=== PATIENT | female | born 1960 | race Caucasian/White ===

== ENCOUNTER 2020-08-17 12:01 | Outpatient (REF) | payer MEDICARE, SELFPAY ==
--- NOTE | 2020-08-17 12:07 | MM_ITS ---
EXAMINATION: MM SCREENING DIGITAL BREAST TOMOSYNTHESIS, BILATERAL CLINICAL INFORMATION: Screening. Asymptomatic. The lifetime risk of breast cancer based on the Tyrer-Cuzick Model is 7.0%. COMPARISON: Mammography: August 12, 2019 and studies dating back to September 18, 2010 TECHNIQUE: Digital breast tomosynthesis is performed in both the craniocaudal and mediolateral oblique views along with computer-aided detection (CAD). Synthesized 2D images are generated from the tomosynthesis. FINDINGS: There are scattered areas of fibroglandular density (ACR BI-RADS breast composition Category b). There are no significant masses, abnormal calcifications, or other abnormalities. MM/MM tomosynthesis screening BI IMPRESSION: There are no significant changes from prior study. ASSESSMENT: BI-RADS 1: Negative RECOMMENDATION: Routine annual mammography screening. This patient's information was entered into a reminder system with a target due date for their next mammogram.
--- NOTE | 2020-08-26 10:30 | MHC.HEMONCSW ---
RECEIVED YOHANA BELL FOR CT CHEST WITH C AUTH# [id number] RANGE OF SERVICE; 08/26/20 TO 02/22/21 GIVEN TO [employer] LOADER TO COMPLETE THIS TASK.
== END 2020-08-17 12:02 | disposition home or self-care (01) ==
LOC: HO.MAMMO 12:01
PROVIDERS: Visit Provider Nurse Practitioner Family
DX: Z12.31 Encounter for screening mammogram for malignant neoplasm of breast (principal)
CPT/HCPCS: 77063; 77067

== ENCOUNTER 2020-08-31 08:38 | Outpatient (REF) | payer MEDICARE, SELFPAY ==
--- NOTE | 2020-08-31 08:41 | CT_ITS ---
EXAMINATION: CT CHEST WITH CONTRAST CLINICAL INFORMATION: Lung mass. Smoker. PE. COMPARISON: CTA chest 07/09/2020. TECHNIQUE: Multidetector volumetric CT imaging of the chest was obtained after the administration of 65 mL of Omnipaque 350 intravenous contrast without immediate adverse reactions. Axial MIP volume rendering provided. Sagittal and coronal reformatted images were obtained. This CT examination was performed using dose optimization techniques as appropriate, variously including the following: *Automated exposure control *Adjustment of mA and/or kV according to patient size (this includes techniques or standardized protocols for targeted exams where dose is matched to indication/reason for exam; i.e. extremities or head) *Use of iterative reconstruction technique DLP: 125 mGy-cm FINDINGS: FAC[employer]: Unremarkable. LUNGS: Previously visualized irregular infiltrative and mass-like opacity right lower lobe has resolved with residual stranding and patchy density likely scarring or atelectasis with minimal extension to the right posterior pleural space. No other pulmonary nodule, mass or consolidation seen. There is mild emphysema, stable. MEDIASTINUM: The heart size and the great vessels are normal caliber. There is no pericardial effusion. The central trachea and the bronchi are widely patent. The thyroid lobes are symmetrical and normal. The scan is not optimal to evaluate for pulmonary embolism. PLEURA: There is minimal loculated fluid along the right pleura and right lower lung, similar to previous study. AXILLA: Small shotty lymph nodes are seen in the axilla slightly more prominent on the left. UPPER ABDOMEN: The liver is normal size, shape and density. There is a 1.4 cm hypodensity in left hepatic lobe. OSSEOUS STRUCTURES: No lytic process seen. There is mild degenerative ventral spurring throughout dorsal spine. Mild straightening of thoracic kyphosis is noted. CT/CT chest w con IMPRESSION: Significant interval improvement in the right lower lobe infiltrative mass-like opacity from the previous study. There are residual atelectatic changes or scarring in the right lower lobe. Rest of the lungs are clear. There is minimal loculated anterior pleural effusion similar to previous study. Right posterior pleural effusion has resolved. Small cyst and likely a second smaller cyst in the left hepatic lobe similar to previous study.
[2020-08-31] MEDS: iohexoL 350 MG/ML 100 ML INFUS..BTL 65 ML IV (10:18)
== END 2020-08-31 08:39 | disposition home or self-care (01) ==
LOC: HO.CT 08:38
PROVIDERS: PCP Nurse Practitioner Family; Visit Provider Internal Medicine
DX: R91.8 Other nonspecific abnormal finding of lung field (principal)
CPT/HCPCS: 71260; Q9967

== ENCOUNTER 2020-09-05 13:04 | Outpatient (REF) | payer MEDICARE, SELFPAY ==
[2020-09-05 14:14] LABS: MANUAL DIFF FLAG NO
[2020-09-05 14:19] LABS: Basophils Absolute Auto 0.1 X10*3/uL (0.0-0.2); Basophils Percent Auto 0.6 % (0-2); Eosinophils Absolute Auto 0.4 X10*3/uL (0.0-0.4); Eosinophils Percent Auto 4.4 % (0-4); Hematocrit 34.4 % (37-47); Hemoglobin 11.6 g/dl (12.0-16.0); Imm Gran Abs Auto 0.02 X10*3/uL (0.00-0.03); Imm Gran Pct Auto 0.3 % (0.0-0.4); Lymphocytes Percent Auto 24.7 % (20-40); Mean Corpuscular HGB Conc 33.7 g/dl (31.0-35.0); Mean Corpuscular Hemoglobin 32.9 pg (27.0-33.0); Mean Corpuscular Volume 97.5 fL (80-98); Mean Platelet Volume 9.1 fL (9.4-12.3); Monocytes Absolute Auto 0.8 X10*3/uL (0.1-1.2); Monocytes Percent Auto 10.3 % (2-11); Neutrophils Absolute Auto 4.8 X10*3/uL (2.0-8.3); Neutrophils Percent Auto 59.7 % (45-73); Platelet Count 279 X10*3/uL (160-400); Red Blood Count 3.53 X10*6/uL (4.20-5.50); Red Cell Distribution Width 13.9 % (11.0-16.0)
[2020-09-05 14:49] LABS: Alanine Aminotransferase 9 U/L (0-31); Albumin Level 4.2 g/dL (3.5-5.0); Alkaline Phosphatase 57 U/L (39-117); Anion Gap 13 (12-20); Aspartate Amino Transferase 18 U/L (5-31); Bilirubin Total 0.3 mg/dL (0.0-1.0); Blood Urea Nitrogen 16 mg/dL (9-16); C Reactive Protein 0.43 mg/dL (< or = 0.50); Carbon Dioxide 26 mmol/L (22-29); Chloride 105 mmol/L (96-108); Estimated Glomerular Filt Rate > 60; Glucose Random 100 mg/dL (60-115); Potassium 5.3 mmol/l (3.3-5.1); Sodium 139 mmol/L (135-145); Total Protein 6.4 g/dL (6.5-8.0)
[2020-09-05 15:24] LABS: Erythrocyte Sedimentation Rate 7 MM/HR (0-20)
== END 2020-09-05 13:05 | disposition home or self-care (01) ==
LOC: HO.HMGCLDS 13:04
PROVIDERS: PCP Nurse Practitioner Family; Visit Provider Student in an Organized Health Care Education/Training Program
DX: M13.80 Other specified arthritis, unspecified site (principal)
CPT/HCPCS: 36415; 80053; 85025; 85652; 86140

== ENCOUNTER 2020-09-07 11:31 | Outpatient (REF) | payer MEDICARE, SELFPAY ==
--- NOTE | 2020-09-07 | XR_ITS ---
EXAMINATION: XR HIP, LEFT CLINICAL INFORMATION: Acute left hip pain COMPARISON: None TECHNIQUE: Pelvis one view. Three views of the left hip. FINDINGS: LEFT HIP: No acute fracture or dislocation is seen. Kokk-tl-ipnkzgei left hip arthritis. Small ossification superior to the greater trochanter. PELVIS: Leoy-hv-xvhysqlw right hip arthritis. SI joints and symphysis pubis are intact. Degenerative changes in the lower lumbar spine. Prominent spurring from the left iliac crest, and to a lesser degree on the right side. IUD projected over the pelvis. Visualized bowel gas pattern appears unremarkable. XR/XR hip LT w PEL1V IMPRESSION: 1. Oyer-wl-kbdgmldm left hip arthritis. No evidence of acute fracture or dislocation. 2. Idbi-eu-ppfxrlin right hip arthritis.
== END 2020-09-07 11:32 | disposition home or self-care (01) ==
LOC: HO.HMGCX 11:31
PROVIDERS: PCP Nurse Practitioner Family; Visit Provider Nurse Practitioner Family
DX: M25.552 Pain in left hip (principal)
CPT/HCPCS: 73502

== ENCOUNTER → 2020-09-08 12:22 | Outpatient (BNVA) | payer MEDICARE, SELFPAY | PROVIDERS: PCP Nurse Practitioner Family; Referring Provider Nurse Practitioner Family; Visit Provider Student in an Organized Health Care Education/Training Program | DX: M06.00 Rheumatoid arthritis without rheumatoid factor, unspecified site (principal); Z79.899 Other long term (current) drug therapy | CPT/HCPCS: 99212 ==

== ENCOUNTER → 2020-09-28 14:03 | Outpatient (BNVA) | payer MEDICARE, SELFPAY | PROVIDERS: PCP Nurse Practitioner Family; Visit Provider Internal Medicine | DX: I26.99 Other pulmonary embolism without acute cor pulmonale (principal); R91.8 Other nonspecific abnormal finding of lung field; F17.200 Nicotine dependence, unspecified, uncomplicated | CPT/HCPCS: 99212 ==

== ENCOUNTER 2020-10-04 13:02 | Outpatient (REF) | payer MEDICARE, SELFPAY | END 2020-10-04 13:03 | disposition home or self-care (01) | LOC: HO.RESP 13:02 | PROVIDERS: PCP Nurse Practitioner Family; Visit Provider Internal Medicine | DX: Z13.89 Encounter for screening for other disorder (principal) ==

== ENCOUNTER 2020-12-20 14:06 | Outpatient (REF) | payer MEDICARE, SELFPAY ==
--- NOTE | 2020-12-20 17:41 | PFT_ITS ---
Forced vital capacity, FEV1, CAX94-46 are all normal. HPE76-45 is slightly decreased. MVV normal. Post bronchodilator therapy, BBH94-15 is also improved to normal. Total lung capacity and residual volume normal. Diffusion capacity slightly decreased. CONCLUSION: Mild degree of small airway obstructive disorder, which improves after bronchodilator therapy. This may be consistent with a mild degree of bronchial asthma. Clinical correlation is recommended. MD ROSEANNA Hairston/PRETTY / [id number]
== END 2020-12-20 14:07 | disposition home or self-care (01) ==
LOC: HO.RESP 14:06
PROVIDERS: PCP Nurse Practitioner Family; Visit Provider Internal Medicine
DX: I26.99 Other pulmonary embolism without acute cor pulmonale (principal); F17.200 Nicotine dependence, unspecified, uncomplicated
CPT/HCPCS: 94060; 94727; 94729

== ENCOUNTER → 2021-03-06 13:40 | Outpatient (BNVA) | payer MEDICARE, SELFPAY | PROVIDERS: PCP Nurse Practitioner Family; Visit Provider Internal Medicine | DX: I26.99 Other pulmonary embolism without acute cor pulmonale (principal); F17.200 Nicotine dependence, unspecified, uncomplicated; R91.8 Other nonspecific abnormal finding of lung field | CPT/HCPCS: 99212 ==

== ENCOUNTER 2021-04-06 14:47 | Outpatient (REF) | payer MEDICARE, SELFPAY ==
[2021-04-06 15:12] LABS: MANUAL DIFF FLAG NO
[2021-04-06 15:19] LABS: Basophils Absolute Auto 0.1 X10*3/uL (0.0-0.2); Basophils Percent Auto 0.6 % (0-2); Eosinophils Absolute Auto 0.4 X10*3/uL (0.0-0.4); Eosinophils Percent Auto 4.4 % (0-4); Hematocrit 35.6 % (37-47); Hemoglobin 12.1 g/dl (12.0-16.0); Imm Gran Abs Auto 0.02 X10*3/uL (0.00-0.03); Imm Gran Pct Auto 0.2 % (0.0-0.4); Lymphocytes Absolute Auto 1.9 X10*3/uL (1.2-4.9); Lymphocytes Percent Auto 23.2 % (20-40); Mean Corpuscular Hemoglobin 33.9 pg (27.0-33.0); Mean Corpuscular Volume 99.7 fL (80-98); Mean Platelet Volume 8.7 fL (9.4-12.3); Monocytes Percent Auto 11.5 % (2-11); Neutrophils Percent Auto 60.1 % (45-73); Platelet Count 248 X10*3/uL (160-400); Red Blood Count 3.57 X10*6/uL (4.20-5.50); Red Cell Distribution Width 12.8 % (11.0-16.0); White Blood Count 8.3 X10*3/uL (4.8-10.8)
[2021-04-06 15:27] LABS: Estimated Average Glucose 97 mg/dL
[2021-04-06 15:49] LABS: Alanine Aminotransferase 11 U/L (0-31); Albumin Level 4.3 g/dL (3.5-5.0); Alkaline Phosphatase 61 U/L (39-117); Anion Gap 11 (12-20); Aspartate Amino Transferase 23 U/L (5-31); Bilirubin Total 0.4 mg/dL (0.0-1.0); Blood Urea Nitrogen 16 mg/dL (9-16); C Reactive Protein 0.32 mg/dL (< or = 0.50); Calcium 9.4 mg/dL (8.4-10.2); Carbon Dioxide 29 mmol/L (22-29); Chloride 103 mmol/L (96-108); Estimated Glomerular Filt Rate > 60; Glucose Random 75 mg/dL (60-115); Potassium 4.4 mmol/L (3.3-5.1); Sodium 139 mmol/L (135-145); Total Protein 6.6 g/dL (6.5-8.0)
[2021-04-06 15:58] LABS: Cholesterol 190 mg/dL; Erythrocyte Sedimentation Rate 7 MM/HR (0-20); HDL Cholesterol 97 mg/dL; LDL Cholesterol Calculated 73 mg/dl; Triglycerides 104 mg/dL
[2021-04-06 16:09] LABS: Vitamin D 25-OH Total 35.3 ng/mL (>30)
== END 2021-04-06 14:48 | disposition home or self-care (01) ==
LOC: HO.LAB 14:47
PROVIDERS: Absent Provider Student in an Organized Health Care Education/Training Program; PCP Nurse Practitioner Family; Visit Provider Nurse Practitioner Family
DX: M06.00 Rheumatoid arthritis without rheumatoid factor, unspecified site (principal); E78.2 Mixed hyperlipidemia; I10 Essential (primary) hypertension; E11.610 Type 2 diabetes mellitus with diabetic neuropathic arthropathy; E55.9 Vitamin D deficiency, unspecified
CPT/HCPCS: 36415; 80053; 80061; 82306; 83036; 85025; 85652; 86140

== ENCOUNTER 2021-04-18 15:15 | Outpatient (REF) | payer MEDICARE, SELFPAY ==
--- NOTE | ~2021-04-18 | XR_ITS ---
EXAMINATION: XR FOOT, RIGHT XR FOOT, LEFT CLINICAL INFORMATION: Rheumatoid arthritis with rheumatoid factor. COMPARISON: 11/09/2019 and studies dating back to 06/10/2012. TECHNIQUE: 3 views of each foot. FINDINGS: RIGHT FOOT: No acute fracture or dislocation is evident. There has been progression in narrowing of the tarsometatarsal joints as well as the naviculocuneiform joints with marginal spurring and sclerosis. The 1st carpometacarpal joint space appears maintained. There appears to be some compression of the navicular which is chronic. The metatarsophalangeal joints appear maintained. There is question of periarticular erosion about the base of the 1st proximal phalanx. There is soft tissue prominence seen about the 5th metatarsophalangeal joint. There appears be a periarticular erosion involving the 5th metatarsal head. There is some deformity about the distal 4th metatarsal which is likely post traumatic in nature. A large plantar calcaneal spur is seen. Small Achilles calcaneal spur noted. LEFT FOOT: No acute fracture or dislocation is evident. Soft tissue swelling is seen about the 5th metatarsophalangeal joint. There appears be some degree of subluxation about the 5th metatarsophalangeal joint. There is narrowing with sclerosis and spurring seen involving the tarsometatarsal joints. No significant narrowing of the intertarsal joint space is identified. There is some degenerative spurring about the 1st metatarsophalangeal joint. There is some deformity from previous healed fracture of the 3rd proximal phalanx. Interphalangeal joints appear unremarkable. There is some irregularity about the distal tuft of the left 1st distal phalanx with soft tissue swelling present. No gas within the soft tissues is appreciated. Osteomyelitis versus postsurgical change likely. Plantar and Achilles calcaneal spurs present. XR/XR foot RT min 3V IMPRESSION: Bilateral degenerative change of the feet, right greater than left, as described without significant erosive component arthritide. Question osteomyelitis versus postsurgical change distal tuft left 1st toe which is new since the study of 10/12/2019.
== END 2021-04-18 15:16 | disposition home or self-care (01) ==
LOC: HO.HMGCX 15:15
PROVIDERS: PCP Nurse Practitioner Family; Visit Provider Student in an Organized Health Care Education/Training Program
DX: M06.00 Rheumatoid arthritis without rheumatoid factor, unspecified site (principal)
CPT/HCPCS: 73630

== ENCOUNTER → 2021-04-21 14:36 | Outpatient (BNVA) | payer MEDICARE, SELFPAY | PROVIDERS: PCP Nurse Practitioner Family; Visit Provider Student in an Organized Health Care Education/Training Program | DX: M06.00 Rheumatoid arthritis without rheumatoid factor, unspecified site (principal) | CPT/HCPCS: 99212 ==

== ENCOUNTER → 2021-06-29 13:36 | Outpatient (BNVA) | payer MEDICARE, SELFPAY | PROVIDERS: PCP Nurse Practitioner Family; Visit Provider Internal Medicine | DX: J42 Unspecified chronic bronchitis (principal); F17.200 Nicotine dependence, unspecified, uncomplicated; I26.99 Other pulmonary embolism without acute cor pulmonale | CPT/HCPCS: 99212 ==

== ENCOUNTER → 2021-07-21 11:30 | Outpatient (BNVA) | payer MEDICARE, SELFPAY | PROVIDERS: PCP Nurse Practitioner Family; Visit Provider Nurse Practitioner Family | DX: M06.00 Rheumatoid arthritis without rheumatoid factor, unspecified site (principal) | CPT/HCPCS: 99212 ==

== ENCOUNTER 2021-09-13 13:16 | Outpatient (REF) | payer MEDICARE, SELFPAY ==
--- NOTE | ~2021-09-13 | CT_ITS ---
EXAMINATION: CT CHEST SCREENING CLINICAL INFORMATION: Current smoker. 40 pack-year history. COMPARISON: Previous chest CT scans most recent August 2020 TECHNIQUE: Multidetector volumetric CT imaging of the chest is performed without contrast using low dose technique. Additional 2D coronal and sagittal reformatted images and axial 3D maximum intensity projection (MIP) images are generated on the CT workstation. This CT examination was performed using dose optimization techniques as appropriate, variously including the following: *Automated exposure control *Adjustment of mA and/or kV according to patient size (this includes techniques or standardized protocols for targeted exams where dose is matched to indication/reason for exam; i.e. extremities or head) *Use of iterative reconstruction technique DLP: 57 mGy-cm FINDINGS: LUNGS: There is evidence of mild paraseptal emphysema. There is a 1 cm nodular density in the posterior costophrenic sulcus of the right lower lobe probably representing subsegmental atelectasis or scarring. This is decreased in size from prior exam August 2020. The lungs are otherwise clear. MEDIASTINUM: There is evidence of atherosclerotic disease. The mediastinum is otherwise normal. PLEURA: There is a small loculated fluid collection or cyst along the anterior right diaphragmatic surface. This is unchanged. No other pleural effusion or pleural thickening. AXILLA: No lymphadenopathy. UPPER ABDOMEN: Stable 1.4 cm low-attenuation lesion in the left lobe of the liver probably representing a cyst. Of atherosclerotic disease. OSSEOUS STRUCTURES: There are degenerative changes of the spine and curvature to the right. CT/CT lung screening IMPRESSION: Interval decrease in scarring or subsegmental atelectasis in the right lower lobe. Mild paraseptal emphysema. Stable right anterior lower loculated pleural fluid collection. ASSESSMENT: Lung-RADS category 2: Benign RECOMMENDATION: Annual low-dose chest CT follow-up recommended.
== END 2021-09-13 13:17 | disposition home or self-care (01) ==
LOC: HO.CT 13:16
PROVIDERS: PCP Nurse Practitioner Family; Visit Provider Physician Assistant Medical
DX: Z12.2 Encounter for screening for malignant neoplasm of respiratory organs (principal); F17.210 Nicotine dependence, cigarettes, uncomplicated
CPT/HCPCS: 71271

== ENCOUNTER 2021-10-06 08:42 | Outpatient (REF) | payer MEDICARE, SELFPAY | END 2021-10-06 08:43 | disposition home or self-care (01) | LOC: HO.HMGCLDS 08:42 | PROVIDERS: PCP Nurse Practitioner Family; Visit Provider Internal Medicine | DX: Z20.822 Contact with and (suspected) exposure to COVID-19 (principal) | CPT/HCPCS: C9803; U0003; U0005 ==

== ENCOUNTER → 2021-11-08 13:55 | Outpatient (BNVA) | payer MEDICARE, SELFPAY | PROVIDERS: PCP Nurse Practitioner Family; Visit Provider Internal Medicine | DX: J42 Unspecified chronic bronchitis (principal); F17.210 Nicotine dependence, cigarettes, uncomplicated; Z71.6 Tobacco abuse counseling | CPT/HCPCS: 99212 ==

== ENCOUNTER 2022-01-09 03:27 | Emergency (ER) | payer MEDICARE, SELFPAY ==
[2022-01-09 03:35] VITALS: BP 152/85; PULSE 92; RESP 14; TEMP 37; O2SAT 93; BMI 31.1
--- NOTE | 2022-01-09 04:10 | ED_ITS ---
HPI - Dental/Oral General Chief complaint: Dental/Oral Stated complaint: molar pulled 3/8; severe headache Time Seen by Provider: 01/09/22 04:09 Source: patient Mode of arrival: ambulatory Limitations: no limitations History of Present Illness HPI Narrative: 61-year-old female status post lower left 3rd molar tooth extraction 7 days ago, patient is taking OxyContin and oxycodone for chronic pain issue that patient ran out of her medication came in today for severe pain in in the left side of her face. Patient otherwise declined any fever or chills. Related Data Home Medications Medication Instructions Recorded Confirmed amlodipine 2.5 mg tablet 1 tab PO DAILY 08/12/20 11/08/21 baclofen 10 mg tablet 1 tab PO TID 08/12/20 11/08/21 blood sugar diagnostic (FreeStyle 08/12/20 11/08/21 Lite Strips) bupropion HCl 300 mg 24 hr tablet, 1 tab PO DAILY 08/12/20 11/08/21 extended release diclofenac sodium 1 % topical gel 4 g TOPICAL TID PRN 08/12/20 11/08/21 docusate sodium 100 mg capsule 1 cap PO BID 08/12/20 11/08/21 (DOK) furosemide 20 mg tablet 1 tab PO BID PRN 08/12/20 11/08/21 gabapentin 300 mg capsule 900 mg PO TID 08/12/20 11/08/21 hydroxyzine HCl 25 mg tablet 1 tab PO TID PRN 08/12/20 11/08/21 levothyroxine 88 mcg tablet 1 tab PO QAM 08/12/20 11/08/21 (Euthyrox) meloxicam 15 mg tablet 1 tab PO DAILY 08/12/20 11/08/21 metformin 850 mg tablet 1 tab PO BID 08/12/20 11/08/21 omeprazole 20 mg capsule,delayed 1 cap PO DAILY 08/12/20 11/08/21 release oxybutynin chloride 10 mg 1 tab PO DAILY 08/12/20 11/08/21 tablet,extended release 24 hr oxycodone 20 mg tablet,crush 1 tab PO Q12H 08/12/20 11/08/21 resistant,extended release 12 hr (OxyContin) oxycodone-acetaminophen 10 mg-325 2 tab PO Q6H PRN 08/12/20 11/08/21 mg tablet simvastatin 20 mg tablet 1 tab PO BEDTIME 08/12/20 11/08/21 venlafaxine 150 mg 1 cap PO DAILY 08/12/20 11/08/21 capsule,extended release 24 hr nystatin 100,000 unit/gram topical TOPICAL BID PRN 03/06/21 11/08/21 cream albuterol sulfate 90 mcg/actuation 0 mcg INHALATION 11/08/21 11/08/21 aerosol inhaler clotrimazole-betamethasone 1 appl TOPICAL BID 11/08/21 11/08/21 %-0.05 % topical cream Previous Rx's Medication Instructions Recorded hydroxychloroquine 200 mg tablet 200 mg PO BID #60 tab 07/18/21 Allergies Allergy/AdvReac Type Severity Reaction Status Date / Time lisinopril Allergy Intermediate Swelling Verified 11/08/21 14:02 clavulanic acid Allergy Mild RASH Verified 11/08/21 14:02 [From Augmentin] aripiprazole [From ABILIFY] AdvReac Intermediate EDEMA Verified 11/08/21 14:02 duloxetine [From CYMBALTA] AdvReac Intermediate WT Verified 11/08/21 14:02 GAIN/EDEMA ibuprofen AdvReac Unknown kidney Verified 11/08/21 14:02 function Review of Systems Review of Systems: All other systems are reviewed and are negative Constitutional: Reports as per HPI and Reports no additional constitutional complaints Eyes: Reports as per HPI and Reports no additional eye complaints Reports system reviewed and no additional complaints, except as documented Cardiovascular: Reports as per HPI and Reports no additional cardiovascular c omplaints Respiratory: Reports as per HPI and Reports no additional respiratory complaints Gastrointestinal: Reports as per HPI and Reports no additional gastrointestinal complaints Genitourinary: Reports no additional female genitourinary complaints Musculoskeletal: Reports no additional musculoskeletal complaints Skin/Breast: Reports system reviewed and no additional complaints, except as docu Psychiatric: Reports no additional psychiatric complaints Endocrine: Reports no additional endocrine complaints Hematologic/Lymphatic: Reports no additional hematologic/lymphatic complaints Allergic/Immunologic: Reports no additional allergic/immunologic complaints Reports system reviewed and no additional complaints, except as documented and Reports Abnormal speech present [facility] Past Medical History Medical History Carpal tunnel syndrome Chronic bronchitis Diabetes Neuropathy Osteoarthritis Osteomyelitis Pilonidal cyst Pleurisy Pulmonary embolism Rheumatoid arthritis Seronegative rheumatoid arthritis Smoker Surgical History H/O hernia repair History of left knee replacement (~2017) History of surgery on arm Previous back surgery (~2016) Family History Family History Mother CHF (congestive heart failure) Stroke Uterine cancer Father CHF (congestive heart failure) Sister Diabetes Brother Diabetes Pulmonary embolism Social History Social History Are you a primary prompt care rn to a significant other at home: No Alcohol intake: current Alcohol intake frequency: a few times a week Alcohol type: hard liquor Patient Tobacco Use Status: Current everyday Tobacco user Tobacco use type: Cigarette Cigarette Packs Per Day: 1 Cigarettes Per Day: 20 Years Smoked: 40 Advance Directives: No Patient : No Physical Exam Vital Signs: Vital Signs: Last Vital Signs Temp 98.6 F 01/09/22 03:35 Pulse 92 01/09/22 03:35 Resp 14 01/09/22 03:35 BP 152/85 H 01/09/22 03:35 Pulse Ox 93 01/09/22 03:35 BMI result Body Mass Index 31.1 Vital signs have been reviewed as appeared to be correct. Blood pressure normal. Heart rate normal. Respiration rate normal. Temperature normal. Oxygen saturation normal. Appearance: Alert. Oriented X3. No acute distress. Head: Normal external exam. Normocephalic. Atraumatic. No [place] signs noted. No raccoon eyes noted. Mouth exam: Left side of the lower show tenderness, no fluctuation, no erythema, no dry sockets is appreciated. Eyes: PERRLA. EOMI. Conjunctiva and sclera normal. Eyelids normal. ENT: TM's Normal. Pharynx normal. Uvula midline. Moist mucous membranes. No trismus noted. No drooling noted. No muffled voice noted. Neck: Normal inspection. Neck supple. FROM. No adenopathy. Thyroid Normal. No meningeal signs. No neck mass noted. CVS: Normal heart rate and rhythm. Heart sound normal. No murmurs noted. Pulses normal throughout. Respiratory: No respiratory distress. Painless inspiration. Breath sounds normal. No wheezes/rales/rhonchi noted. Chest nontender. No accessory muscle usage noted or decreased air movement noted. Abdomen: Soft and nontender. Bowel sounds normal in all 4 quadrants. No distention noted. No organomegaly noted. No visible injury noted. Back: No CVA tenderness. Full range of motion noted. Skin: Skin warm and dry. Normal skin color. Normal skin turgor. No rashes/lesions/lacerations noted. Extremities: No lower extremity edema. Extremities exhibit normal range of motion. Extremities nontender. Neuro: Oriented X 3. Cranial nerve exam: II-XII are grossly intact No motor deficit. No sensory deficit. Reflexes normal. Course Course Course Narrative: Assessment and plan. 61-year-old female status post left lower 3rd molar extraction with post extraction pain, patient has very low threshold for pain and using narcotic for chronic pain issue. Patient feels better with 10 mg of oxycodone. Will d ischarge to follow-up with her dentist in the morning. Discharge Plan Discharge Clinical Impression: Toothache Patient Disposition: Home, Self-Care Instructions: Toothache (ED) Additional Instructions: Call your dentist today and make an appointment to check for postoperative extraction complication. Prescriptions: No Action hydroxychloroquine 200 mg tablet 200 mg PO BID Qty: 60 5RF oxybutynin chloride 10 mg tablet extended release 24hr 1 tab PO DAILY 0RF meloxicam 15 mg tablet 1 tab PO DAILY 0RF metformin 850 mg tablet 1 tab PO BID 0RF venlafaxine 150 mg capsule,extended release 24hr 1 cap PO DAILY 0RF amlodipine 2.5 mg tablet 1 tab PO DAILY 0RF (DME) FreeStyle Lite Strips Strip 1 strip MISCELLANEOUS BID 0RF levothyroxine [Euthyrox] 88 mcg tablet 1 tab PO QAM 0RF oxycodone-acetaminophen 10-325 mg tablet 2 tab PO Q6H PRN (Reason: pain) 0RF baclofen 10 mg tablet 1 tab PO TID 0RF simvastatin 20 mg tablet 1 tab PO BEDTIME 0RF docusate sodium [DOK] 100 mg capsule 1 cap PO BID 0RF gabapentin 300 mg capsule 900 mg PO TID 0RF omeprazole 20 mg capsule,delayed release(DR/EC) 1 cap PO DAILY 0RF bupropion HCl 300 mg tablet extended release 24 hr 1 tab PO DAILY 0RF oxycodone [OxyContin] 20 mg tablet,oral only,ext.rel.12 hr 1 tab PO Q12H 0RF hydroxyzine HCl 25 mg tablet 1 tab PO TID PRN (Reason: Itching) 0RF furosemide 20 mg tablet 1 tab PO BID PRN (Reason: Systemic Signs And Symptoms) 0RF diclofenac sodium 1 % gel 4 g topical TID PRN (Reason: Pain) 0RF nystatin 100,000 unit/gram cream topical BID PRN0RF albuterol sulfate 90 mcg/actuation HFA aerosol inhaler 0 mcg inhalation 0RF clotrimazole-betamethasone 1-0.05 % cream topical BID 0RF
[2022-01-09] MEDS: oxyCODONE HCl Immed Release 5 MG TABLET 10 MG PO (04:30)
== END 2022-01-09 04:34 | disposition home or self-care (01) ==
PROVIDERS: Emergency Provider Emergency Medicine; PCP Nurse Practitioner Family
DX: K08.89 Other specified disorders of teeth and supporting structures (principal); E11.9 Type 2 diabetes mellitus without complications; F17.200 Nicotine dependence, unspecified, uncomplicated; Z98.818 Other dental procedure status
CPT/HCPCS: 99283

== ENCOUNTER 2022-01-14 20:09 | Emergency (ER) | payer MEDICARE, SELFPAY | END 2022-01-14 22:38 | disposition left against medical advice (07) | PROVIDERS: Emergency Provider Emergency Medicine; PCP Nurse Practitioner Family | DX: R51.9 Headache, unspecified (principal) ==

== ENCOUNTER 2022-01-15 19:28 | Emergency (ER) | payer MEDICARE, SELFPAY | END 2022-01-15 19:55 | disposition left against medical advice (07) | PROVIDERS: Emergency Provider Emergency Medicine; PCP Nurse Practitioner Family | DX: R22.0 Localized swelling, mass and lump, head (principal) ==

== ENCOUNTER 2022-01-16 08:23 | Emergency (ER) | payer MEDICARE, SELFPAY ==
--- NOTE | ~2022-01-16 | CT_ITS ---
EXAMINATION: CT FACIAL BONES WITH CONTRAST CLINICAL INFORMATION: Third molar extraction. Left facial swelling and induration. COMPARISON: Previous CT scan November 2019 TECHNIQUE: Axial images through the facial bones following 85 mL Omnipaque 350 intravenous contrast. Sagittal and coronal reconstructions on the technologist workstation were performed. This CT examination was performed using dose optimization techniques as appropriate, variously including the following: *Automated exposure control *Adjustment of mA and/or kV according to patient size (this includes techniques or standardized protocols for targeted exams where dose is matched to indication/reason for exam; i.e. extremities or head) *Use of iterative reconstruction technique DLP: 411 mGy-cm FINDINGS: There is poor dentition. There is been extraction of multiple teeth on the left. There is enlargement of the left masseter muscle. There is low-attenuation or fluid collection in the left masseter muscle on both sides of the mandible suggestive of an abscess. This measures 3 x 5 cm in transverse and AP dimension and approximately 3 cm in longitudinal dimension. This is continuous with a more superior low-attenuation collection adjacent to the skull in the left temporalis muscle. This measures 1.2 x 5 cm and transverse and AP dimension and 4 cm in longitudinal dimension. There is overlying stranding of the subcutaneous fat. Visualized intracranial structures are normal. The orbits are normal. There is membranous soft tissue thickening seen in both maxillary sinuses. The paranasal sinuses are otherwise well aerated and clear. The temporomandibular joints are normal. There are degenerative changes of the cervical spine. There is shotty cervical lymphadenopathy. The naso, melinda-and hypopharynx and larynx are normal. Visualized salivary glands are normal. Vascular structures are normal. CT/CT facial bones w con IMPRESSION: Fluid collections in the left masseter muscle and left temporalis muscle suggestive of abscesses, likely odontogenic in origin.
[2022-01-16 08:55] VITALS: BP 144/79; PULSE 86; RESP 16; TEMP 36.8; O2SAT 96; BMI 30.3
--- NOTE | 2022-01-16 09:33 | ED.GENADULT ---
HPI - General Adult General Chief complaint: General Medical Stated complaint: Facial swelling Time Seen by Provider: 01/16/22 09:09 Source: patient Mode of arrival: ambulatory History of Present Illness HPI narrative: 61-year-old female with a past medical history of chronic pain on opiates, s/p left lower 3rd molar extracted 2 weeks ago presenting to the ED complaining of low-grade fever T-max 99 degrees, left-sided facial swelling/pain, nausea, & vomiting yesterday. Reports decreased p.o. intake secondary to nausea, left ear pain and painful swallowing. Has been taking Clindamycin. Denies chills, abdominal pain, diarrhea, inability to swallow Onset (ago): week(s) Related Data Home Medications Medication Instructions Recorded Confirmed amlodipine 2.5 mg tablet 1 tab PO DAILY 08/12/20 11/08/21 baclofen 10 mg tablet 1 tab PO TID 08/12/20 11/08/21 blood sugar diagnostic (FreeStyle 08/12/20 11/08/21 Lite Strips) bupropion HCl 300 mg 24 hr tablet, 1 tab PO DAILY 08/12/20 11/08/21 extended release diclofenac sodium 1 % topical gel 4 g TOPICAL TID PRN 08/12/20 11/08/21 docusate sodium 100 mg capsule 1 cap PO BID 08/12/20 11/08/21 (DOK) furosemide 20 mg tablet 1 tab PO BID PRN 08/12/20 11/08/21 gabapentin 300 mg capsule 900 mg PO TID 08/12/20 11/08/21 hydroxyzine HCl 25 mg tablet 1 tab PO TID PRN 08/12/20 11/08/21 levothyroxine 88 mcg tablet 1 tab PO QAM 08/12/20 11/08/21 (Euthyrox) meloxicam 15 mg tablet 1 tab PO DAILY 08/12/20 11/08/21 metformin 850 mg tablet 1 tab PO BID 08/12/20 11/08/21 omeprazole 20 mg capsule,delayed 1 cap PO DAILY 08/12/20 11/08/21 release oxybutynin chloride 10 mg 1 tab PO DAILY 08/12/20 11/08/21 tablet,extended release 24 hr oxycodone 20 mg tablet,crush 1 tab PO Q12H 08/12/20 11/08/21 resistant,extended release 12 hr (OxyContin) oxycodone-acetaminophen 10 mg-325 2 tab PO Q6H PRN 08/12/20 11/08/21 mg tablet simvastatin 20 mg tablet 1 tab PO BEDTIME 08/12/20 11/08/21 venlafaxine 150 mg 1 cap PO DAILY 08/12/20 11/08/21 capsule,extended release 24 hr nystatin 100,000 unit/gram topical TOPICAL BID PRN 03/06/21 11/08/21 cream albuterol sulfate 90 mcg/actuation 0 mcg INHALATION 11/08/21 11/08/21 aerosol inhaler clotrimazole-betamethasone 1 appl TOPICAL BID 11/08/21 11/08/21 %-0.05 % topical cream Previous Rx's Medication Instructions Recorded hydroxychloroquine 200 mg tablet 200 mg PO BID #60 tab 07/18/21 Allergies Allergy/AdvReac Type Severity Reaction Status Date / Time lisinopril Allergy Intermediate Swelling Verified 01/15/22 16:39 clavulanic acid Allergy Mild RASH Verified 01/15/22 16:39 [From Augmentin] aripiprazole [From ABILIFY] AdvReac Intermediate EDEMA Verified 01/15/22 16:39 duloxetine [From CYMBALTA] AdvReac Intermediate WT Verified 01/15/22 16:39 GAIN/EDEMA ibuprofen AdvReac Unknown kidney Verified 01/15/22 16:39 function Review of Systems Review of Systems: Constitutional: +Fever, No Chills, No Fatigue, No Malaise ENT/Mouth: +dental pain, + Ear Pain, No Nasal Congestion, No Sinus Pain, No Hoarseness, + sore throat, No Rhinorrhea, No Swallowing Difficulty Eyes: No Eye Pain, No Swelling, No Redness, No Vision Changes Cardiovascular: No Chest Pain, No SOB, No Edema, No Palpitations Respiratory: No Cough, No Sputum, No Dyspnea Gastrointestinal: + Nausea, + Vomiting, No Diarrhea, No Constipation, No Abdominal pain Genitourinary: No Dysuria, No Urinary Frequency, No Hematuria Musculoskeletal: No joint pain, No Myalgias, No Joint Swelling Skin: No Skin Lesions, No rash Neuro: No Weakness, No Numbness, No Dizziness, No Headache Yes all other systems are reviewed and are negative [facility] Past Medical History Attestation statement: The following information was validated with the patient. Medical History Carpal tunnel syndrome Chronic bronchitis Diabetes Neuropathy Osteoarthritis Osteomyelitis Pilonidal cyst Pleurisy Pulmonary embolism Rheumatoid arthritis Seronegative rheumatoid arthritis Smoker Surgical History H/O hernia repair History of left knee replacement (~2017) History of surgery on arm Previous back surgery (~2015) Family History Family History Mother CHF (congestive heart failure) Stroke Uterine cancer Father CHF (congestive heart failure) Sister Diabetes Brother Diabetes Pulmonary embolism Social History Social History Are you a primary customer care specialist to a significant other at home: No Alcohol intake: current Alcohol intake frequency: a few times a week Alcohol type: hard liquor Patient Tobacco Use Status: Current everyday Tobacco user Tobacco use type: Cigarette Cigarette Packs Per Day: 1 Cigarettes Per Day: 20 Years Smoked: 40 Advance Directives: No Advance Directives Information Provided: No Patient : No Physical Exam ED Vital Signs: Vital Signs - 24 hr 01/16/22 08:55 Temperature 98.3 F Pulse Rate 86 Respiratory Rate 16 Blood Pressure 144/79 H Pulse Oximetry 96 BMI result Body Mass Index 30.3 Const General: cooperative, healthy appearing, no acute distress, alert and awake Orientation/consciousness: patient oriented x3 Limitations: no limitations HENMT Other: + left-sided facial swelling noted to temporal area, mastoid, and frontal scalp. + indurated and tender to palpation, no erythema, no fluctuance, no crepitus + left lower 3rd molar with noted swelling, erythema, and pus drainage. No fluctuance appreciated Head: Yes normal to inspection Ears: hearing grossly normal bilaterally, external ears normal, TM's normal bilaterally and mastoid abnormal (+ left mastoid tenderness) General nose exam: Normal external nose present Face and sinus: No crepitus Mouth: Normal oral and palatal mucosa present and no drooling Throat: Yes uvula midline Eyes General: appearance normal, both eyes and all related structures EOM: EOMs intact bilaterally Neck Neck: Yes normal visual inspection, Yes no meningeal signs, Yes supple and No anterior neck swelling Resp Effort & Inspection: normal respiratory effort, not labored, no stridor and not tachypneic Auscultation: clear to auscultation bilaterally Cardio Rate: regular rate Heart sounds: S1 normal heart sound present and S2 normal heart sound present GI Inspection: Yes normal to inspection Palpation (GI): Soft to palpation, nontender and no guarding Skin Rashes: no rashes Wounds: no wounds Neuro General: patient oriented x3 and no meningeal signs Gait exam (Neuro): Normal gait present Extrem General: Yes normal to inspection Course Course Course Narrative: -1108--leukocytosis of 17.6 > IV Unasyn given. Lactic acid WNL. -magnesium low 1.3 > 2g IV repletion ordered. CRP elevated to 23.12 -1114--ESR elevated to 97 CT facial bones w con IMPRESSION: Fluid collections in the left masseter muscle and left temporalis muscle suggestive of abscesses, likely odontogenic in origin. > 1250-- [facility] closed to transfer. Will try [facility] -patient is still reporting persistent pain after 2 mg of IV morphine x2, 1 mg of IV Dilaudid given -1318-- patient accepted to [facility] ED to ED transfer, OMFS on board. Accepting physician Dr. Barrera Medical Decision Making [facility] Narrative Medical decision making narrative: 61-year-old female with a past medical history of chronic pain on opiates, s/p left lower 3rd molar extracted 2 weeks ago presenting to the ED complaining of low-grade fever T-max 99 degrees, left-sided facial swelling/pain, nausea, & vomiting yesterday. On exam vital signs stable, afebrile, NAD, physical exam as above. Concern for dental abscess vs edema/cellulitis vs osteomyelitis/mastoiditis Plan: Labs, IVF, antiemetics, CT, re-evaluate Medical Records Medical records reviewed: Yes I reviewed the patient's medical records. Lab Data Lab results reviewed: Yes I reviewed the patient's lab results. Result diagrams: 01/16/22 10:23 01/16/22 10:23 Labs: Lab Results 01/16/22 01/16/22 01/16/22 Range/Units 09:54 10:23 10:23 WBC 17.6 H (4.8-10.8) X10*3/uL RBC 3.38 L (4.20-5.50) X10*6/uL Hgb 11.6 L (12.0-16.0) g/dl Hct 33.8 L (37.0-47.0) % MCV 100.0 H (80.0-98.0) fL MCH 34.3 H (27.0-33.0) pg MCHC 34.3 (31.0-35.0) g/dl RDW 12.8 (11.0-16.0) % Plt Count 621 H (160-400) X10*3/uL MPV 8.7 L (9.4-12.3) fL Immature Gran % (Auto) 1.6 H (0.0-0.4) % Neut % (Auto) 75.2 H (45-73) % Lymph % (Auto) 6.9 L (20-40) % [place] % (Auto) 13.5 H (2-11) % Eos % (Auto) 2.5 (0-4) % Baso % (Auto) 0.3 (0-2) % Lymph # (Auto) 1.2 (1.2-4.9) X10*3/uL [place] # (Auto) 2.4 H (0.1-1.2) X10*3/uL Eos # (Auto) 0.4 (0.0-0.4) X10*3/uL Baso # (Auto) 0.1 (0.0-0.2) X10*3/uL Abs Immat Gran (auto) 0.28 H (0.00-0.03) X10*3/uL Absolute Neuts (auto) 13.3 H (2.0-8.3) x10*3/uL Absolute Nucleated RBC 0.000 (0.0-0.012) X10*3/uL Nucleated RBC % (auto) 0.0 (0.0-0.2) /100WBC Smear Tech's Comments VERIFIED ESR 97 H (0-20) MM/HR Sodium (135-145) mmol/L Potassium (3.3-5.1) mmol/L Chloride (96-108) mmol/L Carbon Dioxide (22-29) mmol/L Anion Gap (12-20) BUN (9-16) mg/dL Creatinine (0.5-1.4) mg/dL Estim Creat Clear Calc Estimated GFR Random Glucose (60-115) mg/dL Lactic Acid (0.5-2.0) mmol/L Calcium (8.4-10.2) mg/dL Magnesium (1.6-2.6) mg/dL Total Bilirubin (0.0-1.0) mg/dL Direct Bilirubin (0.0-0.5) mg/dL AST (5-31) U/L ALT (0-31) U/L Alkaline Phosphatase (39-117) U/L C-Reactive Protein (< or = 0.50) mg/dL Total Protein (6.5-8.0) g/dL Albumin (3.5-5.0) g/dL COVID-19 ([facility]) Negative (Negative) COVID-19 Clin Com See Note 01/16/22 01/16/22 Range/Units 10:23 10:23 WBC (4.8-10.8) X10*3/uL RBC (4.20-5.50) X10*6/uL Hgb (12.0-16.0) g/dl Hct (37.0-47.0) % MCV (80.0-98.0) fL MCH (27.0-33.0) pg MCHC (31.0-35.0) g/dl RDW (11.0-16.0) % Plt Count (160-400) X10*3/uL MPV (9.4-12.3) fL Immature Gran % (Auto) (0.0-0.4) % Neut % (Auto) (45-73) % Lymph % (Auto) (20-40) % [place] % (Auto) (2-11) % Eos % (Auto) (0-4) % Baso % (Auto) (0-2) % Lymph # (Auto) (1.2-4.9) X10*3/uL [place] # (Auto) (0.1-1.2) X10*3/uL Eos # (Auto) (0.0-0.4) X10*3/uL Baso # (Auto) (0.0-0.2) X10*3/uL Abs Immat Gran (auto) (0.00-0.03) X10*3/uL Absolute Neuts (auto) (2.0-8.3) x10*3/uL Absolute Nucleated RBC (0.0-0.012) X10*3/uL Nucleated RBC % (auto) (0.0-0.2) /100WBC Smear Tech's Comments ESR (0-20) MM/HR Sodium 137 (135-145) mmol/L Potassium 4.0 (3.3-5.1) mmol/L Chloride 98 (96-108) mmol/L Carbon Dioxide 27 (22-29) mmol/L Anion Gap 16 (12-20) BUN 16 (9-16) mg/dL Creatinine 0.67 (0.5-1.4) mg/dL Estim Creat Clear Calc 85.9 Estimated GFR > 60 Random Glucose 113 (60-115) mg/dL Lactic Acid 1.3 (0.5-2.0) mmol/L Calcium 9.3 (8.4-10.2) mg/dL Magnesium 1.3 L* (1.6-2.6) mg/dL Total Bilirubin 0.4 (0.0-1.0) mg/dL Direct Bilirubin 0.2 (0.0-0.5) mg/dL AST 14 (5-31) U/L ALT 12 (0-31) U/L Alkaline Phosphatase 114 D (39-117) U/L C-Reactive Protein 23.12 H (< or = 0.50) mg/dL Total Protein 6.2 L (6.5-8.0) g/dL Albumin 3.2 L D (3.5-5.0) g/dL COVID-19 ([facility]) (Negative) COVID-19 Clin Com Critical Care Time Critical Care Time Critical Care Time: Yes Total Critical Care Time: 35 Attestation: I have personally provided critical care time exclusive of time spent on separately billable procedures. Time includes review of lab data, radiology results, discussion with consultants, and monitoring for potential decompensation. Intervention performed as documented. Discharge Plan Discharge Clinical Impression: Facial abscess Patient Disposition: [facility] Transfer Details: ED to ED transfer [facility]. Accepting physician Dr. Barrera Prescriptions: No Action hydroxychloroquine 200 mg tablet 200 mg PO BID Qty: 60 5RF oxybutynin chloride 10 mg tablet extended release 24hr 1 tab PO DAILY 0RF meloxicam 15 mg tablet 1 tab PO DAILY 0RF metformin 850 mg tablet 1 tab PO BID 0RF venlafaxine 150 mg capsule,extended release 24hr 1 cap PO DAILY 0RF amlodipine 2.5 mg tablet 1 tab PO DAILY 0RF (DME) FreeStyle Lite Strips Strip 1 strip MISCELLANEOUS BID 0RF levothyroxine [Euthyrox] 88 mcg tablet 1 tab PO QAM 0RF oxycodone-acetaminophen 10-325 mg tablet 2 tab PO Q6H PRN (Reason: pain) 0RF baclofen 10 mg tablet 1 tab PO TID 0RF simvastatin 20 mg tablet 1 tab PO BEDTIME 0RF docusate sodium [DOK] 100 mg capsule 1 cap PO BID 0RF gabapentin 300 mg capsule 900 mg PO TID 0RF omeprazole 20 mg capsule,delayed release(DR/EC) 1 cap PO DAILY 0RF bupropion HCl 300 mg tablet extended release 24 hr 1 tab PO DAILY 0RF oxycodone [OxyContin] 20 mg tablet,oral only,ext.rel.12 hr 1 tab PO Q12H 0RF hydroxyzine HCl 25 mg tablet 1 tab PO TID PRN (Reason: Itching) 0RF furosemide 20 mg tablet 1 tab PO BID PRN (Reason: Systemic Signs And Symptoms) 0RF diclofenac sodium 1 % gel 4 g topical TID PRN (Reason: Pain) 0RF nystatin 100,000 unit/gram cream topical BID PRN0RF albuterol sulfate 90 mcg/actuation HFA aerosol inhaler 0 mcg inhalation 0RF clotrimazole-betamethasone 1-0.05 % cream topical BID 0RF
[2022-01-16] MEDS: ondansetron HCL 4 MG/2 ML VIAL IVPUSH (10:00)
[2022-01-16] MEDS: 0.9 % Sodium Chloride 1,000 ML 999 ML IV (10:00)
[2022-01-16] MEDS: Acetaminophen 325 MG TABLET 650 MG PO (10:00)
[2022-01-16 10:26] LABS: COVID-19 Test Negative (Negative)
[2022-01-16 10:33] LABS: Basophils Absolute Auto 0.1 X10*3/uL (0.0-0.2); Basophils Percent Auto 0.3 % (0-2); Eosinophils Absolute Auto 0.4 X10*3/uL (0.0-0.4); Eosinophils Percent Auto 2.5 % (0-4); Hematocrit 33.8 % (37.0-47.0); Hemoglobin 11.6 g/dl (12.0-16.0); Imm Gran Abs Auto 0.28 X10*3/uL (0.00-0.03); Imm Gran Pct Auto 1.6 % (0.0-0.4); Lymphocytes Absolute Auto 1.2 X10*3/uL (1.2-4.9); Lymphocytes Percent Auto 6.9 % (20-40); MANUAL DIFF FLAG SCAN; Mean Corpuscular HGB Conc 34.3 g/dl (31.0-35.0); Mean Corpuscular Hemoglobin 34.3 pg (27.0-33.0); Mean Platelet Volume 8.7 fL (9.4-12.3); Monocytes Absolute Auto 2.4 X10*3/uL (0.1-1.2); Monocytes Percent Auto 13.5 % (2-11); Neutrophils Absolute Auto 13.3 x10*3/uL (2.0-8.3); Neutrophils Percent Auto 75.2 % (45-73); Platelet Count 621 X10*3/uL (160-400); Red Blood Count 3.38 X10*6/uL (4.20-5.50); Red Cell Distribution Width 12.8 % (11.0-16.0); SCAN SMEAR FLAG 1; White Blood Count 17.6 X10*3/uL (4.8-10.8)
[2022-01-16 10:47] LABS: Lactic Acid 1.3 mmol/L (0.5-2.0)
[2022-01-16 10:51] LABS: SLIDE REVIEW VERIFIED
[2022-01-16 10:59] LABS: Sodium 137 mmol/L (135-145)
[2022-01-16 11:00] LABS: Alanine Aminotransferase 12 U/L (0-31); Albumin Level 3.2 g/dL (3.5-5.0); Alkaline Phosphatase 114 U/L (39-117); Anion Gap 16 (12-20); Aspartate Amino Transferase 14 U/L (5-31); Bilirubin Direct 0.2 mg/dL (0.0-0.5); Bilirubin Total 0.4 mg/dL (0.0-1.0); Blood Urea Nitrogen 16 mg/dL (9-16); C Reactive Protein 23.12 mg/dL (< or = 0.50); Calcium 9.3 mg/dL (8.4-10.2); Carbon Dioxide 27 mmol/L (22-29); Chloride 98 mmol/L (96-108); Creatinine Clr Calc Pharmacy 85.9; Estimated Glomerular Filt Rate > 60; Glucose Random 113 mg/dL (60-115); Magnesium 1.3 mg/dL (1.6-2.6); Total Protein 6.2 g/dL (6.5-8.0)
[2022-01-16 11:09] LABS: Erythrocyte Sedimentation Rate 97 MM/HR (0-20)
[2022-01-16] MEDS: Morphine Sulfate 2 MG/ML CARTRIDGE IVPUSH ×2 (11:15→12:22)
[2022-01-16] MEDS: Ampicillin Sodium/Sulbactam Na 3 GM in 0.9 % Sodium Chloride 100 ML IV (11:16)
[2022-01-16] MEDS: iohexoL 350 MG/ML 100 ML INFUS..BTL IV (11:50)
[2022-01-16] MEDS: Magnesium Sulfate/H2O 2 GM/50 ML PIGGYBACK IV (12:22)
[2022-01-16 14:00] VITALS: BP 134/66; RESP 18
[2022-01-16] MEDS: HYDROmorphone HCl 1 MG/ML SYRINGE IVPUSH (15:23)
[2022-01-16 15:39] VITALS: BP 154/77; PULSE 80; RESP 16; TEMP 36.9; O2SAT 95
[2022-01-16] MEDS: Morphine Sulfate 4 MG/ML CARTRIDGE IVPUSH (17:56)
--- NOTE | 2022-01-16 17:57 | PC.NURSE ---
CHANGED AND REPOSITIONED
== END 2022-01-16 18:00 | disposition short-term general hospital (02) ==
PROVIDERS: Physician Assistant; Emergency Provider Emergency Medicine; PCP Nurse Practitioner Family
DX: L02.01 Cutaneous abscess of face (principal); R50.9 Fever, unspecified; R51.9 Headache, unspecified; R22.0 Localized swelling, mass and lump, head; H92.02 Otalgia, left ear; R11.2 Nausea with vomiting, unspecified; J02.9 Acute pharyngitis, unspecified; Z20.822 Contact with and (suspected) exposure to COVID-19; E11.9 Type 2 diabetes mellitus without complications; G89.29 Other chronic pain; F17.200 Nicotine dependence, unspecified, uncomplicated; Z98.818 Other dental procedure status; Z86.711 Personal history of pulmonary embolism; Z79.891 Long term (current) use of opiate analgesic
CPT/HCPCS: 36415; 70487; 80048; 80076; 83605; 83735; 85025; 85652; 86140; 87040; 87635; 96361; 96365; 96366; 96367; 96375; 96376; 99284; 99291; J0295; J1170; J2270; J2405; J3475; Q9967

== ENCOUNTER 2022-03-01 14:47 | Outpatient (REF) | payer MEDICARE, SELFPAY ==
[2022-03-01 16:22] LABS: Basophils Percent Auto 0.2 % (0-2); Eosinophils Absolute Auto 0.2 X10*3/uL (0.0-0.4); Eosinophils Percent Auto 1.5 % (0-4); Hematocrit 33.1 % (37.0-47.0); Hemoglobin 11.1 g/dl (12.0-16.0); Imm Gran Abs Auto 0.06 X10*3/uL (0.00-0.03); Imm Gran Pct Auto 0.4 % (0.0-0.4); Lymphocytes Absolute Auto 2.1 X10*3/uL (1.2-4.9); Lymphocytes Percent Auto 14.5 % (20-40); MANUAL DIFF FLAG SCAN; Mean Corpuscular HGB Conc 33.5 g/dl (31.0-35.0); Mean Corpuscular Hemoglobin 33.2 pg (27.0-33.0); Mean Corpuscular Volume 99.1 fL (80.0-98.0); Mean Platelet Volume 9.6 fL (9.4-12.3); Monocytes Absolute Auto 2.1 X10*3/uL (0.1-1.2); Monocytes Percent Auto 14.7 % (2-11); Neutrophils Percent Auto 68.7 % (45-73); Platelet Count 346 X10*3/uL (160-400); Red Blood Count 3.34 X10*6/uL (4.20-5.50); Red Cell Distribution Width 13.2 % (11.0-16.0); SCAN SMEAR FLAG 1; White Blood Count 14.6 X10*3/uL (4.8-10.8)
[2022-03-01 16:33] LABS: Anion Gap 17 (12-20); Blood Urea Nitrogen 12 mg/dL (9-16); Calcium 9.4 mg/dL (8.4-10.2); Carbon Dioxide 24 mmol/L (22-29); Chloride 100 mmol/L (96-108); Estimated Glomerular Filt Rate > 60; Glucose Random 102 mg/dL (60-115); Potassium 4.9 mmol/L (3.3-5.1); Sodium 136 mmol/L (135-145)
[2022-03-01 16:41] LABS: SLIDE REVIEW VERIFIED
== END 2022-03-01 14:48 | disposition home or self-care (01) ==
LOC: HO.HMGCLDS 14:47
PROVIDERS: PCP Nurse Practitioner Family; Visit Provider Nurse Practitioner Family
DX: R19.7 Diarrhea, unspecified (principal); I10 Essential (primary) hypertension
CPT/HCPCS: 36415; 80048; 85025

== ENCOUNTER → 2022-07-19 13:02 | Outpatient (BNVA) | payer MEDICARE, SELFPAY | PROVIDERS: PCP Nurse Practitioner Family; Visit Provider Student in an Organized Health Care Education/Training Program | DX: Z13.820 Encounter for screening for osteoporosis (principal); M06.00 Rheumatoid arthritis without rheumatoid factor, unspecified site; F17.210 Nicotine dependence, cigarettes, uncomplicated | CPT/HCPCS: 99212 ==

== ENCOUNTER 2022-08-08 13:17 | Outpatient (REF) | payer MEDICARE, SELFPAY ==
--- NOTE | ~2022-08-08 | MM_ITS ---
EXAMINATION: BONE DENSITOMETRY CLINICAL INDICATION: Encounter for screening for osteoporosis. COMPARISON: Baseline BD dated 05/19/2013, spine and left hip. This is the patient's baseline examination for the left forearm radius 33%. TECHNIQUE: Using a [employer] 3D DXA System (software version: 13.1) manufactured by [employer], dual-energy x-ray absorptiometry was performed of the lumbar spine, left hip, and left forearm radius 33%. The images are of good technical quality. Summary results are attached. FINDINGS: AP SPINE L1-L4: There are multilevel degenerative changes lumbar spine which may cause overestimation of the lumbar bone mineral density. Current: BMD 1.906 g/cm2, Z-score 7.0, T-score 6.0, normal, 2.5% increase from baseline (<5% change is not significant). Baseline: BMD 1.860 g/cm2. LEFT FEMUR, NECK: Current: BMD 1.051 g/cm2, Z-score 1.2, T-score 0.1, normal. Baseline: BMD 1.095 g/cm2. LEFT FEMUR, TOTAL: Current: BMD 1.173 g/cm2, Z-score 2.0, T-score 1.3, normal, 5.6% decrease from baseline (<5% change is not significant). Baseline: BMD 1.243 g/cm2. LEFT FOREARM RADIUS 33%: BMD 0.887 g/cm2, Z-score 1.0, T-score 0.1, normal. Baseline: Not previously measured. IDENTIFIED RISK FACTORS: Rheumatoid arthritis, tobacco use (current smoker), recurrent falls, height loss, family history (parental hip fracture), history of fracture (adult). Early menopause, secondary osteoporosis, anticonvulsants. HISTORY OF FRACTURE: Forearm. MEDICATIONS: Calcium supplements or multivitamin, vitamin D. MM/XR DEXA axial skeleton IMPRESSION: 1. DIAGNOSIS: Normal bone density based on the lowest T-score value of 0.1 in the femoral neck and forearm radius 33% applying World Health Organization criteria. 2. 10-YEAR FRACTURE RISK PREDICTION, FRAX: According to the guidelines, FRAX calculation should only be performed on patients in the osteopenia bone density category. Therefore, FRAX was not performed on this patient. 3. Treatment Recommendations: NOF guidelines recommend consideration for treatment in postmenopausal women and men age 50 and older presenting with the following: -A hip or vertebral (clinical or morphometric) fracture. -T-score less than or equal to -2.5 at the femoral neck or spine after appropriate evaluation to exclude secondary causes. -Low bone mass at the hip or spine and a 10-year fracture probability by FRAX of greater than or equal to 3% for hip fracture or greater than or equal to 20% for major osteoporotic fracture based on the [place] adapted WHO algorithm. 4. Other Recommendations: All treatment decisions require clinical judgment and consideration of individual patient factors, including patient preferences, comorbidities, previous drug use, risk factors not captured in the FRAX model (e.g. frailty, falls, vitamin D deficiency, increased bone turnover, interval significant decline in bone density) and possible under or overestimation of fracture risk by FRAX. FUTURE SCAN RECOMMENDATION: People with diagnosed cases of osteoporosis or at high risk for fracture should have regular bone mineral density tests. For patients eligible for Medicare, routine testing is allowed once every 2 years. The testing frequency can be increased to one year for patients who have rapidly progressing disease, those who are receiving or discontinuing medical therapy to restore bone mass, or have additional risk factors.
--- NOTE | ~2022-08-08 | MM_ITS ---
EXAMINATION: MM SCREENING DIGITAL BREAST TOMOSYNTHESIS, BILATERAL CLINICAL INFORMATION: Screening. Asymptomatic. The lifetime risk of breast cancer based on the Tyrer-Cuzick Model is 6%. COMPARISON: Mammography: 08/17/2020, 08/12/2019, 07/11/2018 TECHNIQUE: Digital breast tomosynthesis is performed in both the craniocaudal and mediolateral oblique views along with computer-aided detection (CAD). Synthesized 2D images are generated from the tomosynthesis. FINDINGS: There are scattered areas of fibroglandular density (ACR BI-RADS breast composition Category b). There are no significant masses, abnormal calcifications, or other abnormalities. Parenchymal pattern is similar to prior studies. There is no developing density or architectural abnormality. The axilla and skin contours are unremarkable. No significant changes. MM/MM tomosynthesis screening BI IMPRESSION: No mammographic evidence of malignancy. ASSESSMENT: BI-RADS 1: Negative RECOMMENDATION: Routine annual mammography screening. This patient's information was entered into a reminder system with a target due date for their next mammogram.
== END 2022-08-08 13:18 | disposition home or self-care (01) ==
LOC: HO.MAMMO 13:17
PROVIDERS: Absent Provider Nurse Practitioner Family; PCP Nurse Practitioner Family; Visit Provider Student in an Organized Health Care Education/Training Program
DX: Z12.31 Encounter for screening mammogram for malignant neoplasm of breast (principal); Z13.820 Encounter for screening for osteoporosis; Z78.0 Asymptomatic menopausal state; Z79.899 Other long term (current) drug therapy
CPT/HCPCS: 77063; 77067; 77080

== ENCOUNTER 2022-08-10 13:42 | Outpatient (REF) | payer MEDICARE, SELFPAY ==
[2022-08-10 16:36] LABS: MANUAL DIFF FLAG NO
[2022-08-10 16:41] LABS: Basophils Percent Auto 0.7 % (0-2); Eosinophils Absolute Auto 0.2 X10*3/uL (0.0-0.4); Eosinophils Percent Auto 2.6 % (0-4); Hematocrit 36.6 % (37.0-47.0); Hemoglobin 12.6 g/dl (12.0-16.0); Imm Gran Abs Auto 0.02 X10*3/uL (0.00-0.03); Imm Gran Pct Auto 0.3 % (0.0-0.4); Lymphocytes Absolute Auto 1.4 X10*3/uL (1.2-4.9); Mean Corpuscular HGB Conc 34.4 g/dl (31.0-35.0); Mean Corpuscular Hemoglobin 33.8 pg (27.0-33.0); Mean Corpuscular Volume 98.1 fL (80.0-98.0); Mean Platelet Volume 9.8 fL (9.4-12.3); Monocytes Absolute Auto 0.7 X10*3/uL (0.1-1.2); Monocytes Percent Auto 11.1 % (2-11); Neutrophils Absolute Auto 3.6 x10*3/uL (2.0-8.3); Neutrophils Percent Auto 61.3 % (45-73); Platelet Count 278 X10*3/uL (160-400); Red Blood Count 3.73 X10*6/uL (4.20-5.50); Red Cell Distribution Width 14.3 % (11.0-16.0); White Blood Count 5.8 X10*3/uL (4.8-10.8)
[2022-08-10 16:48] LABS: Estimated Average Glucose 85 mg/dL; Hemoglobin A1c % 4.6 %; INTERNATIONAL NORM RATIO 0.9 (0.9-1.1)
[2022-08-10 16:52] LABS: Alanine Aminotransferase 8 U/L (0-31); Albumin Level 4.2 g/dL (3.5-5.0); Alkaline Phosphatase 71 U/L (39-117); Anion Gap 18 (12-20); Aspartate Amino Transferase 19 U/L (5-31); Bilirubin Total 0.3 mg/dL (0.0-1.0); Blood Urea Nitrogen 14 mg/dL (9-16); Calcium 9.6 mg/dL (8.4-10.2); Carbon Dioxide 22 mmol/L (22-29); Chloride 104 mmol/L (96-108); Estimated Glomerular Filt Rate > 60; Glucose Random 123 mg/dL (60-115); Sodium 140 mmol/L (135-145); Total Protein 6.8 g/dL (6.5-8.0)
== END 2022-08-10 13:43 | disposition home or self-care (01) ==
LOC: HO.HMGCLDS 13:42
PROVIDERS: Absent Provider Nurse Practitioner Family; PCP Nurse Practitioner Family; Visit Provider Student in an Organized Health Care Education/Training Program
DX: Z01.818 Encounter for other preprocedural examination (principal); E11.610 Type 2 diabetes mellitus with diabetic neuropathic arthropathy
CPT/HCPCS: 36415; 80053; 83036; 85025; 85610

== ENCOUNTER 2022-08-29 13:00 | Outpatient (RCR) | payer MEDICARE, SELFPAY | END 2022-09-06 14:25 | disposition home or self-care (01) | LOC: HO.PTCHIC 13:00 | PROVIDERS: PCP Nurse Practitioner Family; Visit Provider Orthopaedic Surgery | DX: M17.11 Unilateral primary osteoarthritis, right knee (principal) | CPT/HCPCS: 97110; 97162 ==

== ENCOUNTER 2022-09-03 13:00 | Outpatient (REF) | payer MEDICARE, SELFPAY ==
--- NOTE | ~2022-09-03 | US_ITS ---
EXAMINATION: ANKLE-BRACHIAL INDICES. CLINICAL INFORMATION: This is a 61-year-old female with peripheral vascular disease, unspecified. COMPARISON: None. TECHNIQUE: Ankle-brachial indices were obtained. The study was performed pre-exercise. FINDINGS: RIGHT SIDE: The right ankle-brachial index is 1.01 rest. The segmental pressures demonstrate no evidence of peripheral arterial disease. LEFT SIDE: The left ankle-brachial index is 1.09 at rest. The segmental pressures demonstrate no evidence of significant peripheral arterial disease. US/US BRITTANY complete IMPRESSION: 1. Normal ankle-brachial index peripheral arterial testing. INTERPRETATION CRITERIA FOR PERIPHERAL ARTERIAL DISEASE: > 0.97-1.25 = normal - no significant peripheral arterial disease. (0.95 - 0.91 may be abnormal-consider PVRs and Doppler waveforms). 0.75 - 0.96 = MILD peripheral arterial disease. 0.50 -0.74 = MODERATE peripheral arterial disease. < 0.50 = SEVERE peripheral arterial disease. < 0.30 = CRITICAL peripheral arterial disease.
== END 2022-09-03 13:01 | disposition home or self-care (01) ==
LOC: HO.US 13:00
PROVIDERS: Visit Provider Student in an Organized Health Care Education/Training Program
DX: I73.9 Peripheral vascular disease, unspecified (principal)
CPT/HCPCS: 93923

== ENCOUNTER → 2022-10-04 10:24 | Outpatient (BNVA) | payer MEDICARE, SELFPAY | PROVIDERS: PCP Nurse Practitioner Family; Visit Provider Student in an Organized Health Care Education/Training Program | DX: M06.00 Rheumatoid arthritis without rheumatoid factor, unspecified site (principal); M75.101 Unspecified rotator cuff tear or rupture of right shoulder, not specified as traumatic; M75.102 Unspecified rotator cuff tear or rupture of left shoulder, not specified as traumatic; Z79.899 Other long term (current) drug therapy | CPT/HCPCS: 99212 ==

== ENCOUNTER 2022-11-28 15:13 | Outpatient (REF) | payer MEDICARE, SELFPAY ==
[2022-11-28 16:51] LABS: Appearance Urine Clear; Color Urine Yellow; Glucose Urine UA Negative (Negative); Leukocyte Esterase Urine Trace (Negative); Nitrite Urine Negative (Negative); PH 6.5 (5.0-9.0); UMIC TRIGGER UACC YES; Urine Blood Negative (Negative); Urine Ketones Negative (Negative); Urine Protein Negative (Neg-Trace)
[2022-11-28 17:16] LABS: Creatinine Urine 81.61 mg/dL; Microalbum/Creatinine Ratio Ur 14.7 ug/mg cr; Protein/Creatinine Ratio, Ur 0.12 (<0.2); Total Protein Urine Random 10 mg/dL (<12)
[2022-11-28 17:28] LABS: Alanine Aminotransferase 9 U/L (0-31); Albumin Level 3.8 g/dL (3.5-5.0); Alkaline Phosphatase 78 U/L (39-117); Anion Gap 15 (12-20); Aspartate Amino Transferase 20 U/L (5-31); Bilirubin Total 0.3 mg/dL (0.0-1.0); Blood Urea Nitrogen 19 mg/dL (9-16); Calcium 8.9 mg/dL (8.4-10.2); Carbon Dioxide 27 mmol/L (22-29); Chloride 103 mmol/L (96-108); Estimated Glomerular Filt Rate > 60; Glucose Random 95 mg/dL (60-115); Sodium 140 mmol/L (135-145); Total Protein 6.3 g/dL (6.5-8.0)
[2022-11-28 17:28] LABS: Bacteria Urine None Seen (None Seen); Hyaline Casts Urine 0-2 /LPF (0-2); RBC Urine 0-2 /HPF (0-2); Squamous Epithelial Cell Urine 0-2 /HPF (0-2); WBC Urine 0-5 /HPF (0-5)
[2022-11-28 17:42] LABS: Thyroid Stimulating Hormone 1.66 uIU/mL (0.32-4.0)
== END 2022-11-28 15:14 | disposition home or self-care (01) ==
LOC: HO.HMGCLDS 15:13
PROVIDERS: PCP Nurse Practitioner Family; Visit Provider Nurse Practitioner Family
DX: R39.15 Urgency of urination (principal); R31.9 Hematuria, unspecified; F11.90 Opioid use, unspecified, uncomplicated; E11.9 Type 2 diabetes mellitus without complications; E03.9 Hypothyroidism, unspecified
CPT/HCPCS: 36415; 80053; 81001; 82043; 84156; 84443

== ENCOUNTER 2022-11-29 15:00 | Outpatient (RCR) | payer MEDICARE, SELFPAY | END 2022-12-07 10:55 | disposition home or self-care (01) | LOC: HO.PTCHIC 15:00 | PROVIDERS: PCP Nurse Practitioner Family; Visit Provider Orthopaedic Surgery | DX: Z96.651 Presence of right artificial knee joint (principal) | CPT/HCPCS: 97110; 97112; 97116; 97140; 97161 ==

== ENCOUNTER 2022-12-01 15:47 | Inpatient (IN) | payer MEDICARE, SELFPAY ==
--- NOTE | 2022-12-01 | ECG_ITS ---
Test Reason : tachycardia Blood Pressure : / mmHG Vent. Rate : 146 BPM Atrial Rate : 146 BPM P-R Int : 128 ms QRS Dur : 086 ms QT Int : 302 ms P-R-T Axes : 000 061 011 degrees QTc Int : 470 ms Artifact in tracing Sinus tachycardia Otherwise normal ECG When compared to the previous EKG of Sinus tachycardia present Referred By: Mahogany De La O Electronically Signed By:Erich Correa
--- NOTE | ~2022-12-01 | US_ITS ---
EXAMINATION: US VENOUS ULTRASOUND WITH DOPPLER LOWER EXTREMITY, BILATERAL CLINICAL INFORMATION: Bilateral lower extremity edema, pain and redness COMPARISON: None TECHNIQUE: Ultrasound of the deep veins is performed from the hip to the calf with compression sonography and color and pulse Doppler assessment. Spectral analysis with color-flow imaging is performed. FINDINGS: RIGHT: There is normal venous compression and respiratory variation and augmented flow. The visualized common femoral vein, superficial femoral vein, profunda femoral vein, popliteal vein, and the trifurcation region shows no evidence of deep venous thrombosis. Peroneal veins could not be seen. There is an area of shadowing in the right popliteal fossa of uncertain significance. This hypoechoic area measures 2.5 x 2.2 cm. Prominent right thigh lymph node seen. Subcutaneous edema is present. LEFT: There is normal venous compression and respiratory variation and augmented flow. The visualized common femoral vein, superficial femoral vein, profunda femoral vein, popliteal vein, and the trifurcation region shows no evidence of deep venous thrombosis. Peroneal veins could not be seen There is no significant popliteal fossa cyst. Prominent left thigh lymph nodes are seen. Subcutaneous edema present. If the patient's symptoms persist, followup ultrasound in 5 days 7 days might be of value to exclude proximal propagation from a non-visualized calf vein. US/US venous duplex LE BI IMPRESSION: No DVT demonstrated in either lower extremity. Complex shadowing area in the right popliteal fossa could represent a complex Washburn's cyst although based upon the imaging, I cannot be certain of this.
--- NOTE | ~2022-12-01 | CT_ITS ---
EXAMINATION: CT ABDOMEN AND PELVIS WITHOUT CONTRAST CLINICAL INFORMATION: Lactic acidosis, sepsis COMPARISON: 07/10/2020 TECHNIQUE: Multidetector volumetric imaging was performed from the superior aspect of the liver through the pubic symphysis. Sagittal and coronal reformatted images were obtained on the technologist's workstation. This CT examination was performed using dose optimization techniques as appropriate, variously including the following: *Automated exposure control *Adjustment of mA and/or kV according to patient size (this includes techniques or standardized protocols for targeted exams where dose is matched to indication/reason for exam; i.e. extremities or head) *Use of iterative reconstruction technique DLP: 987 mGy-cm FINDINGS: Suboptimal assessment in some regions due to motion artifact. LUNG BASES: Nonspecific subpleural reticulation noted. LIVER, GALLBLADDER, AND BILIARY TREE: The liver is normal in size, shape, and attenuation. Redemonstrated small left hepatic hypodensities favoring cysts. No biliary ductal dilatation is present. Gallbladder appears physiologically distended and grossly unremarkable. PANCREAS: Grossly unremarkable. SPLEEN: Grossly unremarkable. ADRENAL GLANDS: Unremarkable. KIDNEYS AND URETERS: No hydronephrosis or obstructing calculus is seen bilaterally. Redemonstrated exophytic left renal cyst; no follow-up recommended. BLADDER: Distended without appreciable wall thickening. GASTROINTESTINAL TRACT: No evidence of bowel obstruction. Assessment for wall thickening in some segments of the colon is limited due to luminal collapse. Colonic diverticulosis is noted. Appendix is suspected to be collapsed. No free fluid or free air is seen. ABDOMINAL WALL: Focus of subcutaneous gas in the right anterior abdominal wall may reflect sequelae of recent injection. LYMPH NODES: A few borderline enlarged retroperitoneal lymph nodes are suspected, though this is suboptimally assessed in the absence of intravenous contrast. VASCULAR: Scattered atherosclerotic calcifications. PELVIC VISCERA: IUD is present in the uterus. OSSEOUS STRUCTURES: Degenerative changes are noted in the spine. CT/CT abdomen pelvis wo IV con IMPRESSION: Suboptimal assessment in some regions due to motion artifact. No definite acute findings identified in the abdomen/pelvis. A few nonspecific borderline enlarged retroperitoneal lymph nodes are suspected, of uncertain clinical significance.
--- NOTE | ~2022-12-01 | US_ITS ---
EXAMINATION: ULTRASOUND EXTREMITY NONVASCULAR CLINICAL INFORMATION: Right thighmass COMPARISON: None TECHNIQUE: Grayscale and color imaging of the soft tissues of the upper medial right thigh using a linear transducer FINDINGS: There is diffuse edema of the subcutaneous fat. No focal mass or fluid collection is seen. US/US extremity nonvascular paredes IMPRESSION: Subcutaneous fat edema.
--- NOTE | ~2022-12-01 | CT_ITS ---
EXAMINATION: CT LOWER LEG RIGHT WITH IV CONTRAST CLINICAL INFORMATION: Cellulitis. Concern for necrotizing fasciitis. COMPARISON: Radiographs of right knee from 12/01/2022. TECHNIQUE: Multidetector CT imaging examination of the right lower extremity performed with intravenous administration of 85 mL Omnipaque 350. No contrast reaction reported. Axial images and multiplanar reformatted images are reviewed. This CT examination was performed using dose optimization techniques as appropriate, variously including the following: *Automated exposure control. *Adjustment of mA and/or kV according to patient size (this includes techniques or standardized protocols for targeted exams where dose is matched to indication/reason for exam, i.e., extremities or head). *Use of iterative reconstruction technique. DLP: 282 mGy-cm FINDINGS: The constrained femoral and tibial components of the total knee arthroplasty are well-positioned. No fracture or osteolysis around the hardware. [id number] knee joint effusion is present. Diffuse edema of skin and subcutaneous tissues of the leg, ankle and visualized proximal foot without focal organized fluid collection or soft tissue gas. No evidence of inflammation along the deep intermuscular tissue planes. No intramuscular fluid collections. Chronic atrophy and partial fatty replacement of muscles. No imaging findings of myonecrosis, soft tissue hematoma or mass. These postcontrast images show no evidence of superficial or deep vein thrombosis. The Achilles tendon is unremarkable. Bones of the ankle and visualized proximal foot are osteopenic. Enthesophytes at posterior and plantar surfaces of the calcaneus. The central cord of plantar aponeurosis is thickened from chronic plantar fasciopathy. Os trigonum is noted. Osteophytes and subchondral cysts are noted at the degenerated navicular-cuneiform joints. No ankle joint effusion. No erosions or periostitis. No evidence of osteomyelitis. CT/CT lower leg RT w IV con IMPRESSION: * CT imaging findings suggest presence of severe cellulitis. However, there is no soft tissue gas or inflammatory change in the deep tissues. No fluid within the intermuscular tissue planes. There is no overt evidence of necrotizing fasciitis. * Also, no evidence of myonecrosis or abscess. * No evidence of loosening of components of the total knee arthroplasty. [id number] knee joint effusion is noted.
--- NOTE | ~2022-12-01 | XR_ITS ---
EXAMINATION: XR KNEE, RIGHT CLINICAL INFORMATION: Pain, trauma COMPARISON: No films available to me that at this time to compare TECHNIQUE: Four views of the right knee. FINDINGS: Prosthesis. Possible joint effusion. No acute fracture or dislocation is seen here. Dystrophic calcification is felt to be present. No evidence for hardware failure. XR/XR knee RT 4V IMPRESSION: Possible effusion present. No acute bony finding.
--- NOTE | ~2022-12-01 | US_ITS ---
EXAMINATION: NONINVASIVE ASSESSMENT OF THE ARTERIES OF BOTH LOWER EXTREMITIES Christian Arriaga MD CLINICAL INFORMATION: Lower extremity pain with no palpable pulses TECHNIQUE: Bilateral lower extremity duplex ultrasound was performed with velocity measurements and waveform analysis in the common femoral arteries, profunda femoris arteries, proximal mid and distal superficial femoral arteries, popliteal arteries and tibial vessels. This study was performed only at rest. COMPARISON: None FINDINGS: Velocities in cm/sec and phasicity as well as the presence of plaque are reported below. RIGHT LEG: Atherosclerotic changes are present with plaque. Multiphasic flow is seen throughout the lower extremity. There are some areas of velocity acceleration in the SFA probably corresponding to some mild stenoses. Common Femoral: 136 Profunda Femoris: 79 Proximal SFA: 136 Mid SFA: 221 Distal SFA: 218 Popliteal: 106 Tibial: 46 LEFT LEG: Atherosclerotic changes are present with plaque. Multiphasic flow is seen throughout the lower extremity. There are some areas of velocity acceleration in the SFA probably corresponding to some mild stenoses. Common Femoral: 140 Profunda Femoris: 107 Proximal SFA: 136 Mid SFA: 204 Distal SFA: 171 Popliteal: 129 Tibial: 91 US/US arterial duplex LE BI IMPRESSION: There is no evidence of any hemodynamically significant lower extremity arterial disease by duplex Doppler criteria at rest. Some mild peripheral vascular disease is present with probable SFA stenoses.
--- NOTE | ~2022-12-01 | XR_ITS ---
EXAMINATION: XR CHEST CLINICAL INFORMATION: Line placement COMPARISON: 09/13/2021 TECHNIQUE: Frontal view of the chest was obtained. FINDINGS: Left IJ central line tip lies in the region of the upper SVC. Lung volumes are symmetric. No focal consolidation is seen. No evidence of pneumothorax, pleural effusion, or pulmonary edema. The cardiomediastinal contour is unremarkable. No acute osseous findings are seen. XR/XR chest 1V IMPRESSION: Left IJ central line tip in the region of the upper SVC.
[2022-12-01 16:06] VITALS: BP 114/68; PULSE 104; RESP 18; TEMP 36.3; O2SAT 96; BMI 30.7
--- NOTE | 2022-12-01 16:08 | ED_ITS ---
HPI - Extremity Problem General Chief complaint: Extremity Injury, Lower Stated complaint: swelling/redness x 4days per EMS Time Seen by Provider: 12/01/22 16:07 Source: patient, EMS and old records reviewed Mode of arrival: EMS Limitations: no limitations History of Present Illness HPI Narrative: 62 yo female with history of rheumatoid arthritis on Plaquenil since June 2019, chronic bronchitis, PVD, pulmonary embolism in 2019 (no longer on anticoagulation), history of a right knee replacement in August 2022 who presents to the ER from home via EMS c/o bilateral leg pain, redness and swelling. She reports on 11/28 she was scratching her LLE that resulted in multiple abrasions and excoriations on her leg. They developed into flat blisters and then became fluid filled. She then developed a sore throat and a headache the next day. She noticed redness of her left lower leg and warmth. She has had chills and generally not feeling well. Last night she says she was up multiple times in the night trying to get up and use the bathroom. She was off balance, weak and kept banging her legs into the furniture when trying to walk. She felt confused. Today she developed acute onset of right leg redness, swelling and warmth along with severe pain. She developed nausea and dry heaving as well. Her legs hurt so bad she couldn't walk. She called 911 to come to the ER. She denied any chest pain, SOB, difficulty breathing. She c/o a painful, burning rash c/w yeast infection in her inguinal folds. Complaint: joint swelling and joint pain Onset (ago): day(s) Pain Consistency: constant Location: left, right and lower extremity Severity scale (1-10): 10 Quality: burning, stabbing and aching Radiation: proximal Relieving factors: immobilization and elevation Exacerbating factors: range of motion, weight bearing, walking and palpation Associated symptoms: myalgias, arthralgias, rash (chills, nausea, headahce) and other Context: recent surgery/procedure (Aug 2022), history of peripheral vascular disease and recent illness Related Data Home Medications Medication Instructions Recorded Confirmed amlodipine 2.5 mg tablet 1 tab PO DAILY 08/12/20 07/19/22 baclofen 10 mg tablet 1 tab PO TID 08/12/20 07/19/22 blood sugar diagnostic (FreeStyle 08/12/20 07/19/22 Lite Strips) bupropion HCl 300 mg 24 hr tablet, 1 tab PO DAILY 08/12/20 07/19/22 extended release diclofenac sodium 1 % topical gel 4 g topical TID PRN Pain 08/12/20 07/19/22 docusate sodium 100 mg capsule 1 cap PO BID 08/12/20 07/19/22 (DOK) furosemide 20 mg tablet 1 tab PO BID PRN Systemic Signs 08/12/20 07/19/22 And Symptoms hydroxyzine HCl 25 mg tablet 1 tab PO TID PRN Itching 08/12/20 07/19/22 levothyroxine 88 mcg tablet 1 tab PO QAM 08/12/20 07/19/22 (Euthyrox) metformin 850 mg tablet 1 tab PO BID 08/12/20 07/19/22 omeprazole 20 mg capsule,delayed 1 cap PO DAILY 08/12/20 07/19/22 release oxybutynin chloride 10 mg 1 tab PO DAILY 08/12/20 07/19/22 tablet,extended release 24 hr oxycodone 20 mg tablet,crush 1 tab PO Q12H 08/12/20 07/19/22 resistant,extended release 12 hr (OxyContin) simvastatin 20 mg tablet 1 tab PO BEDTIME 08/12/20 07/19/22 venlafaxine 150 mg 1 cap PO DAILY 08/12/20 07/19/22 capsule,extended release 24 hr nystatin 100,000 unit/gram topical topical BID PRN 03/06/21 07/19/22 cream albuterol sulfate 90 mcg/actuation 0 mcg inhalation 11/08/21 07/19/22 aerosol inhaler clotrimazole-betamethasone 1 appl topical BID 11/08/21 07/19/22 %-0.05 % topical cream oxycodone 10 mg tablet 10 mg PO Q4H PRN 07/19/22 07/19/22 pregabalin 75 mg capsule 75 mg PO BID 10/04/22 Previous Rx's Medication Instructions Recorded hydroxychloroquine 200 mg tablet 200 mg PO BID #60 tabs 08/29/22 Allergies Allergy/AdvReac Type Severity Reaction Status Date / Time lisinopril Allergy Intermediate Swelling Verified 10/04/22 10:39 clavulanic acid Allergy Mild RASH Verified 10/04/22 10:39 [From Augmentin] aripiprazole [From ABILIFY] AdvReac Intermediate EDEMA Verified 10/04/22 10:39 duloxetine [From CYMBALTA] AdvReac Intermediate WT Verified 10/04/22 10:39 GAIN/EDEMA ibuprofen AdvReac Unknown kidney Verified 10/04/22 10:39 function Review of Systems Review of Systems: Yes all other systems are reviewed and are negative [facility] Past Medical History Medical History Alcohol abuse Carpal tunnel syndrome Chronic bronchitis Diabetes Neuropathy Osteoarthritis Osteomyelitis Pilonidal cyst Pleurisy Pulmonary embolism Rheumatoid arthritis Seronegative rheumatoid arthritis Smoker Surgical History H/O hernia repair History of left knee replacement (~2016) History of surgery on arm History of total right knee replacement (TKR) Previous back surgery (~2015) Family History Family History Mother CHF (congestive heart failure) Stroke Uterine cancer Father CHF (congestive heart failure) Sister Diabetes Brother Diabetes Pulmonary embolism Social History Social History Are you a primary animal caretaker supervisor to a significant other at home: No Alcohol intake: current Alcohol intake frequency: a few times a week Alcohol type: hard liquor Patient Tobacco Use Status: Current everyday Tobacco user Tobacco use type: Cigarette Cigarette Packs Per Day: 1 Cigarettes Per Day: 20 Years Smoked: 40 Advance Directives: No Advance Directives Information Provided: No Physical Exam Vital Signs: Vital Signs: Last Vital Signs Temp 97.6 F 12/01/22 18:18 Pulse 97 12/01/22 18:18 Resp 18 12/01/22 18:18 BP 128/72 12/01/22 18:18 Pulse Ox 96 12/01/22 18:18 O2 Del Method 12/01/22 18:18 BMI result Body Mass Index 30.7 Appearance: Alert. Oriented X3. Appears uncomfortable. Eyes: Pupils equal, round and reactive to light. ENT: Pharynx normal. Neck: Normal inspection. Neck supple. CVS: Normal heart rate and rhythm. Pulses normal. Respiratory: No respiratory distress. Breath sounds normal. Abdomen: Soft and nontender. +BS x4 Skin: Skin warm and dry. Normal skin color. Normal skin turgor. Inguinal folds with beefy red tender rash, R>L. Extremities: RLE with well healed surgical scar c/w previous knee replacement, anterior right leg with erythema, warmth and tenderness of the right knee and lower leg. bilateral feet are cold without palpable pulses, Neuro: Oriented X 3. No motor deficit. No sensory deficit. Course Course Course Narrative: 62-year-old female with history of rheumatoid arthritis, PVD, COPD, smoker, ETOH abuse, PE in 2019 now off anticoagulation, status post bilateral knee replacements, most recently in August of 2022 who presents to the ER for evaluation of significant lower extremity pain, redness, swelling and warmth. Symptoms initially started on the left leg after scratching the area. New onset right-sided pain, redness and swelling after hitting the leg against furniture last night. Exam c/w cellulitis at minimum. However concerned about no palpable pulses in the feet - she states her feet are always cold. They do not hurt. They are not red. Will get LE dopplers and arterial studies. Septic workup ordered along with IVF and Rocephin for now. Doubt MRSA but may need to add Vanco depending on lab results and high clinical suspicion. will review records. Reevaluation(s) Reevaluation #1: In august patient had US/US BRITTANY complete 1. Normal ankle-brachial index peripheral arterial testing. Lactic acid 2.5. IVF and abx ordered Reevaluation #2: Call from lab for critical results - bandemia 43%, glucose 56 - patient AAO x3, drinking OJ. CRP 40. BNP 544. Mag 1.3+ , ETOH level added. vancomycin added. Repeat dopplers revealed pulses in the bilateral feet. Will plan for admission for treatment of sepsis 2/2 LE cellulitis. patient and sig other updated on plan of care Medications Administered Generic Name Dose Route Start Last Admin Trade Name Freq PRN Reason Stop Dose Admin Magnesium Sulfate 2 gm in 50 mls @ 25 mls/hr 12/01/22 17:51 12/01/22 18:14 Magnesium Sulfate/H2o IV 12/01/22 19:50 25 mls/hr ONCE ONE Administration Discontinued Medications Generic Name Dose Route Start Last Admin Trade Name Freq PRN Reason Stop Dose Admin Fentanyl 25 mcg 12/01/22 17:50 12/01/22 18:00 Fentanyl Citrate/Pf 100 Mcg/2 Ml Vial IVPUSH 12/01/22 17:51 25 mcg ONCE ONE Administration Protocol Fluconazole 150 mg 12/01/22 16:19 12/01/22 16:56 Fluconazole 150 Mg Tablet PO 12/01/22 16:20 150 mg ONCE ONE Administration Sodium Chloride 1,000 mls @ 999 mls/hr 12/01/22 16:30 12/01/22 18:18 Ns IVCONT 12/01/22 17:30 Infused .Q1H1M EVIN Infusion Ceftriaxone Sodium 1 gm/ 50 mls @ 100 mls/hr 12/01/22 16:19 12/01/22 18:01 Sodium Chloride IV 12/01/22 16:48 100 mls/hr ONCE ONE Administration Morphine Sulfate 4 mg 12/01/22 16:19 12/01/22 16:55 Morphine Sulfate 4 Mg/Ml Cartridge IVPUSH 12/01/22 16:20 4 mg ONCE ONE Administration Protocol Nystatin 1 appl 12/01/22 16:19 12/01/22 18:14 Nystatin Ointment 15 Gm Tube TOPICAL 12/01/22 16:20 1 appl ONCE ONE Administration Protocol Ondansetron HCl 4 mg 12/01/22 16:19 12/01/22 16:55 Ondansetron Hcl 4 Mg/2 Ml Vial IVPUSH 12/01/22 16:20 4 mg ONCE ONE Administration Medical Decision Making Differential Diagnosis Differential Diagnoses: The differential diagnosis associated with the presentation includes cellulitis, DVT, erysipelas, bullous pemphigoid, CHF, PVD, P 80, sepsis, metabolic derangement, anemia, traumatic injury, rhabdomyolysis Admission/Observation Consideration of admission/observation: Escalation of care including admission/observation considered admitted - d/w Dr. Constantino Consult Healthcare Provider Management of the patient was discussed with: Hospitalist Lab Data MDM Lab Attestation statement: I reviewed the patient's lab results. significant bandemia, mild hyponatremia, hypoglycemia, mildly elevated lactic acid, hypo magnesemia, elevated BNP, unknown CHF history 12/01/22 16:33 12/01/22 16:32 Labs: Lab Results 12/01/22 12/01/22 12/01/22 Range/Units 16:32 16:32 16:32 WBC (4.8-10.8) X10*3/uL RBC (4.20-5.50) X10*6/uL Hgb (12.0-16.0) g/dl Hct (37.0-47.0) % MCV (80.0-98.0) fL MCH (27.0-33.0) pg MCHC (31.0-35.0) g/dl RDW (11.0-16.0) % Plt Count (160-400) X10*3/uL MPV (9.4-12.3) fL Immature Gran % (Auto) Neut % (Auto) Lymph % (Auto) [place] % (Auto) Eos % (Auto) Baso % (Auto) Lymph # (Auto) [place] # (Auto) Eos # (Auto) Baso # (Auto) Abs Immat Gran (auto) Absolute Neuts (auto) Absolute Nucleated RBC (0.0-0.012) X10*3/uL Nucleated RBC % (auto) (0.0-0.2) /100WBC Neutrophils % (Manual) (45-73) % Band Neutrophils % (3-5) % Lymphocytes % (Manual) (20-40) % Monocytes % (Manual) (2-11) % Metamyelocytes % % Myelocytes % % Abs Neuts (Manual) (2.0-8.3) X10*3/uL Lymphocytes # (Manual) (1.2-4.9) X10*3/uL Monocytes # (Manual) (0.1-1.2) X10*3/uL Metamyelocytes # X10*3/uL Myelocytes # X10*/uL Toxic Vacuolation Platelet Estimate (NORMAL) Plt Morphology Comment RBC Morphology Polychromasia /OIF ESR 34 H (0-20) MM/HR PT 13.3 H (10.0-13.1) SEC INR 1.2 H (0.9-1.1) APTT 36.9 H (26.0-36.4) SEC Sodium (135-145) mmol/L Potassium (3.3-5.1) mmol/L Chloride (96-108) mmol/L Carbon Dioxide (22-29) mmol/L Anion Gap (12-20) BUN (9-16) mg/dL Creatinine (0.5-1.4) mg/dL Estim Creat Clear Calc Estimated GFR Random Glucose (60-115) mg/dL Lactic Acid 2.5 H* (0.5-2.0) mmol/L Calcium (8.4-10.2) mg/dL Magnesium (1.6-2.6) mg/dL Total Bilirubin (0.0-1.0) mg/dL Direct Bilirubin (0.0-0.5) mg/dL AST (5-31) U/L ALT (0-31) U/L Alkaline Phosphatase (39-117) U/L Total Creatine Kinase (26-140) U/L C-Reactive Protein (< or = 0.50) mg/dL B-Natriuretic Peptide (<100) pg/mL Total Protein (6.5-8.0) g/dL Albumin (3.5-5.0) g/dL COVID-19 ([facility]) (Negative) COVID-19 Clin Com 12/01/22 12/01/22 12/01/22 Range/Units 16:32 16:33 16:33 WBC 7.0 (4.8-10.8) X10*3/uL RBC 4.00 L (4.20-5.50) X10*6/uL Hgb 12.8 (12.0-16.0) g/dl Hct 37.3 (37.0-47.0) % MCV 93.3 (80.0-98.0) fL MCH 32.0 (27.0-33.0) pg MCHC 34.3 (31.0-35.0) g/dl RDW 15.1 (11.0-16.0) % Plt Count 199 D (160-400) X10*3/uL MPV 9.4 (9.4-12.3) fL Immature Gran % (Auto) Cancelled Neut % (Auto) Cancelled Lymph % (Auto) Cancelled [place] % (Auto) Cancelled Eos % (Auto) Cancelled Baso % (Auto) Cancelled Lymph # (Auto) Cancelled [place] # (Auto) Cancelled Eos # (Auto) Cancelled Baso # (Auto) Cancelled Abs Immat Gran (auto) Cancelled Absolute Neuts (auto) Cancelled Absolute Nucleated RBC 0.000 (0.0-0.012) X10*3/uL Nucleated RBC % (auto) 0.0 (0.0-0.2) /100WBC Neutrophils % (Manual) 30 L (45-73) % Band Neutrophils % 43 H (3-5) % Lymphocytes % (Manual) 3 L (20-40) % Monocytes % (Manual) 3 (2-11) % Metamyelocytes % 13 % Myelocytes % 8 % Abs Neuts (Manual) 5.1 (2.0-8.3) X10*3/uL Lymphocytes # (Manual) 0.2 L (1.2-4.9) X10*3/uL Monocytes # (Manual) 0.2 (0.1-1.2) X10*3/uL Metamyelocytes # 0.9 X10*3/uL Myelocytes # 0.6 X10*/uL Toxic Vacuolation PRESENT Platelet Estimate NORMAL (NORMAL) Plt Morphology Comment NORMAL RBC Morphology NOTED Polychromasia 1+ (0-2) /OIF ESR (0-20) MM/HR PT (10.0-13.1) SEC INR (0.9-1.1) APTT (26.0-36.4) SEC Sodium (135-145) mmol/L Potassium (3.3-5.1) mmol/L Chloride (96-108) mmol/L Carbon Dioxide (22-29) mmol/L Anion Gap (12-20) BUN (9-16) mg/dL Creatinine (0.5-1.4) mg/dL Estim Creat Clear Calc Estimated GFR Random Glucose (60-115) mg/dL Lactic Acid (0.5-2.0) mmol/L Calcium (8.4-10.2) mg/dL Magnesium (1.6-2.6) mg/dL Total Bilirubin (0.0-1.0) mg/dL Direct Bilirubin (0.0-0.5) mg/dL AST (5-31) U/L ALT (0-31) U/L Alkaline Phosphatase (39-117) U/L Total Creatine Kinase (26-140) U/L C-Reactive Protein (< or = 0.50) mg/dL B-Natriuretic Peptide 544 H (<100) pg/mL Total Protein (6.5-8.0) g/dL Albumin (3.5-5.0) g/dL COVID-19 ([facility]) Negative (Negative) COVID-19 Clin Com See Note 12/01/22 Range/Units 17:10 WBC (4.8-10.8) X10*3/uL RBC (4.20-5.50) X10*6/uL Hgb (12.0-16.0) g/dl Hct (37.0-47.0) % MCV (80.0-98.0) fL MCH (27.0-33.0) pg MCHC (31.0-35.0) g/dl RDW (11.0-16.0) % Plt Count (160-400) X10*3/uL MPV (9.4-12.3) fL Immature Gran % (Auto) Neut % (Auto) Lymph % (Auto) [place] % (Auto) Eos % (Auto) Baso % (Auto) Lymph # (Auto) [place] # (Auto) Eos # (Auto) Baso # (Auto) Abs Immat Gran (auto) Absolute Neuts (auto) Absolute Nucleated RBC (0.0-0.012) X10*3/uL Nucleated RBC % (auto) (0.0-0.2) /100WBC Neutrophils % (Manual) (45-73) % Band Neutrophils % (3-5) % Lymphocytes % (Manual) (20-40) % Monocytes % (Manual) (2-11) % Metamyelocytes % % Myelocytes % % Abs Neuts (Manual) (2.0-8.3) X10*3/uL Lymphocytes # (Manual) (1.2-4.9) X10*3/uL Monocytes # (Manual) (0.1-1.2) X10*3/uL Metamyelocytes # X10*3/uL Myelocytes # X10*/uL Toxic Vacuolation Platelet Estimate (NORMAL) Plt Morphology Comment RBC Morphology Polychromasia /OIF ESR (0-20) MM/HR PT (10.0-13.1) SEC INR (0.9-1.1) APTT (26.0-36.4) SEC Sodium 130 L (135-145) mmol/L Potassium 4.4 (3.3-5.1) mmol/L Chloride 94 L (96-108) mmol/L Carbon Dioxide 23 (22-29) mmol/L Anion Gap 17 (12-20) BUN 30 H (9-16) mg/dL Creatinine 1.34 (0.5-1.4) mg/dL Estim Creat Clear Calc 44.3 Estimated GFR 40 Random Glucose 56 L* (60-115) mg/dL Lactic Acid (0.5-2.0) mmol/L Calcium 8.5 (8.4-10.2) mg/dL Magnesium 1.3 L* (1.6-2.6) mg/dL Total Bilirubin 0.4 (0.0-1.0) mg/dL Direct Bilirubin 0.2 (0.0-0.5) mg/dL AST 32 H (5-31) U/L ALT 11 (0-31) U/L Alkaline Phosphatase 56 (39-117) U/L Total Creatine Kinase 146 H (26-140) U/L C-Reactive Protein 40.49 H (< or = 0.50) mg/dL B-Natriuretic Peptide (<100) pg/mL Total Protein 5.4 L (6.5-8.0) g/dL Albumin 3.2 L (3.5-5.0) g/dL COVID-19 ([facility]) (Negative) COVID-19 Clin Com Independent Interpretation I performed an independent interpretation of an: Ultrasound Interpretation: no visualized DVT Radiology Impression Discussion of test interpretation with radiology: I have reviewed the radiologist's reading. Radiologist Impression: IMPRESSION: No DVT demonstrated in either lower extremity. Complex shadowing area in the right popliteal fossa could represent a complex Washburn's cyst although based upon the imaging, I cannot be certain of this. Independent Historian Clinical information obtained from an independent historian. History obtained from or confirmed by: EMS External Record Review External record reviewed: Office record, Outpatient record, Prior outpatient labs and Prior outpatient radiology Tests considered The following testing was considered but not selected: CT scan of the LE considered but does not appear to be complex abscess or fluid collection Prescription Management I considered prescription management with: Pain Medication and Antibiotic Chronic Conditions Patient?s care impacted by: Diabetes, Hypertension and Other (RA, ) Social Determinants Patient?s care significantly limited by Social Determinants of Health including: Alcoholism and drug addiction in family Critical Care Time Critical Care Time Critical Care Time: Yes Total Critical Care Time: 39 Attestation: I have personally provided critical care time exclusive of time spent on separately billable procedures. Time includes review of lab data, radiology results, discussion with consultants, and monitoring for potential decompensation. Intervention performed as documented. Discharge Plan Discharge Clinical Impression: Cellulitis, Hypoglycemia, Hypomagnesemia, Acute hyponatremia, Sepsis Patient Disposition: Admitted As Inpatient
[2022-12-01 16:42] LABS: Hematocrit 37.3 % (37.0-47.0); Hemoglobin 12.8 g/dl (12.0-16.0); Mean Corpuscular HGB Conc 34.3 g/dl (31.0-35.0); Mean Corpuscular Volume 93.3 fL (80.0-98.0); Mean Platelet Volume 9.4 fL (9.4-12.3); Platelet Count 199 X10*3/uL (160-400); Red Cell Distribution Width 15.1 % (11.0-16.0)
[2022-12-01 16:51] LABS: INTERNATIONAL NORM RATIO 1.2 (0.9-1.1); Prothrombin Time 13.3 SEC (10.0-13.1)
[2022-12-01 16:53] LABS: WBC ABN SCTR FOR CBC 1
[2022-12-01 16:54] LABS: Partial Thromboplastin Time 36.9 SEC (26.0-36.4)
[2022-12-01] MEDS: Morphine Sulfate 4 MG/ML CARTRIDGE IVPUSH (16:55)
[2022-12-01] MEDS: ondansetron HCL 4 MG/2 ML VIAL IVPUSH (16:55)
[2022-12-01] MEDS: Fluconazole 150 MG TABLET PO (16:56)
[2022-12-01] MEDS: 0.9 % Sodium Chloride 1,000 ML 999 ML IVCONT (16:56)
[2022-12-01 16:58] LABS: Lactic Acid 2.5 mmol/L (0.5-2.0)
[2022-12-01 17:04] LABS: B Type Natriuretic Peptide 544 pg/mL (<100)
[2022-12-01 17:25] LABS: COVID-19 Test Negative (Negative); IDNOW Serial# 6674DD1D
[2022-12-01 17:29] LABS: Erythrocyte Sedimentation Rate 34 MM/HR (0-20)
[2022-12-01 17:45] LABS: Alanine Aminotransferase 11 U/L (0-31); Albumin Level 3.2 g/dL (3.5-5.0); Alkaline Phosphatase 56 U/L (39-117); Anion Gap 17 (12-20); Aspartate Amino Transferase 32 U/L (5-31); Bilirubin Direct 0.2 mg/dL (0.0-0.5); Bilirubin Total 0.4 mg/dL (0.0-1.0); Blood Urea Nitrogen 30 mg/dL (9-16); C Reactive Protein 40.49 mg/dL (< or = 0.50); Calcium 8.5 mg/dL (8.4-10.2); Carbon Dioxide 23 mmol/L (22-29); Chloride 94 mmol/L (96-108); Creatinine Clr Calc Pharmacy 44.3; Estimated Glomerular Filt Rate 40; Potassium 4.4 mmol/L (3.3-5.1); Sodium 130 mmol/L (135-145); Total Protein 5.4 g/dL (6.5-8.0)
[2022-12-01 17:47] LABS: Glucose Random 56 mg/dL (60-115); Magnesium 1.3 mg/dL (1.6-2.6)
[2022-12-01 17:49] LABS: Neutrophils Percent Manual 30 % (45-73)
[2022-12-01 17:50] LABS: Band Neutrophils Percent 43 % (3-5); Lymphocytes Percent Manual 3 % (20-40); Metamyelocytes Percent 13 %; Monocytes Percent Manual 3 % (2-11); Myelocytes Percent 8 %
[2022-12-01 17:57] LABS: Platelet Estimate NORMAL (NORMAL); Polychromasia 1+ (0-2) /OIF; RBC Morphology NOTED; Toxic Vacuolation PRESENT
[2022-12-01] MEDS: fentaNYL citrate/PF 100 MCG/2 ML VIAL 25 MCG IVPUSH (18:00)
[2022-12-01] MEDS: cefTRIAXone sodium 1 GM in 0.9 % Sodium Chloride 50 ML IV (18:01)
[2022-12-01 18:04] LABS: Platelet Morphology Comment NORMAL
[2022-12-01 18:09] LABS: Lymphocytes Absolute Manual 0.2 X10*3/uL (1.2-4.9); Metamyelocytes Absolute 0.9 X10*3/uL; Monocytes Absolute Manual 0.2 X10*3/uL (0.1-1.2); Myelocytes Absolute 0.6 X10*/uL; Neutrophils Absolute Manual 5.1 X10*3/uL (2.0-8.3)
[2022-12-01] MEDS: Magnesium Sulfate/H2O 2 GM/50 ML PIGGYBACK IV (18:14)
[2022-12-01] MEDS: Nystatin Ointment 15 GM TUBE 1 APPL TOPICAL (18:14)
[2022-12-01 18:18] VITALS: BP 128/72; PULSE 97; RESP 18; TEMP 36.4; O2SAT 96
[2022-12-01 18:30] LABS: Ethanol < 10 mg/dL
[2022-12-01 18:33] LABS: Glucose, Whole Blood 54 mg/dL (60-115)
[2022-12-01 18:39] LABS: Reflex Lactate? Lactic Acid Added
[2022-12-01] MEDS: Dextrose 50 % 25 GM/50 ML SYRINGE IVPUSH ×3 (18:42→22:26)
--- NOTE | 2022-12-01 18:52 | PM.IMHP ---
History of Present Illness Date of Service: 12/01/22 Chief Complaint: cellulitis 62 yo female with history of rheumatoid arthritis on Plaquenil since June 2019, chronic bronchitis, PVD, pulmonary embolism in 2019 (no longer on anticoagulation), history of a right knee replacement in August 2022 who presents to the ER from home via EMS c/o bilateral leg pain, redness and swelling. She reports on 11/28 she was scratching her LLE that resulted in multiple abrasions and excoriations on her leg. They developed into flat blisters and then became fluid filled. She then developed a sore throat and a headache the next day. She noticed redness of her left lower leg and warmth. She has had chills and generally not feeling well. Developed lower extremity left greater than right erythema and warmth and presented to ER Review of Systems Review of Systems: Denies chest pain Denies shortness of breath Denies nausea vomiting diarrhea. Admits to bilateral right greater than left lower extremity pain and cramping PMFSH Medical History Alcohol abuse Carpal tunnel syndrome Chronic bronchitis Diabetes Neuropathy Osteoarthritis Osteomyelitis Pilonidal cyst Pleurisy Pulmonary embolism Rheumatoid arthritis Seronegative rheumatoid arthritis Smoker Family History Mother CHF (congestive heart failure) Stroke Uterine cancer Father CHF (congestive heart failure) Sister Diabetes Brother Diabetes Pulmonary embolism Surgical History H/O hernia repair History of left knee replacement (~2016) History of surgery on arm History of total right knee replacement (TKR) Previous back surgery (~2015) Social History Are you a primary critical care physician to a significant other at home: No Alcohol intake: current Alcohol intake frequency: a few times a week Alcohol type: hard liquor Patient Tobacco Use Status: Current everyday Tobacco user Tobacco use type: Cigarette Cigarette Packs Per Day: 1 Cigarettes Per Day: 20 Years Smoked: 40 Advance Directives: No Advance Directives Information Provided: No Meds Allergies Allergy/AdvReac Type Severity Reaction Status Date / Time lisinopril Allergy Intermediate Swelling Verified 10/04/22 10:39 clavulanic acid Allergy Mild RASH Verified 10/04/22 10:39 [From Augmentin] aripiprazole [From ABILIFY] AdvReac Intermediate EDEMA Verified 10/04/22 10:39 duloxetine [From CYMBALTA] AdvReac Intermediate WT Verified 10/04/22 10:39 GAIN/EDEMA ibuprofen AdvReac Unknown kidney Verified 10/04/22 10:39 function Active Medications: Current Medications Acetaminophen (Acetaminophen 325 Mg Tablet) 650 mg PO Q6H PRN PRN Reason: Pain, Mild (Pain Scale 1-3) Dextrose (Dextrose 50 % 25 Gm/50 Ml Syringe) 25 gm IVPUSH Q15M PRN; Protocol PRN Reason: per Hypoglycemia Standing Ord. Enoxaparin Sodium (Enoxaparin Sodium 40 Mg/0.4 Ml Syringe) 40 mg SUBCUT Q24H EVIN Glucose (Glucose Gel 15 Gm Gel..Gram.) 15 gm PO Q15M PRN; Protocol PRN Reason: per Hypoglycemia Standing Ord. Vancomycin HCl (Vancomycin/Ns) 2,000 mg in 520 mls @ 260 mls/hr IV ONCE ONE Stop: 12/01/22 19:49 Magnesium Sulfate (Magnesium Sulfate/H2o) 2 gm in 50 mls @ 25 mls/hr IV ONCE ONE Stop: 12/01/22 19:50 Last Admin: 12/01/22 18:14 Dose: 25 mls/hr Dextrose/Sodium Chloride (D5ns) 1,000 mls @ 125 mls/hr IVCONT .Q8H EVIN Piperacillin Sod/Tazobactam (Sod 3.375 gm/ Sodium Chloride) 50 mls @ 100 mls/hr IV Q6H EVIN Insulin Human Lispro (Insulin Lispro 100 Unit/Ml 3 Ml Vial) 0 unit SUBCUT QIDACHS [facility]; Protocol Ondansetron HCl (Ondansetron Hcl 4 Mg/2 Ml Vial) 4 mg IVPUSH Q6H PRN PRN Reason: Nausea and Vomiting Pharmacy Consult (Consult Rx Perform Med Rec) 1 each MISCELLANE ONCE PRN PRN Reason: Consult order Pharmacy Consult (Consult Rx Perform Med Rec) 1 each MISCELLANE ONCE PRN PRN Reason: Consult order Pharmacy Consult (Consult Rx Vancomycin Dosing) 1 each MISCELLANE DAILY PRN PRN Reason: Consult order Sodium Chloride (0.9 % Sodium Chloride Flush 3 Ml Syringe) 3 ml IVFLUSH QSHIFT [facility] Home Medications Medication Instructions Recorded Confirmed Last Taken Type amlodipine 2.5 mg tablet 1 tab PO DAILY 08/12/20 07/19/22 Unknown History baclofen 10 mg tablet 1 tab PO TID 08/12/20 07/19/22 Unknown History blood sugar diagnostic (FreeStyle 08/12/20 07/19/22 Unknown History Lite Strips) bupropion HCl 300 mg 24 hr tablet, 1 tab PO DAILY 08/12/20 07/19/22 Unknown History extended release diclofenac sodium 1 % topical gel 4 g topical TID PRN Pain 08/12/20 07/19/22 Unknown History docusate sodium 100 mg capsule 1 cap PO BID 08/12/20 07/19/22 Unknown History (DOK) furosemide 20 mg tablet 1 tab PO BID PRN Systemic Signs 08/12/20 07/19/22 Unknown History And Symptoms hydroxyzine HCl 25 mg tablet 1 tab PO TID PRN Itching 08/12/20 07/19/22 Unknown History levothyroxine 88 mcg tablet 1 tab PO QAM 08/12/20 07/19/22 Unknown History (Euthyrox) metformin 850 mg tablet 1 tab PO BID 08/12/20 07/19/22 Unknown History omeprazole 20 mg capsule,delayed 1 cap PO DAILY 08/12/20 07/19/22 Unknown History release oxybutynin chloride 10 mg 1 tab PO DAILY 08/12/20 07/19/22 Unknown History tablet,extended release 24 hr oxycodone 20 mg tablet,crush 1 tab PO Q12H 08/12/20 07/19/22 Unknown History resistant,extended release 12 hr (OxyContin) simvastatin 20 mg tablet 1 tab PO BEDTIME 08/12/20 07/19/22 Unknown History venlafaxine 150 mg 1 cap PO DAILY 08/12/20 07/19/22 Unknown History capsule,extended release 24 hr nystatin 100,000 unit/gram topical topical BID PRN 03/06/21 07/19/22 Unknown History cream albuterol sulfate 90 mcg/actuation 0 mcg inhalation 11/08/21 07/19/22 Unknown History aerosol inhaler clotrimazole-betamethasone 1 appl topical BID 11/08/21 07/19/22 Unknown History %-0.05 % topical cream oxycodone 10 mg tablet 10 mg PO Q4H PRN 07/19/22 07/19/22 Unknown History pregabalin 75 mg capsule 75 mg PO BID 10/04/22 Unknown History Physical Exam Vital Signs and Narrative: Vital Signs: Last Vital Signs Temp 97.6 F 12/01/22 18:18 Pulse 97 12/01/22 18:18 Resp 18 12/01/22 18:18 BP 128/72 12/01/22 18:18 Pulse Ox 96 12/01/22 18:18 O2 Del Method 12/01/22 18:18 BMI result Body Mass Index 30.7 Const: Other: Awake; ill-appearing female who looks older than stated age Resp: Other: Clear to auscultation bilaterally no rales rhonchi or wheezes Cardio: Other: No S4; positive S1-S2; no S3 murmurs rubs or gallops GI: Other: Soft nontender nondistended with normoactive bowel sounds. No acute peritoneal signs Extrem: Other: Left lower extremity erythematous with blisters and weeping. Cool to touch bilaterally Results Labs 12/01/22 16:33 12/01/22 17:10 Labs: Laboratory Results - last 24 hr 12/01/22 12/01/22 12/01/22 16:32 16:32 16:32 MCV MCH MCHC RDW Plt Count MPV Immature Gran % (Auto) Neut % (Auto) Lymph % (Auto) [place] % (Auto) Eos % (Auto) Baso % (Auto) Lymph # (Auto) [place] # (Auto) Eos # (Auto) Baso # (Auto) Abs Immat Gran (auto) Absolute Neuts (auto) Absolute Nucleated RBC Nucleated RBC % (auto) Neutrophils % (Manual) Band Neutrophils % Lymphocytes % (Manual) Monocytes % (Manual) Metamyelocytes % Myelocytes % Abs Neuts (Manual) Lymphocytes # (Manual) Monocytes # (Manual) Metamyelocytes # Myelocytes # Toxic Vacuolation Platelet Estimate Plt Morphology Comment RBC Morphology Polychromasia ESR 34 H PT 13.3 H INR 1.2 H APTT 36.9 H Anion Gap Estim Creat Clear Calc Estimated GFR POC Glucose Random Glucose Lactic Acid 2.5 H* Calcium Magnesium Total Bilirubin Direct Bilirubin AST ALT Alkaline Phosphatase Total Creatine Kinase C-Reactive Protein B-Natriuretic Peptide Total Protein Albumin Ethyl Alcohol COVID-19 (DORY) COVID-19 Clin Com 12/01/22 12/01/22 12/01/22 16:32 16:33 16:33 MCV 93.3 MCH 32.0 MCHC 34.3 RDW 15.1 Plt Count 199 D MPV 9.4 Immature Gran % (Auto) Cancelled Neut % (Auto) Cancelled Lymph % (Auto) Cancelled [place] % (Auto) Cancelled Eos % (Auto) Cancelled Baso % (Auto) Cancelled Lymph # (Auto) Cancelled [place] # (Auto) Cancelled Eos # (Auto) Cancelled Baso # (Auto) Cancelled Abs Immat Gran (auto) Cancelled Absolute Neuts (auto) Cancelled Absolute Nucleated RBC 0.000 Nucleated RBC % (auto) 0.0 Neutrophils % (Manual) 30 L Band Neutrophils % 43 H Lymphocytes % (Manual) 3 L Monocytes % (Manual) 3 Metamyelocytes % 13 Myelocytes % 8 Abs Neuts (Manual) 5.1 Lymphocytes # (Manual) 0.2 L Monocytes # (Manual) 0.2 Metamyelocytes # 0.9 Myelocytes # 0.6 Toxic Vacuolation PRESENT Platelet Estimate NORMAL Plt Morphology Comment NORMAL RBC Morphology NOTED Polychromasia 1+ (0-2) ESR PT INR APTT Anion Gap Estim Creat Clear Calc Estimated GFR POC Glucose Random Glucose Lactic Acid Calcium Magnesium Total Bilirubin Direct Bilirubin AST ALT Alkaline Phosphatase Total Creatine Kinase C-Reactive Protein B-Natriuretic Peptide 544 H Total Protein Albumin Ethyl Alcohol COVID-19 (DORY) Negative COVID-19 Clin Com See Note 12/01/22 12/01/22 12/01/22 17:10 18:04 18:28 MCV MCH MCHC RDW Plt Count MPV Immature Gran % (Auto) Neut % (Auto) Lymph % (Auto) [place] % (Auto) Eos % (Auto) Baso % (Auto) Lymph # (Auto) [place] # (Auto) Eos # (Auto) Baso # (Auto) Abs Immat Gran (auto) Absolute Neuts (auto) Absolute Nucleated RBC Nucleated RBC % (auto) Neutrophils % (Manual) Band Neutrophils % Lymphocytes % (Manual) Monocytes % (Manual) Metamyelocytes % Myelocytes % Abs Neuts (Manual) Lymphocytes # (Manual) Monocytes # (Manual) Metamyelocytes # Myelocytes # Toxic Vacuolation Platelet Estimate Plt Morphology Comment RBC Morphology Polychromasia ESR PT INR APTT Anion Gap 17 Estim Creat Clear Calc 44.3 Estimated GFR 40 POC Glucose 54 L* Random Glucose 56 L* Lactic Acid Calcium 8.5 Magnesium 1.3 L* Total Bilirubin 0.4 Direct Bilirubin 0.2 AST 32 H ALT 11 Alkaline Phosphatase 56 Total Creatine Kinase 146 H C-Reactive Protein 40.49 H B-Natriuretic Peptide Total Protein 5.4 L Albumin 3.2 L Ethyl Alcohol < 10 COVID-19 ([facility]) COVID-19 Clin Com Imaging Radiologist's Impressions: Impressions Duplex Scan Lower Extremity Artery 12/01/22 17:40 IMPRESSION: There is no evidence of any hemodynamically significant lower extremity arterial disease by duplex Doppler criteria at rest. Some mild peripheral vascular disease is present with probable SFA stenoses. Venous Duplex 12/01/22 17:47 IMPRESSION: No DVT demonstrated in either lower extremity. Complex shadowing area in the right popliteal fossa could represent a complex Washburn's cyst although based upon the imaging, I cannot be certain of this. Knee X-Ray 12/01/22 18:26 IMPRESSION: Possible effusion present. No acute bony finding. Assessment and Plan (1) Cellulitis: Status: Acute (2) Hypoglycemia: Status: Acute (3) Hypomagnesemia: Status: Acute (4) Acute hyponatremia: Status: Acute (5) Alcohol abuse: Status: Acute (6) Rheumatoid arthritis: Status: Acute Plan 62-year-old female longstanding history of rheumatoid arthritis presents with left lower extremity cellulitis and weeping edema. Venous duplex and arterial studies both unremarkable. Of note she was also hypoglycemic in the ER requiring an amp of D50 and IV fluids. She states she has not eaten today 1. Lower extremity cellulitis -vanco/cefepime -blood cultures pending 2. Hypoglycemia -D5 normal saline at 125 an hour.... Given an amp of D50 -feed patient -follow-up POCs 3. Hypomagnesemia -given 2 g IV tonight -recheck levels in morning 4. Acute hyponatremia -likely hypovolemic hyponatremia -volume repletion -follow renals/divalents 5. Alcohol/tobacco abuse -CIWA scale -Nicoderm patch 6. Rheumatoid arthritis -will continue hydroxychloroquine/Lyrica/oxycodone as per outpatient dosing Full code Lovenox Patient will require 2 midnights inpatient for IV antibiotics to treat cellulitis; normalized divalents. This cannot be achieved a lesser acute setting Time Spent With Patient Time: Total time managing care of this patient today ____ minutes. Quality Stroke Does the patient have a stroke diagnosis?: No VTE Prior VTE?: No VTE Risk Level:: Medical - moderate - high VTE Device Contraindication: Treatment Not Indicated VTE Drug Contraindication: N/A - Med Ordered
[2022-12-01 19:31] VITALS: BP 120/66; PULSE 124; RESP 20; TEMP 36.9; O2SAT 94
[2022-12-01 19:31] LABS: Basophils Absolute Auto 0.1 X10*3/uL (0.0-0.2); Basophils Percent Auto 1.2 % (0-2); Eosinophils Percent Auto 0.2 % (0-4); Hematocrit 38.3 % (37.0-47.0); Hemoglobin 12.9 g/dl (12.0-16.0); Imm Gran Abs Auto 0.02 X10*3/uL (0.00-0.03); Imm Gran Pct Auto 0.5 % (0.0-0.4); LEFT SHIFT? 1; Lymphocytes Absolute Auto 0.1 X10*3/uL (1.2-4.9); Lymphocytes Percent Auto 2.9 % (20-40); Mean Corpuscular HGB Conc 33.7 g/dl (31.0-35.0); Mean Platelet Volume 9.5 fL (9.4-12.3); Monocytes Absolute Auto 0.1 X10*3/uL (0.1-1.2); Monocytes Percent Auto 1.2 % (2-11); Neutrophils Absolute Auto 3.9 x10*3/uL (2.0-8.3); Platelet Count 178 X10*3/uL (160-400); Red Blood Count 4.03 X10*6/uL (4.20-5.50); Red Cell Distribution Width 14.9 % (11.0-16.0); SCAN SMEAR FLAG 1; WBC ABN SCTR 1
[2022-12-01 19:40] LABS: Glucose, Whole Blood 100 mg/dL (60-115)
[2022-12-01 19:43] LABS: WBC ABN SCTR FOR CBC 1
[2022-12-01 19:46] LABS: MANUAL DIFF FLAG NO; White Blood Count 4.1 X10*3/uL (4.8-10.8)
[2022-12-01 19:55] LABS: ~Lactic Acid-LAB USE ONLY 5.7 mmol/L (0.5-2.0)
--- NOTE | 2022-12-01 20:26 | PHA.PROG ---
Admission Date/Time: December 01, 2022 18:45 Indication: Cellulitis, sepsis Weight in k.6 kg Adjusted body weight in K.88 kg [place] body weight in K.4 kg Obesity Dosing Indication % IBW: 150% Serum Creatinine - Last 168 Hours 12/01/22 17:10 Creatinine 1.34 Estimated CrCl and GFR - Last 168 Hours 12/01/22 17:10 Estim Creat Clear Calc 44.3 Estimated GFR 40 Vancomycin Loading Dose: 2000 mg Current Vancomycin Dosing Regimen: 1250 mg Q24H Date and Time for next Vancomycin Level to be drawn: 12/03 @ 1800 Pharmacist Comments on Vancomycin Plan: patient receiving adequate vancomycin 2000 mg loading dose on 12/01 @ 2017. Maitenance dose vanco 1250 mg Q24H is schedule to start 12/02 @ 1999. Expected AUC 512 with a trough of 15.5. Patient is consider obese with %IBW ? 130%, therefore needs careful monitor due to vancomycin high volume of distribution Level to be drawn prior to 3rd dose to [facility] for safety Pharmacy will monitor renal function daily. Darshana Beltran PharmD Vancomycin dosing will take advantage of [employer] as a clinical decision support tool that uses Bayesian modeling to calculate individual patient's pharmacokinetic parameters and forecast the patient's drug concentration time course with the target goal AUC 24 range of 400 - 600 mg/L/hr.
[2022-12-01] MEDS: HYDROmorphone HCl 1 MG/ML SYRINGE IVPUSH (21:14)
[2022-12-01] MEDS: Enoxaparin Sodium 40 MG/0.4 ML SYRINGE SUBCUT (21:14)
[2022-12-01] MEDS: oxyCODONE HCl ER 10 MG TAB.ER.12H 20 MG PO (21:24)
[2022-12-01 21:28] LABS: Reflex Lactate? 2 Y
[2022-12-01 21:28] LABS: Glucose, Whole Blood 50 mg/dL (60-115)
[2022-12-01] MEDS: 0.9 % Sodium Chloride 1,000 ML 999 ML IV ×2 (21:28→23:47)
[2022-12-01 21:34] VITALS: BP 137/73; PULSE 137; RESP 20; TEMP 38.6; O2SAT 95
--- NOTE | 2022-12-01 21:35 | PC.NURSE ---
This designer writer assumed care of this PT at 1900. PT A&O to self and place, PT reports headache, hand tremors noted, and restless but redirectable, word salad. BLL weeping edema noted. Left ankle has a skin tear with small quarter size blister. CIWA score 19, provider notified. Multiple attempts made for 2nd IV access unsuccessful provider notified.
[2022-12-01] MEDS: Acetaminophen 325 MG TABLET 650 MG PO (21:39)
[2022-12-01] MEDS: PHENobarbitaL sodium 130 MG/ML IM ONCE 208 MG IM (22:28)
[2022-12-01] MEDS: cefEPime HCl 2 GM in 0.9 % Sodium Chloride 50 ML IV (22:31)
[2022-12-01 22:32] LABS: Glucose, Whole Blood 44 mg/dL (60-115)
[2022-12-01 22:37] LABS: ~Lactic Acid-LAB USE ONLY 4.9 mmol/L (0.5-2.0)
[2022-12-01] MEDS: Dextrose 5 % and 0.9 % NaCl 1,000 ML 125 ML IVCONT (22:37)
[2022-12-01 22:44] VITALS: TEMP 37.9
--- NOTE | 2022-12-01 22:50 | PC.NURSE ---
2nd IV established via ultrasound guided. 20G to left upper arm.
--- NOTE | 2022-12-01 23:24 | PC.NURSE ---
HR 140's. Provider notified. EKG obtained.
[2022-12-01 23:37] LABS: Glucose, Whole Blood 80 mg/dL (60-115)
[2022-12-02] VITALS (57 sets, daily range): BP systolic 80–147; BP diastolic 22–98; PULSE 82–142; RESP 17–26; TEMP 38–39.6; O2SAT 92–100; BMI 31.4
--- NOTE | 2022-12-02 00:51 | PC.NURSE ---
hospitalist called and report pt hr 145, temp reported 102.8 rectal. made aware of left arm iv infiltrated. verbal order ok for hr to be 140. plan is to give tylenol and albumin and orders are being entered, pt status deteriorating and parris is aware.
[2022-12-02] MEDS: Acetaminophen 1,000 MG/100 ML PIGGYBACK 400 MG IV (01:01)
--- NOTE | 2022-12-02 01:04 | PC.NURSE ---
supervisor pre wave called for albumin not available in [facility]
--- NOTE | 2022-12-02 01:32 | PC.NURSE ---
18G EJ placed by provider to R side. Intact and secured with tegaderm.
--- NOTE | 2022-12-02 01:37 | PC.NURSE ---
Unable to score PT for CIWA, PT sleeping at this time.
[2022-12-02] MEDS: PHENobarbitaL sodium 130 MG/ML VIAL IM Q3Hx2 157.3 MG IM (01:45)
--- NOTE | 2022-12-02 01:55 | PC.NURSE ---
Provider aware of BP.
[2022-12-02] MEDS: Albumin Human 25 % 50 ML IV (01:58)
--- NOTE | 2022-12-02 01:59 | PC.NURSE ---
Addendum entered by Janeth Handley 12/02/22 03:22: RN to RN report given. PT being transported to room 255. Addendum entered by Janeth Handley 12/02/22 03:10: POC 51, dextrose give as ordered. foundry technician at bedside drawing blood, PT awake stating that hurts the back to sleep. Fluids continue to run through R AC. Addendum entered by Janeth Handley 12/02/22 02:35: O2 sat 88% on RA, placed on 2L NC. Provider at bedside. O2 95% on 2L. RR 25. Addendum entered by Janeth Handley 12/02/22 02:23: BP 84/47, provider notified. Original Note: PT in supine position in bed, arousable to painful stimuli but falling back to sleep. Skin pink, warm and dry. Fluids running to EJ and R AC. RR 24, equal risen fall bilaterally. Faint bilateral radial pulses. HR 137. Will CTM.
--- NOTE | 2022-12-02 02:26 | PC.NURSE ---
Pt is currently in bed with IV fluids running into the EJ and Right AC. Pt is arousable to painful stimuli only and is unable to stay awake long enough to answer questions. Upper extremities are cool, dry, and mottled in color with some scattered bruising. Pt?s left arm is swollen and warm due to infiltration from a previous IV. Lower extremities are warm, shiny, pink, and dry with +1 pitting edema. There are some blisters and a tear located on the left leg which is weeping. Faint peripheral pulses are present in all 4 extremities. Pt respirations are steady with equal rise and fall bilaterally. Airway is patent and intact. Pt vitals are as documented. No new orders at this time, will continue to monitor.
--- NOTE | 2022-12-02 02:35 | PC.NURSE ---
hospitalist and doughnut icer machine at bedside, 3 bp low in the 80'/ . plan is to admit to icu.
--- NOTE | 2022-12-02 02:36 | PM.EVENT ---
Event Note Date of Service: 12/02/22 Event Note: Patient with hyperthermia, lactic acidosis, and hypotension despite adequte fluid resuscitation. Will consult ICU for pressor needs. Time Spent With Patient Time: Total time managing care of this patient today ____ minutes.
--- NOTE | 2022-12-02 02:52 | W.PM.CCCN ---
History of Present Illness Data of Consult Service Date: 12/02/22 Requesting physician: Gallo De La O Primary Care Provider: Unknown Physician HPI Reason for consult: Hypotension, tachycardia, lactic acidosis HPI: The patient is a 62-year-old female past medical history of rheumatoid arthritis on Plaquenil since June 2019, chronic bronchitis, PVD, PE in 2019 (no longer on anticoagulation), ? s/p right knee replacement 08/2022 and ETOH abuse who presented to the ER with a complaint of bilateral leg pain redness and swelling.? On 11/28/2022? she obtained multiple abrasions and excoriations on her left lower extremity after scratching herself that developed into fluid-filled blisters.? The following day she developed a sore throat and headache and noticed warmth and redness to the extremity. She has been feeling generally unwell and has had chills for the last several days? until she finally became weak, off balance and confused, developed nausea with dry heaving? and had severe pain along with redness and warmth in both legs prompting her to come to the emergency room? yesterday. In the ER the patient was noted to be normotensive, afebrile and not hypoxic. Her initial workup was revealed a? WBC of? 7.0? with 43% bandemia, sodium 130,? BUN 30, creatinine 1.34,glucose of 56, CRP of 40 0.49, CPK 146, BNP 544, magnesium 1.3,? an initial lactate of 1.3. ? Her physical? exam was consistent with a cellulitis of the lower extremities however there is concern due to nonpalpable pulses in the feet.? Both arterial and venous duplex scan showed no DVT. Blood cultures were drawn.She was given 1 L normal saline, 1 g ceftriaxone, 2 g cefepime, 2 g? magnesium sulfate,? p.o. fluconazole and was admitted for the treatment of? hyponatremia and sepsis secondary to lower extremity cellulitis.? The patient had been boarding in the emergency room when we were called to consult for hypotension, tachycardia, and lactic acidosis. She became febrile at approximately? 2130 but her vitals remained stable until about? 0100 when her blood pressure began to drop.? She was given a 1L bolus of normal saline and 1 bottle of 25% albumin? with little effect.? She had very poor IV access; fluids were infusing through a peripheral line in her right neck.? A repeat lactic acid at 1930 was 5.7 and came down to 4.9 after fluid administration. Additionally, the patient had multiple episodes of hypoglycemia with blood sugar values ranging from the mid 40s to mid 50s for which she received D50.? She was also started on D5 normal saline at a maintenance dose of 125 mL/ hour. It was clear that the patient required pressor support and would need a central line.? On my exam in the ER, she was tachycardic with a heart rate of 141,? BP 84/47,? her temp was 101.5 degrees, she was satting 91% on room air. I was unable to assess mental status? as the patient was? somnolent, probably due to the phenobarbital she had been given for alcohol withdrawal.? She was minimally arousable with sternal rub, unable to follow commands, speaking with slurred speech. Plan of care: Admit to ICU, close vital signs monitoring,I's and O's. Patient does have very poor IV access and will need a central line.? She has already been empirically treated with ceftriaxone, vancomycin, and cefepime.? Will continue the cefepime and vancomycin as previously ordered.? She already received 3L of IV fluids and 1 bag of albumin but we will continue cautiously with maintenance IV fluids with dextrose to maintain glucose levels and improve blood pressure. ? Start pressors as needed. She appears to be breathing fine and is in no respiratory distress.? Her lungs sound clear and a little coarse but she has good inspiratory effort, however, her BNP was elevated on admission without previous diagnosis of heart failure. Will obtain a urine, a venous blood gas and repeat labs in the morning. Clinical update 0610 Peripheral line in the right neck was infiltrated upon arrival to the unit.? Therefore a central line was placed in the left IJ without? incident.? She was started on Levophed.? Blood pressure initially showed improvement, but she has required multiple titrations to keep her MAP at or above 60.? Heart rate is back in sinus rhythm 80s to 90s.? A Romano catheter was placed and the patient immediately emptied out approximately 700 mL of clear yellow urine.? The specimen was sent to the lab for testing.? Chest x-ray showed no focal consolidation, no evidence pneumothorax, no pleural effusion or pulmonary edema. Respiratory status remains stable on 2 L nasal cannula. Her hypotension does appear to be directly related to sepsis. Will await culture results.? Laboratory on standby to collect specimens for morning labs;? at this point will have to wait until her blood pressure is better controlled to put the Levophed on hold in order to obtain samples. Review of Systems Review of Systems: Yes Unobtainable due to mental condition PMFSH Past Medical History Medical History Alcohol abuse Carpal tunnel syndrome Chronic bronchitis Diabetes Neuropathy Osteoarthritis Osteomyelitis Pilonidal cyst Pleurisy Pulmonary embolism Rheumatoid arthritis Seronegative rheumatoid arthritis Smoker Family History Family History Mother CHF (congestive heart failure) Stroke Uterine cancer Father CHF (congestive heart failure) Sister Diabetes Brother Diabetes Pulmonary embolism Surgical History Surgical History H/O hernia repair History of left knee replacement (~2016) History of surgery on arm History of total right knee replacement (TKR) Previous back surgery (~2015) Social History Social History Household Members: None Housing: Unknown / Unable to assess Are you a primary critical care unit manager to a significant other at home: No Unable to assess alcohol history related to: Unable to respond Alcohol intake: current Alcohol intake frequency: a few times a week Alcohol type: hard liquor Patient Tobacco Use Status: Refuse Tobacco use screen Tobacco use type: Cigarette Cigarette Packs Per Day: 1 Cigarettes Per Day: 20 Years Smoked: 40 Meds Allergies Allergy/AdvReac Type Severity Reaction Status Date / Time lisinopril Allergy Intermediate Swelling Verified 10/04/22 10:39 clavulanic acid Allergy Mild RASH Verified 10/04/22 10:39 [From Augmentin] aripiprazole [From ABILIFY] AdvReac Intermediate EDEMA Verified 10/04/22 10:39 duloxetine [From CYMBALTA] AdvReac Intermediate WT Verified 10/04/22 10:39 GAIN/EDEMA ibuprofen AdvReac Unknown kidney Verified 10/04/22 10:39 function Active Medications: Current Medications Acetaminophen (Acetaminophen 325 Mg Tablet) 650 mg PO Q6H PRN PRN Reason: Pain, Mild (Pain Scale 1-3) Last Admin: 12/01/22 21:39 Dose: 650 mg Dextrose (Dextrose 50 % 25 Gm/50 Ml Syringe) 25 gm IVPUSH Q15M PRN; Protocol PRN Reason: per Hypoglycemia Standing Ord. Last Admin: 12/01/22 22:26 Dose: 25 gm Enoxaparin Sodium (Enoxaparin Sodium 40 Mg/0.4 Ml Syringe) 40 mg SUBCUT Q24H [facility] Last Admin: 12/01/22 21:14 Dose: 40 mg Glucose (Glucose Gel 15 Gm Gel..Gram.) 15 gm PO Q15M PRN; Protocol PRN Reason: per Hypoglycemia Standing Ord. Dextrose/Sodium Chloride (D5ns) 1,000 mls @ 125 mls/hr IVCONT .Q8H [facility] Last Infusion: 12/02/22 01:01 Dose: 0 mls/hr Cefepime HCl 2 gm/ Sodium (Chloride) 50 mls @ 100 mls/hr IV Q12H [facility] Last Infusion: 12/01/22 23:18 Dose: Infused Vancomycin HCl 1,250 mg/ (Sodium Chloride) 250 mls @ 166.667 mls/hr IV Q24H [facility] Insulin Human Lispro (Insulin Lispro 100 Unit/Ml 3 Ml Vial) 0 unit SUBCUT QIDACHS [facility]; Protocol Last Admin: 12/01/22 21:23 Dose: Not Given Ondansetron HCl (Ondansetron Hcl 4 Mg/2 Ml Vial) 4 mg IVPUSH Q6H PRN PRN Reason: Nausea and Vomiting Oxycodone HCl (Oxycodone Hcl Immed Release 5 Mg Tablet) 10 mg PO Q4H PRN PRN Reason: Pain, Moderate (Pain Scale 4-6 Oxycodone HCl (Oxycodone Hcl Er 10 Mg Tab.Er.12h) 20 mg PO BID [facility] Last Admin: 12/01/22 21:24 Dose: 20 mg Pharmacy Consult (Consult Rx Vancomycin Dosing) 1 each MISCELLANE DAILY PRN PRN Reason: Consult order Pharmacy Consult (Consult Rx Etoh Phenob Im/Po) 1 each MISCELLANE ONCE PRN; Protocol PRN Reason: Consult order Phenobarbital (Phenobarbital 15 Mg Tablet) 45 mg PO BID [facility]; Protocol Stop: 12/04/22 09:01 Phenobarbital (Phenobarbital 15 Mg Tablet) 15 mg PO BID [facility]; Protocol Stop: 12/06/22 09:01 Phenobarbital (Phenobarbital 15 Mg Tablet) 15 mg PO DAILY [facility]; Protocol Stop: 12/08/22 09:01 Phenobarbital Sodium (Phenobarbital Sodium 130 Mg/Ml Vial Im Q3hx2) 157.3 mg IM Q3H [facility]; Protocol Stop: 12/02/22 04:31 Last Admin: 12/02/22 01:45 Dose: 157.3 mg Sodium Chloride (0.9 % Sodium Chloride Flush 3 Ml Syringe) 3 ml IVFLUSH QSHIFT [facility] Last Admin: 12/02/22 00:58 Dose: Not Given Home Medications Medication Instructions Recorded Confirmed Last Taken Type amlodipine 2.5 mg tablet 1 tab PO DAILY 08/12/20 07/19/22 Unknown History baclofen 10 mg tablet 1 tab PO TID 08/12/20 07/19/22 Unknown History blood sugar diagnostic (FreeStyle 08/12/20 07/19/22 Unknown History Lite Strips) bupropion HCl 300 mg 24 hr tablet, 1 tab PO DAILY 08/12/20 07/19/22 Unknown History extended release diclofenac sodium 1 % topical gel 4 g topical TID PRN Pain 08/12/20 07/19/22 Unknown History docusate sodium 100 mg capsule 1 cap PO BID 08/12/20 07/19/22 Unknown History (DOK) furosemide 20 mg tablet 1 tab PO BID PRN Systemic Signs 08/12/20 07/19/22 Unknown History And Symptoms hydroxyzine HCl 25 mg tablet 1 tab PO TID PRN Itching 08/12/20 07/19/22 Unknown History levothyroxine 88 mcg tablet 1 tab PO QAM 08/12/20 07/19/22 Unknown History (Euthyrox) metformin 850 mg tablet 1 tab PO BID 08/12/20 07/19/22 Unknown History omeprazole 20 mg capsule,delayed 1 cap PO DAILY 08/12/20 07/19/22 Unknown History release oxybutynin chloride 10 mg 1 tab PO DAILY 08/12/20 07/19/22 Unknown History tablet,extended release 24 hr oxycodone 20 mg tablet,crush 1 tab PO Q12H 08/12/20 07/19/22 Unknown History resistant,extended release 12 hr (OxyContin) simvastatin 20 mg tablet 1 tab PO BEDTIME 08/12/20 07/19/22 Unknown History venlafaxine 150 mg 1 cap PO DAILY 08/12/20 07/19/22 Unknown History capsule,extended release 24 hr nystatin 100,000 unit/gram topical topical BID PRN 03/06/21 07/19/22 Unknown History cream albuterol sulfate 90 mcg/actuation 0 mcg inhalation 11/08/21 07/19/22 Unknown History aerosol inhaler clotrimazole-betamethasone 1 appl topical BID 11/08/21 07/19/22 Unknown History %-0.05 % topical cream oxycodone 10 mg tablet 10 mg PO Q4H PRN 07/19/22 07/19/22 Unknown History pregabalin 75 mg capsule 75 mg PO BID 10/04/22 Unknown History Physical Exam Vital Signs: Vital Signs: Last Vital Signs Temp 101.5 F H 12/02/22 02:27 Pulse 136 H 12/02/22 02:50 Resp 24 H 12/02/22 02:50 BP 87/49 L 12/02/22 02:50 Pulse Ox 97 12/02/22 02:50 O2 Del Method 12/02/22 02:50 O2 Flow Rate 2 12/02/22 02:50 BMI result Body Mass Index 30.7 Const: General: ill appearing acutely, lethargic and patient obtunded Nutritional Appearance: obese Orientation/consciousness: patient obtunded and lethargic HEENT: Head: Yes normal to inspection General nose exam: Normal external nose present (Nares patent, septum midline, sinuses nontender bilaterally.) Mouth: Normal oral and palatal mucosa present (No thrush, tongue in midline, mucosa dry.) Throat: Yes other (No erythema, no exudate.) Neck: Neck: Yes supple (no thyromegaly, trachea midline.) Resp: Auscultation: clear to auscultation bilaterally (coarse) Cardio: Jugular venous distension: no JVD Rate: tachycardic Rhythm: regular rhythm Heart sounds: no gallops, no murmurs and no rubs GI: Palpation (GI): Soft to palpation (obese, nondistended.) and nontender Auscultation: normal bowel sounds Skin: Rashes: rashes noted (fungal) bilateral groin color red Wounds: wounds noted (cellulitis with open and weeping fluid filled blisters BLE) Neuro: General: patient obtunded Extrem: General: Yes full ROM and Yes no clubbing, cyanosis or edema Results Labs 12/01/22 19:24 12/01/22 17:10 Labs: Short CBC 12/01/22 12/01/22 Range/Units 16:33 19:24 WBC 7.0 4.1 L (4.8-10.8) X10*3/uL Hgb 12.8 12.9 (12.0-16.0) g/dl Hct 37.3 38.3 (37.0-47.0) % Plt Count 199 D 178 (160-400) X10*3/uL BMP 12/01/22 17:10 Sodium 130 L Potassium 4.4 Chloride 94 L Carbon Dioxide 23 BUN 30 H Creatinine 1.34 Calcium 8.5 Cardiac Enzymes 12/01/22 Range/Units 17:10 Total Creatine Kinase 146 H (26-140) U/L Liver Function 12/01/22 Range/Units 17:10 Total Bilirubin 0.4 (0.0-1.0) mg/dL Direct Bilirubin 0.2 (0.0-0.5) mg/dL AST 32 H (5-31) U/L ALT 11 (0-31) U/L Alkaline Phosphatase 56 (39-117) U/L Albumin 3.2 L (3.5-5.0) g/dL Assessment and Plan (1) Sepsis: Status: Acute (2) Lactic acid acidosis: Status: Acute (3) Hypotension: Status: Acute (4) Tachycardia: Status: Acute (5) Cellulitis: Status: Acute (6) RICARDO (acute kidney injury): Status: Acute (7) Acute hyponatremia: Status: Acute (8) Hypoglycemia: Status: Acute (9) Hypomagnesemia: Status: Acute (10) Alcohol abuse: Status: Acute Time Spent With Patient Time: Total time managing care of this patient today ____ minutes.
[2022-12-02 03:03] LABS: Glucose, Whole Blood 51 mg/dL (60-115)
[2022-12-02] MEDS: Dextrose 50 % 25 GM/50 ML SYRINGE IVPUSH (03:03)
[2022-12-02 03:16] LABS: Venous Blood Gas Refer to POC result
[2022-12-02 03:17] LABS: VBG Base Excess -5.2 mmol/L; VBG HCO3 20 mmol/L (22-26); VBG pCO2 40 mmHg; VBG pO2 73 mmHg
[2022-12-02] MEDS: Norepinephrine Bitartrate/D5W 8 MG/250 ML PLAST..BAG 7.37 MG IV (03:45)
[2022-12-02 03:51] LABS: Glucose, Whole Blood 87 mg/dL (60-115)
[2022-12-02 04:16] LABS: Amphetamine Screen Urine Not Detected (Not Detect); Barbiturates, Urine POSITIVE (Not Detect); Benzodiazepines Screen Urine Not Detected (Not Detect); Cannabinoid Screen Urine Not Detected (Not Detect); Cocaine Screen Urine Not Detected (Not Detect); Fentanyl, urine POSITIVE (Not Detect); Opiate Screen Urine POSITIVE (Not Detect); Phencyclidine Screen Urine Not Detected (Not Detect)
[2022-12-02 04:17] LABS: Appearance Urine Clear; Color Urine Yellow; Glucose Urine UA 100 mg/dL (Negative); Leukocyte Esterase Urine Negative (Negative); Nitrite Urine Negative (Negative); UMIC TRIGGER UA YES; Urine Blood Negative (Negative); Urine Ketones Negative (Negative); Urine Protein 30 (1+) mg/dL (Neg-Trace)
[2022-12-02 04:28] LABS: Bacteria Urine None Seen (None Seen); Squamous Epithelial Cell Urine 0-2 /HPF (0-2); WBC Urine 0-5 /HPF (0-5)
--- NOTE | 2022-12-02 05:08 | W.PM.CCHP ---
Procedures Date of Service Date of Service: 12/02/22 Central Line Placement Left IJ: Central Line Comments: Vascular ultrasound was used to examine the left neck. ? A large compressible internal jugular vein was noted, lateral to the carotid artery.?? The left neck was widely prepped and draped in full sterile fashion.? Under US? guidance, the left IJ vein was cannulated on the 1st pass of the 18 g thin wall needle, with return of dark, nonpulsatile blood. ? The wire was threaded without incident.? The 16 cm x 7 Romanian triple-lumen CVC was advanced into the vein up to the hub via the Seldinger technique without incident.? There was good blood return x3.? The catheter was sutured x2 and a Biopatch and dry sterile dressing were applied. Postop chest x-ray showed the line in good position. ?The patient tolerated the procedure well with no complications. Consent for Procedure: Emergent-no informed consent obtained Time out performed: Yes Sterile Technique Used: Yes Patient placed on monitor/pulse ox: Yes MD prep: mask, gown and gloves Central line prep: Chlorhexidine scrub and sterile drapes applied Local anesthesia used: lidocaine 2% Amount of anesthesia used (ml): 4 Ultrasound used for placement: Yes Central line lumen inserted: triple Post procedure: sutured in place, good blood return, all ports aspirated, flushed, capped and sterile dressing applied Post procedure x-ray: tip of catheter in good position and no pneumothorax seen Patient tolerated procedure: well and no complications Complications: none
[2022-12-02] MEDS: Dextrose 5 % and 0.9 % NaCl 1,000 ML 125 ML IVCONT (05:42)
[2022-12-02 05:48] LABS: Glucose, Whole Blood 72 mg/dL (60-115)
--- NOTE | 2022-12-02 06:23 | P.CONCC_ITS ---
History of Present Illness Data of Consult Service Date: 12/02/22 Requesting physician: Gallo De La O Primary Care Provider: Unknown Physician HPI Reason for consult: hypotension, tachycardia, lactic acidosis The patient is a 62-year-old female past medical history of rheumatoid arthritis on Plaquenil since June 2019, chronic bronchitis, PVD, PE in 2019 (no longer on anticoagulation), ? s/p right knee replacement 08/2022 and ETOH abuse who presented to the ER with a complaint of bilateral leg pain redness and swelling.? On 11/28/2022? she obtained multiple abrasions and excoriations on her left lower extremity after scratching herself that developed into fluid-filled blisters.? The following day she developed a sore throat and headache and noticed warmth and redness to the extremity. She has been feeling generally unwell and has had chills for the last several days? until she finally became weak, off balance and confused, developed nausea with dry heaving? and had severe pain along with redness and warmth in both legs prompting her to come to the emergency room? yesterday. In the ER the patient was noted to be normotensive, afebrile and not hypoxic. He r initial workup was revealed a? WBC of? 7.0? with 43% bandemia, sodium 130,? BUN 30, creatinine 1.34,glucose of 56, CRP of 40 0.49, CPK 146, BNP 544, magnesium 1.3,? an initial lactate of 1.3. ? Her physical? exam was consistent with a cellulitis of the lower extremities however there is concern due to nonpalpable pulses in the feet.? Both arterial and venous duplex scan showed no DVT. Blood cultures were drawn.She was given 1 L normal saline, 1 g ceftriaxone, 2 g cefepime, 2 g? magnesium sulfate,? p.o. fluconazole and was admitted for the treatment of? hyponatremia and sepsis secondary to lower extremity cellulitis.? The patient had been boarding in the emergency room when we were called to consult for hypotension, tachycardia, and lactic acidosis. She became febrile at approximately? 2130 but her vitals remained stable until about? 0100 when her blood pressure began to drop.? She was given a 1L bolus of normal saline and 1 bottle of 25% albumin? with little effect.? She had very poor IV access; fluids were infusing through a peripheral line in her right neck.? A repeat lactic acid at 1930 was 5.7 and came down to 4.9 after fluid administration. Additionally, the patient had multiple episodes of hypoglycemia with blood sugar values ranging from the mid 40s to mid 50s for which she received D50.? She was also started on D5 normal saline at a maintenance dose of 125 mL/ hour. It was clear that the patient required pressor support and would need a central line.? On my exam in the ER, she was tachycardic with a heart rate of 141,? BP 84/47,? her temp was 101.5 degrees, she was satting 91% on room air. I was unable to assess mental status? as the patient was? somnolent, probably due to the phenobarbital she had been given for alcohol withdrawal.? She was minimally arousable with sternal rub, unable to follow commands, speaking with slurred speech. Plan of care: Admit to ICU, close vital signs monitoring,I's and O's. Patient does have very poor IV access and will need a central line.? She has already been empirically treated with ceftriaxone, vancomycin, and cefepime.? Will continue the cefepime and vancomycin as previously ordered.? She already received 3L of IV fluids and 1 bag of albumin but we will continue cautiously with maintenance IV fluids with dextrose to maintain glucose levels and improve blood pressure. ? Start pressors as needed. She appears to be breathing fine and is in no respiratory distress.? Her lungs sound clear and a little coarse but she has good inspiratory effort, however, her BNP was elevated on admission without previous diagnosis of heart failure. Will obtain a urine, a venous blood gas and repeat labs in the morning. Clinical update 0610 Peripheral line in the right neck was infiltrated upon arrival to the unit.? Therefore a central line was placed in the left IJ without? incident.? She was started on Levophed.? Blood pressure initially showed improvement, but she has required multiple titrations to keep her MAP at or above 60.? Heart rate is back in sinus rhythm 80s to 90s.? A Romano catheter was placed and the patient immediately emptied out approximately 700 mL of clear yellow urine.? The specimen was sent to the lab for testing.? Chest x-ray showed no focal consolidation, no evidence pneumothorax, no pleural effusion or pulmonary edema. Respiratory status remains stable on 2 L nasal cannula. Her hypotension does appear to be directly related to sepsis. Will await culture results.? Laboratory on standby to collect specimens for morning labs;? at this point will have to wait until her blood pressure is better controlled to put the Levophed on hold in order to obtain samples. Review of Systems Review of Systems: Yes Unobtainable due to mental condition PMFSH Past Medical History Medical History Alcohol abuse Carpal tunnel syndrome Chronic bronchitis Diabetes Neuropathy Osteoarthritis Osteomyelitis Pilonidal cyst Pleurisy Pulmonary embolism Rheumatoid arthritis Seronegative rheumatoid arthritis Smoker Family History Family History Mother CHF (congestive heart failure) Stroke Uterine cancer Father CHF (congestive heart failure) Sister Diabetes Brother Diabetes Pulmonary embolism Surgical History Surgical History H/O hernia repair History of left knee replacement (~2016) History of surgery on arm History of total right knee replacement (TKR) Previous back surgery (~2015) Social History Social History Household Members: None Housing: Unknown / Unable to assess Are you a primary healthcare architect to a significant other at home: No Unable to assess alcohol history related to: Unable to respond Alcohol intake: current Alcohol intake frequency: a few times a week Alcohol type: hard liquor Patient Tobacco Use Status: Refuse Tobacco use screen Tobacco use type: Cigarette Cigarette Packs Per Day: 1 Cigarettes Per Day: 20 Years Smoked: 40 Meds Allergies Allergy/AdvReac Type Severity Reaction Status Date / Time lisinopril Allergy Intermediate Swelling Verified 10/04/22 10:39 clavulanic acid Allergy Mild RASH Verified 10/04/22 10:39 [From Augmentin] aripiprazole [From ABILIFY] AdvReac Intermediate EDEMA Verified 10/04/22 10:39 duloxetine [From CYMBALTA] AdvReac Intermediate WT Verified 10/04/22 10:39 GAIN/EDEMA ibuprofen AdvReac Unknown kidney Verified 10/04/22 10:39 function Active Medications: Current Medications Acetaminophen (Acetaminophen 325 Mg Tablet) 650 mg PO Q6H PRN PRN Reason: Pain, Mild (Pain Scale 1-3) Last Admin: 12/01/22 21:39 Dose: 650 mg Dextrose (Dextrose 50 % 25 Gm/50 Ml Syringe) 25 gm IVPUSH Q15M PRN; Protocol PRN Reason: per Hypoglycemia Standing Ord. Last Admin: 12/02/22 03:03 Dose: 25 gm Enoxaparin Sodium (Enoxaparin Sodium 40 Mg/0.4 Ml Syringe) 40 mg SUBCUT Q24H [facility] Last Admin: 12/01/22 21:14 Dose: 40 mg Glucose (Glucose Gel 15 Gm Gel..Gram.) 15 gm PO Q15M PRN; Protocol PRN Reason: per Hypoglycemia Standing Ord. Dextrose/Sodium Chloride (D5ns) 1,000 mls @ 125 mls/hr IVCONT .Q8H [facility] Last Admin: 12/02/22 05:42 Dose: 125 mls/hr Cefepime HCl 2 gm/ Sodium (Chloride) 50 mls @ 100 mls/hr IV Q12H [facility] Last Infusion: 12/01/22 23:18 Dose: Infused Vancomycin HCl 1,250 mg/ (Sodium Chloride) 250 mls @ 166.667 mls/hr IV Q24H [facility] Norepinephrine Bitartrate (Levophed) 8 mg in 250 mls @ 0 mls/hr IV .Q0M [facility]; Protocol Last Titration: 12/02/22 06:01 Dose: 0.21 mcg/kg/min, 30.95 mls/hr Insulin Human Lispro (Insulin Lispro 100 Unit/Ml 3 Ml Vial) 0 unit SUBCUT QIDACHS [facility]; Protocol Last Admin: 12/01/22 21:23 Dose: Not Given Ondansetron HCl (Ondansetron Hcl 4 Mg/2 Ml Vial) 4 mg IVPUSH Q6H PRN PRN Reason: Nausea and Vomiting Oxycodone HCl (Oxycodone Hcl Immed Release 5 Mg Tablet) 10 mg PO Q4H PRN PRN Reason: Pain, Moderate (Pain Scale 4-6 Oxycodone HCl (Oxycodone Hcl Er 10 Mg Tab.Er.12h) 20 mg PO BID [facility] Last Admin: 12/01/22 21:24 Dose: 20 mg Pharmacy Consult (Consult Rx Vancomycin Dosing) 1 each MISCELLANE DAILY PRN PRN Reason: Consult order Pharmacy Consult (Consult Rx Etoh Phenob Im/Po) 1 each MISCELLANE ONCE PRN; Pr otocol PRN Reason: Consult order Phenobarbital (Phenobarbital 15 Mg Tablet) 45 mg PO BID [facility]; Protocol Stop: 12/04/22 09:01 Phenobarbital (Phenobarbital 15 Mg Tablet) 15 mg PO BID [facility]; Protocol Stop: 12/06/22 09:01 Phenobarbital (Phenobarbital 15 Mg Tablet) 15 mg PO DAILY [facility]; Protocol Stop: 12/08/22 09:01 Sodium Chloride (0.9 % Sodium Chloride Flush 3 Ml Syringe) 3 ml IVFLUSH QSNDFT [facility] Last Admin: 12/02/22 00:58 Dose: Not Given Home Medications Medication Instructions Recorded Confirmed Last Taken Type amlodipine 2.5 mg tablet 1 tab PO DAILY 08/12/20 07/19/22 Unknown History baclofen 10 mg tablet 1 tab PO TID 08/12/20 07/19/22 Unknown History blood sugar diagnostic (FreeStyle 08/12/20 07/19/22 Unknown History Lite Strips) bupropion HCl 300 mg 24 hr tablet, 1 tab PO DAILY 08/12/20 07/19/22 Unknown History extended release diclofenac sodium 1 % topical gel 4 g topical TID PRN Pain 08/12/20 07/19/22 Unknown History docusate sodium 100 mg capsule 1 cap PO BID 08/12/20 07/19/22 Unknown History (DOK) furosemide 20 mg tablet 1 tab PO BID PRN Systemic Signs 08/12/20 07/19/22 Unknown History And Symptoms hydroxyzine HCl 25 mg tablet 1 tab PO TID PRN Itching 08/12/20 07/19/22 Unknown History levothyroxine 88 mcg tablet 1 tab PO QAM 08/12/20 07/19/22 Unknown History (Euthyrox) metformin 850 mg tablet 1 tab PO BID 08/12/20 07/19/22 Unknown History omeprazole 20 mg capsule,delayed 1 cap PO DAILY 08/12/20 07/19/22 Unknown History release oxybutynin chloride 10 mg 1 tab PO DAILY 08/12/20 07/19/22 Unknown History tablet,extended release 24 hr oxycodone 20 mg tablet,crush 1 tab PO Q12H 08/12/20 07/19/22 Unknown History resistant,extended release 12 hr (OxyContin) simvastatin 20 mg tablet 1 tab PO BEDTIME 08/12/20 07/19/22 Unknown History venlafaxine 150 mg 1 cap PO DAILY 08/12/20 07/19/22 Unknown History capsule,extended release 24 hr nystatin 100,000 unit/gram topical topical BID PRN 03/06/21 07/19/22 Unknown History cream albuterol sulfate 90 mcg/actuation 0 mcg inhalation 11/08/21 07/19/22 Unknown History aerosol inhaler clotrimazole-betamethasone 1 appl topical BID 11/08/21 07/19/22 Unknown History %-0.05 % topical cream oxycodone 10 mg tablet 10 mg PO Q4H PRN 07/19/22 07/19/22 Unknown History pregabalin 75 mg capsule 75 mg PO BID 10/04/22 Unknown History Physical Exam Vital Signs: Vital Signs: Last Vital Signs Temp 100.6 F H 12/02/22 06:00 Pulse 89 12/02/22 06:01 Resp 21 H 12/02/22 06:00 BP 99/39 L 12/02/22 06:01 Pulse Ox 98 12/02/22 06:00 O2 Del Method 12/02/22 06:00 O2 Flow Rate 2 12/02/22 06:00 BMI result Body Mass Index 31.4 Results Labs 12/01/22 19:24 12/01/22 17:10 Labs: Short CBC 12/01/22 12/01/22 Range/Units 16:33 19:24 WBC 7.0 4.1 L (4.8-10.8) X10*3/uL Hgb 12.8 12.9 (12.0-16.0) g/dl Hct 37.3 38.3 (37.0-47.0) % Plt Count 199 D 178 (160-400) X10*3/uL BMP 12/01/22 17:10 Sodium 130 L Potassium 4.4 Chloride 94 L Carbon Dioxide 23 BUN 30 H Creatinine 1.34 Calcium 8.5 Cardiac Enzymes 12/01/22 Range/Units 17:10 Total Creatine Kinase 146 H (26-140) U/L Liver Function 12/01/22 Range/Units 17:10 Total Bilirubin 0.4 (0.0-1.0) mg/dL Direct Bilirubin 0.2 (0.0-0.5) mg/dL AST 32 H (5-31) U/L ALT 11 (0-31) U/L Alkaline Phosphatase 56 (39-117) U/L Albumin 3.2 L (3.5-5.0) g/dL Urine 12/02/22 Range/Units 03:55 Urine Color Yellow Urine Appearance Clear Urine pH 6.0 (5.0-9.0) Ur Specific [place] 1.020 (1.005-1.025) Urine Protein 30 (1+) H (Neg-Trace) mg/dL Urine Glucose (UA) 100 H (Negative) mg/dL Assessment and Plan Time Spent With Patient Time: Total time managing care of this patient today ____ minutes.
[2022-12-02 06:25] LABS: VBG Base Excess -5.6 mmol/L; VBG HCO3 19 mmol/L (22-26); VBG pCO2 34 mmHg; VBG pH 7.35 (7.32-7.43); VBG pO2 50 mmHg
[2022-12-02 06:27] LABS: Hematocrit 32.4 % (37.0-47.0); Hemoglobin 11.3 g/dl (12.0-16.0); Mean Corpuscular HGB Conc 34.9 g/dl (31.0-35.0); Mean Corpuscular Hemoglobin 32.3 pg (27.0-33.0); Mean Corpuscular Volume 92.6 fL (80.0-98.0); Mean Platelet Volume 9.7 fL (9.4-12.3); Platelet Count 182 X10*3/uL (160-400); Red Cell Distribution Width 14.7 % (11.0-16.0); WBC ABN SCTR FOR CBC 1
[2022-12-02 06:31] LABS: White Blood Count 10.7 X10*3/uL (4.8-10.8)
[2022-12-02 06:37] LABS: Venous Blood Gas Refer to POC result
[2022-12-02 06:40] LABS: Lactic Acid 1.2 mmol/L (0.5-2.0)
[2022-12-02 06:55] LABS: Band Neutrophils Percent 57 % (3-5); Neutrophils Absolute Manual 10.7 X10*3/uL (2.0-8.3); Neutrophils Percent Manual 43 % (45-73)
[2022-12-02 06:57] LABS: Burr Cells 1+ (0-2) /OIF; Dohle Bodies PRESENT; Platelet Estimate NORMAL (NORMAL); Platelet Morphology Comment NORMAL; RBC Morphology NOTED; Toxic Granulation PRESENT; Toxic Vacuolation PRESENT
--- NOTE | 2022-12-02 07:09 | PC.NURSE ---
Assumed care at 330; Patient arrived to unit obtunded and unable to answer any questions or follow commands. Withdraws to pain, very few words, and seemed to say her legs were still in pain. Patient hypotensive, levophed started peripherally per AGRICULTURE MECHANIC while obtaining TLC placement. Right EJ noted to be infiltrated with some bruising around site and mild localized swelling there and distally at right clavicle, and EJ removed per AGRICULTURE MECHANIC. Patient was satting well on 2 LPM with SpO2 97-100%, RR was 22-26; some accessory muscle use noted abdominally and upper scalenes. LS CTA. Patient with hypoactive BS x4, small streaking BM noted. Patient with swelling to lower extremities, R>L, R foot with +3 pitting, bilateral lower legs with taught shiny skin, DP pulses reduced with right side 1+ and left side 2+. Patient has numerous skin issues with right side of neck has bruise and swelling localized as above, left upper arm with scabs intact, bruising to left lower arm, bilateral abdominal folds with reddened excoriation from fungal type rash, and nystatin cream applied per AGRICULTURE MECHANIC. Left lower leg with blisters, one smaller is intact and second larger is ruptured, discussed if needed culture with AGRICULTURE MECHANIC but not at this time, washed area, applied xeroform and abd and kerlix. hands and feet cool to touch. patient appears pale.
[2022-12-02 07:12] LABS: Glucose, Whole Blood 92 mg/dL (60-115)
[2022-12-02 07:14] LABS: Alanine Aminotransferase 12 U/L (0-31); Albumin Level 2.6 g/dL (3.5-5.0); Alkaline Phosphatase 47 U/L (39-117); Anion Gap 16 (12-20); Aspartate Amino Transferase 42 U/L (5-31); Bilirubin Total 0.4 mg/dL (0.0-1.0); Blood Urea Nitrogen 28 mg/dL (9-16); Calcium 7.3 mg/dL (8.4-10.2); Carbon Dioxide 17 mmol/L (22-29); Chloride 104 mmol/L (96-108); Creatinine Clr Calc Pharmacy 58.8; Estimated Glomerular Filt Rate 55; Glucose Fasting 107 mg/dL (60-99); Magnesium 1.4 mg/dL (1.6-2.6); Potassium 3.7 mmol/L (3.3-5.1); Sodium 133 mmol/L (135-145); Total Protein 4.4 g/dL (6.5-8.0)
[2022-12-02] MEDS: 0.9 % Sodium Chloride Flush 3 ML SYRINGE IVFLUSH ×3 (07:49→23:40)
[2022-12-02] MEDS: Magnesium Sulfate/H2O 2 GM/50 ML PIGGYBACK IV (07:49)
[2022-12-02] MEDS: Albumin Human 25 % 100 ML IV ×2 (07:55→09:10)
[2022-12-02] MEDS: cefEPime HCl 2 GM in 0.9 % Sodium Chloride 50 ML IV (08:04)
[2022-12-02] MEDS: Dextrose 10 % 1,000 ML 50 ML IVCONT ×2 (09:17→23:40)
[2022-12-02 11:19] LABS: Glucose, Whole Blood 115 mg/dL (60-115)
[2022-12-02] MEDS: Norepinephrine Bitartrate/D5W 8 MG/250 ML PLAST..BAG 30.95 MG IV (11:40)
[2022-12-02 12:21] LABS: Albumin Level 3.2 g/dL (3.5-5.0); Anion Gap 15 (12-20); Blood Urea Nitrogen 23 mg/dL (9-16); Calcium 7.6 mg/dL (8.4-10.2); Carbon Dioxide 18 mmol/L (22-29); Chloride 104 mmol/L (96-108); Creatinine Clr Calc Pharmacy 68.9; Estimated Glomerular Filt Rate > 60; Glucose Random 112 mg/dL (60-115); Magnesium 1.8 mg/dL (1.6-2.6); Potassium 3.7 mmol/L (3.3-5.1); Sodium 133 mmol/L (135-145)
[2022-12-02] MEDS: fentaNYL citrate/PF 100 MCG/2 ML VIAL 50 MCG IVPUSH ×3 (14:05→23:52)
[2022-12-02] MEDS: Acetaminophen 325 MG TABLET 650 MG PO (15:36)
[2022-12-02 16:35] LABS: Glucose, Whole Blood 79 mg/dL (60-115)
[2022-12-02] MEDS: Enoxaparin Sodium 40 MG/0.4 ML SYRINGE SUBCUT (17:45)
[2022-12-02] MEDS: cefTRIAXone sodium 1 GM in 0.9 % Sodium Chloride 50 ML IV (17:45)
[2022-12-02 19:51] LABS: Glucose, Whole Blood 61 mg/dL (60-115)
[2022-12-02 21:46] LABS: Glucose, Whole Blood 117 mg/dL (60-115)
[2022-12-02] MEDS: Norepinephrine Bitartrate/D5W 8 MG/250 ML PLAST..BAG 19.16 MG IV (23:40)
[2022-12-02 23:57] LABS: Glucose, Whole Blood 131 mg/dL (60-115)
[2022-12-03] VITALS (29 sets, daily range): BP systolic 94–130; BP diastolic 43–63; PULSE 77–106; RESP 12–28; TEMP 36.7–38.9; O2SAT 2–100; BMI 32.4
[2022-12-03] MEDS: Acetaminophen 325 MG TABLET 650 MG PO ×3 (00:27→22:12)
[2022-12-03 05:20] LABS: VBG Base Excess -1.3 mmol/L; VBG HCO3 22 mmol/L (22-26); VBG pCO2 34 mmHg; VBG pH 7.42 (7.32-7.43); VBG pO2 53 mmHg
[2022-12-03 05:43] LABS: Hematocrit 30.5 % (37.0-47.0); Hemoglobin 10.7 g/dl (12.0-16.0); Mean Corpuscular HGB Conc 35.1 g/dl (31.0-35.0); Mean Corpuscular Hemoglobin 32.5 pg (27.0-33.0); Mean Corpuscular Volume 92.7 fL (80.0-98.0); Mean Platelet Volume 10.2 fL (9.4-12.3); Platelet Count 125 X10*3/uL (160-400); Red Blood Count 3.29 X10*6/uL (4.20-5.50); Red Cell Distribution Width 14.6 % (11.0-16.0)
[2022-12-03 05:46] LABS: WBC ABN SCTR FOR CBC 1; White Blood Count 14.8 X10*3/uL (4.8-10.8)
[2022-12-03 05:48] LABS: Venous Blood Gas Refer to POC result
[2022-12-03 06:21] LABS: Alanine Aminotransferase 15 U/L (0-31); Alkaline Phosphatase 99 U/L (39-117); Anion Gap 16 (12-20); Aspartate Amino Transferase 33 U/L (5-31); Bilirubin Total 0.4 mg/dL (0.0-1.0); Blood Urea Nitrogen 14 mg/dL (9-16); Carbon Dioxide 19 mmol/L (22-29); Chloride 100 mmol/L (96-108); Estimated Glomerular Filt Rate > 60; Glucose Fasting 155 mg/dL (60-99); Glucose Random 155 mg/dL (60-115); Magnesium 1.6 mg/dL (1.6-2.6); Phosphorus 1.6 mg/dL (2.7-4.5); Potassium 3.1 mmol/L (3.3-5.1); Sodium 132 mmol/L (135-145); Total Protein 4.6 g/dL (6.5-8.0)
[2022-12-03 06:30] LABS: Band Neutrophils Percent 4 % (3-5); Lymphocytes Absolute Manual 0.4 X10*3/uL (1.2-4.9); Lymphocytes Percent Manual 3 % (20-40); Macrocytosis 1+ (5-14) /OIF; Monocytes Absolute Manual 0.6 X10*3/uL (0.1-1.2); Monocytes Percent Manual 4 % (2-11); Neutrophils Absolute Manual 13.8 X10*3/uL (2.0-8.3); Neutrophils Percent Manual 89 % (45-73); Platelet Estimate NORMAL (NORMAL); Platelet Morphology Comment NORMAL; RBC Morphology NOTED
[2022-12-03 06:31] LABS: Burr Cells 1+ (0-2) /OIF; Dohle Bodies PRESENT; Polychromasia 1+ (0-2) /OIF; Target Cells 1+ (5-14) /OIF; Toxic Granulation PRESENT; Toxic Vacuolation PRESENT
--- NOTE | 2022-12-03 07:00 | CA_ITS ---
Transthoracic Echocardiogram Patient (Last, First, Middle): Evelyne Claudio M Gender: Female Date of : 1960 Age: 62 Procedure Date: 12/03/2022 Procedure Type: Transthoracic Echocardiogram Location: ICU Height: 160.02 cm Weight: 83.01 kg BSA: 1.86 m2 Heart Rate: 83 bpm BP: 98 / 53 mmHg Barrel Filler: JOYA Referring MD: Roxane Michaels [employer] MACHINE ADJUSTER Jewelry Manager: Ryne Taylor MD Symptoms: Assess cardiac function Study Quality: Adequate ECG Rhythm: Sinus Conclusions: - 1. Normal LV systolic and diastolic function based on traditional parameters 2. Normal cardiac valvular Doppler 3. Normal RV systolic pressure 4. No gross pericardial effusion Findings Left Ventricle Normal left ventricular size, thickness, and systolic function. The visually estimated ejection fraction is between 55-60%. Spectral Doppler is indicative of a normal filling pattern. Peak GLS is -14.3%, which is reduced Right Ventricle Normal right ventricular cavity size and systolic function. Atria The left atrium is likely dilated. There is no evidence of interatrial shunt. The right atrium is normal in size. Aortic Valve The aortic valve structure and function is likely normal. There is no aortic valve stenosis. There is no aortic valve regurgitation. Mitral Valve Normal mitral valve structure and function. There is trace mitral valve regurgitation. There is no mitral valve stenosis. Pulmonic Valve The pulmonic valve was not well visualized. Tricuspid Valve Likely normal tricuspid valve structure and function. There is trace tricuspid valve regurgitation. The right ventricular systolic pressure is normal. The right ventricular systolic pressure is 33 mmHg. Normal right atrial pressure. There is no evidence of pulmonary hypertension. Great Vessels All visible segments of the aorta are normal in size. The pulmonary artery was not well visualized. Venous The inferior vena cava is normal in size and collapses greater than 50% with inspiration. Pericardium/Pleural There is no evidence of pericardial effusion. Prior Study Comparison No prior study available for comparison. Measurements 2D Linear Measurements IVSd: 0.81 0.6-0.9/0.6-1.0 cm LVIDd: 4.68 3.9-5.3/4.2-5.9 cm LVIDd Index: 2.52 2.4-3.2/2.2-3.1 cm/m2 LVIDs: 3.47 2.0-3.6 cm LVPWd: 0.73 0.7-1.1 cm LA Diam: 3.50 2.7-3.8/3.0-4.0 cm LAIDs Index: 1.88 1.5-2.3 cm/m2 LV Mass: 144.15 67-162/88-224 g LV Mass Index: 77.50 43-95/49-115 g/m2 LVOT Diam: 2.00 3.0+(-)1.3 cm 2D Systolic Function EF 4C: 51.20 >55% EF 2C: 55.60 >55% Mitral Valve MV Pk E: 0.70 MV PK A: 0.57 MV Decel Time: 211.00 E/A: 1.20 E'Lateral: 13.60 E'Medial: 9.36 E/E' Med: 7.50 E/E' Lat: 5.20 PHT: 62.00 MVA PHT: 3.55 Decel Harper: 3.33 Aortic Valve AoV Pk Mamadou: 1.48 AoV Pk Grad: 9.00 LYNNE: 2.57 LVOT LVOT Pk Mamadou: 1.21 LVOT Mn Mamadou: 0.81 LVOT VTI: 0.21 LVOT Pk Grad: 6.00 LVOT Mn Grad: 3.00 LVOT Diam: 2.00 LVOT Area: 3.14 Diastolic Function MV Pk E: 0.70 MV Pk A: 0.57 E/A: 1.20 E'Medial: 9.36 E/E' Med: 7.50 E' Laterial: 13.60 E/E' Lat: 5.20 Right Ventricle TAPSE (mm): 19.80 TVS' Mamadou: 13.60 Tricuspid Valve TR Pk Mamadou: 2.49 TR Pk Grad: 25.00 RA Press: 8.00 RVSP: 33.00 Great Vessels Aorta Sinus of Valsalva: 2.70 2.0-3.5 cm Ao Asc: 2.60 2.1-3.4 cm Pulmonary Veins Pulm Vein S/D 1.30 Pulmonary Valve PV Pk Mamadou: 0.99 Peak PV Grad: 4.00 Updated in Other Vendor System with Status of Final Ryne Taylor MD electronically signed on 12/03/2022 12:15:30 PM with status of Final
[2022-12-03 07:26] LABS: Glucose, Whole Blood 161 mg/dL (60-115)
[2022-12-03] MEDS: Potassium Chloride Packet 20 MEQ PACKET 40 MEQ PO (07:45)
[2022-12-03] MEDS: Insulin Lispro 100 UNIT/ML 3 ML VIAL SUBCUT (07:45)
[2022-12-03] MEDS: 0.9 % Sodium Chloride Flush 3 ML SYRINGE IVFLUSH ×2 (07:46→16:15)
[2022-12-03] MEDS: Magnesium Sulfate/D5W 1 GM/100 ML PIGGYBACK IV (07:53)
[2022-12-03] MEDS: fentaNYL citrate/PF 100 MCG/2 ML VIAL 50 MCG IVPUSH ×5 (07:55→22:13)
[2022-12-03] MEDS: Potassium Phosphate/NS 15 MMOL/250 ML PLAST..BAG 62.5 MMOL IV (07:58)
--- NOTE | 2022-12-03 11:19 | PM.CCPN ---
Subjective Subjective Date of Service: 12/03/22 Interval History: 62-year-old lady with underlying history of rheumatoid arthritis on Plaquenil, pulmonary embolism previously on anticoagulation, status post knee replacement, alcohol abuse admitted on 12/01/2022 with streptococcal bacteremia with cellulitic source requiring vasopressor support. No events overnight. Pressor requirements improving. Critical Care Time (minutes): 45 Physical Exam Vital Signs: Vital Signs: Last Vital Signs Temp 98.4 F 12/03/22 11:00 Pulse 87 12/03/22 11:00 Resp 22 H 12/03/22 11:00 BP 101/53 L 12/03/22 11:00 Pulse Ox 2 L 12/03/22 11:00 O2 Del Method 12/03/22 11:00 O2 Flow Rate 2 12/03/22 11:00 BMI result Body Mass Index 32.4 Const: General: no acute distress, alert and awake Nutritional Appearance: obese and Edematous Eyes: Sclerae: sclerae normal EOM: EOMs intact bilaterally Neck: Neck: Yes no lymphadenopathy, Yes trachea midline and Yes supple Resp: Effort & Inspection: normal respiratory effort and no respiratory distress Auscultation: crackles (Mild bilateral) Cardio: Rate: regular rate Rhythm: regular rhythm Heart sounds: no gallops, no murmurs and no rubs GI: Palpation (GI): Soft to palpation and Other GI palpation findings present ( Nontender) Auscultation: normal bowel sounds Extrem: General: No clubbing, No cyanosis, Yes edema (1+ bilateral) and Yes other (Indurated cellulitic rash of lower extremities) Objective Data Labs 12/03/22 05:05 12/03/22 05:05 Labs: Laboratory Results - last 24 hr 12/02/22 12/02/22 12/02/22 11:16 11:51 16:32 WBC RBC Hgb Hct MCV MCH MCHC RDW Plt Count MPV Immature Gran % (Auto) Neut % (Auto) Lymph % (Auto) [place] % (Auto) Eos % (Auto) Baso % (Auto) Lymph # (Auto) [place] # (Auto) Eos # (Auto) Baso # (Auto) Abs Immat Gran (auto) Absolute Neuts (auto) Absolute Nucleated RBC Nucleated RBC % (auto) Neutrophils % (Manual) Band Neutrophils % Lymphocytes % (Manual) Monocytes % (Manual) Abs Neuts (Manual) Lymphocytes # (Manual) Monocytes # (Manual) Toxic Granulation Toxic Vacuolation Dohle Bodies Platelet Estimate Plt Morphology Comment RBC Morphology Polychromasia Macrocytosis Target Cells [place] Cells VBG pH VBG pCO2 VBG pO2 VBG HCO3 VBG O2 Saturation VBG Base Excess Sodium 133 L Potassium 3.7 Chloride 104 Carbon Dioxide 18 L Anion Gap 15 BUN 23 H Creatinine 0.87 Estim Creat Clear Calc 68.9 Estimated GFR > 60 POC Glucose 115 79 Random Glucose 112 Fasting Glucose Calcium 7.6 L Phosphorus Magnesium 1.8 Total Bilirubin AST ALT Alkaline Phosphatase Total Protein Albumin 3.2 L 12/02/22 12/02/22 12/02/22 19:47 21:43 23:41 WBC RBC Hgb Hct MCV MCH MCHC RDW Plt Count MPV Immature Gran % (Auto) Neut % (Auto) Lymph % (Auto) [place] % (Auto) Eos % (Auto) Baso % (Auto) Lymph # (Auto) [place] # (Auto) Eos # (Auto) Baso # (Auto) Abs Immat Gran (auto) Absolute Neuts (auto) Absolute Nucleated RBC Nucleated RBC % (auto) Neutrophils % (Manual) Band Neutrophils % Lymphocytes % (Manual) Monocytes % (Manual) Abs Neuts (Manual) Lymphocytes # (Manual) Monocytes # (Manual) Toxic Granulation Toxic Vacuolation Dohle Bodies Platelet Estimate Plt Morphology Comment RBC Morphology Polychromasia Macrocytosis Target Cells [place] Cells VBG pH VBG pCO2 VBG pO2 VBG HCO3 VBG O2 Saturation VBG Base Excess Sodium Potassium Chloride Carbon Dioxide Anion Gap BUN Creatinine Estim Creat Clear Calc Estimated GFR POC Glucose 61 117 H 131 H Random Glucose Fasting Glucose Calcium Phosphorus Magnesium Total Bilirubin AST ALT Alkaline Phosphatase Total Protein Albumin 12/03/22 12/03/22 12/03/22 05:05 05:05 05:05 WBC Cancelled 14.8 H RBC Cancelled 3.29 L Hgb Cancelled 10.7 L Hct Cancelled 30.5 L MCV Cancelled 92.7 MCH Cancelled 32.5 MCHC Cancelled 35.1 H RDW Cancelled 14.6 Plt Count Cancelled 125 L D MPV Cancelled 10.2 Immature Gran % (Auto) Cancelled Cancelled Neut % (Auto) Cancelled Cancelled Lymph % (Auto) Cancelled Cancelled [place] % (Auto) Cancelled Cancelled Eos % (Auto) Cancelled Cancelled Baso % (Auto) Cancelled Cancelled Lymph # (Auto) Cancelled Cancelled [place] # (Auto) Cancelled Cancelled Eos # (Auto) Cancelled Cancelled Baso # (Auto) Cancelled Cancelled Abs Immat Gran (auto) Cancelled Cancelled Absolute Neuts (auto) Cancelled Cancelled Absolute Nucleated RBC Cancelled 0.000 Nucleated RBC % (auto) Cancelled 0.0 Neutrophils % (Manual) 89 H Band Neutrophils % 4 Lymphocytes % (Manual) 3 L Monocytes % (Manual) 4 Abs Neuts (Manual) 13.8 H Lymphocytes # (Manual) 0.4 L Monocytes # (Manual) 0.6 Toxic Granulation PRESENT Toxic Vacuolation PRESENT Dohle Bodies PRESENT Platelet Estimate NORMAL Plt Morphology Comment NORMAL RBC Morphology NOTED Polychromasia 1+ (0-2) Macrocytosis 1+ (5-14) Target Cells 1+ (5-14) [place] Cells 1+ (0-2) VBG pH VBG pCO2 VBG pO2 VBG HCO3 VBG O2 Saturation VBG Base Excess Sodium 132 L Potassium 3.1 L Chloride 100 Carbon Dioxide 19 L Anion Gap 16 BUN 14 Creatinine 0.71 Estim Creat Clear Calc 86.0 Estimated GFR > 60 POC Glucose Random Glucose 155 H Fasting Glucose 155 H Calcium 8.0 L Phosphorus 1.6 L Magnesium 1.6 Total Bilirubin 0.4 AST 33 H ALT 15 Alkaline Phosphatase 99 Total Protein 4.6 L Albumin 3.0 L 12/03/22 12/03/22 05:13 07:23 WBC RBC Hgb Hct MCV MCH MCHC RDW Plt Count MPV Immature Gran % (Auto) Neut % (Auto) Lymph % (Auto) [place] % (Auto) Eos % (Auto) Baso % (Auto) Lymph # (Auto) [place] # (Auto) Eos # (Auto) Baso # (Auto) Abs Immat Gran (auto) Absolute Neuts (auto) Absolute Nucleated RBC Nucleated RBC % (auto) Neutrophils % (Manual) Band Neutrophils % Lymphocytes % (Manual) Monocytes % (Manual) Abs Neuts (Manual) Lymphocytes # (Manual) Monocytes # (Manual) Toxic Granulation Toxic Vacuolation Dohle Bodies Platelet Estimate Plt Morphology Comment RBC Morphology Polychromasia Macrocytosis Target Cells [place] Cells VBG pH 7.42 VBG pCO2 34 VBG pO2 53 VBG HCO3 22 VBG O2 Saturation 81.0 VBG Base Excess -1.3 Sodium Potassium Chloride Carbon Dioxide Anion Gap BUN Creatinine Estim Creat Clear Calc Estimated GFR POC Glucose 161 H Random Glucose Fasting Glucose Calcium Phosphorus Magnesium Total Bilirubin AST ALT Alkaline Phosphatase Total Protein Albumin Microbiology Microbiology Results: Microbiology 12/01/22 16:32 Blood - Venous Blood Culture - Preliminary Streptococcus pyogenes (Grp A) 12/01/22 17:10 Blood - Venous Blood Culture - Preliminary Streptococcus pyogenes (Grp A) Progress Note: A&P Assessment and plan (1) Streptococcal bacteremia: Status: Acute (2) RICARDO (acute kidney injury): Status: Acute (3) Rheumatoid arthritis: Status: Acute (4) Long-term use of hydroxychloroquine: Status: Acute (5) Alcohol abuse: Status: Acute Plan Assessment: 62-year-old lady with underlying rheumatoid arthritis on Plaquenil and alcohol abuse admitted with streptococcal bacteremia with a cellulitic source requiring vasopressor support. Plan: Neuro: No acute issues. Underlying history of alcohol abuse, monitor for withdrawal symptoms. Cardiac: Septic shock, continue to titrate off pressors as tolerated. 2D echocardiogram is pending. Pulmonary: No acute issues. Renal: Acute renal failure secondary to sepsis, improved. Non oliguric. Continue to monitor renal indices and urine output. Endo: No acute issues. GI: No acute issues. ID: Streptococcal bacteremia with cellulitic source. Continue ceftriaxone for total of 14 days. Heme/Onc: No acute issues. Psych: No acute issues. Miscellaneous: No acute issues. Prophylaxis: Heparin Diet: Regular Critical care time spent: 45 minutes Quality Stroke Does the patient have a stroke diagnosis?: No VTE Prior VTE?: No VTE Risk Level:: Medical - moderate - high VTE Device Contraindication: Treatment Not Indicated VTE Drug Contraindication: N/A - Med Ordered
[2022-12-03 12:03] LABS: Glucose, Whole Blood 99 mg/dL (60-115)
[2022-12-03] MEDS: Norepinephrine Bitartrate/D5W 8 MG/250 ML PLAST..BAG 13.26 MG IV (16:15)
--- NOTE | 2022-12-03 16:20 | MHC.CM.PN ---
Attempted to meet with pt to discuss d/c planning: pt having dx testing done; will revisit on 12/04.
[2022-12-03 16:24] LABS: Glucose, Whole Blood 113 mg/dL (60-115)
[2022-12-03 18:27] LABS: Vancomycin Trough 3.3 mcg/mL (10.0-20.0)
[2022-12-03] MEDS: cefTRIAXone sodium 1 GM in 0.9 % Sodium Chloride 50 ML IV (18:44)
[2022-12-03] MEDS: Enoxaparin Sodium 40 MG/0.4 ML SYRINGE SUBCUT (19:10)
[2022-12-03] MEDS: Dextrose 10 % 1,000 ML 50 ML IVCONT (19:10)
[2022-12-03 20:29] LABS: Glucose, Whole Blood 147 mg/dL (60-115)
[2022-12-03] MEDS: Melatonin 3 MG TABLET 6 MG PO (22:12)
[2022-12-04] VITALS (27 sets, daily range): BP systolic 94–132; BP diastolic 47–83; PULSE 73–103; RESP 14–21; TEMP 35.5–37.4; O2SAT 94–100; BMI 30.4
[2022-12-04] MEDS: fentaNYL citrate/PF 100 MCG/2 ML VIAL 50 MCG IVPUSH ×5 (00:14→13:32)
[2022-12-04 05:08] LABS: VBG Base Excess 1.3 mmol/L; VBG HCO3 25 mmol/L (22-26); VBG pCO2 40 mmHg; VBG pH 7.41 (7.32-7.43); VBG pO2 44 mmHg
[2022-12-04 05:38] LABS: Hemoglobin 10.5 g/dl (12.0-16.0); PLT CLUMP 1
[2022-12-04 05:40] LABS: Hematocrit 29.6 % (37.0-47.0); Mean Corpuscular HGB Conc 35.5 g/dl (31.0-35.0); Mean Corpuscular Hemoglobin 32.3 pg (27.0-33.0); Mean Corpuscular Volume 91.1 fL (80.0-98.0); Red Blood Count 3.25 X10*6/uL (4.20-5.50); Red Cell Distribution Width 14.3 % (11.0-16.0)
[2022-12-04 05:45] LABS: White Blood Count 20.6 X10*3/uL (4.8-10.8)
[2022-12-04 06:02] LABS: Alanine Aminotransferase 15 U/L (0-31); Albumin Level 2.7 g/dL (3.5-5.0); Alkaline Phosphatase 176 U/L (39-117); Anion Gap 16 (12-20); Aspartate Amino Transferase 21 U/L (5-31); Bilirubin Total 0.5 mg/dL (0.0-1.0); Blood Urea Nitrogen 11 mg/dL (9-16); Calcium 8.1 mg/dL (8.4-10.2); Carbon Dioxide 20 mmol/L (22-29); Chloride 104 mmol/L (96-108); Creatinine Clr Calc Pharmacy 107.4; Estimated Glomerular Filt Rate > 60; Glucose Fasting 121 mg/dL (60-99); Glucose Random 122 mg/dL (60-115); Magnesium 1.6 mg/dL (1.6-2.6); Phosphorus 1.7 mg/dL (2.7-4.5); Potassium 3.1 mmol/L (3.3-5.1); Sodium 137 mmol/L (135-145); Total Protein 4.4 g/dL (6.5-8.0)
[2022-12-04 06:16] LABS: Band Neutrophils Percent 2 % (3-5); Lymphocytes Absolute Manual 0.6 X10*3/uL (1.2-4.9); Lymphocytes Percent Manual 3 % (20-40); Monocytes Absolute Manual 0.8 X10*3/uL (0.1-1.2); Monocytes Percent Manual 4 % (2-11); Neutrophils Absolute Manual 19.2 X10*3/uL (2.0-8.3); Neutrophils Percent Manual 91 % (45-73); RBC Morphology NOTED
[2022-12-04 06:18] LABS: Burr Cells 3+ (>5) /OIF; Dohle Bodies PRESENT; Toxic Granulation PRESENT
[2022-12-04 06:19] LABS: Large Platelet PRESENT; Platelet Estimate DECREASED (NORMAL); Platelet Morphology Comment NOTED; Toxic Vacuolation PRESENT
--- NOTE | 2022-12-04 06:33 | PC.NURSE ---
Addendum entered by Lianna Golden RN 12/04/22 06:59: ORDERS FOR PT&OT PLACED - PATIENT REQUESTED, EDUCATION PROVIDED PRN FENTANYL ADMINISTERED FOR 06/06 GENREALIZED PAIN AT 0654 - EFFECTS PENDINIG PATIENT ALLOWED FOR REPOSTIONING AT THIS TIME Original Note: FROM [id number]: PATIENT C/O GENERALIZED PAIN 05/06 - PRN FENTANYL ADMINISTERED WITH POSITIVE EFFECT AT 0501 PATIENT REFUSED REPOSITIONING, BATH, AND DRESSING CHANGE - EDUCATION AND ENCOURAGEMENT PROVIDED
[2022-12-04 06:44] LABS: Mean Platelet Volume 10.6 fL (9.4-12.3); Platelet Count 72 X10*3/uL (160-400)
[2022-12-04] MEDS: Acetaminophen 325 MG TABLET 650 MG PO ×2 (06:53→22:43)
[2022-12-04 07:20] LABS: Glucose, Whole Blood 137 mg/dL (60-115)
[2022-12-04] MEDS: 0.9 % Sodium Chloride Flush 3 ML SYRINGE IVFLUSH ×3 (07:29→20:45)
[2022-12-04] MEDS: Potassium Phosphate/NS 15 MMOL/250 ML PLAST..BAG 62.5 MMOL IV ×2 (08:44→13:31)
[2022-12-04] MEDS: Albumin Human 25 % 100 ML IV ×3 (08:44→20:44)
[2022-12-04] MEDS: Furosemide 40 MG/4 ML VIAL IVPUSH (08:44)
[2022-12-04] MEDS: Potassium Chloride/H20 40 MEQ/100 ML PIGGYBACK 100 MEQ IV (08:44)
[2022-12-04 09:07] LABS: Venous Blood Gas Refer to POC result
--- NOTE | 2022-12-04 10:54 | PM.CCPN ---
Subjective Subjective Date of Service: 12/04/22 Interval History: 62-year-old lady with underlying history of rheumatoid arthritis on Plaquenil, pulmonary embolism previously on anticoagulation, status post knee replacement, alcohol abuse admitted on 12/01/2022 with streptococcal bacteremia with cellulitic source requiring vasopressor support. No events overnight. Titrated off vasopressors. Lower extremity edema is improving with diuresis. Critical Care Time (minutes): 45 Physical Exam Vital Signs: Vital Signs: Last Vital Signs Temp 98.6 F 12/04/22 10:00 Pulse 86 12/04/22 10:40 Resp 16 12/04/22 10:00 BP 109/57 L 12/04/22 10:40 Pulse Ox 98 12/04/22 10:40 O2 Del Method 12/04/22 10:00 O2 Flow Rate 2 12/04/22 08:00 BMI result Body Mass Index 30.4 Const: General: no acute distress, alert and awake Nutritional Appearance: Edematous Eyes: Sclerae: sclerae normal EOM: EOMs intact bilaterally Neck: Neck: Yes no lymphadenopathy, Yes trachea midline and Yes supple Resp: Effort & Inspection: normal respiratory effort and no respiratory distress Auscultation: crackles (Bibas[place]) Cardio: Rate: regular rate Rhythm: regular rhythm Heart sounds: no gallops, no murmurs and no rubs GI: Palpation (GI): Soft to palpation and Other GI palpation findings present ( Nontender) Auscultation: normal bowel sounds Extrem: General: No clubbing, No cyanosis and Yes edema (2+ taut bilateral) Objective Data Labs 12/04/22 04:55 12/04/22 04:55 Labs: Laboratory Results - last 24 hr 12/03/22 12/03/22 12/03/22 11:58 16:20 17:57 WBC RBC Hgb Hct MCV MCH MCHC RDW Plt Count MPV Immature Gran % (Auto) Neut % (Auto) Lymph % (Auto) [place] % (Auto) Eos % (Auto) Baso % (Auto) Lymph # (Auto) [place] # (Auto) Eos # (Auto) Baso # (Auto) Abs Immat Gran (auto) Absolute Neuts (auto) Absolute Nucleated RBC Nucleated RBC % (auto) Neutrophils % (Manual) Band Neutrophils % Lymphocytes % (Manual) Monocytes % (Manual) Abs Neuts (Manual) Lymphocytes # (Manual) Monocytes # (Manual) Toxic Granulation Toxic Vacuolation Dohle Bodies Platelet Estimate Large Platelets Plt Morphology Comment RBC Morphology [place] Cells VBG pH VBG pCO2 VBG pO2 VBG HCO3 VBG O2 Saturation VBG Base Excess Sodium Potassium Chloride Carbon Dioxide Anion Gap BUN Creatinine Estim Creat Clear Calc Estimated GFR POC Glucose 99 113 Random Glucose Fasting Glucose Calcium Phosphorus Magnesium Total Bilirubin AST ALT Alkaline Phosphatase Total Protein Albumin Vancomycin Trough 3.3 L 12/03/22 12/04/22 12/04/22 20:25 04:55 04:55 WBC 20.6 H RBC 3.25 L Hgb 10.5 L Hct 29.6 L MCV 91.1 MCH 32.3 MCHC 35.5 H RDW 14.3 Plt Count 72 L D MPV 10.6 Immature Gran % (Auto) Cancelled Neut % (Auto) Cancelled Lymph % (Auto) Cancelled [place] % (Auto) Cancelled Eos % (Auto) Cancelled Baso % (Auto) Cancelled Lymph # (Auto) Cancelled [place] # (Auto) Cancelled Eos # (Auto) Cancelled Baso # (Auto) Cancelled Abs Immat Gran (auto) Cancelled Absolute Neuts (auto) Cancelled Absolute Nucleated RBC 0.000 Nucleated RBC % (auto) 0.0 Neutrophils % (Manual) 91 H Band Neutrophils % 2 L Lymphocytes % (Manual) 3 L Monocytes % (Manual) 4 Abs Neuts (Manual) 19.2 H Lymphocytes # (Manual) 0.6 L Monocytes # (Manual) 0.8 Toxic Granulation PRESENT Toxic Vacuolation PRESENT Dohle Bodies PRESENT Platelet Estimate DECREASED Large Platelets PRESENT Plt Morphology Comment NOTED RBC Morphology NOTED [place] Cells 3+ (>5) VBG pH VBG pCO2 VBG pO2 VBG HCO3 VBG O2 Saturation VBG Base Excess Sodium 137 Potassium 3.1 L Chloride 104 Carbon Dioxide 20 L Anion Gap 16 BUN 11 Creatinine 0.55 Estim Creat Clear Calc 107.4 Estimated GFR > 60 POC Glucose 147 H Random Glucose 122 H Fasting Glucose 121 H Calcium 8.1 L Phosphorus 1.7 L Magnesium 1.6 Total Bilirubin 0.5 AST 21 ALT 15 Alkaline Phosphatase 176 H Total Protein 4.4 L Albumin 2.7 L Vancomycin Trough 12/04/22 12/04/22 12/04/22 04:55 05:00 07:14 WBC Cancelled RBC Cancelled Hgb Cancelled Hct Cancelled MCV Cancelled MCH Cancelled MCHC Cancelled RDW Cancelled Plt Count Cancelled MPV Cancelled Immature Gran % (Auto) Cancelled Neut % (Auto) Cancelled Lymph % (Auto) Cancelled [place] % (Auto) Cancelled Eos % (Auto) Cancelled Baso % (Auto) Cancelled Lymph # (Auto) Cancelled [place] # (Auto) Cancelled Eos # (Auto) Cancelled Baso # (Auto) Cancelled Abs Immat Gran (auto) Cancelled Absolute Neuts (auto) Cancelled Absolute Nucleated RBC Cancelled Nucleated RBC % (auto) Cancelled Neutrophils % (Manual) Band Neutrophils % Lymphocytes % (Manual) Monocytes % (Manual) Abs Neuts (Manual) Lymphocytes # (Manual) Monocytes # (Manual) Toxic Granulation Toxic Vacuolation Dohle Bodies Platelet Estimate Large Platelets Plt Morphology Comment RBC Morphology [place] Cells VBG pH 7.41 VBG pCO2 40 VBG pO2 44 VBG HCO3 25 VBG O2 Saturation 70.0 VBG Base Excess 1.3 Sodium Potassium Chloride Carbon Dioxide Anion Gap BUN Creatinine Estim Creat Clear Calc Estimated GFR POC Glucose 137 H Random Glucose Fasting Glucose Calcium Phosphorus Magnesium Total Bilirubin AST ALT Alkaline Phosphatase Total Protein Albumin Vancomycin Trough Microbiology Microbiology Results: Microbiology 12/01/22 17:10 Blood - Venous Blood Culture - Final Streptococcus pyogenes (Grp A) 12/01/22 16:32 Blood - Venous Blood Culture - Final Streptococcus pyogenes (Grp A) Progress Note: A&P Assessment and plan (1) Alcohol abuse: Status: Acute (2) Streptococcal bacteremia: Status: Acute (3) RICARDO (acute kidney injury): Status: Acute (4) Rheumatoid arthritis: Status: Acute (5) Long-term use of hydroxychloroquine: Status: Acute (6) Diabetes: Status: Acute Plan Assessment: 62-year-old lady with underlying rheumatoid arthritis on Plaquenil and alcohol abuse admitted with streptococcal bacteremia with a cellulitic source requiring vasopressor support. Plan: Neuro: No acute issues. Underlying history of alcohol abuse, monitor for withdrawal symptoms. Cardiac: Septic shock, resolved. 2D echocardiogram is normal. Pulmonary: Pulmonary edema secondary resuscitation of underlying sepsis improving with diuretic. Renal: Acute renal failure secondary to sepsis, improved. Non oliguric. Continue to monitor renal indices and urine output. Endo: No acute issues. GI: No acute issues. ID: Streptococcal bacteremia with cellulitic source. Continue ceftriaxone for total of 14 days. Heme/Onc: No acute issues. Psych: No acute issues. Miscellaneous: No acute issues. Prophylaxis: Heparin Diet: Regular Critical care time spent: 45 minutes At this time patient is stable for transfer to telemetry avery. Quality Stroke Does the patient have a stroke diagnosis?: No VTE Prior VTE?: No VTE Risk Level:: Medical - moderate - high VTE Device Contraindication: Treatment Not Indicated VTE Drug Contraindication: N/A - Med Ordered
[2022-12-04 11:28] LABS: Glucose, Whole Blood 132 mg/dL (60-115)
--- NOTE | 2022-12-04 12:09 | MHC.CM.PN ---
This database report writer met with patient for CM assessment. Awake, appropriate for conversation. From home, no services prior to admission. Verified PCP- Cayla Peñaloza. Has family supports. Vax'd. Family to transport @ d/c. Open to VNA @ d/c as appropraite- patient prefers [facility] as she has had in the past. IMM delivered.
--- NOTE | 2022-12-04 13:43 | PM.EVENT ---
Event Note Date of Service: 12/04/22 Event Note: Chart reviewed patient examined. Call placed to patient's PCP office (Cayla Peñaloza) who verify dosing of oxycodone and OxyContin. Patient has a narcotics contract and close follow-up of counts. Time Spent With Patient Time: Total time managing care of this patient today ____ minutes.
[2022-12-04] MEDS: HYDROmorphone HCl 1 MG/ML SYRINGE IVPUSH (15:12)
[2022-12-04 16:31] LABS: Glucose, Whole Blood 98 mg/dL (60-115)
[2022-12-04] MEDS: Enoxaparin Sodium 40 MG/0.4 ML SYRINGE SUBCUT (18:39)
[2022-12-04] MEDS: cefTRIAXone sodium 1 GM in 0.9 % Sodium Chloride 50 ML IV (18:39)
[2022-12-04 20:37] LABS: Glucose, Whole Blood 125 mg/dL (60-115)
[2022-12-04] MEDS: oxyCODONE HCl ER 10 MG TAB.ER.12H 20 MG PO (20:44)
[2022-12-05] VITALS (7 sets, daily range): BP systolic 100–139; BP diastolic 47–70; PULSE 81–95; RESP 15–20; TEMP 36.6–36.8; O2SAT 92–97; BMI 30.4
[2022-12-05] MEDS: Albumin Human 25 % 100 ML IV (01:47)
[2022-12-05 06:24] LABS: MANUAL DIFF FLAG NO
[2022-12-05 07:05] LABS: Basophils Absolute Auto 0.1 X10*3/uL (0.0-0.2); Basophils Percent Auto 0.5 % (0-2); Eosinophils Absolute Auto 0.2 X10*3/uL (0.0-0.4); Eosinophils Percent Auto 1.4 % (0-4); Hematocrit 28.4 % (37.0-47.0); Imm Gran Abs Auto 0.22 X10*3/uL (0.00-0.03); Imm Gran Pct Auto 1.4 % (0.0-0.4); Lymphocytes Absolute Auto 0.8 X10*3/uL (1.2-4.9); Lymphocytes Percent Auto 5.1 % (20-40); Mean Corpuscular HGB Conc 35.2 g/dl (31.0-35.0); Mean Corpuscular Hemoglobin 32.2 pg (27.0-33.0); Mean Corpuscular Volume 91.3 fL (80.0-98.0); Mean Platelet Volume 10.6 fL (9.4-12.3); Monocytes Absolute Auto 1.2 X10*3/uL (0.1-1.2); Monocytes Percent Auto 7.6 % (2-11); Neutrophils Absolute Auto 13.4 x10*3/uL (2.0-8.3); Platelet Count 55 X10*3/uL (160-400); Red Blood Count 3.11 X10*6/uL (4.20-5.50); Red Cell Distribution Width 14.6 % (11.0-16.0)
[2022-12-05 07:31] LABS: Albumin Level 3.8 g/dL (3.5-5.0); Anion Gap 19 (12-20); Blood Urea Nitrogen 11 mg/dL (9-16); Calcium 8.8 mg/dL (8.4-10.2); Carbon Dioxide 22 mmol/L (22-29); Chloride 102 mmol/L (96-108); Creatinine Clr Calc Pharmacy 98.4; Estimated Glomerular Filt Rate > 60; Glucose Random 82 mg/dL (60-115); Magnesium 1.4 mg/dL (1.6-2.6); Phosphorus 2.5 mg/dL (2.7-4.5); Potassium 3.3 mmol/L (3.3-5.1); Sodium 140 mmol/L (135-145)
[2022-12-05 07:45] LABS: Glucose, Whole Blood 83 mg/dL (60-115)
--- NOTE | 2022-12-05 08:32 | P.CDIC_ITS ---
CDI Concurrent Query Documentation Clarification: PHYSICIAN'S DOCUMENTATION REQUEST Date of Query: 12/05/22 0832 Patient Name: Evelyne Claudio Admit Date: 12/01/22 Dear Doctor, A review of the medical record indicates additional documentation may be needed. Please review below and update the documentation accordingly. Clinical Indicators: Is there a diagnosis that correlates with these lab findings: Risk Factors/Clinical Indicators/Treatments LABS: 12/03 & 12/04 - potassium 3.1 IV fluids Based on the above, could you clarify in the Progress Notes the appropriate diagnosis, if significant, that supports the above abnormalities and additional evaluation, monitoring, and/or treatment rendered: * Hypokalemia or other etiology of lab findings * Labs indicate a diagnosis of (please specify) * Other (please specify) * Unable to determine Use of terms such as suspected, likely, concern for, or probable (associated with a specific diagnosis that is being evaluated, monitored, or treated as if it exists) are acceptable and can be coded in the inpatient setting, when documented at the time of discharge. Thank you, Cindy Dillon [facility], CDIS Extension: [phone] Please use your independent medical judgment in providing your response. THIS QUERY IS PART OF THE PERMANENT MEDICAL RECORD Provider Response: Other Other Diagnosis: Labs indicated diagnosis of hypokalemia
[2022-12-05] MEDS: oxyCODONE HCl ER 10 MG TAB.ER.12H 20 MG PO ×2 (08:34→20:37)
[2022-12-05] MEDS: Magnesium Sulfate/H2O 2 GM/50 ML PIGGYBACK IV (08:35)
[2022-12-05] MEDS: 0.9 % Sodium Chloride Flush 3 ML SYRINGE IVFLUSH ×2 (08:35→18:48)
--- NOTE | 2022-12-05 08:35 | MHC.CDI.CONC ---
CDI Concurrent Query Documentation Clarification: PHYSICIAN'S DOCUMENTATION REQUEST Date of Query: 12/05/22 0835 Patient Name: Evelyne Claudio Admit Date: 12/01/22 Dear Doctor, A review of the medical record indicates additional documentation may be needed. Please review below and update the documentation accordingly. Clinical Indicators: Is there a diagnosis that correlates with these lab findings: Risk Factors/Clinical Indicators/Treatments LABS: albumin 2.6 IV Album Human Based on the above, could you clarify in the Progress Notes the appropriate diagnosis, if significant, that supports the above abnormalities and additional evaluation, monitoring, and/or treatment rendered: Hypoalbuminemia or other etiology of lab findings Labs indicate a diagnosis of (please specify) Other (please specify) Unable to determine Use of terms such as suspected, likely, concern for, or probable (associated with a specific diagnosis that is being evaluated, monitored, or treated as if it exists) are acceptable and can be coded in the inpatient setting, when documented at the time of discharge. Thank you, Cindy Dillon [facility], CDIS Extension: [phone] Please use your independent medical judgment in providing your response. THIS QUERY IS PART OF THE PERMANENT MEDICAL RECORD Provider Response: Other Other Diagnosis: Labs indicated diagnosis of hypoalbuminemia
[2022-12-05] MEDS: oxyCODONE HCl Immed Release 5 MG TABLET 10 MG PO (10:18)
[2022-12-05 11:30] LABS: Glucose, Whole Blood 124 mg/dL (60-115)
[2022-12-05] MEDS: diphenhydrAMINE HCL 25 MG CAPSULE PO ×2 (12:31→20:37)
[2022-12-05] MEDS: Acetaminophen 325 MG TABLET 650 MG PO (12:31)
--- NOTE | 2022-12-05 14:14 | HO.PM.IMPN ---
Subjective Subjective Date of Service: 12/05/22 Review of Systems Denies chest pain Denies shortness of breath Denies nausea vomiting diarrhea. Admits to bilateral right greater than left lower extremity pain and cramping Physical Exam Vital Signs: Vital Signs: Last Vital Signs Temp 98.3 F 12/05/22 10:58 Pulse 95 12/05/22 10:58 Resp 20 12/05/22 10:58 BP 121/70 12/05/22 10:58 Pulse Ox 93 12/05/22 10:58 O2 Del Method 12/05/22 10:58 O2 Flow Rate 2 12/04/22 08:00 BMI result Body Mass Index 30.4 Const: Other: Awake; ill-appearing female who looks older than stated age Resp: Other: Clear to auscultation bilaterally no rales rhonchi or wheezes Cardio: Other: No S4; positive S1-S2; no S3 murmurs rubs or gallops GI: Other: Soft nontender nondistended with normoactive bowel sounds. No acute peritoneal signs Extrem: Other: Left lower extremity erythematous with blisters and weeping. Cool to touch bilaterally Objective Data Active Medications Acetaminophen (Acetaminophen 325 Mg Tablet) 650 mg PO Q6H PRN PRN Reason: Pain, Mild (Pain Scale 1-3) Last Admin: 12/05/22 12:31 Dose: 650 mg Documented By: KD Acetaminophen (Acetaminophen 325 Mg Tablet) 650 mg PO Q4H PRN PRN Reason: Fever Dextrose (Dextrose 50 % 25 Gm/50 Ml Syringe) 25 gm IVPUSH Q15M PRN; Protocol PRN Reason: per Hypoglycemia Standing Ord. Last Admin: 12/02/22 03:03 Dose: 25 gm Documented By: SERRANAlbina Diphenhydramine HCl (Diphenhydramine Hcl 25 Mg Capsule) 25 mg PO Q6H PRN PRN Reason: Itching Last Admin: 12/05/22 12:31 Dose: 25 mg Documented By: KD Enoxaparin Sodium (Enoxaparin Sodium 40 Mg/0.4 Ml Syringe) 40 mg SUBCUT Q24H EVIN Last Admin: 12/04/22 18:39 Dose: 40 mg Documented By: ABDULKADIRNLGILBERTO Fentanyl (Fentanyl Citrate/Pf 100 Mcg/2 Ml Vial) 50 mcg IVPUSH Q2H PRN; Protocol PRN Reason: Pain, Moderate (Pain Scale 4-6 Last Admin: 12/04/22 13:32 Dose: 50 mcg Documented By: SAMARIA Glucose (Glucose Gel 15 Gm Gel..Gram.) 15 gm PO Q15M PRN; Protocol PRN Reason: per Hypoglycemia Standing Ord. Ceftriaxone Sodium 1 gm/ (Sodium Chloride) 50 mls @ 100 mls/hr IV Q24H [facility] Last Infusion: 12/04/22 19:50 Dose: 0 mls/hr Documented By: JERONIMO Insulin Human Lispro (Insulin Lispro 100 Unit/Ml 3 Ml Vial) 0 unit SUBCUT QIDACHS [facility]; Protocol Last Admin: 12/05/22 12:00 Dose: Not Given Documented By: KD Non-Admin Reason: No Insulin Coverage Ondansetron HCl (Ondansetron Hcl 4 Mg/2 Ml Vial) 4 mg IVPUSH Q6H PRN PRN Reason: Nausea and Vomiting Oxycodone HCl (Oxycodone Hcl Er 10 Mg Tab.Er.12h) 20 mg PO BID [facility] Last Admin: 12/05/22 08:34 Dose: 20 mg Documented By: KD Oxycodone HCl (Oxycodone Hcl Immed Release 5 Mg Tablet) 10 mg PO Q4H PRN PRN Reason: Pain, Moderate (Pain Scale 4-6 Last Admin: 12/05/22 10:18 Dose: 10 mg Documented By: KD Oxycodone HCl (Oxycodone Hcl Immed Release 5 Mg Tablet) 20 mg PO Q4H PRN PRN Reason: Pain, Severe (Pain Scale 7-10) Pharmacy Consult (Consult Rx Etoh Phenob Im/Po) 1 each MISCELLANE ONCE PRN; Protocol PRN Reason: Consult order Sodium Chloride (0.9 % Sodium Chloride Flush 3 Ml Syringe) 3 ml IVFLUSH QSHIFT [facility] Last Admin: 12/05/22 08:35 Dose: 3 ml Documented By: KD Labs 12/05/22 05:34 12/05/22 05:34 Labs: Laboratory Results - last 24 hr 12/04/22 12/04/22 12/05/22 16:21 20:33 05:34 MCV MCH MCHC RDW Plt Count MPV Immature Gran % (Auto) Neut % (Auto) Lymph % (Auto) [place]ukes % (Auto) Eos % (Auto) Baso % (Auto) Lymph # (Auto) [place] # (Auto) Eos # (Auto) Baso # (Auto) Abs Immat Gran (auto) Absolute Neuts (auto) Absolute Nucleated RBC Nucleated RBC % (auto) Anion Gap 19 Estim Creat Clear Calc 98.4 Estimated GFR > 60 POC Glucose 98 125 H Random Glucose 82 Calcium 8.8 D Phosphorus 2.5 L Magnesium 1.4 L* Albumin 3.8 12/05/22 12/05/22 12/05/22 05:34 07:41 11:00 MCV 91.3 MCH 32.2 MCHC 35.2 H RDW 14.6 Plt Count 55 L MPV 10.6 Immature Gran % (Auto) 1.4 H Neut % (Auto) 84.0 H Lymph % (Auto) 5.1 L [place]ukes % (Auto) 7.6 Eos % (Auto) 1.4 Baso % (Auto) 0.5 Lymph # (Auto) 0.8 L [place] # (Auto) 1.2 Eos # (Auto) 0.2 Baso # (Auto) 0.1 Abs Immat Gran (auto) 0.22 H Absolute Neuts (auto) 13.4 H Absolute Nucleated RBC 0.000 Nucleated RBC % (auto) 0.0 Anion Gap Estim Creat Clear Calc Estimated GFR POC Glucose 83 124 H Random Glucose Calcium Phosphorus Magnesium Albumin Assessment and Plan (1) Streptococcal bacteremia: Status: Acute (2) Cellulitis: Status: Acute (3) Alcohol abuse: Status: Acute Plan 62-year-old female longstanding history of rheumatoid arthritis presents with left lower extremity cellulitis. Initially started on vancomycin and cefepime for broad coverage. During the 1st 24 hours of admission developed fever and became septic requiring septic for dose to fluids an ICU admission for pressors. Patient also went into alcohol withdrawal for which she was treated with phenobarb protocol. Successfully weaned off pressors and transferred to floor. Completed phenobarb protocol 1. Lower extremity cellulitis/strep bacteremia -ceftriaxone(3) -blood cultures pending(2nd set) 2. Hypoglycemia -normalized -follow on lispro correctional scale 3. Hypomagnesemia -given 2 g IV tonight -recheck levels in morning 4. Acute hyponatremia -resolved with volume repletion -follow renals/divalents 5. Alcohol withdrawal -completed phenobarb protocol 6. Rheumatoid arthritis -will continue hydroxychloroquine/Lyrica/oxycodone as per outpatient dosing -oxycodone dosing was verified with patient's PCP Cayla Peñaloza Full code Lovenox Patient will require ongoing hospitalization for IV antibiotics to treat strep bacteremia Time Spent With Patient Time: Total time managing care of this patient today ____ minutes. Quality Stroke Does the patient have a stroke diagnosis?: No VTE Prior VTE?: No VTE Risk Level:: Medical - moderate - high VTE Device Contraindication: Treatment Not Indicated VTE Drug Contraindication: N/A - Med Ordered
[2022-12-05] MEDS: oxyCODONE HCl Immed Release 5 MG TABLET 20 MG PO ×3 (14:15→22:51)
--- NOTE | 2022-12-05 16:08 | MHC.CM.PN ---
per rounds pts not ready for dc due to swollen legs dc plan rem,anins homemwith vna if ordered by md
[2022-12-05 16:26] LABS: Glucose, Whole Blood 90 mg/dL (60-115)
[2022-12-05] MEDS: Enoxaparin Sodium 40 MG/0.4 ML SYRINGE SUBCUT (18:38)
[2022-12-05] MEDS: cefTRIAXone sodium 1 GM in 0.9 % Sodium Chloride 50 ML IV (18:40)
[2022-12-05 20:27] LABS: Glucose, Whole Blood 80 mg/dL (60-115)
[2022-12-05] MEDS: Nicotine 21 MG PATCH.TD24 TRANSDERMA (22:48)
[2022-12-06] VITALS (7 sets, daily range): BP systolic 121–149; BP diastolic 59–69; PULSE 92–115; RESP 15–20; TEMP 36.1–37.2; O2SAT 95–98
[2022-12-06] MEDS: diphenhydrAMINE HCL 25 MG CAPSULE PO ×3 (03:03→21:07)
[2022-12-06] MEDS: oxyCODONE HCl Immed Release 5 MG TABLET 20 MG PO ×3 (03:06→21:06)
[2022-12-06 06:57] LABS: Basophils Absolute Auto 0.1 X10*3/uL (0.0-0.2); Basophils Percent Auto 0.6 % (0-2); Eosinophils Absolute Auto 0.3 X10*3/uL (0.0-0.4); Eosinophils Percent Auto 1.9 % (0-4); Hematocrit 29.7 % (37.0-47.0); Hemoglobin 10.4 g/dl (12.0-16.0); Imm Gran Abs Auto 0.42 X10*3/uL (0.00-0.03); Imm Gran Pct Auto 2.8 % (0.0-0.4); Lymphocytes Absolute Auto 1.2 X10*3/uL (1.2-4.9); Lymphocytes Percent Auto 7.9 % (20-40); MANUAL DIFF FLAG SCAN; Mean Corpuscular Hemoglobin 31.8 pg (27.0-33.0); Mean Corpuscular Volume 90.8 fL (80.0-98.0); Monocytes Absolute Auto 2.1 X10*3/uL (0.1-1.2); Monocytes Percent Auto 13.8 % (2-11); Neutrophils Absolute Auto 11.1 x10*3/uL (2.0-8.3); Red Blood Count 3.27 X10*6/uL (4.20-5.50); Red Cell Distribution Width 14.6 % (11.0-16.0); SCAN SMEAR FLAG 1; White Blood Count 15.3 X10*3/uL (4.8-10.8)
[2022-12-06 07:16] LABS: Platelet Count 92 X10*3/uL (160-400)
[2022-12-06 07:32] LABS: SLIDE REVIEW VERIFIED
[2022-12-06 07:42] LABS: Alanine Aminotransferase 12 U/L (0-31); Albumin Level 3.5 g/dL (3.5-5.0); Alkaline Phosphatase 233 U/L (39-117); Anion Gap 18 (12-20); Aspartate Amino Transferase 17 U/L (5-31); Bilirubin Total 0.8 mg/dL (0.0-1.0); Blood Urea Nitrogen 13 mg/dL (9-16); Calcium 8.8 mg/dL (8.4-10.2); Carbon Dioxide 23 mmol/L (22-29); Chloride 102 mmol/L (96-108); Creatinine Clr Calc Pharmacy 92.3; Estimated Glomerular Filt Rate > 60; Glucose Fasting 65 mg/dL (60-99); Potassium 3.2 mmol/L (3.3-5.1); Sodium 140 mmol/L (135-145); Total Protein 5.3 g/dL (6.5-8.0)
[2022-12-06 07:44] LABS: Glucose, Whole Blood 69 mg/dL (60-115)
[2022-12-06] MEDS: oxyCODONE HCl ER 10 MG TAB.ER.12H 20 MG PO ×2 (08:12→21:06)
[2022-12-06] MEDS: Potassium Chloride Packet 20 MEQ PACKET 40 MEQ PO (08:13)
[2022-12-06] MEDS: Nicotine 21 MG PATCH.TD24 TRANSDERMA (08:13)
[2022-12-06] MEDS: 0.9 % Sodium Chloride Flush 3 ML SYRINGE IVFLUSH ×2 (08:14→17:25)
[2022-12-06] MEDS: oxyCODONE HCl Immed Release 5 MG TABLET 10 MG PO (11:44)
--- NOTE | 2022-12-06 12:22 | P.PNIM_ITS ---
Subjective Subjective Date of Service: 12/06/22 Interval History: Slowly improving.. Still voices complaints of discomfort despite pain meds Review of Systems Denies chest pain Denies shortness of breath Denies nausea vomiting diarrhea. Admits to bilateral right greater than left lower extremity pain and cramping Physical Exam Vital Signs: Vital Signs: Last Vital Signs Temp 97.6 F 12/06/22 12:00 Pulse 101 H 12/06/22 12:00 Resp 20 12/06/22 12:00 BP 131/60 12/06/22 12:00 Pulse Ox 98 12/06/22 12:00 O2 Del Method 12/06/22 12:00 O2 Flow Rate 2 12/04/22 08:00 BMI result Body Mass Index 30.4 Const: Other: Awake; ill-appearing female who looks older than stated age Resp: Other: Clear to auscultation bilaterally no rales rhonchi or wheezes Cardio: Other: No S4; positive S1-S2; no S3 murmurs rubs or gallops GI: Other: Soft nontender nondistended with normoactive bowel sounds. No acute peritoneal signs Extrem: Other: Left lower extremity erythematous with blisters and weeping. Cool to touch bilaterally Objective Data Active Medications Acetaminophen (Acetaminophen 325 Mg Tablet) 650 mg PO Q6H PRN PRN Reason: Pain, Mild (Pain Scale 1-3) Last Admin: 12/05/22 12:31 Dose: 650 mg Documented By: KD Acetaminophen (Acetaminophen 325 Mg Tablet) 650 mg PO Q4H PRN PRN Reason: Fever Dextrose (Dextrose 50 % 25 Gm/50 Ml Syringe) 25 gm IVPUSH Q15M PRN; Protocol PRN Reason: per Hypoglycemia Standing Ord. Last Admin: 12/02/22 03:03 Dose: 25 gm Documented By: SERRANAlbina Diphenhydramine HCl (Diphenhydramine Hcl 25 Mg Capsule) 25 mg PO Q6H PRN PRN Reason: Itching Last Admin: 12/06/22 03:03 Dose: 25 mg Documented By: DIMITRIS Enoxaparin Sodium (Enoxaparin Sodium 40 Mg/0.4 Ml Syringe) 40 mg SUBCUT Q24H EVIN Last Admin: 12/05/22 18:38 Dose: 40 mg Documented By: KD Fentanyl (Fentanyl Citrate/Pf 100 Mcg/2 Ml Vial) 50 mcg IVPUSH Q2H PRN; Protocol PRN Reason: Pain, Moderate (Pain Scale 4-6 Last Admin: 12/04/22 13:32 Dose: 50 mcg Documented By: SAMARIA Glucose (Glucose Gel 15 Gm Gel..Gram.) 15 gm PO Q15M PRN; Protocol PRN Reason: per Hypoglycemia Standing Ord. Ceftriaxone Sodium 1 gm/ (Sodium Chloride) 50 mls @ 100 mls/hr IV Q24H [facility] Last Infusion: 12/05/22 19:09 Dose: 0 mls/hr Documented By: KD Insulin Human Lispro (Insulin Lispro 100 Unit/Ml 3 Ml Vial) 0 unit SUBCUT QIDACHS [facility]; Protocol Last Admin: 12/06/22 08:07 Dose: Not Given Documented By: AMEE Non-Admin Reason: No Insulin Coverage Nicotine (Nicotine 21 Mg Patch.Td24) 21 mg TRANSDERMA DAILY [facility] Last Admin: 12/06/22 08:13 Dose: 21 mg Documented By: AMEE Ondansetron HCl (Ondansetron Hcl 4 Mg/2 Ml Vial) 4 mg IVPUSH Q6H PRN PRN Reason: Nausea and Vomiting Oxycodone HCl (Oxycodone Hcl Er 10 Mg Tab.Er.12h) 20 mg PO BID [facility] Last Admin: 12/06/22 08:12 Dose: 20 mg Documented By: AMEE Oxycodone HCl (Oxycodone Hcl Immed Release 5 Mg Tablet) 10 mg PO Q4H PRN PRN Reason: Pain, Moderate (Pain Scale 4-6 Last Admin: 12/06/22 11:44 Dose: 10 mg Documented By: AMEE Oxycodone HCl (Oxycodone Hcl Immed Release 5 Mg Tablet) 20 mg PO Q4H PRN PRN Reason: Pain, Severe (Pain Scale 7-10) Last Admin: 12/06/22 03:06 Dose: 20 mg Documented By: DIMITRIS Pharmacy Consult (Consult Rx Etoh Phenob Im/Po) 1 each MISCELLANE ONCE PRN; P rotocol PRN Reason: Consult order Sodium Chloride (0.9 % Sodium Chloride Flush 3 Ml Syringe) 3 ml IVFLUSH QSHIFT [facility] Last Admin: 12/06/22 08:14 Dose: 3 ml Documented By: AMEE Labs 12/06/22 05:57 12/06/22 05:57 Labs: Laboratory Results - last 24 hr 12/05/22 12/05/22 12/06/22 16:20 20:24 05:57 MCV MCH MCHC RDW Plt Count MPV Immature Gran % (Auto) Neut % (Auto) Lymph % (Auto) [place] % (Auto) Eos % (Auto) Baso % (Auto) Lymph # (Auto) [place] # (Auto) Eos # (Auto) Baso # (Auto) Abs Immat Gran (auto) Absolute Neuts (auto) Absolute Nucleated RBC Nucleated RBC % (auto) Smear Tech's Comments Anion Gap 18 Estim Creat Clear Calc 92.3 Estimated GFR > 60 POC Glucose 90 80 Fasting Glucose 65 Calcium 8.8 Total Bilirubin 0.8 AST 17 ALT 12 Alkaline Phosphatase 233 H Total Protein 5.3 L Albumin 3.5 12/06/22 12/06/22 05:57 07:18 MCV 90.8 MCH 31.8 MCHC 35.0 RDW 14.6 Plt Count 92 L D MPV 11.0 Immature Gran % (Auto) 2.8 H Neut % (Auto) 73.0 Lymph % (Auto) 7.9 L [place] % (Auto) 13.8 H Eos % (Auto) 1.9 Baso % (Auto) 0.6 Lymph # (Auto) 1.2 [place] # (Auto) 2.1 H Eos # (Auto) 0.3 Baso # (Auto) 0.1 Abs Immat Gran (auto) 0.42 H Absolute Neuts (auto) 11.1 H Absolute Nucleated RBC 0.000 Nucleated RBC % (auto) 0.0 Smear Tech's Comments VERIFIED Anion Gap Estim Creat Clear Calc Estimated GFR POC Glucose 69 Fasting Glucose Calcium Total Bilirubin AST ALT Alkaline Phosphatase Total Protein Albumin Assessment and Plan (1) Cellulitis: Status: Acute (2) Hypoglycemia: Status: Acute (3) Hypomagnesemia: Status: Acute Plan 62-year-old female longstanding history of rheumatoid arthritis presents with left lower extremity cellulitis. Initially started on vancomycin and cefepime for broad coverage. During the 1st 24 hours of admission developed fever and became septic requiring septic for dose to fluids an ICU admission for pressors. Patient also went into alcohol withdrawal for which she was treated with phenobarb protocol. Successfully weaned off pressors and transferred to floor. Completed phenobarb protocol 1. Lower extremity cellulitis/strep bacteremia -ceftriaxone(4) -blood cultures pending(2nd set) 2. Hypoglycemia -normalized -follow on lispro correctional scale 3. Hypomagnesemia -given 2 g IV tonight -recheck levels in morning 4. Acute hyponatremia -resolved with volume repletion -follow renals/divalents 5. Alcohol withdrawal -completed phenobarb protocol 6. Rheumatoid arthritis -will continue hydroxychloroquine/Lyrica/oxycodone as per outpatient dosing -oxycodone dosing was verified with patient's PCP Cayla Peñaloza Full code Lovenox Patient will require ongoing hospitalization for IV antibiotics to treat strep bacteremia Time Spent With Patient Time: Total time managing care of this patient today ____ minutes. Quality Stroke Does the patient have a stroke diagnosis?: No VTE Prior VTE?: No VTE Risk Level:: Medical - moderate - high VTE Device Contraindication: Treatment Not Indicated VTE Drug Contraindication: N/A - Med Ordered
[2022-12-06 12:25] LABS: Glucose, Whole Blood 139 mg/dL (60-115)
[2022-12-06 15:15] LABS: Glucose, Whole Blood 114 mg/dL (60-115)
[2022-12-06] MEDS: Sennosides 8.6 MG TABLET 17.2 MG PO (17:32)
[2022-12-06] MEDS: cefTRIAXone sodium 1 GM in 0.9 % Sodium Chloride 50 ML IV (17:33)
[2022-12-06] MEDS: Enoxaparin Sodium 40 MG/0.4 ML SYRINGE SUBCUT (18:11)
[2022-12-06 19:30] LABS: Glucose, Whole Blood 157 mg/dL (60-115)
[2022-12-07] VITALS (7 sets, daily range): BP systolic 104–143; BP diastolic 54–84; PULSE 89–101; RESP 16–20; TEMP 36–36.6; O2SAT 92–97; BMI 29.5
[2022-12-07] MEDS: oxyCODONE HCl Immed Release 5 MG TABLET 20 MG PO ×5 (01:50→23:42)
[2022-12-07] MEDS: Acetaminophen 325 MG TABLET 650 MG PO (06:05)
[2022-12-07 06:21] LABS: Hematocrit 29.7 % (37.0-47.0); Hemoglobin 10.3 g/dl (12.0-16.0); Mean Corpuscular HGB Conc 34.7 g/dl (31.0-35.0); Mean Corpuscular Volume 92.2 fL (80.0-98.0); Mean Platelet Volume 9.6 fL (9.4-12.3); Platelet Count 151 X10*3/uL (160-400); Red Blood Count 3.22 X10*6/uL (4.20-5.50); Red Cell Distribution Width 15.1 % (11.0-16.0); White Blood Count 14.6 X10*3/uL (4.8-10.8)
[2022-12-07 06:37] LABS: Alanine Aminotransferase 10 U/L (0-31); Albumin Level 2.9 g/dL (3.5-5.0); Alkaline Phosphatase 186 U/L (39-117); Anion Gap 14 (12-20); Aspartate Amino Transferase 15 U/L (5-31); Bilirubin Total 0.6 mg/dL (0.0-1.0); Blood Urea Nitrogen 13 mg/dL (9-16); Calcium 8.5 mg/dL (8.4-10.2); Carbon Dioxide 25 mmol/L (22-29); Chloride 104 mmol/L (96-108); Creatinine Clr Calc Pharmacy 88.1; Estimated Glomerular Filt Rate > 60; Glucose Fasting 148 mg/dL (60-99); Magnesium 1.6 mg/dL (1.6-2.6); Potassium 3.7 mmol/L (3.3-5.1); Sodium 139 mmol/L (135-145); Total Protein 4.9 g/dL (6.5-8.0)
[2022-12-07 06:59] LABS: Atypical Lymph Absolute Manual 0.3 x10*3/uL; Atypical Lymphs Percent Manual 2 % (0-6); Band Neutrophils Percent 1 % (3-5); Eosinophils Absolute Manual 0.3 X10*3/uL (0.0-0.4); Eosinophils Percent Manual 2 % (0-4); Lymphocytes Percent Manual 7 % (20-40); Monocytes Absolute Manual 2.2 X10*3/uL (0.1-1.2); Monocytes Percent Manual 15 % (2-11); Neutrophils Absolute Manual 10.8 X10*3/uL (2.0-8.3); Neutrophils Percent Manual 73 % (45-73)
[2022-12-07 07:00] LABS: Platelet Estimate NORMAL (NORMAL); Platelet Morphology Comment NORMAL; Toxic Granulation PRESENT
[2022-12-07 07:01] LABS: RBC Morphology NORMAL
[2022-12-07 07:35] LABS: Glucose, Whole Blood 153 mg/dL (60-115)
[2022-12-07] MEDS: Insulin Lispro 100 UNIT/ML 3 ML VIAL SUBCUT ×2 (08:26→20:54)
[2022-12-07] MEDS: Nicotine 21 MG PATCH.TD24 TRANSDERMA (08:27)
[2022-12-07] MEDS: Sennosides 8.6 MG TABLET 17.2 MG PO (08:29)
[2022-12-07] MEDS: oxyCODONE HCl ER 10 MG TAB.ER.12H 20 MG PO ×2 (08:29→20:54)
[2022-12-07] MEDS: 0.9 % Sodium Chloride Flush 3 ML SYRINGE IVFLUSH ×2 (08:56→20:54)
[2022-12-07 11:22] LABS: Glucose, Whole Blood 125 mg/dL (60-115)
[2022-12-07] MEDS: diphenhydrAMINE HCL 25 MG CAPSULE PO ×3 (12:44→21:56)
--- NOTE | 2022-12-07 13:40 | P.PNIM_ITS ---
Subjective Subjective Date of Service: 12/07/22 Interval History: Complaining of right leg persistent swelling, tightness and discomfort, denies fever, chills, tolerating diet with no nausea, no vomiting, no abdominal pain, no diarrhea, no fevers, no chills, no acute issues overnight. Review of Systems Review of Systems: Yes all other systems are reviewed and are negative Physical Exam 2 Vital Signs: Vital Signs: Last Vital Signs Temp 96.8 F 12/07/22 07:30 Pulse 89 12/07/22 07:30 Resp 16 12/07/22 07:30 BP 104/54 L 12/07/22 07:30 Pulse Ox 92 12/07/22 07:30 O2 Del Method 12/07/22 07:30 O2 Flow Rate 2 12/04/22 08:00 BMI result Body Mass Index 29.5 Const: Other: General awake alert x3, resting comfortably in no acute distress. Eyes anicteric sclera, people equal round reactive to light and accommodation Neck supple no JVD. CVS regular rate rhythm, Respiratory lungs clear to auscultation, no respiratory distress, no wheeze, no rhonchi. Gastrointestinal abdomen soft, nontender, bowel sounds audible, no guarding , no rigidity. Extremities bilateral lower extremity significant hyperemia up to mid leg, with demarcation, right leg swelling greater than left. Decrease weeping. Neuro nonfocal , speech clear. Psych appropriate affect Objective Data Active Medications Acetaminophen (Acetaminophen 325 Mg Tablet) 650 mg PO Q6H PRN PRN Reason: Pain, Mild (Pain Scale 1-3) Last Admin: 12/05/22 12:31 Dose: 650 mg Documented By: KD Acetaminophen (Acetaminophen 325 Mg Tablet) 650 mg PO Q4H PRN PRN Reason: Fever Last Admin: 12/07/22 06:05 Dose: 650 mg Documented By: RYAN Dextrose (Dextrose 50 % 25 Gm/50 Ml Syringe) 25 gm IVPUSH Q15M PRN; Protocol PRN Reason: per Hypoglycemia Standing Ord. Last Admin: 12/02/22 03:03 Dose: 25 gm Documented By: SERRANAlbina Diphenhydramine HCl (Diphenhydramine Hcl 25 Mg Capsule) 25 mg PO Q6H PRN PRN Reason: Itching Last Admin: 12/07/22 12:44 Dose: 25 mg Documented By: ALEX Enoxaparin Sodium (Enoxaparin Sodium 40 Mg/0.4 Ml Syringe) 40 mg SUBCUT Q24H [facility] Last Admin: 12/06/22 18:11 Dose: 40 mg Documented By: AMEE Glucose (Glucose Gel 15 Gm Gel..Gram.) 15 gm PO Q15M PRN; Protocol PRN Reason: per Hypoglycemia Standing Ord. Insulin Human Lispro (Insulin Lispro 100 Unit/Ml 3 Ml Vial) 0 unit SUBCUT QIDACHS [facility]; Protocol Last Admin: 12/07/22 11:35 Dose: Not Given Documented By: ALEX Non-Admin Reason: No Insulin Coverage Nicotine (Nicotine 21 Mg Patch.Td24) 21 mg TRANSDERMA DAILY [facility] Last Admin: 12/07/22 08:27 Dose: 21 mg Documented By: ALEX Ondansetron HCl (Ondansetron Hcl 4 Mg/2 Ml Vial) 4 mg IVPUSH Q6H PRN PRN Reason: Nausea and Vomiting Oxycodone HCl (Oxycodone Hcl Er 10 Mg Tab.Er.12h) 20 mg PO BID [facility] Last Admin: 12/07/22 08:29 Dose: 20 mg Documented By: ALEX Oxycodone HCl (Oxycodone Hcl Immed Release 5 Mg Tablet) 10 mg PO Q4H PRN PRN Reason: Pain, Moderate (Pain Scale 4-6 Last Admin: 12/06/22 11:44 Dose: 10 mg Documented By: AMEE Oxycodone HCl (Oxycodone Hcl Immed Release 5 Mg Tablet) 20 mg PO Q4H PRN PRN Reason: Pain, Severe (Pain Scale 7-10) Last Admin: 12/07/22 12:38 Dose: 20 mg Documented By: ALEX Pharmacy Consult (Consult Rx Etoh Phenob Im/Po) 1 each MISCELLANE ONCE PRN; Protocol PRN Reason: Consult order Senna (Sennosides 8.6 Mg Tablet) 17.2 mg PO DAILY [facility] Last Admin: 12/07/22 08:29 Dose: 17.2 mg Documented By: ALEX Sodium Chloride (0.9 % Sodium Chloride Flush 3 Ml Syringe) 3 ml IVFLUSH QSHIFT [facility] Last Admin: 12/07/22 08:56 Dose: 3 ml Documented By: ALEX Labs 12/07/22 05:44 12/07/22 05:44 Labs: Laboratory Results - last 24 hr 12/06/22 12/06/22 12/07/22 15:04 19:07 05:44 MCV MCH MCHC RDW Plt Count MPV Immature Gran % (Auto) Neut % (Auto) Lymph % (Auto) [place] % (Auto) Eos % (Auto) Baso % (Auto) Lymph # (Auto) [place] # (Auto) Eos # (Auto) Baso # (Auto) Abs Immat Gran (auto) Absolute Neuts (auto) Absolute Nucleated RBC Nucleated RBC % (auto) Neutrophils % (Manual) Band Neutrophils % Lymphocytes % (Manual) Atypical Lymphs % (Man) Monocytes % (Manual) Eosinophils % (Manual) Abs Neuts (Manual) Lymphocytes # (Manual) Atyp Lymphs # (Manual) Monocytes # (Manual) Eosinophils # (Manual) Toxic Granulation Platelet Estimate Plt Morphology Comment RBC Morphology Anion Gap 14 Estim Creat Clear Calc 88.1 Estimated GFR > 60 POC Glucose 114 157 H Fasting Glucose 148 H Calcium 8.5 Magnesium 1.6 Total Bilirubin 0.6 AST 15 ALT 10 Alkaline Phosphatase 186 H Total Protein 4.9 L Albumin 2.9 L 12/07/22 12/07/22 12/07/22 05:44 07:28 11:12 MCV 92.2 MCH 32.0 MCHC 34.7 RDW 15.1 Plt Count 151 L D MPV 9.6 Immature Gran % (Auto) Cancelled Neut % (Auto) Cancelled Lymph % (Auto) Cancelled [place] % (Auto) Cancelled Eos % (Auto) Cancelled Baso % (Auto) Cancelled Lymph # (Auto) Cancelled [place] # (Auto) Cancelled Eos # (Auto) Cancelled Baso # (Auto) Cancelled Abs Immat Gran (auto) Cancelled Absolute Neuts (auto) Cancelled Absolute Nucleated RBC 0.000 Nucleated RBC % (auto) 0.0 Neutrophils % (Manual) 73 Band Neutrophils % 1 L Lymphocytes % (Manual) 7 L Atypical Lymphs % (Man) 2 Monocytes % (Manual) 15 H Eosinophils % (Manual) 2 Abs Neuts (Manual) 10.8 H Lymphocytes # (Manual) 1.0 L Atyp Lymphs # (Manual) 0.3 Monocytes # (Manual) 2.2 H Eosinophils # (Manual) 0.3 Toxic Granulation PRESENT Platelet Estimate NORMAL Plt Morphology Comment NORMAL RBC Morphology NORMAL Anion Gap Estim Creat Clear Calc Estimated GFR POC Glucose 153 H 125 H Fasting Glucose Calcium Magnesium Total Bilirubin AST ALT Alkaline Phosphatase Total Protein Albumin Assessment and Plan (1) Cellulitis: Status: Acute (2) Hypoglycemia: Status: Acute (3) Hypomagnesemia: Status: Acute Plan 62-year-old female longstanding history of rheumatoid arthritis presents with left lower extremity cellulitis. Initially started on vancomycin and cefepime for broad coverage. During the 1st 24 hours of admission developed fever and became septic requiring septic for dose to fluids an ICU admission for pressors. Patient also went into alcohol withdrawal for which she was treated with phenobarb protocol. Successfully weaned off pressors and transferred to floor. Completed phenobarb protocol 1. Streptococcus pyogenes bacteremia with Lower extremity cellulitis -on iv ceftriaxone D5, WBC trending down slowly, obtained ID consult due to slow improvement Id rec,grant DC IV ceftriaxone and place on IV Zosyn will obtain MRI right leg, rule out necrotizing fasciitis. Ultrasound bilateral lower extremity showed no DVT Advised to keep leg elevated Being followed by Physical therapy patient declined therapy today due to tiredness and sleepiness. This 2. Hypoglycemia -normalized -follow on lispro correctional scale 3. Hypomagnesemia -status post IV repletion repeat magnesium 1.7 4. Acute hyponatremia -resolved with volume repletion, sodium stable follow BMP 5. Alcohol withdrawal -completed phenobarb protocol 6. Rheumatoid arthritis -will continue Lyrica/oxycodone as per outpatient dosing -oxycodone dosing was verified with patient's PCP Cayla Peñaloza 7. Thrombocytopenia improved question related to acute infection 8. Tobacco use disorder continue nicotine patch 21 mg Full code Lovenox Patient will require ongoing hospitalization for IV antibiotics to treat strep bacteremia Time Spent With Patient Time: Total time managing care of this patient today ____ minutes. Quality Stroke Does the patient have a stroke diagnosis?: No VTE Prior VTE?: No VTE Risk Level:: Medical - moderate - high VTE Device Contraindication: Treatment Not Indicated VTE Drug Contraindication: N/A - Med Ordered
--- NOTE | 2022-12-07 15:18 | MHC.CM.PN ---
per rounds pt will not be dcd today has bactremia dc plan remanins home
[2022-12-07] MEDS: oxyCODONE HCl Immed Release 5 MG TABLET 10 MG PO (15:48)
--- NOTE | 2022-12-07 15:51 | MHC.CM.PN ---
per rounds pt has bactremia bed search for rehab in place
[2022-12-07] MEDS: Piperacillin Sodium/Tazobactam 3.375 GM in 0.9 % Sodium Chloride 50 ML IV ×2 (15:53→20:54)
[2022-12-07 16:11] LABS: Glucose, Whole Blood 132 mg/dL (60-115)
--- NOTE | 2022-12-07 16:18 | W.PM.IDCN ---
History of Present Illness Data of Consult Service Date: 12/07/22 Requesting physician: Misbah Valdivia Primary Care Provider: Cayla Peñaloza NP HPI Reason for consult: Group A strep sepsis She presents with bilateral leg pain and swelling and erythema,right more than left. She has symptoms one week. She has Group A strep 2/4. Review of Systems Review of Systems: Yes all other systems are reviewed and are negative [facility] Past Medical History Medical History Alcohol abuse Carpal tunnel syndrome Chronic bronchitis Diabetes Neuropathy Osteoarthritis Osteomyelitis Pilonidal cyst Pleurisy Pulmonary embolism Rheumatoid arthritis Seronegative rheumatoid arthritis Smoker Family History Family History Mother CHF (congestive heart failure) Stroke Uterine cancer Father CHF (congestive heart failure) Sister Diabetes Brother Diabetes Pulmonary embolism Family history: reviewed and not pertinent Surgical History Surgical History H/O hernia repair History of left knee replacement (~2016) History of surgery on arm History of total right knee replacement (TKR) Previous back surgery (~2015) Social History Social History Household Members: None Housing: Unknown / Unable to assess Are you a primary personal care home administrator to a significant other at home: No Unable to assess alcohol history related to: Unable to respond Alcohol intake: current Alcohol intake frequency: a few times a week Alcohol type: hard liquor Patient Tobacco Use Status: Refuse Tobacco use screen Tobacco use type: Cigarette Cigarette Packs Per Day: 1 Cigarettes Per Day: 20 Years Smoked: 40 service: No Current occupational status: unemployed Meds Allergies Allergy/AdvReac Type Severity Reaction Status Date / Time lisinopril Allergy Intermediate Swelling Verified 10/04/22 10:39 clavulanic acid Allergy Mild RASH Verified 10/04/22 10:39 [From Augmentin] aripiprazole [From ABILIFY] AdvReac Intermediate EDEMA Verified 10/04/22 10:39 duloxetine [From CYMBALTA] AdvReac Intermediate WT Verified 10/04/22 10:39 GAIN/EDEMA ibuprofen AdvReac Unknown kidney Verified 10/04/22 10:39 function Active Medications: Current Medications Acetaminophen (Acetaminophen 325 Mg Tablet) 650 mg PO Q6H PRN PRN Reason: Pain, Mild (Pain Scale 1-3) Last Admin: 12/05/22 12:31 Dose: 650 mg Acetaminophen (Acetaminophen 325 Mg Tablet) 650 mg PO Q4H PRN PRN Reason: Fever Last Admin: 12/07/22 06:05 Dose: 650 mg Dextrose (Dextrose 50 % 25 Gm/50 Ml Syringe) 25 gm IVPUSH Q15M PRN; Protocol PRN Reason: per Hypoglycemia Standing Ord. Last Admin: 12/02/22 03:03 Dose: 25 gm Diphenhydramine HCl (Diphenhydramine Hcl 25 Mg Capsule) 25 mg PO Q6H PRN PRN Reason: Itching Last Admin: 12/07/22 12:44 Dose: 25 mg Enoxaparin Sodium (Enoxaparin Sodium 40 Mg/0.4 Ml Syringe) 40 mg SUBCUT Q24H REPLACED BY [facility] Last Admin: 12/06/22 18:11 Dose: 40 mg Glucose (Glucose Gel 15 Gm Gel..Gram.) 15 gm PO Q15M PRN; Protocol PRN Reason: per Hypoglycemia Standing Ord. Piperacillin Sod/Tazobactam (Sod 3.375 gm/ Sodium Chloride) 50 mls @ 100 mls/hr IV Q6H REPLACED BY [facility] Last Admin: 12/07/22 15:53 Dose: 100 mls/hr Insulin Human Lispro (Insulin Lispro 100 Unit/Ml 3 Ml Vial) 0 unit SUBCUT QIDACHS REPLACED BY [facility]; Protocol Last Admin: 12/07/22 11:35 Dose: Not Given Magnesium Oxide (Magnesium Oxide 400 Mg Tablet) [address] [place] Nicotine (Nicotine 21 Mg Patch.Td24) 21 mg TRANSDERMA DAILY REPLACED BY [facility] Last Admin: 12/07/22 08:27 Dose: 21 mg Ondansetron HCl (Ondansetron Hcl 4 Mg/2 Ml Vial) 4 mg IVPUSH Q6H PRN PRN Reason: Nausea and Vomiting Oxycodone HCl (Oxycodone Hcl Er 10 Mg Tab.Er.12h) 20 mg PO BID REPLACED BY [facility] Last Admin: 12/07/22 08:29 Dose: 20 mg Oxycodone HCl (Oxycodone Hcl Immed Release 5 Mg Tablet) 10 mg PO Q4H PRN PRN Reason: Pain, Moderate (Pain Scale 4-6 Last Admin: 12/07/22 15:48 Dose: 10 mg Oxycodone HCl (Oxycodone Hcl Immed Release 5 Mg Tablet) 20 mg PO Q4H PRN PRN Reason: Pain, Severe (Pain Scale 7-10) Last Admin: 12/07/22 12:38 Dose: 20 mg Pharmacy Consult (Consult Rx Etoh Phenob Im/Po) 1 each MISCELLANE ONCE PRN; Protocol PRN Reason: Consult order Senna (Sennosides 8.6 Mg Tablet) 17.2 mg PO DAILY REPLACED BY [facility] Last Admin: 12/07/22 08:29 Dose: 17.2 mg Sodium Chloride (0.9 % Sodium Chloride Flush 3 Ml Syringe) 3 ml IVFLUSH QSHIFT REPLACED BY [facility] Last Admin: 12/07/22 08:56 Dose: 3 ml Home Medications Medication Instructions Recorded Confirmed Last Taken Type amlodipine 2.5 mg tablet 1 tab PO DAILY 08/12/20 12/02/22 Unknown History baclofen 10 mg tablet 1 tab PO TID 08/12/20 12/02/22 Unknown History blood sugar diagnostic (FreeStyle 08/12/20 07/19/22 Unknown History Lite Strips) bupropion HCl 300 mg 24 hr tablet, 1 tab PO DAILY 08/12/20 12/02/22 Unknown History extended release docusate sodium 100 mg capsule 1 cap PO BID 08/12/20 12/02/22 Unknown History (DOK) levothyroxine 88 mcg tablet 1 tab PO QAM 08/12/20 12/02/22 Unknown History (Euthyrox) metformin 850 mg tablet 1 tab PO BID 08/12/20 12/02/22 Unknown History omeprazole 20 mg capsule,delayed 1 cap PO DAILY 08/12/20 12/02/22 Unknown History release oxybutynin chloride 10 mg 1 tab PO DAILY 08/12/20 12/02/22 Unknown History tablet,extended release 24 hr oxycodone 20 mg tablet,crush 1 tab PO Q12H 08/12/20 12/02/22 Unknown History resistant,extended release 12 hr (OxyContin) simvastatin 20 mg tablet 1 tab PO BEDTIME 08/12/20 12/02/22 Unknown History venlafaxine 150 mg 1 cap PO DAILY 08/12/20 12/02/22 Unknown History capsule,extended release 24 hr albuterol sulfate 90 mcg/actuation 1 puff inhalation Q4H 11/08/21 12/02/22 Unknown History aerosol inhaler clotrimazole-betamethasone 1 1 appl topical BID 11/08/21 12/02/22 Unknown History %-0.05 % topical cream oxycodone 10 mg tablet 10 mg PO Q4H PRN Pain 07/19/22 12/02/22 Unknown History pregabalin 75 mg capsule 75 mg PO BID 10/04/22 12/02/22 Unknown History Physical Exam Vital Signs: Vital Signs: Last Vital Signs Temp 97.8 F 12/07/22 15:13 Pulse 97 12/07/22 15:13 Resp 17 12/07/22 15:13 BP 118/70 12/07/22 15:13 Pulse Ox 94 12/07/22 15:13 O2 Del Method 12/07/22 15:13 O2 Flow Rate 2 12/04/22 08:00 BMI result Body Mass Index 29.5 Const: General: cooperative HEENT: Head: Yes normal to inspection Face and sinus: Yes normal facial exam Mouth: Normal oral and palatal mucosa present Teeth and gingiva: dentition normal Eyes: General: appearance normal, both eyes and all related structures Pupils: Equal, round and reactive pupils present Resp: Effort & Inspection: normal respiratory effort Cardio: Rate: regular rate Rhythm: regular rhythm GI: Palpation (GI): Soft to palpation and nontender : General: Yes no CVA tenderness Back/Spine/Pelvis: Back: no CVA tenderness Skin: General skin exam: no rashes or lesions noted Neuro: General: moves all extremities Cranial nerves: Yes Equal, round and reactive pupils present Extrem: Other: reddened leg right more than left and swelling Psych: Appearance: grossly normal Results Labs 12/07/22 05:44 12/07/22 05:44 Labs: Short CBC 12/07/22 Range/Units 05:44 WBC 14.6 H (4.8-10.8) X10*3/uL Hgb 10.3 L (12.0-16.0) g/dl Hct 29.7 L (37.0-47.0) % Plt Count 151 L D (160-400) X10*3/uL BMP 12/07/22 05:44 Sodium 139 Potassium 3.7 Chloride 104 Carbon Dioxide 25 BUN 13 Creatinine 0.67 Calcium 8.5 Liver Function 12/07/22 Range/Units 05:44 Total Bilirubin 0.6 (0.0-1.0) mg/dL AST 15 (5-31) U/L ALT 10 (0-31) U/L Alkaline Phosphatase 186 H (39-117) U/L Albumin 2.9 L (3.5-5.0) g/dL Microbiology Microbiology Results: Microbiology 12/01/22 17:10 Blood - Venous Blood Culture - Final Streptococcus pyogenes (Grp A) 12/01/22 16:32 Blood - Venous Blood Culture - Final Streptococcus pyogenes (Grp A) Assessment and Plan (1) Streptococcal bacteremia: Status: Acute This is likely leg source. It may be polymicrobial with leg etiology There is concern over pockets fluid in leg or necrotizing fasciitis. (2) Rheumatoid arthritis: Status: Acute (3) Cellulitis: Status: Acute Plan Would check CT of leg Piperacillin/Tazobactam until improved. Check HIV test. Time Spent With Patient Time: Total time managing care of this patient today ____ minutes.
[2022-12-07] MEDS: iohexoL 350 MG/ML 100 ML INFUS..BTL IV (17:56)
[2022-12-07] MEDS: Enoxaparin Sodium 40 MG/0.4 ML SYRINGE SUBCUT (18:15)
[2022-12-07] MEDS: Magnesium Oxide 400 MG TABLET PO (18:15)
[2022-12-07 19:27] LABS: Glucose, Whole Blood 284 mg/dL (60-115)
[2022-12-08] MEDS: Piperacillin Sodium/Tazobactam 3.375 GM in 0.9 % Sodium Chloride 50 ML IV ×4 (03:06→19:51)
[2022-12-08 03:34] VITALS: BP 119/56; PULSE 86; RESP 14; TEMP 36.7; O2SAT 92
[2022-12-08 06:00] VITALS: BMI 29.6
[2022-12-08 06:37] LABS: Mean Corpuscular HGB Conc 34.6 g/dl (31.0-35.0); Mean Corpuscular Hemoglobin 31.7 pg (27.0-33.0); Mean Corpuscular Volume 91.5 fL (80.0-98.0); Mean Platelet Volume 10.1 fL (9.4-12.3); Platelet Count 275 X10*3/uL (160-400); Red Blood Count 2.84 X10*6/uL (4.20-5.50); Red Cell Distribution Width 15.3 % (11.0-16.0); White Blood Count 12.8 X10*3/uL (4.8-10.8)
[2022-12-08 07:06] LABS: Alanine Aminotransferase 10 U/L (0-31); Albumin Level 2.7 g/dL (3.5-5.0); Alkaline Phosphatase 151 U/L (39-117); Anion Gap 15 (12-20); Aspartate Amino Transferase 15 U/L (5-31); Bilirubin Total 0.5 mg/dL (0.0-1.0); Blood Urea Nitrogen 13 mg/dL (9-16); Calcium 8.2 mg/dL (8.4-10.2); Carbon Dioxide 23 mmol/L (22-29); Chloride 105 mmol/L (96-108); Creatinine Clr Calc Pharmacy 83.3; Estimated Glomerular Filt Rate > 60; Glucose Fasting 121 mg/dL (60-99); Glucose Random 122 mg/dL (60-115); Magnesium 1.5 mg/dL (1.6-2.6); Potassium 3.4 mmol/L (3.3-5.1); Sodium 140 mmol/L (135-145); Total Protein 4.9 g/dL (6.5-8.0)
[2022-12-08 07:19] LABS: Basophils Abs Manual 0.1 X10*3/uL (0.0-0.2); Basophils Percent Manual 1 % (0-2); Eosinophils Absolute Manual 0.1 X10*3/uL (0.0-0.4); Eosinophils Percent Manual 1 % (0-4); Lymphocytes Absolute Manual 1.5 X10*3/uL (1.2-4.9); Lymphocytes Percent Manual 12 % (20-40); Monocytes Absolute Manual 1.9 X10*3/uL (0.1-1.2); Monocytes Percent Manual 15 % (2-11)
[2022-12-08 07:22] LABS: Hypochromasia 1+ (5-14) /OIF; RBC Morphology NOTED; Toxic Granulation PRESENT
[2022-12-08 07:23] LABS: Dohle Bodies PRESENT
[2022-12-08 07:24] LABS: Target Cells 1+ (5-14) /OIF
[2022-12-08 07:29] LABS: Band Neutrophils Percent 3 % (3-5); Metamyelocytes Absolute 0.1 X10*3/uL; Metamyelocytes Percent 1 %; Myelocytes Absolute 0.1 X10*/uL; Myelocytes Percent 1 %; Neutrophils Absolute Manual 8.8 X10*3/uL (2.0-8.3); Neutrophils Percent Manual 66 % (45-73)
[2022-12-08 07:30] VITALS: BP 124/59; PULSE 83; RESP 20; TEMP 36.8; O2SAT 95
[2022-12-08 07:30] LABS: Platelet Estimate NORMAL (NORMAL); Platelet Morphology Comment NORMAL
[2022-12-08 07:53] LABS: Glucose, Whole Blood 121 mg/dL (60-115)
[2022-12-08] MEDS: Sennosides 8.6 MG TABLET 17.2 MG PO (08:03)
[2022-12-08] MEDS: Nicotine 21 MG PATCH.TD24 TRANSDERMA (08:04)
[2022-12-08] MEDS: Magnesium Oxide 400 MG TABLET PO ×2 (08:04→16:24)
[2022-12-08] MEDS: oxyCODONE HCl ER 10 MG TAB.ER.12H 20 MG PO ×2 (08:05→19:51)
[2022-12-08] MEDS: oxyCODONE HCl Immed Release 5 MG TABLET 10 MG PO ×3 (08:05→16:23)
[2022-12-08] MEDS: 0.9 % Sodium Chloride Flush 3 ML SYRINGE IVFLUSH ×3 (08:06→19:51)
--- NOTE | 2022-12-08 09:30 | P.PNIM_ITS ---
Subjective Subjective Date of Service: 12/08/22 Interval History: Feeling better with less right leg swelling complaining of persistent pain, denies fever, no chills, no lightheadedness, no dizziness, tolerating diet with no nausea, no vomiting, no abdominal pain, no acute events overnight. Review of Systems Review of Systems: Yes all other systems are reviewed and are negative Physical Exam Vital Signs: Vital Signs: Last Vital Signs Temp 98.3 F 12/08/22 07:30 Pulse 83 12/08/22 07:30 Resp 20 12/08/22 07:30 BP 124/59 L 12/08/22 07:30 Pulse Ox 95 12/08/22 07:30 O2 Del Method 12/08/22 07:30 O2 Flow Rate 2 12/04/22 08:00 BMI result Body Mass Index 29.6 Const: Other: General awake alert x3, resting comfortably in no acute distress. Eyes anicteric sclera, people equal round reactive to light and accommodation Neck? supple no JVD. CVS? regular rate rhythm, Respiratory lungs clear to auscultation, no respiratory distress, no wheeze, no rhonchi. Gastrointestinal abdomen soft, nontender, bowel sounds audible, no guarding , no rigidity. Extremities bilateral lower extremity significant hyperemia up to mid leg, with demarcation, right leg swelling greater than left,with blistering and weeping. Neuro nonfocal , speech clear. Psych appropriate affect Objective Data Active Medications Acetaminophen (Acetaminophen 325 Mg Tablet) 650 mg PO Q6H PRN PRN Reason: Pain, Mild (Pain Scale 1-3) Last Admin: 12/05/22 12:31 Dose: 650 mg Documented By: KD Acetaminophen (Acetaminophen 325 Mg Tablet) 650 mg PO Q4H PRN PRN Reason: Fever Last Admin: 12/07/22 06:05 Dose: 650 mg Documented By: RYAN Dextrose (Dextrose 50 % 25 Gm/50 Ml Syringe) 25 gm IVPUSH Q15M PRN; Protocol PRN Reason: per Hypoglycemia Standing Ord. Last Admin: 12/02/22 03:03 Dose: 25 gm Documented By: SERRANX Diphenhydramine HCl (Diphenhydramine Hcl 25 Mg Capsule) 25 mg PO Q6H PRN PRN Reason: Itching Last Admin: 12/07/22 21:56 Dose: 25 mg Documented By: MARIELENA Enoxaparin Sodium (Enoxaparin Sodium 40 Mg/0.4 Ml Syringe) 40 mg SUBCUT Q24H [facility] Last Admin: 12/07/22 18:15 Dose: 40 mg Documented By: AMEE Glucose (Glucose Gel 15 Gm Gel..Gram.) 15 gm PO Q15M PRN; Protocol PRN Reason: per Hypoglycemia Standing Ord. Piperacillin Sod/Tazobactam (Sod 3.375 gm/ Sodium Chloride) 50 mls @ 100 mls/hr IV Q6H [facility] Last Infusion: 12/08/22 08:45 Dose: 0 mls/hr Documented By: SARTHAK Insulin Human Lispro (Insulin Lispro 100 Unit/Ml 3 Ml Vial) 0 unit SUBCUT QIDAC [facility]; Protocol Last Admin: 12/08/22 08:06 Dose: Not Given Documented By: SARTHAK Non-Admin Reason: No Insulin Coverage Magnesium Oxide (Magnesium Oxide 400 Mg Tablet) 400 mg PO BIDPC [facility] Last Admin: 12/08/22 08:04 Dose: 400 mg Documented By: SARTHAK Nicotine (Nicotine 21 Mg Patch.Td24) 21 mg TRANSDERMA DAILY [facility] Last Admin: 12/08/22 08:04 Dose: 21 mg Documented By: SARTHAK Ondansetron HCl (Ondansetron Hcl 4 Mg/2 Ml Vial) 4 mg IVPUSH Q6H PRN PRN Reason: Nausea and Vomiting Oxycodone HCl (Oxycodone Hcl Er 10 Mg Tab.Er.12h) 20 mg PO BID [facility] Last Admin: 12/08/22 08:05 Dose: 20 mg Documented By: SARTHAK Oxycodone HCl (Oxycodone Hcl Immed Release 5 Mg Tablet) 10 mg PO Q4H PRN PRN Reason: Pain, Moderate (Pain Scale 4-6 Last Admin: 12/08/22 08:05 Dose: 10 mg Documented By: SARTHAK Oxycodone HCl (Oxycodone Hcl Immed Release 5 Mg Tablet) 20 mg PO Q4H PRN PRN Reason: Pain, Severe (Pain Scale 7-10) Last Admin: 12/07/22 23:42 Dose: 20 mg Documented By: MARIELENA Pharmacy Consult (Consult Rx Etoh Phenob Im/Po) 1 each MISCELLANE ONCE PRN; Protocol PRN Reason: Consult order Senna (Sennosides 8.6 Mg Tablet) 17.2 mg PO DAILY [facility] Last Admin: 12/08/22 08:03 Dose: 17.2 mg Documented By: SARTHAK Sodium Chloride (0.9 % Sodium Chloride Flush 3 Ml Syringe) 3 ml IVFLUSH QSHIFT [facility] Last Admin: 12/08/22 08:06 Dose: 3 ml Documented By: SARTHAK Labs 12/08/22 05:53 12/08/22 05:53 Labs: Laboratory Results - last 24 hr 12/07/22 12/07/22 12/07/22 11:12 16:05 19:21 MCV MCH MCHC RDW Plt Count MPV Immature Gran % (Auto) Neut % (Auto) Lymph % (Auto) [place] % (Auto) Eos % (Auto) Baso % (Auto) Lymph # (Auto) [place] # (Auto) Eos # (Auto) Baso # (Auto) Abs Immat Gran (auto) Absolute Neuts (auto) Absolute Nucleated RBC Nucleated RBC % (auto) Neutrophils % (Manual) Band Neutrophils % Lymphocytes % (Manual) Monocytes % (Manual) Eosinophils % (Manual) Basophils % (Manual) Metamyelocytes % Myelocytes % Abs Neuts (Manual) Lymphocytes # (Manual) Monocytes # (Manual) Eosinophils # (Manual) Basophils # (Manual) Metamyelocytes # Myelocytes # Toxic Granulation Dohle Bodies Platelet Estimate Plt Morphology Comment RBC Morphology Hypochromasia Target Cells Anion Gap Estim Creat Clear Calc Estimated GFR POC Glucose 125 H 132 H 284 H Random Glucose Fasting Glucose Calcium Magnesium Total Bilirubin AST ALT Alkaline Phosphatase Total Protein Albumin 12/08/22 12/08/22 12/08/22 05:53 05:53 07:32 MCV 91.5 MCH 31.7 MCHC 34.6 RDW 15.3 Plt Count 275 D MPV 10.1 Immature Gran % (Auto) Cancelled Neut % (Auto) Cancelled Lymph % (Auto) Cancelled [place] % (Auto) Cancelled Eos % (Auto) Cancelled Baso % (Auto) Cancelled Lymph # (Auto) Cancelled [place] # (Auto) Cancelled Eos # (Auto) Cancelled Baso # (Auto) Cancelled Abs Immat Gran (auto) Cancelled Absolute Neuts (auto) Cancelled Absolute Nucleated RBC 0.000 Nucleated RBC % (auto) 0.0 Neutrophils % (Manual) 66 Band Neutrophils % 3 Lymphocytes % (Manual) 12 L Monocytes % (Manual) 15 H Eosinophils % (Manual) 1 Basophils % (Manual) 1 Metamyelocytes % 1 Myelocytes % 1 Abs Neuts (Manual) 8.8 H Lymphocytes # (Manual) 1.5 Monocytes # (Manual) 1.9 H Eosinophils # (Manual) 0.1 Basophils # (Manual) 0.1 Metamyelocytes # 0.1 Myelocytes # 0.1 Toxic Granulation PRESENT Dohle Bodies PRESENT Platelet Estimate NORMAL Plt Morphology Comment NORMAL RBC Morphology NOTED Hypochromasia 1+ (5-14) Target Cells 1+ (5-14) Anion Gap 15 Estim Creat Clear Calc 83.3 Estimated GFR > 60 POC Glucose 121 H Random Glucose 122 H Fasting Glucose 121 H Calcium 8.2 L Magnesium 1.5 L Total Bilirubin 0.5 AST 15 ALT 10 Alkaline Phosphatase 151 H Total Protein 4.9 L Albumin 2.7 L Assessment and Plan (1) Cellulitis: Status: Acute (2) Hypoglycemia: Status: Acute (3) Hypomagnesemia: Status: Acute Plan 62-year-old female longstanding history of rheumatoid arthritis presents with left lower extremity cellulitis. Initially started on vancomycin and cefepime for broad coverage. During the 1st 24 hours of admission developed fever and became septic requiring septic for dose to fluids an ICU admission for pressors. Patient also went into alcohol withdrawal for which she was treated with phenobarb protocol. Successfully weaned off pressors and transferred to floor. Completed phenobarb protocol 1. Streptococcus pyogenes bacteremia with Lower extremity cellulitis -slowly improving with less edema persistent pain s/p iv ceftriaxone x 5D, now 1 IV Zosyn day 2 , WBC trending down CT right leg showed severe cellulitis but no necrotizing fasciitis, will check HIV as per ID recommendation Ultrasound bilateral lower extremity showed no DVT keep leg elevated,give low dose lasix Being followed by Physical therapy 2. Hypoglycemia -normalized, on lispro correctional scale 3. Hypomagnesemia -status post IV repletion repeat magnesium 1.7, placed on Mag oxide 4. Acute hyponatremia -resolved with volume repletion, sodium stable follow BMP 5. Alcohol withdrawal -completed phenobarb protocol 6. Rheumatoid arthritis -will continue Lyrica/oxycodone as per outpatient dosing -oxycodone dosing was verified with patient's PCP Cayla Peñaloza, continue home dose of oxycodone 7. Thrombocytopenia improved question related to acute infection 8. Tobacco use disorder continue nicotine patch 21 mg Full code Lovenox Patient will require ongoing hospitalization for IV antibiotics to treat strep bacteremia Time Spent With Patient Time: Total time managing care of this patient today ____ minutes. Quality Stroke Does the patient have a stroke diagnosis?: No VTE Prior VTE?: No VTE Risk Level:: Medical - moderate - high VTE Device Contraindication: Treatment Not Indicated VTE Drug Contraindication: N/A - Med Ordered
[2022-12-08 11:03] VITALS: BP 96/48; PULSE 88; RESP 20; TEMP 36.3; O2SAT 94
[2022-12-08 11:29] LABS: Glucose, Whole Blood 148 mg/dL (60-115)
[2022-12-08] MEDS: Docusate Sodium 100 MG CAPSULE 200 MG PO (11:49)
[2022-12-08 15:51] VITALS: BP 100/51; PULSE 88; RESP 19; TEMP 36.6; O2SAT 93
[2022-12-08 16:33] LABS: Glucose, Whole Blood 127 mg/dL (60-115)
[2022-12-08] MEDS: Enoxaparin Sodium 40 MG/0.4 ML SYRINGE SUBCUT (18:26)
[2022-12-08 19:31] VITALS: BP 100/44; PULSE 84; RESP 19; TEMP 36.4; O2SAT 94
[2022-12-08] MEDS: diphenhydrAMINE HCL 25 MG CAPSULE PO (19:51)
[2022-12-08 20:43] LABS: Glucose, Whole Blood 129 mg/dL (60-115)
[2022-12-08] MEDS: Acetaminophen 325 MG TABLET 650 MG PO (21:28)
[2022-12-08 23:40] VITALS: BP 99/58; PULSE 77; RESP 18; TEMP 36.4; O2SAT 94
[2022-12-09] MEDS: Piperacillin Sodium/Tazobactam 3.375 GM in 0.9 % Sodium Chloride 50 ML IV ×4 (02:40→20:20)
[2022-12-09] MEDS: oxyCODONE HCl Immed Release 5 MG TABLET 10 MG PO (03:13)
[2022-12-09] MEDS: Acetaminophen 325 MG TABLET 650 MG PO ×4 (03:14→20:47)
[2022-12-09 04:00] VITALS: BP 97/54; PULSE 77; RESP 18; TEMP 37.2; O2SAT 94
[2022-12-09 06:48] LABS: Basophils Percent Auto 0.4 % (0-2); Eosinophils Absolute Auto 0.2 X10*3/uL (0.0-0.4); Eosinophils Percent Auto 1.7 % (0-4); Hematocrit 26.8 % (37.0-47.0); Hemoglobin 9.2 g/dl (12.0-16.0); Imm Gran Abs Auto 0.42 X10*3/uL (0.00-0.03); Lymphocytes Absolute Auto 1.5 X10*3/uL (1.2-4.9); Lymphocytes Percent Auto 14.6 % (20-40); MANUAL DIFF FLAG SCAN; Mean Corpuscular HGB Conc 34.3 g/dl (31.0-35.0); Mean Corpuscular Hemoglobin 31.9 pg (27.0-33.0); Mean Corpuscular Volume 93.1 fL (80.0-98.0); Mean Platelet Volume 9.5 fL (9.4-12.3); Monocytes Absolute Auto 1.6 X10*3/uL (0.1-1.2); Monocytes Percent Auto 15.6 % (2-11); Neutrophils Absolute Auto 6.7 x10*3/uL (2.0-8.3); Neutrophils Percent Auto 63.7 % (45-73); Platelet Count 379 X10*3/uL (160-400); Red Blood Count 2.88 X10*6/uL (4.20-5.50); Red Cell Distribution Width 15.6 % (11.0-16.0); SCAN SMEAR FLAG 1; White Blood Count 10.5 X10*3/uL (4.8-10.8)
[2022-12-09 07:09] VITALS: BP 110/72; PULSE 79; RESP 16; TEMP 36; O2SAT 94
[2022-12-09 07:22] LABS: Alanine Aminotransferase 10 U/L (0-31); Albumin Level 2.7 g/dL (3.5-5.0); Alkaline Phosphatase 131 U/L (39-117); Anion Gap 15 (12-20); Aspartate Amino Transferase 13 U/L (5-31); Bilirubin Total 0.4 mg/dL (0.0-1.0); Blood Urea Nitrogen 12 mg/dL (9-16); Calcium 7.9 mg/dL (8.4-10.2); Carbon Dioxide 25 mmol/L (22-29); Chloride 104 mmol/L (96-108); Creatinine Clr Calc Pharmacy 82.2; Estimated Glomerular Filt Rate > 60; Glucose Fasting 129 mg/dL (60-99); Magnesium 1.7 mg/dL (1.6-2.6); Potassium 3.6 mmol/L (3.3-5.1); Sodium 140 mmol/L (135-145); Total Protein 5.2 g/dL (6.5-8.0)
[2022-12-09 07:36] LABS: SLIDE REVIEW VERIFIED
[2022-12-09 07:43] LABS: Glucose, Whole Blood 125 mg/dL (60-115)
[2022-12-09] MEDS: oxyCODONE HCl ER 10 MG TAB.ER.12H 20 MG PO ×2 (08:21→20:18)
[2022-12-09] MEDS: Sennosides 8.6 MG TABLET 17.2 MG PO (08:22)
[2022-12-09] MEDS: Docusate Sodium 100 MG CAPSULE 200 MG PO (08:23)
[2022-12-09] MEDS: Nicotine 21 MG PATCH.TD24 TRANSDERMA (08:23)
[2022-12-09] MEDS: oxyCODONE HCl Immed Release 5 MG TABLET 20 MG PO ×3 (08:23→17:14)
[2022-12-09] MEDS: 0.9 % Sodium Chloride Flush 3 ML SYRINGE IVFLUSH (08:24)
[2022-12-09] MEDS: Magnesium Oxide 400 MG TABLET PO ×2 (08:24→17:23)
[2022-12-09 10:56] VITALS: BP 96/54; PULSE 73; RESP 16; TEMP 36.4; O2SAT 96
[2022-12-09 11:11] LABS: Glucose, Whole Blood 154 mg/dL (60-115)
[2022-12-09] MEDS: Insulin Lispro 100 UNIT/ML 3 ML VIAL SUBCUT ×2 (11:35→20:20)
--- NOTE | 2022-12-09 12:38 | P.PNIM_ITS ---
Subjective Subjective Date of Service: 12/09/22 Interval History: Patient complaining of right leg pain and spasm, also complaining of back pain, requesting her home medications Lyrica, baclofen and antidepressants, denies fever chills, tolerating diet, no nausea, no vomiting, no abdominal pain, seen by Physical therapy and recommended home physical therapy, no acute issues overnight. Review of Systems Review of Systems: Yes all other systems are reviewed and are negative Physical Exam Vital Signs: Vital Signs: Last Vital Signs Temp 97.6 F 12/09/22 10:56 Pulse 73 12/09/22 10:56 Resp 16 12/09/22 10:56 BP 96/54 L 12/09/22 10:56 Pulse Ox 96 12/09/22 10:56 O2 Del Method 12/09/22 10:56 O2 Flow Rate 2 12/04/22 08:00 BMI result Body Mass Index 29.6 Const: Other: General awake aler t x3, resting comf ortably in no acut e distress. Eyes a nicteric sclera, p upil equal, round, reactive to light , and accommodatio n. Neck? supple no JVD. CVS? regular rate rhythm, Resp iratory lungs sofie r to auscultation, no respiratory di stress, no wheeze, no rhonchi. Gastr ointestinal abdome n soft, nontender, bowel sounds carmen ble, no guarding , no rigidity. Extr emities bilateral lower extremity si gnificant hyperemi a up to mid leg, r ight leg swelling greater than left, improving, + blist ering and weeping. Neuro nonfocal , speech clear. Psyc h appropriate affe ct Since I Objective Data Active Medications Acetaminophen (Acetaminophen 325 Mg Tablet) 650 mg PO Q4H PRN PRN Reason: Fever Last Admin: 12/09/22 12:14 Dose: 650 mg Documented By: RYAN Dextrose (Dextrose 50 % 25 Gm/50 Ml Syringe) 25 gm IVPUSH Q15M PRN; Protocol PRN Reason: per Hypoglycemia Standing Ord. Last Admin: 12/02/22 03:03 Dose: 25 gm Documented By: SERRANX Diphenhydramine HCl (Diphenhydramine Hcl 25 Mg Capsule) 25 mg PO Q6H PRN PRN Reason: Itching Last Admin: 12/08/22 19:51 Dose: 25 mg Documented By: ANTOIC Docusate Sodium (Docusate Sodium 100 Mg Capsule) 200 mg PO DAILY [facility] Last Admin: 12/09/22 08:23 Dose: 200 mg Documented By: SARTHAK Enoxaparin Sodium (Enoxaparin Sodium 40 Mg/0.4 Ml Syringe) 40 mg SUBCUT Q24H [facility] Last Admin: 12/08/22 18:26 Dose: 40 mg Documented By: SARTHAK Glucose (Glucose Gel 15 Gm Gel..Gram.) 15 gm PO Q15M PRN; Protocol PRN Reason: per Hypoglycemia Standing Ord. Piperacillin Sod/Tazobactam (Sod 3.375 gm/ Sodium Chloride) 50 mls @ 100 mls/hr IV Q6H [facility] Last Infusion: 12/09/22 09:08 Dose: 0 mls/hr Documented By: SARTHAK Insulin Human Lispro (Insulin Lispro 100 Unit/Ml 3 Ml Vial) 0 unit SUBCUT QIDACHS [facility]; Protocol Last Admin: 12/09/22 11:35 Dose: 2 unit Documented By: SARTHAK Magnesium Oxide (Magnesium Oxide 400 Mg Tablet) 400 mg PO BIDPC [facility] Last Admin: 12/09/22 08:24 Dose: 400 mg Documented By: SARTHAK Nicotine (Nicotine 21 Mg Patch.Td24) 21 mg TRANSDERMA DAILY [facility] Last Admin: 12/09/22 08:23 Dose: 21 mg Documented By: SARTHAK Ondansetron HCl (Ondansetron Hcl 4 Mg/2 Ml Vial) 4 mg IVPUSH Q6H PRN PRN Reason: Nausea and Vomiting Oxycodone HCl (Oxycodone Hcl Er 10 Mg Tab.Er.12h) 20 mg PO BID [facility] Last Admin: 12/09/22 08:21 Dose: 20 mg Documented By: SARTHAK Oxycodone HCl (Oxycodone Hcl Immed Release 5 Mg Tablet) 10 mg PO Q4H PRN PRN Reason: Pain, Moderate (Pain Scale 4-6 Last Admin: 12/09/22 03:13 Dose: 10 mg Documented By: ANTOIC Oxycodone HCl (Oxycodone Hcl Immed Release 5 Mg Tablet) 20 mg PO Q4H PRN PRN Reason: Pain, Severe (Pain Scale 7-10) Last Admin: 12/09/22 12:13 Dose: 20 mg Documented By: RYAN Pharmacy Consult (Consult Rx Etoh Phenob Im/Po) 1 each MISCELLANE ONCE PRN; Protocol PRN Reason: Consult order Senna (Sennosides 8.6 Mg Tablet) 17.2 mg PO DAILY [facility] Last Admin: 12/09/22 08:22 Dose: 17.2 mg Documented By: SARTHAK Sodium Chloride (0.9 % Sodium Chloride Flush 3 Ml Syringe) 3 ml IVFLUSH QSHIFT [facility] Last Admin: 12/09/22 08:24 Dose: 3 ml Documented By: SARTHAK Labs 12/09/22 06:15 12/09/22 06:15 Labs: Laboratory Results - last 24 hr 12/08/22 12/08/22 12/09/22 16:30 20:35 06:15 MCV 93.1 MCH 31.9 MCHC 34.3 RDW 15.6 Plt Count 379 D MPV 9.5 Immature Gran % (Auto) 4.0 H Neut % (Auto) 63.7 Lymph % (Auto) 14.6 L [place] % (Auto) 15.6 H Eos % (Auto) 1.7 Baso % (Auto) 0.4 Lymph # (Auto) 1.5 [place] # (Auto) 1.6 H Eos # (Auto) 0.2 Baso # (Auto) 0.0 Abs Immat Gran (auto) 0.42 H Absolute Neuts (auto) 6.7 Absolute Nucleated RBC 0.000 Nucleated RBC % (auto) 0.0 Smear Tech's Comments VERIFIED Anion Gap Estim Creat Clear Calc Estimated GFR POC Glucose 127 H 129 H Fasting Glucose Calcium Magnesium Total Bilirubin AST ALT Alkaline Phosphatase Total Protein Albumin 12/09/22 12/09/22 12/09/22 06:15 07:36 10:55 MCV MCH MCHC RDW Plt Count MPV Immature Gran % (Auto) Neut % (Auto) Lymph % (Auto) [place] % (Auto) Eos % (Auto) Baso % (Auto) Lymph # (Auto) [place] # (Auto) Eos # (Auto) Baso # (Auto) Abs Immat Gran (auto) Absolute Neuts (auto) Absolute Nucleated RBC Nucleated RBC % (auto) Smear Tech's Comments Anion Gap 15 Estim Creat Clear Calc 82.2 Estimated GFR > 60 POC Glucose 125 H 154 H Fasting Glucose 129 H Calcium 7.9 L Magnesium 1.7 Total Bilirubin 0.4 AST 13 ALT 10 Alkaline Phosphatase 131 H Total Protein 5.2 L Albumin 2.7 L Assessment and Plan (1) Cellulitis: Status: Acute (2) Hypoglycemia: Status: Acute (3) Hypomagnesemia: Status: Acute Plan 62-year-old female longstanding history of rheumatoid arthritis presents with left lower extremity cellulitis. Initially started on vancomycin and cefepime for broad coverage. During the 1st 24 hours of admission developed fever and became septic requiring septic for dose to fluids an ICU admission for pressors. Patient also went into alcohol withdrawal for which she was treated with phenobarb protocol. Successfully weaned off pressors and transferred to floor. Completed phenobarb protocol 1. Streptococcus pyogenes bacteremia with Lower extremity cellulitis -slowly improving with less edema persistent pain s/p iv ceftriaxone x 5D, now 1 IV Zosyn day 3 , WBC normalized, no fevers, no chills CT right leg showed severe cellulitis but no necrotizing fasciitis, check HIV as per ID recommendation Ultrasound bilateral lower extremity showed no DVT keep leg elevated, soft blood pressure will attempt Lasix Physical therapy recommend home PT 2. Hypoglycemia -normalized, on lispro correctional scale, will resume metformin upon discharge 3. Hypomagnesemia -status post IV repletion repeat magnesium 1.7, placed on Mag oxide 4. Acute hyponatremia -resolved with volume repletion, sodium stable follow BMP 5. Alcohol withdrawal -completed phenobarb protocol 6. Rheumatoid arthritis -will resume Lyrica and baclofen Continue home dose of Oxy Contin and oxycodone as per outpatient dosing, oxycodone dosing was verified with patient's PCP Cayla Peñaloza. 7. Thrombocytopenia improved question related to acute infection. 8. Tobacco use disorder continue nicotine patch 21 mg Full code Lovenox Patient will require ongoing hospitalization for IV antibiotics to treat strep bacteremia. Time Spent With Patient Time: Total time managing care of this patient today ____ minutes. Quality Stroke Does the patient have a stroke diagnosis?: No VTE Prior VTE?: No VTE Risk Level:: Medical - moderate - high VTE Device Contraindication: Treatment Not Indicated VTE Drug Contraindication: N/A - Med Ordered
[2022-12-09] MEDS: Baclofen 10 MG TABLET PO ×2 (14:07→20:19)
[2022-12-09] MEDS: Levothyroxine Sodium 88 MCG TABLET PO (14:07)
[2022-12-09 16:00] VITALS: BP 108/72; PULSE 86; RESP 19; TEMP 36.8; O2SAT 95
[2022-12-09 16:00] LABS: Glucose, Whole Blood 110 mg/dL (60-115)
[2022-12-09 19:34] LABS: Glucose, Whole Blood 154 mg/dL (60-115)
[2022-12-09 19:57] VITALS: BP 130/67; PULSE 88; RESP 19; TEMP 36.7; O2SAT 98
[2022-12-09] MEDS: Enoxaparin Sodium 40 MG/0.4 ML SYRINGE SUBCUT (20:19)
[2022-12-09] MEDS: Pregabalin 75 MG CAPSULE PO (20:21)
[2022-12-10] VITALS (7 sets, daily range): BP systolic 98–138; BP diastolic 55–75; PULSE 76–87; RESP 16–20; TEMP 36.4–37.1; O2SAT 93–98; BMI 30.2
[2022-12-10] MEDS: Piperacillin Sodium/Tazobactam 3.375 GM in 0.9 % Sodium Chloride 50 ML IV ×2 (01:34→08:21)
[2022-12-10] MEDS: oxyCODONE HCl Immed Release 5 MG TABLET 10 MG PO (01:35)
[2022-12-10] MEDS: 0.9 % Sodium Chloride Flush 3 ML SYRINGE IVFLUSH ×4 (01:40→23:55)
[2022-12-10] MEDS: Acetaminophen 325 MG TABLET 650 MG PO ×3 (04:09→14:57)
[2022-12-10] MEDS: Levothyroxine Sodium 88 MCG TABLET PO (04:10)
[2022-12-10 06:19] LABS: HIV AB/AG Nonreactive (Nonreactive); HIV Num 1 0.06 S/CO (0.00-0.99)
[2022-12-10] MEDS: Venlafaxine HCl ER 150 MG CAP.ER.24H PO (08:21)
[2022-12-10] MEDS: Pregabalin 75 MG CAPSULE PO ×2 (08:21→20:06)
[2022-12-10] MEDS: Docusate Sodium 100 MG CAPSULE 200 MG PO (08:21)
[2022-12-10] MEDS: Baclofen 10 MG TABLET PO ×3 (08:21→20:06)
[2022-12-10] MEDS: Nicotine 21 MG PATCH.TD24 TRANSDERMA (08:22)
[2022-12-10] MEDS: Magnesium Oxide 400 MG TABLET PO ×2 (08:22→18:02)
[2022-12-10] MEDS: Sennosides 8.6 MG TABLET 17.2 MG PO (08:22)
[2022-12-10] MEDS: oxyCODONE HCl Immed Release 5 MG TABLET 20 MG PO ×4 (10:52→23:56)
[2022-12-10] MEDS: oxyCODONE HCl ER 10 MG TAB.ER.12H 20 MG PO ×2 (10:53→20:06)
--- NOTE | 2022-12-10 11:37 | P.CDIC_ITS ---
CDI Concurrent Query Documentation Clarification: PHYSICIAN'S DOCUMENTATION REQUEST Date of Query: 12/10/22 1130 Patient Name: Evelyne Claudio Admit Date: 12/01/22 Dear Doctor, A review of the medical record indicates additional documentation may be needed. Please review below and update the documentation accordingly. Clinical Indicators: Risk Factors/Clinical Indicators/Treatments PN: Streptococcus pyogens bacteremia with lower extremity cellulitis. Ceftriaxone, Zosyn, Humalog ICU note - Diabetes Patient scratched LLE resulted in multiple abrasions and excoriations, weeping, edema, demarcation. Please clarify the relationship between these conditions: Cellulitis due to/associated with Diabetes * Yes, [ ] is related to / associated with / due to [ ] * No, [ ] is not related to / associated with / due to [ ] * Unable to determine Use of terms such as suspected, likely, concern for, or probable (associated with a specific diagnosis that is being evaluated, monitored, or treated as if it exists) are acceptable and can be coded in the inpatient setting, when documented at the time of discharge. Thank you, Cindy Dillon [facility], CDIS Extension: [phone] Please use your independent medical judgment in providing your response. THIS QUERY IS PART OF THE PERMANENT MEDICAL RECORD Provider Response: Other Other Diagnosis: cellulitis not related to diabetes
[2022-12-10 12:01] LABS: Glucose, Whole Blood 107 mg/dL (60-115)
[2022-12-10 12:05] LABS: Glucose, Whole Blood 134 mg/dL (60-115)
--- NOTE | 2022-12-10 12:59 | P.PNIM_ITS ---
Subjective Subjective Date of Service: 12/10/22 Interval History: Feeling better this morning, less swelling bilateral lower extremity, complaining of painful lump right medial thigh, denies fever, no chills, no nausea, no vomiting, no abdominal pain, tolerating diet. Review of Systems Review of Systems: Yes all other systems are reviewed and are negative Physical Exam Vital Signs: Vital Signs: Last Vital Signs Temp 98.7 F 12/10/22 11:05 Pulse 84 12/10/22 11:05 Resp 16 12/10/22 11:05 BP 114/55 L 12/10/22 11:05 Pulse Ox 97 12/10/22 11:05 O2 Del Method 12/10/22 11:05 O2 Flow Rate 2 12/04/22 08:00 BMI result Body Mass Index 30.2 Const: Other: General awake alert x3, resting comfortably in no acute distress. Eyes anicteric sclera, people equal round reactive to light and accommodation Neck? supple no JVD. CVS? regular rate rhythm, Respiratory lungs clear to auscultation, no respiratory distress, no wheeze, no rhonchi. Gastrointestinal abdomen soft, nontender, bowel sounds audible, no guarding , no rigidity. Extremities bilateral lower extremity edema improved, persistent hyperemic rash with blistering and weeping, firm right medial thigh mass with hyperemia and tenderness to palpation, Neuro nonfocal , speech clear. Psych appropriate affect Objective Data Active Medications Acetaminophen (Acetaminophen 325 Mg Tablet) 650 mg PO Q4H PRN PRN Reason: Fever Last Admin: 12/10/22 10:53 Dose: 650 mg Documented By: RYAN Baclofen (Baclofen 10 Mg Tablet) 10 mg PO TID EVIN Last Admin: 12/10/22 08:21 Dose: 10 mg Documented By: FOGARTSuri Dextrose (Dextrose 50 % 25 Gm/50 Ml Syringe) 25 gm IVPUSH Q15M PRN; Protocol PRN Reason: per Hypoglycemia Standing Ord. Last Admin: 12/02/22 03:03 Dose: 25 gm Documented By: SERRANX Diphenhydramine HCl (Diphenhydramine Hcl 25 Mg Capsule) 25 mg PO Q6H PRN PRN Reason: Itching Last Admin: 12/08/22 19:51 Dose: 25 mg Documented By: ANTOIC Docusate Sodium (Docusate Sodium 100 Mg Capsule) 200 mg PO DAILY [facility] Last Admin: 12/10/22 08:21 Dose: 200 mg Documented By: SARTHAK Enoxaparin Sodium (Enoxaparin Sodium 40 Mg/0.4 Ml Syringe) 40 mg SUBCUT Q24H [facility] Last Admin: 12/09/22 20:19 Dose: 40 mg Documented By: LAYA Glucose (Glucose Gel 15 Gm Gel..Gram.) 15 gm PO Q15M PRN; Protocol PRN Reason: per Hypoglycemia Standing Ord. Piperacillin Sod/Tazobactam (Sod 3.375 gm/ Sodium Chloride) 50 mls @ 100 mls/hr IV Q6H [facility] Last Infusion: 12/10/22 09:04 Dose: 0 mls/hr Documented By: SARTHAK Insulin Human Lispro (Insulin Lispro 100 Unit/Ml 3 Ml Vial) 0 unit SUBCUT QIDACHS [facility]; Protocol Last Admin: 12/10/22 12:02 Dose: Not Given Documented By: SRATHAK Non-Admin Reason: No Insulin Coverage Levothyroxine Sodium (Levothyroxine Sodium 88 Mcg Tablet) 88 mcg PO DAILY@0600 [facility] Last Admin: 12/10/22 04:10 Dose: 88 mcg Documented By: LAYA Magnesium Oxide (Magnesium Oxide 400 Mg Tablet) 400 mg PO BIDPC [facility] Last Admin: 12/10/22 08:22 Dose: 400 mg Documented By: SARTHAK Nicotine (Nicotine 21 Mg Patch.Td24) 21 mg TRANSDERMA DAILY [facility] Last Admin: 12/10/22 08:22 Dose: 21 mg Documented By: SARTHAK Ondansetron HCl (Ondansetron Hcl 4 Mg/2 Ml Vial) 4 mg IVPUSH Q6H PRN PRN Reason: Nausea and Vomiting Oxycodone HCl (Oxycodone Hcl Immed Release 5 Mg Tablet) 20 mg PO Q4H PRN PRN Reason: Pain, Severe (Pain Scale 7-10) Last Admin: 12/10/22 10:52 Dose: 20 mg Documented By: RYAN Oxycodone HCl (Oxycodone Hcl Er 10 Mg Tab.Er.12h) 20 mg PO BID [facility] Last Admin: 12/10/22 10:53 Dose: 20 mg Documented By: RYAN Pharmacy Consult (Consult Rx Etoh Phenob Im/Po) 1 each MISCELLANE ONCE PRN; Protocol PRN Reason: Consult order Pregabalin (Pregabalin 75 Mg Capsule) 75 mg PO BID [facility] Last Admin: 12/10/22 08:21 Dose: 75 mg Documented By: SARTHAK Senna (Sennosides 8.6 Mg Tablet) 17.2 mg PO DAILY [facility] Last Admin: 12/10/22 08:22 Dose: 17.2 mg Documented By: SARTHAK Sodium Chloride (0.9 % Sodium Chloride Flush 3 Ml Syringe) 3 ml IVFLUSH QSHIFT [facility] Last Admin: 12/10/22 08:22 Dose: 3 ml Documented By: SARTHAK Venlafaxine HCl (Venlafaxine Hcl Er 150 Mg Cap.Er.24h) 150 mg PO DAILY [facility] Last Admin: 12/10/22 08:21 Dose: 150 mg Documented By: SARTHAK Labs 12/09/22 06:15 12/09/22 06:15 Labs: Laboratory Results - last 24 hr 12/09/22 12/09/22 12/10/22 15:19 19:15 05:17 POC Glucose 110 154 H HIV 1&2 Ab/P24 Ag 4thGn Nonreactive 12/10/22 12/10/22 07:19 11:08 POC Glucose 107 134 H HIV 1&2 Ab/P24 Ag 4thGn Assessment and Plan (1) Cellulitis: Status: Acute (2) Hypoglycemia: Status: Acute (3) Hypomagnesemia: Status: Acute Plan 62-year-old female longstanding history of rheumatoid arthritis presents with left lower extremity cellulitis. Initially started on vancomycin and cefepime for broad coverage. During the 1st 24 hours of admission developed fever and became septic requiring septic for dose to fluids an ICU admission for pressors. Patient also went into alcohol withdrawal for which she was treated with phenobarb protocol. Successfully weaned off pressors and transferred to floor. Completed phenobarb protocol 1. Streptococcus pyogenes bacteremia with Lower extremity cellulitis not related to diabetes blood sugars well controlled -slowly improving with less edema and pain s/p iv ceftriaxone x 5D, now on IV Zosyn day 4 , WBC normalized, no fevers, no chills, will DC Zosyn and place on by mouth Augmentin 875 mg b.i.d. times [address] right leg showed severe cellulitis but no necrotizing fasciitis, HIV nonreactive Ultrasound bilateral lower extremity showed no DVT keep leg elevated, soft blood pressure Physical therapy recommend home PT Recommend ambulation 2. Hypoglycemia -normalized, on lispro correctional scale, will resume metformin upon discharge 3. Hypomagnesemia -status post IV repletion repeat magnesium 1.7, placed on Mag oxide 4. Acute hyponatremia -resolved with volume repletion, sodium stable follow BMP 5. Alcohol withdrawal -completed phenobarb protocol 6. Rheumatoid arthritis -continue Lyrica and baclofen Continue home dose of Oxy Contin and oxycodone as per outpatient dosing, oxycodone dosing was verified with patient's PCP Cayla Peñaloza. 7. Thrombocytopenia improved question related to acute infection. 8. Tobacco use disorder continue nicotine patch 21 mg 9. Right thigh mass, right lower extremity ultrasound obtained, to rule out abscess surgical consult requested Full code Lovenox Patient will require ongoing hospitalization for monitoring and further workup of right thigh mass and for right lower extremity cellulitis Time Spent With Patient Time: Total time managing care of this patient today ____ minutes. Quality Stroke Does the patient have a stroke diagnosis?: No VTE Prior VTE?: No VTE Risk Level:: Medical - moderate - high VTE Device Contraindication: Treatment Not Indicated VTE Drug Contraindication: N/A - Med Ordered
--- NOTE | 2022-12-10 13:45 | P.CONGS_ITS ---
History of Present Illness Consult details Consult date: 12/10/22 Narrative: 62-year-old female, referred because of a lump on the right thigh, as well as cellulitis on both lower extremities. She was admitted to the hospital last 12/01/2022 because of abrasions cellulitis of both lower legs. She says that she started when she had been scratching these areas. She had developed some bli sters as well. She has been in the hospital for cellulitis and has been on antibiotic treatment She also complained of a lump on the right medial thigh earlier today. I was therefore consulted for possible abscess. Review of Systems Constitutional: Constitutional: Denies chills and Denies fever(s) Cardiovascular: Cardiovascular: Denies chest pain, Denies dyspnea and Denies dyspnea on exertion Respiratory: Respiratory: Denies cough, Denies dyspnea and Denies dyspnea on exertion Gastrointestinal: Gastrointestinal: Denies hematochezia and Denies change in bowel habits Genitourinary: Genitourinary: Denies hematuria Musculoskeletal: Musculoskeletal: Denies back pain and Denies limited range of motion Neurologic: Denies focal weakness and Denies convulsions Psychiatric: Psychiatric: Denies depression and Denies mood swings PMF Past Medical History Medical History Alcohol abuse Carpal tunnel syndrome Chronic bronchitis Diabetes Mass of right thigh Neuropathy Osteoarthritis Osteomyelitis Pilonidal cyst Pleurisy Pulmonary embolism Rheumatoid arthritis Seronegative rheumatoid arthritis Smoker Family History Family History Mother CHF (congestive heart failure) Stroke Uterine cancer Father CHF (congestive heart failure) Sister Diabetes Brother Diabetes Pulmonary embolism Family history: reviewed and not pertinent Surgical History Surgical History H/O hernia repair History of left knee replacement (~2017) History of surgery on arm History of total right knee replacement (TKR) Previous back surgery (~2016) Social History Social History Household Members: None Housing: Unknown / Unable to assess Are you a primary customer care professional to a significant other at home: No Unable to assess alcohol history related to: Unable to respond Alcohol intake: current Alcohol intake frequency: a few times a week Alcohol type: hard liquor Patient Tobacco Use Status: Refuse Tobacco use screen Tobacco use type: Cigarette Cigarette Packs Per Day: 1 Cigarettes Per Day: 20 Years Smoked: 40 service: No Current occupational status: unemployed Meds Allergies Allergy/AdvReac Type Severity Reaction Status Date / Time lisinopril Allergy Intermediate Swelling Verified 10/04/22 10:39 clavulanic acid Allergy Mild RASH Verified 10/04/22 10:39 [From Augmentin] aripiprazole [From ABILIFY] AdvReac Intermediate EDEMA Verified 10/04/22 10:39 duloxetine [From CYMBALTA] AdvReac Intermediate WT Verified 10/04/22 10:39 GAIN/EDEMA ibuprofen AdvReac Unknown kidney Verified 10/04/22 10:39 function Active Medications: Current Medications Acetaminophen (Acetaminophen 325 Mg Tablet) 650 mg PO Q4H PRN PRN Reason: Fever Last Admin: 12/10/22 10:53 Dose: 650 mg Baclofen (Baclofen 10 Mg Tablet) 10 mg PO TID [facility] Last Admin: 12/10/22 08:21 Dose: 10 mg Dextrose (Dextrose 50 % 25 Gm/50 Ml Syringe) 25 gm IVPUSH Q15M PRN; Protocol PRN Reason: per Hypoglycemia Standing Ord. Last Admin: 12/02/22 03:03 Dose: 25 gm Diphenhydramine HCl (Diphenhydramine Hcl 25 Mg Capsule) 25 mg PO Q6H PRN PRN Reason: Itching Last Admin: 12/08/22 19:51 Dose: 25 mg Docusate Sodium (Docusate Sodium 100 Mg Capsule) 200 mg PO DAILY [facility] Last Admin: 12/10/22 08:21 Dose: 200 mg Enoxaparin Sodium (Enoxaparin Sodium 40 Mg/0.4 Ml Syringe) 40 mg SUBCUT Q24H [facility] Last Admin: 12/09/22 20:19 Dose: 40 mg Glucose (Glucose Gel 15 Gm Gel..Gram.) 15 gm PO Q15M PRN; Protocol PRN Reason: per Hypoglycemia Standing Ord. Insulin Human Lispro (Insulin Lispro 100 Unit/Ml 3 Ml Vial) 0 unit SUBCUT QIDACHS [facility]; Protocol Last Admin: 12/10/22 12:02 Dose: Not Given Levothyroxine Sodium (Levothyroxine Sodium 88 Mcg Tablet) 88 mcg PO DAILY@0600 [facility] Last Admin: 12/10/22 04:10 Dose: 88 mcg Magnesium Oxide (Magnesium Oxide 400 Mg Tablet) 400 mg PO BIDPC [facility] Last Admin: 12/10/22 08:22 Dose: 400 mg Nicotine (Nicotine 21 Mg Patch.Td24) 21 mg TRANSDERMA DAILY [facility] Last Admin: 12/10/22 08:22 Dose: 21 mg Ondansetron HCl (Ondansetron Hcl 4 Mg/2 Ml Vial) 4 mg IVPUSH Q6H PRN PRN Reason: Nausea and Vomiting Oxycodone HCl (Oxycodone Hcl Immed Release 5 Mg Tablet) 20 mg PO Q4H PRN PRN Reason: Pain, Severe (Pain Scale 7-10) Last Admin: 12/10/22 10:52 Dose: 20 mg Oxycodone HCl (Oxycodone Hcl Er 10 Mg Tab.Er.12h) 20 mg PO BID [facility] Last Admin: 12/10/22 10:53 Dose: 20 mg Pharmacy Consult (Consult Rx Etoh Phenob Im/Po) 1 each MISCELLANE ONCE PRN; Protocol PRN Reason: Consult order Pregabalin (Pregabalin 75 Mg Capsule) 75 mg PO BID [facility] Last Admin: 12/10/22 08:21 Dose: 75 mg Senna (Sennosides 8.6 Mg Tablet) 17.2 mg PO DAILY [facility] Last Admin: 12/10/22 08:22 Dose: 17.2 mg Sodium Chloride (0.9 % Sodium Chloride Flush 3 Ml Syringe) 3 ml IVFLUSH QSHIFT [facility] Last Admin: 12/10/22 08:22 Dose: 3 ml Venlafaxine HCl (Venlafaxine Hcl Er 150 Mg Cap.Er.24h) 150 mg PO DAILY [facility] Last Admin: 12/10/22 08:21 Dose: 150 mg Home Medications Medication Instructions Recorded Confirmed Last Taken Type amlodipine 2.5 mg tablet 1 tab PO DAILY 08/12/20 12/02/22 Unknown History baclofen 10 mg tablet 1 tab PO TID 08/12/20 12/02/22 Unknown History blood sugar diagnostic (FreeStyle 08/12/20 07/19/22 Unknown History Lite Strips) bupropion HCl 300 mg 24 hr tablet, 1 tab PO DAILY 08/12/20 12/02/22 Unknown History extended release docusate sodium 100 mg capsule 1 cap PO BID 08/12/20 12/02/22 Unknown History (DOK) levothyroxine 88 mcg tablet 1 tab PO QAM 08/12/20 12/02/22 Unknown History (Euthyrox) metformin 850 mg tablet 1 tab PO BID 08/12/20 12/02/22 Unknown History omeprazole 20 mg capsule,delayed 1 cap PO DAILY 08/12/20 12/02/22 Unknown History release oxybutynin chloride 10 mg 1 tab PO DAILY 08/12/20 12/02/22 Unknown History tablet,extended release 24 hr oxycodone 20 mg tablet,crush 1 tab PO Q12H 08/12/20 12/02/22 Unknown History resistant,extended release 12 hr (OxyContin) simvastatin 20 mg tablet 1 tab PO BEDTIME 08/12/20 12/02/22 Unknown History venlafaxine 150 mg 1 cap PO DAILY 08/12/20 12/02/22 Unknown History capsule,extended release 24 hr albuterol sulfate 90 mcg/actuation 1 puff inhalation Q4H 11/08/21 12/02/22 Unknown History aerosol inhaler clotrimazole-betamethasone 1 1 appl topical BID 11/08/21 12/02/22 Unknown History %-0.05 % topical cream oxycodone 10 mg tablet 10 mg PO Q4H PRN Pain 07/19/22 12/02/22 Unknown History pregabalin 75 mg capsule 75 mg PO BID 10/04/22 12/02/22 Unknown History Physical Exam Vital Signs: Vital Signs: Last Vital Signs Temp 98.7 F 12/10/22 11:05 Pulse 84 12/10/22 11:05 Resp 16 12/10/22 11:05 BP 114/55 L 12/10/22 11:05 Pulse Ox 97 12/10/22 11:05 O2 Del Method 12/10/22 11:05 O2 Flow Rate 2 12/04/22 08:00 BMI result Body Mass Index 30.2 Const: General: comfortable and no acute distress Orie ntation/consciousness: patient oriented x3 Neck: Neck: Yes no lymphadenopathy Resp: Auscultation: clear to auscultation bilaterally Cardio: Rhythm: regular rhythm GI: Palpation (GI): Soft to palpation, nontender and no guarding Neuro: General: patient oriented x3 Extrem: Other: Edema both lower legs, with note of diffuse blistering, patchy redness, and some areas of superficial skin abrasion, no pus; On the right proximal medial thigh is note of a vague tender mass, about 3-4 cm in diameter, appears subcutaneous in location, no skin redness or fluctuance Results Labs 12/09/22 06:15 12/09/22 06:15 Labs: Abnormal lab results 12/09/22 12/10/22 Range/Units 19:15 11:08 POC Glucose 154 H 134 H (60-115) mg/dL Urine 12/02/22 Range/Units 03:55 Urine Color Yellow Urine Appearance Clear Urine pH 6.0 (5.0-9.0) Ur Specific [place] 1.020 (1.005-1.025) Urine Protein 30 (1+) H (Neg-Trace) mg/dL Urine Glucose (UA) 100 H (Negative) mg/dL All other labs normal. Assessment and Plan (1) Cellulitis: Status: Acute She had developed cellulitis of both lower legs after scratching this. She continues to have this bullous changes which I have opened and drained. I have changed all her dressings. I have wrapped both lower legs with Noah roll. She can continue with the same wound care. I have instructed her to keep both legs elevated as well to help with the edema. (2) Mass of right thigh: Status: Acute Her ultrasound this morning shows subcutaneous fat edema on the area. There is no drainable abscess. I told her that we do not need to do an I and D at this time. I will follow while she is in the hospital. Time Spent With Patient Time: Total time managing care of this patient today ____ minutes. Procedures Date of Service Date of Service: 12/10/22
--- NOTE | 2022-12-10 15:24 | MHC.CM.PN ---
per rounds pt has abcess on right thigh no anticaptred dc date at this time plan remains home with hvns per pt receommendation
[2022-12-10 15:38] LABS: Glucose, Whole Blood 144 mg/dL (60-115)
[2022-12-10] MEDS: Enoxaparin Sodium 40 MG/0.4 ML SYRINGE SUBCUT (18:02)
[2022-12-10 20:36] LABS: Glucose, Whole Blood 122 mg/dL (60-115)
[2022-12-11] VITALS: BP 116/62; PULSE 80; RESP 20; TEMP 37.4; O2SAT 96
[2022-12-11 03:37] VITALS: BP 115/63; PULSE 77; RESP 20; TEMP 37.2; O2SAT 95
[2022-12-11 05:24] VITALS: BMI 30.5
[2022-12-11] MEDS: Levothyroxine Sodium 88 MCG TABLET PO (05:49)
[2022-12-11 07:04] LABS: Glucose, Whole Blood 111 mg/dL (60-115)
[2022-12-11 07:09] VITALS: BP 140/74; PULSE 82; RESP 19; TEMP 36.4; O2SAT 95
[2022-12-11] MEDS: Baclofen 10 MG TABLET PO (07:57)
[2022-12-11] MEDS: Pregabalin 75 MG CAPSULE PO (07:57)
[2022-12-11] MEDS: oxyCODONE HCl ER 10 MG TAB.ER.12H 20 MG PO (07:57)
[2022-12-11] MEDS: Magnesium Oxide 400 MG TABLET PO (07:57)
[2022-12-11] MEDS: Nicotine 21 MG PATCH.TD24 TRANSDERMA (07:58)
[2022-12-11] MEDS: Venlafaxine HCl ER 150 MG CAP.ER.24H PO (07:58)
[2022-12-11] MEDS: Docusate Sodium 100 MG CAPSULE 200 MG PO (07:58)
[2022-12-11] MEDS: oxyCODONE HCl Immed Release 5 MG TABLET 20 MG PO ×2 (08:04→12:10)
[2022-12-11] MEDS: 0.9 % Sodium Chloride Flush 3 ML SYRINGE IVFLUSH (08:21)
--- NOTE | 2022-12-11 11:36 | MHC.CM.PN ---
pt being dcd today with [facility]
[2022-12-11 12:07] LABS: Glucose, Whole Blood 104 mg/dL (60-115)
[2022-12-11] MEDS: Acetaminophen 325 MG TABLET 650 MG PO (12:10)
--- NOTE | 2022-12-11 13:11 | PM.DS ---
DS: Providers Provider Date of Service: 12/11/22 Date of admission: 12/01/22 18:45 Primary care physician: Cayla Peñaloza NP Consults: 12/02/22 02:26 Consult to Critical Care Stat Consulting Provider: Simeon Garcia Reason for consultation: Shock, need for pressors 12/07/22 09:07 Consult to Infectious Diseases Routine Consulting Provider: Charlotte Mendoza Reason for consultation: gm pos bacteremia 12/10/22 09:46 Consult to General Surgery Routine Consulting Provider: Jun Appiah Reason for consultation: rt thigh ? abscess Has provider been notified: No DS: Diagnosis Discharge Diagnosis (1) Cellulitis: Status: Acute (2) Mass of right thigh: Status: Acute DS: Summary Hospital Course Hospital Course: Date of Service: 12/01/22 Chief Complaint: cellulitis 62 yo female with history of rheumatoid arthritis on Plaquenil since June 2019, chronic bronchitis, PVD, pulmonary embolism in 2019 (no longer on anticoagulation), history of a right knee replacement in August 2022 who presents to the ER from home via EMS c/o bilateral leg pain, redness and swelling. She reports on 11/28 she was scratching her LLE that resulted in multiple abrasions and excoriations on her leg. They developed into flat blisters and then became fluid filled. She then developed a sore throat and a headache the next day. She noticed redness of her left lower leg and warmth. She has had chills and generally not feeling well.? Developed lower extremity left greater than right erythema and warmth and presented to ER. Hospital course 62-year-old female longstanding history of rheumatoid arthritis presents with left lower extremity cellulitis.? Initially started on vancomycin and cefepime for broad coverage.? During the 1st 24 hours of admission developed fever and became septic requiring septic for dose to fluids an ICU admission for pressors.? Patient also went into alcohol withdrawal for which she was treated with phenobarb protocol.? Successfully weaned off pressors and transferred to floor.? Completed phenobarb protocol 1. Streptococcus pyogenes bacteremia with Lower extremity cellulitis and sepsis , patient treated with IV antibiotics with good response WBC normalized, bilateral leg edema significantly improved CT right leg showed severe cellulitis but no necrotizing fasciitis , Doppler study lower extremity showed no DVT, HIV nonreactive patient evaluated by General surgery they recommend daily dressing and outpatient wound care follow-up due to diffuse blistering , patient is being discharged home on Ceftin 500 mg twice daily on 9 more days recommend to keep leg elevated, seen by Physical therapy they recommend home PT. ? 2. Right medial thigh mass ultrasound showed subcutaneous fat, with no drainable abscess recommend outpatient follow-up no surgical intervention required. 3. Hypomagnesemia repleted being discharged on magnesium oxide 4. Acute hyponatremia-resolved with volume repletion. 5. Alcohol withdrawal -completed phenobarb protocol strongly recommend to abstain from alcohol 6. Rheumatoid arthritis continue home medications 7. Thrombocytopenia improved question related to acute infection. 8. Tobacco use disorder continue nicotine patch 21 mg, counseling done 9. Diabetes mellitus continue metformin Time Spent with Patient Time attestation: Total time managing care of this patient today ____ minutes. Discharge coordination time: Greater than 30 minutes Quality: Safe Use of Opioids Does Pt have an Active Cancer Diagnosis on the Problem List?: No Quality: Stroke Does the patient have a stroke diagnosis?: No Physical Exam Vital Signs: Vital Signs: Last Vital Signs Temp 97.6 F 12/11/22 07:09 Pulse 82 12/11/22 07:09 Resp 19 12/11/22 07:09 BP 140/74 H 12/11/22 07:09 Pulse Ox 95 12/11/22 07:09 O2 Del Method 12/11/22 07:09 O2 Flow Rate 2 12/04/22 08:00 BMI result Body Mass Index 30.5 Const: Other: General awake aler t x3, resting comf ortably in no acut e distress. Eyes a nicteric sclera, p eople equal round reactive to light and accommodation Neck? supple no JV D. CVS? regular ra te rhythm, Respira tory lungs clear t o auscultation, no respiratory distr ess, no wheeze, no rhonchi. Gastroin testinal abdomen s oft, nontender, cash wel sounds audible , no guarding , no rigidity. Edema b oth lower legs imp roved, diffuse bli stering, patchy re dness, and some ar eas of superficial skin abrasion, no pus; On the right proximal medial t high is a vague te nder mass, about 3 -4 cm in diameter, appears subcutane ous in location, n o skin redness or fluctuance Neuro n onfocal Psych appr opriate affect DS: Data Data Completed and Pending Labs on day of discharge: Laboratory Results - last 24 hr 12/10/22 12/10/22 12/11/22 15:30 20:30 07:00 POC Glucose 144 H 122 H 111 12/11/22 12:03 POC Glucose 104 Discharge Plan Discharge Anticipated Discharge Date/Time: 12/11/22 10:28 Patient Disposition: Home Health Service Discharge Diagnosis: Streptococcus pyogenes bacteremia Bilateral lower extremity cellulitis Hyponatremia Hypo magnesemia Referrals: [facility] [Other] - 1 Week Cayla Peñaloza NP [Primary Care Provider] - 1 Week Discharge Medications: New nicotine 21 mg/24 hr Patch 24 Hour 21 mg transdermal DAILY Qty: 28 0RF magnesium oxide 400 mg (241.3 mg magnesium) Tablet 400 mg PO BIDPC Qty: 60 0RF cefuroxime axetil 500 mg Tablet 500 mg PO Q12H Qty: 18 0RF Continued hydroxychloroquine 200 mg tablet 200 mg PO BID Qty: 60 2RF oxybutynin chloride 10 mg tablet extended release 24hr 1 tab PO DAILY metformin 850 mg tablet 1 tab PO BID venlafaxine 150 mg capsule,extended release 24hr 1 cap PO DAILY (DME) FreeStyle Lite Strips Strip 1 strip MISCELLANEOUS BID levothyroxine [Euthyrox] 88 mcg tablet 1 tab PO QAM baclofen 10 mg tablet 1 tab PO TID simvastatin 20 mg tablet 1 tab PO BEDTIME docusate sodium [DOK] 100 mg capsule 1 cap PO BID omeprazole 20 mg capsule,delayed release(DR/EC) 1 cap PO DAILY bupropion HCl 300 mg tablet extended release 24 hr 1 tab PO DAILY oxycodone [OxyContin] 20 mg tablet,oral only,ext.rel.12 hr 1 tab PO Q12H albuterol sulfate 90 mcg/actuation HFA aerosol inhaler 1 puff inhalation Q4H clotrimazole-betamethasone 1-0.05 % cream 1 appl topical BID oxycodone 10 mg tablet 10 mg PO Q4H PRN (Reason: Pain) pregabalin 75 mg capsule 75 mg PO BID Discontinued amlodipine 2.5 mg tablet 1 tab PO DAILY Discharge Orders: Discharge Order (Routine); Ordered 12/11/22 Ordered By: Nayyer Ghias Diet: Diabetic diet Activity on Discharge: As tolerated Stand Alone Forms: Patient Portal Discharge page Care Plan Goals: For Bilateral lower extremity cellulitis take Ceftin 500 mg twice daily for 9 more days, keep leg elevated, keep both legs wrapped with Noah roll, follow-up with wound clinic Continue nicotine patch ,no smoking while on nicotine patch. Complete abstinence from alcohol but caused low magnesium and low sodium levels Health Concerns: Take all home medications as prescribed Plan of Treatment: Follow-up with primary care physician call for appointment, follow up at Wound Clinic call to make appointment Assessment: As above
--- NOTE | 2022-12-11 13:36 | W.MHC.F2F ---
Service Date Service Date: 12/11/22 Encounter Date of encounter: 12/11/22 Reasons for Services Signs and symptoms assessed: Bilateral lower extremity cellulitis with blistering and deconditioning Reason for senior care: wound care and medication management Reason for physical therapy: home safety and mobility Homebound: Leaving the home is medically contraindicated at this time without the asist of a device and/or another person due th the listed conditions above and below. Reason homebound: pain with ambulation and weakness related to hospital stay Certification: Based on the above findings, I certify that this patient is confined to the home and needs intermittent senior care care, physical therapy and/or speech therapy, or continues to need occupational therapy. The patient is under my care, and I have initiated the establishment of the plan of care. The patient will be followed by a physician who will periodically review the plan of care. Time Spent With Patient Time: Total time managing care of this patient today ____ minutes.
== END 2022-12-11 14:00 | disposition home health service (06) | DRG 871 ==
LOC: HO.ED 18:40 → HO.EDOVER 18:50 → HO.ICU 12-02 03:05 → HO.IMC 12-04 13:25
PROVIDERS: Internal Medicine Pulmonary Disease; Nurse Practitioner Family; Physician Assistant; Student in an Organized Health Care Education/Training Program; Admitting Provider Hospitalist; Emergency Provider Internal Medicine; PCP Nurse Practitioner Family; Visit Provider Hospitalist
DX: A41.9 Sepsis, unspecified organism (principal); R65.21 Severe sepsis with septic shock; E87.1 Hypo-osmolality and hyponatremia; L03.116 Cellulitis of left lower limb; L03.115 Cellulitis of right lower limb; N17.9 Acute kidney failure, unspecified; F10.139 Alcohol abuse with withdrawal, unspecified; E11.40 Type 2 diabetes mellitus with diabetic neuropathy, unspecified; E11.51 Type 2 diabetes mellitus with diabetic peripheral angiopathy without gangrene; E11.649 Type 2 diabetes mellitus with hypoglycemia without coma; E83.42 Hypomagnesemia; B37.2 Candidiasis of skin and nail; E86.1 Hypovolemia; M06.00 Rheumatoid arthritis without rheumatoid factor, unspecified site; E87.6 Hypokalemia; E88.09 Other disorders of plasma-protein metabolism, not elsewhere classified; D69.6 Thrombocytopenia, unspecified; R22.41 Localized swelling, mass and lump, right lower limb; B95.0 Streptococcus, group A, as the cause of diseases classified elsewhere; Z20.822 Contact with and (suspected) exposure to COVID-19; Z86.711 Personal history of pulmonary embolism; Z88.1 Allergy status to other antibiotic agents; Z88.6 Allergy status to analgesic agent; Z88.8 Allergy status to other drugs, medicaments and biological substances; Z79.84 Long term (current) use of oral hypoglycemic drugs; Z79.899 Other long term (current) drug therapy
CPT/HCPCS: 36415; 71045; 73564; 73701; 74176; 76882; 80048; 80053; 80076; 80202; 80307; 81001; 82040; 82077; 82550; 82803; 82947; 83605; 83735; 83880; 84100; 85007; 85025; 85027; 85610; 85652; 85730; 86140; 87040; 87147; 87186; 87205; 87389; 87635; 92950; 93005; 93306; 93356; 93925; 93970; 97110; 97116; 97162; 97166; 97530; 97535; 99285; C1758; J0131; J0692; J0696; J1170; J1650; J1940; J2270; J2405; J2543; J2560; J3010; J3370; J3475; P9047; Q9967

== ENCOUNTER 2022-12-12 09:26 | Outpatient (RCR) | payer MEDICARE, SELFPAY | END 2022-12-27 16:00 | disposition home or self-care (01) | LOC: HO.WCC 09:26 | PROVIDERS: PCP Nurse Practitioner Family; Visit Provider Surgery | DX: E11.620 Type 2 diabetes mellitus with diabetic dermatitis (principal); F19.10 Other psychoactive substance abuse, uncomplicated | CPT/HCPCS: 97597; 97598; 99212 ==

== ENCOUNTER 2023-01-21 11:10 | Outpatient (REF) | payer MEDICARE, SELFPAY ==
[2023-01-21 13:48] LABS: MANUAL DIFF FLAG NO
[2023-01-21 13:59] LABS: Basophils Percent Auto 0.6 % (0-2); Eosinophils Absolute Auto 0.3 X10*3/uL (0.0-0.4); Eosinophils Percent Auto 4.3 % (0-4); Hematocrit 31.5 % (37.0-47.0); Hemoglobin 10.3 g/dl (12.0-16.0); Imm Gran Abs Auto 0.01 X10*3/uL (0.00-0.03); Imm Gran Pct Auto 0.1 % (0.0-0.4); Lymphocytes Absolute Auto 1.7 X10*3/uL (1.2-4.9); Lymphocytes Percent Auto 25.7 % (20-40); Mean Corpuscular HGB Conc 32.7 g/dl (31.0-35.0); Mean Corpuscular Hemoglobin 30.7 pg (27.0-33.0); Mean Corpuscular Volume 93.8 fL (80.0-98.0); Mean Platelet Volume 9.6 fL (9.4-12.3); Monocytes Absolute Auto 0.9 X10*3/uL (0.1-1.2); Monocytes Percent Auto 13.5 % (2-11); Neutrophils Absolute Auto 3.8 x10*3/uL (2.0-8.3); Neutrophils Percent Auto 55.8 % (45-73); Platelet Count 249 X10*3/uL (160-400); Red Blood Count 3.36 X10*6/uL (4.20-5.50); Red Cell Distribution Width 15.6 % (11.0-16.0); White Blood Count 6.7 X10*3/uL (4.8-10.8)
[2023-01-21 14:01] LABS: INTERNATIONAL NORM RATIO 0.9 (0.9-1.1); Prothrombin Time 10.5 SEC (10.0-13.1)
[2023-01-21 14:41] LABS: Erythrocyte Sedimentation Rate 60 MM/HR (0-20)
[2023-01-21 20:24] LABS: Alanine Aminotransferase 7 U/L (0-31); Albumin Level 3.7 g/dL (3.5-5.0); Alkaline Phosphatase 83 U/L (39-117); Anion Gap 14 (12-20); Aspartate Amino Transferase 19 U/L (5-31); Bilirubin Total 0.4 mg/dL (0.0-1.0); Blood Urea Nitrogen 13 mg/dL (9-16); C Reactive Protein 4.62 mg/dL (< or = 0.50); Calcium 8.9 mg/dL (8.4-10.2); Carbon Dioxide 25 mmol/L (22-29); Chloride 104 mmol/L (96-108); Estimated Glomerular Filt Rate > 60; Glucose Random 84 mg/dL (60-115); Potassium 4.3 mmol/L (3.3-5.1); Rheumatoid Factor < 13.0 IU/mL (<15.0); Sodium 139 mmol/L (135-145); Total Protein 6.9 g/dL (6.5-8.0)
[2023-01-23 05:08] LABS: HBS Num1 0.24 mIU/mL (0-7.99); HBsAGNum1 0.35 S/CO (0.00-0.99); Hepatitis A Antibody IgM 0.17 Index (0-0.79); Hepatitis B Core Antibody Nonreactive (Nonreactive); Hepatitis B Surface Antigen Negative (Negative); ~HepC Num1 0.18 S/CO (0.00-0.79); ~Hepatitis A Antibody IgM Nonreactive (Nonreactive); ~Hepatitis B Surface Antibody NONREACTIVE (Nonreactive); ~Hepatitis C Antibody Nonreactive (Nonreactive)
[2023-01-23 14:38] LABS: Cyclic Citrullinated Peptide <16 UNITS
[2023-01-24 12:49] LABS: TS Negative Control Passed; TS Panel A 0; TS Panel B 1; TS Positive Control Passed; TSpotTB Negative (Negative)
== END 2023-01-21 11:11 | disposition home or self-care (01) ==
LOC: HO.HMGCLDS 11:10
PROVIDERS: Visit Provider Student in an Organized Health Care Education/Training Program
DX: M06.00 Rheumatoid arthritis without rheumatoid factor, unspecified site (principal); F10.10 Alcohol abuse, uncomplicated; Z11.59 Encounter for screening for other viral diseases; Z11.7 Encounter for testing for latent tuberculosis infection
CPT/HCPCS: 36415; 80053; 85025; 85610; 85652; 86140; 86200; 86431; 86481; 86704; 86706; 86709; 86803; 87340

== ENCOUNTER → 2023-01-23 13:32 | Outpatient (BNVA) | payer MEDICARE, SELFPAY | PROVIDERS: PCP Nurse Practitioner Family; Visit Provider Student in an Organized Health Care Education/Training Program | DX: M06.00 Rheumatoid arthritis without rheumatoid factor, unspecified site (principal); Z13.820 Encounter for screening for osteoporosis; Z79.899 Other long term (current) drug therapy | CPT/HCPCS: 99212 ==

== ENCOUNTER 2023-02-16 13:38 | Outpatient (REF) | payer MEDICARE, SELFPAY ==
[2023-02-16 15:17] LABS: MANUAL DIFF FLAG NO
[2023-02-16 15:21] LABS: Basophils Absolute Auto 0.1 X10*3/uL (0.0-0.2); Basophils Percent Auto 0.8 % (0-2); Eosinophils Absolute Auto 0.2 X10*3/uL (0.0-0.4); Eosinophils Percent Auto 3.2 % (0-4); Hematocrit 34.1 % (37.0-47.0); Hemoglobin 11.2 g/dl (12.0-16.0); Imm Gran Abs Auto 0.02 X10*3/uL (0.00-0.03); Imm Gran Pct Auto 0.3 % (0.0-0.4); Lymphocytes Absolute Auto 2.1 X10*3/uL (1.2-4.9); Mean Corpuscular HGB Conc 32.8 g/dl (31.0-35.0); Mean Corpuscular Volume 94.5 fL (80.0-98.0); Mean Platelet Volume 9.5 fL (9.4-12.3); Monocytes Absolute Auto 1.1 X10*3/uL (0.1-1.2); Monocytes Percent Auto 14.3 % (2-11); Neutrophils Percent Auto 53.4 % (45-73); Platelet Count 253 X10*3/uL (160-400); Red Blood Count 3.61 X10*6/uL (4.20-5.50); Red Cell Distribution Width 15.6 % (11.0-16.0); White Blood Count 7.5 X10*3/uL (4.8-10.8)
[2023-02-16 16:32] LABS: Alanine Aminotransferase 9 U/L (0-31); Albumin Level 3.9 g/dL (3.5-5.0); Alkaline Phosphatase 70 U/L (39-117); Anion Gap 11 (12-20); Aspartate Amino Transferase 24 U/L (5-31); Bilirubin Total 0.2 mg/dL (0.0-1.0); Blood Urea Nitrogen 15 mg/dL (9-16); Calcium 8.9 mg/dL (8.4-10.2); Carbon Dioxide 28 mmol/L (22-29); Chloride 104 mmol/L (96-108); Estimated Glomerular Filt Rate > 60; Glucose Random 113 mg/dL (60-115); Potassium 5.1 mmol/L (3.3-5.1); Sodium 138 mmol/L (135-145); Total Protein 6.7 g/dL (6.5-8.0)
[2023-02-16 16:47] LABS: Thyroid Stimulating Hormone 2.39 uIU/mL (0.32-4.0)
== END 2023-02-16 13:39 | disposition home or self-care (01) ==
LOC: HO.HMGCLDS 13:38
PROVIDERS: PCP Nurse Practitioner Family; Visit Provider Nurse Practitioner Family
DX: E03.9 Hypothyroidism, unspecified (principal); E11.610 Type 2 diabetes mellitus with diabetic neuropathic arthropathy
CPT/HCPCS: 36415; 80053; 84443; 85025

== ENCOUNTER 2023-02-19 14:51 | Outpatient (REF) | payer MEDICARE, SELFPAY ==
--- NOTE | ~2023-02-19 | XR_ITS ---
EXAMINATION: XR LUMBOSACRAL SPINE CLINICAL INFORMATION: Lumbar radiculopathy COMPARISON: Previous lumbar spine MRI October 2015 TECHNIQUE: Three views of the lumbosacral spine. FINDINGS: There is mild curvature of the lower lumbar spine to the left. Bone alignment is otherwise normal. No fracture or dislocation. There is multilevel degenerative spondylosis and degenerative disc disease. There is lower lumbar spine facet arthritis. There is atherosclerotic disease. There is an IUD seen in the pelvis. XR/XR lumbar spine 2-3V IMPRESSION: Multilevel degenerative changes.
--- NOTE | ~2023-02-19 | XR_ITS ---
EXAMINATION: XR CERVICAL SPINE CLINICAL INFORMATION: Cervical radiculopathy COMPARISON: Previous cervical spine x-ray July 2019 TECHNIQUE: 3 views of the cervical spine were obtained. FINDINGS: There is new postsurgical change from ACDF at C5-C6. Orthopedic hardware appears intact. There is space between the superior margin of the plate and the anterior superior endplate of the C5 vertebral body measuring 2 mm. There may be a lucency adjacent to the screws in C5 anteriorly as well. There is mild anterior subluxation of C4 with respect to C3 and C5 measuring maximum 3 mm with respect to C5. Bone alignment is otherwise normal. There is degenerative spondylosis and degenerative disc disease at C3-C4 and C6-C7. There is spondylosis at C4-C5. Prevertebral soft tissues are normal. XR/XR cervical spine 3V IMPRESSION: Postsurgical changes from ACDF at C5-C6. Question lucency at the bone hardware interface with C5. Mild anterior subluxation of C3-C4 with respect to C3 and C5. Degenerative changes.
== END 2023-02-19 14:52 | disposition home or self-care (01) ==
LOC: HO.HMGCX 14:51
PROVIDERS: Visit Provider Nurse Practitioner Family
DX: M54.12 Radiculopathy, cervical region (principal); M54.16 Radiculopathy, lumbar region
CPT/HCPCS: 72040; 72100

== ENCOUNTER 2023-08-14 13:28 | Outpatient (REF) | payer MEDICARE, SELFPAY | END 2023-08-14 13:29 | disposition home or self-care (01) | LOC: HO.MAMMO 13:28 | PROVIDERS: PCP Nurse Practitioner Family; Visit Provider Nurse Practitioner Family | DX: Z12.31 Encounter for screening mammogram for malignant neoplasm of breast (principal) | CPT/HCPCS: 77063; 77067 ==

== ENCOUNTER → 2023-08-14 13:30 | Outpatient (BNV) | payer MEDICARE, SELFPAY | PROVIDERS: PCP Nurse Practitioner Family; Visit Provider Radiology Diagnostic Radiology | DX: Z12.31 Encounter for screening mammogram for malignant neoplasm of breast (principal) | CPT/HCPCS: 77063; 77067 ==

== ENCOUNTER 2023-08-15 15:07 | Outpatient (REF) | payer MEDICARE, SELFPAY ==
[2023-08-15 15:55] LABS: MANUAL DIFF FLAG NO
[2023-08-15 16:08] LABS: Basophils Absolute Auto 0.1 X10*3/uL (0.0-0.2); Basophils Percent Auto 0.8 % (0-2); Eosinophils Absolute Auto 0.3 X10*3/uL (0.0-0.4); Eosinophils Percent Auto 3.5 % (0-4); Hematocrit 38.3 % (37.0-47.0); Hemoglobin 12.9 g/dl (12.0-16.0); Imm Gran Abs Auto 0.02 X10*3/uL (0.00-0.03); Imm Gran Pct Auto 0.3 % (0.0-0.4); Lymphocytes Absolute Auto 2.5 X10*3/uL (1.2-4.9); Lymphocytes Percent Auto 32.8 % (20-40); Mean Corpuscular HGB Conc 33.7 g/dl (31.0-35.0); Mean Corpuscular Hemoglobin 31.4 pg (27.0-33.0); Mean Corpuscular Volume 93.2 fL (80.0-98.0); Mean Platelet Volume 9.6 fL (9.4-12.3); Monocytes Percent Auto 12.4 % (2-11); Neutrophils Absolute Auto 3.9 x10*3/uL (2.0-8.3); Neutrophils Percent Auto 50.2 % (45-73); Platelet Count 262 X10*3/uL (160-400); Red Blood Count 4.11 X10*6/uL (4.20-5.50); Red Cell Distribution Width 13.1 % (11.0-16.0); White Blood Count 7.7 X10*3/uL (4.8-10.8)
[2023-08-15 16:29] LABS: Alanine Aminotransferase 9 U/L (0-31); Albumin Level 4.1 g/dL (3.5-5.0); Alkaline Phosphatase 85 U/L (39-117); Anion Gap 16 (12-20); Aspartate Amino Transferase 22 U/L (5-31); Bilirubin Total 0.2 mg/dL (0.0-1.0); Blood Urea Nitrogen 13 mg/dL (9-16); C Reactive Protein 1.01 mg/dL (< or = 0.50); Calcium 9.4 mg/dL (8.4-10.2); Carbon Dioxide 22 mmol/L (22-29); Chloride 106 mmol/L (96-108); Estimated Glomerular Filt Rate > 60; Glucose Random 78 mg/dL (60-115); Potassium 4.5 mmol/L (3.3-5.1); Sodium 139 mmol/L (135-145); Total Protein 7.3 g/dL (6.5-8.0)
[2023-08-15 16:53] LABS: Erythrocyte Sedimentation Rate 19 MM/HR (0-20)
== END 2023-08-15 15:08 | disposition home or self-care (01) ==
LOC: HO.HMGCLDS 15:07
PROVIDERS: PCP Nurse Practitioner Family; Visit Provider Student in an Organized Health Care Education/Training Program
DX: M06.00 Rheumatoid arthritis without rheumatoid factor, unspecified site (principal)
CPT/HCPCS: 36415; 80053; 85025; 85652; 86140

== ENCOUNTER 2023-08-20 11:38 | Outpatient (AMB) | payer MEDICARE, SELFPAY ==
[2023-08-20 11:40] VITALS: BP 116/68; PULSE 82; O2SAT 95; BMI 30.5
--- NOTE | 2023-08-20 11:40 | A.OFFVIS_ITS ---
Intake Vital Signs 08/20/23 11:40 Height 5 ft 3 in Weight 171 lb 15.369 oz BMI 30.5 BP 116/68 Blood Pressure Location Rt brachial Position Sitting Pulse 82 Pulse Source Pulse Oximeter Pulse Oximetry (%) 95 Intake Visit Reasons: RA Intake Note: Pt presents today for follow up and test results. 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 Accompanied by: Self / Same As Patient Allergies lisinopril Allergy (Intermediate, Verified 08/20/23 11:43) Swelling clavulanic acid [From Augmentin] Allergy (Mild, Verified 08/20/23 11:43) RASH aripiprazole [From ABILIFY] Adverse Reaction (Intermediate, Verified 08/20/23 11:43) EDEMA duloxetine [From CYMBALTA] Adverse Reaction (Intermediate, Verified 08/20/23 11:43) WT GAIN/EDEMA ibuprofen Adverse Reaction (Unknown, Verified 08/20/23 11:43) kidney function Medication List - Last Reconciled 08/20/23 by Matthew Leyva MD albuterol sulfate 90 mcg/actuation 1 puff inhalation Q4H aripiprazole 2 mg PO DAILY baclofen 1 tab PO TID blood sugar diagnostic (FreeStyle Lite Strips) bupropion HCl 1 tab PO DAILY cefuroxime axetil 500 mg PO Q12H clotrimazole-betamethasone 1-0.05 % 1 appl topical BID docusate sodium (DOK) 1 cap PO BID furosemide 20 mg PO DAILY hydroxychloroquine 200 mg PO BID ibuprofen 600 mg PO Q8H PRN levothyroxine (Euthyrox) 1 tab PO QAM magnesium oxide 400 mg PO BIDPC metformin 1 tab PO BID omeprazole 1 cap PO DAILY oxybutynin chloride ER 1 tab PO DAILY oxycodone 10 mg PO Q4H PRN oxycodone ER (OxyContin) 15 mg PO BID pregabalin 75 mg PO TID simvastatin 1 tab PO BEDTIME venlafaxine ER 1 cap PO DAILY HPI HPI Comments History of Present Illness Details 62yoF presents for follow-up of seronega tive RA. On Plaquenil 400mg daily since Jun 2019. Last visit I added sulfasalazine to her medication regimen. A few weeks later patient called complaining of bilateral hand numbness. She had a neck MRI which showed significant degenerative arthritis, she had a cervical spine surgery, afterwards she had lower back pain and MRI showed significant degenerative changes and she had lumbar spine surgery. She states that she wears a bone growth stimulator , this was prescribed by her spine surgeon. States that she is to wear it for 6 months after her surgery in February of 2023. Patient continues to have significant swelling of her right lower extremity since after her right knee replacement last year. She was evaluated by vascular surgeon and states that a vascular venous procedure is planned. She states that the numbness of her fingers is better since after her neck surgery but continues to have some numbness. States that she has significant left index finger pain and swelling [facility] Medical History (Updated 08/20/23 @ 12:38 by Matthew Leyva MD) Mass of right thigh Long-term use of hydroxychloroquine Alcohol abuse Chronic bronchitis Smoker Seronegative rheumatoid arthritis Pilonidal cyst Neuropathy Carpal tunnel syndrome Rheumatoid arthritis Osteomyelitis Osteoarthritis Diabetes Pleurisy Pulmonary embolism Surgical History History of total right knee replacement (TKR) H/O hernia repair History of surgery on arm History of left knee replacement (~2016) Previous back surgery (~2015) Family History Mother CHF (congestive heart failure) Stroke Uterine cancer Father CHF (congestive heart failure) Sister Diabetes Brother Diabetes Pulmonary embolism Social History Household Members: None Housing: Unknown / Unable to assess Are you a primary primary care nurse practitioner to a significant other at home: No Unable to assess alcohol history related to: Unable to respond Alcohol intake: current Alcohol intake frequency: a few times a week Alcohol type: hard liquor Patient Tobacco Use Status: Refuse Tobacco use screen Tobacco use type: Cigarette Cigarette Packs Per Day: 1 Cigarettes Per Day: 20 Years Smoked: 40 service: No Current occupational status: unemployed Review of Systems Const Reports weakness Eyes Reports no additional complaints ENT Reports no additional complaints Resp Reports no additional complaints and Denies cough GI Reports no additional complaints Musc Reports deformity, Reports arthralgias, Reports joint swelling, Reports numbness, Reports radiating pain into limb, Reports stiffness and Reports tingling Neuro Reports numbness, Reports tingling and Reports weakness Physical Exam Vital Signs: Last Vital Signs Pulse 82 08/20/23 11:40 BP 116/68 08/20/23 11:40 Pulse Ox 95 08/20/23 11:40 BMI result Body Mass Index 30.5 Const General: cooperative, comfortable and no acute distress Orientation/consciousness: patient oriented x3 Limitations: ambulation with cane HEENT Head: Yes normocephalic Resp Effort & Inspection: normal respiratory effort and able to speak in complete sentences Cardio Rate: regular rate Rhythm: regular rhythm GI Inspection: No distended Palpation (GI): Soft to palpation and nontender Skin Other: Multiple areas of skin excoriations were patient was scratching, Small open wound on the lateral aspect of her right lower extremity Rashes: rashes noted Neuro General: patient oriented x3 Extrem Other: osteoarthritic changes of both hands Left 2nd MCP swelling and tenderness, left 2nd PIP swelling and tenderness Few tender MCPs and PIPs bilaterally Significant swelling of the entire right leg with edema Claw deformities of her left toes nontender to palpation. Negative MTP squeeze test Feet are numb Results Reviewed Results Reviewed: IMAGING: ?MRI right foot 2019: Advanced arthritic changes across the midfoot including partial fusion of the 2nd TMT joint, which may be the sequela of a previous inflammatory arthropathy. Effusion with synovitis of the tibiotalar and posterior subtalar facet joints may be degenerative although could represent an inflammatory arthritis. Clinically correlate for history of rheumatoid arthritis ?Ultrasound of the hands: no evidence of synovitis in hands or wrists. Assessment & Plan Assessment & Plan (1) Seronegative rheumatoid arthritis: Comment: seroneg dx 2019 [facility] 2019 Code(s): M06.00 - Rheumatoid arthritis without rheumatoid factor, unspecified site Plan: This is a 62-year-old female with past medical history of seronegative rheumatoid arthritis (deforming especially left ankle and foot) was on Plaquenil 400 mg daily starting 2018 with some relief of her symptoms. She could not be on methotrexate due to alcohol abuse. She quit drinking in December of 2021 as well as smoking. When she had a significant dental infection. On exam today patient has few swollen tender joints. Will need to escalate therapy. Discussed risks and benefits of sulfasalazine. Patient agreed to proceed. Last time patient had numbness after starting sulfasalazine. Sulfasalazine was stopped but it was attributed to cervical radiculopathy, her numbness is much better since after her cervical spine surgery. Labs before next visit in 2 months (2) Long-term use of hydroxychloroquine: Code(s): Z79.899 - Other group home (current) drug therapy Plan: Discussed potential side effects of hydroxychloroquine including retinopathy. Patient follows up regularly with Ophthalmology. 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 Panel 2 Months M06.00 - Rheumatoid arthritis without rheumatoid factor, unspecified site C Reactive Protein 2 Months M06.00 - Rheumatoid arthritis without rheumatoid factor, unspecified site Erythrocyte Sedimentation Rate 2 Months M06.00 - Rheumatoid arthritis without rheumatoid factor, unspecified site Medications: Changed From sulfasalazine orally; give with food (meal/snack) Take 1 tab twice daily for 1 week then 2 tabs in the morning 1 tab at night for 1 week then 2 tabs twice daily 125 tabs 0RF To sulfasalazine orally; give with food (meal/snack) Take 1 tab twice daily for 1 week then 2 tabs in the morning 1 tab at night for 1 week then 2 tabs twice daily 125 tabs 0RF NS Coding Level of Care Code Est Pt Level 4 (07829) Diagnoses Seronegative rheumatoid arthritis M06.00 Long-term use of hydroxychloroquine Z79.899 Screening for osteoporosis Z13.820 On sulfasalazine therapy Z79.899
== END 2023-08-20 12:17 | disposition home or self-care (01) ==
PROVIDERS: PCP Nurse Practitioner Family; Visit Provider Student in an Organized Health Care Education/Training Program
DX: M06.00 Rheumatoid arthritis without rheumatoid factor, unspecified site (principal); Z79.899 Other long term (current) drug therapy; Z13.820 Encounter for screening for osteoporosis
CPT/HCPCS: 99214

== ENCOUNTER → 2023-08-20 11:38 | Outpatient (BNVA) | payer MEDICARE, SELFPAY | PROVIDERS: PCP Nurse Practitioner Family; Visit Provider Student in an Organized Health Care Education/Training Program | DX: M06.00 Rheumatoid arthritis without rheumatoid factor, unspecified site (principal); Z79.899 Other long term (current) drug therapy; Z13.820 Encounter for screening for osteoporosis | CPT/HCPCS: 99212 ==

== ENCOUNTER 2023-09-18 11:00 | Outpatient (RCR) | payer MEDICARE, SELFPAY | END 2023-11-12 11:30 | disposition home or self-care (01) | LOC: HO.PTCHIC 11:00 | PROVIDERS: PCP Nurse Practitioner Family; Visit Provider Neurological Surgery | DX: M54.2 Cervicalgia (principal) | CPT/HCPCS: 97110; 97140; 97163 ==

== ENCOUNTER 2023-10-16 13:20 | Outpatient (AMB) | payer MEDICARE, SELFPAY ==
[2023-10-16 13:46] VITALS: BP 148/78; PULSE 72; RESP 16; O2SAT 96; BMI 30.2
--- NOTE | 2023-10-16 13:46 | MHC.OFFVIS ---
Intake Vital Signs 10/16/23 13:46 Height 5 ft 3 in Weight 170 lb 4 oz BMI 30.2 BP 148/78 H Blood Pressure Location Lt brachial Position Sitting Respiration 16 Pulse 72 Pulse Source Pulse Oximeter Pulse Oximetry (%) 96 Oxygen Delivery Method Room Air Intake Visit Reasons: eval for C3-C4 facet inj/ Confirmed Intake Note: patient comes in for initial visit was referred by . Allergies lisinopril Allergy (Intermediate, Verified 10/16/23 13:47) Swelling clavulanic acid [From Augmentin] Allergy (Mild, Verified 10/16/23 13:47) RASH aripiprazole [From ABILIFY] Adverse Reaction (Intermediate, Verified 10/16/23 13:47) EDEMA duloxetine [From CYMBALTA] Adverse Reaction (Intermediate, Verified 10/16/23 13:47) WT GAIN/EDEMA ibuprofen Adverse Reaction (Unknown, Verified 10/16/23 13:47) kidney function HPI HPI Comments History of Present Illness Details Evelyne is very pleasant 63 years old female who presents in my office with complains on pain in the neck and left upper shoulder with radiation to the back of the head she was subject of several surgeries of the cervical spine done by Dr. Gibson. She is referred by Dr. Gibson here for the performance of the left-sided C3-C4 intra-articular steroid injection. Dr. Gibson previously performed C4-C5 C5-C6 anterior ACDF and now she reports that the patient basically is presenting with absence of intervertebral disc at C3-C4 and retrolisthesis of C3-C4 1.5 mm she thinks that disc space is completely collapsed and may fuse itself over time if we can control her symptoms. According to Dr. CAMPBELL a cervical spine MRI showed moderate left C3-C4 foraminal narrowing from facet arthropathy. No significant central stenosis. She reports that she cannot sleep normally because of her pain but she can not do activities of that daily living she can take care of herself she can not function normally she is on permanent disability due to multiple pain problems. She reports that movements aggravate her pain. She reports that heat and cold application as well as oral medications what makes her pain better. Her pain is worst in the middle of the night going into the morning and this severe in the early afternoon. In terms of tissue damage she reports her pain as pulsing, pounding and throbbing headaches stabbing and lancinating side and neck pain tingling and stinging pain in the neck as well as dull sore in hurting pain in the back of the skull. She was subject of multiple diagnostic studies done in [facility]. It was x-rays CT scans MRI the report of the x-ray dictated as below. She was subject of physical therapy prior to and after the surgeries with Dr. Gibson. She also was subject of occupational therapy. She received some injections in the past nature which she does not remember. Her past medical history significant for hypertension fatigue history of alcoholism anxiety and palpitation of the heart diabetes and arthritis. Her diabetes is currently diet controlled. Her past surgical history significant for bilateral knee replacements 2 cervical fusions in thoracic surgery 1 lumbar surgery and 1 forearms surgery. Social history: She admits smoking cigarettes 1 and half pack per day. She drinks 2-3 drinks of alcohol per week. She drinks some caffeinated beverages 2-3 cups of coffee per day. She takes cannabis from the store. [facility] Medical History (Updated 10/16/23 @ 14:15 by Juan Leslie MD) Mass of right thigh Long-term use of hydroxychloroquine Alcohol abuse Chronic bronchitis Smoker Seronegative rheumatoid arthritis Pilonidal cyst Neuropathy Carpal tunnel syndrome Rheumatoid arthritis Osteomyelitis Osteoarthritis Diabetes Pleurisy Pulmonary embolism Surgical History History of total right knee replacement (TKR) H/O hernia repair History of surgery on arm History of left knee replacement (~2017) Previous back surgery (~2016) Family History Mother CHF (congestive heart failure) Stroke Uterine cancer Father CHF (congestive heart failure) Sister Diabetes Brother Diabetes Pulmonary embolism Social History Household Members: None Housing: Unknown / Unable to assess Are you a primary career development associate to a significant other at home: No Unable to assess alcohol history related to: Unable to respond Alcohol intake: current Alcohol intake frequency: a few times a week Alcohol type: hard liquor Patient Tobacco Use Status: Refuse Tobacco use screen Tobacco use type: Cigarette Cigarette Packs Per Day: 1 Cigarettes Per Day: 20 Years Smoked: 40 service: No Current occupational status: unemployed Review of Systems Const Denies chills, Reports fatigue and Denies fever(s) ENT Reports neck pain Card Denies chest pain, Denies chest pain at rest, Denies chest pain with activity, Denies diaphoresis, Denies syncope and Reports rapid heart rate (Rare palpitation) Resp Denies chest congestion, Denies cough, Denies hemoptysis, Denies pain on inspiration and Denies pain with cough Musc Reports abnormal gait, Reports back pain, Reports arthralgias, Reports neck pain, Reports stiffness and Reports tingling Neuro Reports abnormal gait, Denies syncope and Reports tingling Psych Reports no additional complaints Endo Reports fatigue Physical Exam Vital Signs: Last Vital Signs Pulse 72 10/16/23 13:46 Resp 16 10/16/23 13:46 BP 148/78 H 10/16/23 13:46 Pulse Ox 96 10/16/23 13:46 Oxygen Delivery Method Room Air 10/16/23 13:46 BMI result Body Mass Index 30.2 Const General: cooperative, comfortable and no acute distress Orientation/consciousness: patient oriented x3 Limitations: ambulation with cane HEENT Head: Yes normocephalic Neck Other: Limited range of motion of the cervical spine tenderness on palpation on paraspinal spinal region mostly on the left. Due to report of retrolisthesis maneuvers were not performed Neck: Yes normal visual inspection and No full ROM Resp Effort & Inspection: normal respiratory effort and able to speak in complete sentences Cardio Rate: regular rate Rhythm: regular rhythm GI Inspection: No distended Palpation (GI): Soft to palpation and nontender Neuro General: patient oriented x3 Extrem Other: osteoarthritic changes of both hands Left 2nd MCP swelling and tenderness, left 2nd PIP swelling and tenderness Few tender MCPs and PIPs bilaterally Significant swelling of the entire right leg with edema Claw deformities of her left toes nontender to palpation. Negative MTP squeeze test Feet are numb Results Reviewed Results Reviewed: X-ray exam of the neck four views 08/23/2023. Cervical spine is visualized from C1-C7. Vertebral body heights is maintained. The patient is status post C4-C6 anterior spinal fusion. No perihardware lucencies or periprosthetic fractures. There is grade 1 retrolisthesis of C3 on C4 of approximately 2 mm which is not present on the flexion view but is stable on the extension view no prevertebral soft tissue swelling. The posterior elements are grossly intact. Mild uncovertebral arthropathy. Assessment & Plan Assessment & Plan (1) Cervicalgia: Code(s): M54.2 - Cervicalgia Plan: (2) Postlaminectomy syndrome, cervical: Code(s): M96.1 - Postlaminectomy syndrome, not elsewhere classified Plan: (3) Arthropathy of cervical facet joint: Code(s): M47.812 - Spondylosis without myelopathy or radiculopathy, cervical region (4) Spondylosis, cervical: Code(s): M47.812 - Spondylosis without myelopathy or radiculopathy, cervical region Plan: I will schedule this patient for left-sided C2-C3 C4 therapeutic medial branch block under fluoroscopy. I will evaluate this patient after the injection. I explained to her that some of the options which otherwise would be normally available for patient might not be available as she is a heavy smoker with 1 and 1/2 pack per day smoking. Hopefully the injection will be working for this patient. (5) Chronic pain syndrome: Code(s): G89.4 - Chronic pain syndrome Plan: I will see this patient 1 month after the procedure. Plan Coding Level of Care Code New Pt Level 3 (88522) Diagnoses Cervicalgia M54.2 Postlaminectomy syndrome, cervical M96.1 Arthropathy of cervical facet joint M47.812 Spondylosis, cervical M47.812 Chronic pain syndrome G89.4
== END 2023-10-16 14:02 | disposition home or self-care (01) ==
PROVIDERS: PCP Nurse Practitioner Family; Referring Provider Neurological Surgery; Visit Provider Anesthesiology
DX: G89.4 Chronic pain syndrome (principal); M54.2 Cervicalgia; M96.1 Postlaminectomy syndrome, not elsewhere classified; M47.812 Spondylosis without myelopathy or radiculopathy, cervical region
CPT/HCPCS: 99203

== ENCOUNTER → 2023-10-16 13:20 | Outpatient (BNVA) | payer MEDICARE, SELFPAY | PROVIDERS: PCP Nurse Practitioner Family; Referring Provider Neurological Surgery; Visit Provider Anesthesiology | DX: M54.2 Cervicalgia (principal); M96.1 Postlaminectomy syndrome, not elsewhere classified; M47.812 Spondylosis without myelopathy or radiculopathy, cervical region; G89.4 Chronic pain syndrome | CPT/HCPCS: 99202 ==

== ENCOUNTER 2023-11-12 06:15 | Outpatient (REF) | payer MEDICARE, SELFPAY ==
--- NOTE | ~2023-11-12 | FL_ITS ---
INDICATION: Intraoperative fluoroscopy. FLUOROSCOPY: Fluoroscopy Time: 30.6 seconds Dose/air kerma: 9.73 mGy FINDINGS: Multiple intraoperative fluoroscopic images are submitted during reported cervical injections. Correlation with operative report. Evaluation is limited secondary to fluoroscopic technique. IMPRESSION: Intra-operative fluoroscopic imaging provided by radiology during reported cervical injections. Please refer to operative note for further information.
== END 2023-11-12 06:16 | disposition home or self-care (01) ==
LOC: CF 06:15
PROVIDERS: Visit Provider Anesthesiology
DX: M47.812 Spondylosis without myelopathy or radiculopathy, cervical region (principal); M96.1 Postlaminectomy syndrome, not elsewhere classified
CPT/HCPCS: 64490; 64491; J2795; J3301; Q9967

== ENCOUNTER 2023-11-12 13:08 | Outpatient (AMB) | payer MEDICARE, SELFPAY ==
--- NOTE | 2023-11-12 13:32 | MHC.OFFVIS ---
Intake Vital Signs 11/12/23 13:33 11/12/23 13:33 Height 5 ft 3 in 5 ft 3 in Weight 170 lb 170 lb BMI 30.1 30.1 BP 106/68 118/84 Blood Pressure Location Lt brachial Lt brachial Position Sitting Sitting Respiration 14 14 Pulse 79 70 Pulse Source Pulse Oximeter Pulse Oximeter Pulse Oximetry (%) 95 96 Oxygen Delivery Method Room Air Room Air Comment pre-op post-op Intake Visit Reasons: Left C2-C3-C4 theraputic MBB Allergies lisinopril Allergy (Intermediate, Verified 11/12/23 13:33) Swelling clavulanic acid [From Augmentin] Allergy (Mild, Verified 11/12/23 13:33) RASH aripiprazole [From ABILIFY] Adverse Reaction (Intermediate, Verified 11/12/23 13:33) EDEMA duloxetine [From CYMBALTA] Adverse Reaction (Intermediate, Verified 11/12/23 13:33) WT GAIN/EDEMA ibuprofen Adverse Reaction (Unknown, Verified 11/12/23 13:33) kidney function [facility] Medical History (Updated 10/16/23 @ 14:15 by Juan Leslie MD) Mass of right thigh Long-term use of hydroxychloroquine Alcohol abuse Chronic bronchitis Smoker Seronegative rheumatoid arthritis Pilonidal cyst Neuropathy Carpal tunnel syndrome Rheumatoid arthritis Osteomyelitis Osteoarthritis Diabetes Pleurisy Pulmonary embolism Surgical History History of total right knee replacement (TKR) H/O hernia repair History of surgery on arm History of left knee replacement (~2017) Previous back surgery (~2016) Family History Mother CHF (congestive heart failure) Stroke Uterine cancer Father CHF (congestive heart failure) Sister Diabetes Brother Diabetes Pulmonary embolism Social History Household Members: None Housing: Unknown / Unable to assess Are you a primary inpatient care manager rn to a significant other at home: No Unable to assess alcohol history related to: Unable to respond Alcohol intake: current Alcohol intake frequency: a few times a week Alcohol type: hard liquor Patient Tobacco Use Status: Refuse Tobacco use screen Tobacco use type: Cigarette Cigarette Packs Per Day: 1 Cigarettes Per Day: 20 Years Smoked: 40 service: No Current occupational status: unemployed Physical Exam Vital Signs: Last Vital Signs Pulse 70 11/12/23 13:33 Resp 14 11/12/23 13:33 BP 118/84 11/12/23 13:33 Pulse Ox 96 11/12/23 13:33 Oxygen Delivery Method Room Air 11/12/23 13:33 BMI result Body Mass Index 30.1 Assessment & Plan Assessment & Plan (1) Spondylosis, cervical: Code(s): M47.812 - Spondylosis without myelopathy or radiculopathy, cervical region Plan: (2) Arthropathy of cervical facet joint: Code(s): M47.812 - Spondylosis without myelopathy or radiculopathy, cervical region Plan: (3) Postlaminectomy syndrome, cervical: Code(s): M96.1 - Postlaminectomy syndrome, not elsewhere classified Plan: Plan Left C2- C3- C4 therapeutic medial branch block. ?Informed consent was explained to the patient. All questions were explained and answered.? The patient was taken inside the operating room where she was positioned prone on the operating table. Time-out was performed delineating correct site, side, the nature of the procedure, patient's allergy, preoperative antibiotic if needed.? All operating room staff was participating in OR time-out procedure. The back of the neck and upper back were prepped with ChloraPrep and draped with sterile towels.? Sterilely draped C-arm was brought over the operating field and sq picture of? C2, C3, C4 vertebrae were delineated on the screen.? Points of interest were delineated as lateral masses on the left of the vertebrae as above. The waste of each lateral mass was chosen as the target of the tip of the needles on AP view and lateral view was used as a safety view for the tips of the needles position.?? The projections of the point of interest to the skin were injected with the small amount of local anesthetic lidocaine 2% 1-1.5 cc.? After that 22 gauge 3and 1/2 inch? spinal needles were driven to the point of interest in tunnel vision fashion. After needles gently contacted the bone at the point of interests the needle was injected with small amount of the contrast. The injections did not demonstrate intravascular or intrathecal spread.. After that ropivacaine 0.5%-1cc. mixed with kenalog was injected into each location of the needles. ( total dose of Kenalog was 40 mgs).? Upon completion of the injections the needles were removed and sterile dressings were applied, the patient was a taken? outside of the operating room to recovery room where she recovered uneventfully. Orders: Orders FL guidance in treatment room Today M47.812 - Spondylosis without myelopathy or radiculopathy, cervical region Coding Level of Care Code Procedure Only Diagnoses Spondylosis, cervical M47.812 Arthropathy of cervical facet joint M47.812 Postlaminectomy syndrome, cervical M96.1
[2023-11-12 13:33] VITALS: BP 106/68; BP 118/84; PULSE 70; PULSE 79; RESP 14; O2SAT 95; O2SAT 96; BMI 30.1
== END 2023-11-12 14:38 | disposition home or self-care (01) ==
LOC: HO.PMCPRC 13:08
PROVIDERS: PCP Nurse Practitioner Family; Visit Provider Anesthesiology
DX: M47.812 Spondylosis without myelopathy or radiculopathy, cervical region (principal); M96.1 Postlaminectomy syndrome, not elsewhere classified
CPT/HCPCS: 64490; 64491

== ENCOUNTER 2023-11-20 14:17 | Outpatient (AMB) | payer MEDICARE, SELFPAY ==
--- NOTE | 2023-11-20 14:18 | A.OFFVIS_ITS ---
Intake Vital Signs 11/20/23 14:26 Height 5 ft 3 in Weight 179 lb 0.246 oz BMI 31.7 BP 128/90 H Blood Pressure Location Lt brachial Position Sitting Pulse 68 Pulse Source Pulse Oximeter Temp 97.2 F Temp Source Skin Pulse Oximetry (%) 96 Oxygen Delivery Method Room Air Intake Visit Reasons: RA Intake Note: Patient last seen 08/20/23 presents today for follow up and test results. Risk Developer Required: No Allergies lisinopril Allergy (Intermediate, Verified 11/20/23 14:19) Swelling clavulanic acid [From Augmentin] Allergy (Mild, Verified 11/20/23 14:19) RASH aripiprazole [From ABILIFY] Adverse Reaction (Intermediate, Verified 11/20/23 14:19) EDEMA duloxetine [From CYMBALTA] Adverse Reaction (Intermediate, Verified 11/20/23 14:19) WT GAIN/EDEMA ibuprofen Adverse Reaction (Unknown, Verified 11/20/23 14:19) kidney function Medication List - Last Reconciled 11/20/23 by Matthew Leyva MD albuterol sulfate 90 mcg/actuation 1 puff inhalation Q4H aripiprazole 2 mg PO DAILY baclofen 1 tab PO TID blood sugar diagnostic (FreeStyle Lite Strips) bupropion HCl 1 tab PO DAILY cefuroxime axetil 500 mg PO Q12H clotrimazole-betamethasone 1-0.05 % 1 appl topical BID docusate sodium (DOK) 1 cap PO BID furosemide 20 mg PO DAILY hydroxychloroquine 200 mg PO BID ibuprofen 600 mg PO Q8H PRN levothyroxine (Euthyrox) 1 tab PO QAM magnesium oxide 400 mg PO BIDPC metformin 1 tab PO BID omeprazole 1 cap PO DAILY oxybutynin chloride ER 1 tab PO DAILY oxycodone 10 mg PO Q4H PRN oxycodone ER (OxyContin) 15 mg PO BID pregabalin 75 mg PO TID simvastatin 1 tab PO BEDTIME sulfasalazine 1 g (2 x 500 mg) PO BID NS venlafaxine ER 1 cap PO DAILY HPI HPI Comments History of Present Illness Details 62yoF presents for follow-up of seronega tive RA. On Plaquenil 400mg daily since Jun 2019. Sulfasalazine was added last visit 3 months ago. She states that there are multiple things that are happening. She believes that her rheumatoid arthritis is well controlled. She has not had any swollen joints recently. She states that she has bilateral feet numbness, worse on the right. She has been recently evaluated by a neurologist. She also states that the swelling of her right lower extremity is improving and will be going for a vascular procedure in the near future.. She takes ibuprofen 600 mg most days for polyarthralgias [facility]LY [facility] Medical History Mass of right thigh Long-term use of hydroxychloroquine Alcohol abuse Chronic bronchitis Smoker Seronegative rheumatoid arthritis Pilonidal cyst Neuropathy Carpal tunnel syndrome Rheumatoid arthritis Osteomyelitis Osteoarthritis Diabetes Pleurisy Pulmonary embolism Surgical History History of total right knee replacement (TKR) H/O hernia repair History of surgery on arm History of left knee replacement (~2017) Previous back surgery (~2016) Family History Mother CHF (congestive heart failure) Stroke Uterine cancer Father CHF (congestive heart failure) Sister Diabetes Brother Diabetes Pulmonary embolism Social History Household Members: None Housing: Unknown / Unable to assess Are you a primary care tech to a significant other at home: No Unable to assess alcohol history related to: Unable to respond Alcohol intake: current Alcohol intake frequency: a few times a week Alcohol type: hard liquor Patient Tobacco Use Status: Refuse Tobacco use screen Tobacco use type: Cigarette Cigarette Packs Per Day: 1 Cigarettes Per Day: 20 Years Smoked: 40 service: No Current occupational status: unemployed Review of Systems Const Reports weakness Eyes Reports no additional complaints ENT Reports no additional complaints Resp Reports no additional complaints GI Reports no additional complaints Musc Reports deformity, Reports numbness, Reports stiffness and Reports tingling Neuro Reports numbness, Reports tingling and Reports weakness Physical Exam Vital Signs: Last Vital Signs Temp 97.2 F 11/20/23 14:26 Pulse 68 11/20/23 14:26 BP 128/90 H 11/20/23 14:26 Pulse Ox 96 11/20/23 14:26 Oxygen Delivery Method Room Air 11/20/23 14:26 BMI result Body Mass Index 31.7 Const General: cooperative, comfortable and no acute distress Orientation/consciousness: patient oriented x3 Limitations: ambulation with cane HEENT Head: Yes normocephalic Resp Effort & Inspection: normal respiratory effort and able to speak in complete sentences Cardio Rate: regular rate Rhythm: regular rhythm GI Inspection: No distended Palpation (GI): Soft to palpation and nontender Skin Other: On extensor aspect of right forearm: Few parallel longitudinal skin excoriations and skin breakdown were patient fell at home recently Neuro General: patient oriented x3 Extrem Other: osteoarthritic changes of both hands No active synovitis today Significant swelling of the entire right leg with edema, this has improved compared to last visit Claw deformities of her left toes nontender to palpation. Negative MTP squeeze test Feet are numb Assessment & Plan Assessment & Plan (1) Seronegative rheumatoid arthritis: Comment: seroneg dx 2019 HCQ 2019 SSZ added 07/2023 effective Code(s): M06.00 - Rheumatoid arthritis without rheumatoid factor, unspecified site Plan: This is a 62-year-old female with past medical history of seronegative rheumato id arthritis (deforming especially left ankle and foot) was on Plaquenil 400 mg daily starting 2018 with some relief of her symptoms. She could not be on methotrexate due to alcohol abuse. She quit drinking in December of 2021 as well as smoking when she had a significant dental infection But she occasionally relapses and drinks again. Patient was started on sulfasalazine 1000 mg Twice daily last visit with significant improvement. I do not see any active synovitis today. Advised patient to get safety labs done today and before next visit in 3 months. I will refill sulfasalazine and ibuprofen once I see those labs (2) Long-term use of hydroxychloroquine: Code(s): Z79.899 - Other buttermaker continuous churn (current) drug therapy Plan: Discussed potential side effects of hydroxychloroquine including retinopathy. Patient follows up regularly with Ophthalmology. She states that she has a foll ow-up appointment next (3) Screening for osteoporosis: Code(s): Z13.820 - Encounter for screening for osteoporosis Plan: DEXA scan within normal 07/2022, plan to repeat this fall (4) On sulfasalazine therapy: Code(s): Z79.899 - Other mcc (current) drug therapy Plan: Monitor safety labs Plan I spent 25 minutes reviewing patient's chart, evaluating patient, ordering diagnostic workup, counseling patient and documenting in the chart Orders: Orders Comprehensive Met. Panel 3 Months Z79.899 - Other buttermaker continuous churn (current) drug therapy Complete Blood Count Auto Diff 3 Months Z79.899 - Other buttermaker continuous churn (current) drug therapy C Reactive Protein 3 Months Z79.899 - Other mcc (current) drug therapy Erythrocyte Sedimentation Rate 3 Months Z79.899 - Other buttermaker continuous churn (current) drug therapy Coding Level of Care Code Est Pt Level 4 (76411) Diagnoses Seronegative rheumatoid arthritis M06.00 Long-term use of hydroxychloroquine Z79.899 Screening for osteoporosis Z13.820 On sulfasalazine therapy Z79.899
[2023-11-20 14:26] VITALS: BP 128/90; PULSE 68; TEMP 36.2; O2SAT 96; BMI 31.7
== END 2023-11-20 14:55 | disposition home or self-care (01) ==
PROVIDERS: PCP Nurse Practitioner Family; Visit Provider Student in an Organized Health Care Education/Training Program
DX: M06.00 Rheumatoid arthritis without rheumatoid factor, unspecified site (principal); Z79.899 Other long term (current) drug therapy; Z13.820 Encounter for screening for osteoporosis
CPT/HCPCS: 99214

== ENCOUNTER → 2023-11-20 14:17 | Outpatient (BNVA) | payer MEDICARE, SELFPAY | PROVIDERS: PCP Nurse Practitioner Family; Visit Provider Student in an Organized Health Care Education/Training Program | DX: Z13.820 Encounter for screening for osteoporosis (principal); M06.00 Rheumatoid arthritis without rheumatoid factor, unspecified site; Z79.899 Other long term (current) drug therapy | CPT/HCPCS: 99212 ==

== ENCOUNTER 2023-11-25 10:01 | Outpatient (REF) | payer MEDICARE, SELFPAY ==
--- NOTE | ~2023-11-25 | CT_ITS ---
EXAMINATION: CT CHEST SCREENING CLINICAL INFORMATION: Current smoker with 40 pack year history. COMPARISON: Previous CTs, most recent, 09/13/2021 TECHNIQUE: Multidetector volumetric CT imaging of the chest is performed without contrast using low dose technique. Additional 2D coronal and sagittal reformatted images and axial 3D maximum intensity projection (MIP) images are generated on the CT workstation. This CT examination was performed using dose optimization techniques as appropriate, variously including the following: *Automated exposure control *Adjustment of mA and/or kV according to patient size (this includes techniques or standardized protocols for targeted exams where dose is matched to indication/reason for exam; i.e. extremities or head) *Use of iterative reconstruction technique DLP: 54 mGy-cm FINDINGS: HYDRO OPERATOR: Minor left base atelectasis. Surgical stabilizing hardware lower cervical spine. Flattening of the hemidiaphragms. LUNGS: Trachea and bronchi are patent. Mild centrilobular emphysema. Bibasilar atelectasis. Unchanged 5 mm RLL subpleural nodular focus in the setting of atelectasis, 4:48. This has demonstrated improvement from preceding 2020 studies. MEDIASTINUM: Unremarkable thyroid. No pathologic lymphadenopathy. Nonenlarged heart. No pericardial effusion. Nonaneurysmal aorta with atherosclerotic calcifications. Ectatic pulmonary arteries. CORONARY ARTERY CALCIFICATION: Mild. PLEURA: Unchanged small anterior loculated fluid collection anterior right diaphragmatic surface. No pleural mass or thickening. AXILLA: No lymphadenopathy. UPPER ABDOMEN: Stable hepatic hypodensity, likely cyst. OSSEOUS STRUCTURES: No suspicious osseous lesions. CT/CT lung screening IMPRESSION: Stable right lower lobe nodular scarring/atelectasis. No new or enlarging pulmonary nodules. Stable mild paraseptal emphysema and loculated right anterior pleural fluid collection. ASSESSMENT: Lung-RADS category 2: Benign RECOMMENDATION: Routine annual low-dose CT screening in 12 months.
== END 2023-11-25 10:02 | disposition home or self-care (01) ==
LOC: HO.CT 10:01
PROVIDERS: PCP Nurse Practitioner Family; Visit Provider Physician Assistant Medical
DX: F17.210 Nicotine dependence, cigarettes, uncomplicated (principal)
CPT/HCPCS: 71271

== ENCOUNTER 2023-12-11 13:05 | Outpatient (AMB) | payer MEDICARE, SELFPAY ==
--- NOTE | 2023-12-11 13:15 | A.OFFVIS_ITS ---
Intake Vital Signs 12/11/23 13:21 Height 5 ft 3 in Weight 176 lb BMI 31.2 BP 140/66 H Blood Pressure Location Lt brachial Position Sitting Respiration 12 Pulse 76 Pulse Source Pulse Oximeter Pulse Oximetry (%) 93 Oxygen Delivery Method Room Air Intake Visit Reasons: s/p Left C2-C3-C4 theraputic MBB Intake Note: Patient comes in for post-op appointment. Reports pain 12/07. Allergies lisinopril Allergy (Intermediate, Verified 12/11/23 13:21) Swelling clavulanic acid [From Augmentin] Allergy (Mild, Verified 12/11/23 13:21) RASH aripiprazole [From ABILIFY] Adverse Reaction (Intermediate, Verified 12/11/23 13:21) EDEMA duloxetine [From CYMBALTA] Adverse Reaction (Intermediate, Verified 12/11/23 13:21) WT GAIN/EDEMA ibuprofen Adverse Reaction (Unknown, Verified 12/11/23 13:21) kidney function HPI HPI Comments History of Present Illness Details Evelyne is very pleasant 63 years old female who presents in my office with complains on pain in the neck and left upper shoulder with radiation to the back of the head she was subject of several surgeries of the cervical spine done by Dr. Gibson. She is referred by Dr. Gibson here for the performance of the left-sided C3-C4 intra-articular steroid injection. Dr. Gibson previously performed C4-C5 C5-C6 anterior ACDF and now she reports that the patient basically is presenting with absence of intervertebral disc at C3-C4 and retrolisthesis of C3-C4 1.5 mm she thinks that disc space is completely collapsed and may fuse itself over time if we can control her symptoms. [facility] cervical spine MRI showed moderate left C3-C4 foraminal narrowing from facet arthropathy. No significant central stenosis. She was scheduled for left-sided medial branch block C2-C3 C4 therapeutic with steroids. She reported that the pain started to be relieved only 1 week after the procedure. Now she reports to me that she would like to be scheduled for right-sided procedure like this. I will schedule this procedure accordingly to the patient. It will be therapeutic C2-C3 C4 medial branch block. It will be on the right side. It was x-rays CT scans MRI the report of the x-ray dictated as below. She was subject of physical therapy prior to and after the surgeries with Dr. Gibson. She also was subject of occupational therapy. She received some injections in the past nature which she does not remember. Her past medical history significant for hypertension fatigue history of alcoholism anxiety and palpitation of the heart diabetes and arthritis. Her diabetes is currently diet controlled. Her past surgical history significant for bilateral knee replacements 2 cervical fusions in thoracic surgery 1 lumbar surgery and 1 forearms surgery. Social history: She admits smoking cigarettes 1 and half pack per day. She drinks 2-3 drinks of alcohol per week. She drinks some caffeinated beverages 2-3 cups of coffee per day. She takes cannabis from the store. [facility] Medical History Mass of right thigh Long-term use of hydroxychloroquine Alcohol abuse Chronic bronchitis Smoker Seronegative rheumatoid arthritis Pilonidal cyst Neuropathy Carpal tunnel syndrome Rheumatoid arthritis Osteomyelitis Osteoarthritis Diabetes Pleurisy Pulmonary embolism Surgical History History of total right knee replacement (TKR) H/O hernia repair History of surgery on arm History of left knee replacement (~2017) Previous back surgery (~2016) Family History Mother CHF (congestive heart failure) Stroke Uterine cancer Father CHF (congestive heart failure) Sister Diabetes Brother Diabetes Pulmonary embolism Social History Household Members: None Housing: Unknown / Unable to assess Are you a primary career services director to a significant other at home: No Unable to assess alcohol history related to: Unable to respond Alcohol intake: current Alcohol intake frequency: a few times a week Alcohol type: hard liquor Patient Tobacco Use Status: Refuse Tobacco use screen Tobacco use type: Cigarette Cigarette Packs Per Day: 1 Cigarettes Per Day: 20 Years Smoked: 40 service: No Current occupational status: unemployed Review of Systems Const All systems reviewed & are unremarkable except as noted in HPI and below Physical Exam Vital Signs: Last Vital Signs Pulse 76 12/11/23 13:21 Resp 12 12/11/23 13:21 BP 140/66 H 12/11/23 13:21 Pulse Ox 93 12/11/23 13:21 Oxygen Delivery Method Room Air 12/11/23 13:21 BMI result Body Mass Index 31.2 Const General: cooperative, comfortable and no acute distress Orientation/consciousness: patient oriented x3 Limitations: ambulation with cane HEENT Head: Yes normocephalic Neck Other: Limited range of motion of the cervical spine tenderness on palpation on paraspinal spinal region mostly on the left. Due to report of retrolisthesis maneuvers were not performed Neck: Yes normal visual inspection and No full ROM Resp Effort & Inspection: normal respiratory effort and able to speak in complete sentences Cardio Rate: regular rate Rhythm: regular rhythm GI Inspection: No distended Palpation (GI): Soft to palpation and nontender Neuro General: patient oriented x3 Extrem Other: osteoarthritic changes of both hands Left 2nd MCP swelling and tenderness, left 2nd PIP swelling and tenderness Few tender MCPs and PIPs bilaterally Significant swelling of the entire right leg with edema Claw deformities of her left toes nontender to palpation. Negative MTP squeeze test Feet are numb Assessment & Plan Assessment & Plan (1) Cervicalgia: Code(s): M54.2 - Cervicalgia Plan: (2) Postlaminectomy syndrome, cervical: Code(s): M96.1 - Postlaminectomy syndrome, not elsewhere classified Plan: (3) Arthropathy of cervical facet joint: Code(s): M47.812 - Spondylosis without myelopathy or radiculopathy, cervical region (4) Spondylosis, cervical: Code(s): M47.812 - Spondylosis without myelopathy or radiculopathy, cervical region Plan: I will schedule this patient for [id number] C2-C3 C4 therapeutic medial branch block under fluoroscopy. I wanted to discuss the procedure with the patient over the telephone however I was not able to reach the patient. I will file a booking order for procedures above. I will evaluate this patient after the injection. . (5) Chronic pain syndrome: Code(s): G89.4 - Chronic pain syndrome Plan: I will see this patient 1 month after the procedure. Plan Coding Level of Care Code Est Pt Level 3 (13580) Diagnoses Cervicalgia M54.2 Postlaminectomy syndrome, cervical M96.1 Arthropathy of cervical facet joint M47.812 Spondylosis, cervical M47.812 Chronic pain syndrome G89.4
[2023-12-11 13:21] VITALS: BP 140/66; PULSE 76; RESP 12; O2SAT 93; BMI 31.2
== END 2023-12-11 13:33 | disposition home or self-care (01) ==
PROVIDERS: PCP Nurse Practitioner Family; Visit Provider Anesthesiology
DX: M54.2 Cervicalgia (principal); M96.1 Postlaminectomy syndrome, not elsewhere classified; M47.812 Spondylosis without myelopathy or radiculopathy, cervical region; G89.4 Chronic pain syndrome
CPT/HCPCS: 99213

== ENCOUNTER → 2023-12-11 13:05 | Outpatient (BNVA) | payer MEDICARE, SELFPAY | PROVIDERS: PCP Nurse Practitioner Family; Visit Provider Anesthesiology | DX: M54.2 Cervicalgia (principal); M96.1 Postlaminectomy syndrome, not elsewhere classified; M47.812 Spondylosis without myelopathy or radiculopathy, cervical region; G89.4 Chronic pain syndrome | CPT/HCPCS: 99212 ==

== ENCOUNTER 2024-01-10 09:26 | Day surgery (SDC) | payer MEDICARE, SELFPAY ==
[2024-01-08 11:14] VITALS: BMI 29.8
[2024-01-10 09:49] VITALS: BMI 32.6
[2024-01-10 09:56] VITALS: BP 121/71; PULSE 72; RESP 16; TEMP 37; O2SAT 94
[2024-01-10] MEDS: Lactated Ringers 1,000 ML 80 ML IVCONT (10:11)
--- NOTE | 2024-01-10 10:17 | P.CONAN_ITS ---
Documented by User: Maddie Del Rosario MD 01/10/24 10:25 [facility] Past Medical History Medical History Overactive bladder Thyroid disease Elevated cholesterol Spinal stenosis Anxiety Depression HTN (hypertension) Constipation GERD (gastroesophageal reflux disease) Mass of right thigh Long-term use of hydroxychloroquine Alcohol abuse Chronic bronchitis Smoker Seronegative rheumatoid arthritis Pilonidal cyst Neuropathy Carpal tunnel syndrome Rheumatoid arthritis Osteomyelitis Osteoarthritis Diabetes Pleurisy Pulmonary embolism Family History Family History Mother CHF (congestive heart failure) Stroke Uterine cancer Father CHF (congestive heart failure) Sister Diabetes Brother Diabetes Pulmonary embolism Surgical History Surgical History History of thoracic spinal fusion Hx of cervical spine surgery History of elbow surgery H/O colonoscopy History of total right knee replacement (TKR) H/O hernia repair History of surgery on arm History of left knee replacement (~2016) Previous back surgery (~2015) History of Problems with Anesthesia: No Social History Social History Household Members: None Housing: Unknown / Unable to assess Are you a primary healthcare account manager to a significant other at home: No Unable to assess alcohol history related to: Unable to respond Alcohol intake: current Alcohol intake frequency: a few times a week Alcohol type: hard liquor Patient Tobacco Use Status: Current everyday Tobacco user Tobacco use type: Cigarette Cigarette Packs Per Day: 1.5 Cigarettes Per Day: 30.0 Years Smoked: 40 Use of substances other than those prescribed or required for medical reasons: Yes Are you DNR?: No Advance Directives: No Advance Directives Information Provided: Yes service: No Current occupational status: unemployed Meds Allergies Allergy/AdvReac Type Severity Reaction Status Date / Time lisinopril Allergy Intermediate Swelling Verified 12/11/23 13:21 clavulanic acid Allergy Mild RASH Verified 12/11/23 13:21 [From Augmentin] aripiprazole [From ABILIFY] AdvReac Intermediate EDEMA Verified 12/11/23 13:21 duloxetine [From CYMBALTA] AdvReac Intermediate WT Verified 12/11/23 13:21 GAIN/EDEMA Home Medications Medication Instructions Recorded Confirmed Last Taken Type blood sugar diagnostic (Aleshia 08/12/20 11/20/23 Unknown History Lite Strips) bupropion HCl 300 mg 24 hr tablet, 1 tab PO DAILY 08/12/20 01/08/24 Unknown History extended release docusate sodium 100 mg capsule 1 cap PO BID 08/12/20 11/20/23 Unknown History (DOK) omeprazole 20 mg capsule,delayed 1 cap PO DAILY 08/12/20 01/10/24 01/10/24 History release oxybutynin chloride 10 mg 1 tab PO DAILY 08/12/20 01/08/24 Unknown History tablet,extended release 24 hr simvastatin 20 mg tablet 1 tab PO BEDTIME 08/12/20 01/08/24 Unknown History venlafaxine 150 mg 1 cap PO DAILY 08/12/20 01/08/24 Unknown History capsule,extended release 24 hr albuterol sulfate 90 mcg/actuation 1 puff inhalation Q4H 11/08/21 11/20/23 Unknown History aerosol inhaler clotrimazole-betamethasone 1 1 appl topical BID 11/08/21 11/20/23 Unknown History %-0.05 % topical cream furosemide 20 mg tablet 20 mg PO DAILY 08/20/23 01/08/24 Unknown History pregabalin 75 mg capsule 75 mg PO TID 08/20/23 01/10/24 01/10/24 History amlodipine 2.5 mg tablet 2.5 mg PO DAILY 12/11/23 01/10/24 01/10/24 History baclofen 10 mg tablet 10 mg PO TID PRN Muscle Spasm 01/08/24 01/10/24 01/10/24 History cyclobenzaprine 10 mg tablet 10 mg PO TID 01/08/24 01/08/24 Unknown History levothyroxine 50 mcg tablet 50 mcg PO DAILY 01/08/24 01/10/24 01/10/24 History oxycodone 10 mg tablet,crush 10 mg PO Q12H 01/08/24 01/10/24 01/10/24 History resistant,extended release 12 hr oxycodone 15 mg tablet,crush 15 mg PO Q12H 01/08/24 01/10/24 01/10/24 History resistant,extended release 12 hr (OxyContin) oxycodone 20 mg tablet 20 mg PO Q6H PRN Pain 01/08/24 01/08/24 Unknown History hydroxychloroquine 200 mg tablet 200 mg PO BID 01/10/24 01/10/24 01/10/24 History Exam Airway Mallampati Class: II (edentulous) TM Dist: >3cm Neck ROM: Full Loose/Missing/Broken Teeth: Yes, Upper and Lower Heart: RRR Lungs: CTA Assessment and Plan Assessment Anesthesia Assessment: Anesthesia Plan Discussed and Chart Reviewed Final Anesthetic Review History of Problems with Anesthesia: No NPO: Yes ASA Class: III Final Preanesthetic Review: Meds/Allgs Chart Reviewed, Consent Obtained/Reviewed and Anes Risks/Benef Reviewed Patient Risk: Intermediate Procedure Risk: Low Anesthetic Plan Anesthetic Plan: MAC: Disposition: Standard PACU Documented by User: Linh Millan MD [facility] Active Problems Active Problems: All Active Problems (Updated 01/08/24 @ 10:52 by Frances Muniz RN) Chronic pain syndrome (Acute) Spondylosis, cervical (Acute) Arthropathy of cervical facet joint (Acute) Postlaminectomy syndrome, cervical (Acute) Cervicalgia (Acute) On sulfasalazine therapy (Acute) Streptococcal bacteremia (Acute) Cellulitis (Acute) Bilateral rotator cuff syndrome (Acute) Screening for osteoporosis (Acute) Peripheral vascular disease (Acute) Facial abscess (Acute) Lung mass (Acute) Pulmonary embolism (Acute) Mass of right thigh (Acute) Chronic bronchitis (Acute) Smoker (Acute) Seronegative rheumatoid arthritis (Acute) Past Medical History Medical History Overactive bladder Thyroid disease Elevated cholesterol Spinal stenosis Anxiety Depression HTN (hypertension) Constipation GERD (gastroesophageal reflux disease) Mass of right thigh Long-term use of hydroxychloroquine Alcohol abuse Chronic bronchitis Smoker Seronegative rheumatoid arthritis Pilonidal cyst Neuropathy Carpal tunnel syndrome Rheumatoid arthritis Osteomyelitis Osteoarthritis Diabetes Pleurisy Pulmonary embolism Family History Family History Mother CHF (congestive heart failure) Stroke Uterine cancer Father CHF (congestive heart failure) Sister Diabetes Brother Diabetes Pulmonary embolism Surgical History Surgical History History of thoracic spinal fusion Hx of cervical spine surgery History of elbow surgery H/O colonoscopy History of total right knee replacement (TKR) H/O hernia repair History of surgery on arm History of left knee replacement (~2017) Previous back surgery (~2016) Social History Social History Household Members: None Housing: Unknown / Unable to assess Are you a primary healthcare account manager to a significant other at home: No Unable to assess alcohol history related to: Unable to respond Alcohol intake: current Alcohol intake frequency: a few times a week Alcohol type: hard liquor Patient Tobacco Use Status: Current everyday Tobacco user Tobacco use type: Cigarette Cigarette Packs Per Day: 1.5 Cigarettes Per Day: 30.0 Years Smoked: 40 Use of substances other than those prescribed or required for medical reasons: Yes Are you DNR?: No Advance Directives: No Advance Directives Information Provided: Yes service: No Current occupational status: unemployed Meds Allergies Allergy/AdvReac Type Severity Reaction Status Date / Time lisinopril Allergy Intermediate Swelling Verified 12/11/23 13:21 clavulanic acid Allergy Mild RASH Verified 12/11/23 13:21 [From Augmentin] aripiprazole [From ABILIFY] AdvReac Intermediate EDEMA Verified 12/11/23 13:21 duloxetine [From CYMBALTA] AdvReac Intermediate WT Verified 12/11/23 13:21 GAIN/EDEMA Active Medications: Current Medications Lactated Ringer's (Lr) 1,000 mls @ 80 mls/hr IVCONT .[id number] EVIN Last Admin: 01/10/24 10:11 Dose: 80 mls/hr Home Medications Medication Instructions Recorded Confirmed Last Taken Type blood sugar diagnostic (FreeStyle 08/12/20 11/20/23 Unknown History Lite Strips) bupropion HCl 300 mg 24 hr tablet, 1 tab PO DAILY 08/12/20 01/08/24 Unknown History extended release docusate sodium 100 mg capsule 1 cap PO BID 08/12/20 11/20/23 Unknown History (DOK) omeprazole 20 mg capsule,delayed 1 cap PO DAILY 08/12/20 01/10/24 01/10/24 History release oxybutynin chloride 10 mg 1 tab PO DAILY 08/12/20 01/08/24 Unknown History tablet,extended release 24 hr simvastatin 20 mg tablet 1 tab PO BEDTIME 08/12/20 01/08/24 Unknown History venlafaxine 150 mg 1 cap PO DAILY 08/12/20 01/08/24 Unknown History capsule,extended release 24 hr albuterol sulfate 90 mcg/actuation 1 puff inhalation Q4H 11/08/21 11/20/23 Unknown History aerosol inhaler clotrimazole-betamethasone 1 1 appl topical BID 11/08/21 11/20/23 Unknown History %-0.05 % topical cream furosemide 20 mg tablet 20 mg PO DAILY 08/20/23 01/08/24 Unknown History pregabalin 75 mg capsule 75 mg PO TID 08/20/23 01/10/24 01/10/24 History amlodipine 2.5 mg tablet 2.5 mg PO DAILY 12/11/23 01/10/24 01/10/24 History baclofen 10 mg tablet 10 mg PO TID PRN Muscle Spasm 01/08/24 01/10/24 01/10/24 History cyclobenzaprine 10 mg tablet 10 mg PO TID 01/08/24 01/08/24 Unknown History levothyroxine 50 mcg tablet 50 mcg PO DAILY 01/08/24 01/10/24 01/10/24 History oxycodone 10 mg tablet,crush 10 mg PO Q12H 01/08/24 01/10/24 01/10/24 History resistant,extended release 12 hr oxycodone 15 mg tablet,crush 15 mg PO Q12H 01/08/24 01/10/24 01/10/24 History resistant,extended release 12 hr (OxyContin) oxycodone 20 mg tablet 20 mg PO Q6H PRN Pain 01/08/24 01/08/24 Unknown History hydroxychloroquine 200 mg tablet 200 mg PO BID 01/10/24 01/10/24 01/10/24 History Exam Height,Weight and Vital Signs: Height 5 ft 2 in Weight 80.853 kg Last Vital Signs Temp 98.6 F 01/10/24 09:56 Pulse 72 01/10/24 09:56 Resp 16 01/10/24 09:56 BP 121/71 01/10/24 09:56 Pulse Ox 94 01/10/24 09:56 O2 Del Method Room Air 01/10/24 09:56
--- NOTE | 2024-01-10 10:23 | MHC.SHP ---
Pre-Procedural Eval Section A - 24 Hr Update-Section A only Date of Service: 01/10/24 Section B - Complete if H&P > 30 days Chief Complaint: Encounter for screening for malignant neoplasm of Details of Present Illness: see H&P no changes Relevant Family History (Specify if Yes): No Relevant Social History: None Present Medications: see Short Stay Collaborative assessment Medical History: No relevant PMH Allergies: Allergies Allergy/AdvReac Type Severity Reaction Status Date / Time lisinopril Allergy Intermediate Swelling Verified 12/11/23 13:21 clavulanic acid Allergy Mild RASH Verified 12/11/23 13:21 [From Augmentin] aripiprazole [From ABILIFY] AdvReac Intermediate EDEMA Verified 12/11/23 13:21 duloxetine [From CYMBALTA] AdvReac Intermediate WT Verified 12/11/23 13:21 GAIN/EDEMA Review of Systems Sugical H&P ROS: Negative: Constitution, Cardiovascular, Respiratory, Neurological, Psychiatric, Hem-Onc, Allergic/Immunologic, Gastrointestinal, Genitourinary, Musculoskeletal, Integumentary, Endocrine and Eyes/Ears/Nose/Throat Exam Surgical H&P Exam: Normal: HEENT, Normal: Heart, Normal: Lungs, Normal: Extremities, Normal: Abdomen, Normal: Skin and Normal: Neurological Plan Diagnosis/Plan: Unchanged I have reviewed the history and physical and performed a pertinent physical examination on my patient. No changes have occurred unless specified. Time Spent With Patient Time: Total time managing care of this patient today ____ minutes.
[2024-01-10 11:17] VITALS: BP 116/67; PULSE 68; RESP 18; TEMP 36.3; O2SAT 100
[2024-01-10 11:32] VITALS: BP 115/70; PULSE 72; RESP 16; TEMP 36.3; O2SAT 96
[2024-01-10 11:44] VITALS: BP 123/69; PULSE 75; RESP 15; TEMP 36.4; O2SAT 97
--- NOTE | 2024-01-10 11:47 | OP_ITS ---
DATE OF SERVICE: 01/10/2024 SURGEON: Getachew Toscano MD INDICATIONS: Colon cancer screening, prior history of colon polyps PREOPERATIVE DIAGNOSIS: POSTOPERATIVE DIAGNOSIS: PROCEDURE PERFORMED: Colonoscopy to the cecum. ESTIMATED BLOOD LOSS: COMPLICATIONS: ANESTHESIA: Monitored anesthesia care. ASSISTANTS: SPECIMENS: DESCRIPTION OF PROCEDURE: A history and physical was performed. The risks and benefits of the procedure were explained to the patient. Informed consent was obtained. The patient was placed in a left lateral decubitus position. A digital rectal exam was performed and was found to be normal. The Olympus pediatric video colonoscope was introduced into the rectum and advanced to the cecum. The cecum was identified by transillumination, palpation, and identification of the ileocecal valve. Examination was performed. The scope was removed. She tolerated the procedure well and was returned to the recovery area in stable condition. FINDINGS: The terminal ileum was not examined. There was limited visualization in the cecum and right colon due to the prep with retained liquid and formed stool. This was washed and suctioned. There were other areas in the colon where there was liquid stool that was mostly able to be suctioned. No polyps were identified. There was extensive diverticulosis. Retroflexed examination was normal. IMPRESSION: Negative screening colonoscopy. RECOMMENDATION: 1. Follow up as needed. 2. Consider repeat colonoscopy in 3-5 years based on limitations of this examination. MD NANCY Villa/PRETTY / [id number]
== END 2024-01-10 12:20 | disposition home or self-care (01) ==
PROVIDERS: PCP Nurse Practitioner Family; Visit Provider Internal Medicine Gastroenterology
PROC: 0DJD8ZZ Inspection of Lower Intestinal Tract, Via Natural or Artificial Opening Endoscopic (ICD-10-PCS; CPT 45378; principal; 2024-01-10 10:40)
DX: Z12.11 Encounter for screening for malignant neoplasm of colon (principal); Z86.010 Personal history of colon polyps; K57.30 Diverticulosis of large intestine without perforation or abscess without bleeding; K59.03 Drug induced constipation; K21.9 Gastro-esophageal reflux disease without esophagitis; I10 Essential (primary) hypertension; E78.00 Pure hypercholesterolemia, unspecified; M06.9 Rheumatoid arthritis, unspecified; G62.9 Polyneuropathy, unspecified; E11.9 Type 2 diabetes mellitus without complications; N32.81 Overactive bladder; E03.9 Hypothyroidism, unspecified; F41.8 Other specified anxiety disorders; Z79.899 Other long term (current) drug therapy; Z79.891 Long term (current) use of opiate analgesic; Z88.8 Allergy status to other drugs, medicaments and biological substances; Z98.890 Other specified postprocedural states; F17.210 Nicotine dependence, cigarettes, uncomplicated
CPT/HCPCS: G0105; J2704

== ENCOUNTER 2024-01-12 05:50 | Emergency (ER) | payer MEDICARE, SELFPAY ==
--- NOTE | 2024-01-12 | ECG_ITS ---
Test Reason : fall Blood Pressure : / mmHG Vent. Rate : 069 BPM Atrial Rate : 069 BPM P-R Int : 196 ms QRS Dur : 092 ms QT Int : 384 ms P-R-T Axes : 000 131 142 degrees QTc Int : 411 ms Suspect limb lead reversal, interpretation assumes no reversal Normal sinus rhythm Left posterior fascicular block Abnormal ECG When compared with ECG of 01-DEC-2022 23:29, Vent. rate has decreased BY 77 BPM Left posterior fascicular block is now Present T wave amplitude has increased in Anterior leads T wave inversion now evident in Lateral leads Referred By: Generic ED Physician Electronically Signed By:FERMÍN CORDOBA MD
--- NOTE | ~2024-01-12 | CT_ITS ---
CT HEAD WITHOUT IV CONTRAST CT CERVICAL SPINE WITHOUT IV CONTRAST INDICATION: Head strike. COMPARISON: Head and cervical spine CT 11/29/2019. TECHNIQUE: Multidetector CT acquisitions of the head and cervical spine were obtained without IV contrast. Multiplanar reformats were acquired and utilized for image interpretation. This CT examination was performed using dose optimization techniques as appropriate, variously including the following: *Automated exposure control *Adjustment of mA and/or kV according to patient size (this includes techniques or standardized protocols for targeted exams where dose is matched to indication/reason for exam; i.e. extremities or head) *Use of iterative reconstruction technique FINDINGS: HEAD: There is no intracranial hemorrhage, hydrocephalus, extra-axial surface collection, midline shift, or other herniation pattern. Arriaga to white matter differentiation is diffusely maintained without evidence of an evolved acute territorial infarct. The basilar cisterns are preserved. No significant soft tissue abnormality. No acute osseous abnormality. The paranasal sinuses and the mastoid air cells are well aerated. CERVICAL SPINE: There are postoperative changes following ACDF at the C4-C6 levels. There is solid interbody arthrodesis at these levels. There is severe degenerative disc disease and retrosubluxation at the junctional C3-C4 level. There is also severe degenerative disc disease at C6-C7. Craniocervical junction is unremarkable. There is multilevel hypertrophic facet arthropathy. At C3-C4, retrosubluxation and disc osteophyte result in central canal stenosis that can be correlated for clinical signs of cervical myelopathy. No acute fractures and no acute subluxations. CT/CT cervical spine wo IV con IMPRESSION: - No acute intracranial abnormality. - No acute osseous abnormality within the cervical spine. Postoperative changes following ACDF at the C4-C6 levels. There is severe degenerative disc disease at the junctional C3-C4 and C6-C7 levels. At C3-C4, retrosubluxation and disc osteophyte result in central canal stenosis that can be correlated for clinical signs of cervical myelopathy.
--- NOTE | ~2024-01-12 | XR_ITS ---
EXAMINATION: XR HIP, LEFT CLINICAL INFORMATION: Left hip pain COMPARISON: 09/07/2020 TECHNIQUE: AP radiograph of the pelvis. AP and frog-lateral views of the left hip. FINDINGS: No acute fracture or malalignment. Mild bilateral hip osteoarthritis, not significantly changed. Prominent degenerative disc disease of the lower lumbar spine and enthesopathy of the anterior superior iliac crests. XR/XR hip LT w PEL1V IMPRESSION: Mild bilateral hip osteoarthritis, not significantly changed. No acute osseous abnormality.
[2024-01-12 06:02] VITALS: BP 132/68; BP 140/90; PULSE 67; PULSE 78; RESP 15; TEMP 36.6; O2SAT 90; O2SAT 99; BMI 33.3
--- NOTE | 2024-01-12 06:29 | PC.NURSE ---
pt maría elenajarek from home reports sitting forward in chair to scratch her ankle when she fell forward onto a wooden box. pt noted to have small laceration to the top of her head. pt reports having 4 nips of alcohol prior to fall. pt denies LOC and thinners. pt reporting head pain but denies neck pain.
[2024-01-12 06:44] LABS: Basophils Absolute Auto 0.1 X10*3/uL (0.0-0.2); Basophils Percent Auto 0.8 % (0-2); Eosinophils Absolute Auto 0.3 X10*3/uL (0.0-0.4); Eosinophils Percent Auto 3.5 % (0-4); Hematocrit 34.8 % (37.0-47.0); Hemoglobin 12.3 g/dl (12.0-16.0); Imm Gran Abs Auto 0.03 X10*3/uL (0.00-0.03); Imm Gran Pct Auto 0.4 % (0.0-0.4); Lymphocytes Absolute Auto 2.6 X10*3/uL (1.2-4.9); Lymphocytes Percent Auto 34.4 % (20-40); MANUAL DIFF FLAG NO; Mean Corpuscular HGB Conc 35.3 g/dl (31.0-35.0); Mean Corpuscular Hemoglobin 33.8 pg (27.0-33.0); Mean Corpuscular Volume 95.6 fL (80.0-98.0); Mean Platelet Volume 9.8 fL (9.4-12.3); Monocytes Absolute Auto 1.3 X10*3/uL (0.1-1.2); Monocytes Percent Auto 16.7 % (2-11); Neutrophils Absolute Auto 3.4 x10*3/uL (2.0-8.3); Neutrophils Percent Auto 44.2 % (45-73); PLT CLUMP 1; Red Blood Count 3.64 X10*6/uL (4.20-5.50); SCAN SMEAR FLAG 1; White Blood Count 7.7 X10*3/uL (4.8-10.8)
--- NOTE | 2024-01-12 06:44 | ED.FALL ---
HPI - Fall General Chief Complaint: Fall Stated Complaint: FALL Time Seen by Provider: 01/12/24 06:31 Source: patient and RN notes reviewed Mode of arrival: ambulatory Limitations: no limitations History of Present Illness HPI Narrative: This is a [id number], with a past medical history of rheumatoid arthritis on Plaquenil since June 2019, chronic bronchitis, PVD, pulmonary embolism in 2019 (no longer on anticoagulation), history of a right knee replacement in August 2022, who presents to the emergency department with a complaint of head injury s/p fall which occur just prior to arrival. Pt states that she was sitting in her recliner, bending forward, and started to fall asleep, and she fell forward, striking the top of her head on a wooden box. She states that she was immediately woken up by the crash on the top of her head. She reports she is having a headache, denies dizziness, lightheadedness, visual changes, chest pain, shortness of breath, abdominal pain, nausea, vomiting or diarrhea. She admits to 4 alcoholic nips prior to fall. She is not on anticoagulants. She also is having left sided hip pain, which is chronic for her. No other complaints or concerns at this time. MD complaint: fall Onset (ago): minute(s) Fall from: chair Fall witnessed: no Place fall occurred: home Loss of consciousness: none Prolonged down time: no Symptoms prior to fall: none Context: alcohol use Location of injury: head Severity: moderate Associated symptoms (after fall): headache Related Data Home Medications Medication Instructions Recorded Confirmed blood sugar diagnostic (FreeStyle 08/12/20 11/20/23 Lite Strips) bupropion HCl 300 mg 24 hr tablet, 1 tab PO DAILY 08/12/20 01/08/24 extended release docusate sodium 100 mg capsule 1 cap PO BID 08/12/20 11/20/23 (DOK) omeprazole 20 mg capsule,delayed 1 cap PO DAILY 08/12/20 01/10/24 release oxybutynin chloride 10 mg 1 tab PO DAILY 08/12/20 01/08/24 tablet,extended release 24 hr simvastatin 20 mg tablet 1 tab PO BEDTIME 08/12/20 01/08/24 venlafaxine 150 mg 1 cap PO DAILY 08/12/20 01/08/24 capsule,extended release 24 hr albuterol sulfate 90 mcg/actuation 1 puff inhalation Q4H 11/08/21 11/20/23 aerosol inhaler clotrimazole-betamethasone 1 1 appl topical BID 11/08/21 11/20/23 %-0.05 % topical cream furosemide 20 mg tablet 20 mg PO DAILY 08/20/23 01/08/24 pregabalin 75 mg capsule 75 mg PO TID 08/20/23 01/10/24 amlodipine 2.5 mg tablet 2.5 mg PO DAILY 12/11/23 01/10/24 baclofen 10 mg tablet 10 mg PO TID PRN Muscle Spasm 01/08/24 01/10/24 cyclobenzaprine 10 mg tablet 10 mg PO TID 01/08/24 01/08/24 levothyroxine 50 mcg tablet 50 mcg PO DAILY 01/08/24 01/10/24 oxycodone 10 mg tablet,crush 10 mg PO Q12H 01/08/24 01/10/24 resistant,extended release 12 hr oxycodone 15 mg tablet,crush 15 mg PO Q12H 01/08/24 01/10/24 resistant,extended release 12 hr (OxyContin) oxycodone 20 mg tablet 20 mg PO Q6H PRN Pain 01/08/24 01/08/24 hydroxychloroquine 200 mg tablet 200 mg PO BID 01/10/24 01/10/24 Previous Rx's Medication Instructions Recorded magnesium oxide 400 mg (241.3 mg 400 mg PO BIDPC #60 tabs 12/11/22 magnesium) tablet ibuprofen 600 mg tablet 600 mg PO Q8H PRN for pain #90 tabs 12/15/23 sulfasalazine 500 mg tablet 1 g (2 x 500 mg) PO BID #360 tabs 12/17/23 Allergies Allergy/AdvReac Type Severity Reaction Status Date / Time lisinopril Allergy Intermediate Swelling Verified 01/12/24 06:01 clavulanic acid Allergy Mild RASH Verified 01/12/24 06:01 [From Augmentin] aripiprazole [From ABILIFY] AdvReac Intermediate EDEMA Verified 01/12/24 06:01 duloxetine [From CYMBALTA] AdvReac Intermediate WT Verified 01/12/24 06:01 GAIN/EDEMA Review of Systems Review of Systems: Yes all other systems are reviewed and are negative Constitutional: Constitutional: Reports as per [facility] Past Medical History Attestation statement: The following information was validated with the patient. Medical History Overactive bladder Thyroid disease Elevated cholesterol Spinal stenosis Anxiety Depression HTN (hypertension) Constipation GERD (gastroesophageal reflux disease) Mass of right thigh Long-term use of hydroxychloroquine Alcohol abuse Chronic bronchitis Smoker Seronegative rheumatoid arthritis Pilonidal cyst Neuropathy Carpal tunnel syndrome Rheumatoid arthritis Osteomyelitis Osteoarthritis Diabetes Pleurisy Pulmonary embolism Surgical History History of thoracic spinal fusion Hx of cervical spine surgery History of elbow surgery H/O colonoscopy History of total right knee replacement (TKR) H/O hernia repair History of surgery on arm History of left knee replacement (~2016) Previous back surgery (~2015) Family History Family History Mother CHF (congestive heart failure) Stroke Uterine cancer Father CHF (congestive heart failure) Sister Diabetes Brother Diabetes Pulmonary embolism Social History Social History Household Members: None Housing: Unknown / Unable to assess Are you a primary pediatric acute care unit nurse to a significant other at home: No Unable to assess alcohol history related to: Unable to respond Alcohol intake: current Alcohol intake frequency: a few times a week Alcohol type: hard liquor Patient Tobacco Use Status: Current everyday Tobacco user Tobacco use type: Cigarette Cigarette Packs Per Day: 1.5 Cigarettes Per Day: 30.0 Years Smoked: 40 Smoked in Last 30 Days: Yes Use of substances other than those prescribed or required for medical reasons: Yes Substance Use Type: Marijuana Advance Directives: Yes Advance Directives Information Provided: Yes Advance Directives on File: No service: No Current occupational status: unemployed Physical Exam Vital Signs: Vital Signs: Last Vital Signs Temp 97.9 F 01/12/24 10:32 Pulse 76 01/12/24 10:32 Resp 16 01/12/24 10:32 BP 143/68 H 01/12/24 10:32 Pulse Ox 96 01/12/24 10:32 O2 Del Method Room Air 01/12/24 10:32 BMI result Body Mass Index 33.3 Const: General: cooperative, comfortable and no acute distress Orientation/consciousness: patient oriented x3 Limitations: no limitations HEENT: Head: Yes normal to inspection, Yes normocephalic, Yes atraumatic, No Brizuela's sign, No palpable skull fracture and No raccoon eyes Ears: hearing grossly normal bilaterally and TM's normal bilaterally (no hemotympanum) General nose exam: Normal external nose present Face and sinus: Yes normal facial exam Mouth: Normal oral and palatal mucosa present, oropharynx normal and moist mucous membranes Throat: Yes posterior oropharynx normal Eyes: General: appearance normal, both eyes and all related structures Eyelids: Yes eyelids normal Conjunctivae: conjunctivae normal Sclerae: sclerae normal Pupils: Equal, round and reactive pupils present EOM: EOMs intact bilaterally Neck: Other: No midline C-spine tenderness. Full range of motion of the neck. Neck: Yes normal visual inspection, Yes full ROM and Yes no lymphadenopathy Lymphatic: no lymphadenopathy noted Chest: Chest palpation & inspection: normal inspection of the chest Resp: Effort & Inspection: normal respiratory effort and able to speak in complete sentences Auscultation: clear to auscultation bilaterally, no crackles, no rales, no rhonchi and no wheezes Cardio: Rate: regular rate Rhythm: regular rhythm Heart sounds: S1 normal heart sound present and S2 normal heart sound present GI: Inspection: Yes normal to inspection Skin: Other: 3cm partial thickness L shaped laceration with 2cm partial thickness laceration noted peripendicularly to this noted to the crown of her head. +active bleeding. Mild TTP, no palpable skull fracture General skin exam: no rashes or lesions noted Trauma: no lacerations or abrasions Wounds: no wounds Neuro: General: patient oriented x3 and moves all extremities Cranial nerves: Yes CN's II-XII intact bilaterally and Yes Equal, round and reactive pupils present Cognition (Neuro): normal cognition Gait exam (Neuro): Normal gait present Motor exam (neuro): 5/5 motor strength present throughout and Pronator motor function not present Extrem: General: Yes normal to inspection Right upper extremity: normal to inspection Left upper extremity: normal to inspection Right lower extremity: normal to inspection Left lower extremity: normal to inspection Course Reevaluation(s) Reevaluation #1: CT head and neck revealed no acute findings. She does have postoperative changes at the C4-C6, severe degenerative disc disease at the junctional C3, C4 and C6-C7 levels there is retrosubluxation and disc osteophyte resulting in central canal stenosis at the C3-C4 level. 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 She has no numbness and tingling down her arms. Discussed these findings with my attending physician, and we agreed that this is likely a chronic finding in is not attributed to the fall or any acute finding. Discussed results with patient. Closed wound with alon, see procedure note. Given return precautions. She understands and agrees with plan. Stable for discharge. Time: 09:24 Medications Administered Discontinued Medications Generic Name Dose Route Start Last Admin Trade Name Freq PRN Reason Stop Dose Admin Bacitracin 1 appl 01/12/24 10:04 01/12/24 10:30 Bacitracin Oint 0.9 Gm Packet TOPICAL 01/12/24 10:05 1 appl ONCE ONE Administration Protocol Diphtheria/Tetanus/Acell Pertussis 0.5 ml 01/12/24 09:45 01/12/24 09:57 Diphth,Pertus(Acell),Tet Adult 0.5 Ml Syringe IM 01/12/24 09:46 0.5 ml .ONCE ONE Administration Procedures Laceration Laceration 1: Site: scalp Size (cm): 2 Description: linear Depth: simple, single layer Pre-repair: wound explored, irrigated extensively and deep structures intact Skin layer closed with: other (4 alon) Laceration 2: Site: scalp Size (cm): 2 Description: linear Depth: simple, single layer Pre-repair: wound explored, irrigated extensively and deep structures intact Skin layer closed with: other ( 3 alon) Laceration 3: Site: scalp Size (cm): 1 Description: linear Depth: simple, single layer Pre-repair: wound explored, irrigated extensively and deep structures intact Skin layer closed with: other (2) Medical Decision Making Medical Decision Making MDM Narrative: This is a 63-year-old female, rheumatoid arthritis on Plaquenil since June 2019, chronic bronchitis, PVD, pulmonary embolism in 2019 (no longer on anticoagulation), history of a right knee replacement in August 2022, who presents emergency department with complaints head strike prior to arrival. She fell asleep in her recliner and fell forward striking the top of her head. There are multiple lacerations requiring wound closure. Pt is neurologically intact. Plan: Labs, CT head/neck, xr hip Differential Diagnosis Differential Diagnoses: The differential diagnosis associated with the presentation includes ICH, subdural hematoma, laceration, closed head injury, cervical spine fracture, subluxation Admission/Observation Consideration of admission/observation: Escalation of care including admission/observation considered Escalation of care including admission/observation considered however given workup today not warranted at this time. Lab Data MDM Lab Attestation statement: I reviewed the patient's lab results. No leukocytosis, H&H stable, chemistry within normal limits. 01/12/24 06:35 01/12/24 06:34 Labs: Lab Results 01/12/24 01/12/24 Range/Units 06:34 06:35 WBC 7.7 (4.8-10.8) X10*3/uL RBC 3.64 L (4.20-5.50) X10*6/uL Hgb 12.3 (12.0-16.0) g/dl Hct 34.8 L (37.0-47.0) % MCV 95.6 (80.0-98.0) fL MCH 33.8 H (27.0-33.0) pg MCHC 35.3 H (31.0-35.0) g/dl RDW 13.0 (11.0-16.0) % Plt Count 225 (160-400) X10*3/uL MPV 9.8 (9.4-12.3) fL Immature Gran % (Auto) 0.4 (0.0-0.4) % Neut % (Auto) 44.2 L (45-73) % Lymph % (Auto) 34.4 (20-40) % Burke % (Auto) 16.7 H (2-11) % Eos % (Auto) 3.5 (0-4) % Baso % (Auto) 0.8 (0-2) % Lymph # (Auto) 2.6 (1.2-4.9) X10*3/uL Burke # (Auto) 1.3 H (0.1-1.2) X10*3/uL Eos # (Auto) 0.3 (0.0-0.4) X10*3/uL Baso # (Auto) 0.1 (0.0-0.2) X10*3/uL Abs Immat Gran (auto) 0.03 (0.00-0.03) X10*3/uL Absolute Neuts (auto) 3.4 (2.0-8.3) x10*3/uL Absolute Nucleated RBC 0.000 (0.0-0.012) X10*3/uL Nucleated RBC % (auto) 0.0 (0.0-0.2) /100WBC Sodium 142 (135-145) mmol/L Potassium 4.2 (3.3-5.1) mmol/L Chloride 107 (96-108) mmol/L Carbon Dioxide 24 (22-29) mmol/L Anion Gap 15 (12-20) BUN 11 (9-16) mg/dL Creatinine 0.90 (0.5-1.4) mg/dL Estim Creat Clear Calc 65.4 Estimated GFR > 60 Random Glucose 85 (60-115) mg/dL Calcium 8.7 D (8.4-10.2) mg/dL Total Bilirubin 0.1 (0.0-1.0) mg/dL AST 28 (5-31) U/L ALT 12 (0-31) U/L Alkaline Phosphatase 78 (39-117) U/L Total Protein 7.0 (6.5-8.0) g/dL Albumin 4.0 (3.5-5.0) g/dL Ethyl Alcohol 123 mg/dL Radiology Impression Discussion of test interpretation with radiology: I have reviewed the radiologist's reading. Radiologist Impression: INDICATION: Head strike. COMPARISON: Head and cervical spine CT 11/29/2019. TECHNIQUE: Multidetector CT acquisitions of the head and cervical spine were obtained without IV contrast. Multiplanar reformats were acquired and utilized for image interpretation. This CT examination was performed using dose optimization techniques as appropriate, variously including the following: *Automated exposure control *Adjustment of mA and/or kV according to patient size (this includes techniques or standardized protocols for targeted exams where dose is matched to indication/reason for exam; i.e. extremities or head) *Use of iterative reconstruction technique FINDINGS: HEAD: There is no intracranial hemorrhage, hydrocephalus, extra-axial surface collection, midline shift, or other herniation pattern. Arriaga to white matter differentiation is diffusely maintained without evidence of an evolved acute territorial infarct. The basilar cisterns are preserved. No significant soft tissue abnormality. No acute osseous abnormality. The paranasal sinuses and the mastoid air cells are well aerated. CERVICAL SPINE: There are postoperative changes following ACDF at the C4-C6 levels. There is solid interbody arthrodesis at these levels. There is severe degenerative disc disease and retrosubluxation at the junctional C3-C4 level. There is also severe degenerative disc disease at C6-C7. Craniocervical junction is unremarkable. There is multilevel hypertrophic facet arthropathy. At C3-C4, retrosubluxation and disc osteophyte result in central canal stenosis that can be correlated for clinical signs of cervical myelopathy. No acute fractures and no acute subluxations. CT/CT head/brain wo IV con IMPRESSION: - No acute intracranial abnormality. - No acute osseous abnormality within the cervical spine. Postoperative changes following ACDF at the C4-C6 levels. There is severe degenerative disc disease at the junctional C3-C4 and C6-C7 levels. At C3-C4, retrosubluxation and disc osteophyte result in central canal stenosis that can be correlated for clinical signs of cervical myelopathy. Dictated By: Zeyad Yang MD Discharge Plan Discharge Clinical Impression: Contusion of head Qualifiers: Encounter type: initial encounter Contusion of head detail: scalp Qualified Code(s): S00.03XA - Contusion of scalp, initial encounter Laceration of skin of scalp Qualifiers: Encounter type: initial encounter Qualified Code(s): S01.01XA - Laceration without foreign body of scalp, initial encounter Patient Disposition: Home, Self-Care Instructions: Laceration (ED), Staple Care (ED) Additional Instructions: You were seen in the emergency department after striking her head. Your CT of your head and neck revealed no new injury. We had to placed 9 alon in your scalp to close the lacerations. Please keep wounds clean and dry. You need to have the alon removed in 7-10 days. You may return here or follow-up with your primary care physician for the removal. You may wash her hair, gentle shampoo, pat dry, do not pick or scratch the wound. Do not submerge wound, avoid swimming until wound is fully healed. We gave you your tetanus in the department today. Watch for any signs of infection including but not limited to fevers, chills, drainage, increased redness, swelling. If any of these occur, please return for re-evaluation. Take ibuprofen or Tylenol as needed for pain. If any new or worsening symptoms occur including but not limited to worsening headache, dizziness, changes in vision, chest pain, shortness of breath, please return for re-evaluation. Prescriptions: No Action ibuprofen 600 mg tablet 600 mg PO Q8H PRN (Reason: for pain) Qty: 90 0RF sulfasalazine 500 mg tablet 1 g PO BID Qty: 360 0RF oxybutynin chloride 10 mg tablet extended release 24hr 1 tab PO DAILY venlafaxine 150 mg capsule,extended release 24hr 1 cap PO DAILY (DME) FreeStyle Lite Strips Strip 1 strip MISCELLANEOUS BID simvastatin 20 mg tablet 1 tab PO BEDTIME docusate sodium [DOK] 100 mg capsule 1 cap PO BID omeprazole 20 mg capsule,delayed release(DR/EC) 1 cap PO DAILY bupropion HCl 300 mg tablet extended release 24 hr 1 tab PO DAILY magnesium oxide 400 mg (241.3 mg magnesium) Tablet 400 mg PO BIDPC Qty: 60 0RF baclofen 10 mg tablet 10 mg PO TID PRN (Reason: Muscle Spasm) cyclobenzaprine 10 mg Tablet 10 mg PO TID oxycodone 20 mg Tablet 20 mg PO Q6H PRN (Reason: Pain) oxycodone 10 mg Tablet,Oral Only,Ext.Rel.12 Hr 10 mg PO Q12H levothyroxine 50 mcg Tablet 50 mcg PO DAILY oxycodone [OxyContin] 15 mg tablet,oral only,ext.rel.12 hr 15 mg PO Q12H hydroxychloroquine 200 mg tablet 200 mg PO BID albuterol sulfate 90 mcg/actuation HFA aerosol inhaler 1 puff inhalation Q4H clotrimazole-betamethasone 1-0.05 % cream 1 appl topical BID pregabalin 75 mg capsule 75 mg PO TID furosemide 20 mg tablet 20 mg PO DAILY amlodipine 2.5 mg tablet 2.5 mg PO DAILY Interventions: ED Discharge Assessment Last Done: 01/12/24 10:32 Discharge Date/Time: 01/12/24 11:07
[2024-01-12 06:57] LABS: Alanine Aminotransferase 12 U/L (0-31); Alkaline Phosphatase 78 U/L (39-117); Anion Gap 15 (12-20); Aspartate Amino Transferase 28 U/L (5-31); Bilirubin Total 0.1 mg/dL (0.0-1.0); Blood Urea Nitrogen 11 mg/dL (9-16); Calcium 8.7 mg/dL (8.4-10.2); Carbon Dioxide 24 mmol/L (22-29); Chloride 107 mmol/L (96-108); Creatinine Clr Calc Pharmacy 65.4; Estimated Glomerular Filt Rate > 60; Glucose Random 85 mg/dL (60-115); Potassium 4.2 mmol/L (3.3-5.1); Sodium 142 mmol/L (135-145)
[2024-01-12 07:25] LABS: Ethanol 123 mg/dL
[2024-01-12 07:33] LABS: Platelet Count 225 X10*3/uL (160-400)
--- NOTE | 2024-01-12 07:59 | PC.NURSE ---
Assumed care of this patient at 0700, patient resting quietly on stretcher at this time, waiting on ct scan results.
[2024-01-12] MEDS: Diphth,Pertus(ACell),Tet Adult 0.5 ML SYRINGE IM (09:57)
[2024-01-12] MEDS: Bacitracin Oint 0.9 GM PACKET 1 APPL TOPICAL (10:30)
[2024-01-12 10:32] VITALS: BP 143/68; PULSE 76; RESP 16; TEMP 36.6; O2SAT 96
== END 2024-01-12 11:07 | disposition home or self-care (01) ==
PROVIDERS: Physician Assistant Medical; Emergency Provider Emergency Medicine
DX: S01.01XA Laceration without foreign body of scalp, initial encounter (principal); S00.03XA Contusion of scalp, initial encounter; M25.552 Pain in left hip; M06.9 Rheumatoid arthritis, unspecified; Z79.899 Other long term (current) drug therapy; Z86.711 Personal history of pulmonary embolism; Z96.651 Presence of right artificial knee joint; W07.XXXA Fall from chair, initial encounter; Y93.9 Activity, unspecified; Y92.9 Unspecified place or not applicable; Y99.9 Unspecified external cause status
CPT/HCPCS: 12002; 36415; 70450; 72125; 73502; 80053; 80307; 85025; 90471; 90715; 93005; 99284

== ENCOUNTER → 2024-01-12 06:11 | Outpatient (BNV) | payer MEDICARE, SELFPAY | PROVIDERS: Emergency Provider Emergency Medicine; Visit Provider Internal Medicine Cardiovascular Disease | DX: R94.31 Abnormal electrocardiogram [ECG] [EKG] (principal) | CPT/HCPCS: 93010 ==

== ENCOUNTER 2024-01-18 13:51 | Outpatient (AMB) | payer MEDICARE, SELFPAY ==
[2024-01-18 13:53] VITALS: BP 120/60; PULSE 74; TEMP 37.1; O2SAT 95; BMI 33.8
--- NOTE | 2024-01-18 13:53 | AM.OFFWIN_ITS ---
Intake Vital Signs 01/18/24 13:53 Height 5 ft 2 in Weight 185 lb BMI 33.8 BP 120/60 Blood Pressure Location Lt brachial Position Sitting Pulse 74 Pulse Source Pulse Oximeter Temp 98.7 F Temp Source Oral Pulse Oximetry (%) 95 Oxygen Delivery Method Room Air Intake Visit Reasons: EP Staple Removal Intake Note: Pt is here today has 9 alon on top of head from a fall 01/12/24 Patient Tobacco Use Status: Current everyday Tobacco user Allergies lisinopril Allergy (Intermediate, Verified 01/18/24 13:57) Swelling clavulanic acid [From Augmentin] Allergy (Mild, Verified 01/18/24 13:57) RASH aripiprazole [From ABILIFY] Adverse Reaction (Intermediate, Verified 01/18/24 13:57) EDEMA duloxetine [From CYMBALTA] Adverse Reaction (Intermediate, Verified 01/18/24 13:57) WT GAIN/EDEMA HPI EP Staple Removal HPI Details Patient is a 63-year-old female comes to the walk-in clinic for staple removal a week out from lacerating her scalp from a fall. She reports that headaches and scalp tenderness is resolving, and has had no bleeding, discharge or warmth or swelling develop, and no reports of fever or chills or systemic infection symptoms. She also denies associated TBI symptoms. She reports that she was told to get the alon removed by this weekend. COUNT INCLUDES THE [facility] Medical History Overactive bladder Thyroid disease Elevated cholesterol Spinal stenosis Anxiety Depression HTN (hypertension) Constipation GERD (gastroesophageal reflux disease) Mass of right thigh Long-term use of hydroxychloroquine Alcohol abuse Chronic bronchitis Smoker Seronegative rheumatoid arthritis Pilonidal cyst Neuropathy Carpal tunnel syndrome Rheumatoid arthritis Osteomyelitis Osteoarthritis Diabetes Pleurisy Pulmonary embolism Surgical History History of thoracic spinal fusion Hx of cervical spine surgery History of elbow surgery H/O colonoscopy History of total right knee replacement (TKR) H/O hernia repair History of surgery on arm History of left knee replacement (~2017) Previous back surgery (~2016) Family History Mother CHF (congestive heart failure) Stroke Uterine cancer Father CHF (congestive heart failure) Sister Diabetes Brother Diabetes Pulmonary embolism Social History Household Members: None Housing: Unknown / Unable to assess Are you a primary direct support professional caregiver to a significant other at home: No Unable to assess alcohol history related to: Unable to respond Alcohol intake: current Alcohol intake frequency: a few times a week Alcohol type: hard liquor Patient Tobacco Use Status: Current everyday Tobacco user Tobacco use type: Cigarette Cigarette Packs Per Day: 1.5 Cigarettes Per Day: 30.0 Years Smoked: 40 Substance Use Type: Marijuana service: No Current occupational status: unemployed Physical Exam Vital Signs: Last Vital Signs Temp 98.7 F 01/18/24 13:53 Pulse 74 01/18/24 13:53 BP 120/60 01/18/24 13:53 Pulse Ox 95 01/18/24 13:53 Oxygen Delivery Method Room Air 01/18/24 13:53 BMI result Body Mass Index 33.8 HEENT Other: 3 lacerations all in a line to the mid frontal scalp, with 2 alon in the upper and lower lacerations, and 3 in the middle one. They are intact, with no edema, erythema or warmth, and no bleeding or discharge. They are mildly tender to touch. Assessment & Plan Assessment & Plan (1) Removal of alon: Code(s): Z48.02 - Encounter for removal of sutures Plan Patient is a 63-year-old female who comes to the walk-in clinic a week after lacerating her scalp for alon removal. She has no persistent headache or TBI associated symptoms, and no symptoms associated with systemic infection. Freedom are intact, and no bleeding of the wounds. Alon were removed without complication, and wound edges held with no dehiscence. There was only very mild bleeding from the puncture wood from the alon. She was advised to continue to be gentle to the laceration areas until full wound healing, and specifically to avoid combing or brushing or scratching. She understood this, and will only follow up with any issues. Coding Level of Care Code Est Pt Level 4 (05258) Diagnoses Removal of alon Z48.02
== END 2024-01-18 14:41 | disposition home or self-care (01) ==
PROVIDERS: Visit Provider Physician Assistant Medical
DX: Z48.02 Encounter for removal of sutures (principal)
CPT/HCPCS: 15853; 99051; 99213

== ENCOUNTER 2024-02-18 13:48 | Outpatient (REF) | payer MEDICARE, SELFPAY ==
[2024-02-18 16:20] LABS: MANUAL DIFF FLAG NO
[2024-02-18 16:42] LABS: Basophils Absolute Auto 0.1 X10*3/uL (0.0-0.2); Basophils Percent Auto 0.6 % (0-2); Eosinophils Absolute Auto 0.2 X10*3/uL (0.0-0.4); Eosinophils Percent Auto 2.7 % (0-4); Hematocrit 35.4 % (37.0-47.0); Imm Gran Abs Auto 0.03 X10*3/uL (0.00-0.03); Imm Gran Pct Auto 0.4 % (0.0-0.4); Mean Corpuscular HGB Conc 33.9 g/dl (31.0-35.0); Mean Corpuscular Hemoglobin 33.4 pg (27.0-33.0); Mean Corpuscular Volume 98.6 fL (80.0-98.0); Mean Platelet Volume 10.1 fL (9.4-12.3); Monocytes Absolute Auto 1.1 X10*3/uL (0.1-1.2); Monocytes Percent Auto 12.9 % (2-11); Neutrophils Percent Auto 59.4 % (45-73); Platelet Count 252 X10*3/uL (160-400); Red Blood Count 3.59 X10*6/uL (4.20-5.50); Red Cell Distribution Width 13.2 % (11.0-16.0); White Blood Count 8.4 X10*3/uL (4.8-10.8)
[2024-02-18 17:31] LABS: Alanine Aminotransferase 8 U/L (0-31); Albumin Level 4.1 g/dL (3.5-5.0); Alkaline Phosphatase 61 U/L (39-117); Anion Gap 12 (12-20); Aspartate Amino Transferase 19 U/L (5-31); Bilirubin Total 0.3 mg/dL (0.0-1.0); Blood Urea Nitrogen 23 mg/dL (9-16); C Reactive Protein 0.37 mg/dL (< or = 0.50); Carbon Dioxide 28 mmol/L (22-29); Chloride 105 mmol/L (96-108); Erythrocyte Sedimentation Rate 11 MM/HR (0-20); Estimated Glomerular Filt Rate > 60; Glucose Random 90 mg/dL (60-115); Potassium 4.2 mmol/L (3.3-5.1); Sodium 141 mmol/L (135-145); Total Protein 6.9 g/dL (6.5-8.0)
[2024-02-18 17:47] LABS: Vitamin B12 606 pg/mL (200-900)
[2024-02-20 15:23] LABS: Anti Nuclear Antibody Screen NEGATIVE (NEGATIVE)
== END 2024-02-18 13:49 | disposition home or self-care (01) ==
LOC: HO.HMGCLDS 13:48
PROVIDERS: PCP Registered Nurse; Referring Provider Psychiatry & Neurology Neurology; Visit Provider Student in an Organized Health Care Education/Training Program
DX: S39.012A Strain of muscle, fascia and tendon of lower back, initial encounter (principal); G57.10 Meralgia paresthetica, unspecified lower limb; G62.9 Polyneuropathy, unspecified; S33.5XXA Sprain of ligaments of lumbar spine, initial encounter; S33.9XXA Sprain of unspecified parts of lumbar spine and pelvis, initial encounter; X58.XXXA Exposure to other specified factors, initial encounter; Y93.9 Activity, unspecified; Y92.9 Unspecified place or not applicable; Y99.9 Unspecified external cause status
CPT/HCPCS: 36415; 80053; 82607; 85025; 85652; 86038; 86140

== ENCOUNTER 2024-02-19 14:18 | Outpatient (AMB) | payer MEDICARE, SELFPAY ==
[2024-02-19 14:19] VITALS: BP 140/76; PULSE 69; O2SAT 95; BMI 34.1
--- NOTE | 2024-02-19 14:19 | MHC.OFFVIS ---
Vital Signs 02/19/24 14:19 Height 5 ft 2 in Weight 186 lb 8.177 oz BMI 34.1 BP 140/76 H Blood Pressure Location Rt brachial Position Sitting Pulse 69 Pulse Source Pulse Oximeter Pulse Oximetry (%) 95 Oxygen Delivery Method Room Air Intake Visit Reasons: RA Intake Note: Patient last seen 11/20/23 presents today for follow up and test results. Wrapper Leaf Inspector Required: No Accompanied by: Self / Same As Patient Allergies lisinopril Allergy (Intermediate, Verified 02/19/24 14:24) Swelling clavulanic acid [From Augmentin] Allergy (Mild, Verified 02/19/24 14:24) RASH aripiprazole [From ABILIFY] Adverse Reaction (Intermediate, Verified 02/19/24 14:24) EDEMA duloxetine [From CYMBALTA] Adverse Reaction (Intermediate, Verified 02/19/24 14:24) WT GAIN/EDEMA Medication List - Last Reconciled 02/19/24 by Matthew Leyva MD albuterol sulfate 90 mcg/actuation 1 puff inhalation Q4H amlodipine 2.5 mg PO DAILY baclofen 10 mg PO TID PRN blood sugar diagnostic (FreeStyle Lite Strips) bupropion HCl XL 1 tab PO DAILY clotrimazole-betamethasone 1-0.05 % 1 appl topical BID cyclobenzaprine 10 mg PO TID docusate sodium (DOK) 1 cap PO BID furosemide 20 mg PO DAILY hydroxychloroquine 200 mg PO BID ibuprofen 600 mg PO Q8H PRN levothyroxine 50 mcg PO DAILY magnesium oxide 400 mg PO BIDPC omeprazole 1 cap PO DAILY oxybutynin chloride ER 1 tab PO DAILY oxycodone ER (OxyContin) 15 mg PO Q12H oxycodone ER 10 mg PO Q12H pregabalin 75 mg PO TID simvastatin 1 tab PO BEDTIME venlafaxine ER 1 cap PO DAILY HPI Comments Details: 63yoF presents for follow-up of seronegative RA. On Plaquenil 400mg daily since Jun 2019. Sulfasalazine 1 g Twice daily. Takes ibuprofen 600 mg 2-3 times most days. States that her pain has become much worse recently. Her neck and lower back pain is worsening. She recently reached out to her neurosurgeon. She states that she will be referred to a neurologist for radiating symptoms affecting her lower extremity. States that she has been having pain and swelling in the right 2nd and 3rd MCPs and fingers bilaterally. States that she might be going soon to her hand surgeon for trigger finger injections. Patient is tearful in clinic today due to her progressive pain [facility], [facility] Medical History Overactive bladder Thyroid disease Elevated cholesterol Spinal stenosis Anxiety Depression HTN (hypertension) Constipation GERD (gastroesophageal reflux disease) Mass of right thigh Long-term use of hydroxychloroquine Alcohol abuse Chronic bronchitis Smoker Seronegative rheumatoid arthritis Pilonidal cyst Neuropathy Carpal tunnel syndrome Rheumatoid arthritis Osteomyelitis Osteoarthritis Diabetes Pleurisy Pulmonary embolism Surgical History History of thoracic spinal fusion Hx of cervical spine surgery History of elbow surgery H/O colonoscopy History of total right knee replacement (TKR) H/O hernia repair History of surgery on arm History of left knee replacement (~2017) Previous back surgery (~2016) Family History Mother CHF (congestive heart failure) Stroke Uterine cancer Father CHF (congestive heart failure) Sister Diabetes Brother Diabetes Pulmonary embolism Social History Household Members: None Housing: Unknown / Unable to assess Are you a primary manager home healthcare to a significant other at home: No Unable to assess alcohol history related to: Unable to respond Alcohol intake: current Alcohol intake frequency: a few times a week Alcohol type: hard liquor Patient Tobacco Use Status: Current everyday Tobacco user Tobacco use type: Cigarette Cigarette Packs Per Day: 1.5 Cigarettes Per Day: 30.0 Years Smoked: 40 Substance Use Type: Marijuana service: No Current occupational status: unemployed Review of Systems Const Reports weakness Musc Reports deformity, Reports numbness, Reports stiffness and Reports tingling Neuro Reports numbness, Reports tingling and Reports weakness Physical Exam Vital Signs: Last Vital Signs Pulse 69 02/19/24 14:19 BP 140/76 H 02/19/24 14:19 Pulse Ox 95 02/19/24 14:19 Oxygen Delivery Method Room Air 02/19/24 14:19 BMI result Body Mass Index 34.1 Const Other: Tearful today General: cooperative, comfortable, no acute distress and in distress mild Orientation/consciousness: patient oriented x3 Limitations: ambulation with cane HEENT Head: Yes normocephalic Resp Effort & Inspection: normal respiratory effort and able to speak in complete sentences Cardio Rate: regular rate Rhythm: regular rhythm GI Inspection: No distended Palpation (GI): Soft to palpation and nontender Neuro General: patient oriented x3 Extrem Other: osteoarthritic changes of both hands Right 2nd and 3rd MCP swelling and tenderness as well as pain along the 2nd and 3rd extensor and 2nd and 3rd flexor tendons. Right 2nd and 3rd PIP tenderness Left 2nd and 3rd MCP swelling and tenderness as well as pain along the 2nd and 3rd extensor tendons. Left 2nd 3rd and 5th flexor tendon tenderness Claw deformities of her left toes nontender to palpation. Negative MTP squeeze test Feet are numb Results Reviewed Results Reviewed: IMAGING: ?MRI right foot 2019: Advanced arthritic changes across the midfoot including partial fusion of the 2nd TMT joint, which may be the sequela of a previous inflammatory arthropathy. Effusion with synovitis of the tibiotalar and posterior subtalar facet joints may be degenerative although could represent an inflammatory arthritis. Clinically correlate for history of rheumatoid arthritis ?Ultrasound of the hands: no evidence of synovitis in hands or wrists. Assessment & Plan Assessment & Plan (1) Seronegative rheumatoid arthritis: Comment: seroneg dx 2019. MTX (wasn't done due to alcohol abuse) HCQ 2019 SSZ added 07/2023 effective Code(s): M06.00 - Rheumatoid arthritis without rheumatoid factor, unspecified site Category: Medical Plan: This is a 63-year-old female with seronegative rheumatoid arthritis (deforming especially left ankle and foot) who presents for follow-up. She is on hydroxychloroquine 200 mg Twice daily and sulfasalazine 1000 mg Twice daily On exam she has few swollen and tender joints both hands. Her RA is fairly well controlled. Her inflammatory markers are normal. The majority of her pains are related to her spine. States that he will likely be seeing her hand surgeon soon for trigger finger injections. Those should help inflammatory arthritis in both hands. Continue sulfasalazine 1000 mg Twice daily and hydroxychloroquine 200 mg Twice daily. Can continue to use ibuprofen for now. Try to limit use as much as possible due to risk of multiple complications associated with long-term NSAID use such as increased cardiovascular events, nephrotoxicity and GI toxicity Labs before next visit in 3 month (2) Long-term use of hydroxychloroquine: Code(s): Z79.899 - Other skilled nursing (current) drug therapy Category: Medical Plan: Discussed potential side effects of hydroxychloroquine including retinopathy. Patient follows up regularly with Ophthalmology. Will schedule most recent office visits from Dr. Daley (3) Screening for osteoporosis: Code(s): Z13.820 - Encounter for screening for osteoporosis Category: Medical Plan: DEXA scan within normal 07/2022, plan to repeat this fall (4) On sulfasalazine therapy: Code(s): Z79.899 - Other skilled nursing (current) drug therapy Category: Medical Plan: Monitor safety labs Plan I spent 25 minutes reviewing patient's chart, evaluating patient, ordering diagnostic workup, counseling patient and documenting in the chart Medications: Refilled sulfasalazine 1 g (2 x 500 mg) PO BID 360 tabs 0RF NS Coding Level of Care Code Est Pt Level 4 (38661) Diagnoses Seronegative rheumatoid arthritis M06.00 Long-term use of hydroxychloroquine Z79.899 Screening for osteoporosis Z13.820 On sulfasalazine therapy Z79.899
== END 2024-02-19 14:47 | disposition home or self-care (01) ==
PROVIDERS: PCP Nurse Practitioner Family; Visit Provider Student in an Organized Health Care Education/Training Program
DX: M06.00 Rheumatoid arthritis without rheumatoid factor, unspecified site (principal); Z79.899 Other long term (current) drug therapy; Z13.820 Encounter for screening for osteoporosis
CPT/HCPCS: 99214

== ENCOUNTER → 2024-02-19 14:18 | Outpatient (BNVA) | payer MEDICARE, SELFPAY | PROVIDERS: PCP Nurse Practitioner Family; Visit Provider Student in an Organized Health Care Education/Training Program | DX: M06.00 Rheumatoid arthritis without rheumatoid factor, unspecified site (principal); Z13.820 Encounter for screening for osteoporosis; Z79.899 Other long term (current) drug therapy | CPT/HCPCS: 99212 ==

== ENCOUNTER 2024-05-19 11:28 | Outpatient (AMB) | payer MEDICARE, SELFPAY ==
[2024-05-19 11:35] VITALS: BP 138/78; PULSE 73; O2SAT 96; BMI 35.2
--- NOTE | 2024-05-19 11:35 | MHC.OFFVIS ---
Vital Signs 05/19/24 11:35 Height 5 ft 2 in Weight 192 lb 10.944 oz BMI 35.2 BP 138/78 Blood Pressure Location Lt brachial Position Sitting Pulse 73 Pulse Source Pulse Oximeter Pulse Oximetry (%) 96 Oxygen Delivery Method Room Air Intake Visit Reasons: RA/CM Intake Note: Patient last seen on 02/19/2024 present today for follow up. Accompanied by: Self / Same As Patient Allergies lisinopril Allergy (Intermediate, Verified 05/19/24 11:42) Swelling clavulanic acid [From Augmentin] Allergy (Mild, Verified 05/19/24 11:42) RASH aripiprazole [From ABILIFY] Adverse Reaction (Intermediate, Verified 05/19/24 11:42) EDEMA duloxetine [From CYMBALTA] Adverse Reaction (Intermediate, Verified 05/19/24 11:42) WT GAIN/EDEMA Medication List - Last Reconciled 05/19/24 by Matthew Leyva MD albuterol sulfate 90 mcg/actuation 1 puff inhalation Q4H amlodipine 2.5 mg PO DAILY baclofen 10 mg PO TID PRN blood sugar diagnostic (FreeStyle Lite Strips) bupropion HCl XL 1 tab PO DAILY clotrimazole-betamethasone 1-0.05 % 1 appl topical BID cyclobenzaprine 10 mg PO TID docusate sodium (DOK) 1 cap PO BID furosemide 20 mg PO DAILY hydroxychloroquine 200 mg PO BID ibuprofen 600 mg PO Q8H PRN levothyroxine 50 mcg PO DAILY magnesium oxide 400 mg PO BIDPC omeprazole 1 cap PO DAILY oxybutynin chloride ER 1 tab PO DAILY oxycodone ER (OxyContin) 15 mg PO Q12H oxycodone ER 10 mg PO Q12H pregabalin 75 mg PO TID simvastatin 1 tab PO BEDTIME sulfasalazine 1 g (2 x 500 mg) PO BID NS venlafaxine ER 1 cap PO DAILY HPI Comments Details: 63yoF presents for follow-up of seronegative RA. On Plaquenil 400mg daily since Jun 2019. Sulfasalazine 1 g Twice daily. She states that over the last month or so she has been having swelling of her right lower extremity. She states that the swelling has been persistent and getting worse. She has gained different amount of water weight. She has been taking Lasix regularly but states that she has not been diuresing as much recently. She also has left lower back/buttock pain and numbness traveling down her left lower extremity as well as pain that radiates to her shoulders with numbness. [facility] Medical History Overactive bladder Thyroid disease Elevated cholesterol Spinal stenosis Anxiety Depression HTN (hypertension) Constipation GERD (gastroesophageal reflux disease) Mass of right thigh Long-term use of hydroxychloroquine Alcohol abuse Chronic bronchitis Smoker Seronegative rheumatoid arthritis Pilonidal cyst Neuropathy Carpal tunnel syndrome Rheumatoid arthritis Osteomyelitis Osteoarthritis Diabetes Pleurisy Pulmonary embolism Surgical History History of thoracic spinal fusion Hx of cervical spine surgery History of elbow surgery H/O colonoscopy History of total right knee replacement (TKR) H/O hernia repair History of surgery on arm History of left knee replacement (~2017) Previous back surgery (~2016) Family History Mother CHF (congestive heart failure) Stroke Uterine cancer Father CHF (congestive heart failure) Sister Diabetes Brother Diabetes Pulmonary embolism Social History Household Members: None Housing: Unknown / Unable to assess Are you a primary post acute care nurse to a significant other at home: No Unable to assess alcohol history related to: Unable to respond Alcohol intake: current Alcohol intake frequency: a few times a week Alcohol type: hard liquor Patient Tobacco Use Status: Current everyday Tobacco user Tobacco use type: Cigarette Cigarette Packs Per Day: 1.5 Cigarettes Per Day: 30.0 Years Smoked: 40 Substance Use Type: Marijuana service: No Current occupational status: unemployed Review of Systems Const Reports weakness Musc Reports deformity, Reports joint swelling, Reports numbness, Reports stiffness and Reports tingling Neuro Reports numbness, Reports tingling and Reports weakness Physical Exam Vital Signs: Last Vital Signs Pulse 73 05/19/24 11:35 BP 138/78 05/19/24 11:35 Pulse Ox 96 05/19/24 11:35 Oxygen Delivery Method Room Air 05/19/24 11:35 BMI result Body Mass Index 35.2 Const General: cooperative, comfortable and no acute distress Orientation/consciousness: patient oriented x3 Limitations: ambulation with cane HEENT Head: Yes normocephalic Resp Effort & Inspection: normal respiratory effort and able to speak in complete sentences Cardio Rate: regular rate Rhythm: regular rhythm GI Inspection: No distended Palpation (GI): Soft to palpation and nontender Neuro General: patient oriented x3 Extrem Other: osteoarthritic changes of both hands No active synovitis today Significant swelling and pitting edema of her right leg all the way down her right foot. Claw deformities of her left toes nontender to palpation. Negative MTP squeeze test Feet are numb Results Reviewed Results Reviewed: IMAGING: ?MRI right foot 2019: Advanced arthritic changes across the midfoot including partial fusion of the 2nd TMT joint, which may be the sequela of a previous inflammatory arthropathy. Effusion with synovitis of the tibiotalar and posterior subtalar facet joints may be degenerative although could represent an inflammatory arthritis. Clinically correlate for history of rheumatoid arthritis ?Ultrasound of the hands: no evidence of synovitis in hands or wrists. Assessment & Plan Assessment & Plan (1) Seronegative rheumatoid arthritis: Comment: seroneg dx 2019. MTX (wasn't done due to alcohol abuse) HCQ 2019 SSZ added 07/2023 effective Code(s): M06.00 - Rheumatoid arthritis without rheumatoid factor, unspecified site Category: Medical Plan: This is a 63-year-old female with seronegative rheumatoid arthritis (deforming especially left ankle and foot) who presents for follow-up. She is on hydroxychloroquine 200 mg Twice daily and sulfasalazine 1000 mg Twice daily I do not see any active synovitis today. Her complaints are likely related to degenerative arthritis affecting multiple joints Continue sulfasalazine 1000 mg Twice daily and hydroxychloroquine 200 mg Twice daily. Patient has been taking ibuprofen 600 mg regularly anywhere from 1 tablet to 6 tablets today. She is having worsening right lower extremity swelling. Discussed that ibuprofen can cause fluid retention. Advised patient to stop ibuprofen or use it only sparingly. Discussed long-term risk of NSAID including GI, nephro and cardiotoxicity Check labs today and before next visit in 3 months (2) Long-term use of hydroxychloroquine: Code(s): Z79.899 - Other long term care pharmacist (current) drug therapy Category: Medical Plan: Discussed potential side effects of hydroxychloroquine including retinopathy. Patient follows up regularly with Ophthalmology. Will schedule most recent office visits from Dr. Daley (3) Screening for osteoporosis: Code(s): Z13.820 - Encounter for screening for osteoporosis Category: Medical Plan: DEXA scan within normal 07/2022, plan to repeat this fall (4) On sulfasalazine therapy: Code(s): Z79.899 - Other detention (current) drug therapy Category: Medical Plan: Monitor safety labs Plan I spent 25 minutes reviewing patient's chart, evaluating patient, ordering diagnostic workup, counseling patient and documenting in the chart Orders: Orders Comprehensive Met. Panel Today M06.00 - Rheumatoid arthritis without rheumatoid factor, unspecified site, Z79.899 - Other long term care pharmacist (current) drug therapy Complete Blood Count Auto Diff 3 Months M06.00 - Rheumatoid arthritis without rheumatoid factor, unspecified site, Z79.899 - Other long term care pharmacist (current) drug therapy Erythrocyte Sedimentation Rate 3 Months M06.00 - Rheumatoid arthritis without rheumatoid factor, unspecified site, Z79.899 - Other long term care pharmacist (current) drug therapy Complete Blood Count Auto Diff Today M06.00 - Rheumatoid arthritis without rheumatoid factor, unspecified site, Z79.899 - Other detention (current) drug therapy C Reactive Protein Today M06.00 - Rheumatoid arthritis without rheumatoid factor, unspecified site, Z79.899 - Other detention (current) drug therapy Erythrocyte Sedimentation Rate Today M06.00 - Rheumatoid arthritis without rheumatoid factor, unspecified site, Z79.899 - Other long term care pharmacist (current) drug therapy Comprehensive Met. Panel 3 Months M06.00 - Rheumatoid arthritis without rheumatoid factor, unspecified site, Z79.899 - Other detention (current) drug therapy C Reactive Protein 3 Months M06.00 - Rheumatoid arthritis without rheumatoid factor, unspecified site, Z79.899 - Other detention (current) drug therapy XR DEXA axial skeleton 08/07/24 M81.0 - Age-related osteoporosis without current pathological fracture Coding Level of Care Code Est Pt Level 4 (22059) Diagnoses Seronegative rheumatoid arthritis M06.00 Long-term use of hydroxychloroquine Z79.899 Screening for osteoporosis Z13.820 On sulfasalazine therapy Z79.899
== END 2024-05-19 12:14 | disposition home or self-care (01) ==
PROVIDERS: PCP Registered Nurse; Visit Provider Student in an Organized Health Care Education/Training Program
DX: M06.00 Rheumatoid arthritis without rheumatoid factor, unspecified site (principal); Z79.899 Other long term (current) drug therapy; Z13.820 Encounter for screening for osteoporosis
CPT/HCPCS: 99214

== ENCOUNTER → 2024-05-19 11:28 | Outpatient (BNVA) | payer MEDICARE, SELFPAY | PROVIDERS: PCP Nurse Practitioner Family; Visit Provider Student in an Organized Health Care Education/Training Program | DX: M06.00 Rheumatoid arthritis without rheumatoid factor, unspecified site (principal); Z79.899 Other long term (current) drug therapy | CPT/HCPCS: 99212 ==

== ENCOUNTER 2024-05-21 15:03 | Outpatient (REF) | payer MEDICARE, SELFPAY ==
[2024-05-21 16:06] LABS: MANUAL DIFF FLAG NO
[2024-05-21 16:13] LABS: Basophils Absolute Auto 0.1 X10*3/uL (0.0-0.2); Basophils Percent Auto 0.8 % (0-2); Eosinophils Absolute Auto 0.2 X10*3/uL (0.0-0.4); Eosinophils Percent Auto 2.8 % (0-4); Hematocrit 36.4 % (37.0-47.0); Imm Gran Abs Auto 0.02 X10*3/uL (0.00-0.03); Imm Gran Pct Auto 0.3 % (0.0-0.4); Lymphocytes Absolute Auto 1.7 X10*3/uL (1.2-4.9); Lymphocytes Percent Auto 26.9 % (20-40); Mean Corpuscular HGB Conc 35.7 g/dl (31.0-35.0); Mean Corpuscular Hemoglobin 33.9 pg (27.0-33.0); Mean Corpuscular Volume 94.8 fL (80.0-98.0); Mean Platelet Volume 10.2 fL (9.4-12.3); Monocytes Absolute Auto 0.9 X10*3/uL (0.1-1.2); Monocytes Percent Auto 14.1 % (2-11); Neutrophils Absolute Auto 3.5 x10*3/uL (2.0-8.3); Neutrophils Percent Auto 55.1 % (45-73); Platelet Count 250 X10*3/uL (160-400); Red Blood Count 3.84 X10*6/uL (4.20-5.50); White Blood Count 6.3 X10*3/uL (4.8-10.8)
[2024-05-21 16:57] LABS: Alanine Aminotransferase 9 U/L (0-31); Albumin Level 4.5 g/dL (3.5-5.0); Alkaline Phosphatase 88 U/L (39-117); Anion Gap 17 (12-20); Aspartate Amino Transferase 22 U/L (5-31); Bilirubin Total 0.4 mg/dL (0.0-1.0); Blood Urea Nitrogen 14 mg/dL (9-16); C Reactive Protein 1.23 mg/dL (< or = 0.50); Calcium 9.9 mg/dL (8.4-10.2); Carbon Dioxide 29 mmol/L (22-29); Chloride 100 mmol/L (96-108); Estimated Glomerular Filt Rate 58; Glucose Random 89 mg/dL (60-115); Potassium 4.6 mmol/L (3.3-5.1); Sodium 141 mmol/L (135-145); Total Protein 7.7 g/dL (6.5-8.0)
[2024-05-21 17:28] LABS: Erythrocyte Sedimentation Rate 20 MM/HR (0-20)
== END 2024-05-21 15:04 | disposition home or self-care (01) ==
LOC: HO.HMGCLDS 15:03
PROVIDERS: PCP Registered Nurse; Visit Provider Student in an Organized Health Care Education/Training Program
DX: M06.00 Rheumatoid arthritis without rheumatoid factor, unspecified site (principal); Z79.899 Other long term (current) drug therapy
CPT/HCPCS: 36415; 80053; 85025; 85652; 86140

== ENCOUNTER → 2024-06-24 14:59 | Outpatient (RCR) | payer MEDICARE, SELFPAY ==
[2020-08-12 13:16] VITALS: BP 135/64; PULSE 78; RESP 18; TEMP 36.7; O2SAT 94
[2020-08-12 13:18] VITALS: BMI 31.2
--- NOTE | 2020-08-12 14:36 | MHC.HEMONC ---
Patient here for consultation today. Seen in house last month for pulmonary embolism. ordered CT scan, Cindy working on auth. Labs drawn. Pt seen by MD. Follow up scheduled.
--- NOTE | 2020-08-12 14:37 | PM.HEMONCPN ---
Medical Summary - Medical Summary Chief complaint: Follow-up since hospital discharge Medical Summary: Diagnosis: Right lower lobe PE/pneumonia in June 2020 admitted with complaints of right pleuritic chest pain and diagnosed with nonocclusive pulmonary emboli in the right lower lobe. In addition a masslike density was also seen in the right lower lobe. Her family history significant for her brother being diagnosed with pulmonary embolism. Thrombophilia workup was negative. Interval History Interval history: Patient is here accompanied by her significant other. She is here to discuss results of imaging and further management. She states that she is feeling a lot better, her chest pain, cough and shortness of breath have resolved completely. She completed course of antibiotics. She continues to take Eliquis twice a day. She denies any bruising or bleeding. No fever, chills, loss of appetite or weight loss. Review of Systems - Constitutional Reports as per HPI, Reports no additional constitutional complaints [facility] Medical History: Medical History (Last Updated 08/12/20 @ 14:14 by Genesis Chapman RN) Carpal tunnel syndrome Diabetes Neuropathy Osteoarthritis Osteomyelitis Pilonidal cyst Pleurisy Pulmonary embolism Rheumatoid arthritis Family History: Family History (Last Updated 08/12/20 @ 13:51 by Genesis Chapman RN) Mother CHF (congestive heart failure) Stroke Uterine cancer Father CHF (congestive heart failure) Sister Diabetes Brother Diabetes Pulmonary embolism Surgical History: Surgical History (Last Updated 08/12/20 @ 14:14 by Genesis Chapman RN) H/O hernia repair History of left knee replacement Onset Date: ~2016 History of surgery on arm Previous back surgery Onset Date: ~2015 Smoking status: Current every day smoker Oncology Screenings - ECOG Performance Status ECOG Performance Status: 1 Home Medications and Allergies Home Medications Medication Instructions Recorded Confirmed Type amlodipine 1 tab PO DAILY 08/12/20 08/12/20 History apixaban [Eliquis] 1 tab PO BID 08/12/20 08/12/20 History baclofen 1 tab PO TID 08/12/20 08/12/20 History blood sugar diagnostic [FreeStyle 08/12/20 08/12/20 History Lite Strips] bupropion HCl 1 tab PO DAILY 08/12/20 08/12/20 History diclofenac sodium 4 g TOPICAL TID PRN 08/12/20 08/12/20 History docusate sodium [DOK] 1 cap PO BID 08/12/20 08/12/20 History furosemide 1 tab PO BID PRN 08/12/20 08/12/20 History gabapentin 900 mg PO TID 08/12/20 08/12/20 History hydroxychloroquine [Plaquenil] 1 tab PO BID 08/12/20 08/12/20 History hydroxyzine HCl 1 tab PO TID PRN 08/12/20 08/12/20 History levothyroxine [Euthyrox] 1 tab PO QAM 08/12/20 08/12/20 History meloxicam 1 tab PO DAILY 08/12/20 08/12/20 History metformin 1 tab PO BID 08/12/20 08/12/20 History omeprazole 1 cap PO DAILY 08/12/20 08/12/20 History oxybutynin chloride 1 tab PO DAILY 08/12/20 08/12/20 History oxycodone [OxyContin] 1 tab PO Q12H 08/12/20 08/12/20 History oxycodone-acetaminophen 2 tab PO Q6H PRN 08/12/20 08/12/20 History simvastatin 1 tab PO BEDTIME 08/12/20 08/12/20 History venlafaxine 1 cap PO DAILY 08/12/20 08/12/20 History Allergies Allergy/AdvReac Type Severity Reaction Status Date / Time amoxicillin [From Augmentin] Allergy Mild RASH Unverified 07/14/20 15:35 clavulanic acid Allergy Mild RASH Unverified 07/14/20 15:35 [From Augmentin] lisinopril Allergy Unknown Swelling Verified 08/12/20 13:31 aripiprazole [From ABILIFY] AdvReac Intermediate EDEMA Unverified 08/12/20 13:31 duloxetine [From CYMBALTA] AdvReac Intermediate WT Unverified 08/12/20 13:31 GAIN/EDEMA ibuprofen AdvReac Unknown Unknown Verified 08/12/20 13:31 NSAIDS Allergy Unknown Unknown Uncoded 08/12/20 13:31 Exam Vital signs: Vital Signs Temp 98.1 F 08/12/20 13:16 Pulse 78 08/12/20 13:16 Resp 18 08/12/20 13:16 BP 135/64 08/12/20 13:16 Pulse Ox 94 08/12/20 13:16 Intake & Output 08/11/20 08/12/20 08/12/20 18:59 06:59 18:59 Other: Weight 80.1 kg Weight 80.1 kg Body Mass Index 31.2 - Constitutional Present: no acute distress - Routine HEENT Exam Head: Present: normal inspection Eye: Present: EOMI - Routine Neck Exam Absent: lymphadenopathy - Routine Respiratory Exam Present: CTAB - Routine Cardiovascular Exam Cardiovascular: Present: RRR, S1, S2 - Routine Extremities Exam Present: pedal edema Data - Labs CBC & Chem 7: 08/12/20 14:32 08/12/20 14:32 Progress Note: A/P (1) Pulmonary embolism Status: Acute Assessment and plan: 1. This is a 59-year-old woman, chronic smoker presenting with right lower lobe pulmonary embolism, probable associated pneumonia. She is on Eliquis 5 mg b.i.d.. She finished course of antibiotics for pneumonia. Clinically she is doing better and tolerating Eliquis well. She has no prior lung problems. She continues to smoke, she was advised about smoking cessation. Thrombophilia workup was negative. Underlying malignancy is also concerned. Since there was a masslike density in the right lower lobe, repeat CT chest with contrast is being ordered. She was also advised to follow-up with pulmonary. 2. Normocytic anemia, this is improving. Probably related to recent pneumonia and PE. - Time Spent With Patient Total time spent is greater than 50% in coordination of care (as documented) at patient's floor/unit and/or counseling patient: 25 - 35 minutes
[2020-08-12 14:48] LABS: MANUAL DIFF FLAG NO
[2020-08-12 15:01] LABS: Basophils Percent Auto 0.5 % (0-2); Eosinophils Absolute Auto 0.4 X10*3/uL (0.0-0.4); Eosinophils Percent Auto 6.3 % (0-4); Hematocrit 34.4 % (37-47); Hemoglobin 11.2 g/dl (12.0-16.0); Imm Gran Abs Auto 0.01 X10*3/uL (0.00-0.03); Imm Gran Pct Auto 0.2 % (0.0-0.4); Lymphocytes Absolute Auto 1.5 X10*3/uL (1.2-4.9); Lymphocytes Percent Auto 27.4 % (20-40); Mean Corpuscular HGB Conc 32.6 g/dl (31.0-35.0); Mean Corpuscular Hemoglobin 31.9 pg (27.0-33.0); Monocytes Absolute Auto 0.7 X10*3/uL (0.1-1.2); Monocytes Percent Auto 13.2 % (2-11); Neutrophils Absolute Auto 2.9 X10*3/uL (2.0-8.3); Neutrophils Percent Auto 52.4 % (45-73); Platelet Count 259 X10*3/uL (160-400); Red Blood Count 3.51 X10*6/uL (4.20-5.50); Red Cell Distribution Width 14.5 % (11.0-16.0); White Blood Count 5.6 X10*3/uL (4.8-10.8)
[2020-08-12 15:30] LABS: Alanine Aminotransferase 8 U/L (0-31); Alkaline Phosphatase 63 U/L (39-117); Anion Gap 11 (12-20); Aspartate Amino Transferase 19 U/L (5-31); Bilirubin Total 0.3 mg/dL (0.0-1.0); Blood Urea Nitrogen 13 mg/dL (9-16); Calcium 8.9 mg/dL (8.4-10.2); Carbon Dioxide 31 mmol/L (22-29); Chloride 105 mmol/L (96-108); Creatinine Clr Calc Pharmacy 74.9; Estimated Glomerular Filt Rate > 60; Glucose Random 99 mg/dL (60-115); Potassium 5.3 mmol/l (3.3-5.1); Sodium 142 mmol/L (135-145); Total Protein 6.5 g/dL (6.5-8.0)
--- NOTE | 2020-12-07 09:16 | MHC.HEMONC ---
Pt cancelled appt today to f/u with Dr Colon. She has sx of low grade fever, coughing, poor appetite and headaches. She also c/o heartburn . She had Televisit with Dr Epstein last week. I encouraged her to call PCP to arrange for visit and possibly r/o Covid. She will call to r/s appt here. She is wanting CTA to see how her PE is and I told her Dr Colon can order that when needed. She continues on Eloquis.
[2020-12-27 12:39] VITALS: BP 135/73; PULSE 90; RESP 12; TEMP 36.2; O2SAT 95; BMI 31.8
[2020-12-27 13:04] LABS: MANUAL DIFF FLAG NO
--- NOTE | 2020-12-27 13:16 | PM.HEMONCPN ---
Medical Summary - Medical Summary Date of Service: 12/27/20 Chief complaint: Follow up Medical Summary: Diagnosis: Right lower lobe PE/pneumonia in June 2020 admitted with complaints of right pleuritic chest pain and diagnosed with nonocclusive pulmonary emboli in the right lower lobe. In addition a masslike density was also seen in the right lower lobe. Her family history significant for her brother being diagnosed with pulmonary embolism. Thrombophilia workup was negative. Interval History Interval history: Patient is here in follow-up. She has been taking Eliquis twice daily as prescribed. Unfortunately it has become rather expensive this year because of donut hole. She denies any pleuritic chest pain, cough or shortness of breath. She denies any bruising or bleeding on Eliquis. She is struggling to quit smoking. Because of the pandemic she resumed smoking after having quit for a few months. She is in a lot of pain because of her right knee problems/arthritis. She is waiting for knee replacement. She is going for a steroid injection tomorrow. Review of Systems - Constitutional Reports no additional constitutional complaints - Cardiovascular Reports no additional cardiovascular complaints - Respiratory Reports no additional respiratory complaints - Gastrointestinal Reports no additional gastrointestinal complaints [facility] Medical History: Medical History (Last Reviewed 12/01/20 @ 14:48 by Naima Epstein MD) Carpal tunnel syndrome Diabetes Neuropathy Osteoarthritis Osteomyelitis Pilonidal cyst Pleurisy Pulmonary embolism Rheumatoid arthritis Seronegative rheumatoid arthritis Smoker Family History: Family History (Last Reviewed 12/01/20 @ 14:48 by Naima Epstein MD) Mother CHF (congestive heart failure) Stroke Uterine cancer Father CHF (congestive heart failure) Sister Diabetes Brother Diabetes Pulmonary embolism Surgical History: Surgical History (Last Reviewed 12/01/20 @ 14:48 by Naima Epstein MD) H/O hernia repair History of left knee replacement Onset Date: ~2017 History of surgery on arm Previous back surgery Onset Date: ~2015 Social History: Social History (Last Reviewed 12/01/20 @ 14:48 by Naima Epstein MD) Living Situation History: Are you a 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 If so, by whom?: No Do you feel safe in your current relationship?: Yes Advance Directives: Advance Directives: No Advance Directives Information Provided: No Nutrition Assessment: Nutrition Risks: No Nutritional Risk Smoking status: Current every day smoker Home Medications and Allergies Home Medications Medication Instructions Recorded Confirmed Type amlodipine 1 tab PO DAILY 08/12/20 09/08/20 History apixaban [Eliquis] 1 tab PO BID 08/12/20 09/08/20 History baclofen 1 tab PO TID 08/12/20 09/08/20 History blood sugar diagnostic [FreeStyle 08/12/20 08/12/20 History Lite Strips] bupropion HCl 1 tab PO DAILY 08/12/20 09/08/20 History diclofenac sodium 4 g TOPICAL TID PRN 08/12/20 09/08/20 History docusate sodium [DOK] 1 cap PO BID 08/12/20 09/08/20 History furosemide 1 tab PO BID PRN 08/12/20 09/08/20 History gabapentin 900 mg PO TID 08/12/20 09/08/20 History hydroxychloroquine [Plaquenil] 1 tab PO BID 08/12/20 09/08/20 History hydroxyzine HCl 1 tab PO TID PRN 08/12/20 09/08/20 History levothyroxine [Euthyrox] 1 tab PO QAM 08/12/20 09/08/20 History meloxicam 1 tab PO DAILY 08/12/20 09/08/20 History metformin 1 tab PO BID 08/12/20 09/08/20 History omeprazole 1 cap PO DAILY 08/12/20 09/08/20 History oxybutynin chloride 1 tab PO DAILY 08/12/20 09/08/20 History oxycodone [OxyContin] 1 tab PO Q12H 08/12/20 09/08/20 History oxycodone-acetaminophen 2 tab PO Q6H PRN 08/12/20 09/08/20 History simvastatin 1 tab PO BEDTIME 08/12/20 09/08/20 History venlafaxine 1 cap PO DAILY 08/12/20 09/08/20 History Allergies Allergy/AdvReac Type Severity Reaction Status Date / Time lisinopril Allergy Intermediate Swelling Verified 09/28/20 14:23 amoxicillin [From Augmentin] Allergy Mild RASH Verified 09/28/20 14:23 clavulanic acid Allergy Mild RASH Verified 09/28/20 14:23 [From Augmentin] aripiprazole [From ABILIFY] AdvReac Intermediate EDEMA Verified 09/28/20 14:23 duloxetine [From CYMBALTA] AdvReac Intermediate WT Verified 09/28/20 14:23 GAIN/EDEMA ibuprofen AdvReac Unknown kidney Verified 09/28/20 14:23 function Exam Vital signs: Vital Signs Temp 97.2 F 12/27/20 12:39 Pulse 90 12/27/20 12:39 Resp 12 12/27/20 12:39 BP 135/73 12/27/20 12:39 Pulse Ox 95 12/27/20 12:39 Intake & Output 12/26/20 12/27/20 12/27/20 18:59 06:59 18:59 Other: Weight 81.6 kg [place] Weight in Grams [address]40 Weight 81.6 kg Body Mass Index 31.8 - Constitutional Present: no acute distress - Routine HEENT Exam Head: Present: normal inspection - Routine Neck Exam Absent: lymphadenopathy - Routine Respiratory Exam Present: CTAB - Routine Cardiovascular Exam Cardiovascular: Present: RRR, S1, S2 - Routine Extremities Exam Present: pedal edema Data - Labs CBC & Chem 7: 12/27/20 12:56 08/12/20 14:32 Labs: 08/12/20 14:32 Complete Blood Count Auto Diff Routine Comprehensive Met. Panel Routine Laboratory Last Values WBC 5.6 X10*3/uL (4.8-10.8) 08/12/20 14:32 RBC 3.51 X10*6/uL (4.20-5.50) L 08/12/20 14:32 Hgb 11.2 g/dl (12.0-16.0) L 08/12/20 14:32 Hct 34.4 % (37-47) L 08/12/20 14:32 MCV 98.0 fL (80-98) 08/12/20 14:32 MCH 31.9 pg (27.0-33.0) 08/12/20 14:32 MCHC 32.6 g/dl (31.0-35.0) 08/12/20 14:32 RDW 14.5 % (11.0-16.0) 08/12/20 14:32 Plt Count 259 X10*3/uL (160-400) 08/12/20 14:32 MPV 9.0 fL (9.4-12.3) L 08/12/20 14:32 Immature Gran % (Auto) 0.2 % (0.0-0.4) 08/12/20 14:32 Neut % (Auto) 52.4 % (45-73) 08/12/20 14:32 Lymph % (Auto) 27.4 % (20-40) 08/12/20 14:32 [place] % (Auto) 13.2 % (2-11) H 08/12/20 14:32 Eos % (Auto) 6.3 % (0-4) H 08/12/20 14:32 Baso % (Auto) 0.5 % (0-2) 08/12/20 14:32 Lymph # (Auto) 1.5 X10*3/uL (1.2-4.9) 08/12/20 14:32 [place] # (Auto) 0.7 X10*3/uL (0.1-1.2) 08/12/20 14:32 Eos # (Auto) 0.4 X10*3/uL (0.0-0.4) 08/12/20 14:32 Baso # (Auto) 0.0 X10*3/uL (0.0-0.2) 08/12/20 14:32 Abs Immat Gran (auto) 0.01 X10*3/uL (0.00-0.03) 08/12/20 14:32 Absolute Neuts (auto) 2.9 X10*3/uL (2.0-8.3) 08/12/20 14:32 Absolute Nucleated RBC 0.000 X10*3/uL (0.0-0.012) 08/12/20 14:32 Nucleated RBC % (auto) 0.0 /100WBC (0.0-0.2) 08/12/20 14:32 Sodium 142 mmol/L (135-145) 08/12/20 14:32 Potassium 5.3 mmol/l (3.3-5.1) H 08/12/20 14:32 Chloride 105 mmol/L (96-108) 08/12/20 14:32 Carbon Dioxide 31 mmol/L (22-29) H 08/12/20 14:32 Anion Gap 11 (12-20) L 08/12/20 14:32 BUN 13 mg/dL (9-16) 08/12/20 14:32 Creatinine 0.83 mg/dL (0.5-1.4) 08/12/20 14:32 Estim Creat Clear Calc 74.9 08/12/20 14:32 Estimated GFR > 60 08/12/20 14:32 Random Glucose 99 mg/dL (60-115) 08/12/20 14:32 Calcium 8.9 mg/dL (8.4-10.2) 08/12/20 14:32 Total Bilirubin 0.3 mg/dL (0.0-1.0) 08/12/20 14:32 AST 19 U/L (5-31) 08/12/20 14:32 ALT 8 U/L (0-31) 08/12/20 14:32 Alkaline Phosphatase 63 U/L (39-117) 08/12/20 14:32 Total Protein 6.5 g/dL (6.5-8.0) 08/12/20 14:32 Albumin 4.0 g/dL (3.5-5.0) 08/12/20 14:32 Progress Note: A/P (1) Pulmonary embolism Problem details: PULMONARY EMBOLISM IN , PATIENT ON ANTICOAGULATION. REMAINS ASYMPTOMATIC . SHE IS ADVISED TO CONTINUE FOLLOW-UP WITH DR. BURGOS, WHO WILL ADVISE HER WHEN TO STOP ANTICOAGULATION. Status: Acute Assessment and plan: 1. This is a 60-year-old woman, chronic smoker presenting with right lower lobe pulmonary embolism June 2020, probable associated pneumonia. She is on Eliquis 5 mg b.i.d.. She finished course of antibiotics for pneumonia. Clinically she is doing better and tolerating Eliquis well. Thrombophilia workup was negative. Repeat CT chest with contrast in August showed resolution of masslike density. She will complete 6 months of anticoagulation end of December. I have asked her to discontinue Eliquis at this time. She was strongly urged to abstain from smoking. - Time Spent With Patient Total time spent is greater than 50% in coordination of care (as documented) at patient's floor/unit and/or counseling patient: 25 - 35 minutes
[2020-12-27 13:17] LABS: Basophils Percent Auto 0.7 % (0-2); Eosinophils Absolute Auto 0.2 X10*3/uL (0.0-0.4); Eosinophils Percent Auto 3.9 % (0-4); Hemoglobin 12.1 g/dl (12.0-16.0); Imm Gran Abs Auto 0.01 X10*3/uL (0.00-0.03); Imm Gran Pct Auto 0.2 % (0.0-0.4); Lymphocytes Absolute Auto 1.7 X10*3/uL (1.2-4.9); Lymphocytes Percent Auto 29.2 % (20-40); Mean Corpuscular HGB Conc 34.6 g/dl (31.0-35.0); Mean Corpuscular Hemoglobin 33.8 pg (27.0-33.0); Mean Corpuscular Volume 97.8 fL (80-98); Mean Platelet Volume 9.1 fL (9.4-12.3); Monocytes Absolute Auto 0.7 X10*3/uL (0.1-1.2); Monocytes Percent Auto 11.8 % (2-11); Neutrophils Absolute Auto 3.2 X10*3/uL (2.0-8.3); Neutrophils Percent Auto 54.2 % (45-73); Platelet Count 272 X10*3/uL (160-400); Red Blood Count 3.58 X10*6/uL (4.20-5.50); Red Cell Distribution Width 13.5 % (11.0-16.0); White Blood Count 5.9 X10*3/uL (4.8-10.8)
[2020-12-27 13:25] LABS: D Dimer 224 NG/ML
[2020-12-27 13:47] LABS: Blood Urea Nitrogen 16 mg/dL (9-16); Creatinine Clr Calc Pharmacy 65.3; Estimated Glomerular Filt Rate > 60
--- NOTE | 2020-12-27 14:17 | MHC.HEMONCMA ---
Patient came in for a follow up today, states she is doing well. Clinical summary was reviewed and updated. Patient had labs. Patient's lab work came back and the doctor states that her counts are stable, and that she can stop the eliquis 01/26/2021. Called and left a voicemail for the patient with this information.
== END | disposition home or self-care (01) ==
LOC: HO.ONC 08-12 13:02
PROVIDERS: PCP Nurse Practitioner Family; Visit Provider Internal Medicine
DX: I26.99 Other pulmonary embolism without acute cor pulmonale (principal); R91.8 Other nonspecific abnormal finding of lung field; F17.200 Nicotine dependence, unspecified, uncomplicated; Z79.01 Long term (current) use of anticoagulants; Z71.6 Tobacco abuse counseling
CPT/HCPCS: 36415; 80053; 82565; 84520; 85025; 85379; 99214

== ENCOUNTER 2024-07-09 12:00 | Outpatient (REF) | payer MEDICARE, SELFPAY ==
[2024-07-09 13:10] LABS: MANUAL DIFF FLAG NO
[2024-07-09 13:44] LABS: Estimated Average Glucose 105 mg/dL; Hemoglobin A1c % 5.3 % (<6.0)
[2024-07-09 14:08] LABS: Anion Gap 15 (12-20); Carbon Dioxide 27 mmol/L (22-29); Chloride 105 mmol/L (96-108); Potassium 4.1 mmol/L (3.3-5.1); Sodium 143 mmol/L (135-145)
[2024-07-09 14:18] LABS: Basophils Percent Auto 0.5 % (0-2); Eosinophils Absolute Auto 0.1 X10*3/uL (0.0-0.4); Eosinophils Percent Auto 2.1 % (0-4); Hematocrit 33.3 % (37.0-47.0); Hemoglobin 12.1 g/dl (12.0-16.0); Imm Gran Abs Auto 0.04 X10*3/uL (0.00-0.03); Imm Gran Pct Auto 0.6 % (0.0-0.4); Lymphocytes Absolute Auto 1.5 X10*3/uL (1.2-4.9); Lymphocytes Percent Auto 24.2 % (20-40); Mean Corpuscular HGB Conc 36.3 g/dl (31.0-35.0); Mean Corpuscular Hemoglobin 34.1 pg (27.0-33.0); Mean Corpuscular Volume 93.8 fL (80.0-98.0); Mean Platelet Volume 10.4 fL (9.4-12.3); Monocytes Percent Auto 16.3 % (2-11); Neutrophils Absolute Auto 3.5 x10*3/uL (2.0-8.3); Neutrophils Percent Auto 56.3 % (45-73); Platelet Count 173 X10*3/uL (160-400); Red Blood Count 3.55 X10*6/uL (4.20-5.50); White Blood Count 6.3 X10*3/uL (4.8-10.8)
== END 2024-07-09 12:01 | disposition home or self-care (01) ==
LOC: HO.HMGCLDS 12:00
PROVIDERS: PCP Registered Nurse; Visit Provider Neurological Surgery
DX: M48.061 Spinal stenosis, lumbar region without neurogenic claudication (principal); Z13.1 Encounter for screening for diabetes mellitus
CPT/HCPCS: 36415; 80051; 83036; 85025

== ENCOUNTER 2024-08-18 13:14 | Outpatient (REF) | payer MEDICARE, SELFPAY ==
[2024-08-18 13:46] LABS: Basophils Absolute Auto 0.1 X10*3/uL (0.0-0.2); Basophils Percent Auto 0.8 % (0-2); Eosinophils Absolute Auto 1.3 X10*3/uL (0.0-0.4); Eosinophils Percent Auto 20.9 % (0-4); Hematocrit 32.3 % (37.0-47.0); Hemoglobin 11.3 g/dl (12.0-16.0); Imm Gran Abs Auto 0.01 X10*3/uL (0.00-0.03); Imm Gran Pct Auto 0.2 % (0.0-0.4); Lymphocytes Absolute Auto 1.3 X10*3/uL (1.2-4.9); Lymphocytes Percent Auto 21.6 % (20-40); MANUAL DIFF FLAG SCAN; Mean Corpuscular Hemoglobin 33.5 pg (27.0-33.0); Mean Corpuscular Volume 95.8 fL (80.0-98.0); Mean Platelet Volume 9.3 fL (9.4-12.3); Monocytes Absolute Auto 0.8 X10*3/uL (0.1-1.2); Monocytes Percent Auto 12.6 % (2-11); Neutrophils Absolute Auto 2.7 x10*3/uL (2.0-8.3); Neutrophils Percent Auto 43.9 % (45-73); Platelet Count 258 X10*3/uL (160-400); Red Blood Count 3.37 X10*6/uL (4.20-5.50); Red Cell Distribution Width 13.2 % (11.0-16.0); SCAN SMEAR FLAG 1; White Blood Count 6.1 X10*3/uL (4.8-10.8)
[2024-08-18 14:04] LABS: Alanine Aminotransferase 10 U/L (0-31); Alkaline Phosphatase 87 U/L (39-117); Anion Gap 11 (12-20); Aspartate Amino Transferase 33 U/L (5-31); Bilirubin Total 0.3 mg/dL (0.0-1.0); Blood Urea Nitrogen 10 mg/dL (9-16); C Reactive Protein 2.62 mg/dL (< or = 0.50); Calcium 9.3 mg/dL (8.4-10.2); Carbon Dioxide 29 mmol/L (22-29); Chloride 102 mmol/L (96-108); Estimated Glomerular Filt Rate > 60; Glucose Random 94 mg/dL (60-115); Potassium 4.1 mmol/L (3.3-5.1); Sodium 138 mmol/L (135-145); Total Protein 6.8 g/dL (6.5-8.0)
[2024-08-18 14:16] LABS: SLIDE REVIEW VERIFIED
[2024-08-18 14:33] LABS: Erythrocyte Sedimentation Rate 34 MM/HR (0-20)
== END 2024-08-18 13:15 | disposition home or self-care (01) ==
LOC: HO.LAB 13:14
PROVIDERS: Student in an Organized Health Care Education/Training Program; PCP Registered Nurse; Visit Provider Physician Assistant
DX: Z79.899 Other long term (current) drug therapy (principal); M06.00 Rheumatoid arthritis without rheumatoid factor, unspecified site
CPT/HCPCS: 36415; 80053; 85025; 85652; 86140

== ENCOUNTER 2025-01-28 13:27 | Outpatient (AMB) | payer MEDICARE, SELFPAY ==
--- NOTE | 2025-01-28 13:34 | MHC.PC.OV ---
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 Transferring care from Candice John ([facility]). Medical records have been requested and have not received. Client Consultant Required: No Tile Grinder: Present Accompanied by: Sister Allergies lisinopril Allergy (Intermediate, Verified 01/28/25 14:00) Swelling clavulanic acid [From Augmentin] Allergy (Mild, Verified 01/28/25 14:00) RASH aripiprazole [From ABILIFY] Adverse Reaction (Intermediate, Verified 01/28/25 14:00) EDEMA duloxetine [From CYMBALTA] Adverse Reaction (Intermediate, Verified 01/28/25 14:00) WT GAIN/EDEMA Medication List - Last Reconciled 01/28/25 by Lilo Davis PA-C albuterol sulfate 90 mcg/actuation 1 puff inhalation Q4H baclofen 10 mg PO TID PRN blood sugar diagnostic (FreeStyle Lite Strips) bupropion HCl XL 1 tab PO DAILY clotrimazole-betamethasone 1-0.05 % 1 appl topical BID cyclobenzaprine 10 mg PO TID docusate sodium (DOK) 1 cap PO BID furosemide 40 mg PO DAILY hydroxychloroquine 200 mg PO BID ibuprofen 600 mg PO Q8H PRN levothyroxine 88 mcg PO DAILY magnesium oxide 400 mg PO BIDPC omeprazole 1 cap PO DAILY oxybutynin chloride ER 1 tab PO DAILY oxycodone ER (OxyContin) 15 mg PO Q12H oxycodone ER 10 mg PO Q12H pregabalin 75 mg PO TID simvastatin 1 tab PO BEDTIME sulfasalazine 1 g (2 x 500 mg) PO BID NS venlafaxine ER 1 cap PO DAILY Tobacco use date assessed: 01/28/25 Dental Screening Dental Screen Date: 01/28/25 Did you have a dental visit in the last 12 months?: No Did you have a dental problem in the last 6 months where you did not have access to dental care?: No Was dental information given to patient?: Patient has dentist HPI 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 She does follow with Neurosurgery Dr. Lock, and rheumatology through [facility]. Patient was last seen by rheumatology 04/2024 for rheumatoid arthritis currently on hydroxychloroquine. Presenting with medication management and chronic pain evaluation. Noted a prolonged history of degenerative disc disease resulting in multiple surgeries (four in the back and two in the neck), leading to persistent, severe pain and restricted mobility. Chronic pain syndrome is present, with ineffectiveness in recent management plans; dissatisfaction stems from recent changes in narcotic prescriptions. Reports neuropathy in feet causing instability, managed with Lyrica, which was skipped once leading to significant exacerbation of symptoms. Long-standing tobacco use with no current cessation plan. She sees a neurosugeon 08/2024 through [place] Medical History (Updated 01/28/25 @ 14:37 by Lilo Davis PA-C) Diabetes History of pulmonary embolism Nicotine dependence, cigarettes, uncomplicated Overactive bladder Thyroid disease Elevated cholesterol Spinal stenosis Anxiety Depression HTN (hypertension) Constipation GERD (gastroesophageal reflux disease) Mass of right thigh Long-term use of hydroxychloroquine Alcohol abuse Chronic bronchitis Seronegative rheumatoid arthritis Pilonidal cyst Neuropathy Carpal tunnel syndrome Rheumatoid arthritis Osteomyelitis Osteoarthritis Pleurisy Surgical History History of thoracic spinal fusion Hx of cervical spine surgery History of elbow surgery H/O colonoscopy History of total right knee replacement (TKR) H/O hernia repair History of surgery on arm History of left knee replacement (~2017) Previous back surgery (~2016) Family History Mother CHF (congestive heart failure) Stroke Uterine cancer Father CHF (congestive heart failure) Sister Diabetes Brother Diabetes Pulmonary embolism Other Mental health disorder Substance use disorder Social History Household Members: None Housing: Apartment Are you a primary palliative care nurse practitioner to a significant other at home: No Unable to assess alcohol history related to: Unable to respond Alcohol intake: current Alcohol intake frequency: a few times a week Alcohol type: hard liquor Patient Tobacco Use Status: Current everyday Tobacco user Tobacco use type: Cigarette Cigarette Packs Per Day: 1.5 Cigarettes Per Day: 30.0 Years Smoked: 40 e-Cigarette/Vaping Use: Never Used Second Hand Smoke Exposure: Yes Substance Use Type: Marijuana service: No Current occupational status: unemployed Cognitive needs: Yes (walker, cane) Hearing needs: No Vision needs: Yes (Reading glasses) Questionnaire PHQ-9 Over the last 2 weeks, how often have you been bothered by any of the following problems? 1. Little interest or pleasure in doing things: several days 2. Feeling down, depressed, or hopeless: several days 3. Trouble falling or staying asleep, or sleeping too much: several days 4. Feeling tired or having little energy: several days 5. Poor appetite or overeating: several days 6. Feeling bad about yourself - or that you are a failure or have let yourself or your family down: several days 7. Trouble concentrating on things, such as reading the newspaper or watching television: several days 8. Moving or speaking so slowly that other people could have noticed. Or the opposite - being so fidgety or restless that you have been moving around a lot more than usual: more than half the days 9. Thoughts that you would be better off or of hurting yourself in some way: not at all Total score: 9 Depression Screening Interpretation: Positive Depression Screening Follow-up: Existing condition and In treatment Depression Screening Done: Yes Source: Developed by Drs. Giovanni Castelan, Teri Garcia, Erlin Houston and colleagues, with an educational bill from [employer]. Thrive Questionnaire Date Thrive assessed: 01/22/25 I am a: Patient What is your living situation today?: I have a steady place to live Within the past 12 months, did the food you bought not last and you didn't have the money to get more?: Never true Within the past 12 months, did you worry whether your food would run out before you got money to buy more?: Never true Do you have trouble paying for medicines?: No Do you have trouble getting transportation to medical appointments?: No Do you have trouble paying your heating and electricity bill?: No Do you have trouble taking care of your child, family member or friend?: Yes Do you have trouble with day-to-day activities such as bathing, preparing meals, shopping, managing finances, etc.?: Yes Are you currently unemployed and looking for a job?: No Are you interested in more education?: No Please select the resources that you would like help with: None Currently or been in a relationship where the following occur: No concerns reported THRIVE Score: 0 AUDIT C Alcohol Use Questionnaire (AUDIT-C) 1. How often do you have a drink containing alcohol?: Never Total Score: 0 VENANCIO-7 AMB Questionnaire VENANCIO-7 Date VENANCIO - 7 assessed: 01/28/25 Feeling nervous, anxious, or on edge: 0 = Not at all Not being able to stop or control worryin = Not at all Worrying too much about different things: 0 = Not at all Trouble relaxin = Not at all Being so restless that it is hard to sit still: 0 = Not at all Becoming easily annoyed or irritable: 0 = Not at all Feeling afraid as if something awful might happen: 0 = Not at all Total VENANCIO-7 score (0-4 normal; 5-9 mild; 10-14 moderate; 15-21 severe): 0 Source: Developed by Drs. Giovanni Castelan, eTri Garcia, Erlin Houston and colleagues, with an educational bill from [employer]. VENANCIO-7 Assessment Billing VENANCIO-7 Assessment Tool: VENANCIO-7 Assessment 61163 Review of Systems Const Denies body aches, Denies chills, Denies fever(s), Denies headache(s) and Denies poor appetite Eyes Reports no additional complaints ENT Denies dysphagia, Denies dizziness, Denies headache(s) and Denies odynophagia Card Denies chest pain, Denies syncope, Denies edema, Denies irregular heart rhythm, Denies lightheadedness and Denies dyspnea Resp Denies cough and Denies dyspnea GI Denies abdominal pain, Denies constipation, Denies dysphagia, Denies diarrhea, Denies nausea, Denies odynophagia and Denies vomiting Reports no additional complaints Musc Reports no additional complaints and Denies abnormal gait Skin/Breast Reports system reviewed and no additional complaints, except as documented Neuro Denies abnormal gait, Denies dizziness, Denies syncope and Denies headache(s) Psych Reports no additional complaints Physical exam (Primary Care) Vital Signs: Last Vital Signs Temp 97.7 F 01/28/25 13:38 Pulse 83 01/28/25 13:38 BP 120/80 01/28/25 13:38 Pulse Ox 98 01/28/25 13:38 Oxygen Delivery Method Room Air 01/28/25 13:38 BMI result Body Mass Index 34.4 Tobacco/Smoking Status: Tobacco use Status Tobacco use date assessed 01/28/25 01/28/25 13:41 Patient Tobacco Use Status Current everyday Tobacco 01/28/25 13:55 Tobacco use type Cigarette 01/28/25 13:55 e-Cigarette/Vaping Use Never Used 01/28/25 13:41 Are you ready to quit: No Tobacco cessation counseling provided: Yes Items discussed: Nicotine replacement Relapse Prevention: discussed dietary, exercise and/or lifestyle changes CPT code: Less than 3 minutes PHQ-9: PHQ-9 Score PHQ-9: Total score 9 01/29/25 07:59 Depression Screening Interpretation: Positive Depression Screening Follow-up: Existing condition and In treatment Thrive Assessment: Date of Thrive Assessment Date Thrive assessed 01/22/25 01/28/25 13:41 Currently or been in a relationship where the following occur: No concerns reported Const General: cooperative, healthy appearing, comfortable and no acute distress Orientation/consciousness: patient oriented x3 HENMT Head: Yes normocephalic Ears: hearing grossly normal bilaterally General nose exam: Normal external nose present Eyes General: appearance normal, both eyes and all related structures Conjunctivae: conjunctivae normal Neck Neck: Yes full ROM and Yes no lymphadenopathy Resp Effort & Inspection: normal respiratory effort Auscultation: clear to auscultation bilaterally, no crackles, no rales, no rhonchi and no wheezes Cardio Rate: regular rate Rhythm: regular rhythm Skin General skin exam: no rashes or lesions noted Neuro General: patient oriented x3 Gait exam (Neuro): Normal gait present Extrem General: Yes normal to inspection, Yes full ROM and No edema Psych Affect: normal affect Attitude: cooperative Insight: Good insight present (Psych) Judgement: Good judgement present (Psych) Results AMB Hemoglobin A1c AMB Hemoglobin A1c 5.7 % Last Edit by LUCIA Suazo on 01/28/25 14:11 Results Reviewed Results Reviewed: Laboratory Last Values Hgb A1c (Clinic) 5.7 % (4.0-6.0) 01/28/25 13:57 Coding Level of Care Code New Pt Level 4 (74831) Diagnoses History of pulmonary embolism Z86.711 Nicotine dependence, cigarettes, uncomplicated F17.210 Chronic pain syndrome G89.4 Postlaminectomy syndrome, cervical M96.1 Peripheral vascular disease I73.9 Lung mass R91.8 Chronic bronchitis J42 Seronegative rheumatoid arthritis M06.00 Diabetes E11.9 GERD (gastroesophageal reflux disease) K21.9 Pulsatile tinnitus H93.A9 Additional Codes VENANCIO-7 Assessment Billing - VENANCIO-7 Assessment Tool: VENANCIO-7 Assessment 89153 ([id number]) Assessment & Plan Assessment & Plan (1) History of pulmonary embolism: Comment: (Hx RLL PE 06/2020 - completed 6 months anticoag, no reccurence) Code(s): Z86.711 - Personal history of pulmonary embolism Category: Medical Plan: Patient completed 6 months of anticoagulation had no recurrence continue to monitor at this time. (2) Nicotine dependence, cigarettes, uncomplicated: Comment: (1.5ppd x 40yrs) Code(s): F17.210 - Nicotine dependence, cigarettes, uncomplicated Category: Medical Plan: Smoking cigarettes and the use of tobacco can be harmful. We discussed the importance of stopping and options to aid in smoking cessation. Discussed smoking cessation patient is not interested at this time. I reminded the patient about the importance of rescheduling her lung cancer screening. (3) Chronic pain syndrome: Code(s): G89.4 - Chronic pain syndrome Category: Medical Plan: During this visit, I addressed the patient's chronic pain syndrome, reviewing her current medication regimen, and discussed a potential continuation of oxycodone pending further consult. I discussed with the patient we do not maintain chronic narcotic prescriptions at this practice. I provided prescription of her long-acting oxycodone and advised her to follow up with pain management. I discussed it would not be refilling these medications and she would have to follow up with pain management for taper or continuation. (4) Postlaminectomy syndrome, cervical: Code(s): M96.1 - Postlaminectomy syndrome, not elsewhere classified Category: Medical Plan: See above plan for chronic pain syndrome (5) Peripheral vascular disease: Code(s): I73.9 - Peripheral vascular disease, unspecified Category: Medical Plan: Advised patient to exercise as tolerated, elevate the legs and use compression stockings. (6) Lung mass: Comment: SHE HAD A LARGE TO DENSITY IN THE RIGHT UPPER LUNG IN ADDITION TO THE PULMONARY EMBOLISM. THIS WAS A NONSPECIFIC PNEUMONITIS WHICH HAS COMPLETELY RESOLVED HAS POOR REPEAT CT SCAN IN IN AUGUST OF THIS YEAR. SHE IS IN ANNUAL LUNG SCREENING PROGRAM . Code(s): R91.8 - Other nonspecific abnormal finding of lung field Category: Medical Plan: Reminded patient about lung cancer screening and rescheduling. Patient was provided number for lung cancer screening program (7) Chronic bronchitis: Comment: She has recurrent cough due to recurrent bronchitis and this is definitely related to ongoing smoking. Has somewhat increased symptoms in the last 1 week, May have mild acute on chronic bronchitis. [place] must quit smoking . Albuterol HFa 2 puffs q 4=6 hrs PRN . Scheduled to have PFT. will recheck in 2 months . Code(s): J42 - Unspecified chronic bronchitis Category: Medical Plan: Patient is currently being managed for COPD stable on current inhaler regimen. (8) Seronegative rheumatoid arthritis: Comment: seroneg dx 2019. MTX (wasn't done due to alcohol abuse) HCQ 2019 SSZ added 07/2023 effective Code(s): M06.00 - Rheumatoid arthritis without rheumatoid factor, unspecified site Category: Medical Plan: Patient is currently on medical management for rheumatoid arthritis plan to continue on this current regimen. (9) Diabetes: Code(s): E11.9 - Type 2 diabetes mellitus without complications Category: Medical Plan: Decrease the amount of carbohydrates such as pasta, bread, rice, and potatoes and limit the amount of sweets. Although fruits are generally healthy they should be eaten in moderation as they are still high in sugar. Patient does not have a diabetic A1c at this time is not currently on medical management. (10) GERD (gastroesophageal reflux disease): Code(s): K21.9 - Gastro-esophageal reflux disease without esophagitis Category: Medical Plan: Avoid trigger foods such as citrus, tomato products, soda, caffeine, spicy foods and other foods that may be irritating to your stomach. Avoid laying flat 3-4 hours after eating and elevate the head of the bed 30 degrees to prevent acid from moving into the esophagus. (11) Pulsatile tinnitus: Code(s): H93.A9 - Pulsatile tinnitus, unspecified ear Category: Medical Plan: Patient was referred to ear nose and throat for pulsatile tinnitus at this time. Plan This note was constructed using voice recognition software. While every effort has been made to ensure accuracy and aquaculture worker, still areas may have been included sometimes these areas may affect the content or meeting of the given symptoms. Total time spent caring for the patient today was 30 minutes. This includes time spent before the visit reviewing the chart, time spent during the visit, and time spent after the visit and documentation. Patient was informed and verbally consented to the use of an ambient scribe for clinic note documentation during this visit. Orders: Orders AMB Hemoglobin A1c 01/28/25 Z13.9 - Encounter for screening, unspecified Complete Blood Count Auto Diff 01/28/25 Z00.00 - Encounter for general adult medical examination without abnormal findings Vitamin D 25-OH Total 01/28/25 Z00.00 - Encounter for general adult medical examination without abnormal findings Lipid Panel 01/28/25 Z13.220 - Encounter for screening for lipoid disorders Comprehensive Met. Panel 01/28/25 Z00.00 - Encounter for general adult medical examination without abnormal findings Vitamin B12 and Folate 01/28/25 Z00.00 - Encounter for general adult medical examination without abnormal findings TSH reflex Free T4 01/28/25 Z00.00 - Encounter for general adult medical examination without abnormal findings Free T4 (Free Thyroxine) 01/28/25 Z00.00 - Encounter for general adult medical examination without abnormal findings Referrals Ear/Nose/Throat Referral H93.A9 - Pulsatile tinnitus, unspecified ear Medications: New oxycodone ER (OxyContin) Partial Fill upon patient request - decreasing dose 15 mg PO BID 52 tabs 0RF
[2025-01-28 13:38] VITALS: BP 120/80; PULSE 83; TEMP 36.5; O2SAT 98; BMI 34.4
--- OUTSIDE RECORDS SUMMARY | 2025-01-28 14:41 | XMS_ITS ---
Author Organization [facility] Address [address] [place] [address] Care Team Providers Care Parcel Post Truck Driver Name Role Phone Cayla Peñaloza NP Primary Care Provider Getachew De Dios Jr Unavailable Allergies Allergen (clinical drug ingredient) Drug/Non Drug Allergy documented on EMR Reaction Allergy Type Onset Date Status duloxetine Cymbalta Unknown Drug Allergy Active amoxicillin / clavulanate Augmentin Unknown Drug Allergy Active aripiprazole Abilify Unknown Drug Allergy Acti ve REASON FOR VISIT Patient presents today for a colon screening Medications Medication SIG (Take, Route, Frequency, Duration) Notes Start Date End Date Status Hydroxychloroquine Sulfate 200 MG Oral for 90 Not-Taking Omeprazole 20 MG Oral for 90 A ctive sulfaSALAzine 500 MG TAKE 2 TABLETS BY MOUTH TWICE DAILY Oral for 30 Active oxyBUTYnin Chloride ER 10 MG Oral for 30 Active OxyCONTIN 15 MG TAKE 1 TABLET BY MOUTH EVERY 12 HOURS Oral for 28 Active Levothyroxine Sodium 50 MCG 1 tablet Orally Once a day Active Pregabalin 75 MG TAKE 1 CAPSULE BY MOUTH THREE TIMES DAILY Oral for 30 Active Baclofen 10 MG Oral for 30 Act bhavna Furosemide 20 MG 1 tablet Orally Once a day as needed Active oxyCODONE HCl 20 MG 1 tablet as needed Orally every 6 hrs Active Cyclobenzaprine HCl 10 MG 1 tablet Orall y Three times a day Active Simvastatin 20 MG 1 tablet in the evening Orally Once a day Active oxyCODONE HCl ER 10 MG 1 tablet Orally every 12 hrs Active Venlafaxine HCl ER 150 MG 1 capsule with food Orally Once a day Active buPROPion HCl ER (XL) 300 MG 1 tablet in the morning Orally Once a day Active Problems Problem Type SNOMED Code ICD Code Onset Dates Problem Status W/U Status Risk Notes Problem 175913057 Personal history of colonic polyps (Z86.010) Active confirmed Problem 98296952 Drug-induced constipation (K59.03) Active confirmed Problem 491884092 Colon cancer screening (Z12.11) Active confirmed Problem 850921926 Gastroesophageal reflux disease, unspecified whether esophagitis present (K21.9) Active confirmed Vital Signs Temperature 97.7 degrees Fahrenheit 11/27/19 24 Blood pressure systolic 000 mm Hg 11/27/19 24 Blood pressure diastolic 00 mm Hg 024 Height 63.5 in 11/27/2023 Weight 171 lb 5 oz lbs 11/27/2023 BMI 29.87 kg/m2 11/27/2023 Encounters Encounter Location Date Provider Diagnosis [facility] [address] [place] [address] 11/27/2023 Getachew Toscano Jr Drug-induced constipation K59.03 ; Colon cancer screening Z12.11 ; Personal history of colonic polyps Z86.010 and Gastroesophageal reflux disease, unspecified whether esophagitis present K21.9 Assessments Encounter Date Diagnosis (ICD Code) Assessment Notes Treatment Notes Treatment Clinical Notes Section Notes 11/27/2023 Drug-induced constipation (ICD-10 - K59.03) We discussed colonoscopy today. We discussed risks and benefits of the procedure today. She understands these and agrees to proceed. This will be scheduled at her convenience. She is advised to stop furosemide the day before the procedure. For her chronic constipation we discussed use of Metamucil and MiraLax. This is likely related to her narcotic usage and we discussed this as well. She does not wish to decrease the dose of any of her narcotic medications any further at this time. Reflux disease is currently stable. We discussed diet, lifestyle modifications, and weight management regarding the treatment of reflux. She will continue her present regimen. 11/27/2023 Colon cancer screening (ICD-10 - Z12.11) We discussed colonoscopy today. We discussed risks and benefits of the procedure today. She understands these and agrees to proceed. This will be scheduled at her convenience. She is advised to stop furosemide the day before the procedure. For her chronic constipation we discussed use of Metamucil and MiraLax. This is likely related to her narcotic usage and we discussed this as well. She does not wish to decrease the dose of any of her narcotic medications any further at this time. Reflux disease is currently stable. We discussed diet, lifestyle modifications, and weight management regarding the treatment of reflux. She will continue her present regimen. 11/27/2023 Personal history of colonic polyps (ICD-10 - Z86.010) We discussed colonoscopy today. We discussed risks and benefits of the procedure today. She understands these and agrees to proceed. This will be scheduled at her convenience. She is advised to stop furosemide the day before the procedure. For her chronic constipation we discussed use of Metamucil and MiraLax. This is likely related to her narcotic usage and we discussed this as well. She does not wish to decrease the dose of any of her narcotic medications any further at this time. Reflux disease is currently stable. We discussed diet, lifestyle modifications, and weight management regarding the treatment of reflux. She will continue her present regimen. 11/27/2023 Gastroesophageal reflux disease, unspecified whether esophagitis present (ICD-10 - K21.9) We discussed colonoscopy today. We discussed risks and benefits of the procedure today. She understands these and agrees to proceed. This will be scheduled at her convenience. She is advised to stop furosemide the day before the procedure. For her chronic constipation we discussed use of Metamucil and MiraLax. This is likely related to her narcotic usage and we discussed this as well. She does not wish to decrease the dose of any of her narcotic medications any further at this time. Reflux disease is currently stable. We discussed diet, lifestyle modifications, and weight management regarding the treatment of reflux. She will continue her present regimen. Plan Of Treatment Future Test Test Name Order Date COLONOSCOPY 11/27/2023 Next Appt Details Follow Up: 1 Year, Reason: Progress Notes * BEAR KRAUSE MDOB: (63 yo F)Acc No.[id number]:11/27/2023 Progress Notes Patient:?AMANDA KRAUSE Provider:?Getachew Toscano MD :1960???Age:63 Y???Sex:Female D ate:11/27/2023 Address:[address] [place], [place] [id number] Pcp:Cayla Peñaloza NP Subjective: * Chief Complaints: * ???1. Patient presents today for a colon screening. * HPI: ???New symptom(s):? Bear is a pleasant 63-year-old woman seen today in consultation. She has long-standing history of gastroesophageal reflux disease with substernal burning precipitated by typical foods including spicy foods and fatty foods. Symptoms have been well-controlled on omeprazole which he takes regularly. She has no dysphagia, hematemesis, or melena. Weight and appetite have been stable. ?She has chronic constipation symptoms which is related to her opioid use. Bowel movements generally occur about once per week and she takes Colace for this. We discussed using MiraLax today. ?Her last colonoscopy in January 2015 showed a serrated adenoma and she is due for followup. * ROS:?General/Constitutional:?Change in appetite?denies.?Fatigue?denies.?ENT:?Patient denies?difficulty swallowing.?Respiratory:?Patient denies?shortness of breath.?Cardiovascular:?Patient denies?chest pain.?Gastrointestinal:?Comments?See HPI for details.?Genitourinary:?Difficulty urinating?denies.?Incontinence?denies.?Musculoskeletal:?Patient denies?muscle aches.?Skin:?Patient denies?pruritis.?Neurologic:?Patient denies?low back pain.?Psychiatric:?Patient denies?mental or physical abuse.? * Medical History:?Neuropathy, type II diabetes, Hypertension, Anxiety/depression, Degenerative joint disease and spinal stenosis, Elevated cholesterol, Overactive bladder, Hypothyroidism, Rheumatoid arthritis, Colonoscopy 02/09, serrated adenoma, five-year followup. * Surgical History:?arthroscop ic knee, wrist, elbows surgery , 2 on cervical spine, 1 thoracic spine, 1 lumbar spine , Knee replacement surgery . * Hospitalization/Major Diagno stic Procedure:?Dental infection following extraction 01/16, Cellulitis 12/20. * Family History:?Father: dece ased, diagnosed with HTN (hypertension), Diabetes, Heart disease.? No family history of colon cancer or liver cancer. * Social History:?Tobacco Use:?Tobacco Use/Smoking?Are you a: current smoker , How often do you smoke cigarettes?: every day, How many cigarettes a day do you smoke?: 31 or more.?Drugs/Alcohol:?Alcohol Screen?Points: 2, Interpretation: Negative.?Miscellaneous:?Marital status: single. Occupation: disability. * Medications:?Taking Venlafax ine HCl ER 150 MG Capsule Extended Release 24 Hour 1 capsule with food Orally Once a day, Taking buPROPion HCl ER (XL) 300 MG Tablet Extended Release 24 Hour 1 tablet in the morning Orally Once a day, Taking Simvastatin 20 MG Tablet 1 tablet in the evening Orally Once a day, Taking Furosemide 20 MG Tablet 1 tablet Orally Once a day, Notes: as needed, Taking Cyclobenzaprine HCl 10 MG Tablet 1 tablet Orally Three times a day, Taking oxyCODONE HCl 20 MG Tablet 1 tablet as needed Orally every 6 hrs, Taking oxyCODONE HCl ER 10 MG Tablet ER 12 Hour Abuse-Deterrent 1 tablet Orally every 12 hrs, Taking Levothyroxine Sodium 50 MCG Tablet 1 tablet Orally Once a day, Taking Baclofen 10 MG Tablet Oral , Taking Pregabalin 75 MG Capsule TAKE 1 CAPSULE BY MOUTH THREE TIMES DAILY Oral , Taking OxyCONTIN 15 MG Tablet ER 12 Hour Abuse-Deterrent TAKE 1 TABLET BY MOUTH EVERY 12 HOURS Oral , Taking oxyBUTYnin Chloride ER 10 MG Tablet Extended Release 24 Hour Oral , Taking sulfaSALAzine 500 MG Tablet TAKE 2 TABLETS BY MOUTH TWICE DAILY Oral , Taking Omeprazole 20 MG Capsule Delayed Release Oral , Not-Taking/PRN Hydroxychloroquine Sulfate 200 MG Tablet Oral , Discontinued Gabapentin (PHN) 600 MG Tablet 3 tablets with evening meal Orally Once a day, Discontinued metFORMIN HCl 500 MG Tablet 1 tablet with meals Orally Twice a day, Discontinued Naproxen 500 MG Tablet 1 tablet as needed Orally every 12 hrs, Discontinued Lisinopril 20 MG Tablet 1 tablet Orally Once a day, Discontinued LORazepam 1 MG Tablet 1 tablet as needed Orally Twice a day, Discontinued Advair Diskus 100-50 MCG/DOSE Aerosol Powder Breath Activated 1 puff Inhalation Twice a day, Discontinued Colyte with Flavor Packs 240 GM Solution Reconstituted As directed Orally Over the specified time., Medication List reviewed and reconciled with the patient * Allergies:?Augmentin, Cymbal ta, Abilify. Objective: * Vitals:?Wt: 171 lb 5 oz, Ht: 63.5 in, BMI:29.87 Index, BP: 000/00 mm Hg, Temp: 97.7. * Examination: ???General Examination: ?GENERAL APPEARANCE:?in no acute distress.?HEAD:?normocephalic.?EYES:?sclera non-icteric.?ORAL CAVITY:?mucosa moist.?NECK/THYROID:?no lymphadenopathy.?SKIN:?anicteric.?HEART:?S1, S2 normal, no murmurs.?LUNGS:?clear to auscultation bilaterally.?CHEST:?normal shape and expansion.?ABDOMEN:?soft, nontender, nondistended, bowel sounds present, no organomegaly .?EXTREMITIES:?no clubbing, cyanosis, or edema.?PSYCH:?cognitive function intact.? Assessment: * Assessment: 1.?Drug-induced constipation - K59.03 (Primary)?2.?Colon cancer screening - Z12.11?3.?Personal history of colonic polyps - Z86.010?4.?Gastroesophageal reflux disease, unspecified whether esophagitis present - K21.9? We discussed colonoscopy tod antwan. We discussed risks and benefits of the procedure today. She understands these and agrees to proceed. This will be scheduled at her convenience. She is advised to stop furosemide the day before the procedure. For her chronic constipation we discussed use of Metamucil and MiraLax. This is likely related to her narcotic usage and we discussed this as well. She does not wish to decrease the dose of any of her narcotic medications any further at this time. Reflux disease is currently stable. We discussed diet, lifestyle modifications, and weight management regarding the treatment of reflux. She will continue her present regimen. Plan: * Treatment: 2.?Personal history of colonic polyps?Procedure: COLONOSCOPY (Ordered for 11/27/2023)* sched for 01/10/24 at 10:40 a mmacmiralax * Procedure Codes:?3017F COLOR ECTAL CA SCREEN DOC REV, G9902 Pt scrn tbco and id as user, G9744 PATIENT NOT ELIG D/T ACTIVE DX HTN * Preventive Medicine:? ??Counseling:?Care goal follow-up plan:?Above Normal BMI Follow-up?Giving encouragement to exercise,?BMI management provided?Yes.? * Follow Up:?1 Year * * Sign off status: Completed true * Provider:?Getachew Toscano MD Date:?0 11/27/2023 Generated for Rehan sullivan/Wali/eTransmitting on:?01/28/2025 02:41 PM EDT History and Physical Notes * HPI (History of Present Illness) Category Sub-Category Detail Notes Category Not es New symptom(s) Bear is a pleasant 63-year-old woman seen today in consultation. She has long-standing history of gastroesophageal reflux disease with substernal burning precipitated by typical foods including spicy foods and fatty foods. Symptoms have been well-controlled on omeprazole which he takes regularly. She has no dysphagia, hematemesis, or melena. Weight and appetite have been stable. She has chronic constipation symptoms which is related to her opioid use. Bowel movements generally occur about once per week and she takes Colace for this. We discussed using MiraLax today. Her last colonoscopy in January 2015 showed a serrated adenoma and she is due for followup. Examination Category Sub-Category Detail Notes Category Not es General Examination GENERAL APPEARANCE: in no acute di stress HEAD: normocephalic EYES: sclera non-icteric NECK/THYROID: no lymphadenopathy HEART: S1, S2 normal, no mu rmurs CHEST: normal shape and exp ansion LUNGS: clear to auscultatio n bilaterally ABDOMEN: soft, nontender, non distended, bowel sounds present, no organomegaly SKIN: anicteric EXTREMITIES: no clubbing, cyanosi s, or edema PSYCH: cognitive function i ntact ORAL CAVITY: mucosa moist
--- OUTSIDE RECORDS SUMMARY | 2025-01-28 14:41 | XMS_ITS ---
Author Organization [facility] Address [address] [place] [address] Care Team Providers Care Wood Panel Inspector Name Role Phone John Candice Primary Care Provider Aria Day [phone] REASON FOR VISIT cx 06/08 Encounters Encounter Location Date Provider Diagnosis [address] [address] 06/08/2024 Aria Yousif Plan Of Treatment Next Appt Details Provider Name:Aria Arnold Yousif , 04/19/2025 02:15:00 PM, [address] [place] [address], [phone], Progress Notes * Evelyne CLAUDIO MDOB: (63 yo F)Acc No.[id number]:06/08/2024 Patient:?Felicity Claudio :1960???Age:63 Y???Sex:Female Address: [place] [address] * true * Date:? Generated for Printi ng/Fayamiletg/eTransmitting on:?01/28/2025 02:41 PM EDT
--- OUTSIDE RECORDS SUMMARY | 2025-01-28 14:41 | XMS_ITS | Clinical Summary ---
Author Organization [facility] Address [address] [place] [address] Care Team Providers Care Geodetic Surveyor Name Role Phone Cayla Peñaloza NP Primary Care Provider [phone] Allergies Active Allergy Reactions Criticality Noted Date Comments Amoxicillin-Pot Clavulanate Unknown/Shanique ent and Family Unable to Define,Rash/Dermatitis Medium 04/03/2012 Aripiprazole Unknown/Patient and Family Unable to Define Medium 04/11/2021 Duloxetine Hcl Unknown/Patient and Family Unable to Define Medium 04/11/2021 Ibuprofen Unknown/Patient and Family Unable to Define Medium 01/16/2022 Penicillin G Unknown/Patient and Family Unable to Define Medium 04/11/2021 Medications Medication Sig Dispensed Refills Start Date End Date Status amLODIPine (NORVASC) 2.5 MG tablet Take 2.5 mg by mouth daily. 01/10/2022 Active buPROPion (WELLBUTRIN XL) 300 MG 24 hr tablet Take 300 mg by mouth every morning. 12/19/2021 Active docusate sodium (COLACE) 100 MG capsule Take 100 mg by mouth daily. 10/13/2021 Active gabapentin (NEURONTIN) 300 MG capsule Take 900 mg by mouth 3 (three) times a day. 12/19/2021 Active hydroxychloroquine (PLAQUENIL) 200 MG tablet Take 200 mg by mouth 2 (two) times a day. 01/10/2022 Active Euthyrox 88 MCG tablet Take 88 mcg by mouth daily on an empty stomach. 01/09/2022 Active metFORMIN (GLUCOPHAGE) 850 MG tablet Take 850 mg by mouth 2 (two) times a day. 10/12/2021 Active OMEprazole (PriLOSEC) 20 MG capsule Take 20 mg by mouth daily. 10/24/2021 Active oxybutynin (DITROPAN-XL) 10 MG 24 hr tablet Take 10 mg by mouth daily. 01/09/2022 Active oxyCODONE (ROXICODONE) 10 mg immediate release tablet Take 20 mg by mouth 3 (three) times a day. 01/11/2022 Active OxyCONTIN 20 MG ER (extended release) tablet Take 20 mg by mouth twice daily (every 12 hours). 01/15/2022 Active simvastatin (ZOCOR) 20 MG tablet Take 20 mg by mouth every evening. 11/28/2021 Active traZODone (DESYREL) 50 MG tablet Take 50 mg by mouth nightly as needed for sleep. 10/31/2021 Active venlafaxine (EFFEXOR-XR) 150 MG 24 hr capsule Take 150 mg by mouth daily. 01/09/2022 Active acetaminophen (TYLENOL) 325 MG tablet Take 325 mg by mouth 4 (four) times a day. Active metroNIDAZOLE (FLAGYL) 500 MG tabletIndications:A bscess of heel curver space of mouth Take 1 tablet (500 mg total) by mouth 2 (two) times a day. Take with meals or food to reduce stomach upset. 44 tablet 01/27/2022 Active cephalexin (KEFLEX) 500 MG capsuleIndications: Abscess of heel curver space of mouth Take 2 capsules (1,000 mg total) by mouth 2 (two) times a day. 88 capsule 01/27/2022 Active baclofen (LIORESAL) 5 MG tabletIndications:A bscess of heel curver space of mouth Take 3 tablets (15 mg total) by mouth 3 (three) times a day. 90 tablet 2 01/27/2022 Active chlorhexidine (PERIDEX) 0.12 % oral solutionIndications :Submandibular abscess Apply 15 mL to the mouth or throat 3 (three) times a day in the morning, afternoon and the early evening.. 473 mL 1 02/12/2022 Active Active Problems Problem Noted Date Diagnosed Date Abscess of heel curver space of mouth 01/16/2022 Overview (01/16/2022): Added automatically from request for surgery [id number] Facial abscess 01/16/2022 Family History Medical History Relation Name Comments Heart disease Mother Relation Name Status Comments Mother Social History Tobacco Use Types Packs/Day Years Used Date Smoking Tobacco: Every Day Smokeless Tobacco: Never Alcohol Use Standard Drinks/Week Comments Yes 0 (1 standard drink = 0.6 oz pur e alcohol) Sex and Gender Information Value Date Recorded Sex Assigned at Not on file Gender Identity Not on file Sexual Orientation Not on file Last Filed Vital Signs Vital Sign Reading Time Taken Comments Blood Pressure 110/60 01/27/2022 8:23 AM EDT Pulse 70 01/27/2022 5:00 AM EDT Temperature 36.1 ??C (97 ??F) 01/27/2022 5:00 AM EDT Respiratory Rate 18 01/27/2022 5:00 AM EDT Oxygen Saturation 96% 01/27/2022 5:00 AM EDT Inhaled Oxygen Concentration - - Weight 93.4 kg (206 lb) 01/24/2022 11:42 AM EDT Height 165.1 cm (5' 5 ) 01/24/2022 11:42 AM EDT Body Mass Index 34.28 01/24/2022 11:42 AM EDT Plan of Treatment Health Maintenance Due Date Last Done Comments Hepatitis C Virus Screening 1960 HIV Screening 1975 DTaP/Tdap/Td Vaccines (1 - Tdap) 1981 Pneumococcal Vaccines 50+ (1 of 2 - PCV) 1981 Zoster (Shingles) Vaccine (1 of 2) 1981 Pap Smear (Ages 21-65) 1983 Mammogram 2002 Colonoscopy 2007 COVID-19 Vaccine (3 - Pfizer risk series) 03/03/2021 02/03/2021, 01/13/2021 RSV Vaccine 60 years and older and Patients (1 - Risk 60-74 years 1-dose series) 2022 Influenza Vaccine 05/28/2024 07/26/2020, 07/21/2019, 07/29/2018 Chronic Controlled Substance User PDMP Review Discontinued 01/16/2022 Hepatitis B Vaccines Aged Out No long er eligible based on patient's age to complete this topic Advance Directives * Full Code (Latest Code Status on File) Date Activated Date Inactivated Comments 01/16/2022 11:40 PM Care Teams Geodetic Surveyor Relationship Specialty Start Date End Date Cayla Peñaloza NP [address] [place] [address] PCP - General Family Medicine 01/16/22
--- OUTSIDE RECORDS SUMMARY | 2025-01-28 14:41 | XMS_ITS ---
Author Organization [facility] Address [address] [place] [address] Care Team Providers Care Guest Specialist Name Role Phone Candice John Primary Care Provider Aria Day [phone] Encounters Encounter Location Date Provider Diagnosis [facility] [address] [place] [address] 06/08/2024 Aria Dodd Plan Of Treatment Next Appt Details Provider Name:Aria Dodd , 04/19/2025 02:15:00 PM, [address] [place] [address], [phone], Progress Notes * Evelyne CLAUDIO MDOB: (64 yo F)Acc No.[id number]:06/08/2024 Progress Note Patient:?Felicity CLAUDIO Provider:?Aria Dodd DPM :1960???Age:63 Y???Sex:Female D ate:06/08/2024 Address:[address] [place], [place] [id number] Pcp:Candice John Subjective: * Chief Complaints: * ??? * Medical History:? Objective: * Vitals:? Assessment: Plan: * Treatment: * Images: * The named appointment provid er may or may not be the originator of this progress note, and it is not deemed complete until electronically signed by the appointment provider. Sign off status: Pending * Provider:?Aria Dodd DPM Date:?2023 Generated for Rehan sullivan/Wali/Elab on:?01/28/2025 02:41 PM EDT
--- OUTSIDE RECORDS SUMMARY | 2025-01-28 14:42 | XMS_ITS | Patient Health Record ---
Author Organization [facility] Address [address] [place] [address] Care Team Providers Care Shot Packer Name Role Phone Anabela CANTRELL, Cayla Primary Care Provider Getachew De Dios Jr Unavailable [phone] Allergies Allergen (clinical drug ingredient) Drug/Non Drug Allergy documented on EMR Reaction Allergy Type Onset Date Status duloxetine Cymbalta Unknown Drug Allergy Active amoxicillin / clavulanate Augmentin Unknown Drug Allergy Active aripiprazole Abilify Unknown Drug Allergy Acti ve Reason For Referral No Information Medications Medication SIG (Take, Route, Frequency, Duration) Notes Start Date End Date Status Venlafaxine HCl ER 150 MG 1 capsule with food Orally Once a day Active oxyBUTYnin Chloride ER 10 MG Oral for 30 Active OxyCONTIN 15 MG TAKE 1 TABLET BY MOUTH EVERY 12 HOURS Oral for 28 Active Simvastatin 20 MG 1 tablet in the evening Orally Once a day Active buPROPion HCl ER (XL) 300 MG 1 tablet in the morning Orally Once a day Active sulfaSALAzine 500 MG TAKE 2 TABLETS BY MOUTH TWICE DAILY Oral for 30 Active Levothyroxine Sodium 50 MCG 1 tablet Orally Once a day Active oxyCODONE HCl ER 10 MG 1 tablet Orally every 12 hrs Active Pregabalin 75 MG TAKE 1 CAPSULE BY MOUTH THREE TIMES DAILY Oral for 30 Active Baclofen 10 MG Oral for 30 Act bhavna Furosemide 20 MG 1 tablet Orally Once a day as needed Active Hydroxychloroquine Sulfate 200 MG Oral for 90 Not-Taking Omeprazole 20 MG Oral for 90 A ctive oxyCODONE HCl 20 MG 1 tablet as needed Orally every 6 hrs Active Cyclobenzaprine HCl 10 MG 1 tablet Orall y Three times a day Active Immunizations Vaccine Route Administration Date Status Comme nts Influenza Unknown 10/28/2023 Administered Problems Problem Type SNOMED Code ICD Code Onset Dates Problem Status W/U Status Risk Notes Problem 904060743 Colon cancer screening (Z12.11) Active confirmed Problem 080028609 Personal history of colonic polyps (Z86.010) Active confirmed Problem 28654789 Drug-induced constipation (K59.03) Active confirmed Problem 746009700 Gastroesophageal reflux disease, unspecified whether esophagitis present (K21.9) Active confirmed Plan Of Treatment Future Test Test Name Order Date COLONOSCOPY 11/04/2014 COLONOSCOPY 11/27/2023 Insurance Providers Payer Name Payer Address Payer Phone Subscriber Number Group Number Insured Name Patient Relationship to Insured Coverage Start Date Coverage End Date [facility] [address] [place] [phone] [id number] BEAR KRAUSE Self - patient is the insured Medical (General) History Medical History History ICD Code neuropathy type II diabetes hypertension anxiety/depression degenerative joint disease and spinal st enosis elevated cholesterol overactive bladder hypothyroidism Rheumatoid arthritis Colonoscopy 02/09, serrated adenoma, five -year followup Surgical History Surgery Date(Month/Year) arthroscopic knee, wrist, elbows surgery 2 on cervical spine, 1 thoracic spine, 1 lumbar spine Knee replacement surgery Hospitalization History Reason Date(Month/Year) Dental infection following extraction Cellulitis 12/20
--- OUTSIDE RECORDS SUMMARY | 2025-01-28 14:42 | XMS_ITS ---
Author Name [facility] Organization Unknown Encounters Encounter Type Encounter Reason Primary Diagnosis Location Date Inpatient Cellulitis and abscess of mouth [facility] 01/16/2022 Care Team Organization Name Specialty Phone Email Start Date End Da te [facility] Primary Care 01/16/2022 01/16/2022 [facility] 01/16/2022 06/15/2024
--- OUTSIDE RECORDS SUMMARY | 2025-01-28 14:42 | XMS_ITS ---
Author Organization [facility] Address [address] [place] [address] Care Team Providers Care Mechanical Engineering Advisor Name Role Phone Anabela CANTRELL, Cayla Primary Care Provider Getachew De Dios Jr [phone] REASON FOR VISIT screening,hx polyps Encounters Encounter Location Date Provider Diagnosis [facility] [address] [place], [place] [id number] 01/10/2024 Getachew Toscano Jr Encounter for screening colonoscopy Z12.11 and Personal history of colonic polyps Z86.010 Assessments Encounter Date Diagnosis (ICD Code) Assessment Notes Treatment Notes Treatment Clinical Notes Section Notes 01/10/2024 Encounter for screening colonoscopy (ICD-10 - Z12.11) 01/10/2024 Personal history of colonic polyps (ICD-10 - Z86.010) Plan Of Treatment No Information Progress Notes * BEAR KRAUSE MDOB: (64 yo F)Acc No.[id number]:01/10/2024 COLON WITH MAC Patient:?AMANDA KRAUSE Provider:?Getachew Toscano MD :1960???Age:63 Y???Sex:Female D ate:01/10/2024 Address:[address] [place], [place] [id number] Pcp:Cayla Peñaloza NP Subjective: * Chief Complaints: * ???1. Screening,hx polyps. * Medical History:? Objective: * Vitals:? Assessment: * Assessment: 1.?Encounter for screening c olonoscopy - Z12.11 (Primary)???2.?Personal history of colonic polyps - Z86.010??? Plan: * Treatment: * Procedure Codes:?92134 DIAGN OSTIC COLONOSCOPY * Preventive Medicine:? ??JACQUELINE Screening:?Colonoscopy?Was interval between colonoscopies three years or more??Yes,?Was last colonoscopy performed three or more years ago??Yes.? * * The named appointment provid er may or may not be the originator of this progress note, and it is not deemed complete until electronically signed by the appointment provider. Sign off status: Pending * Provider:?Getachew Toscano MD Date:?0 01/10/2024 Generated for Rehan sullivan/Wali/Kennysmitting on:?01/28/2025 02:42 PM EDT
--- OUTSIDE RECORDS SUMMARY | 2025-01-28 14:42 | XMS_ITS | Patient Health Record ---
Author Organization [facility] Address [address] [place] [address] Care Team Providers Care Police Clerk Name Role Phone Candice John Primary Care Provider Unavailabl e Aria Dodd Unavailable [phone] Jun Limon Unavailable [phone] Allergies Allergen (clinical drug ingredient) Drug/Non Drug Allergy documented on EMR Reaction Allergy Type Onset Date Status aripiprazole Abilify edema Drug Allergy Acti ve amoxicillin / clavulanate Augmentin rash Drug Allergy Active duloxetine Cymbalta edema Drug Allergy Active Penicillin yeast infection Drug Allergy Active Reason For Referral No Information Medications Medication SIG (Take, Route, Frequency, Duration) Notes Start Date End Date Status LORazepam Not-Taking Multivitamin Adult - as directed Orally Not-Taking Baclofen 10 MG 1 tablet Orally Thre e times a day Active Gabapentin Not-Takin g buPROPion HCl ER (XL) 300 MG 1 tablet in the morning Orally Once a day for 30 day(s) Active Cyclobenzaprine HCl Not-Taking oxyBUTYnin Chloride ER 10 MG 1 tablet Orally Once a day for 30 day(s) Active Extra-Depth Diabetic Shoes with 3 Pair Custom heat-molded multi-density innersoles Not-Taking Omeprazole 20 MG 1 capsule 30 minutes before morning meal Orally Once a day for 30 day(s) Active Wellbutrin SR Not-Ta sulfaSALAzine 500 MG TAKE 2 TABLETS BY M OUTH TWICE DAILY Oral for 30 Days Active Advair Diskus Not-Ta park Furosemide 20 MG as directed Orally O nce a day PRN Active Naproxen Not-Taking Simvastatin 20 MG 1 tablet in the even ing Orally Once a day Active Tretinoin (Emollient) Not-Taking Venlafaxine HCl ER 150 MG 1 tablet with food Orally Once a day Active Lisinopril Not-Takin g Neurontin 300 MG 1 capsule Orally Onc e a day for 30 day(s) Not-Taking Lyrica Active traZODone HCl 50 MG 1 tablet at bedtime as needed Orally Once a day for 30 day(s) PRN Active amLODIPine Besylate 2.5 MG 1 tablet Orally Once a day for 30 day(s) Not-Taking OxyCONTIN 20 MG 1 tablet Orally ever y 12 hrs Unknown Plaquenil 200 MG as directed Orally Active Suboxone Not-Taking oxyCODONE HCl 10 MG 1 tablet as needed Orally every 6 hrs Active Abilify 10 MG 1 tablet Orally Once a day Not-Taking OxyCONTIN 15 MG 1 tablet Orally ever y 12 hrs Active metFORMIN HCl 850 MG Orally Twice a day Not-Taking Diclofenac Sodium 1 % as directed Externally Not-Taking Meloxicam 15 MG 1 tablet Orally Once a day for 30 day(s) Not-Taking Extra Depth Orthopedic Shoes (1 Pair) with Customized Heat Molded Multidensity Innersoles (3 Pair) as directed Dx: NIDDM/Polyneuropathy (E11.42), Hammertoe Foot Deformity (M20.41,M20.42), Preulcerative Skin Lesion(s) (L85.1 10/11/2020 Not-Taking Apixaban 5 MG as directed Orally Not-Taking Stool Softener 100 MG 1 capsule as neede d Orally Once a day for 30 day(s) Not-Taking Eliquis 5 MG as directed Orally Not-Taking Extra Depth Orthopedic Shoes (1 Pair) with Customized Heat Molded Multidensity Innersoles (3 Pair) as directed Dx: NIDDM/Polyneuropathy (E11.42), Hammertoe Foot Deformity (M20.41,M20.42), Preulcerative Skin Lesion(s) (L85.1 Active Percocet 10-325 MG 1 tablet as needed Orally TID Not-Taking Nystatin Not-Taking Immunizations Vaccine Route Administration Date Status Comme nts COVID-19 Pfizer BioNTech Vaccine Unknown 02/03/2021 Adm inistered 1st 01/13/21 Influenza Unknown 08/30/2020 Administered Influenza Unknown 06/28/2022 Administered Social History Tobacco Use: Social History Observation Description Date Details (start date - stop date) Current Smoker NA - NA Tobacco Use/Smoking Question Answer Notes Are you a: current smoker How many cigarettes a day do you smoke? 11- Alcohol Screen Question Answer Notes Did you have a drink containing alcohol in the p ast year? Yes Points 0 Interpretation Negative Tobacco use other than smoking: Question Answer Notes Are you an other tobacco user? No Problems Problem Type SNOMED Code ICD Code Onset Dates Problem Status W/U Status Risk Notes Problem Acquired hammer toe of right foot (9825889862460115 ) Other hammer toe(s) (acquired), right foot (M20.41) Active confirmed Problem Acquired hammer toe of left foot (1588570030302011 ) Other hammer toe(s) (acquired), left foot (M20.42) Active confirmed Problem Polyneuropathy due to type 2 diabetes mellitus (310603300) Type 2 diabetes mellitus with diabetic polyneuropathy (E11.42) Active confirmed Problem Chronic ulcer of foot (454698222) Non-pressure chronic ulcer of other part of left foot with fat layer exposed (L97.522) Active confirmed Problem 36624381 Unsteady gait (R26.81) Active confirmed Problem 15088590 Smoker (F17.200) Active confirmed Problem 486074497 Charcot's joint of right foot (M14.671) Active confirmed Problem Localized, primary osteoarthritis of the ankle and/or foot (202176557) Arthritis of joint of lesser toe, left (M19.072) Active confirmed Problem Localized, primary osteoarthritis of the ankle and/or foot (393459937) Arthritis of joint of lesser toe, right (M19.071) Active confirmed Vital Signs Height 5ft 3in in 02/20/2024 Weight 175 lbs 02/20/2024 BMI 31.00 kg/m2 02/20/2024 Procedures Procedure Date Ordered Date Performed Result Body Sit e 38036-RPQQHYT NAIL, 6 OR MORE 02/20/2024 N/A 88931-Xxoy Destruction, 1-14 02/20/2024 N/A 05198-DFOJ SKIN LESIONS, OVER 4 02/20/2024 N/A Encounters Encounter Location Date Provider Diagnosis [facility] [address] [place] [address] 02/20/2024 Aria Black Other hammer toe(s) (acquired), right foot M20.41 ; Unsteady gait R26.81 ; Type 2 diabetes mellitus with diabetic polyneuropathy E11.42 ; Other hammer toe(s) (acquired), left foot M20.42 ; Verruca pedis B07.0 ; Left foot pain M79.672 ; Onychomycosis B35.1 ; Diabetic Charcot's foot E11.610 and Charcot's joint of right foot M14.[address] [facility] [address] [address] 04/22/2024 Jun Limon [facility] [address] [address] 06/08/2024 Aria Dodd Assessments Encounter Date Diagnosis (ICD Code) Assessment Notes Treatment Notes Treatment Clinical Notes Section Notes 02/20/2024 Other hammer toe(s) (acquired), right foot (ICD-10 - M20.41) Patient Educated with: DIABETIC FOOT CARE INSTRUCTIONS. pdf (DIABETIC FOOT CARE INSTRUCTIONS. pdf) 02/20/2024 Unsteady gait (ICD-10 - R26.81) 02/20/2024 Type 2 diabetes mellitus with diabetic polyneuropathy (ICD-10 - E11.42) 02/20/2024 Other hammer toe(s) (acquired), left foot (ICD-10 - M20.42) 02/20/2024 Verruca pedis (ICD-10 - B07.0) 02/20/2024 Left foot pain (ICD-10 - M79.672) 02/20/2024 Onychomycosis (ICD-10 - B35.1) 02/20/2024 Diabetic Charcot's foot (ICD-10 - E11.610) 02/20/2024 Charcot's joint of right foot (ICD-10 - M14.671) Plan Of Treatment Pending Test Test Name Order Date X ray : Foot, right 3V 09/22/2013 95086-WGNMFJG NAIL, 6 OR MORE 01/26/2014 77089-JYVYQFA NAIL, 6 OR MORE 05/24/2015 07514-JWIVUXB NAIL, 6 OR MORE 04/29/2013 71900-BOZYZXV NAIL, 6 OR MORE 07/14/2013 45994-DRPEWPO NAIL, 6 OR MORE 06/10/2015 45041-KGUKHLA NAIL, 6 OR MORE 08/02/2015 08226-HHLFPCY NAIL, 6 OR MORE 10/11/2020 44801-HGWUBDV NAIL, 6 OR MORE 04/11/2021 73093-IKPUCUA NAIL, 6 OR MORE 07/18/2023 35111-LGYMQGN NAIL, 6 OR MORE 11/07/2023 64454-HBBTJOO NAIL, 6 OR MORE 02/20/2024 35835-Wzyf Destruction, 1-14 02/20/2024 69386-Ckex Destruction, 1-14 07/18/2023 29291-Qtky Destruction, 1-14 11/07/2023 10572-Vboq Destruction, 1-14 10/11/2020 36646-LSLG SKIN LESIONS, OVER 4 10/11/20 20 17295-ZMDM SKIN LESIONS, OVER 4 02/20/20 24 42272-NUWT SKIN LESIONS, OVER 4 11/07/19 24 23921-PJLZ SKIN LESIONS, OVER 4 04/11/20 21 56287-XZHK SKIN LESIONS, OVER 4 07/18/20 23 97086-OCTA SKIN LESIONS, 2 TO 4 08/02/20 15 02957-JODR SKIN LESIONS, 2 TO 4 06/10/20 15 88158-NJAC SKIN LESIONS, 2 TO 4 04/29/20 13 47993-ZTMS SKIN LESIONS, 2 TO 4 07/14/20 13 62721-HUCI SKIN LESIONS, 2 TO 4 05/24/20 15 97547-KEJO SKIN LESIONS, 2 TO 4 01/27/20 14 15732- Removal of Foreign Body, Subcut 1 50,K0035-OGC TENDON SHEATH/LIGAMENT 0 07/01/201507638,F3273-ZTL TENDON SHEATH/LIGAMENT 0 07/17/201321079,B0408-VFK TENDON SHEATH/LIGAMENT 1 50,Q2983-LZW TENDON SHEATH/LIGAMENT 1 Next Appt Details Provider Name:Aria Dodd , 04/19/2025 02:15:00 PM, [address] [place] [address], [phone], Insurance Providers Payer Name Payer Address Payer Phone Subscriber Number Group Number Insured Name Patient Relationship to Insured Coverage Start Date Coverage End Date [employer] [place] [employer] [address] [place] [address] [id number] Evelyne Claudio Self - patient is the insured Medical (General) History Medical History History ICD Code sciatica mumps measles joint implants/screws hypercholesterolemia headaches/migraines glaucoma depression chicken pox back, hip, knee pain anxiety hypertension Arthritis - Degenerative Charcot type II diabetes rheumatoid arthritis Pulmonary embolism thyroid Reflux ( GERD) Hyperlipidemia Neuropathy Fibromyalgia Macular degeneration Poor circulation Osteomylitis Surgical History Surgery Date(Month/Year) arm 2005 carpal tunnel surgery 2004 cyst removal tendon release-elbows knee replacememtn- left oral surgery bladder suspension inguinal hernia repair back surgery pilonidal cyst excision elbow sx wrist surgery spine surgery Thumb Surgery Infection removal mouth 12/2021 cervical spine 03/2022 right knee replacement 08/2022 Cervical spine surgery 02/2023 cyst removal - lower lumber 05/2023 Hospitalization History Reason Date(Month/Year) pneumonia sm blood clot 07/09- [facility] - Infection removal [place] th-shaved bone 12/2021 Cervical spine surgery - [facility] 03/2022 [facility] - right knee replacement 08/2022 [facility] [place] 11/2022 [facility] - Cervical spine surgery 02/2023
--- OUTSIDE RECORDS SUMMARY | 2025-01-28 14:42 | XMS_ITS ---
Author Organization [facility] Address [address] [place] [address] Care Team Providers Care Forest Ecology Professor Name Role Phone Candice John Primary Care Provider Aria Day Unavailable [phone] Jun Limon Unavailable [phone] REASON FOR VISIT [employer] Encounters Encounter Location Date Provider Diagnosis [address] [address] 04/22/2024 Jun Limon Plan Of Treatment Next Appt Details Provider Name:Aria Arnold Yousif , 04/19/2025 02:15:00 PM, [address] [place], [address], Progress Notes * Evelyne CLAUDIO MDOB: (63 yo F)Acc No.[id number]:04/22/2024 Patient:?Felicity Cluadio :1960???Age:63 Y???Sex:Female Address: [place] [address] * true * Date:? Generated for Printi laurie/Wali/eTransmitting on:?01/28/2025 02:42 PM EDT
--- OUTSIDE RECORDS SUMMARY | 2025-01-28 14:42 | XMS_ITS | Clinical Summary ---
Author Organization [facility] Address [address] [place] [address] Care Team Providers Care Paper Sorter And Counter Name Role Phone Cayla Peñaloza NP Primary Care Provider Social History Tobacco Use Types Packs/Day Years Used Date Smoking Tobacco: Never Assessed Sex and Gender Information Value Date Recorded Sex Assigned at Not on file Gender Identity Not on file Sexual Orientation Not on file Job Start Date Occupation Industry Not on file Not on file Not on file Plan of Treatment Health Maintenance Due Date Last Done Comments Hepatitis C Screening 1960 COVID-19 Vaccine (#1) 03/28/1963 Pneumococcal Vaccine (1 of 2 - PCV) 1968 Depression Screening 1974 Preventative Health Evaluation 1980 DTap / Tdap / Td (1 - Tdap) 1981 Cervical Cancer Screening (P ap Smear) 1983 Colon Cancer Screening (Colonoscopy) 2007 Breast Cancer Screening (Mammogram) 2012 Shingrix-Zoster Vaccine (1 of 2) 2012 Influenza Vaccine (#1) 2024 RSV Adult > 60+ Yrs or Pregn ant (1 - 1-dose 75+ series) 2037 Hepatitis B Vaccines Aged Out No long er eligible based on patient's age to complete this topic RSV Ped < 20 months Aged Out No longe r eligible based on patient's age to complete this topic Care Teams Paper Sorter And Counter Relationship Specialty Start Date End Date Cayla Peñaloza, [facility] [address] [facility] [id number] PCP - General Family Medicine 03/20/19
--- OUTSIDE RECORDS SUMMARY | 2025-01-28 14:42 | XMS_ITS | Clinical Summary ---
Author Organization 175 [facility] Address [address] [place] [address] Phone Care Team Providers Care Credit Product Analyst Name Role Phone Candice John FAWN Primary Care Provider [phone] Allergies Active Allergy Reactions Criticality Noted Date Comments Aripiprazole Medium 09/03/2024 EDEMA Duloxetine Medium 09/03/2024 EDEMA Medications acetaminophen (TYLENOL) 325 mg tablet Take 2 Tablets by mouth. Active albuterol HFA (PROAIR HFA ; PROVENTIL HFA ; VENTOLIN HFA) 90 mcg/actuation inhaler 3 Active amLODIPine (NORVASC) 2.5 mg tablet Take 1 Tablet by mouth daily. Active baclofen (LIORESAL) 10 mg tablet 1 Active chlorhexidine (PERIDEX) 0.12 % solution RINSE WITH 15ML FOR 30 SECONDS AND SPIT, USE TWICE DAILY IN THE MORNING AND EVENING AFTER BRUSHING AND FLOSSING . 3 Active cholecalcifero l (VITAMIN D-3) 25 mcg (1,000 unit) tablet Take 1 Tablet by mouth. Active docusate sodium (COLACE) 100 mg capsule TAKE 1 CAPSULE BY MOUTH TWICE DAILY 2 Active blood sugar diagnostic (FreeStyle Lite Strips) test strip USE 1 STRIP TO CHECK GLUCOSE TWICE DAILY 1 Active hydroxychloroq uine (PLAQUENIL) 200 mg tablet 1 Active magnesium oxide (MAG-OX) 400 mg (241.3 elemental magnesium) tablet TAKE 1 TABLET BY MOUTH TWICE DAILY AFTER MEALS 3 Active magnesium hydroxide (MAGNESIA ORAL) Take by mouth. Activ e nystatin (MYCOSTATIN) cream 3 Active omeprazole (PriLOSEC) [address] capsule 1 Active oxyBUTYnin XL (DITROPAN-XL) 10 mg 24 hr tablet Take 10 mg by mouth 2 times daily. Active oxyCODONE (ROXICODONE) 10 mg immediate release tablet 1 PO Q 4H PRN moderate pain, max of 5 tablets per day 4 Active oxyCODONE (OxyCONTIN) 15 mg 12 hr abuse-deterren t tablet 3 Active pregabalin (LYRICA) 75 mg capsule Take 1 Capsule by mouth 2 times daily for 30 days. 2 Active simvastatin (ZOCOR) 20 mg tablet Take 20 mg by mouth at bedtime. Active traZODone (DESYREL) 50 mg tablet if needed. 4 Active triamcinolone acetonide (KENALOG-40) 40 mg/mL injection 3 Active venlafaxine XR (EFFEXOR-XR) 150 mg 24 hr capsule TAKE ONE CAPSULE BY MOUTH ONCE DAILY 7 Active furosemide (LASIX) 20 mg tablet Take 40 mg by mouth daily. Active clotrimazole (MYCELEX) 10 mg shoaib Take 10 Lozenges by mouth 5 times daily. Active buPROPion XL (WELLBUTRIN XL) 300 mg 24 hr tablet Take 1 Tab by mouth every morning. 7 Active levothyroxine (SYNTHROID, LEVOTHROID) 88 mcg tablet Take 88 mcg by mouth daily. Active walker (Ultra-Light Rollator) misc 1 Product 1 (one) time each day if needed (as needed to ambulate). 1 each 4 025 Active oxyCODONE (OXY-IR) 5 mg immediate release capsule Take 1-2 capsules (5-10 mg total) by mouth every 4 (four) hours if needed for severe pain. Max Daily Amount: 60 mg 40 capsule 4 Active blood-glucose meter kit See administration instructions. 7 Active hydrOXYzine HCL (ATARAX) 25 mg tablet Take 1 tablet (25 mg total) by mouth 3 (three) times a day if needed. 4 Active ibuprofen (ADVIL,MOTRIN) 600 mg tablet Take 1 tablet (600 mg total) by mouth every 8 hours as needed. 4 Active freestyle 28 gauge lancets 1 each 2 times daily. 7 Active multivitamin tablet Take 1 tablet by mouth 1 (one) time each day. Active sulfaSALAzine (AZULFIDINE) 500 mg tablet 5 Active Active Problems Problem Noted Date Diagnosed Date Degenerative arthritis of me tacarpophalangeal joint of index finger of left hand 11/17/2024 Wound dehiscence, surgical 09/22/2024 Lumbar stenosis with neurogenic claudication Diabetes mellitus, type 2 09/03/2024 Pure hypercholesterolemia 09/03/2024 Postoperative wound infection 09/01/2024 Wound infection after surgery 08/12/2024 Overview (08/31/2024): Last Assessment & Plan: Patient is 5 weeks s/p L5-S1 decompression, POD #28 s/p reexploration L5-S1 and repair of CSF leak. She seems to be doing well on the ampicillin, wound has no surrounding erythema, then yellow serous looking drainage, seems to be decreasing slowly. She is dealing with some other medical issues at the same time, saw her PCP last week, is getting referral to cardiology Dr. Taylor at [facility]. She has history of lymphedema, her right >left leg swelling is somewhat worse, she cannot wear her lymphedema suit that was prescribed by Dr. Pires because of her back issue. She is complaining of left leg numbness, pain in the lower lateral selby/calf that radiates up the leg, at times the leg seems to go into spasm/stiff. She has had a couple falls the last few days, on Saturday she fell out of her chair, has some bruising on her left lower torso. Yesterday she was putting a towel on her head when she got out of the shower and fell, hitting her right forehead on the wastebasket, landing on her right shoulder, which is sore today. She has history of falls, neuropathy in the feet. She feels like she drags the right leg and it is more swollen. Patient is mostly in her wheelchair. Ms. Claudio seems to be responding better to the ampicillin then she did to the Bactrim, the wound is looking better, small amount of serous drainage seems to be lessening. We talked about the importance of good nutrition, protein for wound healing. Patient is a smoker which slows down wound healing. I put a call into her PCP office, they state the cardiology referral is in the computer, they will send the information over so patient can schedule an appointment. I talked to them about my concern for her lower extremity swelling, history of lymphedema and neuropathy, she will discuss with Heather John NP. I also asked patient to call Dr. Pires to see if he has any additional recommendations for her lymphedema and lower extremity swelling. All questions answered. Asked her to call with any concerns or questions. Assessment & Plan (09/15/2024 12:29 PM EST): Patient is now 12 days s/p lumbar exploration and wound washout, 7 weeks s/p L5- S1 decompression, 6 weeks s/p reexploration L5-S1 and repair of CSF leak. She saw Dr. Nicole (infectious disease) on 09/08/2024, wound culture + Enterococcus faecalis. Patient had been on ampicillin 500 mg every 6, Dr. Nicole changed to amoxicillin 1000 mg 3 times daily x 2-week course. She also referred patient to lymphedema clinic. + smoker. Patient comes in for postop wound check, feels tired but overall sees improvement in her functioning, states she was able to reach overhead to wash her hair in the shower for example. She got a rollator, on Saturday tried going outside for a little walk, states she did notice she had increased pain however that night. She still feels like she has to hunch forward, tries to stand up straight. She sees improvement in her lumbar incision, there is been decreasing drainage. She denies any sweats chills, fevers. She still notes difficulty lifting right >left leg, feels unsteady with walking. Has bilateral R >L lower extremity swelling, has small abrasions scattered in the lower extremities, states the other day she had a scratching attack. She feels the episodes of numbness in the left leg is improving. Ms. Claudio seems to be having decreased wound drainage, wound is healing, there is 1 small opening after alon were removed today in the mid incision. We left the sutures in, she will come back next week to get those removed. If she continues to have unsteady gait, iliopsoas and quad weakness (mostly right leg), I will again discuss her T12-L1 stenosis with Dr. Herring, she was holding off on considering any additional surgery till this lumbar incision heals. It looks like we are going in the right direction for wound healing, will continue to monitor closely. Patient will call with any concerns or questions, all questions answered on today's visit. Assessment & Plan (09/01/2024 4:40 PM EST): Patient is 6 weeks s/p L5-S1 decompression, 5 weeks s/p reexploration L5-S1 and repair of CSF leak. She does feel the wound drainage is slowing down, is on her last day of ampicillin, has not had any negative side effects or allergy to the ampicillin. She is a bit teary again today, states she is still having difficulty getting around, pain in her legs, weakness/balance issues, swelling in the legs. Compared to preop she has seen improvement in the left >right buttock pain, preop she felt like someone was punching her in the buttock. She is not sleeping well, has numbness tingling in the distal left leg. She is on chronic OxyContin and oxycodone for her generalized pain, has lymphedema with right >left leg swelling. She has not had any fevers. VNA has been coming weekly, her changes the dressings 1- 2 times a day. She has PT and OT coming to her home as well. Patient states she has not been smoking, has been trying to increase her protein intake, is trying to stay active and walk throughout the day, usually uses a walker, is able to get around with a cane as well but feels unsteady. She feels like she drags her right leg. Ms. Claudio does seem to have improvement in wound healing, decreased drainage with the ampicillin, today is day 10/10 of antibiotics. We did order MRI lumbar spine with and without contrast since she has had prolonged wound drainage, leg symptoms and weakness, which likely is multifactorial, but we will rule out nerve root compression. I will call MRI and see if they can do posada sagittal view of the spine. I called Dr. Taylor's office, they have not yet received referral from her PCP, they gave me their fax number, I will call with update. Patient also plans to call Dr. Pires from vascular surgery for follow-up appointment with him as well. We scheduled her for wound care evaluation, first available appointment is end of the month on the , if her wound is healed by then we can cancel the appointment. ADDENDUM 09/01/24 at 4:30 pm: I reviewed patient's postop lumbar MRI with Dr. Herring, patient has fairly large fluid collection still at surgery level L5-S1 and laminectomy bed and subcutaneous tissues, small amount of epidural fluid collection. Also seen on prior imaging, patient has stenosis T12-L1, left facet disease, given patient's proximal leg weakness, Dr. Herring may at a future date offer T12-L1 decompression, once this lumbar incision has healed and there is no infection issues. I discussed with patient, let her know Dr. Herring would like to add her to the schedule for wound washout, patient understands and agrees with plan. I will send Hibiclens body wash to her pharmacy. Peripheral polyneuropathy 10/24/2023 Synovial cyst of lumbar spine 07/09/2023 Overview (08/31/2024): Last Assessment & Plan: Patient is s/p right L5-S1 decompression with resection of synovial cyst 06/27/2023, almost 1 year ago. She had been doing well until about 3 months ago when she started getting severe pain in the low left buttock and tailbone, feels like someone is punching her in the buttock. She gets pain in the posterior lateral leg to the foot. Yesterday had a few twinges of pain in the right buttock. She is not sleeping well, states she is getting up every 2 hours because of the pain. When she goes to stand up she cannot straighten up all the way due to the severe pain radiating down her left leg. She is walking hunched forward. She also is dealing with swelling in the right leg, it sounds like she has lymphedema and venous insufficiency, she has duskiness of the toes, states the leg is very heavy and hard to lift. She also had prior C- spine and T-spine surgery, her neck has been doing pretty well. Patient states unfortunately due to her back and leg issues, especially the right leg, she is mostly in the house all summer, her sister has a pool, she does feel better when she tries to exercise in the water. Ms. Claudio has severe left buttock and posterior lateral leg pain, will need updated MRI lumbar spine with and without contrast. She also had 3 falls this year, states she fell on her tailbone and now has severe pain in the tailbone, we will check an x-ray. Official report pending, she has multilevel lumbar DDD. She also has pain over the right SI joint, she may also benefit from right SI joint cortisone injection. We talked about her going for aquatic PT since she does feel better trying to walk and exercise in the water, I asked her to first check with her vascular surgeon to make sure would be safe to go in the pool without risk of infection to the lower extremities. I will review her imaging with Dr. Herring once completed. All questions answered. Low back pain with sciatica 05/16/2023 Overview (08/31/2024): Last Assessment & Plan: Patient is 2 weeks s/p L5-S1 decompression, POD #9 s/p reexploration L5-S1 and repair of CSF leak. Patient notes improvement in her severe left leg pain since surgery. She gets some jolts of pain in the foot and distal left leg, has numbness in the left leg. She has been having serosanguineous wound drainage since surgery, no obvious sign of CSF leak, patient did note a headache last night. No fevers, sweats chills. She is trying to stay active and walking, uses a cane, came up for the appointment in her wheelchair but left it in the waiting room. She is on chronic oxycodone. Ms. Claudio overall is doing well, has some wound swelling, slight erythema, without fever. No sign of purulent drainage, her dressing does have serosanguineous drainage that was placed earlier this morning. Dr. Herring came in to check patient today as well. I sent prescription for Bactrim DS, possible early wound infection versus inflammatory changes. At this time no concern for CSF leak. I placed pressure dressing, and patient will follow-up next week for another wound check. I asked her to message me if she has any worsening symptoms. I asked her to either eat yogurt daily or take a probiotic while on antibiotics. All questions answered. Assessment & Plan (10/30/2024 9:34 PM EST): Patient has extensive back surgery history, most recently is just over 3 months s/p L5-S1 decompression, had postop CSF leak that needed repair about 1 week after, then had slow wound healing, infection and persistent wound drainage and required referral to ID and wound clinic. (wound culture + Enterococcus faecalis. Patient had been on ampicillin) Patient states she has not had wound drainage for quite some time now, the wound has healed, was discharged from wound clinic a few weeks ago. Her main concern at this time is that she has constant low back pain, pain in the left buttock down the posterior thigh and lateral calf, pain into the medial foot. She states the whole left leg feels numb and weak. She has difficulty finding any comfortable positions, is not sleeping well. The right leg sometimes will go numb, she gets spasms at times in both legs. She had home physical therapy initially but states that stopped about a month ago, has continued to do some exercises at home on her own. She uses a rollator to walk at home, has been using someone else's and requesting a prescription for a walker. Ms. Claudio has residual left leg pain, numbness >right leg. On exam she seems to have improvement since the last time I saw her, her legs are strong to resistance bilaterally, improved compared to prior exam. She came up in a wheelchair, has a cane with her, tends to hunch forward. Her wound has healed, no sign for infection. She does not seem to have significant pain over the left SI joint. I opened up her lumbar spine MRI from August 2024, reviewed it with the patient, as well as Dr. Herring while patient was in the office. At this point she does not seem to have any significant stenosis, she likely will need more time for the nerves to try to heal. The stenosis noted on prior imaging T12-L1 is not severe, Dr. Herring is not recommending any thoracic or lumbar surgery at this time. I went back and read her preop office note, she was describing very similar symptoms preop. I explained numbness can take months to improve, however she could have some permanent numbness from preop nerve root damage. We will give this more time, try conservative treatment options like physical therapy to help with posture and balance training/core strengthening, encouraged her to walk is much as possible, she tends to sit most of the day. I also gave her name for acupuncturists to try. She can follow-up with Dr. Herring in a couple months, call with any concerns or questions prior to that time. All questions answered. Cervical cord compression with myelopathy 2022 Overview (08/31/2024): Last Assessment & Plan: Ms. Claudio is currently in physical therapy for her neck and starting weight training. She has a little better mobility but is reporting increased neck pain over the last few weeks with recurrent tingling along the left trapezius, shoulder and anterior chest. She becomes tearful during the exam wearing that something is wrong and she has the same problem again. She stopped wearing her external bone stimulator a week and a half ago because it felt too heavy and was causing neck pain. Cervical rotation is 45 degrees bilaterally, strength 5/5 with no myelopathic findings. I am going to send her for x-rays now to assess for any changes. Depression with anxiety 11/22/2022 Cervical stenosis of spinal canal 01/31/2022 Overview (08/31/2024): Last Assessment & Plan: Ms. Claudio is here for her second postop visit since a C5-6 ACDF with plating on 04/26/2022. This was done for cervical spondylosis with cord compression and some numbness and alternating arms. Since surgery, she states that her neck pain is better however her arm numbness is worse and occurs with even just slight turning of her head from one side to the other. She gets some shocks in the left upper arm and has to sleep in the recliner. She has been on gabapentin 900 mg 3 times daily without benefit. She and her sister report thinking that her right eye was slightly droopy. She also notes that she had COVID 1 month ago in the early postop period. Her most recent test was negative but she has had cold sweats and a stomachache for the past week. On exam, PERRL, EOMI, there is no ptosis and no anhydrosis of her right face. Her incision is well-healed, cervical rotation is at least 45 degrees but she resists doing that due to the numb symptoms. Strength is 5/5, gait is steady. Review of the AP/lateral flexion/extension x-rays from today show the graft plate and screws to be in good position with no instability. There is a mild anterolisthesis at C4-5 which does not reduce in extension. I believe the residual numbness will improve with more time since the decompression of her spinal cord. I recommended switching to Lyrica as she is failed to improve from gabapentin and will place the prescription. We will plan on seeing her back at 1 year from surgery with final x-rays but she is certainly welcome to contact us in the interim if there are any concerns. 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 Nonpharmacologic and pharmacologic options briefly discussed. Prescribed hydroxyzine 25 mg PRN Charcot's joint of foot 10/17/2017 Entrapment of right ulnar nerve at elbow 017 Neck pain 10/17/2017 Neuropathy 10/17/2017 Overactive bladder 10/17/2017 Overview (08/31/2024): Last Assessment & Plan: Supportive measures discussed, taking oxybutinin Psychophysiological insomnia 10/17/2017 Right foot pain 10/17/2017 Type II diabetes mellitus with neuropathic arthr opathy 10/17/2017 Overview (08/31/2024): Last Assessment & Plan: Labs as ordered for treatment evaluation, she notes very sedentary lifestyle Status post total left knee replacement 10/17/20 17 Depression, major, recurrent, in partial remissi on 06/02/2015 Major depressive disorder, r ecurrent episode, in partial remission 06/18/2013 Opioid type dependence 05/21/2013 Overview (08/31/2024): IMO update Alcohol abuse 04/03/2012 Back pain 04/03/2012 DJD (degenerative joint disease) of knee 012 Hypercholesteremia 04/03/2012 Hypertension 04/03/2012 Obesity 04/03/2012 Tobacco dependence 04/03/2012 Encounters Date Type Department Care Team Description 12/24/2024 Telephone Neurosurgery [facility] [address] [facility] [address] [place] [address] Lakesha Perkins [place] 11/16/2024 11:45 AM EST Office Visit Orthopedic Surgery [facility] [address] [facility] [address] [place] [address] Yu Hernández MD Bilateral hand pain (Primary Dx); Degenerative arthritis of metacarpophalangeal joint of index finger of left hand; Seropositive rheumatoid arthritis of multiple joints (CMS/HCC) 10/30/2024 11:15 AM EST Office Visit [facility] [address] [facility] [address] [place] [address] Najma Fay PA Chronic bilateral low back pain with bilateral sciatica (Primary Dx) from Last 3 Months Immunizations Name Administration Dates Next Due Influenza trivalent, 0.5mL, preservative free (Fluarix; FluLaval; Fluzone) ages 6mo and older (Afluria) 3 years and older 08/19/2024,10/28/2023,08/02/2023,08/07,08/30/2020,07/26/2020,07/21/2019 ,07/29/2018,07/19/2017,10/12/2016,06/29,06/30/2013 Influenza trivalent, with pr eservative (Fluzone; Afluria) 6mo and older 07/25/2015,08/10/2014,08/14/2012 Pneumococcal conjugate 20 va lent (Prevnar 20, PCV 20) 2mo and older 05/12/2015 Pneumococcal polysaccharide 23 valent (Pneumovax 23) 2yo and older 07/19/2017 TD, Adsorbed, Preservative Free 03/17/2016,01/24 Tdap Tetanus diptheria acell ular pertussis (Boostrix; Adacel) 7yo and older 01/12/2024 Surgical History Surgery Date Site/Laterality Comments HERNIA REPAIR AGE 6 MO-5 YRS REDUCIBLE TOTAL KNEE ARTHROPLASTY Left for RA OTHER SURGICAL HISTORY Right Patient reports many surgeries on the right arm x8, multiple scars noted BACK SURGERY T11-12 posterior decompression for thoracic myelopathy, Dr. Roche 04/10/2016 NECK SURGERY 03/21/2023 removal of the plate at C5-6 with new ACDF with plating at C4-5, Dr. Herring NECK SURGERY 03/30/2022 C5-6 ACDF wtih plating, BACK SURGERY 07/28/2024 reexploration L5-S1 and repair of CSF leak, Dr. Herring BACK SURGERY 07/21/2024 L5-S1 decompression, Dr. Herring BACK SURGERY 09/03/2024 Wound washout, Dr. Herring JOINT REPLACEMENT Bilateral BACK SURGERY 06/27/2023 right L5-S1 decompression with resection of synovial cyst, Dr. Herring Medical History Medical History Date Comments Diabetes mellitus type 2, co ntrolled, with complications (CMS/[facility]) DX:Diabetes mellitus type 2, controlled, with complications ([facility]) Esophageal reflux DX:Esophageal reflux Anxiety state DX:Anxiety state Depressive disorder DX:Depressiv e disorder Hyperlipidemia DX:Hyperlipidemi a Essential hypertension DX:Essent ial hypertension Rheumatoid arthritis (CMS/HCC) D X:Rheumatoid arthritis (HCC); COMMENT: Severe in the right knee; also right foot, hands Osteoarthritis DX:Osteoarthriti s; COMMENT: diffuse Fibromyalgia DX:Fibromyalgia Hypothyroidism DX:Hypothyroidis m Back pain Lumbar surgical wound fluid collection Wound healing, delayed Family History Medical History Relation Name Comments Diabetes Brother 1 Heart failure Brother 1 Heart failure Brother 2 Diabetes Father Heart failure Father Heart failure Mother Diabetes Sister Relation Name Status Comments Brother 1 Brother 2 Father Mother Sister Social History Tobacco Use Types Packs/Day Years Used Date Smoking Tobacco: Every Day Cigarettes 1.5 44.3 Started: 1980 Passive Smoke Exposure: Past Smokeless Tobacco: Never Tobacco Cessation:Ready to Q uit: Not Asked; Counseling Given: Not Answered Alcohol Use Standard Drinks/Week Comments Yes 6 (1 standard drink = 0.6 oz pur e alcohol) Comments Unknown Sex and Gender Information Value Date Recorded Sex Assigned at Not on file Legal Sex Female 1:18 PM EST Gender Identity Not on file Sexual Orientation Not on file Obstetrics History Last Filed Vital Signs Vital Sign Reading Time Taken Comments Blood Pressure 116/52 10/08/2024 11:34 AM EST Pulse 77 10/08/2024 11:34 AM EST Temperature 36.4 ??C (97.5 ??F) 10/08/2024 11:[address] Respiratory Rate 18 10/08/2024 11:34 AM EST Oxygen Saturation 98% 10/08/2024 11:34 AM EST Inhaled Oxygen Concentration - - Weight 85.3 kg (188 lb) 11/16/2024 11:51 AM EST Height 157.5 cm (5' 2 ) 11/16/2024 11:51 AM EST Body Mass Index 34.39 11/16/2024 11:51 AM EST Plan of Treatment Upcoming Encounters Date Type Department Care Team (Late st Contact Info) Description 01/29/2025 1:15 PM EDT Office Visit Orthopedic Surgery - [place] [address] [facility] [address] [place] [address] Laurel Haynes PA [address] [facility] [address] [place] [id number] Health Maintenance Due Date Last Done Comments Breast Cancer Screening 1962 Diabetes: Annual Foot Exam 1972 Diabetes: Annual Retina Eye Exam 1972 Hepatitis A Vaccines (1 of 2 - Risk 2-dose series) 1981 Cervical Cancer Screening: Pap Smear 1983 Zoster Vaccines (1 of 2) 2012 Colorectal Cancer Screening: Colonoscopy 09/25/2022 HIV Screening 09/25/2022 Hepatitis C Screening 09/25/2022 Lung Cancer Screening (Low Dose CT) 09/25/2022 Medicare Annual Wellness Visit 09/25/2022 Social Influencers of Health Screening 09/25/2022 RSV Immunization Adult Patients (1 - Risk 60-74 years 1-dose series) 2022 COVID-19 Vaccine ( season) 2024 03/14/2022, 08/23/2021, 02/03/2021, Additional history exists Diabetes: Annual Urine Albumin-Creatinine Ratio (uACR) 08/10/2024 11/29/2022, 07/21/2019, 07/29/2018 Diabetes: Blood Sugar Control Test (HGBA1C) 08/10/2024 12/04/2023 Diabetes: Annual GFR (Glomerular Filtration Rate) 12/04/2024 12/04/2023, 12/04/2023, 02/18/2023, Additional history exists Hypertension/CHF/CAD Annual BMP Blood Test 12/04/2024 12/04/2023, 12/04/2023, 02/18/2023, Additional history exists Depression Screening 09/22/2025 09/22/2024 Cholesterol Screening (Lipid Panel) 12/04/2028 12/04/2023 DTaP,Tdap,and Td Vaccines (2 - Td or Tdap) 01/11/2034 01/12/2024, 03/17/2016, 01/24/2006 Pneumococcal Vaccine: 50+ Years Completed 07/19/2017, 05/12/2015 Pneumococcal Vaccine: Pediatrics (0 to 5 Years) and At-Risk Patients (6 to 64 Years) Completed 07/19/2017, 05/12/2015 Influenza Vaccine Completed 08/19/2024, , 08/02/2023, Additional history exists HIB Vaccines Aged Out No longer eligi ble based on patient's age to complete this topic HPV Vaccines Aged Out No longer eligi ble based on patient's age to complete this topic Hepatitis B Vaccines Aged Out No long er eligible based on patient's age to complete this topic IPV Vaccines Aged Out No longer eligi ble based on patient's age to complete this topic MMR Vaccines Aged Out No longer eligi ble based on patient's age to complete this topic Meningococcal ACWY Vaccine Aged Out N o longer eligible based on patient's age to complete this topic Meningococcal B Vacine Aged Out No lo nger eligible based on patient's age to complete this topic RSV Immunization Patients Under 20 months Aged Out No longer eligible based on patient's age to complete this topic Varicella Vaccines Aged Out No longer eligible based on patient's age to complete this topic Goals Goal Patient Goal Type Associated Problems Recent Progress Patient-Stated? Author Wound volume breakdown reduced by X% by week 4 Care Plan Impaired Tissue Sandra Dodson RN Wound volume breakdown reduced by X% by week 8 Care Plan Impaired Tissue Sandra Dodson RN Wound volume breakdown reduced by X% by week 12 Care Plan Impaired Tissue Sandra Dodson RN Quit using tobacco (cigarettes, smokeless, etc) Care Plan Education needed on impact of smoking on wound Sandra Dodson RN Reduce tobacco use (cigarettes, smokeless, etc) Care Plan Education needed on impact of smoking on wound Sandra Dodson RN Decrease Wound Volume by X% by date (in notes) Care Plan Education needed on impact of smoking on wound Sandra Dodson RN Patient and Caregiver Understand Wound Care Education Care Plan Education needed related to ulceration/compr omised skin integrity. Sandra Dodson RN Medical Devices Implanted Type Area Lease Administration Analyst Device Identifier Shelf Expiration Date Model / Serial / Lot Joints Knee Joints Knee Bilateral : Knee Procedures Procedure Name Priority Date/Time Associated Diagnosis Comments XR HAND 3+ VIEWS BILAT Routine 11/16/2024 12:22 PM EST Bilateral hand pain ANNUAL BMP BLOOD TEST Routine 12/04/2023 HEMOGLOBIN A1C Routine 12/04/2023 LIPID PANEL Routine 12/04/2023 from Last 3 Months or Most Recently Relevant to Health Maintenance Results * XR Hand 3+ Views bilat (11/16/2024 12:22 PM EST) Anatomical Region Laterality Modality Upper Extremities, Hand Bilateral Computed Radiography Narrative 11/17/2024 8:03 PM EST Bilateral AP lateral and oblique x-rays of both hands were obtained on 11/16/2024. ??Patient has bilateral thumb MP fusions present. ??On the right side she has both basal joint arthritis as well as STT joint arthritis. ?? There is also narrowing of the radial scaphoid joint. 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 ??There is a plate evident along the ulnar border of the forearm consistent with either fracture or shortening. ??Patient has some faint calcifications around the MCP joints on the right side prickly at the index and long finger. ??These are not present out on the IP joints although she does have evidence of narrowing at the PIP and DIP joints across the board. ??There is narrowing, sclerosis, periarticular cyst formation. On the patient's left side she has evidence of a trapeziectomy. ??There is evidence of an MP fusion. ??She has some narrowing out of the IP joint to the DIP level of the digits. ??She has full-thickness cartilage loss and some irregular calcification around the MP joint consistent with progressive arthropathy . ??It looks very much like an inflammatory arthritis. There are no worrisome lytic lesions or obvious fractures noted. Yu Hernández MD IMG XR PROCEDURES Final Resul t * Annual BMP Blood Test (12/04/2023) [facility] Annual BMP Blood Test Abstarcted [facility] Provider HEALTH MAINTENANCE Final Result * Hemoglobin A1c (12/04/2023) [facility] Hemoglobin A1C 0.0 % Comment:No Interpretation, A bstracted Blood Venous blood specimen / Unknown [facility] Provider LAB BLOOD ORDERABLES Madelaine l Result * Lipid panel (12/04/2023) [facility] LDL/HDL Ratio 0 Comment:No Interpretation, A bstracted Triglycerides 0 mg/dL Comment:No Interpretation, A bstracted Cholesterol 0 mg/dL Comment:No Interpretation, A bstracted HDL 0 mg/dL Comment:No Interpretation, A bstracted LDL Cholesterol 0 mg/dL Comment:No Interpretation, A bstracted Blood Venous blood specimen / Unknown us Historical Provider LAB BLOOD ORDERABLES Madelaine l Result from Last 3 Months or Most Recently Relevant to Health Maintenance Additional Health Concerns Active Problems Noted Date Diagnosed Date Impaired Tissue 09/22/2024 Education needed on impact of smoking on wound 1 11/22/2023 Education needed related to ulceration/compromised skin integrity. 09/22/2024 Insurance [employer] [id number] [place] [address] Care Teams Credit Product Analyst Relationship Specialty Start Date End Date Candice John FNP [address] [place] [address] PCP - General Family Medicine 11/16/24
== END 2025-01-28 14:39 | disposition home or self-care (01) ==
LOC: HO.HMCH 13:28
PROVIDERS: PCP Registered Nurse
DX: Z13.9 Encounter for screening, unspecified (principal)

== ENCOUNTER → 2025-01-28 13:27 | Outpatient (BNVA) | payer MEDICARE, SELFPAY | PROVIDERS: PCP Registered Nurse | DX: G89.4 Chronic pain syndrome (principal); M96.1 Postlaminectomy syndrome, not elsewhere classified; F17.210 Nicotine dependence, cigarettes, uncomplicated; I73.9 Peripheral vascular disease, unspecified; R91.8 Other nonspecific abnormal finding of lung field; J42 Unspecified chronic bronchitis; E11.9 Type 2 diabetes mellitus without complications; K21.9 Gastro-esophageal reflux disease without esophagitis; H93.A9 Pulsatile tinnitus, unspecified ear; Z86.711 Personal history of pulmonary embolism | CPT/HCPCS: 83036; 96127; 99202 ==

== ENCOUNTER 2025-02-09 12:46 | Outpatient (REF) | payer MEDICARE, SELFPAY ==
--- NOTE | ~2025-02-09 | MM_ITS ---
EXAMINATION: DXA BONE DENSITY AXIAL HISTORY: M81.0 - Age-related osteoporosis without current pathological fracture TECHNIQUE: theRightAPI Dual energy absorptiometry (DEXA) of the lumbar spine, total left hip, and femoral neck was performed. COMPARISON: Comparison is made with the prior examination dated 08/08/2022. FINDINGS: The bone mineral density of the lumbar spine is 1.893 with a T-score of 5.9, and a Z-score of 6.6. This is indicative of normal bone mineral density. This represents a BMD change of -0.7% compared to the prior exam. This is not statistically significant. The bone mineral density of the left total hip is 1.071 with a T-score of 0.5, and a Z-score of 1.1. This is indicative of normal bone mineral density. This represents a BMD change of -8.7% compared to the prior exam. This is statistically significant. The bone mineral density of the left femoral neck is 0.905 with a T-score of -1.0, and a Z-score of -0.1. This is indicative of normal bone mineral density. This represents a BMD change of -13.9% compared to the prior exam. FRACTURE RISK: The FRAX index suggests a ten year probability of major osteoporotic fracture of 28.0%, and of hip fracture 1.7%. MM/XR DEXA axial skeleton IMPRESSION: Based on bone mineral density, and according to World Health Organization (WHO) criteria, the diagnosis is consistent with normal bone mineral density. All bone density values are in grams per centimeter squared (g/cm2). Statistically, 68% of repeat scans fall within 1 SD (+/- 0.010 g/cm2 for AP spine L1-L4) and 1 SD (+/- 0.012 g/cm2 for femur total) FRAX is a trademark of the [employer] [place] for Metabolic Bone Disease, a World Health Organization (WHO) Collaborating Center. Electronically signed by: Giovanni Mauricio MD 02/09/2025 02:00 PM EDT
--- OUTSIDE RECORDS SUMMARY | 2025-02-09 15:34 | XMS_ITS | Clinical Summary ---
Author Organization [facility] Address [address] [place] [address] Care Team Providers Care Shape Carver Name Role Phone Cayla Peñaloza NP Primary Care Provider [phone] Allergies Active Allergy Reactions Criticality Noted Date [...] metroNIDAZOLE (FLAGYL) 500 MG tabletIndications:A bscess of wildlife conservation professor space of mouth Take 1 tablet (500 mg total) by mouth 2 (two) times a day. Take with meals or food to reduce stomach upset. 44 tablet 01/27/2022 Active cephalexin (KEFLEX) 500 MG capsuleIndications: Abscess of wildlife conservation professor space of mouth Take 2 capsules (1,000 mg total) by mouth 2 (two) times a day. 88 capsule 01/27/2022 Active baclofen (LIORESAL) 5 MG tabletIndications:A bscess of wildlife conservation professor space of mouth Take 3 tablets (15 [...] Problem Noted Date Diagnosed Date Abscess of wildlife conservation professor space of mouth 01/16/2022 Overview (01/16/2022): Added automatically from request for surgery [id number] Facial abscess 01/16/2022 Family History Medical History [...] Inactivated Comments 01/16/2022 11:40 PM Care Teams Shape Carver Relationship Specialty Start Date End Date Cayla Peñaloza NP [address] [place] [address] PCP - General Family Medicine 01/16/22
--- OUTSIDE RECORDS SUMMARY | 2025-02-09 15:34 | XMS_ITS ---
Author Organization [facility] Address [address] [place] [address] Care Team Providers Care Concrete Foreman Name Role Phone Candice John Primary Care Provider Aria Day [phone] Encounters Encounter Location Date Provider Diagnosis [facility] [address] [place] [address] 06/08/2024 Aria Dodd Plan Of Treatment Next Appt Details Provider Name:Aria Dodd , 04/19/2025 02:15:00 PM, [address] [place] [address], [phone], Progress Notes * Evelyne CLAUDIO MDOB: (64 yo F)Acc No.[id number]:06/08/2024 Progress Note Patient:?Felicity CLAUDIO Provider:?Aria Dodd DPM :1960???Age:63 Y???Sex:Female D ate:06/08/2024 Address:[address] [place], [place] [address] Pcp:Candice John Subjective: * Chief Complaints: * ??? * Medical History:? Objective: * Vitals:? Assessment: Plan: * Treatment: * Images: * The named appointment provid er may or may not be the originator of this progress note, and it is not deemed complete until electronically signed by the appointment provider. Sign off status: Pending * Provider:?Aria Dodd DPM Date:?2023 Generated for Rehan sullivan/Wali/[place] on:?02/09/2025 03:34 PM EDT
--- OUTSIDE RECORDS SUMMARY | 2025-02-09 15:34 | XMS_ITS | Continuity of Care Document ---
Author Organization [facility] Address [address] [place] [address] Phone Care Team Providers Care Frame Expander Name Role Phone Flavio RIBEIRO, RVLeanne, NO, [...] E&M Established 15 Mins- CT & [place] [facility], [address], [id number], [place] tel:[phone] CVR - [place] - [place] Varicose veins of bilateral lower extremities with other complication sLymphedema, not elsewhere classified 4 Flavio RIBEIRO RVT, NO Davila. [address] [address], [place], [place], [id number], [place]. tel:[phone] Referring Provider: Cayla Peñaloza NP, [address] [facility] [place], [address]. tel:[phone] [facility], [address] [place] [address] [address], [id number], [place] tel:[phone] CVR - [place] Encounter for follow-up examination after completed treatment for conditions other than malignant neChronic venous hypertension (idiopathic) with other complication s of bilateral lower extremity 4 Flavio RIBEIRO RVT, NO Davila. [address] [address], [place], [place], [id number], [place]. tel:[phone] Referring Provider: Cayla Peñaloza NP, [address] [facility] [place], [address]. tel:[phone] [facility], [address] [place] [address] [address], [id number], [place] tel:[phone] CVR - [place] - [place] Varicose veins of left lower extremity with other complication s 4 Wyatt Briceno. [address] [facility] [address], [place], [place], [id number], [place]. tel:[phone] Referring Provider: Cayla Peñaloza NP, [address] [facility] [place], [address]. tel:[phone] [facility], [address] [place] [address] [address], [id number], [place] tel:[phone] CVR - [place] - [place] Encounter for follow-up examination after completed treatment for conditions other than malignant nePain in right leg 0 4 Flavio RIBEIRO RVT, NO Davila. [address] [place] [address], [address] [facility], [place], [id number], [place]. tel:[phone] Referring Provider: Cayla Peñaloza NP, [address] [facility] [place], [address]. tel:[phone] [facility], [address] [place] [address] [address], [id number], [place] tel:[phone] CVR - [place] - [place] Chronic venous hypertension (idiopathic) with inflammation of right lower extremity Nov- 4 Flavio RIBEIRO RVT, NO Davila. [address] [place] [address], [address] [facility], [place], [id number], [place]. tel:[phone] Referring Provider: Cayla Peñaloza NP, [address] [place] [address] [place] [address] [place], [address]. tel:[phone] [facility], [address] [place] [address] Dr [address], [id number], [place] tel:[phone] CVR - [place] - [place] Encounter for follow-up examination after completed treatment for conditions other than malignant neVaricose veins of right lower extremity with pain Nov- 4 Flavio RIBEIRO RVT, NO Davila. [address] [place] [address], [address] [address], [place], [id number], [place]. tel:[phone] Referring Provider: Cayla Peñaloza NP, [address] [facility] [place], [address]. tel:[phone] [facility], [address] [place] [address] [address], [id number], [place] tel:[phone] CVR - [facility] Varicose veins of right lower extremity with other complication s 4 Flavio RIBEIRO RVT, RPVI Robert. [address] [place] [address], [address], [place], [id number], [place]. tel:[phone] Referring Provider: Cayal Peñaloza NP, [address] [facility] [place], [address]. tel:[phone] Offic/outpt E&m Estab 5 Min Trial - [facility], [address] [place] [address] [address], [id number], [place] tel:[phone] [facility] Localized edemaCramp and spasmRestles s legs syndromeVeno us insufficienc y (chronic) (peripheral) Disorder of pigmentation , unspecified 3 Wyatt Briceno. [address] [facility] [address], [facility] [place], [id number], [place]. tel:[phone] Referring Provider: Cayla Peñaloza NP, [address] [facility] [place], [address]. tel:[phone] Offic Cons New/estab Mod-hi 60 [facility], [address] [place] [address] [address], [id number], [place] tel:[phone] CV - [facility] Varicose veins of bilateral lower extremities with other complication sVaricose veins of right lower extremity with inflammation Varicose veins of left lower extremity with inflammation Localized edemaRestles s legs syndromeLymp hedema, not elsewhere classifiedDi sorder of pigmentation , unspecifiedH ereditary lymphedemaCr amp and spasm Jul- 3 Pranay RIBEIRO FACS RVT RPGEMA [place]. [address] [facility] [address], [place], [id number], [place]. tel:[phone] Referring Provider: Cayla Peñaloza NP, [address] [facility] [place], [address]. tel:[phone] [facility], [address] [place] [address] [address], [id number], [place] tel:[phone] [facility] Chronic venous hypertension (idiopathic) with other complication s of bilateral lower extremity 3 Pranay RIBEIRO FACS RVT NO Barah[place]. [address] [facility], [address], [place], [address], [place]. tel:[phone] Referring Provider: Cayla Peñaloza LEAN MANUFACTURING COORDINATOR, [address] [place] [address] [address] [employer] [facility] , [place], [address]. tel:[phone] Family History Family Member Type Diagnosis Age At Onset No Information Payers Payer name Insurance type Covered republican ID Thea alejandra(s) [employer] [place] [employer] CI [id number] Social History Type Description Quantity Date Captured [...] Of Treatment Date Type Action Status Goal Diet education completed Goal Tobacco cessation counseling completed Goal Tobacco cessation counseling completed Goal Diet education completed Goal Tobacco cessation counseling completed Referral Ordered: Weight management: Referral to [...] Information Instructions Date Instruction Additional Infor mation Diet education Related to Body mass index (BMI) 31.0-31.9, adult Giving Encouragement to exercise Related to Body mass index (BMI) 31.0-31.9, adult Lifestyle education Related to B steven mass index (BMI) 31.0-31.9, adult Compression stocking usage as conservative measure Related to Varicose veins of bilateral lower extremities with other complications Patient education booklet given Related to Varicose veins of bilateral lower extremities with other complications Patient education booklet given Related to Localized edema Pre and post instruc tions reviewed and provided Related to Localized edema Diet education Related to Body mass index (BMI) 31.0-31.9, adult Giving Encouragement to exercise Related to Body mass index (BMI) 31.0-31.9, adult Lifestyle education Related to B steven mass index (BMI) 31.0-31.9, adult Patient education booklet given Related to Varicose veins of bilateral lower extremities with other complications Pre and post instruc tions reviewed and provided Related to Varicose veins of bilateral lower extremities with other complications Assessments Type Assessment Date No Information Patient Care Teams Name Effective Dates (start - stop) Status Members No Information
--- OUTSIDE RECORDS SUMMARY | 2025-02-09 15:34 | XMS_ITS ---
Author Organization [facility] Address [address] [place] [address] Care Team Providers Care Target Trimmer Name Role Phone Anabela CANTRELL, Cayla Primary Care Provider Getachew De Dios Jr REASON FOR VISIT screening,hx polyps Encounters Encounter Location Date Provider Diagnosis [facility] [address] [place], [place] [id number] 01/10/2024 Getachew Toscano Jr Encounter for screening colonoscopy Z12.11 and Personal history of colonic polyps Z86.010 Assessments Encounter Date Diagnosis (ICD Code) Assessment Notes Treatment Notes Treatment Clinical Notes Section Notes 01/10/2024 Encounter for screening colonoscopy (ICD-10 - Z12.11) 01/10/2024 Personal history of colonic polyps (ICD-10 - Z86.010) Plan Of Treatment No Information Progress Notes * BEAR KRAUSE MDOB: (64 yo F)Acc No.[id number]:01/10/2024 COLON WITH MAC Patient:?AMANDA KRAUSE Provider:?Getachew Toscano MD :1960???Age:63 Y???Sex:Female D ate:01/10/2024 Address:[address] [place], [place] [id number] Pcp:Cayla Peñaloza NP Subjective: * Chief Complaints: * ???1. Screening,hx polyps. * Medical History:? Objective: * Vitals:? Assessment: * Assessment: 1.?Encounter for screening c olonoscopy - Z12.11 (Primary)???2.?Personal history of colonic polyps - Z86.010??? Plan: * Treatment: * Procedure Codes:?94493 DIAGN OSTIC COLONOSCOPY * Preventive Medicine:? ??JACQUELINE [...] MD Date:?0 01/10/2024 Generated for Rehan sullivan/Wali/Kennysmitting on:?02/09/2025 03:34 PM EDT
--- OUTSIDE RECORDS SUMMARY | 2025-02-09 15:34 | XMS_ITS | Clinical Summary ---
Author Organization [facility] Address [address] [place] [address] Care Team Providers Care Youtuber Name Role Phone Cayla Peñaloza NP Primary Care Provider [phone] Social History Tobacco Use Types Packs/Day Years [...] age to complete this topic Care Teams Youtuber Relationship Specialty Start Date End Date Cayla Peñaloza, PINKING SEWING MACHINE OPERATOR [address] [facility] [id number] PCP - General Family Medicine 03/20/19
--- OUTSIDE RECORDS SUMMARY | 2025-02-09 15:34 | XMS_ITS | Patient Health Record ---
Author Organization [facility] Address [address] [facility] [place] [address] Care Team Providers Care Aerophysicist Name Role Phone Candice John Primary Care Provider Unavailabl e Aria Dodd Unavailable [phone] Jun Limon Unavailable [phone] Allergies Allergen (clinical drug ingredient) Drug/Non Drug [...] Problem Acquired hammer toe of right foot (6292992742910966 ) Other hammer toe(s) (acquired), right foot (M20.41) Active confirmed Problem Acquired hammer toe of left foot (1994116912569009 ) Other hammer toe(s) (acquired), left foot (M20.42) Active confirmed Problem Polyneuropathy due to type 2 diabetes mellitus (017812515) Type 2 diabetes mellitus with diabetic polyneuropathy (E11.42) Active confirmed Problem Chronic ulcer of foot (746414068) Non-pressure chronic ulcer of other part of left foot with fat layer exposed (L97.522) Active confirmed Problem 79748007 Unsteady gait (R26.81) Active confirmed Problem 75489456 Smoker (F17.200) Active confirmed Problem 204241462 Charcot's joint of right foot (M14.671) Active confirmed Problem Localized, primary osteoarthritis of the ankle and/or foot (547722419) Arthritis of joint of lesser toe, left (M19.072) Active confirmed Problem Localized, primary osteoarthritis of the ankle and/or foot (729798835) Arthritis of joint of lesser toe, right (M19.071) Active confirmed Vital Signs Height 5ft 3in in 02/20/2024 Weight 175 lbs 02/20/2024 BMI 31.00 kg/m2 02/20/2024 Procedures Procedure Date Ordered Date Performed Result Body Sit e 04180-GGUUYPU NAIL, 6 OR MORE 02/20/2024 N/A 93972-Apry Destruction, 1-14 02/20/2024 N/A 99854-SNHD SKIN LESIONS, OVER 4 02/20/2024 N/A Encounters Encounter Location Date Provider Diagnosis [facility] [address] [place] [address] 02/20/2024 Aria Black Other hammer toe(s) (acquired), right foot M20.41 ; Unsteady gait R26.81 ; Type 2 diabetes mellitus with diabetic polyneuropathy E11.42 ; Other hammer toe(s) (acquired), left foot M20.42 ; Verruca pedis B07.0 ; Left foot pain M79.672 ; Onychomycosis B35.1 ; Diabetic Charcot's foot E11.610 and Charcot's joint of right foot M14.671 [facility] [address] [address] 04/22/2024 Jun Limon [facility] [address] [address] 06/08/2024 Aria Dodd Assessments Encounter Date Diagnosis [...] X ray : Foot, right 3V 09/22/2013 12877-QRKJABR NAIL, 6 OR MORE 01/26/2014 37569-LONFOLI NAIL, 6 OR MORE 05/24/2015 03867-DXALJND NAIL, 6 OR MORE 04/29/2013 14456-ONAMDGJ NAIL, 6 OR MORE 07/14/2013 76448-MGLZHSX NAIL, 6 OR MORE 06/10/2015 58913-LPSKTLV NAIL, 6 OR MORE 08/02/2015 29794-MQLOYZZ NAIL, 6 OR MORE 10/11/2020 09400-LIRFPPO NAIL, 6 OR MORE 04/11/2021 17370-VIURFXD NAIL, 6 OR MORE 07/18/2023 62469-BDHCRJF NAIL, 6 OR MORE 11/07/2023 33297-FEXHAMD NAIL, 6 OR MORE 02/20/2024 55933-Eyek Destruction, 1-14 02/20/2024 25262-Xccv Destruction, 1-14 07/18/2023 71640-Iesr Destruction, 1-14 11/07/2023 23681-Empk Destruction, 1-14 10/11/2020 17548-NKJM SKIN LESIONS, OVER 4 10/11/20 20 30351-UGZN SKIN LESIONS, OVER 4 02/20/20 24 05254-ABAF SKIN LESIONS, OVER 4 11/07/19 24 97663-HSNB SKIN LESIONS, OVER 4 04/11/20 21 21587-QKSQ SKIN LESIONS, OVER 4 07/18/20 23 30843-SEWX SKIN LESIONS, 2 TO 4 08/02/20 15 95905-ANJN SKIN LESIONS, 2 TO 4 06/10/20 15 53270-AWHM SKIN LESIONS, 2 TO 4 04/29/20 13 33006-DXZS SKIN LESIONS, 2 TO 4 07/14/20 13 44305-PLNQ SKIN LESIONS, 2 TO 4 05/24/20 15 86038-PLMR SKIN LESIONS, 2 TO 4 01/27/20 14 10454- Removal of Foreign Body, Subcut 1 50,X1186-VUF TENDON SHEATH/LIGAMENT 0 07/01/201563516,E4811-GNF TENDON SHEATH/LIGAMENT 0 07/17/201340550,L6223-GIA TENDON SHEATH/LIGAMENT 1 50,W4793-VPN TENDON SHEATH/LIGAMENT 1 Next Appt Details Provider Name:Aria Dodd , 04/19/2025 02:15:00 PM, [address] [place] [address], [phone], Insurance Providers Payer Name Payer Address Payer Phone Subscriber Number Group Number Insured Name Patient Relationship to Insured Coverage Start Date Coverage End Date [employer] [address] [place] [address] [id number] Evelyne Claudio Self - patient is the [...] Reason Date(Month/Year) pneumonia sm blood clot 07/09- [facility] - Infection removal duncan th-shaved bone 12/2021 [facility] - [facility] 03/2022 [facility] - right knee replacement 08/2022 [facility] [place] [facility] [place]/2022 [facility] - Cervical spine surgery 02/2023
--- OUTSIDE RECORDS SUMMARY | 2025-02-09 15:34 | XMS_ITS ---
Author Organization [facility] Address [address] [place] [address] Care Team Providers Care Bench Patternmaker Metal Name Role Phone John Candice Primary Care Provider Diaz dayna Aria Dodd [phone] REASON FOR VISIT cx 06/08 Encounters Encounter Location Date Provider Diagnosis [address] [address] 06/08/2024 Aria Yousif Plan Of Treatment Next Appt Details Provider Name:Aria Arnold Yousif , 04/19/2025 02:15:00 PM, [address] [place] [address], [phone], Progress Notes * Evelyne CLAUDIO MDOB: (63 yo F)Acc No.[id number]:06/08/2024 Patient:?Felicity Claudio :1960???Age:63 Y???Sex:Female Address: [place] [address] * true * Date:? Generated for Printi ng/Faxing/eTransmitting on:?02/09/2025 03:33 PM EDT
--- OUTSIDE RECORDS SUMMARY | 2025-02-09 15:34 | XMS_ITS ---
Author Organization [facility] Address [address] [place] [address] Care Team Providers Care Sludge Mill Operator Name Role Phone Cayla Peñaloza NP Primary Care Provider Getachew De Dios Jr Unavailable [phone] Allergies Allergen (clinical drug ingredient) Drug/Non Drug [...] Problem Status W/U Status Risk Notes Problem 637734431 Personal history of colonic polyps (Z86.010) Active confirmed Problem 80814568 Drug-induced constipation (K59.03) Active confirmed Problem 405090669 Colon cancer screening (Z12.11) Active confirmed Problem 988100536 Gastroesophageal reflux disease, unspecified whether esophagitis present (K21.9) Active confirmed Vital Signs Temperature 97.7 degrees Fahrenheit 11/27/19 24 Blood pressure systolic 000 mm Hg 11/27/19 24 Blood pressure diastolic 00 mm Hg 024 Height 63.5 in 11/27/2023 Weight 171 lb 5 oz lbs 11/27/2023 BMI 29.87 kg/m2 11/27/2023 Encounters Encounter Location Date Provider Diagnosis [facility] [address] [place] [address] 11/27/2023 Getachew Toscano Jr Drug-induced constipation K59.03 [...] * BEAR KRAUSE MDOB: (63 yo F)Acc No.[id number]:11/27/2023 Progress Notes Patient:?AMANDA RKAUSE Provider:?Getachew Toscano MD :1960???Age:63 Y???Sex:Female D ate:11/27/2023 Address:[address] [place], [place] [id number] Pcp:Cayla Peñaloza NP Subjective: * Chief Complaints: [...] MD Date:?0 11/27/2023 Generated for Rehan sullivan/Wali/eTransmitting on:?02/09/2025 03:34 PM EDT History and Physical Notes * [...]
--- OUTSIDE RECORDS SUMMARY | 2025-02-09 15:35 | XMS_ITS | Clinical Summary ---
Author Organization [address] [facility] Address [address] [place] [address] Phone Care Team Providers Care Country Director Name Role Phone Lilo Davis Primary Care Provider [phone] Allergies Active Allergy Reactions Criticality Noted Date Comments Aripiprazole Medium 09/03/2024 EDEMA Duloxetine Medium 09/03/2024 EDEMA Medications acetaminophen (TYLENOL) 325 mg tablet Take 2 Tablets by mouth. Active albuterol HFA (PROAIR HFA ; PROVENTIL HFA ; VENTOLIN HFA) 90 mcg/actuation inhaler 3 Active amLODIPine (NORVASC) 2.5 mg tablet Active baclofen (LIORESAL) 10 mg tablet 1 Active chlorhexidine (PERIDEX) 0.12 % solution 3 Active cholecalcifero l (VITAMIN D-3) 25 [...] MEALS 3 Active magnesium hydroxide (MAGNESIA ORAL) Active nystatin (MYCOSTATIN) cream 3 Active omeprazole (PriLOSEC) [...] with neurogenic claudication Diabetes mellitus, type 2 (CMS/HCC V24, CMS/HCC V28) 09/03/2024 Pure hypercholesterolemia 09/03/2024 Postoperative wound infection [...] getting referral to cardiology Dr. Taylor at [facility]. She has history of lymphedema, her right [...] time. All questions answered. Cervical cord compression wi th myelopathy ([facility] V24, [facility] V28) 03/12/2023 Overview (08/31/2024): Last Assessment & Plan: Ms. 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 ([facility] V24, [facility] V28) 04/20/2020 Overview (08/31/2024): Last Assessment & Plan: Managed by rheumatology, taking hydroxychloroquine and sulfasalazine Pyogenic inflammation of bone ([facility] V24, [facility] V28) 12/02/2019 Lichen sclerosus 07/29/2018 Slow transit constipation [...] foot pain 10/17/2017 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 ([facility] [place]24, [facility] V28) 10/17/2017 Overview (08/31/2024): Last Assessment & Plan: Labs as ordered for treatment evaluation, she notes very sedentary lifestyle Status post total left knee replacement 10/17/20 17 Depression, major, recurrent , in partial remission ([facility] V24) 06/02/2015 Major depressive disorder, r ecurrent episode, in partial remission ([facility] V24) 06/18/2013 Opioid type dependence ([facility] V24, [facility] V28 ) 05/21/2013 Overview (08/31/2024): IMO update Alcohol abuse 04/03/2012 Back pain 04/03/2012 DJD (degenerative joint disease) of knee 012 Hypercholesteremia 04/03/2012 Hypertension 04/03/2012 Obesity 04/03/2012 Tobacco dependence 04/03/2012 Encounters Date Type Department Care Team Description 02/01/2025 1:45 PM EDT Office Visit Orthopedic Surgery [facility] [address] [facility] [address] [place] [phone] Laurel Haynes PA Left elbow pain (Primary Dx) 12/24/2024 Telephone Neurosurgery [facility] [address] [facility] [address] [place] [address] Lakesha Perkins [place] 11/16/2024 11:45 AM EST Office Visit Orthopedic Surgery [facility] [address] [facility] [address] [place] [phone] Yu Hernández MD Bilateral hand pain (Primary Dx); Degenerative arthritis of metacarpophalangeal joint of index finger of left hand; Seropositive rheumatoid arthritis of multiple joints ([facility] V24, [facility] V28) from Last 3 Months Immunizations Name Administration [...] mellitus type 2, co ntrolled, with complications ([facility] V24, [facility] V28) DX:Diabetes mellitus type 2, controlled, with complications ([facility]) Esophageal reflux DX:Esophageal reflux Anxiety state DX:Anxiety state Depressive disorder DX:Depressiv e disorder Hyperlipidemia DX:Hyperlipidemi a Essential hypertension DX:Essent ial hypertension Rheumatoid arthritis (CMS/ C V24, [facility] V28) DX:Rheumatoid arthritis (HCC ); COMMENT: Severe in the right knee; also [...] - - Weight 85.3 kg (188 lb) 02/01/2025 1:43 PM EDT Height 157.5 cm (5' 2.01 ) 02/01/2025 1:43 PM ED T Body Mass Index 34.38 02/01/2025 1:43 PM EDT Plan of Treatment Health Maintenance Due [...] age to complete this topic Meningococcal B Vaccine Aged Out No l onger eligible based on patient's age to complete [...] Dodson RN Medical Devices Implanted Type Area Customs Compliance Analyst Device Identifier Shelf Expiration Date Model [...] t * Annual BMP Blood Test (12/04/2023) [facility] Annual BMP Blood Test Abstarcted Result [facility] Historical Provider HEALTH MAINTENANCE Final Result * Hemoglobin A1c (12/04/2023) [facility] Hemoglobin A1C 0.0 % Comment:No Interpretation, A bstracted Blood Venous blood specimen / Unknown Historical Provider LAB BLOOD ORDERABLES Madelaine l Result * Lipid panel (12/04/2023) [facility] LDL/HDL Ratio 0 Comment:No Interpretation, A bstracted [...] 09/22/2024 Insurance [employer] Care Teams Country Director Relationship Specialty Start Date End Date Lilo Davis PA [address] [facility], [address] [place] [address] PCP - General 02/01/25
--- OUTSIDE RECORDS SUMMARY | 2025-02-09 15:35 | XMS_ITS | Patient Health Record ---
Author Organization [facility] Address [address] [place] [address] Care Team Providers Care Trials Manager Name Role Phone Anabela CANTRELL, Cayla Primary [...] Problem Status W/U Status Risk Notes Problem 958642777 Colon cancer screening (Z12.11) Active confirmed Problem 156770972 Personal history of colonic polyps (Z86.010) Active confirmed Problem 11422072 Drug-induced constipation (K59.03) Active confirmed Problem 423070938 Gastroesophageal reflux disease, unspecified whether esophagitis present (K21.9) Active confirmed Plan Of Treatment Future Test Test Name Order Date COLONOSCOPY 11/04/2014 COLONOSCOPY 11/27/2023 Insurance Providers Payer Name Payer Address Payer Phone Subscriber Number Group Number Insured Name Patient Relationship to Insured Coverage Start Date Coverage End Date [facility] [address] [place] [address] [id number] BEAR KRAUSE Self - patient is the [...]
--- OUTSIDE RECORDS SUMMARY | 2025-02-09 15:35 | XMS_ITS ---
Author Organization [facility] Address [address] [facility] [place] [address] Care Team Providers Care Screen Making Supervisor Name Role Phone Candice John Primary Care Provider Diaz dayna Aria Dodd Unavailable [phone] Jun Lmion Unavailable [phone] REASON FOR VISIT [employer]. Encounters Encounter Location Date Provider Diagnosis [address] [address] 04/22/2024 Jun Limon Plan Of Treatment Next Appt Details Provider Name:Aria Arnold Yousif , 04/19/2025 02:15:00 PM, [address] [place], [address], Progress Notes * Evelyne CLAUDIO MDOB: (63 yo F)Acc No.[id number]:04/22/2024 Patient:?Felicity Claudio :1960???Age:63 Y???Sex:Female Address: [place] [address] * true * Date:? Generated for Printi ng/Fayamiletg/eTransmitting on:?02/09/2025 03:34 PM EDT
== END 2025-02-09 12:47 | disposition home or self-care (01) ==
LOC: HO.MAMMO 12:46
DX: Z12.31 Encounter for screening mammogram for malignant neoplasm of breast (principal); M81.0 Age-related osteoporosis without current pathological fracture
CPT/HCPCS: 77063; 77067; 77080

== ENCOUNTER → 2025-02-09 13:15 | Outpatient (BNV) | payer MEDICARE, SELFPAY | PROVIDERS: Visit Provider Radiology Diagnostic Radiology | DX: E28.39 Other primary ovarian failure (principal) | CPT/HCPCS: 77080 ==

== ENCOUNTER 2025-02-18 10:59 | Outpatient (AMB) | payer MEDICARE, SELFPAY ==
--- NOTE | 2025-02-18 11:02 | MHC.OFFVIS ---
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 leg edema Intake Note: New patient dx leg edema in right leg since knee replacement in 2021 Bus Person Dishwasher Required: No Allergies lisinopril Allergy (Intermediate, Verified 01/28/25 14:00) Swelling clavulanic acid [From Augmentin] Allergy (Mild, Verified 01/28/25 14:00) RASH aripiprazole [From ABILIFY] Adverse Reaction (Intermediate, Verified 01/28/25 14:00) EDEMA duloxetine [From CYMBALTA] Adverse Reaction (Intermediate, Verified 01/28/25 14:00) WT GAIN/EDEMA Medication List - Last Reconciled 02/18/25 by Ryne Taylor MD albuterol sulfate 90 mcg/actuation 1 puff inhalation Q4H baclofen 10 mg PO TID PRN blood sugar diagnostic (FreeStyle Lite Strips) bupropion HCl XL 300 mg PO DAILY clotrimazole-betamethasone 1-0.05 % 1 appl topical BID cyclobenzaprine 10 mg PO TID docusate sodium 100 mg PO BID furosemide 40 mg (2 x 20 mg) PO DAILY hydroxychloroquine 200 mg PO BID ibuprofen 600 mg PO Q8H PRN levothyroxine 88 mcg PO DAILY magnesium oxide 400 mg PO ONCE omeprazole 20 mg PO DAILY oxybutynin chloride ER 1 tab PO DAILY oxycodone ER 10 mg PO Q12H oxycodone ER (OxyContin) 15 mg PO BID pregabalin 75 mg PO TID simvastatin 1 tab PO BEDTIME sulfasalazine 1 g (2 x 500 mg) PO BID NS venlafaxine ER 150 mg PO DAILY HPI Comments Details: Evelyne was referred here for further evaluation of right lower extremity edema. Patient was 64-year-old female with multiple medical problems including connective tissue disorder, diabetes, peripheral vascular disease status post stenting in both lower extremity being followed by vascular surgery, chronic smoking, chronic pain syndrome with chronic spinal issues multiple surgeries in the past with limited exercise activity because of the pain, chronic bronchitis. Patient since the knee surgery 3 years ago few months following that developed swelling in the right lower extremity [id number]. This has progressively got worse and recently was started on diuretic therapy for the same. She says she is mostly independent position with her lower extremities and is not exercising much. She had tried compression venous stocking but was not able to tolerated. She says Lasix therapy has helped somewhat. She denies any orthopnea, PND, abdominal distension. No chest pain although functional capacity is limited. Does no prior history of cardiovascular issues including no history of congestive heart failure. FORMERLY [facility], [facility]–1983 Medical History Diabetes History of pulmonary embolism Nicotine dependence, cigarettes, uncomplicated Overactive bladder Thyroid disease Elevated cholesterol Spinal stenosis Anxiety Depression HTN (hypertension) Constipation GERD (gastroesophageal reflux disease) Mass of right thigh Long-term use of hydroxychloroquine Alcohol abuse Chronic bronchitis Seronegative rheumatoid arthritis Pilonidal cyst Neuropathy Carpal tunnel syndrome Rheumatoid arthritis Osteomyelitis Osteoarthritis Pleurisy Surgical History History of thoracic spinal fusion Hx of cervical spine surgery History of elbow surgery H/O colonoscopy History of total right knee replacement (TKR) H/O hernia repair History of surgery on arm History of left knee replacement (~2017) Previous back surgery (~2016) Family History Mother CHF (congestive heart failure) Stroke Uterine cancer Father CHF (congestive heart failure) Sister Diabetes Brother Diabetes Pulmonary embolism Other Mental health disorder Substance use disorder Social History Household Members: None Housing: Apartment Are you a primary menagerie caretaker to a significant other at home: No Unable to assess alcohol history related to: Unable to respond Alcohol intake: current Alcohol intake frequency: a few times a week Alcohol type: hard liquor Patient Tobacco Use Status: Current everyday Tobacco user Tobacco use type: Cigarette Cigarette Packs Per Day: 1.5 Cigarettes Per Day: 30.0 Years Smoked: 40 e-Cigarette/Vaping Use: Never Used Second Hand Smoke Exposure: Yes Substance Use Type: Marijuana service: No Current occupational status: unemployed Cognitive needs: Yes (walker, cane) Hearing needs: No Vision needs: Yes (Reading glasses) Review of Systems Const Denies chills, Denies daytime sleepiness, Denies fatigue, Denies fever(s), Denies frequent falls, Denies poor appetite, Denies snoring, Denies stops breathing during sleep, Denies weakness, Denies weight gain and Denies weight loss Eyes Denies loss of vision ENT Denies dizziness and Denies hearing loss Card Denies chest pain, Denies claudication, Denies leg edema, Denies lightheadedness, Denies palpitations, Denies dyspnea, Denies dyspnea on exertion and Denies orthopnea Resp Denies cough, Denies excessive phlegm production, Denies dyspnea, Denies dyspnea on exertion, Denies snoring and Denies wheezing GI Denies abdominal pain, Denies hematochezia, Denies change in bowel habits, Denies nausea and Denies vomiting Denies urinary frequency and Denies dysuria Musc Denies arthralgias, Denies muscle weakness, Denies numbness and Denies other (frequent falls) Skin/Breast Denies nail changes and Denies rash Neuro Denies Abnormal speech present, Denies dizziness, Denies frequent falls, Denies loss of vision, Denies memory loss, Denies numbness and Denies weakness Psych Denies depression and Denies memory loss Endo Denies fatigue and Denies palpitations Ronaldo/Lymph Reports easy bruising and Reports other (anemia) Aller/Immun Denies wheezing Physical Exam Vital Signs: Last Vital Signs Pulse 74 02/18/25 11:03 BP 120/78 02/18/25 11:03 BMI result Body Mass Index 33.9 Const General: cooperative, comfortable, no acute distress, alert and awake Nutritional Appearance: obese Orientation/consciousness: patient oriented x3 Limitations: wheelchair HEENT Head: Yes normocephalic and Yes atraumatic Neck Neck: Yes trachea midline, Yes supple and Yes no JVD Resp Effort & Inspection: normal respiratory effort Auscultation: crackles (Coarse) on the right at the base and diminished lung sounds Cardio Jugular venous distension: no JVD Palpation: normal PMI Rate: regular rate Rhythm: regular rhythm Heart sounds: S1 normal heart sound present, S2 normal heart sound present, no click, no gallops and no murmurs GI Auscultation: normal bowel sounds Skin General skin exam: no rashes or lesions noted Neuro General: patient oriented x3 and no focal motor deficits Speech: No Abnormal speech present Extrem General: No clubbing, No cyanosis, Yes edema (3+ right below knee, 1+ left below-knee) and Yes venous stasis dermatitis (On the right) Psych Appearance: grossly normal Office Procedures EKG Details: EKG shows normal sinus rhythm normal EKG 25876-Hnpnotjyqsocnjwyv, Complete Assessment & Plan Assessment & Plan (1) Unilateral edema of lower extremity: Code(s): R60.0 - Localized edema Category: Medical Plan: Unilateral lower extremity edema in this elderly woman who has mostly sedentary position with leg dependent position and mostly in the right lower extremity at the site of knee surgery is most suggestive of venous insufficiency rather than heart failure. She has had some response to diuretic regimen which is not the best therapy for this. I discussed about leg elevation as well as compression venous stocking. She says she was difficulty with compression venous stockings. We discussed alternatives to it. I will obtain a BNP for completion sake. Also suggest an echocardiogram to evaluate LV systolic and diastolic function to evaluate for right-sided function as well as for pulmonary hypertension. No other cardiac workup is indicated at this point time. She is encouraged to improve mobility although this is difficult for her. Also encouraged to continue to follow with vascular surgery. She should be on low-dose aspirin therapy for life given her peripheral vascular disease and multiple risk factors. Complete smoking cessation was advised. She will also be on high-intensity statin therapy with target goal LDL less than 70 mg/dL. Will follow up in the clinic if need be. Thank you for allowing me to partake in her care Orders: Orders CA echo transthoracic complete Today Ryne Taylor MD R60.0 - Localized edema B Type Natriuretic Peptide Today Ryne Taylor MD R60.0 - Localized edema Medications: Changed From magnesium oxide 400 mg PO BIDPC 60 tabs 0RF To magnesium oxide 400 mg PO ONCE Misbah Valdivia MD Coding Level of Care Code New Pt Level 4 (27885) Complex EM visit Add On G2211 Diagnoses Unilateral edema of lower extremity R60.0 CPT Codes EKG - CPT: 21185-Mowmvujsvjbaothcq, Complete ([id number])
[2025-02-18 11:03] VITALS: BP 120/78; PULSE 74; BMI 33.9
--- OUTSIDE RECORDS SUMMARY | 2025-02-18 12:57 | XMS_ITS | Patient Health Record ---
Author Organization [facility] Address [address] [address] Care Team Providers Care Class A Lineman Name Role Phone Candice John Primary Care Provider Unavailabl e Aria Dodd Unavailable [phone] Jun Limon Unavailable [phone] Allergies Allergen (clinical drug ingredient) Drug/Non Drug [...] Problem Acquired hammer toe of right foot (9731369257765856 ) Other hammer toe(s) (acquired), right foot (M20.41) Active confirmed Problem Acquired hammer toe of left foot (1696421904581230 ) Other hammer toe(s) (acquired), left foot (M20.42) Active confirmed Problem Polyneuropathy due to type 2 diabetes mellitus (815164510) Type 2 diabetes mellitus with diabetic polyneuropathy (E11.42) Active confirmed Problem Chronic ulcer of foot (660087793) Non-pressure chronic ulcer of other part of left foot with fat layer exposed (L97.522) Active confirmed Problem 14928953 Unsteady gait (R26.81) Active confirmed Problem 22594659 Smoker (F17.200) Active confirmed Problem 111349310 Charcot's joint of right foot (M14.671) Active confirmed Problem Localized, primary osteoarthritis of the ankle and/or foot (422689430) Arthritis of joint of lesser toe, left (M19.072) Active confirmed Problem Localized, primary osteoarthritis of the ankle and/or foot (401846616) Arthritis of joint of lesser toe, right (M19.071) Active confirmed Vital Signs Height 5ft 3in in 02/20/2024 Weight 175 lbs 02/20/2024 BMI 31.00 kg/m2 02/20/2024 Procedures Procedure Date Ordered Date Performed Result Body Sit e 66625-KMNUUDF NAIL, 6 OR MORE 02/20/2024 N/A 65943-Hnda Destruction, 1-14 02/20/2024 N/A 66645-WIRQ SKIN LESIONS, OVER 4 02/20/2024 N/A Encounters Encounter Location Date Provider Diagnosis [facility] [place] [address] [place] [address] 02/20/2024 Aria Black Other hammer toe(s) (acquired), right foot M20.41 ; Unsteady gait R26.81 ; Type 2 diabetes mellitus with diabetic polyneuropathy E11.42 ; Other hammer toe(s) (acquired), left foot M20.42 ; Verruca pedis B07.0 ; Left foot pain M79.672 ; Onychomycosis B35.1 ; Diabetic Charcot's foot E11.610 and Charcot's joint of right foot M14.671 [facility] [address] [address] 04/22/2024 Jun Limon [facility] [address] [address] 06/08/2024 Aria Dodd Assessments Encounter Date Diagnosis [...] X ray : Foot, right 3V 09/22/2013 66513-YSSODOO NAIL, 6 OR MORE 01/26/2014 25999-QOGTSFM NAIL, 6 OR MORE 05/24/2015 96365-XOVWHHJ NAIL, 6 OR MORE 04/29/2013 77678-VKMTUJC NAIL, 6 OR MORE 07/14/2013 77296-UVAMXWS NAIL, 6 OR MORE 06/10/2015 74774-OZJDUBX NAIL, 6 OR MORE 08/02/2015 72996-NZEFNMZ NAIL, 6 OR MORE 10/11/2020 48396-MULUKJM NAIL, 6 OR MORE 04/11/2021 27111-OIIZGSP NAIL, 6 OR MORE 07/18/2023 83231-SNIBELK NAIL, 6 OR MORE 11/07/2023 46420-BKUGWVI NAIL, 6 OR MORE 02/20/2024 51093-Nayh Destruction, 1-14 02/20/2024 17421-Yuot Destruction, 1-14 07/18/2023 14751-Iqye Destruction, 1-14 11/07/2023 83100-Aibl Destruction, 1-14 10/11/2020 17642-GBXK SKIN LESIONS, OVER 4 10/11/20 20 16492-AAAK SKIN LESIONS, OVER 4 02/20/20 24 53937-LPFP SKIN LESIONS, OVER 4 11/07/19 24 99142-HCLO SKIN LESIONS, OVER 4 04/11/20 21 14300-XKQN SKIN LESIONS, OVER 4 07/18/20 23 91029-OXHQ SKIN LESIONS, 2 TO 4 08/02/20 15 45802-MXAB SKIN LESIONS, 2 TO 4 06/10/20 15 75905-PVGI SKIN LESIONS, 2 TO 4 04/29/20 13 26428-YSYZ SKIN LESIONS, 2 TO 4 07/14/20 13 77209-HIEN SKIN LESIONS, 2 TO 4 05/24/20 15 40110-JHKW SKIN LESIONS, 2 TO 4 01/27/20 14 40720- Removal of Foreign Body, Subcut 1 50,P2679-TZI TENDON SHEATH/LIGAMENT 0 07/01/201553457,P1625-PCJ TENDON SHEATH/LIGAMENT 0 07/17/201334600,W2458-AAP TENDON SHEATH/LIGAMENT 1 50,T2685-UUI TENDON SHEATH/LIGAMENT 1 Next Appt Details Provider Name:Aria Dodd , 04/19/2025 02:15:00 PM, [address] [place] [address], [phone], Insurance Providers Payer Name Payer Address Payer Phone Subscriber Number Group Number Insured Name Patient Relationship to Insured Coverage Start Date Coverage End Date [employer] [place] [employer]vantage [address] [place] [address] [id number] Evelyne Claudio Self - patient is the [...] Reason Date(Month/Year) pneumonia sm blood clot 07/09- [facility] - Infection removal [place] th-shaved bone 12/2021 [facility] 03[facility]2022 [facility] - [place] [facility] [place] [facility] [place] [facility] - Cervical spine surgery 02/2023
--- OUTSIDE RECORDS SUMMARY | 2025-02-18 12:57 | XMS_ITS | Clinical Summary ---
Author Organization [facility] Address [address] [place] [address] Care Team Providers Care Board Mixer Tender Name Role Phone Cayla Peñaloza NP Primary Care Provider [phone] Social History Tobacco Use Types Packs/Day Years [...] age to complete this topic Care Teams Board Mixer Tender Relationship Specialty Start Date End Date Cayla Peñaloza, SCOW DERRICK OPERATOR [address] [facility] [phone] PCP - General Family Medicine 03/20/19
--- OUTSIDE RECORDS SUMMARY | 2025-02-18 12:57 | XMS_ITS ---
Author Organization [facility] Address [address] [place] [address] Care Team Providers Care Plywood Layup Line Back Feeder Name Role Phone Anabela CANTRELL, Cayla Primary Care Provider Getachew De Dios Jr [phone] REASON FOR VISIT screening,hx polyps Encounters Encounter Location Date Provider Diagnosis [facility] [place] Out[place] [address] [place] [phone] 01/10/2024 Getachew Toscano Jr Encounter for screening colonoscopy Z12.11 and Personal history of colonic polyps Z86.010 Assessments Encounter Date Diagnosis (ICD Code) Assessment Notes Treatment Notes Treatment Clinical Notes Section Notes 01/10/2024 Encounter for screening colonoscopy (ICD-10 - Z12.11) 01/10/2024 Personal history of colonic polyps (ICD-10 - Z86.010) Plan Of Treatment No Information Progress Notes * BEAR KRAUSE MDOB: (64 yo F)Acc No.[id number]:01/10/2024 COLON WITH MAC Patient:?AMANDA KRAUSE Provider:?Getachew Toscano MD :1960???Age:63 Y???Sex:Female D ate:01/10/2024 Address:[address] [place], [place] [id number] Pcp:Cayla Peñaloza NP Subjective: * Chief Complaints: * ???1. Screening,hx polyps. * Medical History:? Objective: * Vitals:? Assessment: * Assessment: 1.?Encounter for screening c olonoscopy - Z12.11 (Primary)???2.?Personal history of colonic polyps - Z86.010??? Plan: * Treatment: * Procedure Codes:?28579 DIAGN OSTIC COLONOSCOPY * Preventive Medicine:? ??JACQUELINE [...] Toscano MD Date:?0 01/10/2024 Generated for Rehan sullivan/Wali/eTjohansmitting on:?02/18/2025 12:57 PM EDT
--- OUTSIDE RECORDS SUMMARY | 2025-02-18 12:57 | XMS_ITS | Clinical Summary ---
Author Organization [facility] Address [address] [place] [address] Care Team Providers Care Office Administration Name Role Phone Cayla Peñaloza NP Primary Care Provider [phone] Allergies Active Allergy Reactions Criticality Noted Date Comments Amoxicillin-Pot Clavulanate Unknown/Shanique ent and Family Unable to Define,Rash/Dermatitis Medium 04/03/2012 Aripiprazole Unknown/Patient and Family Unable to Define Medium 04/11/2021 Duloxetine Hcl Unknown/Patient and Family Unable to Define Medium 04/11/2021 Ibuprofen Unknown/Patient and Family Unable to Define Medium 01/16/2022 Penicillin G Unknown/Patient and Family Unable to Define Medium 04/11/2021 Medications amLODIPine (NORVASC) 2.5 MG tablet Take 2.5 mg by mouth daily. 2 Active buPROPion (WELLBUTRIN XL) 300 MG 24 hr tablet Take 300 mg by mouth every morning. 2 Active docusate sodium (COLACE) 100 MG capsule Take 100 mg by mouth daily. 1 Active gabapentin (NEURONTIN) 300 MG capsule Take 900 mg by mouth 3 (three) times a day. 2 Active hydroxychloroqu ine (PLAQUENIL) 200 MG tablet Take 200 mg by mouth 2 (two) times a day. 2 Active Euthyrox 88 MCG tablet Take 88 mcg by mouth daily on an empty stomach. 2 Active metFORMIN (GLUCOPHAGE) 850 MG tablet Take 850 mg by mouth 2 (two) times a day. 1 Active OMEprazole (PriLOSEC) 20 MG capsule Take 20 mg by mouth daily. 1 Active oxybutynin (DITROPAN-XL) 10 MG 24 hr tablet Take 10 mg by mouth daily. 2 Active oxyCODONE (ROXICODONE) 10 mg immediate release tablet Take 20 mg by mouth 3 (three) times a day. 2 Active OxyCONTIN 20 MG ER (extended release) tablet Take 20 mg by mouth twice daily (every 12 hours). 2 Active simvastatin (ZOCOR) 20 MG tablet Take 20 mg by mouth every evening. 2 Active traZODone (DESYREL) 50 MG tablet Take 50 mg by mouth nightly as needed for sleep. 2 Active venlafaxine (EFFEXOR-XR) 150 MG 24 hr capsule Take 150 mg by mouth daily. 2 Active acetaminophen (TYLENOL) 325 MG tablet Take 325 mg by mouth 4 (four) times a day. Active metroNIDAZOLE (FLAGYL) 500 MG tabletIndicatio ns:Abscess of communications designer space of mouth Take 1 tablet (500 mg total) by mouth 2 (two) times a day. Take with meals or food to reduce stomach upset. 44 tablet 2 Active cephalexin (KEFLEX) 500 MG capsuleIndicati ons:Abscess of communications designer space of mouth Take 2 capsules (1,000 mg total) by mouth 2 (two) times a day. 88 capsule 2 Active baclofen (LIORESAL) 5 MG tabletIndicatio ns:Abscess of communications designer space of mouth Take 3 tablets (15 mg total) by mouth 3 (three) times a day. 90 tablet 2 2 Active chlorhexidine (PERIDEX) 0.12 % oral solutionIndicat ions:Submandibu lar abscess Apply 15 mL to the mouth or throat 3 (three) times a day in the morning, afternoon and the early evening.. 473 mL 1 2 Active Active Problems Problem Noted Date Diagnosed Date Abscess of communications designer space of mouth 01/16/2022 Overview (01/16/2022): Added automatically from request for surgery [id number] Facial abscess 01/16/2022 Family History Medical History [...] at Not on file Legal Sex Female 6:39 PM EST Gender Identity Not on file [...] on patient's age to complete this topic Insurance [facility] MEDICARE Advance Directives * Full Code (Latest Code Status on File) Date Activated Date Inactivated Comments 01/16/2022 11:40 PM Care Teams Office Administration Relationship Specialty Start Date End Date Cayla Peñaloza NP [address] [place] [phone] PCP - General Family Medicine 01/16/22
--- OUTSIDE RECORDS SUMMARY | 2025-02-18 12:57 | XMS_ITS ---
Author Organization [facility] Address [address] [place] [address] Care Team Providers Care Case Hardener Name Role Phone John Candice Primary Care Provider Diaz dayna Aria Dodd [phone] REASON FOR VISIT cx 06/08 Encounters Encounter Location Date Provider Diagnosis [address] [address] 06/08/2024 Aria Yousif Plan Of Treatment Next Appt Details Provider Name:Aria Arnold Yousif , 04/19/2025 02:15:00 PM, [address] [place] [address], [phone], Progress Notes * Evelyne CLAUDIO MDOB: (63 yo F)Acc No.[id number]:06/08/2024 Patient:?Felicity Claudio :1960???Age:63 Y???Sex:Female Address: [place] [address] * true * Date:? Generated for Printi ng/Faxing/eTransmitting on:?02/18/2025 12:56 PM EDT
--- OUTSIDE RECORDS SUMMARY | 2025-02-18 12:57 | XMS_ITS | Clinical Summary ---
Author Organization [facility] Address [address] [place] [address] Phone Care Team Providers Care Cook Ship Name Role Phone Lilo Davis Primary Care Provider [phone] Allergies Active Allergy Reactions Criticality Noted Date [...] getting referral to cardiology Dr. Taylor at [facility]. She has history of lymphedema, her right [...] answered. 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 ([facility] V24, [facility] V28) 04/20/2020 Overview (08/31/2024): Last Assessment & Plan: Managed by rheumatology, taking hydroxychloroquine and sulfasalazine Pyogenic inflammation of bone ([facility] V24, [facility] V28) 12/02/2019 Lichen sclerosus 07/29/2018 [...] 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 ([facility] V24, [facility] V28) 10/17/2017 Overview (08/31/2024): Last Assessment & Plan: Labs as ordered for treatment evaluation, she notes very sedentary lifestyle Status post total left knee replacement 10/17/20 17 Depression, major, recurrent , in partial remission ([facility] V24) 06/02/2015 Major depressive disorder, r ecurrent episode, in partial remission ([facility] V24) 06/18/2013 Opioid type dependence ([facility] V24, [facility] V28 ) 05/21/2013 Overview (08/31/2024): IMO update Alcohol abuse 04/03/2012 Back pain 04/03/2012 DJD (degenerative joint disease) of knee 012 Hypercholesteremia 04/03/2012 Hypertension 04/03/2012 Obesity 04/03/2012 Tobacco dependence 04/03/2012 Encounters Date Type Department Care Team Description 02/16/2025 3:42 PM EDT Hospital Encounter [facility] Neurodiagnostic [address] [place] [id number] Left elbow pain 02/01/2025 1:45 PM EDT Office Visit Orthopedic Surgery - [place] 175 [facility] [address] [place] [phone] Laurel Haynes PA Left elbow pain (Primary Dx) 12/24/2024 Telephone [address] [facility] 175 [facility] [address] [place] [address] Lakesha Perkins MA from Last 3 Months Immunizations Name Administration [...] mellitus type 2, co ntrolled, with complications ([facility] V24, [facility] V28) DX:Diabetes mellitus type 2, controlled, with complications ([facility]) Esophageal reflux DX:Esophageal reflux Anxiety state DX:Anxiety state Depressive disorder DX:Depressiv e disorder Hyperlipidemia DX:Hyperlipidemi a Essential hypertension DX:Essent ial hypertension Rheumatoid arthritis (CMS/ C V24, [facility] V28) DX:Rheumatoid arthritis ([facility] ); COMMENT: Severe in the right knee; [...] by week 4 Care Plan Impaired Tissue No Sandra Briggs RN Wound volume breakdown reduced by X% by week 8 Care Plan Impaired Tissue No Sandra Briggs RN Wound volume breakdown reduced by X% by week 12 Care Plan Impaired Tissue Sandra Dodson RN Quit using tobacco (cigarettes, smokeless, etc) Care Plan Education needed on impact of smoking on wound Sandra Dodson RN Reduce tobacco use (cigarettes, smokeless, etc) Care Plan Education needed on impact of smoking on wound Sandra Ddoson RN Decrease Wound Volume by X% by date (in notes) Care Plan Education needed on impact of smoking on wound Sandra Dodson RN Patient and Caregiver Understand Wound Care Education Care Plan Education needed related to ulceration/compr omised skin integrity. Sandra Dodson RN Medical Devices Implanted Type Area Hr Coordinator Device Identifier Shelf Expiration Date Model / Serial / Lot Joints Knee Joints Knee Bilateral : Knee Procedures Procedure Name Priority Date/Time Associated Diagnosis Comments EMG 1 LIMB Routine 02/16/2025 4:22 PM EDT Left elbow pain ANNUAL BMP BLOOD TEST Routine 12/04/2023 HEMOGLOBIN A1C Routine 12/04/2023 LIPID PANEL Routine 12/04/2023 from Last 3 Months or Most Recently Relevant to Health Maintenance Results * EMG one limb (02/16/2025 4:22 PM EDT) Narrative Nannette Gonzalez MD - 02/16/2025 4:32 PM EDT Please see the attached report Procedure Note Nannette Gonzalez MD - 02/16/2025 Please see the attached report us Laurel [facility] NEUROLOGY ORDERABLES Final Re sult * Annual BMP Blood Test (12/04/2023) Pathologist [facility] Annual BMP Blood Test Abstarcted [facility] Provider HEALTH MAINTENANCE Final Result * Hemoglobin A1c (12/04/2023) Pathologist [facility] Hemoglobin A1C 0.0 % Comment:No Interpretation, A bstracted Blood Venous blood specimen / Unknown [facility] Provider LAB BLOOD ORDERABLES Madelaine l Result * Lipid panel (12/04/2023) Pathologist [facility] LDL/HDL Ratio 0 Comment:No Interpretation, A bstracted Triglycerides 0 mg/dL Comment:No Interpretation, A bstracted Cholesterol 0 mg/dL Comment:No Interpretation, A bstracted HDL 0 mg/dL Comment:No Interpretation, A bstracted LDL Cholesterol 0 mg/dL Comment:No Interpretation, A bstracted Blood Venous blood specimen / Unknown [facility] Provider LAB BLOOD ORDERABLES Madelaine l Result from Last 3 Months or Most Recently Relevant to Health Maintenance Additional Health Concerns Active Problems Noted Date Diagnosed Date Impaired Tissue 09/22/2024 Education needed on impact of smoking on wound 1 11/22/2023 Education needed related to ulceration/compromised skin integrity. 09/22/2024 Insurance [facility] MEDICARE ADVANTAGE Care Teams Cook Ship Relationship Specialty Start Date End Date Lilo Davis PA [address], [address] [place] [address] PCP - General 02/01/25
--- OUTSIDE RECORDS SUMMARY | 2025-02-18 12:57 | XMS_ITS ---
Author Organization [facility] Address [address] [place] [address] Care Team Providers Care Structural Designer Name Role Phone Cayla Peñaloza NP Primary Care Provider Getachew De Dios Jr Unavailable [phone] Allergies Allergen (clinical drug ingredient) Drug/Non Drug [...] Problem Status W/U Status Risk Notes Problem 500354426 Personal history of colonic polyps (Z86.010) Active confirmed Problem 09246486 Drug-induced constipation (K59.03) Active confirmed Problem 998519327 Colon cancer screening (Z12.11) Active confirmed Problem 999071055 Gastroesophageal reflux disease, unspecified whether esophagitis present (K21.9) Active confirmed Vital Signs Temperature 97.7 degrees Fahrenheit 11/27/19 24 Blood pressure systolic 000 mm Hg 11/27/19 24 Blood pressure diastolic 00 mm Hg 024 Height 63.5 in 11/27/2023 Weight 171 lb 5 oz lbs 11/27/2023 BMI 29.87 kg/m2 11/27/2023 Encounters Encounter Location Date Provider Diagnosis [facility] [address] [place] [address] 11/27/2023 Getachew Toscano Jr Drug-induced constipation K59.03 [...] * BEAR KRAUSE MDOB: (63 yo F)Acc No.[id number]:11/27/2023 Progress Notes Patient:?AMANDA KRAUSE Provider:?Getachew Toscano MD :1960???Age:63 Y???Sex:Female D ate:11/27/2023 Address:[address] [place], [place] [id number] Pcp:Cayla Peñaloza NP Subjective: * Chief Complaints: [...] MD Date:?0 11/27/2023 Generated for Rehan sullivan/Wali/eTransmitting on:?02/18/2025 12:57 PM EDT History and Physical Notes * [...]
--- OUTSIDE RECORDS SUMMARY | 2025-02-18 12:57 | XMS_ITS ---
Author Organization [facility] Address [address] [place] [address] Care Team Providers Care Fish Salter Name Role Phone Candice John Primary Care Provider Aria Day [phone] Encounters Encounter Location Date Provider Diagnosis [facility] [address] [place] [address] 06/08/2024 Aria Dodd Plan Of Treatment Next Appt Details Provider Name:Aria Dodd , 04/19/2025 02:15:00 PM, [address] [place] [address], [phone], Progress Notes * Evelyne CLAUDIO MDOB: (64 yo F)Acc No.[id number]:06/08/2024 Progress Note Patient:?Felicity CLAUDIO Provider:?Aria Dodd DPM :1960???Age:63 Y???Sex:Female D ate:06/08/2024 Address:[address] [place], [place] [address], [id number] Pcp:Candice John Subjective: * Chief Complaints: * ??? * Medical History:? Objective: * Vitals:? Assessment: Plan: * Treatment: * Images: * The named appointment provid er may or may not be the originator of this progress note, and it is not deemed complete until electronically signed by the appointment provider. Sign off status: Pending * Provider:?Aria Dodd DPM Date:?2023 Generated for Rehan sullivan/Wali/Elba on:?02/18/2025 12:57 PM EDT
--- OUTSIDE RECORDS SUMMARY | 2025-02-18 12:57 | XMS_ITS | Encounter Summary ---
Author Organization [facility] Address [address] [place] [address] Care Team Providers Care Solar Installation Manager Name Role Phone Lilo Davis Primary Care Provider [phone] Reason for Referral * Neurology (Routine) - Authorized Specialty Diagnoses / Procedures Referred By Tiffani smart Referred To Contact Neurology Diagnoses Left elbow pain Procedures EMG one limb Laurel Haynes PA [address] [address] Phone: tel: fax: [address] [address] Phone: tel: fax: Referral ID Status Reason Start Date Expiration Date V isits Requested Visits Authorized [id number] Authorized 02/01/2025 02/01/2026 1 1 Reason for Visit * Neurology (Routine) - Authorized Specialty Diagnoses / Procedures Referred By Tiffani smart Referred To Contact Neurology Diagnoses Left elbow pain Procedures EMG one limb Laurel Haynes PA [address] [facility] [address] [place] [address] Phone: tel: fax: [facility] [address] [address] Phone: tel: fax: Referral ID Status Reason Start Date Expiration Date V isits Requested Visits Authorized [id number] Authorized 02/01/2025 02/01/2026 1 1 Encounter Details Date Type Department Care Team (Latest Contact Info) Description 02/16/2025 3:42 PM EDT Hospital Encounter [facility] Neurodiagnostic [address] [place] [address] Left elbow pain Social History Tobacco Use Types Packs/Day Years Used Date Smoking Tobacco: Every Day Cigarettes 1.5 44.3 Started: 1980 Passive Smoke Exposure: Past Smokeless Tobacco: Never Alcohol Use Standard Drinks/Week Comments Yes 6 (1 standard drink = 0.6 oz pur e alcohol) Comments Unknown Sex and Gender Information Value Date Recorded Sex Assigned at Not on file Legal Sex Female 1:18 PM EST Gender Identity Not on file Sexual Orientation Not on file documented as of this encounter Plan of Treatment Not on file documented as of this encounter Goals Goal Patient Goal Type Associated Problems Recent Progress Patient-Stated? Author Wound volume breakdown reduced by X% by week 4 Care Plan Impaired Tissue No Sandra Briggs RN Wound volume breakdown reduced by X% by week 8 Care Plan Impaired Tissue No Sandra Briggs RN Wound volume breakdown reduced by X% by week 12 Care Plan Impaired Tissue No Sandra Briggs RN Quit using tobacco (cigarettes, smokeless, etc) [...] needed related to ulceration/compr omised skin integrity. No Sandra Briggs RN documented as of this encounter Procedures Procedure Name Priority Date/Time Associated Diagnosis Comments EMG 1 LIMB Routine 02/16/2025 4:22 PM EDT Left elbow pain documented in this encounter Results * EMG one limb (02/16/2025 4:22 PM EDT) Narrative Nannette Gonzalez MD - 02/16/2025 4:32 PM EDT Please see the attached report Procedure Note Nannette Gonzalez MD - 02/16/2025 Please see the attached report us Laurel [facility] ORDERABLES Final Re sult documented in this encounter Visit Diagnoses Diagnosis Left elbow pain Pain in joint, upper arm documented in this encounter Additional Health Concerns Active Problems Noted Date Diagnosed Date Impaired Tissue 09/22/2024 Education needed on impact of smoking on wound 1 11/22/2023 Education needed related to ulceration/compromised skin integrity. 09/22/2024 Assessment Noted Time PHQ-9 Depression Total Score: 19 024 1:07 PM EST documented as of this encounter Care Teams Solar Installation Manager Relationship Specialty Start Date End Date Lilo Davis PA [address] [facility], [address] [place] [address] PCP - General 02/01/25 documented as of this encounter
--- OUTSIDE RECORDS SUMMARY | 2025-02-18 12:58 | XMS_ITS ---
Author Organization [facility] Address [address] [facility] [place] [address] Care Team Providers Care Scorer Single Name Role Phone Alvaro Candice Primary Care Provider Diaz dayna Aria Dodd Unavailable [phone] Jun Limon Unavailable [phone] REASON FOR VISIT [employer]. Encounters Encounter Location Date Provider Diagnosis [address] [address] 04/22/2024 Jun Limon Plan Of Treatment Next Appt Details Provider Name:Aria Arnold Yousif , 04/19/2025 02:15:00 PM, [address] [place], [address], Progress Notes * Evelyne CLAUDIO MDOB: (63 yo F)Acc No.[id number]:04/22/2024 Patient:?Felicity Claudio :1960???Age:63 Y???Sex:Female Address:[address] [place] [address] [place] [address] * true * Date:? Generated for Printi ng/Fayamiletg/eTransmitting on:?02/18/2025 12:57 PM EDT
--- OUTSIDE RECORDS SUMMARY | 2025-02-18 12:58 | XMS_ITS | Continuity of Care Document ---
Author Organization [facility] Address [address] [place] [address] Phone Care Team Providers Care Employee Benefits Manager Name Role Phone Flavio RIBEIRO, RVLeanne, NO, [...] E&M Established 15 Mins- CT & [place] [facility], [address], [id number], [place] tel:[phone] CV[facility] - [place] [facility] [place] Varicose veins of bilateral lower extremities with other complication sLymphedema, not elsewhere classified 4 Flavio RIBEIRO RVT, NO Davila. [address] [address], [place], [place], [id number], [place]. tel:[phone] Referring Provider: Cayla Peñaloza NP, [address] [facility] [place], [address]. tel:[phone] [facility], [address] [place] [address] [address], [id number], [place] tel:[phone] [facility] Encounter for follow-up examination after completed treatment for conditions other than malignant neChronic venous hypertension (idiopathic) with other complication s of bilateral lower extremity 4 Flavio RIBEIRO RVT, NO Davila. [address] [address], [place], [place], [id number], [place]. tel:[phone] Referring Provider: Cayla Peñaloza NP, [address] [facility] [place], [address]. tel:[phone] [facility], [address] [place] [address] [address]J[place], [id number], [place] tel:[phone] CVR - [place] Varicose veins of left lower extremity with other complication s 4 Wyatt Briceno. [address] [facility] [address], [place], [place], [id number], [place]. tel:[phone] Referring Provider: Cayla Peñaloza NP, [address] [facility] [place], [address]. tel:[phone] [facility], [address] [place] [address] [address] [place], [id number], [place] tel:[phone] CV[place] Encounter for follow-up examination after completed treatment for conditions other than malignant nePain in right leg 0 4 Flavio RIBEIRO RVT, NO Davila. [address] [place] [address], Suite [facility], [place], [id number], [place]. tel:[phone] Referring Provider: Cayla Peñaloza NP, [address] [facility] [place], [address]. tel:[phone] [facility], [address] [place] [address] [address], [id number], [place] tel:[phone] [place] Chronic venous hypertension (idiopathic) with inflammation of right lower extremity Nov- 4 Flavio RIBEIRO RVT, NO Davila. [address] [place] [address], Suite [facility], [place], [id number], [place]. tel:[phone] Referring Provider: Cayla Peñaloza NP, [address] [place] [address] [place] [address] [place], [address]. tel:[phone] [facility], [address] [place] [address] Dr [address] [place], [id number], [place] tel:[phone] [place] Encounter for follow-up examination after completed treatment for conditions other than malignant neVaricose veins of right lower extremity with pain Nov- 4 Flavio RIBEIRO RVT, NO Davila. [address] [place] [address], [address] [address], [place], [id number], [place]. tel:[phone] Referring Provider: Cayla Peñaloza NP, [address] [facility] [address] [facility] [place], [address]. tel:[phone] [facility], [address] [place] [address] [address] [place], [id number], [place] tel:[phone] CVR - [facility] Varicose veins of right lower extremity with other complication s 4 Flavio RIBEIRO RVT, RPVI Robert. [address] [place] [address], [address], [place], [id number], [place]. tel:[phone] Referring Provider: Cayla Peñaloza NP, [address] [facility] [place], [address]. tel:[phone] Offic/outpt E&m Estab 5 Min Trial - [facility], [address] [place] [address] [address] [place], [id number], [place] tel:[phone] [facility] Localized edemaCramp and spasmRestles s legs syndromeVeno us insufficienc y (chronic) (peripheral) Disorder of pigmentation , unspecified 3 Wyatt Briceno. [address] [facility][[address], [facility] [place], [id number], [place]. tel:[phone] Referring Provider: Cayla Peñaloza NP, [address] [facility] [address] [facility] [place], [address]. tel:[phone] Offic Cons New/estab Mod-hi 60 [facility], [address] [place] [address] [address]J[place], [id number], [place] tel:[phone] CV - [facility] Varicose veins of bilateral lower extremities with other complication sVaricose veins of right lower extremity with inflammation Varicose veins of left lower extremity with inflammation Localized edemaRestles s legs syndromeLymp hedema, not elsewhere classifiedDi sorder of pigmentation , unspecifiedH ereditary lymphedemaCr amp and spasm Jul- 3 Pranay RIBEIRO FACS RVT RPGEMA [place]. [address] [facility] [address], [facility] [place], [address], [place]. tel:[phone] Referring Provider: Cayla Peñaloza NP, [address] [facility] [place], [address]. tel:[phone] [place] [facility], [address] [place] [address] [address] [place], [id number], [place] tel:[phone] [facility] Chronic venous hypertension (idiopathic) with other complication s of bilateral lower extremity 3 Pranay RIBEIRO FACS RVT NO [place]. [address] [facility], [address], [facility] [place], [address], [place]. tel:[phone] Referring Provider: Cayla Peñaloza COMMUNITY AMBASSADOR, [address] [place] [address] Dr [address] [employer] [facility] In , [place], [address]. tel:[phone] Family History Family Member Type Diagnosis Age At Onset No Information Payers Payer name Insurance type Covered green party ID Thea alejandra(s) [employer] [place] [employer] [place] [id number] Social History Type Description Quantity Date Captured [...]
--- OUTSIDE RECORDS SUMMARY | 2025-02-18 12:58 | XMS_ITS | Patient Health Record ---
Author Organization [facility] Address [address] [place] [address] Care Team Providers Care Academic Registrar Name Role Phone Anabela CANTRELL, Cayla Primary [...] Problem Status W/U Status Risk Notes Problem 641559818 Colon cancer screening (Z12.11) Active confirmed Problem 807864328 Personal history of colonic polyps (Z86.010) Active confirmed Problem 46167821 Drug-induced constipation (K59.03) Active confirmed Problem 926620278 Gastroesophageal reflux disease, unspecified whether esophagitis present (K21.9) Active confirmed Plan Of Treatment Future Test Test Name Order Date COLONOSCOPY 11/04/2014 COLONOSCOPY 11/27/2023 Insurance Providers Payer Name Payer Address Payer Phone Subscriber Number Group Number Insured Name Patient Relationship to Insured Coverage Start Date Coverage End Date [facility] [address] [place] [address] [phone] [id number] BEAR KRAUSE Self - patient is the [...]
== END 2025-02-18 11:42 | disposition home or self-care (01) ==
PROVIDERS: Visit Provider Internal Medicine Cardiovascular Disease
DX: R60.0 Localized edema (principal)
CPT/HCPCS: 93010; 99214; G2211

== ENCOUNTER → 2025-02-18 10:59 | Outpatient (BNVA) | payer MEDICARE, SELFPAY | PROVIDERS: PCP Internal Medicine; Visit Provider Internal Medicine Cardiovascular Disease | DX: R60.0 Localized edema (principal); I10 Essential (primary) hypertension; I73.9 Peripheral vascular disease, unspecified; F17.210 Nicotine dependence, cigarettes, uncomplicated | CPT/HCPCS: 93005; 99212 ==

== ENCOUNTER 2025-02-22 13:54 | Outpatient (AMB) | payer MEDICARE, SELFPAY ==
[2025-02-22 14:02] VITALS: BP 162/79; PULSE 77; RESP 16; O2SAT 94; BMI 33.5
--- NOTE | 2025-02-22 14:02 | A.OFFVIS_ITS ---
Vital Signs 02/22/25 14:02 Height 5 ft 2 in Weight 183 lb BMI 33.5 BP 162/79 H Blood Pressure Location Lt brachial Position Sitting Respiration 16 Pulse 77 Pulse Source Pulse Oximeter Pulse Oximetry (%) 94 Oxygen Delivery Method Room Air Intake Visit Reasons: Low Back Pain Missile Inspector Preflight Required: No Allergies lisinopril Allergy (Intermediate, Verified 02/22/25 14:04) Swelling clavulanic acid [From Augmentin] Allergy (Mild, Verified 02/22/25 14:04) RASH aripiprazole [From ABILIFY] Adverse Reaction (Intermediate, Verified 02/22/25 14:04) EDEMA duloxetine [From CYMBALTA] Adverse Reaction (Intermediate, Verified 02/22/25 14:04) WT GAIN/EDEMA Medication List - Last Reconciled 02/22/25 by Isabella Sarabia LPN albuterol sulfate 90 mcg/actuation 1 puff inhalation Q4H baclofen 10 mg PO TID PRN blood sugar diagnostic (FreeStyle Lite Strips) bupropion HCl XL 300 mg PO DAILY clotrimazole-betamethasone 1-0.05 % 1 appl topical BID cyclobenzaprine 10 mg PO TID docusate sodium 100 mg PO BID furosemide 40 mg (2 x 20 mg) PO DAILY hydroxychloroquine 200 mg PO BID ibuprofen 600 mg PO Q8H PRN levothyroxine 88 mcg PO DAILY magnesium oxide 400 mg PO ONCE omeprazole 20 mg PO DAILY oxybutynin chloride ER 1 tab PO DAILY oxycodone ER 10 mg PO Q12H oxycodone ER (OxyContin) 15 mg PO BID pregabalin 75 mg PO TID simvastatin 1 tab PO BEDTIME sulfasalazine 1 g (2 x 500 mg) PO BID NS trazodone 50 mg PO BEDTIME venlafaxine ER 150 mg PO DAILY HPI Comments Details: Evelyne is back in my office for the follow-up. She received left-sided medial branch block with good results. The results were good enough for her to not to come for the right-sided injection C2-C3 C4. However apparently she came to my office today to discuss ?the review of my medications ?. The patient had multiple surgeries on her lumbar and thoracic spine. She was previously on oxycodone 10 mg 5 times a day as well as OxyContin 10 mg twice a day. When her primary care provider decided to decrease her oxycodone to the level of 10 mg 3 times a day the patient started to complain on worsening pain, she thought today that I would recommend her primary care provider to return her medication to previous level of oxycodone 10 mg 5 times a day and OxyContin 10 mg twice a day. I explained to the patient that unfortunately I will not be able to prescribe her this exuberant doses of the opioid medications. And therefore if I am not able to prescribe her those medications I can not recommend another provider to prescribe the same. The patient is obviously as tolerant to opioid medications. She also reports on rare occasion to take more medication that she prescribes. Unlikely she is a good candidate for chronic opioid therapy in this office. [facility] Medical History Diabetes History of pulmonary embolism Nicotine dependence, cigarettes, uncomplicated Overactive bladder Thyroid disease Elevated cholesterol Spinal stenosis Anxiety Depression HTN (hypertension) Constipation GERD (gastroesophageal reflux disease) Mass of right thigh Long-term use of hydroxychloroquine Alcohol abuse Chronic bronchitis Seronegative rheumatoid arthritis Pilonidal cyst Neuropathy Carpal tunnel syndrome Rheumatoid arthritis Osteomyelitis Osteoarthritis Pleurisy Surgical History History of thoracic spinal fusion Hx of cervical spine surgery History of elbow surgery H/O colonoscopy History of total right knee replacement (TKR) H/O hernia repair History of surgery on arm History of left knee replacement (~2017) Previous back surgery (~2016) Family History Mother CHF (congestive heart failure) Stroke Uterine cancer Father CHF (congestive heart failure) Sister Diabetes Brother Diabetes Pulmonary embolism Other Mental health disorder Substance use disorder Social History Household Members: None Housing: Apartment Are you a primary intensive care nurse to a significant other at home: No Unable to assess alcohol history related to: Unable to respond Alcohol intake: current Alcohol intake frequency: a few times a week Alcohol type: hard liquor Patient Tobacco Use Status: Current everyday Tobacco user Tobacco use type: Cigarette Cigarette Packs Per Day: 1.5 Cigarettes Per Day: 30.0 Years Smoked: 40 e-Cigarette/Vaping Use: Never Used Second Hand Smoke Exposure: Yes Substance Use Type: Marijuana service: No Current occupational status: unemployed Cognitive needs: Yes (walker, cane) Hearing needs: No Vision needs: Yes (Reading glasses) Review of Systems Const All systems reviewed & are unremarkable except as noted in HPI and below Physical Exam Vital Signs: Last Vital Signs Pulse 77 02/22/25 14:02 Resp 16 02/22/25 14:02 BP 162/79 H 02/22/25 14:02 Pulse Ox 94 02/22/25 14:02 Oxygen Delivery Method Room Air 02/22/25 14:02 BMI result Body Mass Index 33.5 Const General: cooperative, comfortable and no acute distress Orientation/consciousness: patient oriented x3 Limitations: ambulation with cane HEENT Head: Yes normocephalic Neck Other: Limited range of motion of the cervical spine tenderness on palpation on paraspinal spinal region mostly on the left. Due to report of retrolisthesis maneuvers were not performed Neck: Yes normal visual inspection and No full ROM Resp Effort & Inspection: normal respiratory effort and able to speak in complete sentences Cardio Rate: regular rate Rhythm: regular rhythm GI Inspection: No distended Palpation (GI): Soft to palpation and nontender Neuro General: patient oriented x3 Extrem Other: osteoarthritic changes of both hands Left 2nd MCP swelling and tenderness, left 2nd PIP swelling and tenderness Few tender MCPs and PIPs bilaterally Significant swelling of the entire right leg with edema Claw deformities of her left toes nontender to palpation. Negative MTP squeeze test Feet are numb Assessment & Plan Assessment & Plan (1) Cervicalgia: Code(s): M54.2 - Cervicalgia Category: Medical Plan: (2) Postlaminectomy syndrome, cervical: Code(s): M96.1 - Postlaminectomy syndrome, not elsewhere classified Category: Medical Plan: (3) Arthropathy of cervical facet joint: Code(s): M47.812 - Spondylosis without myelopathy or radiculopathy, cervical region Category: Medical (4) Spondylosis, cervical: Code(s): M47.812 - Spondylosis without myelopathy or radiculopathy, cervical region Category: Medical Plan: The patient received the left-sided C2-C3 C4 diagnostic medial branch block. She reported good pain relief on this injection alone. Although we were trying to schedule her for the right-sided injection she never showed up. She today insists on ?revision of my medication ?. Discussion see as above. I would never be able to prescribe such doses of the medications, I would not be possibly recommending such doses to any other provider. . (5) Chronic pain syndrome: Code(s): G89.4 - Chronic pain syndrome Category: Medical Plan: No new appointment with this patient. Appointment only needed if she wants to discuss interventional pain management. Plan Patient Instructions: I here by testify that I spent 32 minutes in conversation with this patient as well as planning her care and organizing this note. Coding Level of Care Code Est Pt Level 4 (74744) Diagnoses Cervicalgia M54.2 Postlaminectomy syndrome, cervical M96.1 Arthropathy of cervical facet joint M47.812 Spondylosis, cervical M47.812 Chronic pain syndrome G89.4
--- OUTSIDE RECORDS SUMMARY | 2025-02-22 16:39 | XMS_ITS | Clinical Summary ---
Author Organization [facility] Address [address] [place] [address] Care Team Providers Care Content Director Name Role Phone Cayla Peñaloza NP Primary Care Provider [phone] Social History Tobacco Use Types Packs/Day Years [...] age to complete this topic Care Teams Content Director Relationship Specialty Start Date End Date Cayla Peñaloza, ARBITRATOR [address] [facility] [id number] PCP - General Family Medicine 03/20/19
--- OUTSIDE RECORDS SUMMARY | 2025-02-22 16:39 | XMS_ITS | Clinical Summary ---
Author Organization [facility] Address [address] [place] [address] Phone Care Team Providers Care Project Management Name Role Phone Lilo Davis Primary Care Provider [phone] Allergies Active Allergy Reactions Criticality Noted Date [...] getting referral to cardiology Dr. Taylor at [facility]. She has history of lymphedema, her right [...] answered. 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 ([facility] V24, [facility] V28) 04/20/2020 Overview (08/31/2024): Last Assessment & Plan: Managed by rheumatology, taking hydroxychloroquine and sulfasalazine Pyogenic inflammation of bone ([facility] V24, [facility] V28) 12/02/2019 Lichen sclerosus 07/29/2018 Slow transit [...] 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 ([facility] V24, [facility] V28) 10/17/2017 Overview (08/31/2024): Last Assessment & Plan: Labs as ordered for treatment evaluation, she notes very sedentary lifestyle Status post total left knee replacement 10/17/20 17 Depression, major, recurrent , in partial remission ([facility] V24) 06/02/2015 Major depressive disorder, r ecurrent episode, in partial remission ([facility] V24) 06/18/2013 Opioid type dependence ([facility] V24, [facility] V28 ) 05/21/2013 Overview (08/31/2024): IMO update Alcohol abuse 04/03/2012 Back pain 04/03/2012 DJD (degenerative joint disease) of knee 012 Hypercholesteremia 04/03/2012 Hypertension 04/03/2012 Obesity 04/03/2012 Tobacco dependence 04/03/2012 Encounters Date Type Department Care Team Description 02/16/2025 3:42 PM EDT - 02/16/2025 11:59 PM EDT Hospital Encounter [facility] Neurodiagnostic [address] [place] [id number] Left elbow pain Discharge Disposition: Home or Self Care 02/01/2025 1:45 PM EDT Office Visit Orthopedic Surgery [facility] [address] [facility] [address] [place] [phone] Laurel Haynes PA Left elbow pain (Primary Dx) 12/24/2024 Telephone Neurosurgery [place] [facility] [address] [facility] [address] [place] [address] Lakesha Perkins MA from Last 3 Months [...] mellitus type 2, co ntrolled, with complications (CMS/HCC V24, [facility] V28) DX:Diabetes mellitus type 2, controlled, with complications ([facility]) Esophageal reflux DX:Esophageal reflux Anxiety state DX:Anxiety state Depressive disorder DX:Depressiv e disorder Hyperlipidemia DX:Hyperlipidemi a Essential hypertension DX:Essent ial hypertension Rheumatoid arthritis (CMS/HC C V24, CMS/HCC V28) DX:Rheumatoid arthritis (HCC ); COMMENT: Severe [...] 02/01/2025 1:43 PM EDT Plan of Treatment Upcoming Encounters Date Type Department Care Team (Late st Contact Info) Description 02/25/2025 11:00 AM EDT Office Visit Orthopedic Surgery - [place] [address] [facility] [address] [place] [address] Laurel Haynes PA [address] [facility] [address] [place] [phone] Health Maintenance Due Date Last Done Comments [...] Dodson RN Medical Devices Implanted Type Area Stamp Analyst Device Identifier Shelf Expiration Date Model [...] - 02/16/2025 Please see the attached report La[facility] ORDERABLES Final Re sult * Annual BMP Blood Test (12/04/2023) Pathologist [facility] Annual BMP Blood Test Abstarcted Result [facility] Provider HEALTH MAINTENANCE Final Result * Hemoglobin A1c (12/04/2023) Pathologist [facility] Hemoglobin A1C 0.0 % Comment:No Interpretation, A bstracted Blood Venous blood specimen / Unknown Result [facility] Provider LAB BLOOD ORDERABLES Madelaine l Result * Lipid panel (12/04/2023) LDL/HDL Ratio 0 Comment:No Interpretation, A bstracted Triglycerides 0 mg/dL Comment:No Interpretation, A bstracted Cholesterol 0 mg/dL Comment:No Interpretation, A bstracted HDL 0 mg/dL Comment:No Interpretation, A bstracted LDL Cholesterol 0 mg/dL Comment:No Interpretation, A bstracted Blood Venous blood specimen / Unknown Result [facility] Provider LAB BLOOD ORDERABLES Madelaine l Result from Last 3 Months or Most Recently Relevant to Health Maintenance Additional Health Concerns Active Problems Noted Date Diagnosed Date Impaired Tissue 09/22/2024 Education needed on impact of smoking on wound 1 11/22/2023 Education needed related to ulceration/compromised skin integrity. 09/22/2024 [place] [address] [employer] Care Teams Project Management Relationship Specialty Start Date End Date Lilo Davis PA [address] [facility], [address] [place] [address] PCP - General 02/01/25
--- OUTSIDE RECORDS SUMMARY | 2025-02-22 16:39 | XMS_ITS ---
Author Organization [facility] Address [address] [place] [address] Care Team Providers Care Clipper And Turner Name Role Phone John Candice Primary Care Provider Diaz dayna Aria Dodd [phone] REASON FOR VISIT cx 06/08 Encounters Encounter Location Date Provider Diagnosis [address] [address] 06/08/2024 Aria Yousif Plan Of Treatment Next Appt Details Provider Name:Aria Arnold Yousif , 04/19/2025 02:15:00 PM, [address] [place] [address], [phone], Progress Notes * Evelyne CLAUDIO MDOB: (63 yo F)Acc No.[id number]:06/08/2024 Patient:?Felicity Claudio :1960???Age:63 Y???Sex:Female Address: [place] [address] * true * Date:? Generated for Printi ng/Faxing/eTransmitting on:?02/22/2025 04:39 PM EDT
--- OUTSIDE RECORDS SUMMARY | 2025-02-22 16:39 | XMS_ITS ---
Author Organization [facility] Address [address] [place] [address] Care Team Providers Care Collar Cutter Name Role Phone Candice John Primary Care Provider Aria Day [phone] Encounters Encounter Location Date Provider Diagnosis [facility] [address] [place] [address] 06/08/2024 Aria Dodd Plan Of Treatment Next Appt Details Provider Name:Aria Dodd , 04/19/2025 02:15:00 PM, [address] [place] [address], [phone], Progress Notes * Evelyne CLAUDIO MDOB: (64 yo F)Acc No.[id number]:06/08/2024 Progress Note Patient:?Felicity CLAUDIO Provider:?Aria Dodd DPM :1960???Age:63 Y???Sex:Female D ate:06/08/2024 Address:[address] [place], [place] [phone] Pcp:Candice John Subjective: * Chief Complaints: * ??? * Medical History:? Objective: * Vitals:? Assessment: Plan: * Treatment: * Images: * The named appointment provid er may or may not be the originator of this progress note, and it is not deemed complete until electronically signed by the appointment provider. Sign off status: Pending * Provider:?Aria Dodd DPM Date:?2023 Generated for Rehan sullivan/Wali/Elba on:?02/22/2025 04:39 PM EDT
--- OUTSIDE RECORDS SUMMARY | 2025-02-22 16:39 | XMS_ITS | Patient Health Record ---
Author Organization [facility] Address [address] [facility] [address] Care Team Providers Care Milling/Polishing Operator Name Role Phone Candice John Primary Care Provider Unavailabl e Aria Dodd Unavailable [phone] Jun Limon Unavailable [phone] Allergies Allergen (clinical drug ingredient) Drug/Non Drug [...] many cigarettes a day do you smoke? 09-16 Alcohol Screen Question Answer Notes Did you have a drink containing alcohol in the p ast year? Yes Points 0 Interpretation Negative Tobacco use other than smoking: Question Answer Notes Are you an other tobacco user? No Problems Problem Type SNOMED Code ICD Code Onset Dates Problem Status W/U Status Risk Notes Problem Acquired hammer toe of right foot (8574752837955188 ) Other hammer toe(s) (acquired), right foot (M20.41) Active confirmed Problem Acquired hammer toe of left foot (2280503093299156 ) Other hammer toe(s) (acquired), left foot (M20.42) Active confirmed Problem Polyneuropathy due to type 2 diabetes mellitus (749502493) Type 2 diabetes mellitus with diabetic polyneuropathy (E11.42) Active confirmed Problem Chronic ulcer of foot (158308090) Non-pressure chronic ulcer of other part of left foot with fat layer exposed (L97.522) Active confirmed Problem 32636382 Unsteady gait (R26.81) Active confirmed Problem 29740196 Smoker (F17.200) Active confirmed Problem 845071065 Charcot's joint of right foot (M14.671) Active confirmed Problem Localized, primary osteoarthritis of the ankle and/or foot (688771548) Arthritis of joint of lesser toe, left (M19.072) Active confirmed Problem Localized, primary osteoarthritis of the ankle and/or foot (155295036) Arthritis of joint of lesser toe, right (M19.071) Active confirmed Encounters Encounter Location Date Provider Diagnosis [facility] [address] [address] 04/22/2024 Jun Limon [facility] [address] [address] 06/08/2024 Aria Dodd Plan Of Treatment Pending Test Test Name Order Date X ray : Foot, right 3V 09/22/2013 57150-ZYZJKFG NAIL, 6 OR MORE 01/26/2014 38780-WGFZNOE NAIL, 6 OR MORE 05/24/2015 23582-DRSFMQC NAIL, 6 OR MORE 04/29/2013 27498-BIZKTUT NAIL, 6 OR MORE 07/14/2013 75997-YPHJUQP NAIL, 6 OR MORE 06/10/2015 66253-XTFHKQO NAIL, 6 OR MORE 08/02/2015 41542-WLRUEJI NAIL, 6 OR MORE 10/11/2020 25666-YOZASXC NAIL, 6 OR MORE 04/11/2021 26920-GLOVCVF NAIL, 6 OR MORE 07/18/2023 83104-NHHUUJD NAIL, 6 OR MORE 11/07/2023 72741-TFPWWIF NAIL, 6 OR MORE 02/20/2024 87798-Bffe Destruction, 1-14 02/20/2024 66145-Wozx Destruction, 1-14 07/18/2023 87821-Dkbm Destruction, 1-14 11/07/2023 87059-Uyun Destruction, 1-14 10/11/2020 81509-LHGR SKIN LESIONS, OVER 4 10/11/20 20 06857-EQYY SKIN LESIONS, OVER 4 02/20/20 24 14029-GMID SKIN LESIONS, OVER 4 11/07/19 24 02083-UAHL SKIN LESIONS, OVER 4 04/11/20 21 30214-DZBJ SKIN LESIONS, OVER 4 07/18/20 23 72591-WKPM SKIN LESIONS, 2 TO 4 08/02/20 15 58612-JXHG SKIN LESIONS, 2 TO 4 06/10/20 15 88453-APSO SKIN LESIONS, 2 TO 4 04/29/20 13 43084-OJYN SKIN LESIONS, 2 TO 4 07/14/20 13 76926-JNGS SKIN LESIONS, 2 TO 4 05/24/20 15 39108-QVRB SKIN LESIONS, 2 TO 4 01/27/20 14 39282- Removal of Foreign Body, Subcut 1 50,G5420-AYM TENDON SHEATH/LIGAMENT 0 07/01/201570414,S0529-RBW TENDON SHEATH/LIGAMENT 0 07/17/201384079,D2201-XMG TENDON SHEATH/LIGAMENT 1 50,F2454-NRU TENDON SHEATH/LIGAMENT 1 Next Appt Details Provider Name:Aria Dodd , 04/19/2025 02:15:00 PM, [address] [place], [address], Insurance Providers Payer Name Payer Address Payer Phone Subscriber Number Group Number Insured Name Patient Relationship to Insured Coverage Start Date Coverage End Date [employer] [address] [place] [address] [id number] Evelyne Claudio Self - patient is the [...] Reason Date(Month/Year) pneumonia sm blood clot 07/09- [facility] - Infection removal [place] th-shaved bone 12/2021 [facility] 03/2022 [facility] - right knee replacement 08/2022 [facility] 11/2022 [facility] - Cervical spine surgery 02/2023
--- OUTSIDE RECORDS SUMMARY | 2025-02-22 16:39 | XMS_ITS | Encounter Summary ---
Author Organization [facility] Address [address] [place] [address] Care Team Providers Care Erp Implementation Consultant Name Role Phone Lilo Davis Primary Care Provider [phone] Reason for Referral * Neurology (Routine) - Closed Specialty Diagnoses / Procedures Referred By Tiffani smart Referred To Contact Neurology Diagnoses Left elbow pain Procedures EMG one limb Laurel Haynes PA [address] [address] Phone: tel: fax: [address] [address] Phone: tel: fax: Referral ID Status Reason Start Date Expiration Date Visits Re quested Visits Authorized [id number] Closed 02/01/2025 02/01/2026 1 1 Reason for Visit * Neurology (Routine) - Closed Specialty Diagnoses / Procedures Referred By Tiffani smart Referred To Contact Neurology Diagnoses Left elbow pain Procedures EMG one limb Laurel Haynes PA 174 [facility] [address] [place] [address] Phone: tel: fax: [facility] Neuro [address] [address] Phone: tel: fax: Referral ID Status Reason Start Date Expiration Date Visits Re quested Visits Authorized [id number] Closed 02/01/2025 02/01/2026 1 1 Encounter Details Date Type Department Care Team (Latest Contact Info) Description 02/16/2025 3:42 PM EDT - 02/16/2025 11:59 PM EDT Hospital Encounter [facility] Neurodiagnostic [address] [place] [address] Left elbow pain Discharge Disposition: Home or Self Care Social History Tobacco Use Types Packs/Day Years [...] on file documented as of this encounter Medications at Time of Discharge acetaminophen (TYLENOL) 325 mg tablet Take 2 Tablets by mouth. albuterol HFA (PROAIR HFA ; PROVENTIL HFA ; VENTOLIN HFA) 90 mcg/actuation inhaler 03/03/2023 amLODIPine (NORVASC) 2.5 mg tablet baclofen (LIORESAL) 10 mg tablet 06/13/2021 blood sugar diagnostic (FreeStyle Lite Strips) test strip USE 1 STRIP TO CHECK GLUCOSE TWICE DAILY 05/30/2021 blood-glucose meter kit See administration instructions. 09/16/2017 buPROPion XL (WELLBUTRIN XL) 300 mg 24 hr tablet Take 1 Tab by mouth every morning. 12/27/2016 chlorhexidine (PERIDEX) 0.12 % solution 01/28/2023 cholecalciferol (VITAMIN D-3) 25 mcg (1,000 unit) tablet Take 1 Tablet by mouth. clotrimazole (MYCELEX) 10 mg shoaib Take 10 Lozenges by mouth 5 times daily. docusate sodium (COLACE) 100 mg capsule TAKE 1 CAPSULE BY MOUTH TWICE DAILY 02/04/2022 freestyle 28 gauge lancets 1 each 2 times daily. 05/06/2017 furosemide (LASIX) 20 mg tablet Take 40 mg by mouth daily. hydroxychloroqu ine (PLAQUENIL) 200 mg tablet 06/13/2021 hydrOXYzine HCL (ATARAX) 25 mg tablet Take 1 tablet (25 mg total) by mouth 3 (three) times a day if needed. 02/11/2024 ibuprofen (ADVIL,MOTRIN) 600 mg tablet Take 1 tablet (600 mg total) by mouth every 8 hours as needed. 06/25/2024 levothyroxine (SYNTHROID, LEVOTHROID) 88 mcg tablet Take 88 mcg by mouth daily. magnesium hydroxide (MAGNESIA ORAL) magnesium oxide (MAG-OX) 400 mg (241.3 elemental magnesium) tablet TAKE 1 TABLET BY MOUTH TWICE DAILY AFTER MEALS 12/13/2022 multivitamin tablet Take 1 tablet by mouth 1 (one) time each day. nystatin (MYCOSTATIN) cream 07/08/2023 omeprazole (PriLOSEC) [address] capsule 06/13/2021 oxyBUTYnin XL (DITROPAN-XL) 10 mg 24 hr tablet Take 10 mg by mouth 2 times daily. oxyCODONE (OXY-IR) 5 mg immediate release capsule Take 1-2 capsules (5-10 mg total) by mouth every 4 (four) hours if needed for severe pain. Max Daily Amount: 60 mg 40 capsule 09/03/2024 oxyCODONE (OxyCONTIN) 15 mg 12 hr abuse-deterrent tablet 03/13/2023 oxyCODONE (ROXICODONE) 10 mg immediate release tablet 1 PO Q 4H PRN moderate pain, max of 5 tablets per day 08/05/2024 pregabalin (LYRICA) 75 mg capsule Take 1 Capsule by mouth 2 times daily for 30 days. 07/06/2022 simvastatin (ZOCOR) 20 mg tablet Take 20 mg by mouth at bedtime. sulfaSALAzine (AZULFIDINE) 500 mg tablet 10/28/2024 traZODone (DESYREL) 50 mg tablet if needed. 12/23/2023 triamcinolone acetonide (KENALOG-40) 40 mg/mL injection 12/28/2022 venlafaxine XR (EFFEXOR-XR) 150 mg 24 hr capsule TAKE ONE CAPSULE BY MOUTH ONCE DAILY 04/01/2017 walker (Ultra-Light Rollator) misc 1 Product 1 (one) time each day if needed (as needed to ambulate). 1 each 09/03/2024 documented as of this encounter Discharge Disposition Disposition Code Departure Means Destination Home or Self Care documented in this encounter Plan of Treatment Upcoming Encounters Date Type Department Care Team (Late st Contact Info) Description 02/25/2025 11:00 AM EDT Office Visit Orthopedic Surgery - [place] [address] [facility] [address] [place] [address] Laurel Haynes PA [address] [facility] [address] [place] [address] documented as of this encounter Goals Goal [...] documented as of this encounter Care Teams Erp Implementation Consultant Relationship Specialty Start Date End Date Llio Davis PA [address] [place] [address], [address] [place] [address] PCP - General 02/01/25 documented as of this encounter
--- OUTSIDE RECORDS SUMMARY | 2025-02-22 16:39 | XMS_ITS | Clinical Summary ---
Author Organization [facility] Address [address] [place] [address] Care Team Providers Care Tester Armature Or Fields Name Role Phone Cayla Peñaloza NP Primary Care Provider [phone] Allergies Active Allergy Reactions Criticality Noted Date [...] metroNIDAZOLE (FLAGYL) 500 MG tabletIndicatio ns:Abscess of oracle apex developer space of mouth Take 1 tablet (500 mg total) by mouth 2 (two) times a day. Take with meals or food to reduce stomach upset. 44 tablet 2 Active cephalexin (KEFLEX) 500 MG capsuleIndicati ons:Abscess of oracle apex developer space of mouth Take 2 capsules (1,000 mg total) by mouth 2 (two) times a day. 88 capsule 2 Active baclofen (LIORESAL) 5 MG tabletIndicatio ns:Abscess of oracle apex developer space of mouth Take 3 tablets (15 [...] Problem Noted Date Diagnosed Date Abscess of oracle apex developer space of mouth 01/16/2022 Overview (01/16/2022): Added automatically from request for surgery [id number] Facial abscess 01/16/2022 Family History Medical History [...] patient's age to complete this topic Insurance [facility] MEDICARE Advance Directives * Full Code (Latest Code Status on File) Date Activated Date Inactivated Comments 01/16/2022 11:40 PM Care Teams Tester Armature Or Fields Relationship Specialty Start Date End Date Cayla Peñaloza NP [address] [place] [address] PCP - General Family Medicine 01/16/22
--- OUTSIDE RECORDS SUMMARY | 2025-02-22 16:40 | XMS_ITS ---
Author Organization [facility] Address [address] [place] [address] Care Team Providers Care Ocean Import Representative Name Role Phone Alvaro Candice Primary Care Provider Aria Day Unavailable [phone] Jun Limon Unavailable [phone] REASON FOR VISIT [employer]. Encounters Encounter Location Date Provider Diagnosis [address] [address] 04/22/2024 Jun Limon Plan Of Treatment Next Appt Details Provider Name:Aria Arnold Yousif , 04/19/2025 02:15:00 PM, [address] [place], [address], Progress Notes * Evelyne CLAUDIO MDOB: (63 yo F)Acc No.[id number]:04/22/2024 Patient:?Felicity Claudio :1960???Age:63 Y???Sex:Female Address: [place] [address] * true * Date:? Generated for Printi ng/Fayamiletg/eTransmitting on:?02/22/2025 04:39 PM EDT
== END 2025-02-22 14:28 | disposition home or self-care (01) ==
LOC: HO.PMC 13:55
PROVIDERS: Visit Provider Anesthesiology
DX: G89.4 Chronic pain syndrome (principal); M54.2 Cervicalgia; M96.1 Postlaminectomy syndrome, not elsewhere classified; M47.812 Spondylosis without myelopathy or radiculopathy, cervical region
CPT/HCPCS: 99214

== ENCOUNTER → 2025-02-22 13:54 | Outpatient (BNVA) | payer MEDICARE, SELFPAY | PROVIDERS: Visit Provider Anesthesiology | DX: M47.812 Spondylosis without myelopathy or radiculopathy, cervical region (principal); M96.1 Postlaminectomy syndrome, not elsewhere classified; G89.4 Chronic pain syndrome | CPT/HCPCS: 99212 ==

== ENCOUNTER → 2025-02-26 15:48 | Outpatient (BNVA) | payer MEDICARE, SELFPAY | DX: Z13.89 Encounter for screening for other disorder (principal) ==

== ENCOUNTER 2025-03-18 09:51 | Outpatient (REF) | payer MEDICARE, SELFPAY ==
--- OUTSIDE RECORDS SUMMARY | 2025-03-18 10:12 | XMS_ITS | Clinical Summary ---
Author Organization [facility] Address [address] [place] [address] Care Team Providers Care Product Safety Head Name Role Phone Cayla Peñaloza NP Primary Care Provider [phone] Allergies Active Allergy Reactions Criticality Noted Date [...] metroNIDAZOLE (FLAGYL) 500 MG tabletIndicatio ns:Abscess of furnace utility operator space of mouth Take 1 tablet (500 mg total) by mouth 2 (two) times a day. Take with meals or food to reduce stomach upset. 44 tablet 2 Active cephalexin (KEFLEX) 500 MG capsuleIndicati ons:Abscess of furnace utility operator space of mouth Take 2 capsules (1,000 mg total) by mouth 2 (two) times a day. 88 capsule 2 Active baclofen (LIORESAL) 5 MG tabletIndicatio ns:Abscess of furnace utility operator space of mouth Take 3 tablets (15 [...] Problem Noted Date Diagnosed Date Abscess of furnace utility operator space of mouth 01/16/2022 Overview (01/16/2022): Added automatically from request for surgery [id number] Facial abscess 01/16/2022 Family History Medical History [...] 60-74 years 1-dose series) 2022 Influenza Vaccine 05/28/2025 07/26/2020, 07/21/2019, 07/29/2018 Chronic Controlled Substance User PDMP Review Discontinued 01/16/2022 Hepatitis B Vaccines Aged Out No long er eligible based on patient's age to complete this topic Insurance [facility] MEDICARE Advance Directives * Full Code (Latest Code Status on File) Date Activated Date Inactivated Comments 01/16/2022 11:40 PM Care Teams Product Safety Head Relationship Specialty Start Date End Date Cayla Peñaloza NP [address] [place] [address] PCP - General Family Medicine 01/16/22
--- OUTSIDE RECORDS SUMMARY | 2025-03-18 10:13 | XMS_ITS | Patient Health Record ---
Author Organization [facility] Address [address] [facility] [place] [address] Care Team Providers Care Engraver Apprentice Decorative Name Role Phone Candice John Primary Care Provider Unavailabl e Aria Dodd Unavailable [phone] Jun Limon Unavailable [phone] Allergies Allergen (clinical drug ingredient) Drug/Non Drug [...] Problem Acquired hammer toe of right foot (7529592259363015 ) Other hammer toe(s) (acquired), right foot (M20.41) Active confirmed Problem Acquired hammer toe of left foot (0535967024299858 ) Other hammer toe(s) (acquired), left foot (M20.42) Active confirmed Problem Polyneuropathy due to type 2 diabetes mellitus (710518837) Type 2 diabetes mellitus with diabetic polyneuropathy (E11.42) Active confirmed Problem Chronic ulcer of foot (999214532) Non-pressure chronic ulcer of other part of left foot with fat layer exposed (L97.522) Active confirmed Problem 53319607 Unsteady gait (R26.81) Active confirmed Problem 28301529 Smoker (F17.200) Active confirmed Problem 750500972 Charcot's joint of right foot (M14.671) Active confirmed Problem Localized, primary osteoarthritis of the ankle and/or foot (590566196) Arthritis of joint of lesser toe, left (M19.072) Active confirmed Problem Localized, primary osteoarthritis of the ankle and/or foot (823673007) Arthritis of joint of lesser toe, right (M19.071) Active confirmed Encounters Encounter Location Date Provider Diagnosis [facility] [address] [address] 04/22/2024 Jun Limon [facility] [address] [address] 06/08/2024 Aria Dodd Plan Of Treatment Pending Test Test Name Order Date X ray : Foot, right 3V 09/22/2013 46584-NUJAXXO NAIL, 6 OR MORE 01/26/2014 31620-MXHBVDP NAIL, 6 OR MORE 05/24/2015 37326-FDTRALD NAIL, 6 OR MORE 04/29/2013 47603-CIWCIXB NAIL, 6 OR MORE 07/14/2013 64600-OXYLYMB NAIL, 6 OR MORE 06/10/2015 75486-ETGFMQK NAIL, 6 OR MORE 08/02/2015 05701-UAUOHZN NAIL, 6 OR MORE 10/11/2020 47088-RDZGHYM NAIL, 6 OR MORE 04/11/2021 67075-PEDKQLI NAIL, 6 OR MORE 07/18/2023 65859-PASNSCA NAIL, 6 OR MORE 11/07/2023 06734-JMYPUIW NAIL, 6 OR MORE 02/20/2024 03672-Gtnp Destruction, 1-14 02/20/2024 10551-Tvfg Destruction, 1-14 07/18/2023 92727-Nwov Destruction, 1-14 11/07/2023 68853-Ikcd Destruction, 1-14 10/11/2020 50550-UTTA SKIN LESIONS, OVER 4 10/11/20 20 20769-PDWA SKIN LESIONS, OVER 4 02/20/20 24 21770-VNLQ SKIN LESIONS, OVER 4 11/07/19 24 91466-AVFY SKIN LESIONS, OVER 4 04/11/20 21 59379-RLLI SKIN LESIONS, OVER 4 07/18/20 23 92660-OMIC SKIN LESIONS, 2 TO 4 08/02/20 15 73638-KEOC SKIN LESIONS, 2 TO 4 06/10/20 15 32811-SNNB SKIN LESIONS, 2 TO 4 04/29/20 13 33978-FUII SKIN LESIONS, 2 TO 4 07/14/20 13 61187-ACTH SKIN LESIONS, 2 TO 4 05/24/20 15 42447-QRJV SKIN LESIONS, 2 TO 4 01/27/20 14 83983- Removal of Foreign Body, Subcut 1 50,Q0246-YHU TENDON SHEATH/LIGAMENT 0 07/01/201573497,V9699-MUK TENDON SHEATH/LIGAMENT 0 07/17/201321043,T1142-VYA TENDON SHEATH/LIGAMENT 1 50,Z9627-FGG TENDON SHEATH/LIGAMENT 1 Next Appt Details Provider Name:Aria Dodd , 04/19/2025 02:15:00 PM, [address] [place], [address], Insurance Providers Payer Name Payer Address Payer Phone Subscriber Number Group Number Insured Name Patient Relationship to Insured Coverage Start Date Coverage End Date [employer] [place] Medicare Advantage [address] [place] [address] [id number] Evelyne Claudio Self - patient is the [...] Reason Date(Month/Year) pneumonia sm blood clot 07/09- [facility] - Infection removal [place] th-shaved bone 12/2021 [facility]22 [facility] - [facility] [place] 08[place] [facility] [place] [facility] [place]20[place] [facility] - Cervical spine surgery 02/2023
--- OUTSIDE RECORDS SUMMARY | 2025-03-18 10:13 | XMS_ITS | Encounter Summary ---
Author Organization [facility] Address [address] [place] [address] Care Team Providers Care Blood Bank Booking Clerk Name Role Phone Domonique Gibson MD Unavailable [phone] Najma Fay PA-C Unavailable [phone] Jed Calix PA-C Unavailable [phone] Cayla Peñaloza NP Primary Care Provider Unavailabl e [facility], Pcp Primary Care Provider UnavailJim Hines Primary Care Provider Unavaila Laura Grey MD Primary Care Provider Unavailabl e Encounter Details Date Type Department Care Team Description 03/23/2022 Telephone [facility] Neurosurgery [place] [address] [address] Domonique Gibson MD 175 [place] [address] Social History Tobacco Use Types Packs/Day Years Used Date Smoking Tobacco: Former Cigarettes 2 30 Smokeless Tobacco: Former Alcohol Use Standard Drinks/Week Comments Not Asked 0 (1 standard drink = 0.6 oz pur e alcohol) Sex Assigned at Date Recorded Not on file documented as of this encounter Miscellaneous Notes * Telephone Encounter - Najma Fay PA-C - 03/28/2022 9:11 AM EDT All questions answered, surgery and posto restrictions/recovery expectations. Pt will hop picker Hibiclens body wash and insturction sheet. Pt stopping NSAIDS. * Telephone Encounter - Jed Calix PA-C - 03/27/2022 2:12 PM EDT Called and left message. * Telephone Encounter - Lakesha Perkins - 03/23/2022 3:08 PM EDT Patient had some questions about surgery, she is calling dentist to verify cleared from previous infection, states she has been off antibiotics for several weeks. Patient does report trouble with herdominant arm now, feels very week. Please call * Telephone Encounter - Lakesha Perkins - 03/23/2022 1:52 PM EDT Patient left message, she has questions about potential procedure. documented in this encounter Plan of Treatment Not on file documented as of this encounter Visit Diagnoses Not on filedocumented in this encounter Care Teams Blood Bank Booking Clerk Relationship Specialty Start Date End Date Cayla Peñaloza NP [address] [address] PCP - General Internal Medicine 01/31/22 05/25/24 [facility], Pcp [address] [address] PCP - General Internal Medicine 05/26/24 07/28/24 Jim Tan [address] [address] PCP - General Internal Medicine 07/29/24 08/05/24 Laura Car MD [address] [address] PCP - General Family Practice 08/25/24 Domonique Gibson MD [address] [address] Surgeon Neurosurgery 01/02/22 Najma Fay PA-C [address] [address] Specialist Neurosurgery 01/02/22 Jed Calix PA-C [address] [address] Specialist Neurosurgery 01/02/22 documented as of this encounter
--- OUTSIDE RECORDS SUMMARY | 2025-03-18 10:13 | XMS_ITS | Clinical Summary ---
Author Organization [facility] Address [address] [place] [address] Care Team Providers Care Trace Evidence Technician Name Role Phone Cayla Peñaloza NP Primary Care Provider [phone] Social History Tobacco Use Types Packs/Day Years [...] age to complete this topic Care Teams Trace Evidence Technician Relationship Specialty Start Date End Date Cayla Peñaloza, V[employer] [facility] [phone] PCP - General Family Medicine 03/20/19
--- OUTSIDE RECORDS SUMMARY | 2025-03-18 10:13 | XMS_ITS ---
Author Organization [facility] Address [address] [place] [address] Care Team Providers Care Polo Coach Name Role Phone John Candice Primary Care Provider Diaz dayna Cyril Doddmidayna Handley [phone] REASON FOR VISIT cx 06/08 Encounters Encounter Location Date Provider Diagnosis [address] [address] 06/08/2024 Aria Yousif Plan Of Treatment Next Appt Details Provider Name:Aria Arnold Yousif , 04/19/2025 02:15:00 PM, [address] [place] [address], [address], Progress Notes * Evelyne CLAUDIO MDOB: (63 yo F)Acc No.[id number]:06/08/2024 Patient:?Felicity Claudio :1960???Age:63 Y???Sex:Female Address: [place] [address] * true * Date:? Generated for Printi ng/Fayamiletg/eTransmitting on:?03/18/2025 10:12 AM EDT
--- OUTSIDE RECORDS SUMMARY | 2025-03-18 10:13 | XMS_ITS | Clinical Summary ---
Author Organization [address] [facility] Address [address] [place] [address] Phone Care Team Providers Care Stave Log Cut Off Saw Operator Name Role Phone Lilo Davis Primary Care Provider Allergies Active Allergy Reactions Criticality Noted Date [...] getting [place] cardi[place]. [place] [facility] She has history of lymphedema, her right [...] answered. 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 ([facility] V24, [facility] V28) 04/20/2020 Overview (08/31/2024): Last Assessment & Plan: Managed by rheumatology, taking hydroxychloroquine and sulfasalazine Pyogenic inflammation of bone ([facility] V24, [facility] V28) 12/02/2019 Lichen sclerosus 07/29/2018 Slow transit [...] 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 ([facility] [place]24, [facility] V28) 10/17/2017 Overview (08/31/2024): Last Assessment & Plan: Labs as ordered for treatment evaluation, she notes very sedentary lifestyle Status post total left knee replacement 10/17/20 17 Depression, major, recurrent , in partial remission ([facility] V24) 06/02/2015 Major depressive disorder, r ecurrent episode, in partial remission ([facility] [place] V24) 06/18/2013 Opioid type dependence ([facility] V24, [facility] V28 ) 05/21/2013 Overview (08/31/2024): IMO update Alcohol abuse 04/03/2012 Back pain 04/03/2012 DJD (degenerative joint disease) of knee 012 Hypercholesteremia 04/03/2012 Hypertension 04/03/2012 Obesity 04/03/2012 Tobacco dependence 04/03/2012 Encounters Date Type Department Care Team Description 03/05/2025 11:15 AM EDT Office Visit Orthopedic Surgery - [place] 175 [facility] [address] [place] [address] Laurel Haynes PA Left elbow pain (Primary Dx); Cubital tunnel syndrome on left 02/16/2025 3:42 PM EDT - 02/16/2025 11:59 PM EDT Hospital Encounter [facility] Neurodiagnostic [address] [place] [address] Left elbow pain Discharge Disposition: Home or Self Care 02/01/2025 1:45 PM EDT Office Visit Orthopedic Surgery [facility] [address] [facility] [address] [place] [address] Laurel Haynes PA Left elbow pain (Primary Dx) 12/24/2024 Telephone Neurosurgery [facility] [address] [facility] [address] [place] [address] Lakesha Perkins MA from Last [...] 2, co ntrolled, with complications (CMS/HCC V24, CMS/HCC V28) DX:Diabetes mellitus type 2, controlled, with complications (HCC) Esophageal reflux DX:Esophageal reflux Anxiety state DX:Anxiety [...] Date Smoking Tobacco: Every Day Cigarettes 1.5 44.4 Started: 1980 Passive Smoke Exposure: Past Smokeless [...] Care Team (Late st Contact Info) Description 04/16/2025 11:45 AM EDT Office Visit Orthopedic Surgery [facility] 175 [facility] [address] [place] [address] Yu Hernández MD 175 [facility] [address] [place] [address] Health Maintenance Due Date Last Done Comments [...] Dodson RN Medical Devices Implanted Type Area Measurement Department Chief Clerk Device Identifier Shelf Expiration Date Model / Serial / Lot Joints Knee Joints Knee Bilateral : Knee Procedures Procedure Name Priority Date/Time Associated Diagnosis Comments EMG 1 LIMB Routine 02/16/2025 4:22 PM EDT Left elbow pain XR ELBOW 3+ VIEWS LEFT Routine 02/01/2025 2:19 PM EDT Left elbow pain ANNUAL BMP [...] [facility] ORDERABLES Final Re sult * XR Elbow 3+ Views Left (02/01/2025 2:19 PM EDT) Anatomical Region Laterality Modality Upper Extremities, Elbow Left Compute d Radiography Narrative 03/05/2025 11:24 AM EDT Date of Visit: 03/05/2025 Reason for visit: Left elbow pain Views: AP, lateral, oblique left elbow Comparison: None Findings: No fracture, dislocation or lytic lesions. ??There is subchondral bone cyst at radial head. ??Normal radiocapitellar bony relationships. ??No calcifications or bone spurs seen. Impression: Mild arthritic changes of the elbow no acute findings. La[facility] XR PROCEDURES Final Resul t * Annual BMP Blood Test (12/04/2023) Annual BMP Blood Test Abstarcted Historical Provider HEALTH MAINTENANCE Final Result * Hemoglobin A1c (12/04/2023) Hemoglobin A1C 0.0 % Comment:No Interpretation, A [...] [employer] [place] MED[employer] ADVANTAGE Care Teams Stave Log Cut Off Saw Operator Relationship Specialty Start Date End Date Lilo Davis PA [address] [facility], [address] [place] [address] PCP - General 02/01/25
--- OUTSIDE RECORDS SUMMARY | 2025-03-18 10:13 | XMS_ITS | Encounter Summary ---
Author Organization [facility] Address [address] [place] [address] Care Team Providers Care Supervisor Money Room Name Role Phone Domonique Gibson MD Unavailable [phone] Najma Fay PA-C Unavailable Jed CalixC Unavailable [phone] Cayla Peñaloza NP Primary Care Provider Unavailabl e [facility], Pcp Primary Care Provider Unavailabl e Jim Tan Primary Care Provider Unavaila Laura Grey MD Primary Care Provider Unavailabl e Reason for Visit * Reason Onset Date Comments Provider Call Back 08/29/2023 Encounter Details Date Type Department Care Team Description 08/29/2023 Telephone [facility] Neurosurgery [place] [address] [phone] Domonique Gibson MD [address] [address] Provider Call Back Social History Tobacco Use Types Packs/Day Years Used Date Smoking Tobacco: Every Day Cigarettes 2 30 Smokeless Tobacco: Former Alcohol Use Standard Drinks/Week Comments Not Asked 0 (1 standard drink = 0.6 oz pur e alcohol) Sex Assigned at Date Recorded Not on file documented as of this encounter Miscellaneous Notes * Telephone Encounter - Domonique Gibson MD - 08/29/2023 10:08 AM EDT I reviewed the new cervical spine x-rays with flexion-extension views with Ms. Claudio and there is a change in the retrolisthesis at C3-4 of approximately 1.5 mm between flexion and neutral/extension. This was noted on her previous x- rays in April. The disc space is completely collapsed and may fuse itself over time if we can control her symptoms. Her cervical spine MRI from February shows moderate left C3-4 foraminal narrowing from facet arthropathy. There is no significant central stenosis. I recommended a C3-4 facet injection and then she can continue with physical therapy but avoid lifting any weight overhead. She is agreeable. documented in this encounter Plan of Treatment Not on file documented as of this encounter Visit Diagnoses Not on filedocumented in this encounter Care Teams Supervisor Money Room Relationship Specialty Start Date End Date Cayla Peñaloza NP [address] [address] PCP - General Internal Medicine 01/31/22 05/25/24 [facility], Pcp [address] [address] PCP - General Internal Medicine 05/26/24 07/28/24 Jim Tan [address] [address] PCP - General Internal Medicine 07/29/24 08/05/24 Laura Car MD [address] [address] PCP - General Family Practice 08/25/24 Domonique Gibson MD [address] [address] Surgeon Neurosurgery 01/02/22 Najma Fay PA-C [address] [address] Specialist Neurosurgery 01/02/22 Jed Calix PA-C [address] [address] Specialist Neurosurgery 01/02/22 documented as of this encounter
--- OUTSIDE RECORDS SUMMARY | 2025-03-18 10:13 | XMS_ITS ---
Author Organization [facility] Address [address] [place] [address] Care Team Providers Care Machine Clipper Name Role Phone Anabela CANTRELL, Cayla Primary Care Provider Getachew De Dios Jr REASON FOR VISIT screening,hx polyps Encounters Encounter Location Date Provider Diagnosis [facility] [place] [facility] [address] [place], [place] [id number] 01/10/2024 Getachew Toscano Jr Encounter for screening colonoscopy Z12.11 and Personal history of colonic polyps Z86.010 Assessments Encounter Date Diagnosis (ICD Code) Assessment Notes Treatment Notes Treatment Clinical Notes Section Notes 01/10/2024 Encounter for screening colonoscopy (ICD-10 - Z12.11) 01/10/2024 Personal history of colonic polyps (ICD-10 - Z86.010) Plan Of Treatment No Information Progress Notes * BEAR KRAUSE MDOB: (64 yo F)Acc No.[id number]:01/10/2024 COLON WITH MAC Patient:?AMANDA KRAUSE Provider:?Getachew Toscano MD :1960???Age:63 Y???Sex:Female D ate:01/10/2024 Address:[address] [place], [place] [id number] Pcp:Cayla Peñaloza NP Subjective: * Chief Complaints: * ???1. Screening,hx polyps. * Medical History:? Objective: * Vitals:? Assessment: * Assessment: 1.?Encounter for screening c olonoscopy - Z12.11 (Primary)???2.?Personal history of colonic polyps - Z86.010??? Plan: * Treatment: * Procedure Codes:?23687 DIAGN OSTIC COLONOSCOPY * Preventive Medicine:? ??JACQUELINE [...] Toscano MD Date:?0 01/10/2024 Generated for Rehan sullivan/Wali/eTransmitting on:?03/18/2025 10:13 AM EDT
--- OUTSIDE RECORDS SUMMARY | 2025-03-18 10:13 | XMS_ITS | Encounter Summary ---
Author Organization [facility] Address [address] [place] [address] Care Team Providers Care Carrot Buncher Name Role Phone Domonique Gibson MD Unavailable [phone] Najma Fay PA-C Unavailable [phone] Jed Calix PA-C Unavailable Laura Car MD Primary Care Provider Unavailabl e Encounter Details Date Type Department Care Team Description 08/20/2024 SCAN [facility] Neurosurgery [place] [address] [phone] Najma Fay PA-C [address] [phone] Social History Tobacco Use Types Packs/Day Years [...] on filedocumented in this encounter Care Teams Carrot Buncher Relationship Specialty Start Date End Date Laura Car MD [address] [address] PCP - General Family Practice 08/25/24 Domonique Gibson MD [address] [phone] Surgeon Neurosurgery 01/02/22 Najma Fay PA-C 175 [facility] [address] [place] [address] Specialist Neurosurgery 01/02/22 Jed Calix PA-C [address] [address] Specialist Neurosurgery 01/02/22 documented as of this encounter
--- OUTSIDE RECORDS SUMMARY | 2025-03-18 10:13 | XMS_ITS | Encounter Summary ---
Author Organization [facility] Address [address] [place] [address] Care Team Providers Care Rn Integrity Name Role Phone Domonique Gibson MD Unavailable [phone] Najma Fay PA-C Unavailable [phone] Jed Calix PA-C Unavailable Cayla Peñaloza NP Primary Care Provider Unavailabl e [facility], Pcp Primary Care Provider UnavailJim Hines Primary Care Provider Unavaila Laura Grey MD Primary Care Provider Unavailabl e Encounter Details Date Type Department Care Team Description 07/25/2023 SCAN [facility] Medical [facility] Neurosurgery [place] [address] [address] Domonique Gibson MD 175 [place] [address] Social History Tobacco Use Types Packs/Day Years Used Date Smoking Tobacco: Every Day Cigarettes 2 30 Smokeless Tobacco: Former Alcohol Use Standard Drinks/Week Comments Not Asked 0 (1 standard drink = 0.6 oz pur e alcohol) Sex Assigned at Date Recorded Not on file COVID-19 Exposure Response Date Recorded In the last 10 days, have yo u been in contact with someone who was confirmed or suspected to have Coronavirus/COVID-19? No / Unsure 06/27/2023 12:25 PM EDT documented as of this encounter Plan of Treatment Not on file documented as of this encounter Visit Diagnoses Not on filedocumented in this encounter Care Teams Rn Integrity Relationship Specialty Start Date End Date Cayla Peñaloza NP [address] [address] PCP - General Internal Medicine 01/31/22 05/25/24 [facility], Pcp [address] [address] PCP - General Internal Medicine 05/26/24 07/28/24 Jim Tan [address] [address] PCP - General Internal Medicine 07/29/24 08/05/24 Laura Car MD [address] [address] PCP - General Family Practice 08/25/24 Domonique Gibson MD [address] [address] Surgeon Neurosurgery 01/02/22 Najma Fay PA-C [address] [address] Specialist Neurosurgery 01/02/22 Jed Calix PA-C [address] [address] Specialist Neurosurgery 01/02/22 documented as of this encounter
--- OUTSIDE RECORDS SUMMARY | 2025-03-18 10:13 | XMS_ITS | Encounter Summary ---
Author Organization [facility] Address [address] [place] [address] Care Team Providers Care Environmental Change Analyst Name Role Phone Domonique Gibson MD Unavailable [phone] Najma Fay PA-C Unavailable Jed CalixC Unavailable [phone] Cayla Peñaloza NP Primary Care Provider Unavailabl e [facility], Pcp Primary Care Provider Unavailabl e Jim Tan Primary Care Provider Unavaila Laura Grey MD Primary Care Provider Unavailabl e Reason for Visit * Reason Onset Date Comments allergies 04/25/2022 Encounter Details Date Type Department Care Team Description 04/25/2022 Telephone [facility] Medical [facility] Neurosurgery [place] [address] [address] Domonique Gibson MD [address] [place] [address] allergies Social History Tobacco Use Types Packs/Day Years [...] suspected to have Coronavirus/COVID-19? No / Unsure 04/26/2022 11:47 AM EDT documented as of this encounter Miscellaneous Notes * Telephone Encounter - Crystal Saba - 04/25/2022 11:14 AM EDT Patient returning your call from yesterday about the allergies. She stated she's allergic to Augmentin that gives her mild rash in her face. documented in this encounter Plan of Treatment Not on file documented as of this encounter Visit Diagnoses Not on filedocumented in this encounter Care Teams Environmental Change Analyst Relationship Specialty Start Date End Date Cayla Peñaloza NP [address] [address] PCP - General Internal Medicine 01/31/22 05/25/24 [facility], Pcp [address] [address] PCP - General Internal Medicine 05/26/24 07/28/24 Jim Tan [address] [address] PCP - General Internal Medicine 07/29/24 08/05/24 Laura Car MD [address] [address] PCP - General Family Practice 08/25/24 Domonique Gibson MD [address] [address] Surgeon Neurosurgery 01/02/22 Najma Fay PA-C [address] [address] Specialist Neurosurgery 01/02/22 Jed Calix PA-C [address] [address] Specialist Neurosurgery 01/02/22 documented as of this encounter
--- OUTSIDE RECORDS SUMMARY | 2025-03-18 10:13 | XMS_ITS | Encounter Summary ---
Author Organization [facility] Address [address] [place] [address] Care Team Providers Care Mechanical Systems Design Engineer Name Role Phone Jim Tan Primary Care Provider Domonique Chavira MD Unavailable [phone] Najma Fay PA-C Unavailable [phone] Jed Calix PA-C Unavailable [phone] Cayla Peñaloza NP Primary Care Provider Unavailashkan e [facility], Pcp Primary Care Provider Unavailashkan e Jim Tan Primary Care Provider Laura Antunez MD Primary Care Provider Unavailabl e Encounter Details Date Type Department Care Team Description 01/02/2022 Transfer Records [facility] Medical [facility] Neurosurgery [place] [address] [address] Najma Fay PA-C [address] [phone] Social History Tobacco Use Types Packs/Day Years Used Date Smoking Tobacco: Every Day Cigarettes 2 30 Smokeless Tobacco: Never Alcohol Use Standard Drinks/Week Comments Not Asked 0 (1 standard drink = 0.6 oz pur e alcohol) Sex Assigned at Date Recorded Not on file COVID-19 Exposure Response Date Recorded In the last month, have you been in contact with someone who was confirmed or suspected to have Coronavirus / COVID-19? No / Unsure 12/11/2021 11:09 AM EST documented as of this encounter Plan of Treatment Not on file documented as of this encounter Visit Diagnoses Not on filedocumented in this encounter Care Teams Mechanical Systems Design Engineer Relationship Specialty Start Date End Date Jim Tan PCP - General Internal Medicine 02/28/12 01/30/22 Cayla Peñaloza NP [address] [address] PCP - General Internal Medicine 01/31/22 05/25/24 [facility], Pcp [address] [address] PCP - General Internal Medicine 05/26/24 07/28/24 Jim Tan PCP - General Internal Medicine 07/29/24 08/05/24 Laura Car MD [address] [address] PCP - General Family Practice 08/25/24 Domonique Gibson MD [address] [address] Surgeon Neurosurgery 01/02/22 Najma Fay PA-C [address] [address] Specialist Neurosurgery 01/02/22 Jed Calix PA-C [address] [address] Specialist Neurosurgery 01/02/22 documented as of this encounter
--- OUTSIDE RECORDS SUMMARY | 2025-03-18 10:13 | XMS_ITS | Clinical Summary ---
Author Organization [facility] Address [address] [place] [address] Care Team Providers Care Stunt Double Name Role Phone Domonique Gibson MD Unavailable [phone] Najma Fay PA-C Unavailable Jed Calix PA-C Unavailable [phone] Laura Car MD Primary Care Provider Unavailabl e Allergies Active Allergy Reactions Severity Noted Date Comments Augmentin Rash/Dermatitis 04/03/2012 Medications Medication Sig Dispensed Refills Start Date End Date Status simvastatin (ZOCOR) 20 MG tablet Take 20 mg by mouth at bedtime. 0 Active oxybutynin (DITROPAN-XL) 10 MG 24 hr tablet Take 10 mg by mouth 2 times daily. 0 Active furosemide (LASIX) 20 MG tablet Take 40 mg by mouth daily. 0 Active cyclobenzaprine (FLEXERIL) 10 MG tablet 0 06/01/2015 Active levothyroxine (SYNTHROID, LEVOTHROID) 88 MCG tablet Take 88 mcg by mouth daily. 0 Active Clotrimazole 10 MG Lozenge Take 10 Lozenges by mouth 5 times daily. 0 Active buPROPion (WELLBUTRIN XL) 300 MG 24 hr tablet Take 1 Tab by mouth every morning. 30 Tab 2 12/27/2016 Active venlafaxine (EFFEXOR-XR) 75 MG 24 hr capsule TAKE ONE CAPSULE BY MOUTH ONCE DAILY . TAKE WITH VENLAFAXINE 150 MG FOR TOTAL DAILY DOSE OF 225 MG 30 Cap 0 04/01/2017 Active venlafaxine (EFFEXOR-XR) 150 MG 24 hr capsule TAKE ONE CAPSULE BY MOUTH ONCE DAILY 30 Cap 0 04/01/2017 Active baclofen (LIORESAL) 10 MG tablet 0 06/13/2021 Active Glucose Blood (FREESTYLE LITE) Strip USE 1 STRIP TO CHECK GLUCOSE TWICE DAILY 0 05/30/2021 Active hydroxychloroquine (PLAQUENIL) 200 MG tablet 0 06/13/2021 Active omeprazole (PRILOSEC) 20 MG capsule 0 06/13/2021 Active docusate sodium (COLACE) 100 MG capsule TAKE 1 CAPSULE BY MOUTH TWICE DAILY 0 02/04/2022 Active pregabalin (LYRICA) 75 MG capsuleIndications: Cervical stenosis of spinal canal Take 1 Capsule by mouth 2 times daily for 30 days. 60 Capsule 1 07/06/2022 Active Magnesium Hydroxide (MAGNESIA OR) Take by mouth. 0 Active triamcinolone acetonide (KENALOG-40) 40 MG/ML injection 1 mL by Other route once for 1 dose. 1 mL 0 12/28/2022 Active ibuprofen (ADVIL,MOTRIN) 600 MG tablet Take 1 Tablet by mouth 3 times daily. 0 Active ALBUTEROL SULFATE 108 (90 Base) MCG/ACT Aero Soln 0 03/03/2023 Active chlorhexidine (PERIDEX) 0.12 % solution RINSE WITH 15ML FOR 30 SECONDS AND SPIT, USE TWICE DAILY IN THE MORNING AND EVENING AFTER BRUSHING AND FLOSSING . 0 01/28/2023 Active Magnesium Oxide, Antacid, 400 MG Tab TAKE 1 TABLET BY MOUTH TWICE DAILY AFTER MEALS 0 12/13/2022 Active sulfaSALAzine (AZULFIDINE) 500 MG tablet TAKE 1 TABLET BY MOUTH TWICE DAILY FOR 1 WEEK, THEN 2 TABLETS IN THE MORNING AND 1 TABLET AT NIGHT FOR 1 WEEK, AND THEN 2 TABLETS TWICE DAILY. TAKE WITH (MEAL/SNACK). 0 01/23/2023 Active OxyCONTIN 15 MG Tablet Extended Release 12 hour Abuse-Deterrent TAKE 1 TABLET BY MOUTH EVERY 12 HOURS 0 03/13/2023 Active nystatin (MYCOSTATIN) cream 0 07/08/2023 Active acetaminophen (TYLENOL) 325 MG tablet Take 2 Tablets by mouth. 0 Active Cholecalciferol 25 MCG (1000 UT) Tab Take 1 Tablet by mouth. 0 Active trazodone (DESYREL) 50 MG tablet Take 1 Tablet by mouth. 0 12/23/2023 Active oxyCODONE HCl 10 MG TabIndications:Low back pain with sciatica, sciatica laterality unspecified, unspecified back pain laterality, unspecified chronicity 1 PO Q 4H PRN moderate pain, max of 5 tablets per day 25 Tablet 0 08/05/2024 Active amlodipine (NORVASC) 2.5 MG tablet Take 1 Tablet by mouth daily. 0 Active Active Problems Problem Noted Date Wound infection after surgery 08/12/2024 Last Assessment & Plan: Patient is 7 [...] getting referral to cardi[place]. [place] [facility] [place] She has history of [...] to call with any concerns or questions. Peripheral polyneuropathy 10/24/2023 Synovial cyst of lumbar spine 07/09/2023 Last Assessment & Plan: Patient is s/p [...] I will review her imaging with Dr. Gibson once completed. All questions answered. Low back pain with sciatica 05/16/2023 Last Assessment & Plan: Patient is 4 [...] that was placed earlier this morning. Dr. Gibson came in to check patient today as [...] probiotic while on antibiotics. All questions answered. Cervical cord compression with myelopath y 03/12/2023 Last Assessment & Plan: Ms. Claudio is [...] x-rays now to assess for any changes. Use of opiates for therapeutic purposes 11/22/2022 Overview: Last Assessment & Plan: We discussed my significant concern regarding very high daily MME and narcotic use. We also discussed concern for risk for falls given polypharmacy which she has reported three falls within the last month. Also with concerns for anticholinergic side effects including constipation and dry mouth. Best practices reviewed as well as risks, benefits and side effects of narcotics. I discussed opioid taper with patient that will be initiated at follow up visit in 4 weeks. She has seen Pain Management in the past and does have additional surgery scheduled next month. Urine toxicology as ordered today. Depression with anxiety 11/22/2022 Cervical stenosis of spinal canal 2021 Last Assessment & Plan: Ms. Claudio is [...] concerns. 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 Nonpharmacologic and pharmacologic options briefly discussed. Prescribed hydroxyzine 25 mg PRN Acquired hypothyroidism 10/17/2017 Depression, major, recurrent, in partial remission 06/02/2015 Major depressive disorder, r ecurrent episode, in partial or unspecified remission 06/18/2013 Opioid type dependence, unspecified 04/28 Overview: IMO update Hypertension 04/03/2012 DJD (degenerative joint disease) of knee 04/03/2012 Hypercholesteremia 04/03/2012 Obesity 04/03/2012 Alcohol abuse, unspecified 04/03/2012 Tobacco dependence 04/03/2012 Back pain 04/03/2012 Alcohol use 04/03/2012 Immunizations Name Administration Dates Next Due COVID-19 (Pfizer) 02/03/2021,01/13/2021 Flu (Generic) 07/25/2015,08/10/2014,08/14/2012 Influenza (> 6 Months) 08/19/2024,2023,08/02/2023,2021,08/30/2020,07/26/2020,07/21/2019,1 ,07/19/2017,10/12/2016, 013 Influenza (>6 Months) Split Preservative Free 07/23/2015 PREVNAR 20 (PATIENT REPORTED) 05/12/2015 Pneumovax Adult(PT Reported) 07/19/2017 TD (STATE SUPPLIED FOR ADULT S AND CHILDREN) 03/17/2016 Td, Adsorbed, Preservative F ree, Adult Use, Lf Unspecified 03/17/2016,01/24/2006 Tdap 01/12/2024 Social History Tobacco Use Types Packs/Day Years Used Date Smoking Tobacco: Every Day Cigarettes 2 30 Smokeless Tobacco: Former Tobacco Cessation:Ready to Q uit: Not Asked; Counseling Given: Not Answered Alcohol Use Standard Drinks/Week Comments Not Asked 0 (1 standard drink = 0.6 oz pur e alcohol) Sex Assigned at Date Recorded Not on file Last Filed Vital Signs Vital Sign Reading Time Taken Comments Blood Pressure 134/79 12/30/2023 3:38 PM EST Pulse 87 12/30/2023 3:38 PM EST Temperature 36.3 ??C (97.3 ??F) 07/24/2022 1:37 PM ED T Respiratory Rate 17 12/07/2021 1:14 PM EST Oxygen Saturation 97% 07/24/2022 1:37 PM EDT Inhaled Oxygen Concentration - - Weight 75.3 kg (166 lb) 08/25/2024 2:16 PM EDT Height 157.5 cm (5' 2 ) 08/25/2024 2:16 PM EDT Body Mass Index 30.36 08/25/2024 2:16 PM EDT Plan of Treatment Health Maintenance Due Date Last Done Comments DEPRESSION SCREEN 1974 DIABETES/HEART DISEASE: MAYNOR PALMA CHOLESTEROL (LDL) 1980 DIABETES: ANNUAL EYE EXAM 1980 DIABETES: ANNUAL FOOT EXAM 1980 DIABETES: ANNUAL URINE PROTE IN TEST (MICROALBUMIN) 1980 DIABETES: BLOOD SUGAR CONTRO L TEST (HGBA1C) 1980 HEPATITIS C SCREENING 1980 CERVICAL CANCER SCREENING 1983 BASELINE HEALTH EXAM 40-64 2002 MAMMOGRAM 2002 COLON CANCER SCREENING 2012 SHINGLES VACCINE (1 of 2) 2012 Lung Cancer Screening (Low D ose CT) 2017 Covid-19 Vaccine (3 2022-2 4 season) 2024 02/03/2021, 01/13/2021 BMI CHECK/ADVISE 10/28/2024 04/01/2024, 01/2024, 09/17/2023, Additional history exists PNEUMOCOCCAL VACCINE FOR HIG H RISK PATIENTS (#2) 2027 07/19/2017, 05/12/2015 DTAP/TDAP/TD (2 - Td or Tdap) 01/11/2034, 03/17/2016, 03/17/2016, Additional history exists INFLUENZA Completed 08/19/2024, 10/2023, 08/02/2023, Additional history exists Care Teams Stunt Double Relationship Specialty Start Date End Date Laura Car MD 175 [facility] [address] [place] [address] PCP - General Family Practice 08/25/24 Domonique Gibson MD [address] [address] Surgeon Neurosurgery 01/02/22 Najma Fay PA-C [address] [address] Specialist Neurosurgery 01/02/22 Jed Calix PA-C 175 [facility] [address] [place] [address] Specialist Neurosurgery 01/02/22
--- OUTSIDE RECORDS SUMMARY | 2025-03-18 10:13 | XMS_ITS | Encounter Summary ---
Author Organization [facility] Address [address] [place] [address] Care Team Providers Care Member Of The Legislative Council Name Role Phone Domonique Gibson MD Unavailable [phone] Najma Fay PA-C Unavailable [phone] Jed Calix PA-C Unavailable Cayla Peñaloza NP Primary Care Provider Unavailashkan Quintana, Pcp Primary Care Provider Jim Lewis Primary Care Provider Laura Antunez MD Primary Care Provider Unavailashkan e Encounter Details Date Type Department Care Team Description 10/24/2023 [facility] Medical [facility] Neurosurgery [place] [address] [phone] Jed Calix PA-C [address] [phone] Social History Tobacco Use Types Packs/Day Years [...] on filedocumented in this encounter Care Teams Member Of The Legislative Council Relationship Specialty Start Date End Date Cayla Peñaloza NP [address] [address] PCP - General Internal Medicine 01/31/22 05/25/24 [facility] Pcp [address] [address] PCP - General Internal Medicine 05/26/24 07/28/24 Jim Tan [address] [address] PCP - General Internal Medicine 07/29/24 08/05/24 Laura Car MD [address] [address] PCP - General Family Practice 08/25/24 Domonique Gibson MD [address] [address] Surgeon Neurosurgery 01/02/22 Najma Fay PA-C [address] [address] Specialist Neurosurgery 01/02/22 Jed Calix PA-C [address] [address] Specialist Neurosurgery 01/02/22 documented as of this encounter
--- OUTSIDE RECORDS SUMMARY | 2025-03-18 10:13 | XMS_ITS | Encounter Summary ---
Author Organization [facility] Address [address] [place] [address] Care Team Providers Care Mitering Machine Operator Name Role Phone Domonique Gibson MD Unavailable [phone] Najma Fay PA-C Unavailable [phone] Jed Calix PA-C Unavailable Cayla Peñaloza NP Primary Care Provider Unavailabl e [facility], Pcp Primary Care Provider UnavailJim Hines Primary Care Provider Unavaila Laura Grey MD Primary Care Provider Unavailabl e Encounter Details Date Type Department Care Team Description 04/04/2023 SCAN [facility] Medical [facility] Neurosurgery [place] [address] [address] Najma Fay PA-C [address] [address] Social History Tobacco Use Types Packs/Day Years [...] suspected to have Coronavirus/COVID-19? No / Unsure 03/21/2023 3:44 PM EDT documented as of this encounter Plan of Treatment Not on file documented as of this encounter Visit Diagnoses Not on filedocumented in this encounter Care Teams Mitering Machine Operator Relationship Specialty Start Date End Date Cayla Peñaloza NP [address] [address] PCP - General Internal Medicine 01/31/22 05/25/24 [facility], Pcp [address] [address] PCP - General Internal Medicine 05/26/24 07/28/24 Jim Tan [address] [address] PCP - General Internal Medicine 07/29/24 08/05/24 Laura Car MD [address] [address] PCP - General Family Practice 08/25/24 Domonique Gibson MD [address] [address] Surgeon Neurosurgery 01/02/22 Najma Fay PA-C [address] [address] Specialist Neurosurgery 01/02/22 Jed Calix PA-C [address] [address] Specialist Neurosurgery 01/02/22 documented as of this encounter
--- OUTSIDE RECORDS SUMMARY | 2025-03-18 10:13 | XMS_ITS | Encounter Summary ---
Author Organization [facility] Address [address] [place] [address] Care Team Providers Care Metal Turner Name Role Phone Domonique Gibson MD Unavailable [phone] Najma Fay PA-C Unavailable [phone] Jed Calix PA-C Unavailable Cayla Peñaloza NP Primary Care Provider Unavailabl e [facility], Pcp Primary Care Provider UnavailJim Hines Primary Care Provider Unavaila Laura Grey MD Primary Care Provider Unavailabl e Encounter Details Date Type Department Care Team Description 05/22/2023 SCAN [facility] Medical [facility] Neurosurgery [place] [address] [address] Domonique Gibson MD 175 [place] [address] Social History Tobacco Use Types Packs/Day Years [...] suspected to have Coronavirus/COVID-19? No / Unsure 05/16/2023 1:59 PM EDT documented as of this encounter Plan of Treatment Not on file documented as of this encounter Visit Diagnoses Not on filedocumented in this encounter Care Teams Metal Turner Relationship Specialty Start Date End Date Cayla Peñaloza NP [address] [address] PCP - General Internal Medicine 01/31/22 05/25/24 [facility], Pcp [address] [address] PCP - General Internal Medicine 05/26/24 07/28/24 Jim Tan [address] [address] PCP - General Internal Medicine 07/29/24 08/05/24 Laura Car MD [address] [address] PCP - General Family Practice 08/25/24 Domonique Gibson MD [address] [address] Surgeon Neurosurgery 01/02/22 Najma Fay PA-C [address] [address] Specialist Neurosurgery 01/02/22 Jed Calix PA-C [address] [address] Specialist Neurosurgery 01/02/22 documented as of this encounter
--- OUTSIDE RECORDS SUMMARY | 2025-03-18 10:13 | XMS_ITS | Encounter Summary ---
Author Organization [facility] Address [address] [place] [address] Care Team Providers Care Freelance Interpreter/Translator Name Role Phone Domonique Gibson MD Unavailable [phone] Najma Fay PA-C Unavailable [phone] Jed Calix PA-C Unavailable [phone] Cayla Peñaloza NP Primary Care Provider Unavailabl e [facility], Pcp Primary Care Provider Unavailabl Jim Rowland Primary Care Provider Unavaila Laura Grey MD Primary Care Provider Unavailabl e Encounter Details Date Type Department Care Team Description 04/04/2023 SCAN [facility] Medical [facility] Neurosurgery [place] [address] [address] Domonique Gibson MD 175 [place] [address] Social History Tobacco Use Types Packs/Day Years [...] on filedocumented in this encounter Care Teams Freelance Interpreter/Translator Relationship Specialty Start Date End Date Cayla Peñaloza NP [address] [place] [address] PCP - General Internal Medicine 01/31/22 05/25/24 [facility], Pcp [address] [address] PCP - General Internal Medicine 05/26/24 07/28/24 Jim Tan [address] [address] PCP - General Internal Medicine 07/29/24 08/05/24 Laura Car MD [address] [address] PCP - General Family Practice 08/25/24 Domonique Gibson MD [address] [address] Surgeon Neurosurgery 01/02/22 Najma Fay PA-C [address] [address] Specialist Neurosurgery 01/02/22 Jed Calix PA-C [address] [address] Specialist Neurosurgery 01/02/22 documented as of this encounter
--- OUTSIDE RECORDS SUMMARY | 2025-03-18 10:13 | XMS_ITS | Encounter Summary ---
Author Organization [facility] Address [address] [place] [address] Care Team Providers Care Roading Engineer Name Role Phone Domonique Gibson MD Unavailable [phone] Najma Fay PA-C Unavailable [phone] Jed Calix PA-C Unavailable Laura Car MD Primary Care Provider Unavailabl e Encounter Details Date Type Department Care Team Description 08/19/2024 SCAN [facility] Medical [facility] Neurosurgery [place] [address] [id number] Najma Fay PA-C [address] [id number] Social History Tobacco Use Types Packs/Day Years [...] on filedocumented in this encounter Care Teams Roading Engineer Relationship Specialty Start Date End Date Laura Car MD [address] [address] PCP - General Family Practice 08/25/24 Domonique Gibson MD [address] [id number] Surgeon Neurosurgery 01/02/22 Najma Fay PA-C 175 [facility] [address] [place] [address] Specialist Neurosurgery 01/02/22 Jed Calix PA-C [address] [address] Specialist Neurosurgery 01/02/22 documented as of this encounter
--- OUTSIDE RECORDS SUMMARY | 2025-03-18 10:13 | XMS_ITS ---
Author Organization [facility] Address [address] [place] [address] Care Team Providers Care Purler Name Role Phone Candice John Primary Care Provider Aria Day [phone] Encounters Encounter Location Date Provider Diagnosis [facility] [address] [place] [address] 06/08/2024 Aria Dodd Plan Of Treatment Next Appt Details Provider Name:Aria Dodd , 04/19/2025 02:15:00 PM, [address] [place] [address], [phone], Progress Notes * Evelyne CLAUDIO MDOB: (64 yo F)Acc No.[id number]:06/08/2024 Progress Note Patient:?Felicity CLAUDIO Provider:?Aria Dodd DPM :1960???Age:63 Y???Sex:Female D ate:06/08/2024 Address:[address] [place], [place] [address], [place]-[id number] Pcp:Candice John Subjective: * Chief Complaints: * ??? * Medical History:? Objective: * Vitals:? Assessment: Plan: * Treatment: * Images: * The named appointment provid er may or may not be the originator of this progress note, and it is not deemed complete until electronically signed by the appointment provider. Sign off status: Pending * Provider:?Aria Dodd DPM Date:?2023 Generated for Rehan sullivan/Wali/Elba on:?03/18/2025 10:13 AM EDT
--- OUTSIDE RECORDS SUMMARY | 2025-03-18 10:13 | XMS_ITS ---
Author Organization [facility] Address [address] [place] [address] Care Team Providers Care Plant Protection Guard Name Role Phone Cayla Peñaloza NP Primary [...] Problem Status W/U Status Risk Notes Problem 274233192 Personal history of colonic polyps (Z86.010) Active confirmed Problem 24858642 Drug-induced constipation (K59.03) Active confirmed Problem 594227283 Colon cancer screening (Z12.11) Active confirmed Problem 465850518 Gastroesophageal reflux disease, unspecified whether esophagitis present (K21.9) Active confirmed Vital Signs Temperature 97.7 degrees Fahrenheit 11/27/19 24 Blood pressure systolic 000 mm Hg 11/27/19 24 Blood pressure diastolic 00 mm Hg 024 Height 63.5 in 11/27/2023 Weight 171 lb 5 oz lbs 11/27/2023 BMI 29.87 kg/m2 11/27/2023 Encounters Encounter Location Date Provider Diagnosis [facility] [address] [place] [address] 11/27/2023 Getachew Toscano Jr Drug-induced constipation K59.03 [...] * BEAR KRAUSE MDOB: (63 yo F)Acc No.[id number]:11/27/2023 Progress Notes Patient:?AMANDA KRAUSE Provider:?Getachew Toscano MD :1960???Age:63 Y???Sex:Female D ate:11/27/2023 Address:[address] [place], [place] [id number] Pcp:Cayla Peñaloza NP Subjective: * Chief Complaints: [...] MD Date:?0 11/27/2023 Generated for Rehan sullivan/Wali/eTransmitting on:?03/18/2025 10:12 AM EDT History and Physical Notes * HPI [...]
--- OUTSIDE RECORDS SUMMARY | 2025-03-18 10:13 | XMS_ITS | Encounter Summary ---
Author Organization [facility] Address [address] [place] [address] Care Team Providers Care Principal Technical Architect Name Role Phone Domonique Gibson MD Unavailable [phone] Najma Fay PA-C Unavailable [phone] Jed Calix PA-C Unavailable [phone] Cayla Peñaloza NP Primary Care Provider Unavailabl e [facility], Pcp Primary Care Provider Unavailabl e Jim Tan Primary Care Provider Unavaila Laura Grey MD Primary Care Provider Unavailabl e Reason for Visit * Reason Onset Date Comments Faxed Order 01/01/2023 Encounter Details Date Type Department Care Team Description 01/01/2023 Telephone [facility] Medical [facility] [address] [facility] [address] [place] [address] Laurel Haynes PA-C 175 [facility] [address] [place] [address] Faxed Order Social History Tobacco Use Types Packs/Day Years [...] suspected to have Coronavirus/COVID-19? No / Unsure 12/28/2022 1:27 PM EST documented as of this encounter Miscellaneous Notes * Telephone Encounter - Angelica Segundo - 01/10/2023 11:15 AM EDT EMG apt. Booked 01/24/23 @11:30am. Pt is aware * Telephone Encounter - Jennifer Valderrama - 01/01/2023 9:55 AM EST Please see below- Faxed request to EMG department at [facility] [id number], they will contact patient to schedule apt, fax me the date & time. documented in this encounter Plan of Treatment Not on file documented as of this encounter Visit Diagnoses Not on filedocumented in this encounter Care Teams Principal Technical Architect Relationship Specialty Start Date End Date Cayla Peñaloza NP [address] [address] PCP - General Internal Medicine 01/31/22 05/25/24 [facility], Pcp [address] [address] PCP - General Internal Medicine 05/26/24 07/28/24 Jim Tan [address] [address] PCP - General Internal Medicine 07/29/24 08/05/24 Laura Car MD [address] [address] PCP - General Family Practice 08/25/24 Domonique Gibson MD [address] [address] Surgeon Neurosurgery 01/02/22 Najma Fay PA-C [address] [address] Specialist Neurosurgery 01/02/22 Jed Calix PA-C [address] [address] Specialist Neurosurgery 01/02/22 documented as of this encounter
--- OUTSIDE RECORDS SUMMARY | 2025-03-18 10:13 | XMS_ITS | Encounter Summary ---
Author Organization [facility] Address [address] [place] [address] Care Team Providers Care Sleep Lab Technologist Name Role Phone Domonique Gibson MD Unavailable [phone] Najma Fay PA-C Unavailable Jed Calix PA-C Unavailable [phone] Cayla Peñaloza NP Primary Care Provider Unavailabl e [facility], Pcp Primary Care Provider Unavailabl Jim Rowland Primary Care Provider Unavaila Laura Grey MD Primary Care Provider Unavailabl e Encounter Details Date Type Department Care Team Description 06/07/2023 Orders Only [facility] Medical [facility] [address] [address] Yu Hernández MD [address] [address] Cervical stenosis of spinal canal Social History Tobacco Use Types Packs/Day Years [...] on file documented as of this encounter Procedures Procedure Name Priority Date/Time Associated Diagnosis Comments MRI OF CERVICAL SPINE W/WO CONTRAST Routine 05/22/2023 Cervical stenosis of spinal canal documented in this encounter Results * MRI OF CERVICAL SPINE W/WO CONTRAST (05/22/2023) Yu Hernández MD MRI [facility] documented in this encounter Visit Diagnoses Diagnosis Cervical stenosis of spinal canal Spinal stenosis in cervical region documented in this encounter Care Teams Sleep Lab Technologist Relationship Specialty Start Date End Date Cayla Peñaloza NP [address] [address] PCP - General Internal Medicine 01/31/22 05/25/24 [facility], Pcp [address] [address] PCP - General Internal Medicine 05/26/24 07/28/24 Jim Tan [address] [address] PCP - General Internal Medicine 07/29/24 08/05/24 Laura Car MD [address] [address] PCP - General Family Practice 08/25/24 Domonique Gibson MD [address] [address] Surgeon Neurosurgery 01/02/22 Najma Fay PA-C [address] [address] Specialist Neurosurgery 01/02/22 Jed Calix PA-C [address] [address] Specialist Neurosurgery 01/02/22 documented as of this encounter
--- OUTSIDE RECORDS SUMMARY | 2025-03-18 10:13 | XMS_ITS | Encounter Summary ---
Author Organization [facility] Address [address] [place] [address] Care Team Providers Care Waterworks Pump Station Operator Name Role Phone Domonique Gibson MD Unavailable [phone] Najma Fay PA-C Unavailable [phone] Jed Calix PA-C Unavailable [phone] Cyala Peñaloza NP Primary Care Provider Diaz mcintosh [facility], Pcp Primary Care Provider Jim Lewis Primary Care Provider Laura Antunez MD Primary Care Provider Unavailashkan e Encounter Details Date Type Department Care Team Description 02/02/2022 Release of Information Medical Records [address] [place] [address] Abstract, Provider Social History Tobacco Use Types Packs/Day [...] suspected to have Coronavirus/COVID-19? No / Unsure 01/31/2022 9:20 AM EDT documented as of this encounter Plan of Treatment Not on file documented as of this encounter Visit Diagnoses Not on filedocumented in this encounter Care Teams Waterworks Pump Station Operator Relationship Specialty Start Date End Date Cayla Peñaloza, TAMIA 175 [facility] [address] [place] [address] PCP - General Internal Medicine 01/31/22 05/25/24 [facility] Pcp [address] [address] PCP - General Internal Medicine 05/26/24 07/28/24 Jim Tan [address] [address] PCP - General Internal Medicine 07/29/24 08/05/24 Laura Car MD [address] [address] PCP - General Family Practice 08/25/24 Domonique Gibson MD [address] [address] Surgeon Neurosurgery 01/02/22 Najma Fay PA-C [address] [address] Specialist Neurosurgery 01/02/22 Jed Calix PA-C [address] [address] Specialist Neurosurgery 01/02/22 documented as of this encounter
--- OUTSIDE RECORDS SUMMARY | 2025-03-18 10:13 | XMS_ITS | Encounter Summary ---
Author Organization [facility] Address [address] [place] [address] Care Team Providers Care Health Information Coder Name Role Phone Domonique Gibson MD Unavailable [phone] Najma Fay PA-C Unavailable [phone] Jed Calix PA-C Unavailable Laura Car MD Primary Care Provider Unavailabl e Encounter Details Date Type Department Care Team Description 08/18/2024 SCAN [facility] Medical [facility] Neurosurgery [place] [address] [phone] Najma Fay PA-C [address] [id number] Social History Tobacco Use Types Packs/Day Years [...] on filedocumented in this encounter Care Teams Health Information Coder Relationship Specialty Start Date End Date Laura Car MD [address] [address] PCP - General Family Practice 08/25/24 Domonique Gibson MD [address] [phone] Surgeon Neurosurgery 01/02/22 Najma Fay PA-C 175 [facility] [address] [place] [address] Specialist Neurosurgery 01/02/22 Jed Calix PA-C [address] [address] Specialist Neurosurgery 01/02/22 documented as of this encounter
--- OUTSIDE RECORDS SUMMARY | 2025-03-18 10:14 | XMS_ITS ---
Author Organization [facility] Address [address] [facility] [place] [address] Care Team Providers Care Ad Setter Name Role Phone Alvaro Candice Primary Care Provider Diaz dayna Aria Dodd Unavailable [phone] Jun Limon Unavailable [phone] REASON FOR VISIT [employer] Encounters Encounter Location Date Provider Diagnosis [address] [address] 04/22/2024 Jun Limon Plan Of Treatment Next Appt Details Provider Name:Aria Dodd , 04/19/2025 02:15:00 PM, [address] [place], [address], Progress Notes * Evelyne CLAUDIO MDOB: (63 yo F)Acc No.[id number]:04/22/2024 Patient:?Felicity Claudio :1960???Age:63 Y???Sex:Female Address: [place] [address] * true * Date:? Generated for Printi ng/Fayamiletg/eTransmitting on:?03/18/2025 10:13 AM EDT
--- OUTSIDE RECORDS SUMMARY | 2025-03-18 10:14 | XMS_ITS | Patient Health Record ---
Author Organization [facility] Address [address] [place] [address] Care Team Providers Care Registration Scheduling Specialist Name Role Phone Anabela CANTRELL, Cayla Primary [...] Problem Status W/U Status Risk Notes Problem [id number] Colon cancer screening (Z12.11) Active confirmed Problem 915552374 Personal history of colonic polyps (Z86.010) Active confirmed Problem 49244311 Drug-induced constipation (K59.03) Active confirmed Problem 924568922 Gastroesophageal reflux disease, unspecified whether esophagitis present (K21.9) Active confirmed Plan Of Treatment Future Test Test Name Order Date COLONOSCOPY 11/04/2014 COLONOSCOPY 11/27/2023 Insurance Providers Payer Name Payer Address Payer Phone Subscriber Number Group Number Insured Name Patient Relationship to Insured Coverage Start Date Coverage End Date [facility] [address] [place] [address] [phone] [id number] BEAR KRAUSE Self - patient is the [...]
[2025-03-18 13:02] LABS: MANUAL DIFF FLAG NO
[2025-03-18 13:07] LABS: Basophils Absolute Auto 0.1 X10*3/uL (0.0-0.2); Basophils Percent Auto 0.8 % (0-2); Eosinophils Absolute Auto 0.3 X10*3/uL (0.0-0.4); Eosinophils Percent Auto 4.5 % (0-4); Hematocrit 35.8 % (37.0-47.0); Hemoglobin 12.3 g/dl (12.0-16.0); Imm Gran Abs Auto 0.02 X10*3/uL (0.00-0.03); Imm Gran Pct Auto 0.3 % (0.0-0.4); Lymphocytes Absolute Auto 1.9 X10*3/uL (1.2-4.9); Lymphocytes Percent Auto 31.7 % (20-40); Mean Corpuscular HGB Conc 34.4 g/dl (31.0-35.0); Mean Corpuscular Hemoglobin 33.8 pg (27.0-33.0); Mean Corpuscular Volume 98.4 fL (80.0-98.0); Mean Platelet Volume 10.1 fL (9.4-12.3); Monocytes Absolute Auto 0.8 X10*3/uL (0.1-1.2); Monocytes Percent Auto 13.8 % (2-11); Neutrophils Absolute Auto 2.9 x10*3/uL (2.0-8.3); Neutrophils Percent Auto 48.9 % (45-73); Platelet Count 242 X10*3/uL (160-400); Red Blood Count 3.64 X10*6/uL (4.20-5.50); Red Cell Distribution Width 13.4 % (11.0-16.0)
[2025-03-18 13:30] LABS: Alanine Aminotransferase 8 U/L (0-31); Albumin Level 4.3 g/dL (3.5-5.0); Alkaline Phosphatase 76 U/L (39-117); Anion Gap 15 (12-20); Aspartate Amino Transferase 28 U/L (5-31); Bilirubin Total 0.3 mg/dL (0.0-1.0); Blood Urea Nitrogen 18 mg/dL (9-16); C Reactive Protein 0.68 mg/dL (< or = 0.50); Carbon Dioxide 29 mmol/L (22-29); Chloride 103 mmol/L (96-108); Cholesterol 170 mg/dL (<200); Estimated Glomerular Filt Rate 48; Glucose Random 75 mg/dL (60-115); HDL Cholesterol 73 mg/dL (>40); LDL Cholesterol Calculated 82 mg/dL (<100); Potassium 3.8 mmol/L (3.3-5.1); Sodium 143 mmol/L (135-145); Total Protein 6.9 g/dL (6.5-8.0); Triglycerides 77 mg/dL (<150)
[2025-03-18 13:44] LABS: Alanine Aminotransferase 7 U/L (0-31); Albumin Level 4.2 g/dL (3.5-5.0); Alkaline Phosphatase 77 U/L (39-117); Anion Gap 15 (12-20); Aspartate Amino Transferase 28 U/L (5-31); Bilirubin Total 0.3 mg/dL (0.0-1.0); Blood Urea Nitrogen 18 mg/dL (9-16); Calcium 9.2 mg/dL (8.4-10.2); Carbon Dioxide 29 mmol/L (22-29); Chloride 103 mmol/L (96-108); Erythrocyte Sedimentation Rate 12 MM/HR (0-20); Estimated Glomerular Filt Rate 47; Glucose Random 75 mg/dL (60-115); Potassium 3.9 mmol/L (3.3-5.1); Sodium 143 mmol/L (135-145); Total Protein 6.9 g/dL (6.5-8.0)
[2025-03-18 13:50] LABS: B Type Natriuretic Peptide 73 pg/mL (<100)
[2025-03-18 14:01] LABS: Free T4 (Free Thyroxine) 0.95 ng/dL (0.71-1.85); TSH reflex Free T4 3.69 uIU/mL (0.32-4.0); Vitamin D 25-OH Total 56.5 ng/mL (>30)
[2025-03-18 14:03] LABS: Folate 14.4 ng/mL (> or = 4.0); Vitamin B12 544 pg/mL (200-900)
[2025-03-19 03:51] LABS: Hepatitis A Antibody IgM 0.13 Index (0-0.79); ~Hepatitis A Antibody IgM Nonreactive (Nonreactive)
[2025-03-19 04:14] LABS: HBS Num1 0.26 mIU/mL (0-7.99); HBsAGNum1 0.38 S/CO (0.00-0.99); Hepatitis B Core Antibody Nonreactive (Nonreactive); Hepatitis B Surface Antigen Negative (Negative); ~HepC Num1 0.11 S/CO (0.00-0.79); ~Hepatitis B Surface Antibody NONREACTIVE (Nonreactive); ~Hepatitis C Antibody Nonreactive (Nonreactive)
[2025-03-20 21:09] LABS: TS Negative Control Passed; TS Panel A 0; TS Panel B 0; TS Positive Control Passed; TSpotTB Negative (Negative)
== END 2025-03-18 09:52 | disposition home or self-care (01) ==
LOC: HO.HMGCLDS 09:51
PROVIDERS: Internal Medicine Cardiovascular Disease; Referring Provider Student in an Organized Health Care Education/Training Program
DX: R60.0 Localized edema (principal)
CPT/HCPCS: 36415; 80053; 80061; 82306; 82607; 82746; 83880; 84439; 84443; 85025; 85652; 86140; 86481; 86704; 86706; 86709; 86803; 87340

== ENCOUNTER → 2025-03-19 12:53 | Outpatient (REF) | payer MEDICARE, SELFPAY ==
--- OUTSIDE RECORDS SUMMARY | 2025-03-19 12:55 | XMS_ITS | Clinical Summary ---
Author Organization [facility] Address [address] [place] [address] Care Team Providers Care Managing Attorney Name Role Phone Cayla Peñaloza NP Primary Care Provider [phone] Allergies Active Allergy Reactions Criticality Noted Date [...] metroNIDAZOLE (FLAGYL) 500 MG tabletIndicatio ns:Abscess of melter operator space of mouth Take 1 tablet (500 mg total) by mouth 2 (two) times a day. Take with meals or food to reduce stomach upset. 44 tablet 2 Active cephalexin (KEFLEX) 500 MG capsuleIndicati ons:Abscess of melter operator space of mouth Take 2 capsules (1,000 mg total) by mouth 2 (two) times a day. 88 capsule 2 Active baclofen (LIORESAL) 5 MG tabletIndicatio ns:Abscess of melter operator space of mouth Take 3 tablets [...] Problem Noted Date Diagnosed Date Abscess of melter operator space of mouth 01/16/2022 Overview (01/16/2022): Added automatically from request for surgery [id number] Facial abscess 01/16/2022 Family History Medical History [...] age to complete this topic Insurance [facility] MEDICARE Advance Directives * Full Code (Latest Code Status on File) Date Activated Date Inactivated Comments 01/16/2022 11:40 PM Care Teams Managing Attorney Relationship Specialty Start Date End Date Cayla Peñaloza NP [address] [place] [address] PCP - General Family Medicine 01/16/22
--- NOTE | 2025-03-19 13:07 | CA_ITS ---
Transthoracic Echocardiogram Patient (Last, First, Middle): Evelyne Claudio M Gender: Female Date of : 1960 Age: 64 Procedure Date: 03/19/2025 Procedure Type: Transthoracic Echocardiogram Location: OP Height: 157.48 cm Weight: 85.28 kg BSA: 1.86 m2 Heart Rate: bpm BP: 130 / 80 mmHg Mixer Lever Operator: Referring MD: Ryne Taylor MD Symptoms: R60.0 - Localized edema Study Quality: Good ECG Rhythm: Sinus Conclusions: - Normal left ventricular size and systolic function. The visually estimated ejection fraction is between 60-65%. There is no evidence of regional wall motion abnormalities. Diastolic function is normal for age. - Mildly increased right ventricular cavity size. There is normal right ventricular systolic function. - There is mild dilatation of the ascending aorta measuring 3.50 cm. Findings Left Ventricle Normal left ventricular size and systolic function. The visually estimated ejection fraction is between 60-65%. There is no evidence of regional wall motion abnormalities. Diastolic function is normal for age. Right Ventricle Mildly increased right ventricular cavity size. There is normal right ventricular systolic function. Atria The left atrium is normal in size. The right atrium is mildly dilated. Aortic Valve There is a normal trileaflet aortic valve. There is mild calcification of the aortic valve. There is no aortic valve stenosis. There is no aortic valve regurgitation. Mitral Valve The mitral valve appears normal. There is no mitral valve regurgitation. There is no mitral valve stenosis. Pulmonic Valve The pulmonic valve is likely normal. Tricuspid Valve Normal tricuspid valve structure. There is no tricuspid valve regurgitation. Normal right atrial pressure. There is no evidence of pulmonary hypertension. Great Vessels There is mild dilatation of the ascending aorta measuring 3.50 cm. The visualized portions of the pulmonary artery and branches are normal. Venous The inferior vena cava is normal in size and collapses greater than 50% with inspiration. Pericardium/Pleural There is no evidence of pericardial effusion. Prior Study Comparison Changes noted compared to prior study dated: 12/03/2022. RV mildly dilated. Measurements 2D Linear Measurements Ao Root: 3.10 2.1-3.5 cm LVOT Diam: 2.30 3.0+(-)1.3 cm 2D Systolic Function EF 4C: 63.90 >55% EF 2C: 67.70 >55% EF BiP: 63.80 >55% Mitral Valve MV Pk E: 0.47 MV PK A: 0.75 MV Decel Time: 169.00 E/A: 0.60 E'Lateral: 9.95 E'Medial: 6.68 E/E' Med: 7.00 E/E' Lat: 4.70 PHT: 49.00 MVA PHT: 4.49 Decel Dickens: 2.76 Aortic Valve AoV Pk Mamadou: 1.33 AoV Mn Mamadou: 0.88 AoV VTI: 0.27 AoV Pk Grad: 7.00 Aov Mn Grad: 4.00 LYNNE Cont.VTI: 3.46 LVOT LVOT Pk Mamadou: 1.05 LVOT Mn Mamadou: 0.65 LVOT VTI: 0.22 LVOT Pk Grad: 4.00 LVOT Mn Grad: 2.00 LVOT Diam: 2.30 LVOT Area: 4.15 Diastolic Function MV Pk E: 0.47 MV Pk A: 0.75 E/A: 0.60 E'Medial: 6.68 E/E' Med: 7.00 E' Laterial: 9.95 E/E' Lat: 4.70 Right Ventricle TAPSE (mm): 24.00 TVS' Mamadou: 11.00 Tricuspid Valve TR Pk Mamadou: 2.64 TR Pk Grad: 28.00 RA Press: 3.00 RVSP: 31.00 Great Vessels Aorta Ao Root-2D: 3.10 2.0-3.7 cm Ao Asc: 3.50 2.1-3.4 cm Pulmonary Valve PV Pk Mamadou: 1.09 Peak PV Grad: 5.00 Updated in Other Vendor System with Status of Final Erich Correa MD electronically signed on 03/22/2025 11:42:31 PM with status of Final
== END ==
LOC: HO.CARD 12:53
PROVIDERS: Visit Provider Internal Medicine Cardiovascular Disease
DX: R60.0 Localized edema (principal)
CPT/HCPCS: 93306

== ENCOUNTER → 2025-03-19 13:07 | Outpatient (BNV) | payer MEDICARE, SELFPAY | PROVIDERS: Visit Provider Internal Medicine Cardiovascular Disease | DX: I35.8 Other nonrheumatic aortic valve disorders (principal) | CPT/HCPCS: 93306 ==

== ENCOUNTER 2025-03-29 10:49 | Outpatient (REF) | payer MEDICARE, SELFPAY ==
--- NOTE | ~2025-03-29 | CT_ITS ---
CLINICAL HISTORY: F17.210 - Nicotine dependence, cigarettes, uncomplicated CT lung cancer screening (LDCT) Comparison: None Technique: Axial CT images of the chest using low-dose technique. Effective radiation dose total: DLP 79.2 mGycm, CTDIvol 2.3 mGy. Findings: Mild emphysematous changes throughout the lungs. No concerning pulmonary nodules or infiltrates. Scattered juxtapleural areas of scarring or atelectasis. No pleural effusion. No enlarged lymph nodes. Mild vascular calcification of the thoracic aorta and coronary arteries. No free fluid or free air within the upper abdomen. No acute bony lesions. Impression: Mild emphysema without concerning pulmonary nodule. Category 2: Benign appearance. Continued annual lung cancer screening chest CT suggested. Category 1: Normal; continue annual screening Category 2: Benign appearance or behavior, continue annual screening Category 3: Probably benign, [address] recommended Category 4A: Suspicious, [address] recommended; may consider PET/CT Category 4B: Suspicious, Additional diagnostics and/or tissue sampling recommended Category 4X: Suspicious, Additional diagnostics and/or tissue sampling recommended Category 0: Recalls (incomplete screen due to Incomplete coverage, Noise, Respiratory motion, Expiration, Obscured by acute abnormality) This document has been electronically signed by: Nii De La Vega MD on 03/30/2025 09:20:12
--- OUTSIDE RECORDS SUMMARY | 2025-03-29 11:58 | XMS_ITS | Continuity of Care Document ---
Author Organization [facility] Address [address] [place] [address] Phone Care Team Providers Care Communication Coordinator Name Role Phone Flavio RIBEIRO, RVLeanne, NO, [...] E&M Established 15 Mins- [place] & [place] [facility], [address] [place], [id number], [place] tel:[phone] CVR - [place] Varicose veins of bilateral lower extremities with other complication sLymphedema, not elsewhere classified 4 Flavio RIBEIRO RVT, NO Davila. [address] [address], [place], [place], [id number], [place]. tel:[phone] Referring Provider: Cayla Peñaloza NP, [address] [facility] [place], [address]. tel:[phone] [facility], [address] [place] [address] [address]Javi [place], [id number], [place] tel:[phone] CVR - [place] Encounter for follow-up examination after completed treatment for conditions other than malignant neChronic venous hypertension (idiopathic) with other complication s of bilateral lower extremity 4 Flavio RIBEIRO RVT, NO Davila. [address] [address], [place], [place], [id number], [place]. tel:[phone] Referring Provider: Cayla Peñaloza NP, [address] [facility] [place], [address]. tel:[phone] [facility], [address] [place] [address] [address]Javi [place], [id number], [place] tel:[phone] CVR - [place] Varicose veins of left lower extremity with other complication s 4 Wyatt Briceno. [address] [facility] [facility] [address], [place], [place], [id number], [place]. tel:[phone] Referring Provider: Cayla Peñaloza NP, [address] [facility] [place], [address]. tel:[phone] [facility], [address] [place] [address] [address]Javi [place], [id number], [place] tel:[phone] CVR - [place] Encounter for follow-up examination after completed treatment for conditions other than malignant nePain in right leg 0 4 Flavio RIBEIRO RVT, NO Davila. [address] [place] [address], Suite [facility], [place], [id number], [place]. tel:[phone] Referring Provider: Cayla Peñaloza NP, [address] [facility] [place], [address]. tel:[phone] [facility], [address] [place] [address] [address]Javi [place], [id number], [place] tel:[phone] CVR - [place] Chronic venous hypertension (idiopathic) with inflammation of right lower extremity Nov- 4 Flavio RIBEIRO RVT, NO Davila. [address] [place] [address], Suite [facility], [place], [id number], [place]. tel:[phone] Referring Provider: Cayla Peñaloza NP, [address] [place] [address] [place] [address] [place], [address]. tel:[phone] [facility], [address] [place] [address] Dr [address]Javi [place], [id number], [place] tel:[phone] CVR - [place] - [place] Encounter for follow-up examination after completed treatment for conditions other than malignant neVaricose veins of right lower extremity with pain Nov- 4 Flavio RIBEIRO RVT, NO Davila. [address] [place] [address], [address] [address], [place], [id number], [place]. tel:[phone] Referring Provider: Cayla Peñaloza NP, [address] [facility] [place], [address]. tel:[phone] [facility], [address] [place] [address] [address]Javi [place], [id number], [place] tel:[phone] CVR - [facility] Varicose veins of right lower extremity with other complication s 4 Flavio RIBEIRO RVT, RPVI Robert. [address] [place] [address], [address], [place], [id number], [place]. tel:[phone] Referring Provider: Cayla Peñaloza NP, [address] [facility] [place], [address]. tel:[phone] Offic/outpt E&m Estab 5 Min Trial - Telemedicine [facility], [address] [place] [address] Dr [address]Javi [place], [id number], [place] tel:[phone] [facility] Localized edemaCramp and spasmRestles s legs syndromeVeno us insufficienc y (chronic) (peripheral) Disorder of pigmentation , unspecified 3 Wyatt Briceno. [address] [facility] [address], [facility] [place], [id number], [place]. tel:[phone] Referring Provider: Cayla Peñaloza NP, [address] [facility] [place], [address]. tel:[phone] Offic Cons New/estab Mod-hi 60 [facility], [address] [place] [address] [address]Javi [place], [id number], [place] tel:[phone] CV - [facility] Varicose veins of bilateral lower extremities with other complication sVaricose veins of right lower extremity with inflammation Varicose veins of left lower extremity with inflammation Localized edemaRestles s legs syndromeLymp hedema, not elsewhere classifiedDi sorder of pigmentation , unspecifiedH ereditary lymphedemaCr amp and spasm Jul- 3 Pranay RIBEIRO FACS RVT RPGEMA Barahona. [address] [facility] [address], [facility] [place], [address], [place]. tel:[phone] Referring Provider: Cayla Peñaloza NP, [address] [facility] [place], [address]. tel:[phone] [facility], [address] [place] [address] [address]Javi [place], [id number], [place] tel:[phone] [facility] Chronic venous hypertension (idiopathic) with other complication s of bilateral lower extremity 3 Pranay RIBEIRO FACS RVT NO Barahona. [address] [facility], [address], [place], [address], [place]. tel:[phone] Referring Provider: Cayla Peñaloza SECTION HAND, [address] [place] [address] Dr [address] [facility] , [place], [address]. tel:[phone] Family History Family Member Type Diagnosis Age At Onset No Information Payers Payer name Insurance type Covered green party ID Thea alejandra(s) [employer] [place] [employer] CI [id number] Social History Type Description Quantity Date Captured [...]
== END 2025-03-29 10:50 | disposition home or self-care (01) ==
LOC: HO.CT 10:49
PROVIDERS: Visit Provider Physician Assistant Medical
DX: Z12.2 Encounter for screening for malignant neoplasm of respiratory organs (principal); F17.210 Nicotine dependence, cigarettes, uncomplicated
CPT/HCPCS: 71271

== ENCOUNTER → 2025-03-29 10:51 | Outpatient (BNV) | payer MEDICARE, SELFPAY | PROVIDERS: Visit Provider Radiology Diagnostic Radiology | DX: F17.210 Nicotine dependence, cigarettes, uncomplicated (principal) | CPT/HCPCS: 71271 ==

== ENCOUNTER 2025-04-01 15:31 | Outpatient (AMB) | payer MEDICARE, SELFPAY ==
[2025-04-01 15:35] VITALS: BP 140/76; PULSE 84; O2SAT 97; BMI 34.0
--- NOTE | 2025-04-01 15:35 | A.OFFVIS_ITS ---
Vital Signs 04/01/25 15:35 Height 5 ft 2 in Weight 186 lb 1.122 oz BMI 34.0 BP 140/76 H Blood Pressure Location Lt brachial Position Sitting Pulse 84 Pulse Source Pulse Oximeter Pulse Oximetry (%) 97 Oxygen Delivery Method Room Air Intake Visit Reasons: RA Intake Note: Patient presents for RA follow up today. She would like to discuss her blood work. Allergies lisinopril Allergy (Intermediate, Verified 04/01/25 15:40) Swelling clavulanic acid [From Augmentin] Allergy (Mild, Verified 04/01/25 15:40) RASH aripiprazole [From ABILIFY] Adverse Reaction (Intermediate, Verified 04/01/25 15:40) EDEMA duloxetine [From CYMBALTA] Adverse Reaction (Intermediate, Verified 04/01/25 15:40) WT GAIN/EDEMA Medication List - Last Reconciled 04/01/25 by Kelli Zurita MD albuterol sulfate 90 mcg/actuation 1 puff inhalation Q4H baclofen 10 mg PO TID PRN blood sugar diagnostic (FreeStyle Lite Strips) bupropion HCl XL 300 mg PO DAILY clotrimazole-betamethasone 1-0.05 % 1 appl topical BID cyclobenzaprine 10 mg PO TID docusate sodium 100 mg PO BID furosemide 40 mg (2 x 20 mg) PO DAILY hydroxychloroquine 200 mg PO BID 90 days ibuprofen 600 mg PO Q8H PRN levothyroxine 88 mcg PO DAILY magnesium oxide 400 mg PO ONCE omeprazole 20 mg PO DAILY oxybutynin chloride ER 1 tab PO DAILY oxycodone 10 mg PO TID 3 days oxycodone ER (OxyContin) 15 mg PO BID pregabalin 75 mg PO TID 30 days simvastatin 1 tab PO BEDTIME sulfasalazine 1 g (2 x 500 mg) PO BID 90 days NS trazodone 50 mg PO BEDTIME venlafaxine ER 150 mg PO DAILY HPI Comments Details: Patient is a 64-year-old female current everyday smoker with depression, hypothyroidism, overactive bladder, hyperlipidemia complicated by peripheral vascular disease, GERD, diabetes, recurrent trigger fingers, polyarticular osteoarthritis (s/p bilateral knee replacement) and seronegative rheumatoid arthritis here today for follow up Interval History: Patient last seen 05/19/[address] Leyva. At that time she was following up for her seronegative rheumatoid arthritis on Plaquenil 400 mg daily and sulfasalazine 1 g twice a day. She was noting swelling of her right lower extremity over the past month prior to the visit despite taking regular Lasix. She also complained of left lower back and buttock pain with numbness traveling down her left lower extremity. With respect to her arthritis there was no active synovitis at that time and no changes were made to her medication Rheumatologic History: seroneg dx 2018. MTX (wasn't done due to alcohol abuse) HCQ 2018 SSZ added 07/2023 effective Current Rheumatology Medication(s): Hydroxychloroquine 200mg bid Sulfasalazine 1000mg bid Ibuprofen 600mg tid prn PFSH Medical History Diabetes History of pulmonary embolism Nicotine dependence, cigarettes, uncomplicated Overactive bladder Thyroid disease Elevated cholesterol Spinal stenosis Anxiety Depression HTN (hypertension) Constipation GERD (gastroesophageal reflux disease) Mass of right thigh Long-term use of hydroxychloroquine Alcohol abuse Chronic bronchitis Seronegative rheumatoid arthritis Pilonidal cyst Neuropathy Carpal tunnel syndrome Rheumatoid arthritis Osteomyelitis Osteoarthritis Pleurisy Surgical History History of thoracic spinal fusion Hx of cervical spine surgery History of elbow surgery H/O colonoscopy History of total right knee replacement (TKR) H/O hernia repair History of surgery on arm History of left knee replacement (~2016) Previous back surgery (~2015) Family History Mother CHF (congestive heart failure) Stroke Uterine cancer Father CHF (congestive heart failure) Sister Diabetes Brother Diabetes Pulmonary embolism Other Mental health disorder Substance use disorder Social History Household Members: None Housing: Apartment Are you a primary hospice care consultant to a significant other at home: No Unable to assess alcohol history related to: Unable to respond Alcohol intake: current Alcohol intake frequency: a few times a week Alcohol type: hard liquor Patient Tobacco Use Status: Current everyday Tobacco user Tobacco use type: Cigarette Cigarette Packs Per Day: 1.5 Cigarettes Per Day: 30.0 Years Smoked: 40 e-Cigarette/Vaping Use: Never Used Second Hand Smoke Exposure: Yes Substance Use Type: Marijuana service: No Current occupational status: unemployed Cognitive needs: Yes (walker, cane) Hearing needs: No Vision needs: Yes (Reading glasses) Review of Systems Const Details: Review of Systems Constitutional: Denies fever, chills, weight loss ENT: Denies vision changes, eye pain or eye redness, dental caries, dry mouth GI: Denies nausea, vomiting, diarrhea, abdominal pain, change in BM Pulm: Denies SOB, MESSER, hemoptysis, wheezing Cards: Denies chest pain, palpitations Skin: Denies Raynaud's, rash, nail changes, photosensitivity, BUSINESS LIBRARIAN: Denies headaches, weakness, paresthesias, recurrent falls MSK: as per HPI All other systems reviewed and are unremarkable except noted above Physical Exam Vital Signs: Last Vital Signs Pulse 84 04/01/25 15:35 BP 140/76 H 04/01/25 15:35 Pulse Ox 97 04/01/25 15:35 Oxygen Delivery Method Room Air 04/01/25 15:35 BMI result Body Mass Index 34.0 Vital signs reviewed Physical Examination CONSTITUITIONAL Patient alert and cooperative. Well appearing and in no apparent painful distress HEENT Conjunctiva and sclera clear. No lymphadenopathy. ? CHEST/RESPIRATORY SYSTEM Normal respiratory effort and able to speak in complete sentences. ?Clear to auscultation bilaterally. ?No crackles, rales, rhonchi, wheezes heard. CARDIAC SYSTEM Regular rate and rhythm. ?S1 and S2 heard no murmurs. ?Radial pulses intact bilaterally MSK Hands: ?Able to make a fist. No synovitis noted to the MCPs, PIPs or DIPs. ?Prominenet herbeden's nodes throughout bilateral hands. Has fibrotic changes to the A1 sukumar and tenderness palpation on the jurado side. Has TTP of the MCPs but unsure if this is due to underlying synovitis Wrists: ?Decreased ROM at the wrists without pain. ?No tenderness to palpation or synovitis noted to the wrists. Elbows: Decreased ROM of the right elbow. about 160 degress. Full ROM of the left elbow Shoulders: Full range of active range of motion without pain. No tenderness, weakness, swelling, increased warmth or erythema. Knees: ?Decreased ROM. Scars noted over bilateral knees Ankles: Full range of motion to the left ankle. decreased ROM to the right ankle Feet: ?Negative squeeze test. ?No tenderness to palpation or swelling of the MTPs. Tender points:?No tenderness to palpation of the bilateral trapezius, supraspinatus, greater trochanters, anterior costochondral junctions, bilateral gluteal areas, bilateral suboccipital muscle insertions SKIN Skin intact without rashes. Results Reviewed Results Reviewed: Laboratory Tests 08/18/24 03/18/25 13:41 10:00 WBC 6.0 RBC 3.64 L Hgb 12.3 Hct 35.8 L Plt Count 242 ESR 12 Sodium 143 Potassium 3.9 Chloride 103 Carbon Dioxide 29 BUN 18 H Creatinine 1.17 AST 28 ALT 7 Alkaline Phosphatase 77 C-Reactive Protein 2.62 H 0.68 H 25-OH Vitamin D Total 56.5 Laboratory Tests 01/21/23 02/18/24 11:14 13:55 Rheumatoid Factor < 13.0 Cycl Citrul Peptide IgG <16 MARIELENA Screen NEGATIVE Laboratory Tests 03/18/25 10:00 Hepatitis A IgM Ab Nonreactive Hep Bs Antigen Negative Hep Bs Antibody NONREACTIVE Hep B Core Total Ab Nonreactive Hepatitis C Ab (EIA) Nonreactive TB Test (T-Spot) Com Negative DEXA 02/09/25 FINDINGS: The bone mineral density of the lumbar spine is 1.893 with a T-score of 5.9, and a Z-score of 6.6. This is indicative of normal bone mineral density. This represents a BMD change of -0.7% compared to the prior exam. This is not statistically significant. The bone mineral density of the left total hip is 1.071 with a T-score of 0.5, and a Z-score of 1.1. This is indicative of normal bone mineral density. This represents a BMD change of -8.7% compared to the prior exam. This is statistically significant. The bone mineral density of the left femoral neck is 0.905 with a T-score of -1.0, and a Z-score of -0.1. This is indicative of normal bone mineral density. Assessment & Plan Assessment & Plan (1) Seronegative rheumatoid arthritis: Comment: seroneg dx 2019. MTX (wasn't done due to alcohol abuse) HCQ 2019 SSZ added 07/2023 effective Code(s): M06.00 - Rheumatoid arthritis without rheumatoid factor, unspecified site Category: Medical Plan: #Seropositive RA Patient is a 64-year-old female with seropositive rheumatoid arthritis here today for follow up Overall patient currently in remission on Plaquenil and sulfasalazine. Having difficulty swallowing the sulfasalazine pills which is precluding her fr om properly taking the medication. Discussed starting an injectable however patient would like to defer at this time. Plan - Hydroxychloroquine 200mg bid - Sulfasalazine 1000mg bid - RTC 4 months - Labs before visit: CBC, CMP, ESR, CRP, Hepatitis panel and T spot (2) Generalized osteoarthritis: Code(s): M15.9 - Polyosteoarthritis, unspecified Plan: #Polyarticular OA Patient with polyarticular osteoarthritis with his complicating rheumatoid arthritis. Because her inflammatory markers have normalized I am inclined to believe that her pain is due to her osteoarthritis and not rheumatoid arthritis. She also has problems with recurrent trigger fingers in her hands which is also contributing to her pain as well. I recommended that she follow up with hand surgery for further treatment options. She also complained of right ankle pain and on examination there is reduced moreno ability at the right ankle. 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 Plan: #Long-term Use of Hydroxychloroquine Discussed with patient the risks and benefits of hydroxychloroquine in managing the rheumatic condition Benefits include: - Reduced pain, reduce mortality, maintenance of remission and reduction of flares Risks include: - GI upset, skin hyperpigmentation, retinal toxicity (especially after more than 5 years of use), myopathy Advised yearly ophthalmology visits (4) Encounter for monitoring sulfasalazine therapy: Code(s): Z51.81 - Encounter for therapeutic drug level monitoring; Z79.899 - Other nursing home (current) drug therapy Plan: #Long-term Use of Sulphasalazine Discussed with patient the risks and benefits of sulfasalazine in the management of the rheumatic condition Benefits include: - Reduced pain, reduce mortality, maintenance of remission then reduction of flares Risks include: - GI upset, hemolysis (especially if G6PD deficiency), eosinophilia, headache, dizziness, rash, elevated LFTs Plan I spent 30 minutes reviewing the record and labs, taking a history, examining the patient, discussing the treatment plan, ordering diagnostic work up and documenting in the medical record Orders: Orders XR ankle RT min 3V Today M15.9 - Polyosteoarthritis, unspecified, M25.571 - Pain in right ankle and joints of right foot, M25.572 - Pain in left ankle and joints of left foot XR ankle LT min 3V Today M15.9 - Polyosteoarthritis, unspecified, M25.571 - Pain in right ankle and joints of right foot, M25.572 - Pain in left ankle and joints of left foot Coding Level of Care Code Est Pt Level 4 (38689) Complex EM visit Add On G2211 Diagnoses Seronegative rheumatoid arthritis M06.00 Generalized osteoarthritis M15.9 Encounter for monitoring of hydroxychloroquine therapy Z51.81; Z79.899 Encounter for monitoring sulfasalazine therapy Z51.81; Z79.899
--- OUTSIDE RECORDS SUMMARY | 2025-04-01 18:00 | XMS_ITS | Clinical Summary ---
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 Take with meals or food to reduce stomach upset. 44 tablet 2 Active cephalexin (KEFLEX) 500 MG capsuleIndicati ons:Abscess of bundle wrapper space of mouth Take 2 capsules (1,000 mg total) by mouth 2 (two) times a day. 88 capsule 2 Active baclofen (LIORESAL) 5 MG tabletIndicatio ns:Abscess of bundle wrapper space of mouth Take 3 tablets (15 [...] Problem Noted Date Diagnosed Date Abscess of bundle wrapper space of mouth 01/16/2022 Overview (01/16/2022): Added automatically from request for surgery [id number] Facial abscess 01/16/2022 Family History Medical History [...] patient's age to complete this topic Insurance [facility] MEDICARE Advance Directives * Full Code (Latest Code Status on File) Date Activated Date Inactivated Comments 01/16/2022 11:40 PM Care Teams Poured Concrete Wall Technician Relationship Specialty Start Date End Date Cayla Peñaloza NP [address] [place] [id number] PCP - General Family Medicine 01/16/22
== END 2025-04-01 16:23 | disposition home or self-care (01) ==
LOC: HO.RHE 15:31
PROVIDERS: Visit Provider Student in an Organized Health Care Education/Training Program
DX: M06.00 Rheumatoid arthritis without rheumatoid factor, unspecified site (principal); M15.9 Polyosteoarthritis, unspecified; Z51.81 Encounter for therapeutic drug level monitoring; Z79.899 Other long term (current) drug therapy
CPT/HCPCS: 99214; G2211

== ENCOUNTER → 2025-04-01 15:31 | Outpatient (BNVA) | payer MEDICARE, SELFPAY | PROVIDERS: Visit Provider Student in an Organized Health Care Education/Training Program | DX: M06.00 Rheumatoid arthritis without rheumatoid factor, unspecified site (principal); M15.9 Polyosteoarthritis, unspecified; Z51.81 Encounter for therapeutic drug level monitoring; Z79.899 Other long term (current) drug therapy | CPT/HCPCS: 99212 ==

== ENCOUNTER 2025-04-06 14:12 | Outpatient (AMB) | payer MEDICARE, SELFPAY ==
--- NOTE | 2025-04-06 14:24 | A.OFFPC_ITS ---
Vital Signs 04/06/25 14:26 Height 5 ft 2 in Weight 192 lb 8 oz BMI 35.2 BP 130/72 Blood Pressure Location Lt brachial Position Sitting Pulse 78 Pulse Source Pulse Oximeter Temp 97.1 F Temp Source Temporal Artery Scan Pulse Oximetry (%) 96 Oxygen Delivery Method Room Air Intake Visit Reasons: 2 mo f/u Intake Note: Patient is here to follow up on DM, GERD, Chronic pain. Factory Maintenance Technician Required: No Ground Crewman: Not Required per policy Accompanied by: Self / Same As Patient Allergies lisinopril Allergy (Intermediate, Verified 04/06/25 14:44) Swelling clavulanic acid [From Augmentin] Allergy (Mild, Verified 04/06/25 14:44) RASH aripiprazole [From ABILIFY] Adverse Reaction (Intermediate, Verified 04/06/25 14:44) EDEMA duloxetine [From CYMBALTA] Adverse Reaction (Intermediate, Verified 04/06/25 14:44) WT GAIN/EDEMA Medication List - Last Reconciled 04/06/25 by Lilo Davis PA-C albuterol sulfate 90 mcg/actuation 1 puff inhalation Q4H baclofen 10 mg PO TID PRN blood sugar diagnostic (FreeStyle Lite Strips) bupropion HCl XL 300 mg PO DAILY clotrimazole-betamethasone 1-0.05 % 1 appl topical BID cyclobenzaprine 10 mg PO TID docusate sodium 100 mg PO BID furosemide 40 mg (2 x 20 mg) PO DAILY hydroxychloroquine 200 mg PO BID 90 days ibuprofen 600 mg PO Q8H PRN levothyroxine 88 mcg PO DAILY magnesium oxide 400 mg PO ONCE omeprazole 20 mg PO DAILY oxybutynin chloride ER 1 tab PO DAILY oxycodone 10 mg PO TID 3 days oxycodone ER (OxyContin) 15 mg PO BID pregabalin 75 mg PO TID 30 days simvastatin 1 tab PO BEDTIME sulfasalazine 1 g (2 x 500 mg) PO BID 90 days NS trazodone 50 mg PO BEDTIME venlafaxine ER 150 mg PO DAILY Tobacco use date assessed: 04/06/25 Dental Screening Dental Screen Date: 01/28/25 HPI 2 mo f/u HPI Details 64-year-old female with past medical his tory of peripheral vascular disease, chronic bronchitis, rheumatoid arthritis, post-laminectomy syndrome, nicotine dependence last seen 01/2025 coming in for follow up. Patient recently had echocardiogram performed 02/2025 which showed normal function of the heart and mild ascending aorta dilation. At her last visit it was discussed with the patient we would be tapering down her oxycodone and OxyContin. Presenting with pain management and consultation follow-up. She experiences considerable pain in the right foot and ankle with perceived swelling, not confirmed by laboratory inflammatory markers. mild headaches appear linked with stress from the tapering of pain medication. She reports neuropathy, evidenced by burning and tingling in her toes and feet, having worsened recently. Problems concerning oxycodone dosage have led to a completed resolution after consultation with another physician. [facility] Medical History Diabetes History of pulmonary embolism Nicotine dependence, cigarettes, uncomplicated Overactive bladder Thyroid disease Elevated cholesterol Spinal stenosis Anxiety Depression HTN (hypertension) Constipation GERD (gastroesophageal reflux disease) Mass of right thigh Long-term use of hydroxychloroquine Alcohol abuse Chronic bronchitis Seronegative rheumatoid arthritis Pilonidal cyst Neuropathy Carpal tunnel syndrome Rheumatoid arthritis Osteomyelitis Osteoarthritis Pleurisy Surgical History History of thoracic spinal fusion Hx of cervical spine surgery History of elbow surgery H/O colonoscopy History of total right knee replacement (TKR) H/O hernia repair History of surgery on arm History of left knee replacement (~2017) Previous back surgery (~2016) Family History Mother CHF (congestive heart failure) Stroke Uterine cancer Father CHF (congestive heart failure) Sister Diabetes Brother Diabetes Pulmonary embolism Other Mental health disorder Substance use disorder Social History Household Members: None Housing: Apartment Are you a primary director of healthcare systems to a significant other at home: No Unable to assess alcohol history related to: Unable to respond Alcohol intake: current Alcohol intake frequency: a few times a week Alcohol type: hard liquor Patient Tobacco Use Status: Current everyday Tobacco user Tobacco use type: Cigarette Cigarette Packs Per Day: 1.5 Cigarettes Per Day: 30.0 Years Smoked: 40 e-Cigarette/Vaping Use: Never Used Second Hand Smoke Exposure: Yes Substance Use Type: Marijuana service: No Current occupational status: unemployed Cognitive needs: Yes (walker, cane) Hearing needs: No Vision needs: Yes (Reading glasses) Questionnaire Thrive Questionnaire Date Thrive assessed: 01/22/25 I am a: Patient What is your living situation today?: I have a steady place to live Within the past 12 months, did the food you bought not last and you didn't have the money to get more?: Never true Within the past 12 months, did you worry whether your food would run out before you got money to buy more?: Never true Do you have trouble paying for medicines?: No Do you have trouble getting transportation to medical appointments?: No Do you have trouble paying your heating and electricity bill?: No Do you have trouble taking care of your child, family member or friend?: Yes Do you have trouble with day-to-day activities such as bathing, preparing meals, shopping, managing finances, etc.?: Yes Are you currently unemployed and looking for a job?: No Are you interested in more education?: No Please select the resources that you would like help with: None Currently or been in a relationship where the following occur: No concerns reported THRIVE Score: 0 VENANCIO-7 AMB Questionnaire VENANCIO-7 Date VENANCIO - 7 assessed: 01/28/25 Source: Developed by Drs. Giovanni Castelan, Teri Garcia, Erlin Houston and colleagues, with an educational bill from [employer]. Review of Systems Const Denies body aches, Denies chills, Denies fever(s) and Reports headache(s) Eyes Reports no additional complaints ENT Reports headache(s) Card Denies chest pain, Denies lightheadedness and Denies dyspnea Resp Denies dyspnea GI Denies nausea and Denies vomiting Reports no additional complaints Musc Reports no additional complaints and Denies abnormal gait Skin/Breast Reports system reviewed and no additional complaints, except as documented Neuro Denies abnormal gait and Reports headache(s) Psych Reports no additional complaints Physical exam (Primary Care) Vital Signs: Last Vital Signs Temp 97.1 F 04/06/25 14:26 Pulse 78 04/06/25 14:26 BP 130/72 04/06/25 14:26 Pulse Ox 96 04/06/25 14:26 Oxygen Delivery Method Room Air 04/06/25 14:26 BMI result Body Mass Index 35.2 Tobacco/Smoking Status: Tobacco use Status Tobacco use date assessed 04/06/25 04/06/25 14:31 Patient Tobacco Use Status Current everyday Tobacco 04/06/25 14:25 Tobacco use type Cigarette 04/06/25 14:25 e-Cigarette/Vaping Use Never Used 04/06/25 14:25 Thrive Assessment: Date of Thrive Assessment Date Thrive assessed 01/22/25 04/06/25 14:25 Currently or been in a relationship where the following occur: No concerns reported Const General: cooperative, healthy appearing, comfortable and no acute distress Orientation/consciousness: patient oriented x3 HENMT Head: Yes normocephalic Ears: hearing grossly normal bilaterally General nose exam: Normal external nose present Eyes General: appearance normal, both eyes and all related structures Conjunctivae: conjunctivae normal Neck Neck: Yes full ROM and Yes no lymphadenopathy Resp Effort & Inspection: normal respiratory effort Auscultation: clear to auscultation bilaterally, no crackles, no rales, no rhonchi and no wheezes Cardio Rate: regular rate Rhythm: regular rhythm Skin General skin exam: no rashes or lesions noted Neuro General: patient oriented x3 Gait exam (Neuro): Normal gait present Extrem General: Yes normal to inspection, Yes full ROM and No edema Psych Affect: normal affect Attitude: cooperative Insight: Good insight present (Psych) Judgement: Good judgement present (Psych) Coding Level of Care Code Est Pt Level 3 (17368) Diagnoses Chronic pain syndrome G89.4 Seronegative rheumatoid arthritis M06.00 Assessment & Plan Assessment & Plan (1) Chronic pain syndrome: Code(s): G89.4 - Chronic pain syndrome Category: Medical Plan: During today's visit, we addressed the patient's management for various chronic conditions including rheumatoid arthritis and neuropathy. We will continue collaborating with her gum puller regarding joint care and have her proceed with potential x-ray evaluations. She has been doing well with the tapering and denies any side effects except for mild headaches. Continue to decrease OxyContin and oxycodone by 5 pills per month. Plan for urine drug screen in the upcoming visits. Coordination for AUTOMOTIVE TECHNICIAN INSTRUCTOR services will offer her necessary daily living support. We initiated contact with [facility]'s pain management team to facilitate an extensive pain management evaluation. (2) Seronegative rheumatoid arthritis: Comment: seroneg dx 2019. MTX (wasn't done due to alcohol abuse) HCQ 2019 SSZ added 07/2023 effective Code(s): M06.00 - Rheumatoid arthritis without rheumatoid factor, unspecified site Category: Medical Plan: Continue to follow with Rheumatology at this time. X-rays were ordered but have not been completed as of yet. Continue on current medication. Plan This note was constructed using voice recognition software. While every effort has been made to ensure accuracy and mat sewer, still areas may have been included sometimes these areas may affect the content or meeting of the given symptoms. Total time spent caring for the patient today was 20 minutes. This includes time spent before the visit reviewing the chart, time spent during the visit, and time spent after the visit and documentation. Patient was informed and verbally consented to the use of an ambient scribe for clinic note documentation during this visit.
[2025-04-06 14:26] VITALS: BP 130/72; PULSE 78; TEMP 36.2; O2SAT 96; BMI 35.2
--- OUTSIDE RECORDS SUMMARY | 2025-04-06 17:04 | XMS_ITS | Clinical Summary ---
Author Organization [facility] Address [address] [place] [address] Care Team Providers Care Tetryl Wringer Operator Name Role Phone Cayla Peñaloza NP Primary Care Provider [phone] Allergies Active Allergy Reactions Criticality Noted Date [...] metroNIDAZOLE (FLAGYL) 500 MG tabletIndicatio ns:Abscess of pin game machine inspector space of mouth Take 1 tablet (500 mg total) by mouth 2 (two) times a day. Take with meals or food to reduce stomach upset. 44 tablet 2 Active cephalexin (KEFLEX) 500 MG capsuleIndicati ons:Abscess of pin game machine inspector space of mouth Take 2 capsules (1,000 mg total) by mouth 2 (two) times a day. 88 capsule 2 Active baclofen (LIORESAL) 5 MG tabletIndicatio ns:Abscess of pin game machine inspector space of mouth Take 3 tablets (15 [...] Problem Noted Date Diagnosed Date Abscess of pin game machine inspector space of mouth 01/16/2022 Overview (01/16/2022): Added automatically from request for surgery [id number] Facial abscess 01/16/2022 Family History Medical History [...] age to complete this topic Insurance [facility] MEDICARE Advance Directives * Full Code (Latest Code Status on File) Date Activated Date Inactivated Comments 01/16/2022 11:40 PM Care Teams Tetryl Wringer Operator Relationship Specialty Start Date End Date Cayla Peñaloza NP [address] [place] [phone] PCP - General Family Medicine 01/16/22
== END 2025-04-06 15:01 | disposition home or self-care (01) ==
LOC: HO.HMCH 14:12
PROVIDERS: PCP Registered Nurse
DX: G89.4 Chronic pain syndrome (principal); M06.00 Rheumatoid arthritis without rheumatoid factor, unspecified site

== ENCOUNTER → 2025-04-06 14:12 | Outpatient (BNVA) | payer MEDICARE, SELFPAY | PROVIDERS: PCP Registered Nurse | DX: G89.4 Chronic pain syndrome (principal); M06.00 Rheumatoid arthritis without rheumatoid factor, unspecified site; Z79.891 Long term (current) use of opiate analgesic | CPT/HCPCS: 99212 ==

== ENCOUNTER 2025-05-04 12:58 | Outpatient (AMB) | payer MEDICARE, SELFPAY ==
--- OUTSIDE RECORDS SUMMARY | 2024-01-10 06:40 | XMS_ITS ---
Author Organization [facility] Address [address] [place] [phone] Care Team Providers Care Traffic Superintendent Name Role Phone Anabela CANTRELL, Cayla Primary Care Provider Getachew De Dios Jr REASON FOR VISIT screening,hx polyps Encounters Encounter Location Date Provider Diagnosis [facility] [place] Out[place] [address] [place] [phone] 01/10/2024 Getachew Toscano Jr Encounter for screening colonoscopy Z12.11 and Personal history of colonic polyps Z86.010 Assessments Encounter Date Diagnosis (ICD Code) Assessment Notes Treatment Notes Treatment Clinical Notes Section Notes 01/10/2024 Encounter for screening colonoscopy (ICD-10 - Z12.11) 01/10/2024 Personal history of colonic polyps (ICD-10 - Z86.010) Plan Of Treatment No Information Progress Notes * BEAR KRAUSE MDOB: (64 yo F)Acc No.[id number]:01/10/2024 COLON WITH MAC Patient: BEAR HAYWARD Provider: Suri Toscano MD :1960 A ge:63 Y S ex:Female Date:01/10/2024 Address:[address] [place], [place] [phone] Pcp:Cayla Peñaloza NP Subjective: * Chief Complaints: [...] 01/10/2024 Generated for Rehan sullivan/Wali/Kennysmitting on: 0 05/04/2025 01:42 PM EDT
--- OUTSIDE RECORDS SUMMARY | 2024-02-13 11:00 | XMS_ITS | Continuity of Care Document ---
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 [address] [address], [place], [place], [id number], [place]. tel:[phone] Referring Provider: Cayla Peñaloza NP, [address] [facility] [place], [address]. tel:[phone] Jordana [facility], [address] [place] [address] [address]Javi [place], [id number], [place] tel:[phone] CVR - [place] Encounter for follow-up examination after completed treatment for conditions other than malignant neChronic venous hypertension (idiopathic) with other complication s of bilateral lower extremity 4 Flavio RIBEIRO RVT, NO Davila. [address] [address], [place], [place], [id number], [place]. tel:[phone] Referring Provider: Cayla Peñaloza NP, [address] [facility] [place], [address]. tel:[phone] [facility], [address] [place] [address] [address]Javi [place], [id number], [place] tel:[phone] CVR - [place] - [place] Varicose veins of left lower extremity with other complication s 4 Wyatt Briceno. [address] [facility] [address] [facility] [address], [place], [place], [id number], [place]. tel:[phone] Referring Provider: Cayla Peñaloza NP, [address] [facility] [place], [address]. tel:[phone] [facility], [address] [place] [address] [address]Javi [place], [id number], [place] tel:[phone] CVR - [place] Encounter for follow-up examination after completed treatment for conditions other than malignant nePain in right leg 0 4 Flavio RIBEIRO RVT, NO Davila. [address] [place] [address], Suite [facility], [place], [id number], [place]. tel:[phone] Referring Provider: Cayla Peñaloza NP, [address] [facility] [place], [address]. tel:[phone] [facility], [address] [place] [address] [address]Javi [place], [id number], [place] tel:[phone] CVR - [place] Chronic venous hypertension (idiopathic) with inflammation of right lower extremity Nov- 4 Flavio RIBEIRO RVT, NO Davila. [address] [place] [address], Suite [facility], [place], [id number], [place]. tel:[phone] Referring Provider: Cayla Peñaloza NP, [address] [place] [address] [place] [address] [place], [address]. tel:[phone] [facility], [address] [place] [address] Dr [address]Javi [place], [id number], [place] tel:[phone] CVR - [place] Encounter for follow-up examination after completed treatment for conditions other than malignant neVaricose veins of right lower extremity with pain Nov- 4 Flavio RIBERIO RVT, NO Davila. [address] [place] [address], [address] [address], [place], [id number], [place]. tel:[phone] Referring Provider: Cayla Peñaloza NP, [address] [facility] [place], [address]. tel:[phone] [facility], [address] [place] [address] [address] 1000Javi [place], [id number], [place] tel:[phone] CVR - [facility] Varicose veins of right lower extremity with other complication s 4 Flavio RIBEIRO RVT, RPVI Robert. [address] [place] [address], [address], [place], [id number], [place]. tel:[phone] Referring Provider: Cayla Peñaloza NP, [address] [facility] [place], [address]. tel:[phone] Offic/outpt E&m Estab 5 Min Trial - Telemedicine [facility], [address] [place] [address] Dr [address] 1000Javi [place], [id number], [place] tel:[phone] [facility] Localized edemaCramp and spasmRestles s legs syndromeVeno us insufficienc y (chronic) (peripheral) Disorder of pigmentation , unspecified 3 Wyatt Briceno. [address] [facility] [address], [facility] [place], [id number], [place]. tel:[phone] Referring Provider: Cayla Peñaloza NP, [address] [facility] [place], [address]. tel:[phone] Offic Cons New/estab Mod-hi 60 [facility], [address] [place] [address] [address]Javi [place], [id number], [place] tel:[phone] CV - [facility] Varicose veins of bilateral lower extremities with other complication sVaricose veins of right lower extremity with inflammation Varicose veins of left lower extremity with inflammation Localized edemaRestles s legs syndromeLymp hedema, not elsewhere classifiedDi sorder of pigmentation , unspecifiedH ereditary lymphedemaCr amp and spasm Jul- 3 Pranay RIBEIRO FACS RVT RPGEMA Barahona. [address] [facility] [address], [place], [address], [place]. tel:[phone] Referring Provider: Cayla Peñaloza NP, [address] [facility] [place], [address]. tel:[phone] [place] [facility], [address] [place] [address] [address] 1000Javi [place], [id number], [place] tel:[phone] [facility] Chronic venous hypertension (idiopathic) with other complication s of bilateral lower extremity 3 Pranay RIBEIRO FACS RVT LEIDAVI Antonio Barahona. [address] [facility], [address], [place], [address], [place]. tel:[phone] Referring Provider: Cayla Peñaloza CLOUD SECURITY ARCHITECT, [address] [place] [address] Dr [address] [employer]i Farmworker [facility] In , [place], [address]. tel:[phone] Family History Family Member Type Diagnosis Age At Onset No Information Payers Payer name Insurance type Covered alliance party ID Thea alejandra(s) [employer] [place] [employer] CI [id number] Social History Type Description Quantity Date Captured [...]
--- OUTSIDE RECORDS SUMMARY | 2024-06-08 07:15 | XMS_ITS ---
Author Organization [facility] Address [address] [place] [address] Care Team Providers Care Binding Folder Machine Name Role Phone Lilo Davis Primary Care Provider UnavailAria Borrego [phone] Encounters Encounter Location Date Provider Diagnosis [address] [address] 06/08/2024 Aria Dodd Plan Of Treatment Next Appt Details Provider Name:Aria A Yousif , 07/26/2025 01:00:00 PM, [address] [place] [address], [phone], Progress Notes * Evelyne CLAUDIO MDOB: (64 yo F)Acc No.[id number]:06/08/2024 Progress Note Patient: Evelyne HAYWARD Provider: Leanne Dodd DPM :1960 A ge:63 Y S ex:Female Date:06/08/2024 Address:[address] [place], [place] [address]Grace mcintoshHASSELL, [id number] Pcp:Lilo Davis Subjective: * Chief Complaints: * [...] 06/08/2024 Generated for Rehan sullivan/Wali/Elba on: 0 05/04/2025 01:41 PM EDT
[2025-05-04 13:04] VITALS: BP 150/96; PULSE 90; RESP 18; TEMP 36.1; O2SAT 94; BMI 34.8
--- NOTE | 2025-05-04 13:04 | MHC.PC.OV ---
Vital Signs 05/04/25 13:04 05/04/25 13:51 Height 5 ft 2 in Weight 190 lb 6 oz BMI 34.8 BP 150/96 H 146/86 H Blood Pressure Location Lt brachial Lt brachial Position Sitting Sitting Respiration 18 Pulse 90 Pulse Source Pulse Oximeter Temp 97.0 F Temp Source Temporal Artery Scan Pulse Oximetry (%) 94 Oxygen Delivery Method Room Air Intake Visit Reasons: f/u medication Allergies lisinopril Allergy (Intermediate, Verified 05/04/25 13:11) Swelling clavulanic acid (From Augmentin) Allergy (Mild, Verified 05/04/25 13:11) RASH aripiprazole (From ABILIFY) Adverse Reaction (Intermediate, Verified 05/04/25 13:11) EDEMA duloxetine (From CYMBALTA) Adverse Reaction (Intermediate, Verified 05/04/25 13:11) WT GAIN/EDEMA Medication List - Last Reconciled 05/04/25 by Lilo Davis PA-C albuterol sulfate 90 mcg/actuation 1 puff inhalation Q4H baclofen 10 mg PO TID PRN blood sugar diagnostic (FreeStyle Lite Strips) bupropion HCl XL 300 mg PO DAILY clotrimazole-betamethasone 1-0.05 % 1 appl topical BID cyclobenzaprine 10 mg PO TID docusate sodium 100 mg PO BID furosemide 40 mg (2 x 20 mg) PO DAILY hydroxychloroquine 200 mg PO BID 90 days ibuprofen 600 mg PO Q8H PRN levothyroxine 88 mcg PO DAILY magnesium oxide 400 mg PO ONCE omeprazole 20 mg PO DAILY oxybutynin chloride ER 1 tab PO DAILY oxycodone 10 mg PO TID 28 days oxycodone ER (OxyContin) 15 mg PO BID PRN pregabalin 75 mg PO TID 30 days simvastatin 20 mg PO BEDTIME sulfasalazine 1 g (2 x 500 mg) PO BID 90 days NS trazodone 50 mg PO BEDTIME venlafaxine ER 150 mg PO DAILY Tobacco use date assessed: 04/06/25 Dental Screening Dental Screen Date: 01/28/25 Did you have a dental visit in the last 12 months?: No Did you have a dental problem in the last 6 months where you did not have access to dental care?: No Was dental information given to patient?: Patient declined HPI f/u medication HPI Details 64-year-old female with past medical history of peripheral vascular disease, chronic bronchitis, rheumatoid arthritis, post-laminectomy syndrome, nicotine dependence last seen 03/2025 coming in for follow up. Presenting with concerns of peripheral edema and diabetic neuropathy management. Peripheral edema has been worsening, particularly in the right leg, with associated pain and discoloration. The patient reports that the swelling increases with dietary sodium intake and decreases with leg elevation. The patient has a history of knee replacement surgery, which she associates with the onset of her current edema issues. She finds the right leg is always more swollen than the left. Diabetic neuropathy is managed with pregabalin, which the patient reports helps with foot pain, particularly at night. The patient is on a regimen of 75 mg three times a day, with a recent adjustment to increase the nighttime dose to 150 mg. A lipoma on the thigh has been noted to be growing, prompting a decision to perform an ultrasound for further evaluation. [facility] Medical History Mass of right thigh Diabetes History of pulmonary embolism Nicotine dependence, cigarettes, uncomplicated Overactive bladder Thyroid disease Elevated cholesterol Spinal stenosis Anxiety Depression HTN (hypertension) Constipation GERD (gastroesophageal reflux disease) Long-term use of hydroxychloroquine Alcohol abuse Chronic bronchitis Seronegative rheumatoid arthritis Pilonidal cyst Neuropathy Carpal tunnel syndrome Rheumatoid arthritis Osteomyelitis Osteoarthritis Pleurisy Surgical History History of thoracic spinal fusion Hx of cervical spine surgery History of elbow surgery H/O colonoscopy History of total right knee replacement (TKR) H/O hernia repair History of surgery on arm History of left knee replacement (~2017) Previous back surgery (~2016) Family History Mother CHF (congestive heart failure) Stroke Uterine cancer Father CHF (congestive heart failure) Sister Diabetes Brother Diabetes Pulmonary embolism Other Mental health disorder Substance use disorder Social History Household Members: None Housing: Apartment Are you a primary long term care administrator to a significant other at home: No Unable to assess alcohol history related to: Unable to respond Alcohol intake: current Alcohol intake frequency: a few times a week Alcohol type: hard liquor Patient Tobacco Use Status: Current everyday Tobacco user Tobacco use type: Cigarette Cigarette Packs Per Day: 1.5 Cigarettes Per Day: 30.0 Years Smoked: 40 e-Cigarette/Vaping Use: Never Used Second Hand Smoke Exposure: Yes Substance Use Type: Marijuana service: No Current occupational status: unemployed Cognitive needs: Yes (walker, cane) Hearing needs: No Vision needs: Yes (Reading glasses) Questionnaire PHQ-9 Over the last 2 weeks, how often have you been bothered by any of the following problems? 1. Little interest or pleasure in doing things: several days 2. Feeling down, depressed, or hopeless: several days 3. Trouble falling or staying asleep, or sleeping too much: several days 4. Feeling tired or having little energy: several days 5. Poor appetite or overeating: several days 6. Feeling bad about yourself - or that you are a failure or have let yourself or your family down: several days 7. Trouble concentrating on things, such as reading the newspaper or watching television: several days 8. Moving or speaking so slowly that other people could have noticed. Or the opposite - being so fidgety or restless that you have been moving around a lot more than usual: more than half the days 9. Thoughts that you would be better off or of hurting yourself in some way: not at all Total score: 9 Depression Screening Interpretation: Positive Depression Screening Follow-up: Existing condition and In treatment Depression Screening Done: Yes Source: Developed by Drs. Giovanni Castelan, Teri Garcia, Erlin Houston and colleagues, with an educational bill from [employer]. Thrive Questionnaire Date Thrive assessed: 01/22/25 I am a: Patient What is your living situation today?: I have a steady place to live Within the past 12 months, did the food you bought not last and you didn't have the money to get more?: Never true Within the past 12 months, did you worry whether your food would run out before you got money to buy more?: Never true Do you have trouble paying for medicines?: No Do you have trouble getting transportation to medical appointments?: No Do you have trouble paying your heating and electricity bill?: No Do you have trouble taking care of your child, family member or friend?: Yes Do you have trouble with day-to-day activities such as bathing, preparing meals, shopping, managing finances, etc.?: Yes Are you currently unemployed and looking for a job?: No Are you interested in more education?: No Please select the resources that you would like help with: None Currently or been in a relationship where the following occur: No concerns reported THRIVE Score: 0 AUDIT C Alcohol Use Questionnaire (AUDIT-C) 1. How often do you have a drink containing alcohol?: Never 3. How often do you have six or more drinks on one occasion?: Never Total Score: 0 VENANCIO-7 AMB Questionnaire VENANCIO-7 Date VENANCIO - 7 assessed: 01/28/25 Feeling nervous, anxious, or on edge: 0 = Not at all Not being able to stop or control worryin = Not at all Worrying too much about different things: 0 = Not at all Trouble relaxin = Not at all Being so restless that it is hard to sit still: 0 = Not at all Becoming easily annoyed or irritable: 0 = Not at all Feeling afraid as if something awful might happen: 0 = Not at all Total VENANCIO-7 score (0-4 normal; 5-9 mild; 10-14 moderate; 15-21 severe): 0 Source: Developed by Drs. Giovanni Castelan, Teri Garcia, Erlin Houston and colleagues, with an educational bill from [employer]. Review of Systems Const Denies body aches, Denies chills, Denies fever(s), Denies headache(s) and Denies poor appetite Eyes Reports no additional complaints ENT Denies dysphagia, Denies dizziness, Denies headache(s) and Denies odynophagia Card Denies chest pain, Denies syncope, Denies edema, Denies irregular heart rhythm, Denies lightheadedness and Denies dyspnea Resp Denies cough and Denies dyspnea GI Denies abdominal pain, Denies constipation, Denies dysphagia, Denies diarrhea, Denies nausea, Denies odynophagia and Denies vomiting Reports no additional complaints Musc Reports no additional complaints and Denies abnormal gait Skin/Breast Reports system reviewed and no additional complaints, except as documented Neuro Denies abnormal gait, Denies dizziness, Denies syncope and Denies headache(s) Psych Reports no additional complaints Physical exam (Primary Care) Vital Signs: Last Vital Signs Temp 97.0 F 05/04/25 13:04 Pulse 90 05/04/25 13:04 Resp 18 05/04/25 13:04 BP 146/86 H 05/04/25 13:51 Pulse Ox 94 05/04/25 13:04 Oxygen Delivery Method Room Air 05/04/25 13:04 BMI result Body Mass Index 34.8 Tobacco/Smoking Status: Tobacco use Status Tobacco use date assessed 04/06/25 05/04/25 13:09 Patient Tobacco Use Status Current everyday Tobacco 05/04/25 13:09 Tobacco use type Cigarette 05/04/25 13:09 e-Cigarette/Vaping Use Never Used 05/04/25 13:09 PHQ-9: PHQ-9 Score PHQ-9: Total score 9 05/04/25 14:47 Depression Screening Interpretation: Positive Depression Screening Follow-up: Existing condition and In treatment Thrive Assessment: Date of Thrive Assessment Date Thrive assessed 01/22/25 05/04/25 13:09 Currently or been in a relationship where the following occur: No concerns reported Const General: cooperative, healthy appearing, comfortable and no acute distress Orientation/consciousness: patient oriented x3 HENMT Head: Yes normocephalic Ears: hearing grossly normal bilaterally General nose exam: Normal external nose present Eyes General: appearance normal, both eyes and all related structures Conjunctivae: conjunctivae normal Neck Neck: Yes full ROM and Yes no lymphadenopathy Resp Effort & Inspection: normal respiratory effort Auscultation: clear to auscultation bilaterally, no crackles, no rales, no rhonchi and no wheezes Cardio Rate: regular rate Rhythm: regular rhythm Skin General skin exam: no rashes or lesions noted Neuro General: patient oriented x3 Gait exam (Neuro): Normal gait present Extrem Other: 1+ pitting edema of bilateral lower extremities. Swelling is worse on the right side with overlying skin thickening and discoloration. No erythema, warmth, pain. General: Yes full ROM and Yes edema Upper/lower leg/hip images:  1. Soft, nontender, freely mobile mass with smooth borders Psych Affect: normal affect Attitude: cooperative Insight: Good insight present (Psych) Judgement: Good judgement present (Psych) Results AMB Hemoglobin A1c AMB Hemoglobin A1c 5.8 % Last Edit by Candice Randle CMA on 05/04/25 13:16 Results Reviewed Results Reviewed: Laboratory Last Values Hgb A1c (Clinic) 5.8 % (4.0-6.0) 05/04/25 13:10 Coding Level of Care Code Est Pt Level 4 (98167) Diagnoses Chronic pain syndrome G89.4 Diabetes E11.9 Seronegative rheumatoid arthritis M06.00 Mass of right thigh R22.41 Leg swelling M79.89 Peripheral neuropathy G62.9 Assessment & Plan Assessment & Plan (1) Chronic pain syndrome: Code(s): G89.4 - Chronic pain syndrome Category: Medical Plan: She has been doing well with the tapering and denies any side effects except for mild headaches and occasional break through pain primarily at night. Continue to decrease OxyContin and oxycodone by 5 pills per month. Plan for urine drug screen in the upcoming visits. We will increase her Pregabalin at bedtime to better manage her nighttime pain. Caution with using this medication in conjunction with other pain killers as they may cause excessive drowsiness. Coordination for [facility] services will offer her necessary daily living support. We initiated contact with [facility]'s pain management team to facilitate an extensive pain management evaluation. (2) Diabetes: Code(s): E11.9 - Type 2 diabetes mellitus without complications Category: Medical Plan: Decrease the amount of carbohydrates such as pasta, bread, rice, and potatoes and limit the amount of sweets. Although fruits are generally healthy they should be eaten in moderation as they are still high in sugar. Hemoglobin A1c goal of less than 7%. Well managed without medication. (3) Seronegative rheumatoid arthritis: Comment: seroneg dx 2019. MTX (wasn't done due to alcohol abuse) HCQ 2019 SSZ added 07/2023 effective Code(s): M06.00 - Rheumatoid arthritis without rheumatoid factor, unspecified site Category: Medical Plan: Continue to follow with Rheumatology. (4) Mass of right thigh: Code(s): R22.41 - Localized swelling, mass and lump, right lower limb Category: Medical Plan: She has a mass of the right thigh that has previously been evaluated in 2022 with an ultrasound. No masses identified at that time however she does have a palpable, nontender, freely mobile mass on the medial aspect of the right thigh. Plan for ultrasound for further evaluation (5) Leg swelling: Code(s): M79.89 - Other specified soft tissue disorders Category: Medical Plan: Patient having bilateral leg swelling worse on the right. Bilateral legs and calves are nontender, nonerythematous and not warm. I did discuss with the patient my concerns of the worsening right leg swelling and I did recommend a stat ultrasound to rule out DVT. There is mild suspicion for DVT due to the history of pulmonary embolism in the worsening leg swelling on the right side. Patient is declining states this is chronic for her and does not want to have the ultrasound done. I did discuss with her the risks of not performing an ultrasound and patient is aware. She agrees to monitor her symptoms and reach out to the office should there be any change at which point stat ultrasound will be ordered. (6) Peripheral neuropathy: Code(s): G62.9 - Polyneuropathy, unspecified Category: Medical Plan: Patient has a history of neuropathy that is managed with pregabalin 75 mg t.i.d.. She states her pain is not well managed primarily at nighttime and her neuropathy is often worse in the end of the day. Plan to increase pregabalin dose to 75 mg a.m. and noon and 150 mg at bedtime. Plan The patient will undergo an ultrasound to evaluate the growing lipoma on the thigh, as it has been noted to increase in size. The management of peripheral edema will include monitoring dietary sodium intake and elevating the legs to reduce swelling. The patient is advised to report any changes in leg color or pain, as these could indicate complications such as a blood clot. The pregabalin dosage will be adjusted to 75 mg twice daily with an additional 150 mg at night to better manage diabetic neuropathy symptoms. A referral to pain management has been made to address chronic pain issues and optimize medication management. The patient's blood pressure will be monitored closely, and lifestyle modifications, including reducing sodium intake, will be emphasized to manage hypertension. Follow-up appointments will be scheduled to reassess the patient's condition and adjust treatment plans as necessary. This note was constructed using voice recognition software. While every effort has been made to ensure accuracy and or first assist registered nurse, still areas may have been included sometimes these areas may affect the content or meeting of the given symptoms. Total time spent caring for the patient today was 20 minutes. This includes time spent before the visit reviewing the chart, time spent during the visit, and time spent after the visit and documentation. Patient was informed and verbally consented to the use of an ambient scribe for clinic note documentation during this visit. Orders: Orders US Extremity Nonvas Limited RT 05/04/25 R22.41 - Localized swelling, mass and lump, right lower limb AMB Hemoglobin A1c 05/04/25 Z13.9 - Encounter for screening, unspecified Medications: New [Diabetic shoe with inserts] As directed 1 ea 0RF E11.9 - Type 2 diabetes mellitus without complications magnesium oxide 400 mg PO ONCE 90 tabs 0RF venlafaxine ER 150 mg PO DAILY 90 caps 0RF pregabalin 150 mg PO BEDTIME 30 caps 0RF Changed From oxybutynin chloride ER 1 tab PO DAILY To oxybutynin chloride ER 10 mg PO DAILY 90 tabs 0RF From baclofen 10 mg PO TID PRN Muscle Spasm To baclofen 10 mg PO TID PRN 90 tabs 0RF Muscle Spasm 30 days From pregabalin 75 mg PO TID 30 days 90 caps 0RF To pregabalin 75 mg PO BID 60 caps 0RF 30 days
--- OUTSIDE RECORDS SUMMARY | 2025-05-04 13:42 | XMS_ITS | Clinical Summary ---
Author Organization [facility] Address [address] [place] [address] Care Team Providers Care Post Anesthesia Care Unit Nurse Name Role Phone Cayla Peñaloza NP Primary Care Provider [phone] Allergies Active Allergy Reactions Criticality Noted Date [...] metroNIDAZOLE (FLAGYL) 500 MG tabletIndicatio ns:Abscess of transactional attorney space of mouth Take 1 tablet (500 mg total) by mouth 2 (two) times a day. Take with meals or food to reduce stomach upset. 44 tablet 2 Active cephalexin (KEFLEX) 500 MG capsuleIndicati ons:Abscess of transactional attorney space of mouth Take 2 capsules (1,000 mg total) by mouth 2 (two) times a day. 88 capsule 2 Active baclofen (LIORESAL) 5 MG tabletIndicatio ns:Abscess of transactional attorney space of mouth Take 3 tablets (15 [...] Problem Noted Date Diagnosed Date Abscess of transactional attorney space of mouth 01/16/2022 Overview (01/16/2022): Added automatically from request for surgery [id number] Facial abscess 01/16/2022 Family History Medical History [...] 70 01/27/2022 5:00 AM EDT Temperature 36.1 C (97 F) 01/27/2022 5:00 AM EDT Respiratory Rate 18 [...] patient's age to complete this topic Insurance [facility] Advance Directives * Full Code (Latest Code Status on File) Date Activated Date Inactivated Comments 01/16/2022 11:40 PM Care Teams Post Anesthesia Care Unit Nurse Relationship Specialty Start Date End Date Cayla Peñaloza NP [address] [place] [id number] PCP - General Family Medicine 01/16/22
--- OUTSIDE RECORDS SUMMARY | 2025-05-04 13:42 | XMS_ITS ---
Author Name [facility] Encounters Encounter Type Encounter Reason Primary Diagnosis Location Date Inpatient Cellulitis and abscess of mouth [facility] 01/16/2022 Care Team Organization Name Specialty Phone Email Start Date End Da patricia [facility] 01/16/2022 06/15/2024 [facility] Primary [facility] 01/16/2022 01/16/2022
--- OUTSIDE RECORDS SUMMARY | 2025-05-04 13:42 | XMS_ITS | Clinical Summary ---
Author Organization 175 [facility] Address [address] [place] [address] Phone Care Team Providers Care Deli Manager Name Role Phone Lilo Davis Primary Care Provider [phone] Allergies Active Allergy Reactions Criticality Noted Date [...] Active Problems Problem Noted Date Diagnosed Date Cubital tunnel syndrome on left 04/16/2025 Degenerative arthritis of me tacarpophalangeal joint of [...] getting referral to cardiology Dr. Taylor at [facility]. She has history of lymphedema, her right [...] answered. 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 ([facility] V24, [facility] V28) 04/20/2020 Overview (08/31/2024): Last Assessment & Plan: Managed by rheumatology, taking hydroxychloroquine and sulfasalazine Pyogenic inflammation of bone ([facility] V24, [facility] V28) 12/02/2019 Lichen sclerosus 07/29/2018 Slow transit [...] 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 ([facility] V24, [facility] V28) 10/17/2017 Overview (08/31/2024): Last Assessment & Plan: Labs as ordered for treatment evaluation, she notes very sedentary lifestyle Status post total left knee replacement 10/17/20 17 Depression, major, recurrent , in partial remission ([facility] V24) 06/02/2015 Major depressive disorder, r ecurrent episode, in partial remission ([facility] V24) 06/18/2013 Opioid type dependence ([facility] V24, [facility] V28 ) 05/21/2013 Overview (08/31/2024): IMO update Alcohol abuse 04/03/2012 Back pain 04/03/2012 DJD (degenerative joint disease) of knee 012 Hypercholesteremia 04/03/2012 Hypertension 04/03/2012 Obesity 04/03/2012 Tobacco dependence 04/03/2012 Encounters Date Type Department Care Team Description 04/16/2025 11:45 AM EDT Office Visit Orthopedic Surgery [facility] [address] [phone] Yu Hernández MD Cubital tunnel syndrome on left (Primary Dx) 03/05/2025 11:15 AM EDT Office Visit Orthopedic Surgery [facility] 175 [facility] [address] [place] [phone] Laurel Haynes PA Left elbow pain (Primary Dx); Cubital tunnel syndrome on left 02/16/2025 3:42 PM EDT - 02/16/2025 11:59 PM EDT Hospital Encounter [facility] [address] [place] [phone] Left elbow pain Discharge Disposition: Home or Self Care from Last 3 Months Immunizations Name Administration [...] 2, co ntrolled, with complications (CMS/HCC V24, [facility] V28) DX:Diabetes mellitus type 2, controlled, with complications ([facility]) Esophageal reflux DX:Esophageal reflux Anxiety state DX:Anxiety state Depressive disorder DX:Depressiv e disorder Hyperlipidemia DX:Hyperlipidemi a Essential hypertension DX:Essent ial hypertension Rheumatoid arthritis (CMS/ C V24, CMS/HCC V28) DX:Rheumatoid arthritis (HCC [...] Date Smoking Tobacco: Every Day Cigarettes 1.5 44.5 Started: 1980 Passive Smoke Exposure: Past Smokeless [...] 77 10/08/2024 11:34 AM EST Temperature 36.4 C (97.5 F) 10/08/2024 11:34 AM EST Respiratory Rate 18 10/08/2024 11:34 AM EST Oxygen Saturation 98% 10/08/2024 11:34 AM EST Inhaled Oxygen Concentration - - Weight 83.9 kg (185 lb) 04/16/2025 11:57 AM EDT Height 157.5 cm (5' 2 ) 04/16/2025 11:57 AM EDT Body Mass Index 33.84 04/16/2025 11:57 AM EDT Plan of Treatment Scheduled Procedures Name Priority Associated Diagnoses Date/Ti me DECOMPRESSION ULNAR NERVE Cubital tunnel syndrome on left Health Maintenance Due Date Last Done Comments [...] years 1-dose series) 2022 COVID-19 Vaccine ( - season) 2024 03/14/2022, 08/23/2021, 02/03/2021, Additional history exists Diabetes: Annual Urine Albumin-Creatinine Ratio (uACR) 08/10/2024 11/29/2022, 07/21/2019, 07/29/2018 Diabetes: Blood Sugar Control Test (HGBA1C) 08/10/2024 12/04/2023 Diabetes: Annual GFR (Glomerular Filtration Rate) 12/04/2024 12/04/2023, 12/04/2023, 02/18/2023, Additional history exists Hypertension/CHF/CAD Annual BMP Blood Test 12/04/2024 12/04/2023, 12/04/2023, 02/18/2023, Additional history exists Influenza Vaccine (#1) 2025 , 10/28/2023, 08/02/2023, Additional history exists Depression Screening 09/22/2025 09/22/2024 Cholesterol Screening (Lipid Panel) 12/04/2028 12/04/2023 DTaP,Tdap,and Td Vaccines (2 - Td or Tdap) 01/11/2034 01/12/2024, 03/17/2016, 01/24/2006 Pneumococcal Vaccine: 50+ Years Completed 07/19/2017, 05/12/2015 Pneumococcal Vaccine: Pediatrics (0 to 5 Years) and At-Risk Patients (6 to 49 Years) Completed 07/19/2017, 05/12/2015 HIB Vaccines Aged Out No longer eligi [...] Dodson RN Medical Devices Implanted Type Area Search Engine Optimization Analyst Device Identifier Shelf Expiration Date Model [...] - 02/16/2025 Please see the attached report Result [facility] Laurel [place]AD[place] NEUROLOGY ORDERABLES Final Re sult * Annual BMP Blood Test (12/04/2023) Pathologist [facility] Annual BMP Blood Test Abstarcted Result [facility] Provider [place] [employer] Final Result * Hemoglobin A1c (12/04/2023) [facility] Hemoglobin A1C 0.0 % Comment:No Interpretation, A bstracted Blood Venous blood specimen / Unknown Result [facility] Provider LAB BLOOD ORDERABLES Madelaine l Result * Lipid panel (12/04/2023) [facility] LDL/HDL Ratio 0 Comment:No Interpretation, A bstracted Triglycerides 0 mg/dL Comment:No Interpretation, A bstracted Cholesterol 0 mg/dL Comment:No Interpretation, A bstracted HDL 0 mg/dL Comment:No Interpretation, A bstracted LDL Cholesterol 0 mg/dL Comment:No Interpretation, A bstracted Blood Venous blood specimen / Unknown Result [facility] Provider LAB BLOOD ORDERABLES Madelaine l Result from Last 3 Months or Most Recently Relevant to Health Maintenance Additional Health Concerns Active Problems Noted Date Diagnosed Date Impaired Tissue 09/22/2024 Education needed on impact of smoking on wound 1 11/22/2023 Education needed related to ulceration/compromised skin integrity. 09/22/2024 [place] [id number] [employer] MED[employer]VANT[employer] Care Teams Deli Manager Relationship Specialty Start Date End Date Lilo Davis PA [address] [facility], [address] [place] [address] PCP - General 02/01/25
--- OUTSIDE RECORDS SUMMARY | 2025-05-04 13:42 | XMS_ITS | Data Portability ---
Author Organization [place] - [facility] Address [address] [place] [phone] Care Team Providers Care Title Lawyer Name Role Phone LAZARO BONDS Primary Care Provider LAZARO BONDS Referring Provider Assessment Encounter Date Assessment Date Assessment LastModified by Organization Details LastModified Time 04/15/2025 04/15/2025 Patient with bilateral tinnitus that is occasionally pulsatile but in both ears. No evidence of bruits. Audiometric testing shows mild high-frequency hearing loss bilaterally. She does have some TMJ tenderness and poor dentition also has nasal congestion and overuse of [id number] decongestant preparations. I have recommended saline irrigations, avoidance of the oxymetazoline decongestant preparations. I have also given her some topical eardrops for itching. She will contact me in a few weeks. Consider MRI for tinnitus workup if she has persistent symptoms [email or web address] Not available 04/15/2025 15:57:46 Plan of Treatment Reminders Order Date Submit Date Provider Last Modified By Organization Details Last Modified Time Details Appointments None recorded. Lab None recorded. Referral None recorded. Procedures None recorded. Surgeries None recorded. Imaging None recorded. Medication Orders fluocinolon e acetonide oil 0.01 % ear drops 2024 025 [facility], [address] [facility], [place], [address], 15:58:40 Patient TargetsNo targets recorded. Patient InstructionsNo instructions recorded. Reason for Referral None Reported. Results Created Date Observation Date Name Description Value Unit Range Abnormal Flag Note LastModifiedBy Organization Detail LastModifiedTime 04/16/20 audio gram No observ ation record ed. BARCODE Not Available 2024 10:15:13 Result Notes None recorded. Problems Name Problem SNOMED Code Status Onset Date Resolution Date Notes Provider Name and Address Organization Details Recorded Time Sensorineur al hearing loss of bilateral ears 199283160 Active 2024 SRINI BELL [address] [facility], [place], [phone], [facility] - [facility] 15:31:15 Chronic rhinitis 14235309 Active 2024 ARLETH CASPER MD [address] [facility],[place] [address], [place], [phone], [facility] - [facility] 15:56:30 Bilateral tinnitus 3095899949130 Active 2024 ARLETH CASPER MD [address] [facility],[place] [address], [place], [phone], [facility] - [facility] 15:56:38 Itching of ear 847427782 Active 2024 ARLETH CASPER MD [address] [facility], [address] [facility], [place], [phone], [facility] - [facility] 15:58:07 Problem Notes None recorded. Procedures Surgical History Date Name Laterality Status Provider Name and Address Organization Details Recorded Time JMSNasal/Sinus Endoscopy completed ARLETH SHERMAN MD [address] [facility],[address], [address], [facility] - [facility] 04/15/2025 15:56:24 Comp Audio with Tymps - 25244 & 50494 completed SRINI BELL [address] [facility],[place] [address], [place], [address], [facility] - [facility] 04/15/2025 15:29:16 total knee replacement completed Laurel Madden [place] - [facility] 04/15/2025 15:44:58 Imaging Results None recorded. Procedure Notes None recorded. Medical Equipment None Reported. Allergies Allergen ID Allergen Name Allergen Category Reaction Reaction Severity Criticality Documentation Date Start Date Code Code System Note Provider Name and Address Organization Details Recorded Time 570858 Abilify medicatio n Not available Not available Not available 04/15/2025 91893 3 RxNorm Laureljarek sellers [place] - [facility] 5 15:09:10 255576 Cymbalta medicatio n Not available Not available Not available 04/15/2025 46989 4 RxNorm Laurel sellers [place] - [facility] 5 15:09:18 Medications Name Sig Start Date Stop Date Status Note LastModified by Organization Details LastModified Time amoxicillin 500 mg capsule TAKE 2 CAPSULES BY MOUTH EVERY 8 HOURS FOR 14 DAYS 04/15 completed Not Available Not Available Not Available sulfasalazi ne 500 mg tablet TAKE 2 TABLETS BY MOUTH TWICE DAILY active Not Available Not Available No t Available trazodone 50 mg tablet TAKE 1 TABLET BY MOUTH NIGHTLY AT BEDTIME NEEDED active Not Available Not Available No t Available oxybutynin chloride ER 10 mg tablet,exte nded release 24 hr TAKE 1 TABLET BY MOUTH ONCE DAILY active Not Available Not Available No t Available ampicillin 500 mg capsule TAKE 1 CAPSULE BY MOUTH FOUR TIMES DAILY FOR 10 DAYS active Not Available Not Available No t Available venlafaxine ER 150 mg capsule,ext ended release 24 hr TAKE 1 CAPSULE BY MOUTH ONCE DAILY active Not Available Not Available No t Available amlodipine 2.5 mg tablet TAKE 1 TABLET BY MOUTH ONCE DAILY 04/15 completed Not Available Not Available Not Available sulfamethox azole 800 mg-trimetho prim 160 mg tablet TAKE 1 TABLET BY MOUTH TWICE DAILY FOR 10 DAYS active Not Available Not Available No t Available levothyroxi ne 88 mcg tablet TAKE 1 TABLET BY MOUTH IN THE MORNING 04/15 completed Not Available Not Available Not Available baclofen 10 mg tablet TAKE 1 TABLET BY MOUTH THREE TIMES DAILY active Not Available Not Available No t Available simvastatin 20 mg tablet TAKE 1 TABLET BY MOUTH AT BEDTIME active Not Available Not Available No t Available nystatin 100,000 unit/gram topical cream APPLY CREAM TOPICALLY TO AFFECTED AREA TWICE DAILY NEEDED 04/15 completed Not Available Not Available Not Available docusate sodium 100 mg capsule TAKE 1 CAPSULE BY MOUTH TWICE DAILY 04/15 completed Not Available Not Available Not Available omeprazole 20 mg capsule,del ayed release TAKE 1 CAPSULE BY MOUTH DAILY active Not Available Not Available No t Available furosemide 20 mg tablet TAKE 2 TABLETS BY MOUTH ONCE DAILY active Not Available Not Available No t Available hydroxychlo roquine 200 mg tablet TAKE 1 TABLET BY MOUTH TWICE DAILY active Not Available Not Available No t Available ibuprofen 600 mg tablet TAKE 1 TABLET BY MOUTH EVERY 8 HOURS NEEDED FOR PAIN 04/15 completed Not Available Not Available Not Available magnesium 250 mg (as magnesium oxide) tablet TAKE 1 TABLET BY MOUTH NIGHTLY AT BEDTIME 04/15 completed Not Available Not Available Not Available bupropion HCl XL 300 mg 24 hr tablet, extended release TAKE 1 TABLET BY MOUTH ONCE DAILY active Not Available Not Available No t Available pregabalin 75 mg capsule TAKE 1 CAPSULE BY MOUTH THREE TIMES DAILY active Not Available Not Available No t Available fluocinolon e acetonide oil 0.01 % ear drops INSTILL 5 DROPS INTO AFFECTED EAR(S) TWICE A WEEK active Not Available Not Available No t Available oxycodone 10 mg tablet TAKE 1 TABLET BY MOUTH THREE TIMES DAILY FOR PAIN. (TAPERING ) active Not Available Not Available No t Available levothyroxi ne 100 mcg capsule Take 1 capsule every day by oral route. active Not Available Not Available No t Available Antiseptic Skin Cleanser (chlorhexid ine) 4 % liquid USE DIRECTED EVERY DAY FOR 3 DAYS 04/15 completed Not Available Not Available Not Available OxyContin 15 mg tablet,candace h resistant,e xtended release TAKE 1 TABLET BY MOUTH TWICE DAILY NEEDED FOR PAIN DOSE DECREASE active Not Available Not Available No t Available OxyContin 10 mg tablet,candace h resistant,e xtended release TAKE 1 TABLET BY MOUTH THREE TIMES DAILY NEEDED FOR PAIN 04/15 completed Not Available Not Available Not Available Vitals Date Recorded Body height Body mass index (BMI) Body weight Provider Name and Address Organization Details Last Updated DateTime 04/15/2025 157.48 cm 34.4 kg/m2 83814.37 g Laurel Madden [place] - [facility] 04/15/2025 15:12:58 Social History None recorded. Functional Status None recorded. Mental Status None recorded. Family History Nothing Reported. Medical History Condition Response Bleeding Disorder Y Anemia Y Arthritis Y Anxiety Y Migraines Y Thyroid Problems Y Hypertension Y Depression Y Gynecological HistoryNo gynecological history recorded. Obstetrics History GPAL:G 0 P 0 0 0 0 Past Encounters Encounter ID Performer Location Encounter Start Date Encounter Closed Date Diagnosis/Indication Diagnosis SNOMED-CT Code Diagnosis ICD10 Code Diagnosis Note [id number] ARLETH CHILDS MD [facility] [address] [place] [address] 04/15/2025 14:23:43 04/15/2025 16:18:58 Sensorineural hearing loss of bilateral ears 972989581 H90.3 Audiologic al evaluation results: Normal sloping to mild sensorineu ral hearing loss with excellent word recognitio n, bilaterall y. Tympanomet ry: Right Ear:Type A Left Ear:Type A Chronic rhinitis 3873627 6 J31.0 Bilateral tinnitus 51934 63615 102 H93.13 Itching of ear 844068045 L29.9 Health Concerns Section Related Observation LastModified by Organization Detai ls LastModified Time None Recorded Concern Status LastModified by Organization Details LastModified Time None Recorded Advance Directives Directive None Recorded Payers Insurance Date Sequence Insurance Name Policy Number Policy Major Covered Member ID Major Member ID Guarantor Name 04/15/2025 1 [employer] - MEDICARE ADVANTAGE PLAN (MEDICARE REPLACEMENT HMO) [id number] Evelyne Claudio [id number] Evelyne Claudio Notes Date Note Type Note Provider Name and Address Organization Details Recorded Time 04/15/2025 text/html 3 years ago she was hospitalized for jaw infection requiring abx and surgical treatment. Bilateral tinnitus left more than right. High pitched noise. No dizziness but balance difficulty due to neuropathy and spine issues. She notes itching in her ears, her nose is itchy and she also feels sinus congestion. At times she might have some pulsatile noise in both ears. No history of carotid disease. She has been using oxymetazoline decongestant preparations twice daily as well as saline occasionally ARLETH SHERMAN MD [address], [address], [facility] - [facility] 04/15/2025 15:58:55 OBGyn Episode No OBEpisode recorded.
--- OUTSIDE RECORDS SUMMARY | 2025-05-04 13:42 | XMS_ITS | Clinical Summary ---
Author Organization Former[facility] Address [address] [place] [address] Care Team Providers Care Sign Builder Name Role Phone Cayla Peñaloza NP Primary Care Provider [phone] Social History Tobacco Use Types Packs/Day Years [...] (1 of 2) 2012 Influenza Vaccine (#1) 2025 RSV Adult > 60+ Yrs or Pregn ant (1 - 1-dose 75+ series) 2037 Hepatitis B Vaccines Aged Out No long er eligible based on patient's age to complete this topic RSV Ped < 20 months Aged Out No longe r eligible based on patient's age to complete this topic Care Teams Sign Builder Relationship Specialty Start Date End Date Cayla Peñaloza, TURRET PUNCH OPERATOR [facility] [id number] PCP - General Family Medicine 03/20/19
[2025-05-04 13:51] VITALS: BP 146/86
== END 2025-05-04 14:07 | disposition home or self-care (01) ==
LOC: HO.HMCH 13:04
PROVIDERS: PCP Registered Nurse
DX: Z13.9 Encounter for screening, unspecified (principal)

== ENCOUNTER → 2025-05-04 12:58 | Outpatient (BNVA) | payer MEDICARE, SELFPAY | PROVIDERS: PCP Registered Nurse | DX: E11.51 Type 2 diabetes mellitus with diabetic peripheral angiopathy without gangrene (principal); E11.40 Type 2 diabetes mellitus with diabetic neuropathy, unspecified; G89.4 Chronic pain syndrome; M06.00 Rheumatoid arthritis without rheumatoid factor, unspecified site; R22.41 Localized swelling, mass and lump, right lower limb; M79.89 Other specified soft tissue disorders; Z79.899 Other long term (current) drug therapy | CPT/HCPCS: 83036; 96127; 99212 ==

== ENCOUNTER 2025-05-10 07:23 | Inpatient (IN) | payer MEDICARE, SELFPAY ==
--- OUTSIDE RECORDS SUMMARY | 2024-01-10 06:40 | XMS_ITS ---
Author Organization [facility] Address [address] [place] [phone] Care Team Providers Care Outbound Sales Advisor Name Role Phone Anabela CANTRELL, Cayla Primary Care Provider Getachew De Dios Jr REASON FOR VISIT screening,hx polyps Encounters Encounter Location Date Provider Diagnosis [facility] [place] Outpatient [address] [place] [phone] 01/10/2024 Getachew Toscano Jr Encounter for screening colonoscopy Z12.11 and Personal history of colonic polyps Z86.010 Assessments Encounter Date Diagnosis (ICD Code) Assessment Notes Treatment Notes Treatment Clinical Notes Section Notes 01/10/2024 Encounter for screening colonoscopy (ICD-10 - Z12.11) 01/10/2024 Personal history of colonic polyps (ICD-10 - Z86.010) Plan Of Treatment No Information Progress Notes * BEAR KRAUSE MDOB: (64 yo F)Acc No.[id number]:01/10/2024 COLON WITH MAC Patient: BEAR HAYWARD Provider: Suri Toscano MD :1960 A ge:63 Y S ex:Female Date:01/10/2024 Address:[address] [place], [place] [phone] Pcp:Cayla Peñaloza NP Subjective: * Chief Complaints: [...] 01/10/2024 Generated for Rehan sullivan/Wali/Kennysmitting on: 0 05/10/2025 08:08 AM EDT
--- OUTSIDE RECORDS SUMMARY | 2024-02-13 11:00 | XMS_ITS | Continuity of Care Document ---
Author Organization [facility] Address [address] [place] [address] Phone Care Team Providers Care Circuit Tester Name Role Phone Flavio RIBEIRO, RVLeanne, NO, [...] E&M Established 15 Mins- CT & [place] [facility], [address]Javi [place], [id number], [place] tel:[phone] [place] Varicose veins of bilateral lower extremities with other complication sLymphedema, not elsewhere classified 4 Flavio RIBEIRO RVT, NO Davila. [address] [address], [place], [place], [id number], [place]. tel:[phone] Referring Provider: Cayla Peñaloza NP, [address] [facility] [place], [address]. tel:[phone] [facility], [address] [place] [address] [address]Javi [place], [id number], [place] tel:[phone] [place] Encounter for follow-up examination after completed treatment for conditions other than malignant neChronic venous hypertension (idiopathic) with other complication s of bilateral lower extremity 4 Flavio RIBEIRO RVT, NO Davila. [address] [address], [place], [place], [id number], [place]. tel:[phone] Referring Provider: Cayla Peñaloza NP, [address] [facility] [place], [address]. tel:[phone] [facility], [address] [place] [address] [address]Javi [place], [id number], [place] tel:[phone] CVR - [place] Varicose veins of left lower extremity with other complication s 4 Wyatt Briceno. [address] [facility] [address], [place], [place], [id number], [place]. tel:[phone] Referring Provider: Cayla Peñaloza NP, [address] [facility] [place], [address]. tel:[phone] [facility], [address] [place] [address] [address]J[place], [id number], [place] tel:[phone] CV[place] Encounter for follow-up examination after completed treatment for conditions other than malignant nePain in right leg 0 4 Flavio RIBEIRO RVT, NO Davila. [address] [place] [address], Suite [facility], [place], [id number], [place]. tel:[phone] Referring Provider: Cayla Peñaloza NP, [address] [facility] [place], [address]. tel:[phone] [facility], [address] [place] [address] [address]Javi [place], [id number], [place] tel:[phone] CV[place] - [place] Chronic venous hypertension (idiopathic) with inflammation of right lower extremity Nov- 4 Flavio RIBEIRO RVT, NO Davila. [address] [place] [address], Suite [facility], [place], [id number], [place]. tel:[phone] Referring Provider: Cayla Peñaloza NP, [address] [place] [address] [place] [address] [place], [address]. tel:[phone] [facility], [address] [place] [address] Dr [address]J[place], [id number], [place] tel:[phone] CV[place] - [place] Encounter for follow-up examination after completed treatment for conditions other than malignant neVaricose veins of right lower extremity with pain Nov- 4 Flavio RIBEIRO RVT, NO Davila. [address] [place] [address], [address] [address], [place], [id number], [place]. tel:[phone] Referring Provider: Cayla Peñaloza NP, [address] [facility] [place], [address]. tel:[phone] [facility], [address] [place] [address] [address]J[place], [id number], [place] tel:[phone] CVR - [facility] Varicose veins of right lower extremity with other complication s 4 Flavio RIBEIRO RVT, RPVI Robert. [address] [place] [address], [address], [place], [id number], [place]. tel:[phone] Referring Provider: Cayla Peñaloza NP, [address] [facility] [place], [address]. tel:[phone] Offic/outpt E&m Estab 5 Min Trial - [facility]medicine [facility], [address] [place] [address] [address], [id number], [place] tel:[phone] [facility] Localized edemaCramp and spasmRestles s legs syndromeVeno us insufficienc y (chronic) (peripheral) Disorder of pigmentation , unspecified [address] [facility] [address], [facility] [place], [id number], [place]. tel:[phone] Referring Provider: Cayla Peñaloza NP, [address] [facility] [place], [address]. tel:[phone] Offic Cons New/estab Mod-hi [address] [facility], [address] [place] [address] [address]J[place], [id number], [place] tel:[phone] CV - [facility] Varicose veins of bilateral lower extremities with other complication sVaricose veins of right lower extremity with inflammation Varicose veins of left lower extremity with inflammation Localized edemaRestles s legs syndromeLymp hedema, not elsewhere classifiedDi sorder of pigmentation , unspecifiedH ereditary lymphedemaCr amp and spasm Jul- 3 Pranay RIBEIRO FACS RVT RPGEMA Barahona. [address] [facility] [address], [facility] [place], [address], [place]. tel:[phone] Referring Provider: Cayla Peñaloza NP, [address] [facility] [place], [address]. tel:[phone] [place] [facility], [address] [place] [address] [address] 1000Javi [place], [id number], [place] tel:[phone] [facility] Chronic venous hypertension (idiopathic) with other complication s of bilateral lower extremity 3 Pranay RIBEIRO FACS RVT LEIDAVI Antonio Barahona. [address] [facility], [address], [place], [address], [place]. tel:[phone] Referring Provider: Cayla Peñaloza OIL FIRE SPECIALIST, [address] [place] [address] [address] Income Tax Expert [facility] In , [place], [address]. tel:[phone] Family History Family Member Type Diagnosis Age At Onset No Information Payers Payer name Insurance type Covered constitution party ID Thea alejandra(s) [employer] [place] [employer] CI [id number] Social History Type Description Quantity Date Captured [...]
--- OUTSIDE RECORDS SUMMARY | 2024-06-08 07:15 | XMS_ITS ---
Author Organization [facility] Address [address] [place] [address] Care Team Providers Care Coordinate Measuring Machine Operator Name Role Phone Lilo Davis Primary Care Provider UnavailAria Borrego [phone] Encounters Encounter Location Date Provider Diagnosis [address] [address] 06/08/2024 Aria Dodd Plan Of Treatment Next Appt Details Provider Name:Aria A Yousif , 07/26/2025 01:00:00 PM, [address] [place] [address], [phone], Progress Notes * Evelyne CLAUDIO MDOB: (64 yo F)Acc No.[id number]:06/08/2024 Progress Note Patient: Evelyne HAYWARD Provider: Leanne Dodd DPM :1960 A ge:63 Y S ex:Female Date:06/08/2024 Address:[address] [place], [place] [address]Grace mcintoshTETER[place], [id number] Pcp:Lilo Davis Subjective: * Chief Complaints: * [...] 0 06/08/2024 Generated for Rehan sullivan/Wali/Elba on: 0 05/10/2025 08:08 AM EDT
[2025-05-10] VITALS (10 sets, daily range): BP systolic 95–118; BP diastolic 36–74; PULSE 81–106; RESP 16–25; TEMP 36–37.3; O2SAT 85–96; BMI 29.2; BMI 33.2; BMI 34.0
--- NOTE | ~2025-05-10 | XR_ITS ---
EXAMINATION: XR CHEST CLINICAL INFORMATION: Chest pain COMPARISON: CT on May 11, 2025 and December 02, 2022 TECHNIQUE: Frontal view of the chest was obtained. FINDINGS: Left-sided portacatheter is in place. It appears shallowly placed with the pigtail remaining within the pleural space. Left pleural effusion and parenchymal opacity minimally improved compared to the CT change management lead. Small right basilar opacity is present. XR/XR chest 1V IMPRESSION: Left pleural catheter has possibly migrated outward. The distal end of the pigtail catheter projects within the pleural space. Increasing right basilar density could represent bronchial spread of pneumonia. Electronically signed by: Dean Schmitz MD 05/12/2025 02:30 PM EDT RP
--- NOTE | ~2025-05-10 | CT_ITS ---
EXAMINATION: CT CHEST ANGIOGRAPHY WITH IV CONTRAST INDICATION: pleuritic L sided chest pain COMPARISON: Comparison is made with the prior examination dated 03/29/2025. TECHNIQUE: Helical CT scan of the chest was performed following administration of intravenous contrast (65 mL Omnipaque 350). The contrast bolus was timed to optimally opacify the pulmonary arteries. Thin sections were obtained through the pulmonary arteries. Coronal and sagittal reformatted images were generated. 3D/MIP reconstructed images are also obtained and reviewed. This CT exam was performed with one or more of the following dose reduction techniques: automated exposure control, adjustment of the mA and/or kV according to patient size, use of iterative reconstruction technique. DLP: 88 mGy-cm CHEST: THYROID: The thyroid gland is unremarkable. PULMONARY ARTERIES: No intraluminal filling defects are identified within the pulmonary arteries to suggest pulmonary emboli. LUNGS: There is confluent airspace opacity in the left upper lobe, consistent with pneumonia. There is subtotal atelectasis of the left lower lobe. MEDIASTINUM: There is no mediastinal lymphadenopathy. LEONARDO: There is no hilar lymphadenopathy. CARDIOVASCULATURE: The heart is normal in size. There is no pericardial effusion. The thoracic aorta is normal in caliber. DEGREE OF CORONARY CALCIFICATION: mild PLEURA: There is a moderate-sized left pleural effusion, portions of which may be loculated superiorly. No pneumothorax. MAIN AIRWAYS: The mainstem bronchi and proximal branches are patent. AXILLA: There is no axillary lymphadenopathy. UPPER ABDOMEN: The visualized portions of the liver, spleen, and adrenals are unremarkable. There is a 6.0 x 2.3 cm fluid collection anterior to the liver which is unchanged dating back to 09/13/2021. BONES AND SOFT TISSUES: Unremarkable. CT/CT angio chest PE protocol IMPRESSION: 1. No evidence of pulmonary emboli. 2. Left upper lobe pneumonia. Moderate left pleural effusion, likely loculated. 3. Subtotal atelectasis of the left lower lobe. Electronically signed by: Giovanni Mauricio MD 05/10/2025 10:29 AM EDT
--- NOTE | ~2025-05-10 | CT_ITS ---
PROCEDURE: CT-GUIDED INSERTION, PLEURAL CATHETER CLINICAL INFORMATION: Left-sided pneumonia with loculated pleural effusion, hypoxia,? Empyema. COMPARISON: 05/10/[address] examination was performed using dose optimization techniques as appropriate, variously including the following: *Automated exposure control *Adjustment of mA and/or kV according to patient size (this includes techniques or standardized protocols for targeted exams where dose is matched to indication/reason for exam; i.e. extremities or head) *Use of iterative reconstruction technique TECHNIQUE: Informed consent was obtained from the patient. Procedure was performed under mild conscious sedation. The patient was placed in a slight RPO position on the CT table, and preliminary freight inspector scan was performed of the chest. A suitable access site was identified in the left lateral chest wall, and the site marked. Site was subsequently cleansed, and prepped and draped in sterile fashion using standard technique. 1% lidocaine was utilized for skin and subcutaneous soft tissue anesthesia. Subsequently, a 5 [place] 10 cm Yueh catheter was advanced under CT fluoroscopic guidance into the left lateral pleural space, and return of clear, gali-colored pleural fluid was noted. Approximately 60 mL of fluid was aspirated and sent for laboratory evaluation. A .035 guidewire was then advanced through the Yueh catheter into the loculated left pleural collection, and using Seldinger technique, a 10 [place] pigtail drainage catheter was advanced over the wire into the left pleural space. The central trocar was withdrawn, and the pigtail was formed. Return of pleural fluid was noted at the hub of the catheter. The catheter was sutured in place, and attached to pleurovac. Limited post procedural scanning of the chest demonstrated a tiny pneumothorax at the access site. Acceptable positioning of the catheter was noted. The patient tolerated the procedure well, there were no immediate complications. CT/CT chest tube placement IMPRESSION: Successful CT guided insertion of a left sided 10 [place] pigtail pleural drainage catheter. No immediate complications. Electronically signed by: Janak Ash MD 05/11/2025 12:20 PM EDT
--- NOTE | ~2025-05-10 | XR_ITS ---
CLINICAL HISTORY: ETT placement 1 view chest x-ray Comparison: CR/SR - XR CHEST 1 VIEW - 05/13/25 15:53 EDT Findings: Interval placement of endotracheal tube with the tip 2.5 cm proximal to the benito. Interval placement of enteric tube extending below the diaphragm but the tip was not imaged. Stable pigtail left sided thoracostomy tube at lateral aspect of the left hemithorax. Interval improvement of left pleural effusion with decrease in size and some aeration in left upper and midlung. No significant pneumothorax. No acute fracture. IMPRESSION: 1. Endotracheal tube with tip 2.5 cm proximal to the benito. 2. Stable left pigtail thoracostomy tube with decrease in size of left pleural effusion with some aeration of left upper and midlung. This document has been electronically signed by: Jesusita Bhatti MD on 05/13/2025 22:49:38
--- NOTE | ~2025-05-10 | CT_ITS ---
CLINICAL HISTORY: worsening effusion, ?chest tube location CT chest without contrast Comparison: None provided Findings: Limited evaluation without intravenous contrast. The heart is normal size. Small pericardial effusion is demonstrated measuring up to 1.2 cm in thickness on the right. Atherosclerotic vascular disease. No aneurysm of thoracic aorta. Left hemithorax is completely opacified with pleural effusion in the left lung is completely opacified with no aeration. No mediastinal shift. A pigtail left-sided thoracostomy tube in mid chest laterally with the tube extending approximately 2.5 cm into the left hemithorax. Scattered interstitial infiltrates in the right upper lobe, right middle lobe and right lower lobe. Mild right basilar opacity likely atelectasis and minimal right pleural effusion. No pneumothorax Thyroid and thoracic esophagus within normal limits. 2.2 cm exophytic cyst of the left kidney partially visualized. No acute findings in upper abdomen. No acute fractures. Multilevel degenerative changes in the thoracic spine. Lower cervical spine anterior hardware fusion IMPRESSION: 1. Complete opacification of the left hemithorax with large pleural effusion in the left lung is completely opacified either compressive atelectasis or pneumonia. 2. Left lateral pigtail thoracostomy tube extending approximately 2.5 cm into the left hemithorax. 3. Scattered interstitial infiltrates in the right lung. Right basilar atelectasis and minimal right pleural effusion. 4. Small pericardial effusion. 5. Additional nonacute findings as described. This document has been electronically signed by: Jesusita Bhatti MD on 05/13/2025 18:43:51
--- NOTE | ~2025-05-10 | US_ITS ---
EXAMINATION: US LOWER EXTREMITY VEINS LIMITED FOLLOW UP RIGHT HISTORY: pain, swelling COMPARISON: Comparison is made with the prior examination dated 12/01/2022. TECHNIQUE: Duplex and color Doppler sonographic examination of the deep venous system of the right lower extremity was performed. FINDINGS: The common femoral, superficial femoral, and popliteal veins are patent demonstrating normal compressibility, spontaneous flow, and augmentation. There is a normal color and spectral Doppler waveform appearance of the visualized deep venous system above the knee. There is limited visualization of the posterior tibial and peroneal veins. There is a 4.0 x 3.7 x 2.0 cm cyst of the proximal thigh. US/US venous duplex LE RT IMPRESSION: 1. No evidence of acute DVT in the right lower extremity. 2. 4.0 x 3.7 x 2.0 cm cyst of the proximal right thigh. Electronically signed by: Giovanni Mauricio MD 05/10/2025 08:56 AM EDT
--- NOTE | ~2025-05-10 | XR_ITS ---
EXAMINATION: XR CHEST CLINICAL INFORMATION: hypoxia COMPARISON: Prior day, and CT chest 05/10/2025. TECHNIQUE: Frontal view of the chest was obtained. FINDINGS: Left-sided pleural catheter is located just at the margin of the left lateral pleural space, apparently having retracted since placement on 05/11/2025. The pigtail appears likely intrathoracic although determination cannot be made on this single image. Cardiac silhouette is completely obscured on the left. There is mild mediastinal shift to the right, worsening. Previously seen aerated lung in the left upper lung region is no longer evident. There is now complete whiteout of the left hemithorax. The right lung remains clear without effusion or pneumothorax. No focal osseous or soft tissue abnormality. XR/XR chest 1V IMPRESSION: 1. Complete whiteout of the left hemithorax now present with mild right mediastinal shift. This likely represents a combination of consolidation and effusion. 2. The left-sided pigtail pleural catheter may be extrapleural and has retracted although is similar in position to the prior day's examination. 3. The right lung remains clear without effusion or pneumothorax. Above findings communicated to Dr. Garcia via secure text at 4:24 PM, 05/13/2025, with communication of findings understood. Electronically signed by: Janak Ash MD 05/13/2025 04:25 PM EDT
--- NOTE | 2025-05-10 07:47 | ECG_ITS ---
Test Reason : dyspnea Blood Pressure : */* mmHG Vent. Rate : 91 BPM Atrial Rate : 91 BPM P-R Int : 180 ms QRS Dur : 68 ms QT Int : 340 ms P-R-T Axes : -3 7 34 degrees QTcB Int : 418 ms Normal sinus rhythm Normal ECG When compared with ECG of 12-Jan-2024 06:11, Left posterior fascicular block is no longer Present Referred By: Pattie Urias Electronically Signed By: DYAN MARS
[2025-05-10 08:03] LABS: Venous Blood Gas Refer to POC result
[2025-05-10 08:04] LABS: VBG HCO3 37 mmol/L (22-26); VBG O2 % Saturation 97.0 %
[2025-05-10 08:07] LABS: INTERNATIONAL NORM RATIO 1.1 (0.9-1.1); Prothrombin Time 12.1 SEC (10.9-12.4)
--- OUTSIDE RECORDS SUMMARY | 2025-05-10 08:08 | XMS_ITS | Clinical Summary ---
Author Organization [facility] Address [address] [place] [address] Care Team Providers Care Warehouse Order Filler Name Role Phone Cayla Peñaloza NP Primary Care Provider [phone] Social History Tobacco Use Types Packs/Day Years [...] age to complete this topic Care Teams Warehouse Order Filler Relationship Specialty Start Date End Date Cayla Peñaloza, AEROSPACE MEDICINE PHYSICIAN [facility] [id number] PCP - General Family Medicine 03/20/19
--- OUTSIDE RECORDS SUMMARY | 2025-05-10 08:08 | XMS_ITS | Clinical Summary ---
Author Organization [facility] Address [address] [place] [address] Care Team Providers Care Coal Dumping Equipment Operator Name Role Phone Cayla Peñaloza NP Primary Care Provider [phone] Allergies Active Allergy Reactions Criticality Noted Date [...] metroNIDAZOLE (FLAGYL) 500 MG tabletIndicatio ns:Abscess of economics instructor space of mouth Take 1 tablet (500 mg total) by mouth 2 (two) times a day. Take with meals or food to reduce stomach upset. 44 tablet 2 Active cephalexin (KEFLEX) 500 MG capsuleIndicati ons:Abscess of economics instructor space of mouth Take 2 capsules (1,000 mg total) by mouth 2 (two) times a day. 88 capsule 2 Active baclofen (LIORESAL) 5 MG tabletIndicatio ns:Abscess of economics instructor space of mouth Take 3 tablets (15 [...] Problem Noted Date Diagnosed Date Abscess of economics instructor space of mouth 01/16/2022 Overview (01/16/2022): Added automatically from request for surgery [id number] Facial abscess 01/16/2022 Family History Medical History [...] age to complete this topic Insurance [facility] MEDICARE Advance Directives * Full Code (Latest Code Status on File) Date Activated Date Inactivated Comments 01/16/2022 11:40 PM Care Teams Coal Dumping Equipment Operator Relationship Specialty Start Date End Date Cayla Peñaloza NP [address] [place] [id number] PCP - General Family Medicine 01/16/22
--- OUTSIDE RECORDS SUMMARY | 2025-05-10 08:09 | XMS_ITS | Clinical Summary ---
Author Organization 175 [facility] Address [address] [place] [address] Phone Care Team Providers Care Escrow Secretary Name Role Phone Lilo Davis Primary Care Provider [phone] Allergies Active Allergy Reactions Criticality Noted Date [...] getting referral to cardiology Dr. Taylor at [facility]. She has history of lymphedema, her [...] answered. Cervical cord compression wi th myelopathy ([facility] V24, 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 V24, [facility] V28) 04/20/2020 Overview (08/31/2024): Last Assessment & Plan: Managed by rheumatology, taking hydroxychloroquine and sulfasalazine Pyogenic inflammation of bone ([facility] V24, 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 V24, [facility] V28) 10/17/2017 Overview (08/31/2024): Last Assessment & Plan: Labs as ordered for treatment evaluation, she notes very sedentary lifestyle Status post total left knee replacement 10/17/20 17 Depression, major, recurrent , in partial remission ([facility] V24) 06/02/2015 Major depressive disorder, r ecurrent episode, in partial remission ([facility] V24) 06/18/2013 Opioid type dependence ([facility] V24, [facility] V28 ) 05/21/2013 Overview (08/31/2024): IMO update Alcohol abuse 04/03/2012 Back pain 04/03/2012 DJD (degenerative joint disease) of knee 012 Hypercholesteremia 04/03/2012 Hypertension 04/03/2012 Obesity 04/03/2012 Tobacco dependence 04/03/2012 Encounters Date Type Department Care Team Description 04/16/2025 11:45 AM EDT Office Visit Orthopedic Surgery [facility] [address] [phone] Yu Hernández MD Cubital tunnel syndrome on left (Primary Dx) 03/05/2025 11:15 AM EDT Office Visit Orthopedic Surgery [facility] 175 [facility] [address] [place] [phone] Laurel Haynes PA Left elbow pain (Primary Dx); Cubital tunnel syndrome on left 02/16/2025 3:42 PM EDT - 02/16/2025 11:59 PM EDT Hospital Encounter [facility] [address] [place] [phone] Left elbow pain Discharge Disposition: Home or [...] 2, co ntrolled, with complications (CMS/HCC V24, [facility] V28) DX:Diabetes mellitus type 2, controlled, with complications ([facility]) Esophageal reflux DX:Esophageal reflux Anxiety state [...] Pneumococcal Vaccine: 50+ Years Completed 07/19/2017, 05/12/2015 HIB Vaccines Aged Out [...] Dodson RN Medical Devices Implanted Type Area Validation Technician Device Identifier Shelf Expiration Date Model / [...] * Annual BMP Blood Test (12/04/2023) Pathologist [facility] Annual BMP Blood Test Abstarcted Historical Provider HEALTH MAINTENANCE Final Result * Hemoglobin A1c (12/04/2023) [facility] Hemoglobin A1C 0.0 % Comment:No Interpretation, A bstracted Blood Venous blood specimen / Unknown Result [facility] Historical Provider LAB BLOOD ORDERABLES Madelaine l Result * Lipid panel (12/04/2023) [facility] LDL/HDL Ratio 0 Comment:No Interpretation, A bstracted Triglycerides 0 mg/dL Comment:No Interpretation, A bstracted Cholesterol 0 mg/dL Comment:No Interpretation, A bstracted HDL 0 mg/dL Comment:No Interpretation, A bstracted LDL Cholesterol 0 mg/dL Comment:No Interpretation, A bstracted Blood Venous blood specimen / Unknown Result [facility] Provider LAB BLOOD ORDERABLES Madelaine l Result from Last 3 Months or Most Recently Relevant to Health Maintenance Additional Health Concerns Active Problems Noted Date Diagnosed Date Impaired Tissue 09/22/2024 Education needed on impact of smoking on wound 1 11/22/2023 Education needed related to ulceration/compromised skin integrity. 09/22/2024 [place] [phone] [employer] Care Teams Escrow Secretary Relationship Specialty Start Date End Date Lilo Davis PA [address] [facility], [address] [place] [address] PCP - General 02/01/25
--- OUTSIDE RECORDS SUMMARY | 2025-05-10 08:09 | XMS_ITS | Data Portability ---
Author Organization [place] [facility] Address [address] [place] [phone] Care Team Providers Care Dividing Machine Operator Name Role Phone LAZARO BONDS Primary Care [...] also has nasal congestion and overuse of [id number] decongestant preparations. I have recommended saline irrigations, [...] oil 0.01 % ear drops 2024 025 [facility] [facility], [place], [address], 15:58:40 Patient TargetsNo targets recorded. Patient InstructionsNo [...] Sensorineur al hearing loss of bilateral ears 643421722 Active 2024 SRINI BELL [address] [facility],[address] [facility], [place], [address], [facility] - [facility] 15:31:15 Chronic rhinitis 66338288 Active 2024 ARLETH CASPER MD [address] [facility],[place] [address], [place], [phone], [facility] - [facility] 15:56:30 Bilateral tinnitus 1683820901034 Active 2024 ARLETH CASPER MD [address] [facility],[place] [address], [place], [address], [facility] - [facility] 15:56:38 Itching of ear 001700377 Active 2024 ARLETH CASPER MD [address] [facility], [address] [facility], [place], [address], [facility] - [facility] 15:58:07 Problem Notes None recorded. Procedures Surgical History Date Name Laterality Status Provider Name and Address Organization Details Recorded Time JMSNasal/Sinus Endoscopy completed ARLETH SHERMAN MD [address] [facility],[address], [address], [facility] - [facility] 04/15/2025 15:56:24 Comp Audio with Tymps - 14920 & 53532 completed SRINI BELL [address] [facility],[place] [address], [place], [address], [facility] - [facility] 04/15/2025 15:29:16 total knee replacement completed Laurel Madden [place] [facility] 04/15/2025 15:44:58 Imaging Results None recorded. Procedure Notes None recorded. Medical Equipment None Reported. Allergies Allergen ID Allergen Name Allergen Category Reaction Reaction Severity Criticality Documentation Date Start Date Code Code System Note Provider Name and Address Organization Details Recorded Time 649579 Abilify medicatio n Not available Not available Not available 04/15/2025 18380 3 RxNorm Laureljarek sellers [place] - [facility] 5 15:09:10 [id number] Cymbalta medicatio n Not available Not available Not available 04/15/2025 64848 4 RxNorm Laurel sellers [place] - Ear [...] Updated DateTime 04/15/2025 157.48 cm 34.4 kg/m2 32852.37 g Laurel Madden [place] [facility] 04/15/2025 15:12:58 Social History None recorded. Functional Status None recorded. Mental Status None recorded. Family History Nothing Reported. Medical History Condition Response Anxiety Y Migraines Y Thyroid Problems Y Depression Y Anemia Y Bleeding Disorder Y Arthritis Y Hypertension Y Gynecological HistoryNo gynecological history recorded. Obstetrics History GPAL:G 0 P 0 0 0 0 Past Encounters Encounter ID Performer Location Encounter Start Date Encounter Closed Date Diagnosis/Indication Diagnosis SNOMED-CT Code Diagnosis ICD10 Code Diagnosis Note [id number] ARLETH CHILDS MD [facility] [address] [place] [address] 04/15/2025 14:23:43 04/15/2025 16:18:58 Sensorineural hearing loss of bilateral ears 640239495 H90.3 Audiologic al evaluation results: Normal sloping to mild sensorineu ral hearing loss with excellent word recognitio n, bilaterall y. Tympanomet ry: Right Ear:Type A Left Ear:Type A Chronic rhinitis 5506433 6 J31.0 Bilateral tinnitus 17389 70828 102 H93.13 Itching of ear 793018543 L29.9 Health Concerns Section Related Observation LastModified by Organization Detai ls LastModified Time None Recorded Concern Status LastModified by Organization Details LastModified Time None Recorded Advance Directives Directive None Recorded Payers Insurance Date Sequence Insurance Name Policy Number Policy Major Covered Member ID Major Member ID Guarantor Name 04/15/2025 1 [employer] MED[employer]ARE ADVANTAGE PLAN (MEDICARE REPLACEMENT HMO) [id number] Evelyne Claudio [id number] Evelyne Claudio Notes Date Note Type Note [...] as saline occasionally ARLETH SHERMAN MD [address], [address], [facility] - [facility] 04/15/2025 15:58:55 OBGyn Episode No OBEpisode recorded.
[2025-05-10 08:10] LABS: Partial Thromboplastin Time 32.6 SEC (26.0-36.8)
--- NOTE | 2025-05-10 08:16 | PC.NURSE ---
patient presented to the ED with increased sob and productive cough since saturday, noted to be satting 86% on room air, placed on 2l/NC sat up to 92%. patient endorses pain on left side / ribs, patient endorses pain that is worse with coughing, movement and palpation. #18 placed in patient LFA, cultures and labs obtained. patient placed on tele monitor. patient right leg noted to be mottled and swollen, positive pedal pulses, patient states it feels numb. patient describes pain as 9/10
[2025-05-10 08:22] LABS: B Type Natriuretic Peptide 88 pg/mL (<100)
--- NOTE | 2025-05-10 08:25 | ED.SOB ---
HPI - SOB/Dyspnea General Chief Complaint: General Medical Stated Complaint: pain under l breast Time Seen by Provider: 05/10/25 07:40 Source: patient, family and old records reviewed Mode of arrival: ambulatory Limitations: no limitations History of Present Illness ED Provider: WESTON OLSEN Narrative: 64 yo female with PMH of RA on plaquenil, chronic bronchitis, PVD, PE in 2019 but completed 6 months of anti coagulation, bacteremia from past in strep pyogenes, DM, R thigh mass - has been worked up in past, hypothyroidism, she notes since Saturday she has had cough with sputum but no fevers, L sided pleuritic chest pain that when she breathes she feels it in her neck and L posterior back. She also thinks her R leg is more swollen than L but states this could be chronic. She reports no n/v/d. She was hypoxic on arrival 85% on RA. now 94% on 4L NC. She denies any recent sick contacts, travel, procedures. She has a chronic thigh mass that is being worked up. She states she follows with pulmonology. MD elicited complaint: shortness of breath Pertinent past history: diabetes, pneumonia and PE Onset (ago): day(s) (Saturday) Context: other Timing: progressively worsening Severity: moderate Exacerbating factors: lying flat, exertion and inspiration Relieving factors: oxygen and rest Known history of: diabetes Associated symptoms: chest pain, pain with inspiration, cough and sputum production Treatment prior to arrival: none Related Data Home Medications ?Medication ?Instructions ?Recorded ?Confirmed blood sugar diagnostic (FreeStyle 08/12/20 05/04/25 Lite Strips) albuterol sulfate 90 mcg/actuation 1 puff inhalation Q4H 11/08/21 05/10/25 aerosol inhaler levothyroxine 88 mcg tablet 88 mcg PO DAILY@0600 01/28/25 05/10/25 bupropion HCl 300 mg 24 hr tablet, 300 mg PO DAILY 02/18/25 05/10/25 extended release trazodone 50 mg tablet 50 mg PO BEDTIME 02/22/25 05/10/25 acetaminophen 500 mg tablet 1,000 mg PO TID PRN Pain 05/10/25 05/10/25 cholecalciferol (vitamin D3) 25 25 mcg PO DAILY 05/10/25 05/10/25 mcg (1,000 unit) tablet (Vitamin D3) magnesium oxide 400 mg (241.3 mg 400 mg PO BEDTIME 05/10/25 05/10/25 magnesium) tablet multivitamin 1 tab PO DAILY 05/10/25 05/10/25 omeprazole 20 mg capsule,delayed 20 mg PO DAILY@0630 05/10/25 05/10/25 release pregabalin 75 mg capsule 75 mg PO BID@0800,1200 05/10/25 05/10/25 Previous Rx's ?Medication ?Instructions ?Recorded docusate sodium 100 mg capsule 100 mg PO BID #90 caps 02/16/25 hydroxychloroquine 200 mg tablet 200 mg PO BID 90 days #180 tabs 03/19/25 ibuprofen 600 mg tablet 600 mg PO Q8H PRN for pain #90 tabs 03/19/25 sulfasalazine 500 mg tablet 1 g (2 x 500 mg) PO BID 90 days 03/19/25 #360 tabs furosemide 20 mg tablet 40 mg (2 x 20 mg) PO DAILY #90 tabs 04/03/25 oxycodone 10 mg tablet 10 mg PO TID pain 28 days #69 tabs 04/20/25 oxycodone 15 mg tablet,crush 15 mg PO BID PRN pain #42 tabs 04/20/25 resistant,extended release 12 hr (OxyContin) simvastatin 20 mg tablet 20 mg PO BEDTIME #90 tabs 04/20/25 Diabetic shoe with inserts #1 ea 05/04/25 baclofen 10 mg tablet 10 mg PO TID PRN Muscle Spasm 30 05/04/25 days #90 tabs oxybutynin chloride 10 mg 10 mg PO DAILY #90 tabs 05/04/25 tablet,extended release 24 hr pregabalin 150 mg capsule 150 mg PO BEDTIME #30 caps 05/04/25 venlafaxine 150 mg 150 mg PO DAILY #90 caps 05/04/25 capsule,extended release 24 hr Allergies Allergy/AdvReac Type Severity Reaction Status Date / Time lisinopril Allergy Intermediate Swelling Verified 05/10/25 07:28 clavulanic acid (From Allergy Mild RASH Verified 05/10/25 07:28 Augmentin) aripiprazole (From ABILIFY) AdvReac Intermediate EDEMA Verified 05/10/25 07:28 duloxetine (From CYMBALTA) AdvReac Intermediate WT Verified 05/10/25 07:28 GAIN/EDEMA Review of Systems Review of Systems: Constitutional : No Fever, No Chills ENT/Mouth : No Hoarseness, No sore throat, No Rhinorrhea Eyes: No Redness, No Discharge, No Vision Changes Cardiovascular : No Chest Pain, positive SOB, positive Dyspnea on Exertion, pos Edema Respiratory : positive Cough, pos Sputum, positive Wheezing, Gastrointestinal : No Nausea, No Vomiting, No Diarrhea, No abdominal Pain Genitourinary : No Dysuria, No Hematuria Musculoskeletal : No joint pain, No Myalgias Skin : No rash Neuro : No Weakness, No Numbness, No Headache Psych : No anxiety, depression All other systems reviewed and are negative PMFSH Past Medical History Attestation statement: The following information was validated with the patient. Source: old records reviewed Medical History Mass of right thigh Diabetes History of pulmonary embolism Nicotine dependence, cigarettes, uncomplicated Overactive bladder Thyroid disease Elevated cholesterol Spinal stenosis Anxiety Depression HTN (hypertension) Constipation GERD (gastroesophageal reflux disease) Long-term use of hydroxychloroquine Alcohol abuse Chronic bronchitis Seronegative rheumatoid arthritis Pilonidal cyst Neuropathy Carpal tunnel syndrome Rheumatoid arthritis Osteomyelitis Osteoarthritis Pleurisy Surgical History History of thoracic spinal fusion Hx of cervical spine surgery History of elbow surgery H/O colonoscopy History of total right knee replacement (TKR) H/O hernia repair History of surgery on arm History of left knee replacement (~2017) Previous back surgery (~2016) Family History Family History Mother CHF (congestive heart failure) Stroke Uterine cancer Father CHF (congestive heart failure) Sister Diabetes Brother Diabetes Pulmonary embolism Other Mental health disorder Substance use disorder Social History Social History Household Members: None Housing: Apartment Are you a primary direct support professional caregiver to a significant other at home: No Unable to assess alcohol history related to: Unable to respond Alcohol intake: current Alcohol intake frequency: 3 or more drinks per day Alcohol type: hard liquor Patient Tobacco Use Status: Current everyday Tobacco user Tobacco use type: Cigarette Cigarette Packs Per Day: 1.5 Cigarettes Per Day: 30.0 Years Smoked: 40 Smoked in Last 30 Days: Yes e-Cigarette/Vaping Use: Never Used Second Hand Smoke Exposure: Yes Use of substances other than those prescribed or required for medical reasons: Yes Substance Use Type: Marijuana Substance Use Frequency: Chronic Longstanding Advance Directives: Yes Advance Directives Information Provided: No Advance Directives on File: No Do you have a plan to hurt others: No Plan Patient : No service: No Current occupational status: unemployed Cognitive needs: Yes (walker, cane) Hearing needs: No Vision needs: Yes (Reading glasses) Physical Exam Vital Signs: Vital Signs: Last Vital Signs Temp 98.5 F 05/10/25 14:10 Pulse 95 05/10/25 14:10 Resp 25 H 05/10/25 14:10 BP 107/52 L 05/10/25 14:10 Pulse Ox 94 05/10/25 14:10 O2 Del Method Nasal Cannula 05/10/25 14:10 O2 Flow Rate 3 05/10/25 14:10 BMI result Body Mass Index 33.2 Appearance: Alert. Oriented X3. Mild acute distress. Eyes: Pupils equal, round and reactive to light. ENT: Pharynx normal. Neck: Normal inspection. Neck supple. CVS: tachycardic heart rate and rhythm. Pulses normal. Respiratory: Mild resp distress, tachypnea, splinting L side Abdomen: Soft and nontender. Skin: Skin warm and dry. Normal skin color. Normal skin turgor. Extremities: R leg >> L leg purplish in color on medial aspect pulses are intact both legs, she notes her R calf hurts, R upper thigh soft half dollar sized mobile superficial lesion felt - not in groin area Neuro: Oriented X 3. No motor deficit. No sensory deficit. CN2-12 intact Course Course Course Narrative: plan for IR chest tube and admission Medications Administered Generic Name Dose Route Start Last Admin Trade Name Freq PRN Reason Stop Dose Admin Hydromorphone HCl 0.5 mg 05/10/25 13:33 05/10/25 13:46 Hydromorphone Hcl 0.5 Mg/0.5 Ml Syringe IVPUSH 0.5 mg Q3H PRN Administration Pain, Severe (Pain Scale 7-10) Protocol Metronidazole 500 mg in 100 mls @ 100 mls/hr 05/10/25 13:00 05/10/25 13:45 Flagyl IV 100 mls/hr Q8H EVIN Administration Discontinued Medications Generic Name Dose Route Start Last Admin Trade Name Dmitri PRN Reason Stop Dose Admin Ceftriaxone Sodium 1 gm 05/10/25 07:47 05/10/25 08:00 Ceftriaxone Sodium 1 Gm Vial IVPUSH 05/10/25 07:48 1 gm ONCE ONE Administration Acetaminophen 1,000 mg in 100 mls @ 400 mls/hr 05/10/25 08:33 05/10/25 09:57 Ofirmev IV 05/10/25 08:47 Infused ONCE ONE Infusion Azithromycin 500 mg/ Sodium 250 mls @ 125 mls/hr 05/10/25 09:37 05/10/25 13:33 Chloride IV 05/10/25 11:36 Infused ONCE ONE Infusion Lactated Ringer's 1,000 mls @ 500 mls/hr 05/10/25 09:37 05/10/25 13:33 Lr IV 05/10/25 11:36 Infused .Q2H ONE Infusion Vancomycin HCl 2,000 mg in 500 mls @ 250 mls/hr 05/10/25 10:41 05/10/25 13:34 Vancomycin/Ns IV 05/10/25 12:40 Infused ONCE ONE Infusion Iohexol 100 ml 05/10/25 09:45 05/10/25 09:45 Iohexol 350 Mg/Ml 100 Ml Infus..Btl IV 05/10/25 09:46 75 ml ONCE ONE Administration Morphine Sulfate 2 mg 05/10/25 08:33 05/10/25 08:49 Morphine Sulfate 2 Mg/Ml Cartridge IVPUSH 05/10/25 08:34 2 mg ONCE ONE Administration Protocol Morphine Sulfate 2 mg 05/10/25 10:06 05/10/25 10:27 Morphine Sulfate 2 Mg/Ml Cartridge IVPUSH 05/10/25 10:07 2 mg ONCE ONE Administration Protocol Oxycodone HCl 5 mg 05/10/25 11:02 05/10/25 11:13 Oxycodone Hcl Immed Release 5 Mg Tablet PO 05/10/25 11:03 5 mg ONCE ONE Administration Medical Decision Making Medical Decision Making MDM Narrative: 64 yo female with PMH of RA on plaquenil, chronic bronchitis, PVD, PE in 2019 but completed 6 months of anti coagulation, bacteremia from past in strep pyogenes, DM, R thigh mass here with R leg swelling, hypoxia, pleuritic chest pain with concerns for pneumonia, VTE given hx, ACS less likely. She will get labs, lactic acid, VBG, O2 supplementation, DVT study, CTA:PE. Empiric ceftriaxone as well in case of pneumonia. Given O2 requirements will need admit if PE and DVT will involve vascular surgery Differential Diagnosis Differential Diagnoses: The differential diagnosis associated with the presentation includes pneumonia, PE, pleurisy, mass, ACS Admission/Observation Consideration of admission/observation: Escalation of care including admission/observation considered admit for hypoxia, will need IR intervention Consult Healthcare Provider Management of the patient was discussed with: Hospitalist and Slurry Plant Operator will ask IR to place tube on patient hospitalist able to admit after Lab Data MDM Lab Attestation statement: I reviewed the patient's lab results. 05/10/25 10:45 05/10/25 08:51 Labs: Lab Results 05/10/25 05/10/25 05/10/25 Range/Units 07:53 07:54 07:58 WBC (4.8-10.8) X10*3/uL RBC (4.20-5.50) X10*6/uL Hgb (12.0-16.0) g/dl Hct (37.0-47.0) % MCV (80.0-98.0) fL MCH (27.0-33.0) pg MCHC (31.0-35.0) g/dl RDW (11.0-16.0) % Plt Count (160-400) X10*3/uL MPV (9.4-12.3) fL Immature Gran % (Auto) (0.0-0.4) % Neut % (Auto) (45-73) % Lymph % (Auto) (20-40) % [place] % (Auto) (2-11) % Eos % (Auto) (0-4) % Baso % (Auto) (0-2) % Lymph # (Auto) (1.2-4.9) X10*3/uL [place] # (Auto) (0.1-1.2) X10*3/uL Eos # (Auto) (0.0-0.4) X10*3/uL Baso # (Auto) (0.0-0.2) X10*3/uL Abs Immat Gran (auto) (0.00-0.03) X10*3/uL Absolute Neuts (auto) (2.0-8.3) x10*3/uL Absolute Nucleated RBC (0.0-0.012) X10*3/uL Nucleated RBC % (auto) (0.0-0.2) /100WBC Smear Tech's Comments PT 12.1 (10.9-12.4) SEC INR 1.1 (0.9-1.1) APTT 32.6 (26.0-36.8) SEC VBG pH (7.32-7.43) VBG pCO2 mmHg VBG pO2 mmHg VBG HCO3 (22-26) mmol/L VBG O2 Saturation % VBG Base Excess mmol/L Sodium (135-145) mmol/L Potassium (3.3-5.1) mmol/L Chloride (96-108) mmol/L Carbon Dioxide (22-29) mmol/L Anion Gap (12-20) BUN (9-16) mg/dL Creatinine (0.5-1.4) mg/dL Estim Creat Clear Calc Estimated GFR Random Glucose (60-115) mg/dL Lactic Acid 1.9 (0.5-2.0) mmol/L Calcium (8.4-10.2) mg/dL Magnesium (1.6-2.6) mg/dL Total Bilirubin (0.0-1.0) mg/dL Direct Bilirubin (0.0-0.5) mg/dL AST (5-31) U/L ALT (0-31) U/L Alkaline Phosphatase (39-117) U/L Troponin I High Sens (<3.5-17.0) ng/L C-Reactive Protein (< or = 0.50) mg/dL B-Natriuretic Peptide 88 (<100) pg/mL Total Protein (6.5-8.0) g/dL Albumin (3.5-5.0) g/dL Lipase (8-78) U/L Procalcitonin ng/mL Influenza Type A (PCR) NEGATIVE (Negative) Influenza Type B (PCR) NEGATIVE (Negative) RSV RNA Qual (PCR) NEGATIVE (Negative) SARS-CoV-2 RNA (RT-PCR) NEGATIVE (Negative) 07/14/25 07/14/25 07/14/25 Range/Units 07:59 08:51 10:45 WBC 15.7 H (4.8-10.8) X10*3/uL RBC 2.97 L (4.20-5.50) X10*6/uL Hgb 10.0 L (12.0-16.0) g/dl Hct 28.3 L D (37.0-47.0) % MCV 95.3 (80.0-98.0) fL MCH 33.7 H (27.0-33.0) pg MCHC 35.3 H (31.0-35.0) g/dl RDW 13.0 (11.0-16.0) % Plt Count 161 D (160-400) X10*3/uL MPV 9.3 L (9.4-12.3) fL Immature Gran % (Auto) 1.0 H (0.0-0.4) % Neut % (Auto) 78.8 H (45-73) % Lymph % (Auto) 4.8 L (20-40) % [place] % (Auto) 14.5 H (2-11) % Eos % (Auto) 0.7 (0-4) % Baso % (Auto) 0.2 (0-2) % Lymph # (Auto) 0.8 L (1.2-4.9) X10*3/uL [place] # (Auto) 2.3 H (0.1-1.2) X10*3/uL Eos # (Auto) 0.1 (0.0-0.4) X10*3/uL Baso # (Auto) 0.0 (0.0-0.2) X10*3/uL Abs Immat Gran (auto) 0.16 H (0.00-0.03) X10*3/uL Absolute Neuts (auto) 12.4 H (2.0-8.3) x10*3/uL Absolute Nucleated RBC 0.000 (0.0-0.012) X10*3/uL Nucleated RBC % (auto) 0.0 (0.0-0.2) /100WBC Smear Tech's Comments VERIFIED PT (10.9-12.4) SEC INR (0.9-1.1) APTT (26.0-36.8) SEC VBG pH 7.49 H (7.32-7.43) VBG pCO2 48 mmHg VBG pO2 93 mmHg VBG HCO3 37 H (22-26) mmol/L VBG O2 Saturation 97.0 % VBG Base Excess 12.2 mmol/L Sodium 138 (135-145) mmol/L Potassium 3.3 (3.3-5.1) mmol/L Chloride 99 (96-108) mmol/L Carbon Dioxide 31 H (22-29) mmol/L Anion Gap 11 L (12-20) BUN 12 (9-16) mg/dL Creatinine 0.67 (0.5-1.4) mg/dL Estim Creat Clear Calc 93.2 Estimated GFR > 60 Random Glucose 119 H (60-115) mg/dL Lactic Acid (0.5-2.0) mmol/L Calcium 8.8 (8.4-10.2) mg/dL Magnesium 1.7 (1.6-2.6) mg/dL Total Bilirubin 0.5 (0.0-1.0) mg/dL Direct Bilirubin 0.2 (0.0-0.5) mg/dL AST 18 (5-31) U/L ALT < 6 (0-31) U/L Alkaline Phosphatase 101 (39-117) U/L Troponin I High Sens 9.7 (<3.5-17.0) ng/L C-Reactive Protein 40.93 H (< or = 0.50) mg/dL B-Natriuretic Peptide (<100) pg/mL Total Protein 6.5 (6.5-8.0) g/dL Albumin 3.7 (3.5-5.0) g/dL Lipase 8 (8-78) U/L Procalcitonin 2.02 ng/mL Influenza Type A (PCR) (Negative) Influenza Type B (PCR) (Negative) RSV RNA Qual (PCR) (Negative) SARS-CoV-2 RNA (RT-PCR) (Negative) Independent Interpretation I performed an independent interpretation of an: EKG, Ultrasound (no DVT) and CT Scan (pneumonia, L effusion) Interpretation: Rate: 91 Rhythm: NSR Mcbrides: normal Normal P waves. Normal LACIE. Normal QRS complex. ST T wave : normal no HUBER, artifact noted qTC: 418 prior studies: no acute ischemia The study has been interpreted contemporaneously by me. . Radiology Impression Discussion of test interpretation with radiology: I have reviewed the radiologist's reading. Independent Historian Clinical information obtained from an independent historian. History obtained from or confirmed by: Spouse External Record Review External record reviewed: Inpatient record and Outpatient record Critical Care Time Critical Care Time Critical Care Time: Yes Total Critical Care Time: 60 Attestation: Time is exclusive of separately billable procedures. Time includes: direct patient care, patient reassessment, coordination of patient care, interpretation of data (laboratory data, pulse oximetry, venous blood gases and CT scans), review of patient's medical records, medical consultation and documentation of patient care. Procedures excluded from critical care time: electrocardiography. I attest to this time spent taking care of the patient Discharge Plan Discharge Clinical Impression: Pleural effusion, Hypoxia Left upper lobe pneumonia Qualifiers: Pneumonia type: due to unspecified organism Qualified Code(s): J18.9 - Pneumonia, unspecified organism Patient Disposition: Admitted As Inpatient
[2025-05-10 08:48] LABS: Resp Syncy Virus RNA Qual PCR NEGATIVE (Negative); SARS COV2 PCR INHOUSE NEGATIVE (Negative)
--- NOTE | 2025-05-10 08:56 | PC.NURSE ---
Pt noted to desat to 88% on 2L O2 via NC, O2 increased to 3L and saturation 90%
[2025-05-10 09:22] LABS: Troponin-I High Sensitivity 9.7 ng/L (<3.5-17.0)
[2025-05-10 09:24] LABS: Alanine Aminotransferase < 6 U/L (0-31); Albumin Level 3.7 g/dL (3.5-5.0); Alkaline Phosphatase 101 U/L (39-117); Anion Gap 11 (12-20); Aspartate Amino Transferase 18 U/L (5-31); Blood Urea Nitrogen 12 mg/dL (9-16); Calcium 8.8 mg/dL (8.4-10.2); Carbon Dioxide 31 mmol/L (22-29); Chloride 99 mmol/L (96-108); Creatinine Clr Calc Pharmacy 93.2; Estimated Glomerular Filt Rate > 60; Lipase 8 U/L (8-78); Magnesium 1.7 mg/dL (1.6-2.6); Potassium 3.3 mmol/L (3.3-5.1); Sodium 138 mmol/L (135-145); Total Protein 6.5 g/dL (6.5-8.0)
[2025-05-10 09:35] LABS: Procalcitonin 2.02 ng/mL
[2025-05-10] MEDS: iohexoL 350 MG/ML 100 ML INFUS..BTL IV (09:45)
[2025-05-10] MEDS: Lactated Ringers 1,000 ML 500 ML IV (09:53)
[2025-05-10 10:50] LABS: Hematocrit 28.3 % (37.0-47.0); Hemoglobin 10.0 g/dl (12.0-16.0); Imm Gran Abs Auto 0.16 X10*3/uL (0.00-0.03); Imm Gran Pct Auto 1.0 % (0.0-0.4); Lymphocytes Absolute Auto 0.8 X10*3/uL (1.2-4.9); MANUAL DIFF FLAG SCAN; Mean Corpuscular HGB Conc 35.3 g/dl (31.0-35.0); Mean Corpuscular Hemoglobin 33.7 pg (27.0-33.0); Mean Corpuscular Volume 95.3 fL (80.0-98.0); NRBC Abs Auto 0.000 X10*3/uL (0.0-0.012); NRBC Pct Auto 0.0 /100WBC (0.0-0.2); Platelet Count 161 X10*3/uL (160-400); Red Blood Count 2.97 X10*6/uL (4.20-5.50); SCAN SMEAR FLAG 1; White Blood Count 15.7 X10*3/uL (4.8-10.8)
[2025-05-10] MEDS: vancomycin/NS 2,000 MG/500 ML PLAST..BAG 250 MG IV (11:03)
[2025-05-10] MEDS: oxyCODONE HCl Immed Release 5 MG TABLET PO (11:13)
--- NOTE | 2025-05-10 12:55 | PM.IMHP ---
History of Present Illness Date of Service: 05/10/25 Chief Complaint: left chest pain 64F PMH rheumatoid arthritis on Plaquenil, chronic bronchitis, history of provoked pulmonary embolism no longer on anticoagulation, peripheral vascular disease, strep pyogenes bacteremia, chronic right thigh mass, diabetes - resolved, last A1c 5.1, hypothyroid presented with 3 days of cough and shortness of breath. Patient was feeling well until 3 days prior to presentation, started to have sharp chest pain under left breast, then developed productive cough with yellow sputum, shortness of breath, denies fever or chills. Symptoms worsened so she came to the ED. In ED noted to be hypoxic to 85% on room air, CT chest with no PE, left upper lobe pneumonia with moderate left pleural effusion likely loculated. Review of Systems Review of Systems: Yes all other systems are reviewed and are negative [facility] Medical History Mass of right thigh Diabetes History of pulmonary embolism Nicotine dependence, cigarettes, uncomplicated Overactive bladder Thyroid disease Elevated cholesterol Spinal stenosis Anxiety Depression HTN (hypertension) Constipation GERD (gastroesophageal reflux disease) Long-term use of hydroxychloroquine Alcohol abuse Chronic bronchitis Seronegative rheumatoid arthritis Pilonidal cyst Neuropathy Carpal tunnel syndrome Rheumatoid arthritis Osteomyelitis Osteoarthritis Pleurisy Family History Mother CHF (congestive heart failure) Stroke Uterine cancer Father CHF (congestive heart failure) Sister Diabetes Brother Diabetes Pulmonary embolism Other Mental health disorder Substance use disorder Surgical History History of thoracic spinal fusion Hx of cervical spine surgery History of elbow surgery H/O colonoscopy History of total right knee replacement (TKR) H/O hernia repair History of surgery on arm History of left knee replacement (~2017) Previous back surgery (~2016) Social History Household Members: None Housing: Apartment Are you a primary acute care occupational therapist to a significant other at home: No Unable to assess alcohol history related to: Unable to respond Alcohol intake: current Alcohol intake frequency: 3 or more drinks per day Alcohol type: hard liquor Patient Tobacco Use Status: Current everyday Tobacco user Tobacco use type: Cigarette Cigarette Packs Per Day: 1.5 Cigarettes Per Day: 30.0 Years Smoked: 40 Smoked in Last 30 Days: Yes e-Cigarette/Vaping Use: Never Used Second Hand Smoke Exposure: Yes Use of substances other than those prescribed or required for medical reasons: Yes Substance Use Type: Marijuana Substance Use Frequency: Chronic Longstanding Advance Directives: Yes Advance Directives Information Provided: No Advance Directives on File: No Do you have a plan to hurt others: No Plan Patient : No service: No Current occupational status: unemployed Cognitive needs: Yes (walker, cane) Hearing needs: No Vision needs: Yes (Reading glasses) Meds Allergies Allergy/AdvReac Type Severity Reaction Status Date / Time lisinopril Allergy Intermediate Swelling Verified 05/10/25 07:28 clavulanic acid (From Allergy Mild RASH Verified 05/10/25 07:28 Augmentin) aripiprazole (From ABILIFY) AdvReac Intermediate EDEMA Verified 05/10/25 07:28 duloxetine (From CYMBALTA) AdvReac Intermediate WT Verified 05/10/25 07:28 GAIN/EDEMA Active Medications: Current Medications Acetaminophen (Acetaminophen 325 Mg Tablet) 650 mg PO Q6H PRN PRN Reason: Pain, Mild 1-3,fever,headache Calcium Carbonate (Calcium Carbonate 750 Mg Tab.Chew) 750 mg PO Q4H PRN PRN Reason: Heartburn Ceftriaxone Sodium (Ceftriaxone Sodium 1 Gm Vial) 1 gm IVPUSH Q24H EVIN Enoxaparin Sodium (Enoxaparin Sodium 40 Mg/0.4 Ml Syringe) 40 mg SUBCUT Q24H PENDING S[facility] TO [facility] Azithromycin 500 mg/ Sodium (Chloride) 250 mls @ 125 mls/hr IV Q24H PENDING SALE TO [facility] Metronidazole (Flagyl) 500 mg in 100 mls @ 100 mls/hr IV Q8H PENDING SALE TO [facility] Magnesium Hydroxide (Milk Of Magnesia 30 Ml Oral.Susp) 30 ml PO DAILY PRN PRN Reason: Constipation Melatonin (Melatonin 3 Mg Tablet) 6 mg PO BEDTIME PRN PRN Reason: Insomnia Sodium Chloride (0.9 % Sodium Chloride Flush 3 Ml Syringe) 3 ml IVFLUSH QSHIFT PENDING SALE TO [facility] Home Medications ?Medication ?Instructions ?Recorded ?Confirmed ?Last Taken ?Type blood sugar diagnostic (FreeStyle 08/12/20 05/04/25 Unknown History Lite Strips) albuterol sulfate 90 mcg/actuation 1 puff inhalation Q4H 11/08/21 05/04/25 Unknown History aerosol inhaler clotrimazole-betamethasone 1 1 appl topical BID 11/08/21 05/04/25 Unknown History %-0.05 % topical cream cyclobenzaprine 10 mg tablet 10 mg PO TID 01/08/24 05/04/25 Unknown History levothyroxine 88 mcg tablet 88 mcg PO DAILY 01/28/25 05/04/25 Unknown History bupropion HCl 300 mg 24 hr tablet, 300 mg PO DAILY 02/18/25 05/04/25 Unknown History extended release trazodone 50 mg tablet 50 mg PO BEDTIME 02/22/25 05/04/25 Unknown History omeprazole 20 mg capsule,delayed 20 mg PO DAILY@0630 05/10/25 Unknown History release pregabalin 75 mg capsule 75 mg PO TID 05/10/25 Unknown History Physical Exam Vital Signs and Narrative: Vital Signs: Last Vital Signs Temp 97.5 F 05/10/25 08:43 Pulse 81 05/10/25 11:00 Resp 18 05/10/25 10:27 BP 103/52 L 05/10/25 11:00 Pulse Ox 96 05/10/25 11:00 O2 Del Method Nasal Cannula 05/10/25 11:00 O2 Flow Rate 3 05/10/25 11:00 BMI result Body Mass Index 33.2 General: AO X 3, dyspneic, coughing paroxysms, difficulty talking in full sentences Resp: Left-sided rhonchi, right is clear, mild accessory muscles used CVS: S1,S2,RRR GI: soft, non tender, non distended Neuro: motor grossly intact, alert Psych: appropriate affect, appropriate insight Chronic right lower extremity edema Results Labs 05/10/25 10:45 05/10/25 08:51 Labs: Laboratory Results - last 24 hr 05/10/25 05/10/25 05/10/25 07:53 07:54 07:58 MCV MCH MCHC RDW Plt Count MPV Immature Gran % (Auto) Neut % (Auto) Lymph % (Auto) [place] % (Auto) Eos % (Auto) Baso % (Auto) Lymph # (Auto) [place] # (Auto) Eos # (Auto) Baso # (Auto) Abs Immat Gran (auto) Absolute Neuts (auto) Absolute Nucleated RBC Nucleated RBC % (auto) Smear Tech's Comments PT 12.1 INR 1.1 APTT 32.6 VBG pH VBG pCO2 VBG pO2 VBG HCO3 VBG O2 Saturation VBG Base Excess Anion Gap Estim Creat Clear Calc Estimated GFR Random Glucose Lactic Acid 1.9 Calcium Magnesium Total Bilirubin Direct Bilirubin AST ALT Alkaline Phosphatase C-Reactive Protein B-Natriuretic Peptide 88 Total Protein Albumin Lipase Procalcitonin Influenza Type A (PCR) NEGATIVE Influenza Type B (PCR) NEGATIVE RSV RNA Qual (PCR) NEGATIVE SARS-CoV-2 RNA (RT-PCR) NEGATIVE 05/10/25 05/10/25 05/10/25 07:59 08:51 10:45 MCV 95.3 MCH 33.7 H MCHC 35.3 H RDW 13.0 Plt Count 161 D MPV 9.3 L Immature Gran % (Auto) 1.0 H Neut % (Auto) 78.8 H Lymph % (Auto) 4.8 L [place] % (Auto) 14.5 H Eos % (Auto) 0.7 Baso % (Auto) 0.2 Lymph # (Auto) 0.8 L [place] # (Auto) 2.3 H Eos # (Auto) 0.1 Baso # (Auto) 0.0 Abs Immat Gran (auto) 0.16 H Absolute Neuts (auto) 12.4 H Absolute Nucleated RBC 0.000 Nucleated RBC % (auto) 0.0 Smear Tech's Comments VERIFIED PT INR APTT VBG pH 7.49 H VBG pCO2 48 VBG pO2 93 VBG HCO3 37 H VBG O2 Saturation 97.0 VBG Base Excess 12.2 Anion Gap 11 L Estim Creat Clear Calc 93.2 Estimated GFR > 60 Random Glucose 119 H Lactic Acid Calcium 8.8 Magnesium 1.7 Total Bilirubin 0.5 Direct Bilirubin 0.2 AST 18 ALT < 6 Alkaline Phosphatase 101 C-Reactive Protein 40.93 H B-Natriuretic Peptide Total Protein 6.5 Albumin 3.7 Lipase 8 Procalcitonin 2.02 Influenza Type A (PCR) Influenza Type B (PCR) RSV RNA Qual (PCR) SARS-CoV-2 RNA (RT-PCR) Imaging Radiologist's Impressions: Impressions Venous Duplex 05/10/25 08:21 IMPRESSION: 1. No evidence of acute DVT in the right lower extremity. 2. 4.0 x 3.7 x 2.0 cm cyst of the proximal right thigh. Electronically signed by: Giovanni Mauricio MD 05/10/2025 08:56 AM EDT RP Chest CTA 05/10/25 09:33 IMPRESSION: 1. No evidence of pulmonary emboli. 2. Left upper lobe pneumonia. Moderate left pleural effusion, likely loculated. 3. Subtotal atelectasis of the left lower lobe. Electronically signed by: Giovanni Mauricio MD 05/10/2025 10:29 AM EDT RP Assessment and Plan (1) Seronegative rheumatoid arthritis: Status: Acute Plan 64F PMH rheumatoid arthritis on Plaquenil, chronic bronchitis, history of provoked pulmonary embolism no longer on anticoagulation, peripheral vascular disease, strep pyogenes bacteremia, chronic right thigh mass, diabetes - resolved, last A1c 5.1, hypothyroid presented with 3 days of cough and shortness of breath Sepsis and acute hypoxic respiratory failure secondary to left-sided pneumonia with loculated effusion Concern for anaerobes, g positives, g negatives, atypical Ceftriaxone, azithromycin, Flagyl Plan for chest tube, pulmonary eval Follow up cultures Wean O2 as tolerated Rheumatoid arthritis Continue Plaquenil and sulfasalazine History of pulmonary embolism Was considered provoked, not on anticoagulation History of diabetes Last A1c 5.1 Hypothyroid Levothyroxine DVT prophylaxis-Lovenox Full Code Quality Stroke Does the patient have a stroke diagnosis?: No VTE Prior VTE?: Yes VTE Risk Level:: Medical - moderate - high VTE Device Contraindication: Treatment Not Indicated VTE Drug Contraindication: N/A - Med Ordered
[2025-05-10] MEDS: metroNIDAZOLE/NS 500 MG/100 ML PIGGYBACK 100 MG IV ×2 (13:45→20:45)
[2025-05-10 14:48] LABS: Appearance Urine Clear; Glucose Urine UA Negative (Negative); PH 6.5 (5.0-9.0); Specific Gravity - Urine >= 1.030 (1.005-1.025); UMIC TRIGGER UACC YES
--- NOTE | 2025-05-10 14:56 | PHA.MEDREC ---
Addendum entered by Alicja Freire RPh 05/10/25 15:29: REVIEWED BY [facility]. WAS ABLE TO CONFIRM CHANGE OF DOSE FOR PREGABALIN USING PCP NOTES FROM 05/04/25. Original Note: Pharmacy Consult ? Medication Reconciliation Pharmacy has completed the medication reconciliation. Spoke with pt and she confirmed her medications. Pt confirmed she still takes Levothyroxine even tho claims show not so recent fills; I called pt pharmacy and they confirmed the Levothyroxine was last picked up 01/11/2025 for 90 days. Pt confirmed she is taking Pregabalin 75mg tabs 1 BID and 2 (150mg) at bedtime; pt states her Dr just changed the directions from 75mg TID to 75mg BID and 150mg (2 tabs) at bedtime last Saturday. Pt states she still has Trazodone 50mg tabs and now cuts them in half for 25mg tabs as needed at bedtime now.
[2025-05-10] MEDS: Albuterol Sulfate 90 MCG 8 GM INHALER 1 PUFF INHALE (16:09)
--- NOTE | 2025-05-10 16:28 | PM.CNPUL ---
History of Present Illness History of Present Illness Consult date: 05/10/25 Chief complaint: Penumonia with loculated pleural effusion Narrative: 64-year-old lady active 40 pack-year smoker, followed by Dr. Epstein for COPD, also with underlying history of rheumatoid arthritis on Plaquenil, prior provoked pulmonary embolism currently not on anticoagulation, peripheral vascular disease, hypothyroidism admitted on 05/10/2025 with progressive dyspnea of several days in left-sided chest pain. On ER evaluation patient hypoxic requiring supplemental oxygen to maintain normal oximetry. Her CT chest demonstrated loculated left-sided pleural effusion with associated infiltrate. Patient has been started on empiric antibiotics and admitted to telemetry avery. Review of Systems Cardiovascular: Cardiovascular: Reports chest pain (Worsening with inspiration), Reports dyspnea, Denies orthopnea and Denies paroxysmal nocturnal dyspnea Respiratory: Respiratory: Reports cough, Reports excessive phlegm production, Reports dyspnea and Denies wheezing Allergic/Immunologic: Allergic/Immunologic: Denies wheezing PMFSH Past Medical History Medical History Mass of right thigh Diabetes History of pulmonary embolism Nicotine dependence, cigarettes, uncomplicated Overactive bladder Thyroid disease Elevated cholesterol Spinal stenosis Anxiety Depression HTN (hypertension) Constipation GERD (gastroesophageal reflux disease) Long-term use of hydroxychloroquine Alcohol abuse Chronic bronchitis Seronegative rheumatoid arthritis Pilonidal cyst Neuropathy Carpal tunnel syndrome Rheumatoid arthritis Osteomyelitis Osteoarthritis Pleurisy Family History Family History Mother CHF (congestive heart failure) Stroke Uterine cancer Father CHF (congestive heart failure) Sister Diabetes Brother Diabetes Pulmonary embolism Other Mental health disorder Substance use disorder Surgical History Surgical History History of thoracic spinal fusion Hx of cervical spine surgery History of elbow surgery H/O colonoscopy History of total right knee replacement (TKR) H/O hernia repair History of surgery on arm History of left knee replacement (~2017) Previous back surgery (~2016) Social History Social History Household Members: None Housing: Apartment Are you a primary career technology teacher to a significant other at home: No Unable to assess alcohol history related to: Unable to respond Alcohol intake: current Alcohol intake frequency: 3 or more drinks per day Alcohol type: hard liquor Patient Tobacco Use Status: Current everyday Tobacco user Tobacco use type: Cigarette Cigarette Packs Per Day: 1.5 Cigarettes Per Day: 30.0 Years Smoked: 40 Smoked in Last 30 Days: Yes e-Cigarette/Vaping Use: Never Used Second Hand Smoke Exposure: Yes Use of substances other than those prescribed or required for medical reasons: Yes Substance Use Type: Marijuana Substance Use Frequency: Chronic Longstanding Advance Directives: Yes Advance Directives Information Provided: No Advance Directives on File: No Do you have a plan to hurt others: No Plan Patient : No service: No Current occupational status: unemployed Cognitive needs: Yes (walker, cane) Hearing needs: No Vision needs: Yes (Reading glasses) Meds Allergies Allergy/AdvReac Type Severity Reaction Status Date / Time lisinopril Allergy Intermediate Swelling Verified 05/10/25 07:28 clavulanic acid (From Allergy Mild RASH Verified 05/10/25 07:28 Augmentin) aripiprazole (From ABILIFY) AdvReac Intermediate EDEMA Verified 05/10/25 07:28 duloxetine (From CYMBALTA) AdvReac Intermediate WT Verified 05/10/25 07:28 GAIN/EDEMA Active Medications: Current Medications Acetaminophen (Acetaminophen 325 Mg Tablet) 650 mg PO Q6H PRN PRN Reason: Pain, Mild 1-3,fever,headache Albuterol Sulfate (Albuterol Sulfate 90 Mcg 8 Gm Inhaler) 1 puff INHALE Q4H [facility] Last Admin: 05/10/25 16:09 Dose: 1 puff Atorvastatin Calcium (Atorvastatin Calcium 10 Mg Tablet) 10 mg PO BEDTIME EVIN Baclofen (Baclofen 10 Mg Tablet) 10 mg PO TID PRN PRN Reason: Muscle Spasm Bupropion HCl (Bupropion Hcl Xl 300 Mg Tab.Er.24h) 300 mg PO DAILY EVIN Calcium Carbonate (Calcium Carbonate 750 Mg Tab.Chew) 750 mg PO Q4H PRN PRN Reason: Heartburn Ceftriaxone Sodium (Ceftriaxone Sodium 1 Gm Vial) 1 gm IVPUSH Q24H EVIN Docusate Sodium (Docusate Sodium 100 Mg Capsule) 100 mg PO BID EVIN Enoxaparin Sodium (Enoxaparin Sodium 40 Mg/0.4 Ml Syringe) 40 mg SUBCUT Q24H EVIN Furosemide (Furosemide 40 Mg Tablet) 40 mg PO DAILY EVIN; Protocol Hydromorphone HCl (Hydromorphone Hcl 0.5 Mg/0.5 Ml Syringe) 0.5 mg IVPUSH Q3H PRN; Protocol PRN Reason: Pain, Severe (Pain Scale 7-10) Last Admin: 05/10/25 13:46 Dose: 0.5 mg Hydroxychloroquine Sulfate (Hydroxychloroquine Sulfate 200 Mg Tablet) 200 mg PO BID [facility] Azithromycin 500 mg/ Sodium (Chloride) 250 mls @ 125 mls/hr IV Q24H [facility] Metronidazole (Flagyl) 500 mg in 100 mls @ 100 mls/hr IV Q8H EVIN Last Infusion: 05/10/25 16:15 Dose: Infused Levothyroxine Sodium (Levothyroxine Sodium 88 Mcg Tablet) 88 mcg PO DAILY@0600 EVIN Magnesium Hydroxide (Milk Of Magnesia 30 Ml Oral.Susp) 30 ml PO DAILY PRN PRN Reason: Constipation Magnesium Oxide (Magnesium Oxide 400 Mg Tablet) 400 mg PO BEDTIME EVIN Melatonin (Melatonin 3 Mg Tablet) 6 mg PO BEDTIME PRN PRN Reason: Insomnia Multivitamins/Vitamin C (Multivitamin Tablet) 1 tab PO DAILY [facility] Non-Formulary Medication (Oxycodone [Oxycontin]) 15 mg PO BID [facility] Omeprazole (Omeprazole 20 Mg Capsule.Dr) 20 mg PO DAILY@0630 [facility] Oxybutynin Chloride (Oxybutynin Chloride Er 5 Mg Tab.Er.24) 10 mg PO DAILY [facility] Oxycodone HCl (Oxycodone Hcl Immed Release 5 Mg Tablet) 10 mg PO TID PRN PRN Reason: severe pain Pregabalin (Pregabalin 75 Mg Capsule) 75 mg PO BID@0800,1200 [facility] Pregabalin (Pregabalin 150 Mg Capsule) 150 mg PO BEDTIME [facility] Sodium Chloride (0.9 % Sodium Chloride Flush 3 Ml Syringe) 3 ml IVFLUSH QSHIFT [facility] Sulfasalazine (Sulfasalazine 500 Mg Tablet) 1,000 mg PO BID [facility] Trazodone HCl (Trazodone Hcl 50 Mg Tablet) 50 mg PO BEDTIME [facility] Venlafaxine HCl (Venlafaxine Hcl Er 150 Mg Cap.Er.24h) 150 mg PO DAILY [facility] Vitamin D (Cholecalciferol (Vitamin D3) 25 Mcg Tablet) 25 mcg PO DAILY [facility] Home Medications ?Medication ?Instructions ?Recorded ?Confirmed ?Last Taken ?Type blood sugar diagnostic (FreeStyle 08/12/20 05/04/25 Unknown History Lite Strips) albuterol sulfate 90 mcg/actuation 1 puff inhalation Q4H 11/08/21 05/10/25 Unknown History aerosol inhaler levothyroxine 88 mcg tablet 88 mcg PO DAILY@0600 01/28/25 05/10/25 05/09/25 History bupropion HCl 300 mg 24 hr tablet, 300 mg PO DAILY 02/18/25 05/10/25 05/09/25 History extended release trazodone 50 mg tablet 50 mg PO BEDTIME 02/22/25 05/10/25 05/09/25 History acetaminophen 500 mg tablet 1,000 mg PO TID PRN Pain 05/10/25 05/10/25 Unknown History cholecalciferol (vitamin D3) 25 25 mcg PO DAILY 05/10/25 05/10/25 05/09/25 History mcg (1,000 unit) tablet (Vitamin D3) magnesium oxide 400 mg (241.3 mg 400 mg PO BEDTIME 05/10/25 05/10/25 05/09/25 History magnesium) tablet multivitamin 1 tab PO DAILY 05/10/25 05/10/25 05/09/25 History omeprazole 20 mg capsule,delayed 20 mg PO DAILY@0630 05/10/25 05/10/25 05/09/25 History release pregabalin 75 mg capsule 75 mg PO BID@0800,1200 05/10/25 05/10/25 05/09/25 History Physical Exam Vital Signs: Vital Signs: Last Vital Signs Temp 99.1 F 05/10/25 16:24 Pulse 91 05/10/25 16:24 Resp 22 H 05/10/25 16:24 BP 95/54 L 05/10/25 16:24 Pulse Ox 94 05/10/25 16:24 O2 Del Method Nasal Cannula 05/10/25 16:24 O2 Flow Rate 4 05/10/25 16:24 BMI result Body Mass Index 33.2 Const: General: no acute distress, alert and awake Eyes: Sclerae: sclerae normal EOM: EOMs intact bilaterally Neck: Neck: Yes no lymphadenopathy, Yes trachea midline and Yes supple Resp: Effort & Inspection: normal respiratory effort and no respiratory distress Auscultation: crackles (Bilateral [id number]) Cardio: Rate: regular rate Rhythm: regular rhythm Heart sounds: no gallops, no murmurs and no rubs GI: Palpation (GI): Soft to palpation and Other GI palpation findings present ( Nontender) Auscultation: normal bowel sounds Extrem: General: Yes no pedal edema, No clubbing and No cyanosis Results Laboratory Findings 05/10/25 10:45 05/10/25 08:51 ABG, PT/INR, D-dimer: PT/INR, D-dimer PT 12.1 SEC (10.9-12.4) 05/10/25 07:54 INR 1.1 (0.9-1.1) 05/10/25 07:54 Abnormal lab findings: Abnormal Labs 05/10/25 05/10/25 05/10/25 07:59 08:51 10:45 WBC 15.7 H RBC 2.97 L Hgb 10.0 L Hct 28.3 L D MCH 33.7 H MCHC 35.3 H MPV 9.3 L Immature Gran % (Auto) 1.0 H Neut % (Auto) 78.8 H Lymph % (Auto) 4.8 L [place] % (Auto) 14.5 H Lymph # (Auto) 0.8 L [place] # (Auto) 2.3 H Abs Immat Gran (auto) 0.16 H Absolute Neuts (auto) 12.4 H VBG pH 7.49 H VBG HCO3 37 H Carbon Dioxide 31 H Anion Gap 11 L Random Glucose 119 H C-Reactive Protein 40.93 H Ur Specific [place] Ur Leukocyte Esterase 05/10/25 14:39 WBC RBC Hgb Hct MCH MCHC MPV Immature Gran % (Auto) Neut % (Auto) Lymph % (Auto) [place] % (Auto) Lymph # (Auto) [place] # (Auto) Abs Immat Gran (auto) Absolute Neuts (auto) VBG pH VBG HCO3 Carbon Dioxide Anion Gap Random Glucose C-Reactive Protein Ur Specific [place] >= 1.030 H Ur Leukocyte Esterase Trace H Assessment and Plan (1) Pleural effusion: Status: Acute (2) Acute respiratory failure with hypoxia: Status: Acute (3) Loculated pleural effusion: Status: Acute Plan Impression: 64-year-old lady with underlying COPD and rheumatoid arthritis admitted with dyspnea and hypoxia secondary to left-sided pneumonia with loculated pleural effusion. Recommendations: Agree with empiric antibiotics and left-sided chest tube placement for chemical decortication. If fails chemical decortication, may require transfer for thoracic surgery evaluation for surgical decortication. Procedures Date of Service Date of Service: 05/10/25
[2025-05-10 17:04] LABS: MRSA Nasal PCR NEGATIVE (Negative); SA Nasal PCR POSITIVE (Negative)
--- NOTE | 2025-05-10 17:36 | PC.NURSE ---
Pharmacy contacted this RN regarding pt home dose oxycontin, per pharmacy pt.'s home formulation is not carried and will need to be brought in by family. Pateint agreed to have someone bring in her home medication.
--- NOTE | 2025-05-10 18:13 | PC.NURSE ---
PATIENT REQUESTED TYLENOL FOR PAIN, MEDICATED PER MAR
[2025-05-10] MEDS: 0.9 % Sodium Chloride Flush 3 ML SYRINGE IVFLUSH (20:45)
[2025-05-10] MEDS: oxyCODONE HCl Immed Release 5 MG TABLET 10 MG PO (22:02)
[2025-05-11] VITALS (29 sets, daily range): BP systolic 79–108; BP diastolic 32–67; PULSE 64–98; RESP 15–25; TEMP 36–37.4; O2SAT 91–96
--- NOTE | 2025-05-11 03:21 | PC.NURSE ---
0225 pt c/o 08/06 left pleuratic pain.pt medicated with dilaudid 0.5mg IV with no relief. notified and dilaudid 1mg IV x1 ordered and given at 0309.
[2025-05-11] MEDS: metroNIDAZOLE/NS 500 MG/100 ML PIGGYBACK 100 MG IV ×3 (04:47→20:41)
[2025-05-11] MEDS: oxyCODONE HCl Immed Release 5 MG TABLET 10 MG PO ×2 (06:33→21:34)
[2025-05-11 06:59] LABS: Hematocrit 32.6 % (37.0-47.0); Hemoglobin 11.2 g/dl (12.0-16.0); Mean Corpuscular HGB Conc 34.4 g/dl (31.0-35.0); Mean Corpuscular Hemoglobin 33.7 pg (27.0-33.0); Mean Corpuscular Volume 98.2 fL (80.0-98.0); NRBC Abs Auto 0.000 X10*3/uL (0.0-0.012); NRBC Pct Auto 0.0 /100WBC (0.0-0.2); Platelet Count 205 X10*3/uL (160-400); Red Blood Count 3.32 X10*6/uL (4.20-5.50); White Blood Count 18.5 X10*3/uL (4.8-10.8)
[2025-05-11 07:42] LABS: Anion Gap 16 (12-20); Blood Urea Nitrogen 10 mg/dL (9-16); Calcium 8.5 mg/dL (8.4-10.2); Carbon Dioxide 30 mmol/L (22-29); Chloride 98 mmol/L (96-108); Creatinine Clr Calc Pharmacy 97.4; Estimated Glomerular Filt Rate > 60; Magnesium 1.8 mg/dL (1.6-2.6); Potassium 3.2 mmol/L (3.3-5.1); Sodium 141 mmol/L (135-145)
[2025-05-11] MEDS: Albuterol Sulfate 90 MCG 8 GM INHALER 1 PUFF INHALE ×3 (07:50→20:04)
[2025-05-11] MEDS: Venlafaxine HCl ER 150 MG CAP.ER.24H PO (08:26)
[2025-05-11] MEDS: Potassium Chloride ER 20 MEQ TAB.ER.PRT 40 MEQ PO (08:27)
[2025-05-11] MEDS: buPROPion HCl XL 300 MG TAB.ER.24H PO (08:27)
--- NOTE | 2025-05-11 08:52 | P.PNIM_ITS ---
Subjective Subjective Date of Service: 05/11/25 Interval History: chest pain Physical Exam 2 Vital Signs: Vital Signs: Last Vital Signs Temp 97.6 F 05/11/25 07:02 Pulse 96 05/11/25 07:50 Resp 18 05/11/25 07:50 BP 108/52 L 05/11/25 07:02 Pulse Ox 92 05/11/25 07:02 O2 Del Method Nasal Cannula 05/11/25 07:02 O2 Flow Rate 4 05/11/25 07:02 BMI result Body Mass Index 34.0 General: AO X 3, no acute distress Resp: rhonchi left side, no accessory muscles used CVS: S1,S2,RRR GI: soft, non tender, non distended Neuro: motor grossly intact, alert Psych: appropriate affect, appropriate insight Objective Data Active Medications Acetaminophen (Acetaminophen 325 Mg Tablet) 650 mg PO Q6H PRN PRN Reason: Pain, Mild 1-3,fever,headache Last Admin: 05/10/25 18:08 Dose: 650 mg Documented By: SABA Albuterol Sulfate (Albuterol Sulfate 90 Mcg 8 Gm Inhaler) 1 puff INHALE RQ4H WHILE AWAKE [facility] Last Admin: 05/11/25 07:50 Dose: 1 puff Documented By: NATALIE Atorvastatin Calcium (Atorvastatin Calcium 10 Mg Tablet) 10 mg PO BEDTIME [facility] Last Admin: 05/10/25 20:45 Dose: 10 mg Documented By: YOMI Baclofen (Baclofen 10 Mg Tablet) 10 mg PO TID PRN PRN Reason: Muscle Spasm Bupropion HCl (Bupropion Hcl Xl 300 Mg Tab.Er.24h) 300 mg PO DAILY [facility] Last Admin: 05/11/25 08:27 Dose: 300 mg Documented By: JAYDON Calcium Carbonate (Calcium Carbonate 750 Mg Tab.Chew) 750 mg PO Q4H PRN PRN Reason: Heartburn Ceftriaxone Sodium (Ceftriaxone Sodium 1 Gm Vial) 1 gm IVPUSH Q24H [facility] Last Admin: 05/11/25 08:26 Dose: 1 gm Documented By: JAYDON Docusate Sodium (Docusate Sodium 100 Mg Capsule) 100 mg PO BID [facility] Last Admin: 05/11/25 08:27 Dose: 100 mg Documented By: JAYDON Enoxaparin Sodium (Enoxaparin Sodium 40 Mg/0.4 Ml Syringe) 40 mg SUBCUT Q24H [facility] Furosemide (Furosemide 40 Mg Tablet) 40 mg PO DAILY [facility]; Protocol Last Admin: 05/11/25 08:42 Dose: Not Given Documented By: JAYDON Non-Admin Reason: Physician Held Med Hydromorphone HCl (Hydromorphone Hcl 1 Mg/Ml Syringe) 1 mg IVPUSH Q3H PRN; Protocol PRN Reason: Pain, Severe (Pain Scale 7-10) Hydroxychloroquine Sulfate (Hydroxychloroquine Sulfate 200 Mg Tablet) 200 mg PO BID [facility] Last Admin: 05/11/25 08:26 Dose: 200 mg Documented By: JAYDON Azithromycin 500 mg/ Sodium (Chloride) 250 mls @ 125 mls/hr IV Q24H [facility] Metronidazole (Flagyl) 500 mg in 100 mls @ 100 mls/hr IV Q8H [facility] Last Infusion: 05/11/25 05:47 Dose: Infused Documented By: YOMI Levothyroxine Sodium (Levothyroxine Sodium 88 Mcg Tablet) 88 mcg PO DAILY@0600 [facility] Last Admin: 05/11/25 05:58 Dose: 88 mcg Documented By: YOMI Magnesium Hydroxide (Milk Of Magnesia 30 Ml Oral.Susp) 30 ml PO DAILY PRN PRN Reason: Constipation Magnesium Oxide (Magnesium Oxide 400 Mg Tablet) 400 mg PO BEDTIME [facility] Last Admin: 05/10/25 20:45 Dose: 400 mg Documented By: YOMI Melatonin (Melatonin 3 Mg Tablet) 6 mg PO BEDTIME PRN PRN Reason: Insomnia Multivitamins/Vitamin C (Multivitamin Tablet) 1 tab PO DAILY [facility] Last Admin: 05/11/25 08:26 Dose: 1 tab Documented By: JAYDON Non-Formulary Medication (Oxycodone [Oxycontin]) 15 mg PO BID [facility] Omeprazole (Omeprazole 20 Mg Capsule.Dr) 20 mg PO DAILY@0630 [facility] Last Admin: 05/11/25 05:58 Dose: 20 mg Documented By: YOMI Oxybutynin Chloride (Oxybutynin Chloride Er 5 Mg Tab.Er.24) 10 mg PO DAILY [facility] Oxycodone HCl (Oxycodone Hcl Immed Release 5 Mg Tablet) 10 mg PO TID PRN PRN Reason: severe pain Last Admin: 05/11/25 06:33 Dose: 10 mg Documented By: YOMI Pregabalin (Pregabalin 75 Mg Capsule) 75 mg PO BID@0800,1200 [facility] Last Admin: 05/11/25 08:27 Dose: 75 mg Documented By: JAYDON Pregabalin (Pregabalin 150 Mg Capsule) 150 mg PO BEDTIME [facility] Last Admin: 05/10/25 20:45 Dose: 150 mg Documented By: YOMI Sodium Chloride (0.9 % Sodium Chloride Flush 3 Ml Syringe) 3 ml IVFLUSH QSHIFT [facility] Last Admin: 05/11/25 08:40 Dose: Not Given Documented By: JAYDON Non-Admin Reason: Previously Administered Sulfasalazine (Sulfasalazine 500 Mg Tablet) 1,000 mg PO BID [facility] Last Admin: 05/11/25 08:26 Dose: 1,000 mg Documented By: JAYDON Trazodone HCl (Trazodone Hcl 50 Mg Tablet) 50 mg PO BEDTIME [facility] Last Admin: 05/10/25 20:45 Dose: 50 mg Documented By: YOMI Venlafaxine HCl (Venlafaxine Hcl Er 150 Mg Cap.Er.24h) 150 mg PO DAILY [facility] Last Admin: 05/11/25 08:26 Dose: 150 mg Documented By: JAYDON Vitamin D (Cholecalciferol (Vitamin D3) 25 Mcg Tablet) 25 mcg PO DAILY [facility] Last Admin: 05/11/25 08:26 Dose: 25 mcg Documented By: JAYDON Labs 05/11/25 05:52 05/11/25 05:52 Labs: Laboratory Results - last 24 hr 05/10/25 05/10/25 05/10/25 08:51 10:45 14:39 MCV 95.3 MCH 33.7 H MCHC 35.3 H RDW 13.0 Plt Count 161 D MPV 9.3 L Immature Gran % (Auto) 1.0 H Neut % (Auto) 78.8 H Lymph % (Auto) 4.[address] [place] % (Auto) 14.5 H Eos % (Auto) 0.7 Baso % (Auto) 0.2 Lymph # (Auto) 0.[address] [place] # (Auto) 2.3 H Eos # (Auto) 0.1 Baso # (Auto) 0.0 Abs Immat Gran (auto) 0.16 H Absolute Neuts (auto) 12.4 H Absolute Nucleated RBC 0.000 Nucleated RBC % (auto) 0.0 Smear Tech's Comments VERIFIED Anion Gap 11 L Estim Creat Clear Calc 93.2 Estimated GFR > 60 Random Glucose 119 H Calcium 8.8 Magnesium 1.7 Total Bilirubin 0.5 Direct Bilirubin 0.2 AST 18 ALT < 6 Alkaline Phosphatase 101 C-Reactive Protein 40.93 H Total Protein 6.5 Albumin 3.7 Lipase 8 Procalcitonin 2.02 Urine Color Dark Yellow Urine Appearance Clear Urine pH 6.5 Ur Specific [place] >= 1.030 H Urine Protein Trace Urine Glucose (UA) Negative Urine Ketones Negative Urine Blood Negative Urine Nitrite Negative Ur Leukocyte Esterase Trace H Urine RBC 0-2 Urine WBC 0-5 Ur Squamous Epith Cells 0-2 Urine Bacteria None Seen Hyaline Casts 0-2 Nasal Screen MRSA (PCR) NEGATIVE Nasal S. aureus Screen POSITIVE A Nasal MRSA/S.aureus Interp SEE NOTE 05/11/25 05:52 MCV 98.2 H MCH 33.7 H MCHC 34.4 RDW 13.6 Plt Count 205 D MPV 10.0 Immature Gran % (Auto) Neut % (Auto) Lymph % (Auto) [place] % (Auto) Eos % (Auto) Baso % (Auto) Lymph # (Auto) [place] # (Auto) Eos # (Auto) Baso # (Auto) Abs Immat Gran (auto) Absolute Neuts (auto) Absolute Nucleated RBC 0.000 Nucleated RBC % (auto) 0.0 Smear Tech's Comments Anion Gap 16 Estim Creat Clear Calc 97.4 Estimated GFR > 60 Random Glucose 64 Calcium 8.5 Magnesium 1.8 Total Bilirubin Direct Bilirubin AST ALT Alkaline Phosphatase C-Reactive Protein Total Protein Albumin Lipase Procalcitonin Urine Color Urine Appearance Urine pH Ur Specific [place] Urine Protein Urine Glucose (UA) Urine Ketones Urine Blood Urine Nitrite Ur Leukocyte Esterase Urine RBC Urine WBC Ur Squamous Epith Cells Urine Bacteria Hyaline Casts Nasal Screen MRSA (PCR) Nasal S. aureus Screen Nasal MRSA/S.aureus Interp Assessment and Plan (1) Seronegative rheumatoid arthritis: Status: Acute Plan 64F PMH rheumatoid arthritis on Plaquenil, chronic bronchitis, history of provoked pulmonary embolism no longer on anticoagulation, peripheral vascular disease, strep pyogenes bacteremia, chronic right thigh mass, diabetes - resolved, last A1c 5.1, hypothyroid presented with 3 days of cough and shortness of breath Sepsis and acute hypoxic respiratory failure secondary to left-sided pneumonia with loculated effusion Concern for anaerobes, g positives, g negatives, atypical Ceftriaxone, azithromycin, Flagyl Plan for chest tube, pulmonary eval Follow up cultures Wean O2 as tolerated MRSA swab negative Rheumatoid arthritis Continue Plaquenil and sulfasalazine History of pulmonary embolism Was considered provoked, not on anticoagulation History of diabetes Last A1c 5.1 Hypothyroid Levothyroxine DVT prophylaxis-Lovenox Full Code reason for continued hospitalization:chest tube pedning Quality Stroke Does the patient have a stroke diagnosis?: No VTE Prior VTE?: Yes VTE Risk Level:: Medical - moderate - high VTE Device Contraindication: Treatment Not Indicated VTE Drug Contraindication: N/A - Med Ordered
--- NOTE | 2025-05-11 09:32 | MHC.CM.PN ---
PT LIVES WITH S/O HAD NO PREVIOUS SERVICES HAS OWN RIDE HOME ..DC PLAN HOME NO SERVICES
[2025-05-11] MEDS: Lidocaine HCl 1 % MPF 30 ML VIAL 10 ML SUBCUT (11:54)
[2025-05-11 12:17] LABS: MN% 5.7 %; PMN% 94.3 %; WBC Pleural Fluid 2.816 X10*3/uL
[2025-05-11 12:49] LABS: Lymphocytes Pleural Fluid 2 %; Monocytes Pleural Fluid 9 %; Neutrophils Pleural Fluid 87 %
[2025-05-11 12:50] LABS: Other Cells Plerual Fl 2 %
[2025-05-11 17:35] LABS: BF Shift QC OK YES; Man Diluent Bkgrd OK YES
[2025-05-11] MEDS: 0.9 % Sodium Chloride Flush 3 ML SYRINGE IVFLUSH (20:30)
[2025-05-11] MEDS: oxyBUTYnin chloride ER 5 MG TAB.ER.24 10 MG PO (20:34)
[2025-05-11] MEDS: Alteplase Cath Clear 10 MG, Dornase Alfa 5 MG, Lidocaine HCl 2 % MPF 10 ML in 0.9 % Sod... 12 MG INTRAPLEUR (21:27)
--- NOTE | 2025-05-11 21:38 | P.PCNCC_ITS ---
Procedures Date of Service Date of Service: 05/11/25 Chest Tube Chest Tube 1: Progress: Ms Claudio is a 64 year-old female with left-sided pneumonia with loculated pleural effusion who underwent a successful CT guided insertion of a left sided 10 [place] pigtail pleural drainage catheter earlier today. Hemodynamically stable. Respiratory rate 24. O2 Sat 91% on 3LNC. Left lung sounds diminished throughout, right side clear. Mild accessory muscle use. Patient positioned laterally,right side up. Chest tube clamped, disconnected from the drainage system tubing. Luer-lock syringe connected at stop-cock, chest tube unclamped, intrapleural fibrolytics instilled into chest tube over 2 minutes. Clamp reapplied. Chest tube and drainage system tubing reconnected and secured. Solution left to dwell for 1 hour then clamp removed with return of approximately 100 ml serous fluid in chest tube. The pt tolerated the procedure well with no immediate complications. Oxycodone and dilaudid administered for pain.
[2025-05-12] VITALS (11 sets, daily range): BP systolic 98–136; BP diastolic 58–85; PULSE 68–118; RESP 14–20; TEMP 35.9–36.6; O2SAT 88–95
[2025-05-12] MEDS: Nicotine 14 MG PATCH.TD24 TRANSDERMA (01:11)
--- NOTE | 2025-05-12 01:15 | PC.NURSE ---
Pt requesting nicotine patch. Per pt, smokes 30 cigarettes a day. MD De La O notified at 24:47 via [employer] text. Patch applied.
[2025-05-12] MEDS: metroNIDAZOLE/NS 500 MG/100 ML PIGGYBACK 100 MG IV ×3 (05:32→19:46)
[2025-05-12 05:49] LABS: Hematocrit 33.6 % (37.0-47.0); Hemoglobin 11.5 g/dl (12.0-16.0); Mean Corpuscular HGB Conc 34.2 g/dl (31.0-35.0); Mean Corpuscular Hemoglobin 33.6 pg (27.0-33.0); Mean Corpuscular Volume 98.2 fL (80.0-98.0); NRBC Abs Auto 0.000 X10*3/uL (0.0-0.012); NRBC Pct Auto 0.0 /100WBC (0.0-0.2); Platelet Count 225 X10*3/uL (160-400); Red Blood Count 3.42 X10*6/uL (4.20-5.50); White Blood Count 14.8 X10*3/uL (4.8-10.8)
[2025-05-12 06:07] LABS: Anion Gap 14 (12-20); Blood Urea Nitrogen 14 mg/dL (9-16); Calcium 9.2 mg/dL (8.4-10.2); Carbon Dioxide 31 mmol/L (22-29); Chloride 100 mmol/L (96-108); Creatinine Clr Calc Pharmacy 94.5; Estimated Glomerular Filt Rate > 60; Potassium 4.5 mmol/L (3.3-5.1); Sodium 140 mmol/L (135-145)
[2025-05-12] MEDS: Albuterol Sulfate 90 MCG 8 GM INHALER 1 PUFF INHALE ×3 (08:16→15:16)
[2025-05-12] MEDS: buPROPion HCl XL 300 MG TAB.ER.24H PO (08:45)
[2025-05-12] MEDS: Venlafaxine HCl ER 150 MG CAP.ER.24H PO (08:45)
[2025-05-12] MEDS: 0.9 % Sodium Chloride Flush 3 ML SYRINGE IVFLUSH ×3 (08:47→19:38)
--- NOTE | 2025-05-12 09:20 | P.PNIM_ITS ---
Subjective Subjective Date of Service: 05/12/25 Interval History: chest pain Physical Exam 2 Vital Signs: Vital Signs: Last Vital Signs Temp 98 F 05/12/25 07:08 Pulse 68 05/12/25 08:50 Resp 14 05/12/25 08:41 BP 103/63 05/12/25 08:50 Pulse Ox 92 05/12/25 07:08 O2 Del Method Nasal Cannula 05/12/25 07:08 O2 Flow Rate 2 05/12/25 07:08 BMI result Body Mass Index 34.0 General: AO X 3, no acute distress Resp: rhonchi left side, no accessory muscles used CVS: S1,S2,RRR GI: soft, non tender, non distended Neuro: motor grossly intact, alert Psych: appropriate affect, appropriate insight Objective Data Active Medications Acetaminophen (Acetaminophen 325 Mg Tablet) 650 mg PO Q6H PRN PRN Reason: Pain, Mild 1-3,fever,headache Last Admin: 05/10/25 18:08 Dose: 650 mg Documented By: SABA Albuterol Sulfate (Albuterol Sulfate 90 Mcg 8 Gm Inhaler) 1 puff INHALE RQ4H WHILE AWAKE [facility] Last Admin: 05/12/25 08:16 Dose: 1 puff Documented By: JOHNATHAN Atorvastatin Calcium (Atorvastatin Calcium 10 Mg Tablet) 10 mg PO BEDTIME [facility] Last Admin: 05/11/25 20:35 Dose: 10 mg Documented By: BREE Baclofen (Baclofen 10 Mg Tablet) 10 mg PO TID PRN PRN Reason: Muscle Spasm Last Admin: 05/12/25 08:46 Dose: 10 mg Documented By: BALTA Bupropion HCl (Bupropion Hcl Xl 300 Mg Tab.Er.24h) 300 mg PO DAILY [facility] Last Admin: 05/12/25 08:45 Dose: 300 mg Documented By: BALTA Calcium Carbonate (Calcium Carbonate 750 Mg Tab.Chew) 750 mg PO Q4H PRN PRN Reason: Heartburn Ceftriaxone Sodium (Ceftriaxone Sodium 1 Gm Vial) 1 gm IVPUSH Q24H [facility] Last Admin: 05/12/25 08:46 Dose: 1 gm Documented By: BALTA Docusate Sodium (Docusate Sodium 100 Mg Capsule) 100 mg PO BID [facility] Last Admin: 05/12/25 08:46 Dose: 100 mg Documented By: BALTA Enoxaparin Sodium (Enoxaparin Sodium 40 Mg/0.4 Ml Syringe) 40 mg SUBCUT Q24H [facility] Last Admin: 05/11/25 15:41 Dose: 40 mg Documented By: JAYDON Furosemide (Furosemide 40 Mg Tablet) 40 mg PO DAILY [facility]; Protocol Last Admin: 05/12/25 08:51 Dose: 40 mg Documented By: BALTA Hydromorphone HCl (Hydromorphone Hcl 1 Mg/Ml Syringe) 1 mg IVPUSH Q3H PRN; Protocol PRN Reason: Pain, Severe (Pain Scale 7-10) Last Admin: 05/12/25 08:41 Dose: 1 mg Documented By: BALTA Hydroxychloroquine Sulfate (Hydroxychloroquine Sulfate 200 Mg Tablet) 200 mg PO BID [facility] Last Admin: 05/12/25 08:46 Dose: 200 mg Documented By: BALTA Azithromycin 500 mg/ Sodium (Chloride) 250 mls @ 125 mls/hr IV Q24H [facility] Last Infusion: 05/11/25 13:04 Dose: Infused Documented By: LACEY Metronidazole (Flagyl) 500 mg in 100 mls @ 100 mls/hr IV Q8H [facility] Last Infusion: 05/12/25 07:00 Dose: Infused Documented By: BALTA Alteplase, Recombinant 10 mg/Dornase Chapin 5 mg/ Lidocaine HCl 10 ml/ Sodium Chloride 50 mls @ 0 mls/hr INTRAPLEUR BID [facility] Stop: 05/14/25 09:01 Last Admin: 05/11/25 21:27 Dose: 12 mls/hr Documented By: BREE Comments: Roxane Michaels NP Levothyroxine Sodium (Levothyroxine Sodium 88 Mcg Tablet) 88 mcg PO DAILY@0600 [facility] Last Admin: 05/12/25 05:32 Dose: 88 mcg Documented By: BREE Magnesium Hydroxide (Milk Of Magnesia 30 Ml Oral.Susp) 30 ml PO DAILY PRN PRN Reason: Constipation Magnesium Oxide (Magnesium Oxide 400 Mg Tablet) 400 mg PO BEDTIME [facility] Last Admin: 05/11/25 20:35 Dose: 400 mg Documented By: BREE Melatonin (Melatonin 3 Mg Tablet) 6 mg PO BEDTIME PRN PRN Reason: Insomnia Multivitamins/Vitamin C (Multivitamin Tablet) 1 tab PO DAILY [facility] Last Admin: 05/12/25 08:45 Dose: 1 tab Documented By: BALTA Non-Formulary Medication (Oxycodone [Oxycontin]) 15 mg PO BID [facility] Omeprazole (Omeprazole 20 Mg Capsule.Dr) 20 mg PO DAILY@0630 [facility] Last Admin: 05/12/25 05:32 Dose: 20 mg Documented By: BREE Oxybutynin Chloride (Oxybutynin Chloride Er 5 Mg Tab.Er.24) 10 mg PO BEDTIME [facility] Last Admin: 05/11/25 20:34 Dose: 10 mg Documented By: BREE Oxycodone HCl (Oxycodone Hcl Immed Release 5 Mg Tablet) 10 mg PO TID PRN PRN Reason: severe pain Last Admin: 05/11/25 21:34 Dose: 10 mg Documented By: BREE Pregabalin (Pregabalin 75 Mg Capsule) 75 mg PO BID@0800,1200 [facility] Last Admin: 05/12/25 08:46 Dose: 75 mg Documented By: BALTA Pregabalin (Pregabalin 150 Mg Capsule) 150 mg PO BEDTIME [facility] Last Admin: 05/11/25 20:35 Dose: 150 mg Documented By: BREE Sodium Chloride (0.9 % Sodium Chloride Flush 3 Ml Syringe) 3 ml IVFLUSH QSHIFT [facility] Last Admin: 05/12/25 08:47 Dose: 3 ml Documented By: BALTA Sulfasalazine (Sulfasalazine 500 Mg Tablet) 1,000 mg PO BID [facility] Last Admin: 05/12/25 08:45 Dose: 1,000 mg Documented By: BALTA Trazodone HCl (Trazodone Hcl 50 Mg Tablet) 50 mg PO BEDTIME [facility] Last Admin: 05/11/25 20:35 Dose: 50 mg Documented By: BREE Venlafaxine HCl (Venlafaxine Hcl Er 150 Mg Cap.Er.24h) 150 mg PO DAILY [facility] Last Admin: 05/12/25 08:45 Dose: 150 mg Documented By: BALTA Vitamin D (Cholecalciferol (Vitamin D3) 25 Mcg Tablet) 25 mcg PO DAILY [facility] Last Admin: 05/12/25 08:46 Dose: 25 mcg Documented By: BALTA Labs 05/12/25 05:32 05/12/25 05:32 Labs: Laboratory Results - last 24 hr 05/11/25 05/12/25 11:30 05:32 MCV 98.2 H MCH 33.6 H MCHC 34.2 RDW 13.5 Plt Count 225 MPV 9.4 Absolute Nucleated RBC 0.000 Nucleated RBC % (auto) 0.0 Anion Gap 14 Estim Creat Clear Calc 94.5 Estimated GFR > 60 Random Glucose 116 H Calcium 9.2 D Pleural WBC 2.816 Pleural RBC < 0.002 Pleural Neutrophils 87 Pleural Lymphocytes 2 Pleural Monocytes 9 Pleural Other Cells 2 Microbiology Microbiology Results: Microbiology 05/11/25 11:30 Gram Stain - Final Thoracentesis Fluid 05/10/25 07:58 Blood Culture - Preliminary Blood - Venous No growth after 24 hours. 05/10/25 07:53 Blood Culture - Preliminary Blood - Venous No growth after 24 hours. Assessment and Plan (1) Seronegative rheumatoid arthritis: Status: Acute Plan 64F PMH rheumatoid arthritis on Plaquenil, chronic bronchitis, history of provoked pulmonary embolism no longer on anticoagulation, peripheral vascular disease, strep pyogenes bacteremia, chronic right thigh mass, diabetes - resolved, last A1c 5.1, hypothyroid presented with 3 days of cough and shortness of breath Sepsis and acute hypoxic respiratory failure secondary to left-sided pneumonia with loculated effusion Concern for anaerobes, g positives, g negatives, atypical Ceftriaxone, azithromycin, Flagyl s/p chest tube and fibrolytics, pulmonary following Follow up cultures Wean O2 as tolerated MRSA swab negative Rheumatoid arthritis Continue Plaquenil and sulfasalazine History of pulmonary embolism Was considered provoked, not on anticoagulation History of diabetes Last A1c 5.1 Hypothyroid Levothyroxine DVT prophylaxis-Lovenox Full Code reason for continued hospitalization:chest tube management Quality Stroke Does the patient have a stroke diagnosis?: No VTE Prior VTE?: Yes VTE Risk Level:: Medical - moderate - high VTE Device Contraindication: Treatment Not Indicated VTE Drug Contraindication: N/A - Med Ordered
[2025-05-12] MEDS: oxyCODONE HCl ER 10 MG TAB.ER.12H 20 MG PO ×2 (10:26→19:40)
[2025-05-12] MEDS: diazePAM 10 MG/2 ML CARTRIDGE 5 MG IVPUSH ×2 (10:59→19:47)
--- NOTE | 2025-05-12 11:15 | PC.NURSE ---
11:15 - Patinet got up to commode, unable to void. patient reporting feel uncomfortable and need to void, bladder scan performed. Provider Katia Hernandez, notified of bladder scan amount, straight cath ordered. Refer to flowsheet for output.
[2025-05-12] MEDS: Alteplase Cath Clear 10 MG, Dornase Alfa 5 MG, Lidocaine HCl 2 % MPF 10 ML in 0.9 % Sod... INTRAPLEUR (11:23)
[2025-05-12] MEDS: oxyCODONE HCl Immed Release 5 MG TABLET 10 MG PO ×2 (12:59→21:53)
--- NOTE | 2025-05-12 14:14 | PC.NURSE ---
13:59 - Patient continues to complain of pain and reporting feeling anxious. Patient stating I just feel like somthing is wrong . Patient requiring frequent reassurance. Patient up to chair after voiding in bed. Provider David notified, CXR ordered.
--- NOTE | 2025-05-12 14:36 | PC.NURSE ---
PT asking for pain meds that are to early to give per emar.
--- NOTE | 2025-05-12 17:28 | PC.NURSE ---
Around 11:00 - Provider Dmitriy Garcia spoke to via [employer] for family questions and chest tube discussion. Provider came to bedside and spoke to patient and family. 11:11am - Provider put patient to water seal and order changed. 11:23am - Provider administered medication in chest tube and clamped chest tube, Provider came to bedside and unclamped tube around 13:15, patient tolerated well.
[2025-05-12] MEDS: oxyBUTYnin chloride ER 5 MG TAB.ER.24 10 MG PO (19:39)
--- NOTE | 2025-05-12 19:54 | MHC.PIE ---
p; pt in room yelling for help, when asked, pt demanding for valium for anxiety. note; no valium under prn. pt re assured md to be notified for valium. pt cont to yell, scream and calling rn peritoneal dialysis bells numerous times. i; dr nye notified, new order valium iv now e; will cont to monitor
[2025-05-12] MEDS: Alteplase Cath Clear 10 MG, Dornase Alfa 5 MG, Lidocaine HCl 2 % MPF 10 ML in 0.9 % Sod... 12 MG INTRAPLEUR (21:58)
--- NOTE | 2025-05-12 22:23 | PM.EVENT ---
Documented by User: Roxane Michaels NP 05/13/25 00:03 Event Note Date of Service: 05/12/25 Event Note: Patient found lying in bed nasal cannula in bed sheets. O2 sat 68% on room air. Patient using accessory muscles. Speaking in short sentences. Denied worsening shortness of breath. Patient put back on 4 L nasal cannula. Patient is hemodynamically stable. O2 sat up to 91. Intrapleural fibrolytics instilled without complication. Continuous pulse ox monitoring ordered. Time Spent With Patient Time: Total time managing care of this patient today ____ minutes. Documented by User: Simeon Garcia MD 05/14/25 18:19 Event Note Date of Service: 05/14/25
[2025-05-13] VITALS (20 sets, daily range): BP systolic 102–152; BP diastolic 41–114; PULSE 60–72; RESP 16–26; TEMP 32–36.7; O2SAT 86–96
--- NOTE | 2025-05-13 03:05 | MHC.PIE ---
p; pt noticeably in pain, pt reports pin 08/06. note; dilaudid q3 last given at 0050. i; dr nye notified. ok to give melinda dose e; will cont to monitor
[2025-05-13] MEDS: metroNIDAZOLE/NS 500 MG/100 ML PIGGYBACK 100 MG IV ×3 (05:46→20:06)
--- NOTE | 2025-05-13 06:05 | PC.NURSE ---
pt in bed with urine noted on catch pad. attempted to give hygiene x2 with pt pre medicated for pain with pt refusing care due to pain. note; pt hob was lowered slightly with pt panicking, attempted to get pt out of bed per pt request with pt unable to to site on side of bed. pt o2 now down to 86 % on 5L, pt sob due to pain, respiratory notified, o2 increased to 6L on ramos per respiratory recommendation. dr nye notified. o2 now 88-89 on 6L. will cont to monitor
[2025-05-13 06:31] LABS: Hematocrit 40.0 % (37.0-47.0); Hemoglobin 14.0 g/dl (12.0-16.0); Mean Corpuscular HGB Conc 35.0 g/dl (31.0-35.0); Mean Corpuscular Hemoglobin 32.9 pg (27.0-33.0); Mean Corpuscular Volume 94.1 fL (80.0-98.0); NRBC Abs Auto 0.000 X10*3/uL (0.0-0.012); NRBC Pct Auto 0.0 /100WBC (0.0-0.2); Platelet Count 289 X10*3/uL (160-400); Red Blood Count 4.25 X10*6/uL (4.20-5.50); White Blood Count 23.7 X10*3/uL (4.8-10.8)
[2025-05-13 06:51] LABS: Anion Gap 19 (12-20); Blood Urea Nitrogen 18 mg/dL (9-16); Calcium 9.0 mg/dL (8.4-10.2); Carbon Dioxide 23 mmol/L (22-29); Chloride 99 mmol/L (96-108); Creatinine Clr Calc Pharmacy 68.8; Estimated Glomerular Filt Rate > 60; Potassium 3.7 mmol/L (3.3-5.1); Sodium 137 mmol/L (135-145)
[2025-05-13] MEDS: oxyCODONE HCl Immed Release 5 MG TABLET 10 MG PO (07:22)
[2025-05-13 07:51] LABS: Albumin Pleural Fluid 2.5
[2025-05-13] MEDS: Albuterol Sulfate 90 MCG 8 GM INHALER 1 PUFF INHALE ×2 (08:02→11:39)
[2025-05-13] MEDS: 0.9 % Sodium Chloride Flush 3 ML SYRINGE IVFLUSH ×2 (08:58→16:27)
[2025-05-13] MEDS: Venlafaxine HCl ER 150 MG CAP.ER.24H PO (09:01)
[2025-05-13] MEDS: buPROPion HCl XL 300 MG TAB.ER.24H PO (09:01)
[2025-05-13] MEDS: oxyCODONE HCl ER 10 MG TAB.ER.12H 20 MG PO (09:02)
--- NOTE | 2025-05-13 09:28 | PC.NURSE ---
Pt may come of continues Pulse ox monitoring per Md Hernandez
--- NOTE | 2025-05-13 10:09 | P.PNIM_ITS ---
Subjective Subjective Date of Service: 05/13/25 Interval History: chest pain Physical Exam 2 Vital Signs: Vital Signs: Last Vital Signs Temp 96.9 F 05/13/25 08:00 Pulse 68 05/13/25 08:05 Resp 18 05/13/25 08:50 BP 102/56 L 05/13/25 09:00 Pulse Ox 92 05/13/25 08:00 O2 Del Method Nasal Cannula 05/13/25 08:00 O2 Flow Rate 6.0 05/13/25 08:00 BMI result Body Mass Index 34.0 General: AO X 3, no acute distress Resp: rhonchi left side, no accessory muscles used CVS: S1,S2,RRR GI: soft, non tender, non distended Neuro: motor grossly intact, alert Psych: appropriate affect, appropriate insight Objective Data Active Medications Acetaminophen (Acetaminophen 325 Mg Tablet) 650 mg PO Q6H PRN PRN Reason: Pain, Mild 1-3,fever,headache Last Admin: 05/10/25 18:08 Dose: 650 mg Documented By: SABA Albuterol Sulfate (Albuterol Sulfate 90 Mcg 8 Gm Inhaler) 1 puff INHALE RQ4H WHILE AWAKE [facility] Last Admin: 05/13/25 08:02 Dose: 1 puff Documented By: LUPILLO Atorvastatin Calcium (Atorvastatin Calcium 10 Mg Tablet) 10 mg PO BEDTIME [facility] Last Admin: 05/12/25 19:38 Dose: 10 mg Documented By: LALO Baclofen (Baclofen 10 Mg Tablet) 10 mg PO TID PRN PRN Reason: Muscle Spasm Last Admin: 05/13/25 07:22 Dose: 10 mg Documented By: LALO Bupropion HCl (Bupropion Hcl Xl 300 Mg Tab.Er.24h) 300 mg PO DAILY [facility] Last Admin: 05/13/25 09:01 Dose: 300 mg Documented By: JAYCOB Calcium Carbonate (Calcium Carbonate 750 Mg Tab.Chew) 750 mg PO Q4H PRN PRN Reason: Heartburn Ceftriaxone Sodium (Ceftriaxone Sodium 1 Gm Vial) 1 gm IVPUSH Q24H [facility] Last Admin: 05/13/25 08:54 Dose: 1 gm Documented By: JAYCOB Docusate Sodium (Docusate Sodium 100 Mg Capsule) 100 mg PO BID [facility] Last Admin: 05/13/25 09:01 Dose: 100 mg Documented By: JAYCOB Enoxaparin Sodium (Enoxaparin Sodium 40 Mg/0.4 Ml Syringe) 40 mg SUBCUT Q24H [facility] Last Admin: 05/12/25 15:29 Dose: 40 mg Documented By: BALTA Furosemide (Furosemide 40 Mg Tablet) 40 mg PO DAILY [facility]; Protocol Last Admin: 05/13/25 09:00 Dose: 40 mg Documented By: JAYCOB Hydromorphone HCl (Hydromorphone Hcl 1 Mg/Ml Syringe) 2 mg IVPUSH Q3H PRN; Protocol PRN Reason: Pain, Severe (Pain Scale 7-10) Last Admin: 05/13/25 08:50 Dose: 2 mg Documented By: JAYCOB Hydroxychloroquine Sulfate (Hydroxychloroquine Sulfate 200 Mg Tablet) 200 mg PO BID [facility] Last Admin: 05/13/25 09:01 Dose: 200 mg Documented By: JAYCOB Azithromycin 500 mg/ Sodium (Chloride) 250 mls @ 125 mls/hr IV Q24H [facility] Last Infusion: 05/12/25 13:01 Dose: Infused Documented By: BALTA Metronidazole (Flagyl) 500 mg in 100 mls @ 100 mls/hr IV Q8H [facility] Last Infusion: 05/13/25 07:17 Dose: Infused Documented By: LALO Alteplase, Recombinant 10 mg/Dornase Chapin 5 mg/ Lidocaine HCl 10 ml/ Sodium Chloride 50 mls @ 0 mls/hr INTRAPLEUR BID [facility] Stop: 05/14/25 09:01 Last Admin: 05/12/25 21:58 Dose: 12 mls/hr Documented By: LALO Levothyroxine Sodium (Levothyroxine Sodium 88 Mcg Tablet) 88 mcg PO DAILY@0600 [facility] Last Admin: 05/13/25 07:18 Dose: Not Given Documented By: LALO Non-Admin Reason: Patient Refused Magnesium Hydroxide (Milk Of Magnesia 30 Ml Oral.Susp) 30 ml PO DAILY PRN PRN Reason: Constipation Magnesium Oxide (Magnesium Oxide 400 Mg Tablet) 400 mg PO BEDTIME [facility] Last Admin: 05/12/25 19:39 Dose: 400 mg Documented By: LALO Melatonin (Melatonin 3 Mg Tablet) 6 mg PO BEDTIME PRN PRN Reason: Insomnia Multivitamins/Vitamin C (Multivitamin Tablet) 1 tab PO DAILY [facility] Last Admin: 05/13/25 09:00 Dose: 1 tab Documented By: JAYCOB Omeprazole (Omeprazole 20 Mg Capsule.Dr) 20 mg PO DAILY@0630 [facility] Last Admin: 05/13/25 07:18 Dose: Not Given Documented By: LALO Non-Admin Reason: Patient Refused Oxybutynin Chloride (Oxybutynin Chloride Er 5 Mg Tab.Er.24) 10 mg PO BEDTIME [facility] Last Admin: 05/12/25 19:39 Dose: 10 mg Documented By: LALO Oxycodone HCl (Oxycodone Hcl Immed Release 5 Mg Tablet) 10 mg PO TID PRN PRN Reason: severe pain Last Admin: 05/13/25 07:22 Dose: 10 mg Documented By: LALO Comments: given per pt request Oxycodone HCl (Oxycodone Hcl Er 10 Mg Tab.Er.12h) 20 mg PO BID [facility] Last Admin: 05/13/25 09:02 Dose: 20 mg Documented By: JAYCOB Pregabalin (Pregabalin 75 Mg Capsule) 75 mg PO BID@0800,1200 [facility] Last Admin: 05/13/25 09:00 Dose: 75 mg Documented By: JAYCOB Pregabalin (Pregabalin 150 Mg Capsule) 150 mg PO BEDTIME [facility] Last Admin: 05/12/25 19:38 Dose: 150 mg Documented By: LALO Sodium Chloride (0.9 % Sodium Chloride Flush 3 Ml Syringe) 3 ml IVFLUSH QSHIFT [facility] Last Admin: 05/13/25 08:58 Dose: 3 ml Documented By: JAYCOB Sulfasalazine (Sulfasalazine 500 Mg Tablet) 1,000 mg PO BID [facility] Last Admin: 05/13/25 08:59 Dose: 1,000 mg Documented By: JAYCOB Trazodone HCl (Trazodone Hcl 50 Mg Tablet) 50 mg PO BEDTIME [facility] Last Admin: 05/12/25 19:39 Dose: 50 mg Documented By: LALO Venlafaxine HCl (Venlafaxine Hcl Er 150 Mg Cap.Er.24h) 150 mg PO DAILY [facility] Last Admin: 05/13/25 09:01 Dose: 150 mg Documented By: JAYCOB Vitamin D (Cholecalciferol (Vitamin D3) 25 Mcg Tablet) 25 mcg PO DAILY [facility] Last Admin: 05/13/25 09:01 Dose: 25 mcg Documented By: JAYCOB Labs 05/13/25 06:08 05/13/25 06:08 Labs: Laboratory Results - last 24 hr 05/11/25 05/13/25 11:30 06:08 MCV 94.1 MCH 32.9 MCHC 35.0 RDW 13.2 Plt Count 289 D MPV 9.5 Absolute Nucleated RBC 0.000 Nucleated RBC % (auto) 0.0 Anion Gap 19 Estim Creat Clear Calc 68.8 Estimated GFR > 60 Random Glucose 134 H Calcium 9.0 Pleural pH 7.37 Pleural Total Protein 4.2 Pleural Albumin 2.5 Pleural LDH 1123 Pleural Glucose 5 Pleural Amylase 10 Microbiology Microbiology Results: Microbiology 05/10/25 07:58 Blood Culture - Preliminary Blood - Venous No growth after 48 hours. 05/10/25 07:53 Blood Culture - Preliminary Blood - Venous No growth after 48 hours. 05/11/25 11:30 Gram Stain - Final Thoracentesis Fluid Anaerobic Culture - Preliminary No growth to date. Body Fluid Culture - Preliminary No growth after 1 day Assessment and Plan (1) Seronegative rheumatoid arthritis: Status: Acute Plan 64F PMH rheumatoid arthritis on Plaquenil, chronic bronchitis, history of provoked pulmonary embolism no longer on anticoagulation, peripheral vascular disease, strep pyogenes bacteremia, chronic right thigh mass, diabetes - resolved, last A1c 5.1, hypothyroid presented with 3 days of cough and shortness of breath Sepsis and acute hypoxic respiratory failure secondary to left-sided pneumonia with loculated effusion Concern for anaerobes, g positives, g negatives, atypical Ceftriaxone, azithromycin, Flagyl s/p chest tube and fibrolytics, pulmonary following Follow up cultures - so far negative Wean O2 as tolerated MRSA swab negative Rheumatoid arthritis Continue Plaquenil and sulfasalazine History of pulmonary embolism Was considered provoked, not on anticoagulation History of diabetes Last A1c 5.1 Hypothyroid Levothyroxine DVT prophylaxis-Lovenox Full Code reason for continued hospitalization:chest tube and pain management Quality Stroke Does the patient have a stroke diagnosis?: No VTE Prior VTE?: Yes VTE Risk Level:: Medical - moderate - high VTE Device Contraindication: Treatment Not Indicated VTE Drug Contraindication: N/A - Med Ordered
[2025-05-13] MEDS: Alteplase Cath Clear 10 MG, Dornase Alfa 5 MG, Lidocaine HCl 2 % MPF 10 ML in 0.9 % Sod... 50 MG INTRAPLEUR (12:26)
[2025-05-13 15:53] LABS: ABG HCO3 32 mmol/L (22-26); ABG O2 % Saturation 69.0 %
--- NOTE | 2025-05-13 16:12 | PC.RT ---
Addendum entered by Kaycee Robles RT 05/13/25 16:16: Glass Edger meant to type the following: mixed gas or venous Original Note: RT called to bedside for pt SATs in the low 80's. Upon arrival, RN had pt on 8L oxy mask, SATs still mid 80's. Pt changed to 15L NRB, SATs improved only to 87-88%. RT noted that chest tube canister was full and there was no movement in tubing. RN changed canister and 20 CC output came out after change. ABG drawn however was a mixed gas result. Dr. Garcia at bedside and requested HFNC. Pt placed on HFNC at this time, 50L/100% at this time, SATs improved to 92%. X-Ray taken bedside. Will continue to monitor.
--- NOTE | 2025-05-13 16:33 | PM.EVENT ---
Event Note Date of Service: 05/13/25 Event Note: patient hypoxia worsening, worsening left sided opacity, ?dislodged catheter, saturation 89-91% on max high flow, CT chest pending, will transfer to ICU Time Spent With Patient Time: Total time managing care of this patient today ____ minutes.
[2025-05-13 17:26] LABS: VBG HCO3 27 mmol/L (22-26); VBG O2 % Saturation 95.0 %
[2025-05-13 17:26] LABS: Venous Blood Gas Refer to POC result
--- NOTE | 2025-05-13 17:31 | PC.NURSE ---
RT called sec pt. being hypoxic mid 80s on 8L NC. advised to change to Oximask pt. sats still mid 80s on 8L. MD were notified. RT at bedside. MDs ordered chest xray, ABGs, high flow, CT and transfer to ICU.
--- NOTE | 2025-05-13 18:37 | PC.NURSE ---
report taken from S3 RN. pt transported to CT and MD was informed when CT was completed. Upon arrival to ICU pt c/o upper chest, rib and breast pain. MD was informed.
--- NOTE | 2025-05-13 18:42 | PM.DS ---
DS: Providers Provider Date of Service: 05/13/25 <Jorge Hernandez MD - Last Filed: 05/13/25 18:47> Date of admission: 05/10/25 12:52 <Jorge Hernandez MD - Last Filed: 05/13/25 18:47> Date of discharge: 05/13/25 <Jorge Hernandez MD - Last Filed: 05/13/25 18:47> Primary care physician: Lilo Davis PA-C <Jorge Hernandez MD - Last Filed: 05/13/25 18:47> Admitting clinician: Jorge Heranndez <Roxane Michaels NP - Last Filed: 05/13/25 22:15> Attending physician on admission: Jorge Hernandez <Roxane Michaels NP - Last Filed: 05/13/25 22:15> Consults: 05/10/25 12:53 Consult to Pulmonology Routine Consulting Provider: [facility] Reason for consultation: loculated effusion 05/13/25 18:40 Consult to Wound Care Routine Reason for consultation: stage 1 coccyx, abrasions and scabs to legs. R great toe blister <Jorge Hernandez MD - Last Filed: 05/13/25 18:47> Attending physician on discharge: Simeon Garcia <Roxane Michaels NP - Last Filed: 05/13/25 22:15> Discharging clinician: Roxane Michaels <Roxane Michaels NP - Last Filed: 05/13/25 22:15> DS: Transfer Hospital Acceptance Name of Facility: [facility] <Roxane Michaels NP - Last Filed: 05/13/25 22:15> Accepting Provider: Dr. Nolasco <Roxane Michaels NP - Last Filed: 05/13/25 22:15> DS: Diagnosis Discharge Diagnosis (1) Loculated pleural effusion: Status: Acute <Jorge Hernandez MD - Last Filed: 05/13/25 18:47> (2) Acute respiratory failure with hypoxia: Status: Acute <Jorge Hernandez MD - Last Filed: 05/13/25 18:47> (3) Left upper lobe pneumonia: Status: Acute <Jorge Hernandez MD - Last Filed: 05/13/25 18:47> (4) Chronic bronchitis: Status: Acute <Jorge Hernandez MD - Last Filed: 05/13/25 18:47> DS: Summary Hospital Course Hospital Course: from initial hpi: 64F PMH rheumatoid arthritis on Plaquenil, chronic bronchitis, history of provoked pulmonary embolism no longer on anticoagulation, peripheral vascular disease, strep pyogenes bacteremia, chronic right thigh mass, diabetes - resolved, last A1c 5.1, hypothyroid presented with 3 days of cough and shortness of breath. Patient was feeling well until 3 days prior to presentation, started to have sharp chest pain under left breast, then developed productive cough with yellow sputum, shortness of breath, denies fever or chills. Symptoms worsened so she came to the ED. In ED noted to be hypoxic to 85% on room air, CT chest with no PE, left upper lobe pneumonia with moderate left pleural effusion likely loculated. hospital course: patient was admitted for sepsis and acute hypoxic respiratory failure due to pneumonia with complicated loculated effusion. she was treated with rocephin, azithro, and flagyl. cultures were negative. chest tube was placed with pigtail catheter, labs c/w transudate, no bacteria grown, was given chemical decortication but patient continued to decline and had worsening hypoxia and increased oxygen demand, worsening left sided opacity. patient currently on maxed out high flow. discussion had with [facility], plan for transfer for thoracic surgery eval. for hisotry of RA patinet is on plaquenil and sulfasalazine. for hisotry of provoked PE patient is no longer on anticoagulation, for history of DM, now diet controlled, last a1c 5.1. <Jorge Hernandez MD - Last Filed: 05/13/25 18:47> Time Attestation Discharge Coordination Time (in mins): 33 <Jorge Hernandez MD - Last Filed: 05/13/25 18:47> Quality: Safe Use of Opioids Does Pt have an Active Cancer Diagnosis on the Problem List?: No <Jorge Hernandez MD - Last Filed: 05/13/25 18:47> Quality: Stroke Does the patient have a stroke diagnosis?: No <Jorge Hernandez MD - Last Filed: 05/13/25 18:47> Physical Exam Vital Signs: Vital Signs: Last Vital Signs Temp 97.3 F 05/13/25 15:21 Pulse 72 05/13/25 18:00 Resp 26 H 05/13/25 18:00 BP 110/73 05/13/25 18:00 Pulse Ox 88 L 05/13/25 18:00 O2 Del Method High Flow Nasal C annula 05/13/25 18:00 O2 Flow Rate 50 05/13/25 18:00 FiO2 100 05/13/25 18:00 BMI result Body Mass Index 34.0 <Jorge Hernandez MD - Last Filed: 05/13/25 18:47> General: AO X 3, ill appearing Resp: dimisnhed left side, no accessory muscles used, chest tube in place CVS: S1,S2,RRR GI: soft, non tender, non distended Neuro: motor grossly intact, alert Psych: appropriate affect, appropriate insight <Jorge Hernandez MD - Last Filed: 05/13/25 18:47> DS: Data Data Completed and Pending Completed studies during hospitalization [Text1]: Procedures Detoxification Services for Substance Abuse Treatment (12/01/22) Insertion of Infusion Device into Superior Vena Cava, Percutaneous Approach (12/01/22) Introduction of Vasopressor into Central Vein, Percutaneous Approach (12/01/22) Ultrasonography of Superior Vena Cava, Guidance (12/01/22) <Jorge Hernandez MD - Last Filed: 05/13/25 18:47> Labs on day of discharge: Laboratory Results - last 24 hr 05/11/25 05/13/25 05/13/25 11:30 06:08 15:49 WBC 23.7 H RBC 4.25 D Hgb 14.0 D Hct 40.0 MCV 94.1 MCH 32.9 MCHC 35.0 RDW 13.2 Plt Count 289 D MPV 9.5 Absolute Nucleated RBC 0.000 Nucleated RBC % (auto) 0.0 O2 Saturation 69.0 ABG pH at Pt Temp 7.35 ABG pCO2 at Pt Temp 57 H ABG pO2 at Pt Temp 47 L* ABG HCO3 32 H ABG Base Excess (Actual) 4.8 VBG pH VBG pCO2 VBG pO2 VBG HCO3 VBG O2 Saturation VBG Base Excess Sodium 137 Potassium 3.7 Chloride 99 Carbon Dioxide 23 Anion Gap 19 BUN 18 H Creatinine 0.92 Estim Creat Clear Calc 68.8 Estimated GFR > 60 Random Glucose 134 H Calcium 9.0 Pleural pH 7.37 Pleural Total Protein 4.2 Pleural Albumin 2.5 Pleural LDH 1123 Pleural Glucose 5 Pleural Amylase 10 05/13/25 17:23 WBC RBC Hgb Hct MCV MCH MCHC RDW Plt Count MPV Absolute Nucleated RBC Nucleated RBC % (auto) O2 Saturation ABG pH at Pt Temp ABG pCO2 at Pt Temp ABG pO2 at Pt Temp ABG HCO3 ABG Base Excess (Actual) VBG pH 7.38 VBG pCO2 45 VBG pO2 86 VBG HCO3 27 H VBG O2 Saturation 95.0 VBG Base Excess 1.6 Sodium Potassium Chloride Carbon Dioxide Anion Gap BUN Creatinine Estim Creat Clear Calc Estimated GFR Random Glucose Calcium Pleural pH Pleural Total Protein Pleural Albumin Pleural LDH Pleural Glucose Pleural Amylase Preliminary micro results at discharge 05/11/25 11:30 Anaerobic Culture - Preliminary Thoracentesis Fluid No growth to date. 05/10/25 07:58 Blood Culture - Preliminary Blood - Venous No growth after 48 hours. 05/10/25 07:53 Blood Culture - Preliminary Blood - Venous No growth after 48 hours. <Jorge Hernandez MD - Last Filed: 05/13/25 18:47> Discharge Plan Discharge Anticipated Discharge Date/Time: 05/13/25 16:14 <Jorge Hernandez MD - Last Filed: 05/13/25 18:47> Patient Disposition: [facility] <Jorge Hernandez MD - Last Filed: 05/13/25 18:47> Discharge Diagnosis: loculated effusion, pna <Jorge Hernandez MD - Last Filed: 05/13/25 18:47> loculated effusion, pna <Roxane Michaels NP - Last Filed: 05/13/25 22:15> Referrals: Lilo Davis PA-C [Primary Care Provider, Internal Medicine] - 1 Week <Jorge Hernandez MD - Last Filed: 05/13/25 18:47> Discharge Medications: New azithromycin 500 mg Recon Soln 500 mg IV Q24H Qty: 0 0RF ceftriaxone 1 gram Recon Soln 1 g IVPUSH Q24H Qty: 0 0RF metronidazole in NaCl (iso-os) 500 mg/100 mL Piggyback 500 mg IV Q8H Qty: 0 0RF Continued docusate sodium 100 mg capsule 100 mg PO BID Qty: 90 0RF hydroxychloroquine 200 mg tablet 200 mg PO BID 90 Days Qty: 180 1RF ibuprofen 600 mg tablet 600 mg PO Q8H PRN (Reason: for pain) Qty: 90 0RF sulfasalazine 500 mg tablet 1 g PO BID 90 Days Qty: 360 1RF furosemide 20 mg tablet 40 mg PO DAILY Qty: 90 0RF oxycodone 10 mg tablet 10 mg PO TID 28 Days Qty: 69 0RF Rx Instructions: tapering 74 - 69 oxycodone [OxyContin] 15 mg tablet,oral only,ext.rel.12 hr 15 mg PO BID PRN (Reason: pain) Qty: 42 0RF Rx Instructions: Partial Fill upon patient request - decreasing dose simvastatin 20 mg tablet 20 mg PO BEDTIME Qty: 90 0RF (DME) FreeStyle Lite Strips Strip 1 strip MISCELLANEOUS BID bupropion HCl 300 mg tablet extended release 24 hr 300 mg PO DAILY omeprazole 20 mg capsule,delayed release(DR/EC) 20 mg PO DAILY@0630 pregabalin 75 mg capsule 75 mg PO BID@0800,1200 multivitamin Tablet 1 tab PO DAILY acetaminophen 500 mg Tablet 1,000 mg PO TID PRN (Reason: Pain) cholecalciferol (vitamin D3) [Vitamin D3] 25 mcg (1,000 unit) Tablet 25 mcg PO DAILY magnesium oxide 400 mg (241.3 mg magnesium) tablet 400 mg PO BEDTIME albuterol sulfate 90 mcg/actuation HFA aerosol inhaler 1 puff inhalation Q4H levothyroxine 88 mcg tablet 88 mcg PO DAILY@0600 trazodone 50 mg tablet 50 mg PO BEDTIME (DME) Diabetic shoe with inserts See Rx Instructions .Route .MEDSUPPLY Qty: 1 0RF Rx Instructions: As directed oxybutynin chloride 10 mg tablet extended release 24hr 10 mg PO DAILY Qty: 90 0RF venlafaxine 150 mg capsule,extended release 24hr 150 mg PO DAILY Qty: 90 0RF baclofen 10 mg tablet 10 mg PO TID PRN (Reason: Muscle Spasm) 30 Days Qty: 90 0RF pregabalin 150 mg capsule 150 mg PO BEDTIME Qty: 30 0RF <Jorge Hernandez MD - Last Filed: 05/13/25 18:47> Discharge Orders: Discharge Order (Routine); Ordered 05/13/25 Ordered By: Roxane Michaels <Jorge Hernandez MD - Last Filed: 05/13/25 18:47> Diet: Advance to usual diet <Jorge Hernandez MD - Last Filed: 05/13/25 18:47> Advance to usual diet <Roxane Michaels NP - Last Filed: 05/13/25 22:15> Activity on Discharge: As tolerated <Jorge Hernandez MD - Last Filed: 05/13/25 18:47> As tolerated <Roxane Michaels NP - Last Filed: 05/13/25 22:15> Stand Alone Forms: Patient Portal Discharge page <Jorge Hernandez MD - Last Filed: 05/13/25 18:47> Print Language: Estonian <Jorge Hernandez MD - Last Filed: 05/13/25 18:47> Care Plan Goals: recovery <Jorge Hernandez MD - Last Filed: 05/13/25 18:47> Health Concerns: pneumonia with loculated effusion <Jorge Hernandez MD - Last Filed: 05/13/25 18:47> Plan of Treatment: transfer for thoracic surgery <Jorge Hernandez MD - Last Filed: 05/13/25 18:47> Assessment: see above <Jorge Hernandez MD - Last Filed: 05/13/25 18:47>
--- NOTE | 2025-05-13 21:50 | W.PM.CCHP ---
Procedures Date of Service Date of Service: 05/13/25 Intubation Consent for Procedure: Emergent-no informed consent obtained Time out performed: Yes Sedative: propofol Mg given: 150 Laryngoscope: fiber optic video scope ET tube size: 7.5 ET tube uncuffed: Yes Tube secured depth (cm): 24 Tube secured location: lips Tube placement confirmation: visualized tube passing through cords, no breath sounds over epigastrium and confirmation by capnometry Patient tolerated procedure: well and no complications Intubation complications: none
--- NOTE | 2025-05-13 23:06 | PC.NURSE ---
Addendum entered by Alber Campbell RN 05/13/25 23:39: EMS TRANSFERRED PATIENT TO [facility] AT 23:30 IN STABLE CONDITION ON VENTILATOR Original Note: CARE ASSUMED 7PM..DROWSY TO SOMNOLENT..AWAKENED TO VERBAL STIMULI..STATED I'M IN THE HOSPITAL WHEN QUESTIONED..WEAKLY COTTRELL TO COMMAND..HI-SARBJIT O2 CANNULA FIO2 100% AND 50 L/M FLOW RATE..SAO2 91-92%...LEFT LATERAL CHEST TUBE -20CM (PLACED TO -20CM SUCTION PER SHIFT REPORT PER MD AT 6PM) SUCTION DRAINING SEROSANGUINOUS DRAINAGE...PLEURAVAC CHANGED APPROX 4-5PM PER REPORT....NO AIR LEAK..1000ml DRAINAGE TOTAL AT 10PM...PROVIDER AT BEDSIDE 7:30PM...PER ICU SPIRAL TUBE WINDER TRANSFER TO [facility] WAS PENDING BED AVAILABILITY AND PER METAL INSPECTOR INSTRUCTIONS TO INTUBATE IF FIO2 REQUIREMENTS >60% FIO2...9PM [facility] CALLED WITH AVAILABLE BED ASSIGNMENT..(:30 PM PATIENT INTUBTED BY PROVIDER....PROPOFOL 100MG AND 50MG BOLUSES GIVEN..INTUBATED #7.5 ETT 23CM..AC 18/TV 350/FIO2 100% WEANED TO 80%/PEEP 5..OG-TUBE PLACED...CXR DONE AND REVIEWED BY PROVIDER..LEVOPHED STARTED 0.05 MCG/KG/MIN AND PROPOFOL DRIP 30 MCG/KG/MIN PER PROVIDER..NSR..NO DYSRHYTHMIAS...REPORT CALLED TO [facility]..JONES 5..BED 8 TO [facility] ..EMS PRESENT ON UNIT 23:00 FOR TRANSFER TO [facility]..ACCEPTING MD= DR HINTON...
[2025-05-14 00:12] LABS: ABG Refer to POC result
== END 2025-05-13 23:30 | disposition short-term general hospital (02) | DRG 871 ==
LOC: HO.ED 10:06 → HO.EDOVER 13:16 → HO.S3 19:21 → HO.ICU 05-13 16:51
PROVIDERS: Radiology Diagnostic Radiology; Admitting Provider Internal Medicine; Emergency Provider Emergency Medicine; Visit Provider Internal Medicine Pulmonary Disease
PROC: 0W9B30Z Drainage of Left Pleural Cavity with Drainage Device, Percutaneous Approach (ICD-10-PCS; CPT 32551; principal; 2025-05-11 10:30)
DX: A41.9 Sepsis, unspecified organism (principal); J18.9 Pneumonia, unspecified organism; J96.01 Acute respiratory failure with hypoxia; J91.8 Pleural effusion in other conditions classified elsewhere; E03.9 Hypothyroidism, unspecified; M06.00 Rheumatoid arthritis without rheumatoid factor, unspecified site; F17.210 Nicotine dependence, cigarettes, uncomplicated; Z71.6 Tobacco abuse counseling; Z20.822 Contact with and (suspected) exposure to COVID-19; Z86.39 Personal history of other endocrine, nutritional and metabolic disease; Z86.711 Personal history of pulmonary embolism; Z79.890 Hormone replacement therapy; Z79.899 Other long term (current) drug therapy
CPT/HCPCS: 32557; 36415; 36600; 71045; 71250; 71275; 80048; 80076; 81001; 82042; 82150; 82803; 82945; 83605; 83615; 83690; 83735; 83880; 83986; 84145; 84157; 84484; 85025; 85027; 85610; 85730; 86140; 87040; 87070; 87073; 87205; 87637; 87640; 87641; 89051; 93005; 93971; 94002; 94640; 94799; 99152; 99153; 99285; A7041; C1729; J0131; J0456; J0696; J1171; J1650; J1836; J2003; J2212; J2250; J2270; J2704; J2997; J3010; J3360; J3373; J7120; Q9967

== ENCOUNTER → 2025-05-10 07:47 | Outpatient (BNV) | payer MEDICARE, SELFPAY | PROVIDERS: Admitting Provider Internal Medicine; Emergency Provider Emergency Medicine; Visit Provider Internal Medicine | DX: R06.00 Dyspnea, unspecified (principal) | CPT/HCPCS: 93010 ==

== ENCOUNTER → 2025-05-10 07:47 | Outpatient (BNV) | payer MEDICARE, SELFPAY | PROVIDERS: Emergency Provider Emergency Medicine; Visit Provider Radiology Diagnostic Radiology | DX: J90 Pleural effusion, not elsewhere classified (principal); J98.11 Atelectasis; J18.1 Lobar pneumonia, unspecified organism; M79.604 Pain in right leg; M85.651 Other cyst of bone, right thigh | CPT/HCPCS: 71275; 93971 ==

== ENCOUNTER 2025-05-10 12:52 | Outpatient (BNV) | payer MEDICARE, SELFPAY | END 2025-05-12 14:15 | PROVIDERS: Admitting Provider Internal Medicine; Emergency Provider Emergency Medicine; Visit Provider Radiology Diagnostic Radiology | DX: R07.9 Chest pain, unspecified (principal) | CPT/HCPCS: 71045 ==

== ENCOUNTER 2025-05-10 12:52 | Outpatient (BNV) | payer MEDICARE, SELFPAY | END 2025-05-13 15:50 | PROVIDERS: Admitting Provider Internal Medicine; Emergency Provider Emergency Medicine; Visit Provider Radiology Diagnostic Radiology | DX: J90 Pleural effusion, not elsewhere classified (principal) | CPT/HCPCS: 71045; 71250 ==

== ENCOUNTER 2025-05-10 12:52 | Outpatient (BNV) | payer MEDICARE, SELFPAY | END 2025-05-11 10:43 | PROVIDERS: Admitting Provider Internal Medicine; Emergency Provider Emergency Medicine; Visit Provider Radiology Diagnostic Radiology | DX: J18.9 Pneumonia, unspecified organism (principal) | CPT/HCPCS: 32557 ==

== ENCOUNTER → 2025-05-10 12:52 | Outpatient (BNV) | payer MEDICARE, SELFPAY | PROVIDERS: Admitting Provider Internal Medicine; Emergency Provider Emergency Medicine; Visit Provider Internal Medicine Pulmonary Disease | DX: J90 Pleural effusion, not elsewhere classified (principal); J96.01 Acute respiratory failure with hypoxia | CPT/HCPCS: 99223 ==

== ENCOUNTER → 2025-05-10 12:52 | Outpatient (BNV) | payer MEDICARE, SELFPAY | PROVIDERS: Admitting Provider Internal Medicine; Emergency Provider Emergency Medicine; Visit Provider Nurse Practitioner Family | DX: J18.9 Pneumonia, unspecified organism (principal); J91.8 Pleural effusion in other conditions classified elsewhere | CPT/HCPCS: 32557 ==

== ENCOUNTER → 2025-05-10 12:52 | Outpatient (BNV) | payer MEDICARE, SELFPAY | PROVIDERS: Admitting Provider Internal Medicine; Emergency Provider Emergency Medicine; Visit Provider Internal Medicine | DX: M06.00 Rheumatoid arthritis without rheumatoid factor, unspecified site (principal) | CPT/HCPCS: 99223 ==

== ENCOUNTER → 2025-06-02 23:59 | Outpatient (BNV) | payer MEDICARE, SELFPAY | DX: J18.9 Pneumonia, unspecified organism (principal); J90 Pleural effusion, not elsewhere classified | CPT/HCPCS: G0180 ==

== ENCOUNTER 2025-06-08 12:47 | Outpatient (AMB) | payer MEDICARE, SELFPAY ==
--- OUTSIDE RECORDS SUMMARY | 2024-01-10 06:40 | XMS_ITS ---
Author Organization [facility] Address [address] [place] [phone] Care Team Providers Care Barrel Rib Matting Machine Operator Name Role Phone Anabela CANTRELL, Cayla Primary Care Provider Getachew De Dios Jr [phone] REASON FOR VISIT screening,hx polyps Encounters Encounter Location Date Provider Diagnosis [facility] Outpatient [address] [place] [phone] 01/10/2024 Getachew Toscano Jr Encounter for screening colonoscopy Z12.11 and Personal history of colonic polyps Z86.010 Assessments Encounter Date Diagnosis (ICD Code) Assessment Notes Treatment Notes Treatment Clinical Notes Section Notes 01/10/2024 Encounter for screening colonoscopy (ICD-10 - Z12.11) 01/10/2024 Personal history of colonic polyps (ICD-10 - Z86.010) Plan Of Treatment No Information Progress Notes * BEAR KRAUSE MDOB: (64 yo F)Acc No.[id number]:01/10/2024 COLON WITH MAC Patient: BEAR HAYWARD Provider: Suri Toscano MD :1960 A ge:63 Y S ex:Female Date:01/10/2024 Address:[address] [place], [place] [id number] Pcp:Cayla Peñaloza NP Subjective: * Chief Complaints: * 1 . Screening,hx polyps. * Medical History: Objective: * Vitals: Assessment: * Assessment: 1. E ncounter for screening colonoscopy - Z12.11 (Primary) 2 . P ersonal history of colonic polyps - Z86.010 Plan: * Treatment: * Procedure Codes: 4 5378 DIAGNOSTIC COLONOSCOPY * Preventive Medicine: JACQUELINE Screening: C olonoscopy W as interval between colonoscopies three years or more? Y es, W as last colonoscopy performed three or more years ago? Y es. * * The named appointment provid er may or may not be the originator of this progress note, and it is not deemed complete until electronically signed by the appointment provider. Sign off status: Pending * Provider: Suri Toscano MD Date: 0 01/10/2024 Generated for Rehan sullivan/Wali/Kennysmitting on: 0 06/08/2025 01:30 PM EDT
--- OUTSIDE RECORDS SUMMARY | 2024-06-08 07:15 | XMS_ITS ---
Author Organization [facility] Address [address] [place] [address] Care Team Providers Care Social Media Intern Name Role Phone Lilo Davis Primary Care Provider UnavailAria Borrego [phone] Encounters Encounter Location Date Provider Diagnosis [address] [address] 06/08/2024 Aria Dodd Plan Of Treatment Next Appt Details Provider Name:Aria A Yousif , 07/26/2025 01:00:00 PM, [address] [place] [address], [phone], Progress Notes * Evelyne CLAUDIO MDOB: (64 yo F)Acc No.[id number]:06/08/2024 Progress Note Patient: Evelyne HAYWARD Provider: Leanne Dodd DPM :1960 A ge:63 Y S ex:Female Date:06/08/2024 Address:[address] [place], [place] [address]iazar mcintoshRESERVE, [id number] Pcp:Lilo Davis Subjective: * Chief Complaints: * [...] 06/08/2024 Generated for Rehan sullivan/Wali/Elba on: 0 06/08/2025 01:30 PM EDT
--- NOTE | 2025-06-08 13:01 | MHC.PC.OV ---
Vital Signs 06/08/25 13:05 Weight 189 lb 6.033 oz BP 104/56 L Blood Pressure Location Lt brachial Position Sitting Pulse 50 Pulse Source Pulse Oximeter Pulse Oximetry (%) 94 Intake Visit Reasons: f/u medication Patient Admitting Clerk Required: No Accompanied by: Self / Same As Patient Allergies lisinopril Allergy (Intermediate, Verified 06/08/25 13:02) Swelling aripiprazole (From ABILIFY) Adverse Reaction (Intermediate, Verified 06/08/25 13:02) EDEMA duloxetine (From CYMBALTA) Adverse Reaction (Intermediate, Verified 06/08/25 13:02) WT GAIN/EDEMA Medication List - Last Reconciled 06/08/25 by Lilo Davis PA-C acetaminophen 1,000 mg PO TID PRN albuterol sulfate 90 mcg/actuation 1 puff inhalation Q4H azithromycin 500 mg IV Q24H baclofen 10 mg PO TID PRN 30 days blood sugar diagnostic (FreeStyle Lite Strips) bupropion HCl XL 300 mg PO DAILY ceftriaxone 1 g IVPUSH Q24H cholecalciferol (vitamin D3) (Vitamin D3) 25 mcg PO DAILY [Diabetic shoe with inserts As directed] docusate sodium 100 mg PO BID furosemide 40 mg (2 x 20 mg) PO DAILY hydroxychloroquine 200 mg PO BID 90 days ibuprofen 600 mg PO Q8H PRN levothyroxine 88 mcg PO DAILY@0600 magnesium oxide 400 mg PO BEDTIME metronidazole in NaCl (iso-os) 500 mg/100 mL 500 mg IV Q8H multivitamin 1 tab PO DAILY omeprazole 20 mg PO DAILY@0630 oxybutynin chloride ER 10 mg PO DAILY oxycodone 10 mg PO TID 28 days oxycodone ER (OxyContin) 15 mg PO BID PRN pregabalin 75 mg PO BID@0800,1200 30 days pregabalin 150 mg PO BEDTIME simvastatin 20 mg PO BEDTIME sulfasalazine 1 g (2 x 500 mg) PO BID 90 days NS trazodone 50 mg PO BEDTIME venlafaxine ER 150 mg PO DAILY Tobacco use date assessed: 04/06/25 Dental Screening Dental Screen Date: 06/08/25 Did you have a dental visit in the last 12 months?: No Did you have a dental problem in the last 6 months where you did not have access to dental care?: No Was dental information given to patient?: Patient declined HPI f/u medication HPI Details 64-year-old female with past medical history of peripheral vascular disease, chronic bronchitis, rheumatoid arthritis, post-laminectomy syndrome, nicotine dependence last seen 04/2025 coming in for follow up. We are working on decreasing the chronic pain medication she is on and we did increase the pregabalin at bedtime to better manage her nighttime pain. In review of the notes, patient was seen in [facility] 05/10/2025 for shortness of breath and cough noted to be hypoxic 85% on room air admitted for sepsis with acute hypoxic respiratory failure due to pneumonia with effusion. Patient continued to decline had worsening hypoxia and plan to transfer to [facility] for thoracic surgery. Patient was transferred to [facility] 05/11/2025 where she was evaluated for left pleural effusion and left upper lobe pneumonia. In the MICU she required pressor support with Levophed and chest tube was placed. She was weaned off of pressor support but remained hypotensive and started on midodrine 10 mg t.i.d. and discharge this medication. For pneumonia she was discharged with Augmentin and recommendations for a repeat CT scan with IV contrast in 3 weeks. Chest tube was removed 05/25/2025 and plans to follow up with thoracic surgery in 3 weeks and patient was discharged home 05/26/2025. She has been working with PT/OT and VNA services in the home since discharge from the hospital. She was seen by ID yesterday and has repeat CT scan Saturday with thoracic surgery follow up on Saturday next week. Sleep disturbance is characterized by difficulty maintaining sleep, exacerbated by frequent medical appointments and medication side effects. Diarrhea has been persistent, described as mud and pudding, likely related to antibiotic use. She continue to have worsening chronic pain since discharge from the hospital and has been trying to reach [facility] pain management. She is also requesting an increase in her oxycodone. [facility] Medical History Mass of right thigh Diabetes History of pulmonary embolism Nicotine dependence, cigarettes, uncomplicated Overactive bladder Thyroid disease Elevated cholesterol Spinal stenosis Anxiety Depression HTN (hypertension) Constipation GERD (gastroesophageal reflux disease) Long-term use of hydroxychloroquine Alcohol abuse Chronic bronchitis Seronegative rheumatoid arthritis Pilonidal cyst Neuropathy Carpal tunnel syndrome Rheumatoid arthritis Osteomyelitis Osteoarthritis Pleurisy Surgical History History of thoracic spinal fusion Hx of cervical spine surgery History of elbow surgery H/O colonoscopy History of total right knee replacement (TKR) H/O hernia repair History of surgery on arm History of left knee replacement (~2017) Previous back surgery (~2016) Family History Mother CHF (congestive heart failure) Stroke Uterine cancer Father CHF (congestive heart failure) Sister Diabetes Brother Diabetes Pulmonary embolism Other Mental health disorder Substance use disorder Social History Household Members: Significant Other Housing: Apartment Are you a primary care support representative to a significant other at home: No Do you presently have visiting nurse or other home services: No Unable to assess alcohol history related to: Unable to respond Alcohol intake: current Alcohol intake frequency: 3 or more drinks per day Alcohol type: hard liquor Patient Tobacco Use Status: Current everyday Tobacco user Tobacco use type: Cigarette Cigarette Packs Per Day: 1.5 Cigarettes Per Day: 40 Years Smoked: 40 e-Cigarette/Vaping Use: Never Used Second Hand Smoke Exposure: Yes Substance Use Type: Marijuana Advance Directives Date on File: 05/10/25 service: No Current occupational status: unemployed Cognitive needs: Yes (walker, cane) Hearing needs: No Vision needs: Yes (Reading glasses) Questionnaire Thrive Questionnaire Date Thrive assessed: 06/08/25 I am a: Patient What is your living situation today?: I have a steady place to live Within the past 12 months, did the food you bought not last and you didn't have the money to get more?: Never true Within the past 12 months, did you worry whether your food would run out before you got money to buy more?: Never true Do you have trouble paying for medicines?: No Do you have trouble getting transportation to medical appointments?: No Do you have trouble paying your heating and electricity bill?: No Do you have trouble taking care of your child, family member or friend?: Yes Do you have trouble with day-to-day activities such as bathing, preparing meals, shopping, managing finances, etc.?: Yes Are you currently unemployed and looking for a job?: No Are you interested in more education?: No Please select the resources that you would like help with: None Currently or been in a relationship where the following occur: No concerns reported THRIVE Score: 0 VENANCIO-7 AMB Questionnaire VENANCIO-7 Date VENANCIO - 7 assessed: 06/08/25 Source: Developed by Drs. Giovanni Castelan, Teri Garcia, Erlin Houston and colleagues, with an educational bill from [employer]. Review of Systems Const Denies body aches, Denies chills, Denies fever(s), Denies headache(s) and Denies poor appetite Eyes Reports no additional complaints ENT Denies dizziness and Denies headache(s) Card Denies chest pain, Denies edema, Denies lightheadedness and Denies dyspnea Resp Denies cough and Denies dyspnea GI Denies abdominal pain, Reports diarrhea, Denies nausea and Denies vomiting Musc Details: Chronic back pain Reports abnormal gait Skin/Breast Reports system reviewed and no additional complaints, except as documented Neuro Reports abnormal gait, Denies dizziness and Denies headache(s) Psych Reports no additional complaints Physical exam (Primary Care) Vital Signs: Last Vital Signs Pulse 50 06/08/25 13:05 BP 104/56 L 06/08/25 13:05 Pulse Ox 94 06/08/25 13:05 Tobacco/Smoking Status: Tobacco use Status Tobacco use date assessed 04/06/25 06/08/25 13:04 Patient Tobacco Use Status Current everyday Tobacco 06/08/25 13:04 Tobacco use type Cigarette 06/08/25 13:04 e-Cigarette/Vaping Use Never Used 06/08/25 13:04 Thrive Assessment: Date of Thrive Assessment Date Thrive assessed 06/08/25 06/08/25 13:04 Currently or been in a relationship where the following occur: No concerns reported Const General: cooperative, healthy appearing, comfortable and no acute distress Orientation/consciousness: patient oriented x3 HENMT Head: Yes normocephalic Ears: hearing grossly normal bilaterally General nose exam: Normal external nose present Eyes General: appearance normal, both eyes and all related structures Conjunctivae: conjunctivae normal Neck Neck: Yes full ROM and Yes no lymphadenopathy Resp Effort & Inspection: normal respiratory effort Auscultation: clear to auscultation bilaterally, no crackles, no rales, no rhonchi and no wheezes Cardio Rate: regular rate Rhythm: regular rhythm Skin General skin exam: no rashes or lesions noted Neuro General: patient oriented x3 Gait exam (Neuro): Normal gait present Extrem General: Yes normal to inspection, Yes full ROM and No edema Psych Affect: normal affect Attitude: cooperative Insight: Good insight present (Psych) Judgement: Good judgement present (Psych) Coding Level of Care Code Est Pt Level 3 (18924) Diagnoses Chronic pain syndrome G89.4 Seronegative rheumatoid arthritis M06.00 Leg swelling M79.89 Peripheral neuropathy G62.9 Left upper lobe pneumonia J18.9 Pneumonia type: due to unspecified organism Hypotension I95.9 Insomnia G47.00 Assessment & Plan Assessment & Plan (1) Chronic pain syndrome: Code(s): G89.4 - Chronic pain syndrome Category: Medical Plan: She has been doing well with the tapering and denies any side effects except for mild headaches and occasional break through pain primarily at night. We will continue with the taper of oxycodone and OxyContin I discussed with the patient I do not recommended increase at this time as she is still on quite a bit of medication. I did however agreed to hold the taper for this month given her recent hospitalization and we will resume the taper next month. I will also reach out to [facility] pain management to try and get her a sooner appointment. Patient is in agreement with this plan (2) Seronegative rheumatoid arthritis: Comment: seroneg dx 2019. MTX (wasn't done due to alcohol abuse) HCQ 2019 SSZ added 07/2023 effective Code(s): M06.00 - Rheumatoid arthritis without rheumatoid factor, unspecified site Category: Medical Plan: Continue to follow with Rheumatology. (3) Leg swelling: Code(s): M79.89 - Other specified soft tissue disorders Category: Medical Plan: Patient having bilateral leg swelling worse on the right. Bilateral legs and calves are nontender, nonerythematous and not warm. DVT was ruled out while in the hospital (4) Peripheral neuropathy: Code(s): G62.9 - Polyneuropathy, unspecified Category: Medical Plan: Continue on current dose of pregabalin as she finds this increased dose has been more helpful. (5) Left upper lobe pneumonia: Code(s): J18.9 - Pneumonia, unspecified organism Category: Medical Qualifiers: Pneumonia type: due to unspecified organism Qualified Code(s): J18.9 - Pneumonia, unspecified organism Plan: She has a repeat chest CT on Saturday and is following up with thoracic surgery on Saturday next week. She was advised by Infectious Disease to maintain on the Augmentin until being seen by thoracic surgery. Continue to follow with [facility] specialists (6) Hypotension: Code(s): I95.9 - Hypotension, unspecified Category: Medical Plan: Continue on midodrine t.i.d. as blood pressures remain soft. (7) Insomnia: Code(s): G47.00 - Insomnia, unspecified Category: Medical Plan: Patient is requesting an increase in her trazodone I discussed with the patient increase doses of trazodone have the potential to prolong the QT in interact with the hydroxychloroquine. Keep her on the trazodone 75 mg as this is a still low dose of the medication that could potentially help with sleep as well. Plan The patient will continue to be monitored for dyspnea and chest pain, with a focus on managing pleural effusion. A follow-up with the thoracic surgeon is scheduled to assess the current status and determine further interventions if necessary. For sleep disturbance, the patient is advised to adhere to sleep hygiene practices and consider adjusting trazodone dosage under medical supervision. The impact of current medications on sleep patterns will be evaluated. Management of diarrhea includes the use of probiotics and monitoring for any signs of improvement or worsening. The patient is advised to report any new symptoms or changes in bowel habits. Urinary retention will be monitored, and the patient is encouraged to increase water intake to improve urinary output. Any persistent issues will be further evaluated to rule out underlying causes. This note was constructed using voice recognition software. While every effort has been made to ensure accuracy and retail loss prevention investigator, still areas may have been included sometimes these areas may affect the content or meeting of the given symptoms. Total time spent caring for the patient today was 30 minutes. This includes time spent before the visit reviewing the chart, time spent during the visit, and time spent after the visit and documentation. Patient was informed and verbally consented to the use of an ambient scribe for clinic note documentation during this visit. Medications: Changed From trazodone 50 mg PO BEDTIME To trazodone 75 mg PO BEDTIME
[2025-06-08 13:05] VITALS: BP 104/56; PULSE 50; O2SAT 94
--- OUTSIDE RECORDS SUMMARY | 2025-06-08 13:30 | XMS_ITS | Clinical Summary ---
Author Organization [facility] Address [address] [place] [address] Care Team Providers Care Garde Manger Name Role Phone Cayla Peñaloza NP Primary Care Provider [phone] Allergies Active Allergy Reactions Criticality Noted Date [...] metroNIDAZOLE (FLAGYL) 500 MG tabletIndicatio ns:Abscess of chha space of mouth Take 1 tablet (500 mg total) by mouth 2 (two) times a day. Take with meals or food to reduce stomach upset. 44 tablet 2 Active cephalexin (KEFLEX) 500 MG capsuleIndicati ons:Abscess of chha space of mouth Take 2 capsules (1,000 mg total) by mouth 2 (two) times a day. 88 capsule 2 Active baclofen (LIORESAL) 5 MG tabletIndicatio ns:Abscess of chha space of mouth Take 3 tablets (15 [...] Problem Noted Date Diagnosed Date Abscess of chha space of mouth 01/16/2022 Overview (01/16/2022): Added automatically from request for surgery [id number] Facial abscess 01/16/2022 Family History Medical History [...] to complete this topic Insurance [facility] MEDICARE Advance Directives * Full Code (Latest Code Status on File) Date Activated Date Inactivated Comments 01/16/2022 11:40 PM Care Teams Garde Manger Relationship Specialty Start Date End Date Cayla Peñaloza NP [address] [place] [id number] PCP - General Family Medicine 01/16/22
--- OUTSIDE RECORDS SUMMARY | 2025-06-08 13:31 | XMS_ITS | Clinical Summary ---
Author Organization [facility] Address [address] [place] [address] Care Team Providers Care Diesel Dragline Operator Name Role Phone Cayla Peñaloza NP Primary Care Provider [phone] Social History Tobacco Use Types Packs/Day Years [...] age to complete this topic Care Teams Diesel Dragline Operator Relationship Specialty Start Date End Date Cayla Peñaloza, CREDIT PROCESSOR [facility] [id number] PCP - General Family Medicine 03/20/19
--- OUTSIDE RECORDS SUMMARY | 2025-06-08 13:31 | XMS_ITS | Clinical Summary ---
Author Organization [facility] Address [address] [place] [address] Phone Care Team Providers Care Color Paste Mixer Name Role Phone Lilo Davis Primary Care Provider [phone] Allergies Active Allergy Reactions Criticality Noted Date [...] getting referral to cardi[place] Dr. [place] [facility] She has history of lymphedema, her right [...] answered. Cervical cord compression wi th myelopathy ([facility] V24, [facility] V28) 03/12/2023 Overview (08/31/2024): Last Assessment [...] Seropositive rheumatoid arth ritis of multiple joints ([facility] V24, [facility] V28) 04/20/2020 Overview (08/31/2024): Last Assessment & Plan: Managed by rheumatology, taking hydroxychloroquine and sulfasalazine Pyogenic inflammation of bone ([facility] V24, [facility]/ [facility] V28) 12/02/2019 Lichen sclerosus 07/29/2018 Slow [...] 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 ([facility] V24, [facility] V28) 10/17/2017 Overview (08/31/2024): Last Assessment & Plan: Labs as ordered for treatment evaluation, she notes very sedentary lifestyle Status post total left knee replacement 10/17/20 17 Depression, major, recurrent , in partial remission ([facility] V24) 06/02/2015 Major depressive disorder, r ecurrent episode, in partial remission ([facility] V24) 06/18/2013 Opioid type dependence ([facility] V24, [facility] V28 ) 05/21/2013 Overview (08/31/2024): IMO update Alcohol abuse 04/03/2012 Back pain 04/03/2012 DJD (degenerative joint disease) of knee 012 Hypercholesteremia 04/03/2012 Hypertension 04/03/2012 Obesity 04/03/2012 Tobacco dependence 04/03/2012 Encounters Date Type Department Care Team Description 05/24/2025 Telephone Orthopedic Surgery [facility] [address] [phone] Yuli Rivers 05/17/2025 Telephone Orthopedic Surgery - [place] 250 175 [facility] [address] [place] [phone] Kasia Castillo surgery 05/12/2025 Telephone Orthopedic Surgery [facility] 250 175 [facility] [address] [place] [address] Kasia Castillo 04/16/2025 11:45 AM EDT Office Visit Orthopedic Surgery [facility] 175 [facility] [address] [place] [phone] Yu Hernández MD Cubital tunnel syndrome on left (Primary Dx) from Last 3 Months Immunizations [...] 2, co ntrolled, with complications (CMS/HCC V24, [facility] V28) DX:Diabetes mellitus type 2, controlled, with complications ([facility]) Esophageal reflux DX:Esophageal reflux Anxiety state [...] Date Smoking Tobacco: Every Day Cigarettes 1.5 44.6 Started: 1980 Passive Smoke Exposure: Past Smokeless [...] 1983 Zoster Vaccines (1 of 2) 2012 HIV Screening 09/25/2022 Hepatitis C Screening 09/25/2022 Lung Cancer Screening (Low Dose CT) 09/25/2022 Medicare Annual Wellness Visit 09/25/2022 Social Influencers of Health Screening 09/25/2022 RSV Immunization Adult Patients (1 - Risk 60-74 years 1-dose series) 2022 COVID-19 Vaccine (5 - season) 2024 03/14/2022, 08/23/2021, 02/03/2021, Additional history exists Diabetes: Annual Urine Albumin-Creatinine Ratio (uACR) 08/10/2024 11/29/2022, 07/21/2019, 07/29/2018 Diabetes: Blood Sugar Control Test (HGBA1C) 08/10/2024 12/04/2023 Depression Screening 10/28/2024 09/22/2024 Diabetes: Annual GFR (Glomerular Filtration Rate) 12/04/2024 12/04/2023, 12/04/2023, 02/18/2023, Additional history exists Hypertension/CHF/CAD Annual BMP Blood Test 12/04/2024 12/04/2023, 12/04/2023, 02/18/2023, Additional history exists Influenza Vaccine (#1) 2025 , 10/28/2023, 08/02/2023, Additional history exists Cholesterol Screening (Lipid Panel) 12/04/2028 12/04/2023 Colorectal Cancer Screening: Colonoscopy 01/09/2034 01/10/2024 DTaP,Tdap,and Td Vaccines (2 - Td or [...] Dodson RN Medical Devices Implanted Type Area Religious Leader Device Identifier Shelf Expiration Date Model / Serial / Lot Joints Knee Joints Knee Bilateral : Knee Procedures Procedure Name Priority Date/Time Associated Diagnosis Comments ANNUAL BMP BLOOD TEST Routine 12/04/2023 HEMOGLOBIN A1C Routine 12/04/2023 LIPID PANEL Routine 12/04/2023 from Last 3 Months or Most Recently Relevant to Health Maintenance Results * Annual BMP Blood Test (12/04/2023) Annual [...] [employer] [place] MEDIC[employer] ADVANTAGE Care Teams Color Paste Mixer Relationship Specialty Start Date End Date Lilo Davis PA [address], [address] [place], [place] [id number] PCP - General 02/01/25
== END 2025-06-08 14:03 | disposition home or self-care (01) ==
LOC: HO.HMCH 12:48
DX: G89.4 Chronic pain syndrome (principal); M06.00 Rheumatoid arthritis without rheumatoid factor, unspecified site; M79.89 Other specified soft tissue disorders; G62.9 Polyneuropathy, unspecified; J18.9 Pneumonia, unspecified organism; I95.9 Hypotension, unspecified; G47.00 Insomnia, unspecified

== ENCOUNTER → 2025-06-08 12:47 | Outpatient (BNVA) | payer MEDICARE, SELFPAY | DX: G89.4 Chronic pain syndrome (principal); I73.9 Peripheral vascular disease, unspecified; J42 Unspecified chronic bronchitis; M06.9 Rheumatoid arthritis, unspecified; F17.210 Nicotine dependence, cigarettes, uncomplicated; M06.00 Rheumatoid arthritis without rheumatoid factor, unspecified site; M79.89 Other specified soft tissue disorders; G62.9 Polyneuropathy, unspecified; J18.9 Pneumonia, unspecified organism; I95.9 Hypotension, unspecified; G47.00 Insomnia, unspecified; Z79.891 Long term (current) use of opiate analgesic | CPT/HCPCS: 96127; 99212 ==

== ENCOUNTER → 2025-06-30 15:58 | Outpatient (BNV) | payer MEDICARE, SELFPAY | PROVIDERS: Visit Provider Radiology Diagnostic Radiology | DX: R22.41 Localized swelling, mass and lump, right lower limb (principal) | CPT/HCPCS: 76882 ==

== ENCOUNTER 2025-06-30 15:59 | Outpatient (REF) | payer MEDICARE, SELFPAY ==
--- OUTSIDE RECORDS SUMMARY | 2024-01-10 06:40 | XMS_ITS ---
Author Organization [facility] Address [address] [place] [phone] Care Team Providers Care Manager Of Global Name Role Phone Anabela CANTRELL, Cayla Primary Care Provider Getachew De Dios Jr REASON FOR VISIT screening,hx polyps Encounters Encounter Location Date Provider Diagnosis [facility] [place] Outpatient [address] [place] [phone] 01/10/2024 Getachew Toscano Jr Encounter for screening colonoscopy Z12.11 and Personal history of colonic polyps Z86.010 Assessments Encounter Date Diagnosis (ICD Code) Assessment Notes Treatment Notes Treatment Clinical Notes Section Notes 01/10/2024 Encounter for screening colonoscopy (ICD-10 - Z12.11) 01/10/2024 Personal history of colonic polyps (ICD-10 - Z86.010) Plan Of Treatment No Information Progress Notes * BEAR KRAUSE MDOB: (64 yo F)Acc No.[id number]:01/10/2024 COLON WITH MAC Patient: BEAR HAYWARD Provider: Suri Toscano MD :1960 A ge:63 Y S ex:Female Date:01/10/2024 Address:[address] [place], [place] [phone] Pcp:Cayla Peñaloza NP Subjective: * Chief Complaints: [...] 01/10/2024 Generated for Rehan sullivan/Wali/Kennysmitting on: 0 06/30/2025 05:48 PM EDT
--- OUTSIDE RECORDS SUMMARY | 2024-02-13 11:00 | XMS_ITS | Continuity of Care Document ---
Author Organization [facility] Address [address] [place] [address] Phone Care Team Providers Care Echo Technologist Name Role Phone Flavio RIBEIRO, RVLeanne, NO, [...] E&M Established 15 Mins- CT & [place] [facility], [address]Javi [place], [id number], [place] tel:[phone] CVR - [place] - [facility] Varicose veins of bilateral lower extremities with other complication sLymphedema, not elsewhere classified 4 Flavio RIBEIRO RVT, NO Davila. [address] [address], [place], [place], [id number], [place]. tel:[phone] Referring Provider: Cayla Peñaloza NP, [address] [facility] [place], [address]. tel:[phone] Jordana For [facility], [address] [place] [address] [address]Javi [place], [id number], [place] tel:[phone] CVR - [place] [facility] Encounter for follow-up examination after completed treatment for conditions other than malignant neChronic venous hypertension (idiopathic) with other complication s of bilateral lower extremity 4 Flavio RIBEIRO RVT, NO Davila. [address] [address], [place], [place], [id number], [place]. tel:[phone] Referring Provider: Cayla Peñaloza NP, [address] [facility] [place], [address]. tel:[phone] [facility]ord[facility], [address] [place] [address] [address]Javi [place], [id number], [place] tel:[phone] CVR - [place] - [facility] Varicose veins of left lower extremity with other complication s 4 Wyatt Briceno. [address] [facility] [address], [place], [place], [id number], [place]. tel:[phone] Referring Provider: Cayla Peñaloza NP, [address] [facility] [place], [address]. tel:[phone] Jordana [facility], [address] [place] [address] [address]Javi [place], [id number], [place] tel:[phone] CVR - [place] - [facility] Encounter for follow-up examination after completed treatment for conditions other than malignant nePain in right leg 0 4 Flavio RIBEIRO RVT, NO Davila. [address] [place] [address], [address] [facility], [place], [id number], [place]. tel:[phone] Referring Provider: Cayla Peñaloza NP, [address] [facility] [place], [address]. tel:[phone] Jordana [facility], [address] [place] [address] [address]Javi [place], [id number], [place] tel:[phone] CVR - [place] - [facility] Chronic venous hypertension (idiopathic) with inflammation of right lower extremity Nov- 4 Flavio RIBEIRO RVT, NO Davila. [address] [place] [address], [address] [facility], [place], [id number], [place]. tel:[phone] Referring Provider: Cayla Peñaloza NP, [address] [place] [address] [place] [address] [place], [address]. tel:[phone] Jordana [facility], [address] [place] [address] Dr [address]Javi [place], [id number], [place] tel:[phone] CVR - [place] [facility] Encounter for follow-up examination after completed treatment for conditions other than malignant neVaricose veins of right lower extremity with pain Nov- 4 Flavio RIBEIRO RVT, NO Davila. [address] [place] [address], [address] [address], [place], [id number], [place]. tel:[phone] Referring Provider: Cayla Peñaloza NP, [address] [facility] [place], [address]. tel:[phone] Jordana [facility], [address] [place] [address] [address]Javi [place], [id number], [place] tel:[phone] CVR - [facility] Varicose veins of right lower extremity with other complication s 4 Flavio RIBEIRO RVT, RPVI Robert. [address] [place] [address], [address], [place], [id number], [place]. tel:[phone] Referring Provider: Cayla Peñaloza NP, [address] [facility] [place], [address]. tel:[phone] Offic/outpt E&m Estab 5 Min Trial - Telemedicine [facility], [address] [place] [address] Dr [address]Javi [place], [id number], [place] tel:[phone] [facility] Localized edemaCramp and spasmRestles s legs syndromeVeno us insufficienc y (chronic) (peripheral) Disorder of pigmentation , unspecified 3 Wyatt Briceno. [address] [facility] [address], [facility] [place], [id number], [place]. tel:[phone] Referring Provider: Cayla Peñaloza NP, [address] [facility] [place], [address]. tel:[phone] Offic Cons New/estab Mod-hi 60 [facility], [address] [place] [address] [address]Javi [place], [id number], [place] tel:[phone] CV - [facility] Varicose veins of bilateral lower extremities with other complication sVaricose veins of right lower extremity with inflammation Varicose veins of left lower extremity with inflammation Localized edemaRestles s legs syndromeLymp hedema, not elsewhere classifiedDi sorder of pigmentation , unspecifiedH ereditary lymphedemaCr amp and spasm Jul- 3 Pranay RIBEIRO FACS RVT RPGEMA Barahona. [address] [facility] [address], [facility] [place], [address], [place]. tel:[phone] Referring Provider: Cayla Peñaloza NP, [address] [facility] [place], [address]. tel:[phone] [facility], [address] [place] [address] Dr [address] 1000Javi [place], [id number], [place] tel:[phone] [facility] Chronic venous hypertension (idiopathic) with other complication s of bilateral lower extremity 3 Pranay RIBEIRO FACS RVT LEIDAVI Antonio Barahona. [address] [facility], [address], [place], [address], [place]. tel:[phone] Referring Provider: Cayla Peñaloza DIGESTER CAPPER, [address] [place] [address] Dr [address] [employer] [facility] , [place], [address]. tel:[phone] Family History Family Member Type Diagnosis Age At Onset No Information Payers Payer name Insurance type Covered democrat ID Thea alejandra(s) [employer] [place] [id number] Social History Type Description Quantity Date Captured [...]
--- OUTSIDE RECORDS SUMMARY | 2024-06-08 07:15 | XMS_ITS ---
Author Organization [facility] Address [address] [place] [address] Care Team Providers Care Bit Tapper Name Role Phone Lilo Davis Primary Care Provider Unavailab Aria Garcia [phone] Encounters Encounter Location Date Provider Diagnosis [address] [address] 06/08/2024 Aria Dodd Plan Of Treatment Next Appt Details Provider Name:Aria A Yousif , 07/26/2025 01:00:00 PM, [address] [place] [address], [phone], Progress Notes * Evelyne CLAUDIO MDOB: (64 yo F)Acc No.[id number]:06/08/2024 Progress Note Patient: Evelyne HAYWARD Provider: Leanne Dodd DPM :1960 A ge:63 Y S ex:Female Date:06/08/2024 Address:[address] [place], [place] [address], [id number] Pcp:Lilo Davis Subjective: * Chief Complaints: * [...] 06/08/2024 Generated for Rehan sullivan/Wali/Elba on: 0 06/30/2025 05:48 PM EDT
--- NOTE | ~2025-06-30 | US_ITS ---
Examination: Ultrasound nonvascular right lower extremity. CLINICAL INDICATION: Mass right thigh. COMPARISON: Ultrasound right lower extremity venous study TECHNIQUE: Limited imaging through the right anterior thigh is performed. FINDINGS: Limited imaging to the right anterior thigh reveals an anechoic oval cyst in the right anterior thigh measuring 3.3 x 1.8 x 3.9 cm. There is no vascularity seen. Similar cyst was seen on the previous ultrasound exam 05/10/2025. Previously measured 3.7 x 2.0 x 4.0 cm US/US Extremity Nonvas Limited RT IMPRESSION: Right anterior thigh cyst measuring 3.9 cm in maximum dimension. It is stable and can be drained under ultrasound if clinically deemed necessary. Electronically signed by: Mathew Castellanos MD 06/30/2025 04:19 PM EDT
--- OUTSIDE RECORDS SUMMARY | 2025-06-30 17:48 | XMS_ITS | Clinical Summary ---
Author Organization [facility] Address [address] [place] [address] Care Team Providers Care Centrifuge Operator Name Role Phone Cayla Peñaloza NP Primary Care Provider [phone] Allergies Active Allergy Reactions Criticality Noted Date [...] metroNIDAZOLE (FLAGYL) 500 MG tabletIndicatio ns:Abscess of airport maintenance chief space of mouth Take 1 tablet (500 mg total) by mouth 2 (two) times a day. Take with meals or food to reduce stomach upset. 44 tablet 2 Active cephalexin (KEFLEX) 500 MG capsuleIndicati ons:Abscess of airport maintenance chief space of mouth Take 2 capsules (1,000 mg total) by mouth 2 (two) times a day. 88 capsule 2 Active baclofen (LIORESAL) 5 MG tabletIndicatio ns:Abscess of airport maintenance chief space of mouth Take 3 tablets (15 [...] Problem Noted Date Diagnosed Date Abscess of airport maintenance chief space of mouth 01/16/2022 Overview (01/16/2022): Added automatically from request for surgery [id number] Facial abscess 01/16/2022 Family History Medical History [...] to complete this topic [facility] Advance Directives * Full Code (Latest Code Status on File) Date Activated Date Inactivated Comments 01/16/2022 11:40 PM Care Teams Centrifuge Operator Relationship Specialty Start Date End Date Cayla Peñaloza NP [address] [place] [id number] PCP - General Family Medicine 01/16/22
--- OUTSIDE RECORDS SUMMARY | 2025-06-30 17:49 | XMS_ITS | Encounter Summary ---
Author Organization [facility] Address [address] [place] [address] Phone Care Team Providers Care Automobile Glass Technician Name Role Phone Getachew Toscano MD Unavailable Braxton Hernandez DPM, Erik Unavailable Reason for Visit * Reason Comments Medication Refill Encounter Details Date Type Department Care Team (Late st Contact Info) Description 04/11/2025 Refill [facility] [address] [place] [address] Lynda Kumar MD [address] [place] [address] [email or web address] Medication Refill Social History Tobacco Use Types Packs/Day Years Used Date Smoking Tobacco: Every Day Cigarettes 1 35 Smokeless Tobacco: Never Alcohol Use Standard Drinks/Week Comments Yes 6 (1 standard drink = 0.6 oz pur e alcohol) 3-4 drinks, 2 x week, nips Child or Family Care Answer Date Record ed Do you have problems with on e of the following making it difficult for you to work, study, or receive health care? No 06/25/2024 Education Answer Date Recorded Are you interested in help w ith more adult education (for example, completing high school, GED, job training, learning the [place] language, technical skills, or developing parenting skills)? No 06/25/2024 Are you concerned about learning? Not on file 06/25/2024 No 06/25/2024 Yes 06/25/2024 Food Answer Date Recorded Within the past 6 months we worried whether our food would run out before we got money to buy more. Never True 06/25/2024 Within the past 6 months the food we bought just didn't last and we didn't have enough money to get more. Never True Residential Stability Answer Date Recor ded What is your housing situation today? I have yvonne rivas 06/25/2024 How many times have you move d in the past 12 months? Zero (I did not move) 06/25/2024 Paying for Meds Answer Date Recorded Do you have trouble paying for medicines? No 06/25/2024 Paying Utility Bills Answer Date Record ed Do you have trouble paying your heating or elect ricity bill? No 06/25/2024 Transportation Answer Date Recorded Has the lack of transportati on kept you from medical appointments or from getting medications? No 06/25/2024 Unemployment Answer Date Recorded Are you currently unemployed or working on a part-time or temporary basis, and looking for work? No 06/19/2022 Digital Access Answer Date Recorded No 06/25/2024 Yes 06/25/2024 Do you have reliable internet access at home? Ye s 06/25/2024 Do you have a device (e.g., phone, tablet, computer) with a working camera? Yes 06/25/2024 Intimate Partner Violence Answer Date R ecorded Denied Basic Needs Not on file 06/25/2024 In the past 12 months have y ou been in a relationship with a person who hurts, threatens, or tries to control you? No 06/25/2024 Worried food would run out Not on file 06/25 In the past 12 months have y ou been in a relationship with a person who hurts, threatens, or tries to control you? No 06/25/2024 Comments No Sex and Gender Information Value Date Recorded Sex Assigned at Not on file Legal Sex Female 9:45 PM EDT Gender Identity Not on file Sexual Orientation Not on file documented as of this encounter Plan of Treatment Not on file documented as of this encounter Visit Diagnoses Diagnosis Mixed hyperlipidemia documented in this encounter Additional Health Concerns Assessment Noted Time PHQ-9 Depression Total Score: 15 024 1:14 PM EDT PHQ-2 Depression Total Score: 3 06/25/20 24 1:14 PM EDT documented as of this encounter Care Teams Automobile Glass Technician Relationship Specialty Start Date End Date Getachew Toscano MD [address] [place] [address] [phone] Internal Medicine 02/17/20 Jun Limon DPM [address] [place] [id number] Podiatry 10/04/20 documented as of this encounter Additional Source Comments The information contained in this document represents components of the legal health record. It is not the complete legal health record.[facility]
--- OUTSIDE RECORDS SUMMARY | 2025-06-30 17:49 | XMS_ITS | Encounter Summary ---
Author Organization [facility] Address [address] [place] [address] Phone Care Team Providers Care Assurance Sourcing Manager Name Role Phone Getachew Toscano MD Unavailable Braxton Hernandez DPM, Erik Unavailable Reason for Visit * Reason Comments Medication Refill Encounter Details Date Type Department Care Team (Late st Contact Info) Description 04/24/2025 Refill [facility] [address] [place] [address] Lynda Kumar MD [address] [facility] [address] [place] [address] [email or web address] Medication Refill Social History Tobacco Use Types [...] high school, GED, job training, learning the [place] language, technical skills, or developing parenting skills)? [...] your housing situation today? I have yvonne sing 06/25/2024 How many times have you move [...] on file documented as of this encounter Progress Notes * Maida Foy MA - 04/26/2025 11:12 AM EDT Pt has established outside of [facility] documented in this encounter Plan of Treatment Not on file documented as of this encounter Visit Diagnoses Not on filedocumented in this encounter Additional Health Concerns Assessment Noted Time PHQ-9 Depression Total Score: 15 024 1:14 PM EDT PHQ-2 Depression Total Score: 3 06/25/20 24 1:14 PM EDT documented as of this encounter Care Teams Assurance Sourcing Manager Relationship Specialty Start Date End Date Getachew Toscano MD [address] [place] [address] [phone] Internal Medicine 02/17/20 Jun Limon DPM [address] [place] [phone] Podiatry 10/04/20 documented as of this encounter Additional Source Comments The information contained in this document represents components of the legal health record. It is not the complete legal health record.[facility]
--- OUTSIDE RECORDS SUMMARY | 2025-06-30 17:49 | XMS_ITS | Clinical Summary ---
Author Organization [facility] Address [address] [place] [phone] Phone Care Team Providers Care Utility Aide Name Role Phone Getachew Toscano MD Unavailable Braxton Hernandez DPM, Erik Unavailable Allergies Active Allergy Reactions Criticality Noted Date Comments Aripiprazole Other (See Comments) 10/17/2017 EDEMA Amoxicillin-Pot Clavulanate Rash Low 04/03/2012 Duloxetine Other (See Comments) 10/17/2017 edema Ibuprofen Other (See Comments) 10/14/2018 Kidney failure Lisinopril Angioedema 01/22/2018 Nsaids (Non-Steroidal Anti-Inflammatory Drug) 08/26/2019 Penicillins Diarrhea 10/17/2017 Medications blood-glucose meter (FREESTYLE FREEDOM) kitIndications:Typ e 2 diabetes mellitus with diabetic neuropathic arthropathy as directed 1 each 09/16/20 17 Active Additional Information Patient taking differently: As needed, as directed, Reported on 01/29/2022 lancets 28 gauge Misc 1 each 2 (two) times a day. 05/06/20 17 Active MULTIVITAMIN ORAL Take 1 capsule by mouth daily. Active naloxone (NARCAN) 1 mg/mL injection syringe 0.4 mL (0.4 mg total) by Nasal route once for 1 dose. For use with Mucosal Atomization Device 0.4 mL 10/26/20 21 Active acetaminophen (TYLENOL) 325 mg tablet Take 650 mg by mouth every 6 (six) hours as needed for mild pain. Active chlorhexidine (PERIDEX) 0.12 % solution 2 (two) times a day. 01/28/20 22 Active cholecalciferol (VITAMIN D3) 25 MCG (1,000 unit) tablet Take 1,000 Units by mouth daily. Active clotrimazole-betam ethasone (LOTRISONE) cream APPLY TOPICALLY TWICE DAILY TO AFFECTED AREA 45 g 09/28/20 22 Active hydrOXYchloroQUINE (PLAQUENIL) 200 mg tablet Take 1 tablet by mouth twice daily 60 tablet 11/26/19 23 Active FREESTYLE LITE Strp stripsIndications: Type 2 diabetes mellitus with diabetic neuropathic arthropathy 1 each by See Administration Instructions route 2 (two) times a day. 100 strip 2 05/01/20 23 Active sulfaSALAzine (AZULFIDINE) 500 mg tablet Take 2 tablets by mouth 2 (two) times a day. 11/10/19 24 Active docusate sodium (STOOL SOFTENER) 100 MG capsuleIndications :Slow transit constipation Take 1 capsule (100 mg total) by mouth 2 (two) times a day. 180 capsule 3 12/04/19 24 Active traZODone (DESYREL) 50 MG tablet Take 1 tablet (50 mg total) by mouth nightly at bedtime as needed. 90 tablet 3 12/23/19 24 Active omeprazole (PRILOSEC) 20 MG capsule Take 1 capsule (20 mg total) by mouth every morning. 90 capsule 3 12/23/19 24 Active hydrOXYzine (ATARAX) 25 MG tablet TAKE ONE TABLET BY MOUTH THREE TIMES DAILY NEEDED 21 tablet 1 02/11/20 24 Active nystatin cream APPLY CREAM TOPICALLY TO AFFECTED AREA TWICE DAILY NEEDED 30 g 07/02/20 24 Active cyclobenzaprine (FLEXERIL) 10 MG tablet Take 10 mg by mouth 3 (three) times a day as needed. Active ibuprofen (ADVIL,MOTRIN) 600 MG tablet Take 600 mg by mouth every 8 (eight) hours as needed for pain (specific location in comments). 06/25/20 24 Active sulfamethoxazole-t rimethoprim (BACTRIM DS) 800-160 mg per tablet Take 1 tablet by mouth 2 (two) times a day. 08/06/20 24 Active albuterol 90 mcg/actuation inhaler INHALE 2 PUFFS BY MOUTH EVERY 6 HOURS NEEDED FOR WHEEZING 18 g 1 10/12/20 24 Active amLODIPine (NORVASC) 2.5 MG tablet Take 1 tablet by mouth once daily 90 tablet 11/23/19 25 Active venlafaxine (EFFEXOR-XR) 150 MG 24 hr capsuleIndications :Recurrent major depressive disorder, in partial remission Take 1 capsule by mouth once daily 90 capsule 12/03/19 25 Active furosemide (LASIX) 20 MG tablet TAKE 1 TABLET BY MOUTH ONCE DAILY NEEDED 90 tablet 12/03/19 25 Active magnesium oxide 250 mg (150 mg elemental) Tab TAKE 1 TABLET BY MOUTH NIGHTLY AT BEDTIME 90 tablet 12/03/19 25 Active oxyCODONE (OXYCONTIN) 15 mg 12 hr tabletIndications: Lumbar radiculopathy Take 1 tablet (15 mg total) by mouth every 12 (twelve) hours for 28 days. Partial fill ok 56 tablet 01/03/20 25 Active levothyroxine (SYNTHROID, LEVOTHROID) 88 MCG tabletIndications: Acquired hypothyroidism TAKE 1 TABLET BY MOUTH IN THE MORNING 90 tablet 01/05/20 25 Active baclofen (LIORESAL) 10 MG tabletIndications: Back pain,Neck pain Take 1 tablet (10 mg total) by mouth 3 (three) times a day. 270 tablet 01/05/20 25 Active simvastatin (ZOCOR) 20 MG tabletIndications: Mixed hyperlipidemia Take 1 tablet (20 mg total) by mouth every evening. 90 tablet 01/05/20 25 Active oxyBUTYnin (DITROPAN-XL) 10 MG 24 hr tabletIndications: Overactive bladder Take 1 tablet (10 mg total) by mouth daily. 90 tablet 01/05/20 25 Active pregabalin (LYRICA) 75 MG capsule TAKE 1 CAPSULE(75 MG) BY MOUTH THREE TIMES DAILY 90 capsule 01/20/20 25 Active oxyCODONE HCl 10 mg TabIndications:Lum bar radiculopathy Take 1 tablet (10 mg total) by mouth every 8 (eight) hours as needed (chronic pain). partial fill okay. Must last one month 84 tablet 01/27/20 25 Active buPROPion (WELLBUTRIN XL) 300 MG ER 24 hr tablet Take 1 tablet by mouth once daily 90 tablet 01/26/20 25 Active Active Problems Problem Noted Date Diagnosed Date Cervical cord compression with myelopathy 202208/02/2023 Overview (08/02/2023): Last Assessment & Plan: Shanon is here for her second postop visit since removal of the plate at C5-6 with new ACDF with plating at C4-5 on 03/21/2023. Since her last visit, the swelling under the incision has resolved, her neck pain has improved and she has slightly better mobility. She also describes having better feeling in her hands. She is wearing her external bone stimulator up to 4 hours/day and continues to sleep in a recliner. She feels best if she is worn the stimulator to sleep as it seems to hold her head and neck in a good position. Otherwise, she finds that her head bounces forward at night and she wakes up with pain. On exam, her incision is well-healed, cervical rotation is 30 degrees to the left, 45 degrees to the right, strength is 5/5. Review of the AP/lateral flexion/extension x-rays from today shows a solid arthrodesis at C5-6 with an intact graft plate and screws at C4-5 where there is grade opposition of the endplates. There is no instability and she has maintained lordosis. She requested a referral slip to outpatient physical therapy as she has kept up with the home program since home PT but still has some daily neck pain and feels she could improve further. A referral slip was provided. We will plan on seeing her back in 6 months when she is finished using her stimulator with x-rays to assess the fusion. Depression with anxiety 11/22/2022 Use of opiates for therapeutic purposes 11/22/19 23 Assessment & Plan (07/01/2024 5:55 PM EDT): We discussed my significant concern regarding very [...] next month. Urine toxicology as ordered today. Spinal stenosis of lumbar region 08/07/2022 Hammer toe of left foot 09/08/2020 History of pulmonary embolism 07/26/2020 Seropositive rheumatoid arthritis of multiple leanna ints 04/20/2020 Assessment & Plan (07/01/2024 5:50 PM EDT): Managed by rheumatology, taking hydroxychloroquine and sulfasalazine Pyogenic inflammation of bone 12/02/2019 Essential hypertension 07/21/2019 Assessment & Plan (07/01/2024 5:49 PM EDT): Well controlled today in office, continue medications as prescribed Lichen sclerosus 07/29/2018 Slow transit constipation 04/24/2018 Chronic bilateral low back pain without sciatica 04/24/2018 Acquired hypothyroidism 10/17/2017 Anxiety 10/17/2017 Assessment & Plan (07/01/2024 5:52 PM EDT): VENANCIO-7 Total Score: 17 Reviewed. Nonpharmacologic and pharmacologic options briefly discussed. Prescribed hydroxyzine 25 mg PRN Assessment & Plan (02/11/2024 12:15 PM EDT): Continue hydroxyzine 25mg po q6h prn Cervical radiculopathy 10/17/2017 Charcot's joint of foot 10/17/2017 Chronic back pain 10/17/2017 Assessment & Plan (08/22/2024 10:41 AM EDT): Closely following with Neurosurgery, sees Dr. Gibson Idiopathic peripheral neuropathy 10/17/2017 Lumbar radiculopathy 10/17/2017 Assessment & Plan (02/11/2024 12:22 PM EDT): Patient has undergone multiple back surgeries in the past and follows with Dr. Gibson and Dr Baker. She has an appt with Neurology this Saturday. Patient was to go for PT but has not done this because it was going to cost her $70. She now has the money to attend. I discussed with her some of the pain she is having post surgeries may be related to arthritis. Controlled substance agreement signed and gone over. [facility] verified: last scripts of oxycodone 10mg tablets quant 72 on 01/29 and Lyrica 75mg tab quant 90 on 01/25. - script oxycontin 15mg bid quant 14 -script oxycodone 10mg 20mg q6h prn quant 30 -I discussed with her we will be attempting to wean her down. -I also discussed we do not do automatic refills. -she acknowledges and understands Mixed hyperlipidemia 10/17/2017 Neck pain 10/17/2017 Neuropathy 10/17/2017 Overactive bladder 10/17/2017 Assessment & Plan (07/01/2024 5:51 PM EDT): Supportive measures discussed, taking oxybutinin Right foot pain 10/17/2017 Psychophysiological insomnia 10/17/2017 Nicotine dependence, cigarettes, uncomplicated 1 12/18/2016 Assessment & Plan (07/01/2024 5:52 PM EDT): Smoking cessation encouraged Status post total left knee replacement 10/17/20 17 Type 2 diabetes mellitus wit h diabetic neuropathic arthropathy 10/17/2017 Assessment & Plan (07/01/2024 5:50 PM EDT): Labs as ordered for treatment evaluation, she notes very sedentary lifestyle Assessment & Plan (01/22/2018 1:40 PM EDT): Discussed shared goal of continuing exercise and balanced diet; decrease ice cream to twice weekly, with goal of minimizing altogether. Pt to trial gabapentin 600 mg qAM, 900 mg midday, and 900 mg QHS Entrapment of right ulnar nerve at elbow 017 Recurrent major depressive disorder, in partial remission 06/02/2015 Assessment & Plan (07/01/2024 5:52 PM EDT): Images from the original note were not included. 11/22/2022 1:56 PM 12/04/2023 8:55 AM 06/25/2024 1:14 PM PHQ Depression Screening Score Little interest or pleasure in doing things Several days More than half of the days More than half of the days Feeling down, depressed, or hopeless Several days Several days Several days Trouble falling or staying asleep, or sleeping too much Several days Nearly every day Nearly every day Feeling tired or having little energy Several days Nearly every day Nearly every day Poor appetite or overeating Several days More than half the days More than half the days Feeling bad about yourself - or that you are a failure or have let yourself or your family down Several days More than half the days More than half the days Trouble concentrating on things, such as reading the newspaper or watching television Not at all More than half the days Several days Moving or speaking so slowly that other people could have noticed. Or the opposite - being so fidgety or restless that you have been moving around a lot more than usual Not at all More than half the days Several days Thoughts that you would be better off , or of hurting yourself in some way Not at all Not at all Not at all If you checked off any problems, how difficult have these problems made it for you to do your work, take care of things at home, or get along with other people? Somewhat difficult Very difficult Somewhat difficult PHQ-9 Total Score 6 17 15 Chronic, continuous use of opioids 05/21/2013 Overview (10/17/2017): [place]: [facility] [place] Assessment & Plan (12/11/2024 4:00 PM EST): I again discussed my concerns for the very high MME, polypharmacy, and previously reported falls and mobility concerns. Discussed that it was my medical opinion that increase in opioid prescription was not appropriate at this time. Patient became agitated and declined additional care or discussion of other health topics today, requesting end of visit stating that she did not desire our help. She additionally declined to complete urine toxicology per controlled substance agreement after being unable to provide urine sample during rooming process today. Assessment & Plan (08/22/2024 10:41 AM EDT): Current prescription: Oxycodone IR 20 mg every 6 hours as needed for pain Oxycontin 15 mg 12 hour tablet every 12 hours Total MME: 165 Proposed taper as follows: Oxycodone IR 20 mg every 8 hours as needed Oxycontin ER every 12 hours Total MME: 135 Oxycodone IR 15 mg every 8 hours as needed Oxycontin 15 mg ER every 12 hours Total MME: 112.5 Oxycodone IR 10 mg every 8 ours as needed Oxycontin 15 mg ER 12 hours Total MME: 90 As we discussed in establishing care visit, I have significant concerns regarding very high MME, narcotic use, polypharmacy, and self-reported falls. We discussed that further medication refills by myself are dependent on this taper scheduled after review with my supervising physician, Dr. Car. She reports understanding and notes that she will search for a new primary care provider. I confirmed that we will continue to provide care until she is able to do so. Alcohol use 04/03/2012 Back pain 04/03/2012 Primary osteoarthritis of right knee 04/03/2012 Resolved Problems Problem Noted Date Diagnosed Date Resolved Date Smoking 04/24/2018 07/21/2019 Chronic pain of both knees 10/17/2017 0 03/18/2019 Encounters Date Type Department Care Team Description 04/25/2025 Refill [facility] [address] [place] [address] Dr [address] [place] [address] Candice John, HEAT READER Medication Refill 04/24/[address] [place] [address] Lynda Kumar MD Medication Refill 04/11/[address] [place] [address] Lynda Kumar MD Medication Refill 04/09/[address] [place] [address] Tomás Lubin PA-C Medication Refill 04/06/2025 Refill [facility] Primary [facility] [address] [place] [address] Lynda Kumar MD Medication Refill (Levothyroxine Sodium 88 MCG Oral Tablet) from Last 3 Months Immunizations Immunization Administration Dates Next Due COVID-19 (Pre-08/19) Pfizer Vaccine, mRNA, PF 02/03/2021,01/13/2021 INFLUENZA, SPLIT VIRUS, TRIVALENT PF ,08/30/2020,10/12/2016,07/23 INFLUENZA, SPLIT VIRUS, TRIV ALENT W/ PRESERVATIVE IM 07/25/2015,08/10/2014,08/14/2012 Influenza Quadrivalent Prese rvative Free IM 08/02/2023,08/07/2022,07/26/2020,07/21,07/29/2018,07/19/2017 Influenza trivalent preserva tive free intradermal 06/30/2013 Influenza, Unspecified Formulation 10/28/2023 Pneumococcal conjugate PCV13 05/12/2015 Pneumococcal polysaccharide PPSV23 07/19/2017 Td (adult) 5 Lf Tetanus Toxo id, PF, Adsorbed 03/17/2016,01/24/2006 Tdap 01/12/2024 Family History Medical History Relation Comments Arthritis Brother 1 Diabetes Brother 1 Heart disease Brother 1 Hyperlipidemia Brother 1 Hypertension Brother 1 Arthritis Brother 2 COPD Brother 2 Diabetes Brother 2 Heart disease Brother 2 Hyperlipidemia Brother 2 Hypertension Brother 2 CV disease Father Diabetes Father Diabetes mellitus Father Hypertension Father Cancer Mother Stroke Mother Diabetes mellitus Sibling 1 Hypertension Sibling 1 Hypertension Sister 1 Alcohol abuse Sister 2 Relation Status Comments Brother 1 Alive Brother 2 (Age 62) Father (Age 58) Mother (Age 83) Sibling 1 Alive Sibling 2 Alive Sister 1 Alive Sister 2 Alive Social History Tobacco Use Types Packs/Day Years Used Date Smoking Tobacco: Every Day Cigarettes 1 35 Smokeless Tobacco: Never Tobacco Cessation:Ready to Q [...] high school, GED, job training, learning the [place] language, technical skills, or developing parenting skills)? [...] Sign Reading Time Taken Comments Blood Pressure 132/74 12/11/2024 10:33 AM EST Pulse 73 12/11/2024 10:33 AM EST Temperature 36.9 C (98.4 F) 02/08/2023 2:15 PM EDT Respiratory Rate 16 12/04/2023 9:01 AM EST Oxygen Saturation 97% 12/11/2024 10:33 AM EST Inhaled Oxygen Concentration - - Weight 84.4 kg (186 lb) 08/19/2024 1:23 PM EDT Height 157.5 cm (5' 2.01 ) 08/19/2024 1:23 PM ED T Body Mass Index 34.01 08/19/2024 1:23 PM EDT Plan of Treatment Health Maintenance Due Date Last Done Comments COLOGUARD 2007 FIT TEST 2007 FOBT 2007 SIGMOIDOSCOPY 2007 VIRTUAL COLONOSCOPY 2007 ZOSTER VACCINES (1 of 2) 2012 COLONOSCOPY 02/05/2020 02/04/2015 COLORECTAL CANCER SCREENING 02/05/2020 PNEUMOCOCCAL VACCINES (50+ years) (3 of 3 - PCV20 or PCV21) 07/19/2022 07/19/2017, 05/12/2015 RSV VACCINE (1 - Risk 60-74 years 1-dose series) 2022 PAP SMEAR 11/21/2023 11/21/2018, 10/29, 04/08/2015 URINE MICROALBUMIN/CREATININE RATIO 11/28/2023 11/28/2022, 07/21/2019, 07/29/2018, Additional history exists HEMOGLOBIN A1C 06/03/2024 12/04/2023, 04/2024, 08/02/2023, Additional history exists LUNG CANCER SCREENING (LDCT Only) 11/25/2024 11/25/2023, 08/02/2023, 08/31/2020, Additional history exists TSH LEVEL 12/04/2024 12/04/2023, 01/27, 02/16/2023, Additional history exists DIABETIC EYE EXAM 12/25/2024 12/26/2023, , 07/29/2018 INFLUENZA VACCINE (#1) 2025 , 10/28/2023, 08/02/2023, Additional history exists BLOOD PRESSURE 06/10/2025 12/11/2024 DEPRESSION SCREENING 06/25/2025 06/25/2024, 06/25/20 24 COVID-19 VACCINE ( season) 2025 03/14/2022, 08/23/2021, 02/03/2021, Additional history exists MAMMOGRAM 08/14/2025 08/14/2023, 07/28, 08/17/2020, Additional history exists SMOKING Hx and SMOKELESS TOBACCO SCREENING 08/19/2025 08/19/2024 Adult Td,Tdap Booster 01/11/2034 01/12/2024 , 03/17/2016, 01/24/2006 HEPATITIS C SCREENING Completed 05/19/2018 HIV ONE-TIME SCREENING (18-65 YEARS) Completed 08/06/2019 HEPATITIS A VACCINES Aged Out No long er eligible based on patient's age to complete this topic HIB VACCINES Aged Out No longer eligi ble based on patient's age to complete this topic MENINGOCOCCAL VACCINES (ACWY) Aged Out No longer eligible based on patient's age to complete this topic MENINGOCOCCAL VACCINES (B) Aged Out N o longer eligible based on patient's age to complete this topic Medical Devices Not on file Procedures Procedure Name Priority Date/Time Associated Diagnosis Comments DIABETES EYE EXAM FOR RESULT ENTRY ONLY Routine 12/26/2023 4:28 PM EST HEMOGLOBIN A1C Routine 12/04/2023 10:38 AM EST Type 2 diabetes mellitus with diabetic neuropathic arthropathy, without long-term current use of insulin TSH Routine 12/04/2023 10:38 AM EST Acquired hypothyroidism LDCT PROCEDURE FOR RESULT ENTRY ONLY Routine 11/25/2023 3:36 PM EST MAMMOGRAPHY Routine 08/14/2023 OUTSIDE URINE MALB/CRE RATIO Routine 11/28/2022 OUTSIDE HIV Routine 08/06/2019 PAP TEST Routine 11/21/2018 12:00 AM EST OUTSIDE HEPATITIS C VIRUS SCREENING Routine 05/19/2018 COLONOSCOPY FOR RESULT ENTRY ONLY Routine 02/04/2015 from Last 3 Months or Most Recently Relevant to Health Maintenance Results * DIABETES EYE EXAM FOR RESULT ENTRY ONLY (12/26/2023 4:28 PM EST) Historical Provider HEALTH MAINTENANCE Edited Result - Final * TSH (12/04/2023 10:38 AM EST) TSH 2.10 0.27 - 4.20 uIU/mL [facility] Blood 12/04/2023 10:3 8 AM EST 12/04/2023 10:44 AM EST Cayla Peñaloza NP LAB BLOOD ORDERABLES Final Resu lt Performing Organization Address City/[facility]/ZIP Co de Phone Number [address] [address] * Hemoglobin A1c (12/04/2023 10:38 AM EST) HEMOGLOBIN A1C 5.2 4.3 - 5.8 % [facility] Blood 12/04/2023 10:3 8 AM EST 12/04/2023 10:44 AM EST Cayla Peñaloza NP LAB BLOOD ORDERABLES Final Resu lt Performing Organization Address City/[facility]/ZIP Co de Phone Number [address] [address] * LDCT PROCEDURE FOR RESULT ENTRY ONLY (11/25/2023 3:36 PM EST) Jennifer [facility] Final Res ult * HM MAMMOGRAPHY FOR RESULT ENTRY ONLY (08/14/2023) Cayla Peñaloza NP HEALTH MAINTENANCE Edited Resul t - Final * Outside Urine MALB/Cre Ratio (11/28/2022) Microalbumin/Cr eatinine Ratio, urine - External 14.7 Historical Provider LAB BLOOD ORDERABLES Madelaine l Result * OUTSIDE HIV TEST (08/06/2019) HIV - External Neg us Historical Provider LAB BLOOD ORDERABLES Madelaine l Result * Pap Smear (11/21/2018 12:00 AM EST) 11/21/2018 11/24/2018 11: 13 AM EST Narrative SEE NARRATIVE - 11/27/2018 11:12 AM EST [address] [address] [employer] K Special Education Teacher: Laurel Pugh MD SAMPLE HAND Cytology Report FINAL DIAGNOSIS A. PAP SMEAR (SUREPATH) CE: SPECIMEN ADEQUACY: Satisfactory for evaluation; transformation zone present. INTERPRETATION: NEGATIVE FOR INTRAEPITHELIAL LESION OR MALIGNANCY. Electronically Signed Out By: KADIE Edgar([facility]) The Pap test is a screening test primarily for squamous cancers and precursors and has associated false-negative and false-positive results. New technologies such as liquid-based preparations may decrease but will not eliminate all false-negative results. Regular sampling and follow-up of unexplained clinical signs and symptoms are recommended to minimize false negative results. PROCEDURES/ADDENDA HPV Testing (Requested) Ordered Date: 11/24/2018 HPV Test Negative for high-risk human papillomavirus types 16, 18, 45 and the Other high risk probe set (Includes 31, 33, 35, 39, 51, 52, 56, 58, 59, 66, 68) by [employer] HR-HPV analysis. Clinical correlation is advised. This HPV test was performed at [facility], [address] [place] [address]. This test has been FDA approved for [facility] cervical cytology specimens. The accuracy and precision of this test for all other specimen sources has been verified in the Cytopathology Laboratory of the [facility] and has not been cleared or approved by the U.S. Food and Drug Administration. Clinical correlation is advised. CLINICAL HISTORY Date of Last Menstrual Period: Not Provided Menstrual History: Post Menopausal Other Clinical Conditions: Screening Pap SPECIMEN SOURCE A: PAP SMEAR (SUREPATH) CE Patient Name: EVELYNE CLAUDIO : 1960 (Age: 58) Sex: F Institution: [facility] Location: [facility] Date of Collection: 11/21/2018 Date of Reported: 11/27/2018 11:12 Results to: Cayla Peñaloza MSN, BSN us Cayla Peñaloza BLENDING TANK TENDER CYTOLOGY ORDERABLES Final Resul t SEE NARRATIVE * Outside Hepatitis C Virus Screening (05/19/2018) Hepatitis C Screening - External Neg Historical Provider LAB BLOOD ORDERABLES Madelaine l Result * COLONOSCOPY FOR RESULT ENTRY ONLY (02/04/2015) Pathologist [facility] Colonoscopy . Historical Provider HEALTH MAINTENANCE Final Result from Last 3 Months or Most Recently Relevant to Health Maintenance Insurance [employer] MEDICARE HMO REPLACEMENT [facility] MEDICARE HMO REPLACEMENT [employer] REPLACEMENT [facility] MEDICARE HMO REPLACEMENT Care Teams Utility Aide Relationship Specialty Start Date End Date Getachew Toscano MD [address] [place] [address] [place] [id number] Internal Medicine 02/17/20 Jnu Limon DPM [address] [place] [id number] Podiatry 10/04/20 Additional Source Comments The information contained in this document represents components of the legal health record. It is not the complete legal health record.[facility]
--- OUTSIDE RECORDS SUMMARY | 2025-06-30 17:49 | XMS_ITS | Clinical Summary ---
Author Organization [facility] Address [address] [place] [address] Care Team Providers Care Hospice Social Worker Name Role Phone Cayla Peñaloza NP Primary Care Provider [phone] Social History Tobacco Use Types Packs/Day Years [...] age to complete this topic Care Teams Hospice Social Worker Relationship Specialty Start Date End Date Cayla Peñaloza, MILK PICKUP DRIVER [facility] [id number] PCP - General Family Medicine 03/20/19
--- OUTSIDE RECORDS SUMMARY | 2025-06-30 17:49 | XMS_ITS | Clinical Summary ---
Author Organization [facility] Address [address] [place] [address] Phone Care Team Providers Care Skip Load Driver Name Role Phone Lilo Davis Primary Care Provider [phone] Allergies Active Allergy Reactions Criticality Noted Date [...] getting referral to cardiology Dr. [place] at [facility] [place]. She has history of lymphedema, her right [...] answered. 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 ([facility] V24, [facility] V28) 04/20/2020 Overview (08/31/2024): Last Assessment & Plan: Managed by rheumatology, taking hydroxychloroquine and sulfasalazine Pyogenic inflammation of bone ([facility] V24, [facility] V28) 12/02/2019 Lichen sclerosus 07/29/2018 [...] 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 ([facility] V24, [facility] V28) 10/17/2017 Overview (08/31/2024): Last Assessment & Plan: Labs as ordered for treatment evaluation, she notes very sedentary lifestyle Status post total left knee replacement 10/17/20 17 Depression, major, recurrent , in partial remission ([facility] V24) 06/02/2015 Major depressive disorder, r ecurrent episode, in partial remission ([facility] V24) 06/18/2013 Opioid type dependence ([facility] V24, [facility] V28 ) 05/21/2013 Overview (08/31/2024): IMO update Alcohol abuse 04/03/2012 Back pain 04/03/2012 DJD (degenerative joint disease) of knee 012 Hypercholesteremia 04/03/2012 Hypertension 04/03/2012 Obesity 04/03/2012 Tobacco dependence 04/03/2012 Encounters Date Type Department Care Team Description 05/24/2025 Telephone Orthopedic Surgery [facility] [address] [phone] Yuli Rivers 05/17/2025 Telephone Orthopedic Surgery [facility] 250 175 [facility] [address] [place] [phone] Kasia Castillo 05/12/2025 Telephone Orthopedic Surgery [facility] 250 175 [facility] [address] [place] [address] Kasia Castillo 04/16/2025 11:45 AM EDT Office Visit Orthopedic Surgery [facility] 175 [facility] [address] [place] [phone] Yu Hernández MD Cubital tunnel syndrome on [...] mellitus type 2, co ntrolled, with complications ([facility] V24, [facility] V28) DX:Diabetes mellitus type 2, controlled, with complications ([facility]) Esophageal reflux DX:Esophageal reflux Anxiety state DX:Anxiety state Depressive disorder DX:Depressiv e disorder Hyperlipidemia DX:Hyperlipidemi a Essential hypertension DX:Essent ial hypertension Rheumatoid arthritis (CMS/ C V24, [facility] V28) DX:Rheumatoid arthritis (HCC ); COMMENT: Severe [...] Date Smoking Tobacco: Every Day Cigarettes 1.5 44.7 Started: 1980 Passive Smoke Exposure: Past Smokeless [...] 04/16/2025 11:57 AM EDT Plan of Treatment Health Maintenance [...] Dodson RN Medical Devices Implanted Type Area Report Specialist Device Identifier Shelf Expiration Date Model / Serial / Lot Joints Knee Joints Knee Bilateral : Knee Procedures Procedure Name Priority Date/Time Associated Diagnosis Comments ANNUAL BMP BLOOD TEST Routine 12/04/2023 HEMOGLOBIN A1C Routine 12/04/2023 LIPID PANEL Routine 12/04/2023 from Last 3 Months or Most Recently Relevant to Health Maintenance Results * Annual BMP Blood Test (12/04/2023) Pathologist [facility] Annual BMP Blood Test Abstarcted Historical Provider HEALTH MAINTENANCE Final Result * Hemoglobin A1c (12/04/2023) [facility] Hemoglobin A1C 0.0 % Comment:No Interpretation, A [...] [employer] [place] MED[employer]VANTAGE Care Teams Skip Load Driver Relationship Specialty Start Date End Date Lilo Davis PA [address] [facility], [address] [place] [address] PCP - General 02/01/25
--- OUTSIDE RECORDS SUMMARY | 2025-06-30 17:49 | XMS_ITS | Encounter Summary ---
Author Organization [facility] Address [address] [place] [address] Phone Care Team Providers Care Bevel Face Stoner And Polisher Name Role Phone Getachew Toscano MD Unavailable Braxton Hernandez DPM, Erik Unavailable Reason for Visit * Reason Comments Medication Refill Encounter Details Date Type Department Care Team (Late st Contact Info) Description 04/25/2025 Refill [facility] [place] [facility] [address] [facility] [address] [place] [address] Candice John, FAWN [address] [facility] [address] [place] [address] [email or web address] Medication Refill Social History Tobacco Use Types [...] high school, GED, job training, learning the [place] language, technical skills, or developing parenting skills)? [...] documented as of this encounter Care Teams Bevel Face Stoner And Polisher Relationship Specialty Start Date End Date Getachew Toscano MD [address] [place] [address] [place] [phone] Internal Medicine 02/17/20 Jun Limon DPM [address] [place] [address] Podiatry 10/04/20 documented as of this encounter Additional Source Comments The information contained in this document represents components of the legal health record. It is not the complete legal health record.[facility]
--- OUTSIDE RECORDS SUMMARY | 2025-06-30 17:49 | XMS_ITS | Patient Health Record ---
Author Organization [facility] Address [address] [place] [address] Care Team Providers Care Match Maker Name Role Phone Anabela CANTRELL, Cayla Primary [...] Problem Status W/U Status Risk Notes Problem 920214211 Colon cancer screening (Z12.11) Active confirmed Problem 489264617 Personal history of colonic polyps (Z86.010) Active confirmed Problem 32542008 Drug-induced constipation (K59.03) Active confirmed Problem 182343843 Gastroesophageal reflux disease, unspecified whether esophagitis present (K21.9) Active confirmed Plan Of Treatment Future Test Test Name Order Date COLONOSCOPY 11/04/2014 COLONOSCOPY 11/27/2023 Insurance Providers Payer Name Payer Address Payer Phone Subscriber Number Group Number Insured Name Patient Relationship to Insured Coverage Start Date Coverage End Date [facility] [address] [place] [address] [id number] BEAR KRAUSE Self - patient is the [...]
--- OUTSIDE RECORDS SUMMARY | 2025-06-30 17:49 | XMS_ITS | Encounter Summary ---
Author Organization [facility] Address [address] [place] [address] [address] [place] [address] Phone Care Team Providers Care Senior Geologist Name Role Phone Getachew Toscano MD Unavailable Braxton Hernandez DPM, Erik Unavailable [phone] Reason for Visit * Reason Comments Medication Refill Levothyroxine Sodium 88 MCG Oral Tablet Encounter Details Date Type Department Care Team (Late st Contact Info) Description 04/06/2025 Refill [facility] [place] [facility] [address] [facility] [address] [place] [address] Lynda Kumar MD [address] [facility] [address] [place] [address] [email or web address] Medication Refill (Levothyroxine Sodium 88 MCG Oral Tablet) Social History Tobacco Use Types Packs/Day Years [...] high school, GED, job training, learning the [place] language, technical skills, or developing parenting skills)? [...] as of this encounter Visit Diagnoses Diagnosis Acquired hypothyroidism Unspecified hypothyroidism documented in this encounter Additional Health Concerns Assessment Noted Time PHQ-9 Depression Total Score: 15 024 1:14 PM EDT PHQ-2 Depression Total Score: 3 06/25/20 24 1:14 PM EDT documented as of this encounter Care Teams Senior Geologist Relationship Specialty Start Date End Date Getachew Toscano MD [address] [place] [phone] Internal Medicine 02/17/20 Jun Limon DPM [address] [place] [address] Podiatry 10/04/20 documented as of this encounter Additional Source Comments The information contained in this document represents components of the legal health record. It is not the complete legal health record.[facility]
--- OUTSIDE RECORDS SUMMARY | 2025-06-30 17:49 | XMS_ITS | Patient Health Record ---
Author Organization [facility] Address [address] [facility] [place] [address] Care Team Providers Care Internet Marketing Assistant Name Role Phone Lilo Davis Primary Care Provider Unavailab dial Aria Dodd Unavailable [phone] Allergies Allergen (clinical drug ingredient) Drug/Non Drug Allergy documented on EMR Reaction Allergy Type Onset Date Status aripiprazole Abilify edema Drug Allergy Acti ve amoxicillin / clavulanate Augmentin rash Drug Allergy Active duloxetine Cymbalta edema Drug Allergy Active Penicillin yeast infection Drug Allergy Active Results Component Value Reference Range Notes HEMOGLOBIN A1C (GLYCOHEMOGLO BIN) Reviewed date:04/19/2025 02:25:18 PM Interpretation: Performing Lab: Notes/Report: HEMOGLOBIN A1C % (HH) 5.4 Reason For Referral No Information Medications Medication SIG (Take, Route, Frequency, Duration) Notes Start Date End Date Status Venlafaxine HCl ER 150 MG 1 tablet with food Orally Once a day Active Simvastatin 20 MG 1 tablet in the even ing Orally Once a day Active Tretinoin (Emollient) Not-Taking Extra Depth Orthopedic Shoes (1 Pair) with Customized Heat Molded Multidensity Innersoles (3 Pair) as directed Dx: NIDDM/Polyneuropathy (E11.42), Hammertoe Foot Deformity (M20.41,M20.42), Preulcerative Skin Lesion(s) (L85.1 Active Furosemide 20 MG as directed Orally O nce a day PRN Active Naproxen Not-Taking Lisinopril Not-Takin g Diclofenac Sodium 1 % as directed Externally Not-Taking metFORMIN HCl 850 MG Orally Twice a day Not-Taking Extra Depth Orthopedic Shoes (1 Pair) with Customized Heat Molded Multidensity Innersoles (3 Pair) as directed Dx: NIDDM/Polyneuropathy (E11.42), Hammertoe Foot Deformity (M20.41,M20.42), Preulcerative Skin Lesion(s) (L85.1 10/11/2020 Not-Taking Meloxicam 15 MG 1 tablet Orally Once a day; Duration: 30 day(s) Not-Taking Neurontin 300 MG 1 capsule Orally Onc e a day; Duration: 30 day(s) Not-Taking Suboxone Not-Taking amLODIPine Besylate 2.5 MG 1 tablet Orally Once a day; Duration: 30 day(s) Not-Taking OxyCONTIN 20 MG 1 tablet Orally ever y 12 hrs Not-Taking sulfaSALAzine 500 MG TAKE 2 TABLETS BY M OUTH TWICE DAILY Oral; Duration: 30 Days Active Advair Diskus Not-Ta park Abilify 10 MG 1 tablet Orally Once a day Not-Taking Lyrica Active Percocet 10-325 MG 1 tablet as needed Orally TID Not-Taking Eliquis 5 MG as directed Orally Not-Taking Stool Softener 100 MG 1 capsule as neede d Orally Once a day; Duration: 30 day(s) Not-Taking buPROPion HCl ER (XL) 300 MG 1 tablet in the morning Orally Once a day; Duration: 30 day(s) Active Cyclobenzaprine HCl Not-Taking Baclofen 10 MG 1 tablet Orally Thre e times a day Active Gabapentin Not-Takin g Omeprazole 20 MG 1 capsule 30 minutes before morning meal Orally Once a day; Duration: 30 day(s) Active Wellbutrin SR Not-Sandor nick oxyBUTYnin Chloride ER 10 MG 1 tablet Orally Once a day; Duration: 30 day(s) Active Extra-Depth Diabetic Shoes with 3 Pair Custom heat-molded multi-density innersoles Not-Taking Plaquenil 200 MG as directed Orally Active Multivitamin Adult - as directed Orally Not-Taking traZODone HCl 50 MG 1 tablet at bedtime as needed Orally Once a day; Duration: 30 day(s) PRN Active LORazepam Not-Taking OxyCONTIN 15 MG 1 tablet Orally ever y 12 hrs Active Apixaban 5 MG as directed Orally Not-Taking oxyCODONE HCl 10 MG 1 tablet as needed Orally every 6 hrs Active Nystatin Not-Taking Immunizations Vaccine Route Administration Date Status Comme nts Influenza Unknown 08/30/2020 Administered Influenza Unknown 06/28/2022 Administered Influenza Unknown 06/28/2024 Administered COVID-19 Pfizer BioNTech Vaccine Unknown 02/03/2021 Adm inistered 01/13/21 Social History Tobacco Use: Social History Observation [...] Problem Acquired hammer toe of right foot (9628032660413979 ) Other hammer toe(s) (acquired), right foot (M20.41) Active confirmed Problem Acquired hammer toe of left foot (0519774845119231 ) Other hammer toe(s) (acquired), left foot (M20.42) Active confirmed Problem Polyneuropathy due to type 2 diabetes mellitus (961882572) Type 2 diabetes mellitus with diabetic polyneuropathy (E11.42) Active confirmed Problem Smoker (43015262) Smoker (F17.200) Active confi rmed Problem Arthropathy associated with a neurological disorder (42286905) Charcot's joint of right foot (M14.671) Active confirmed Problem Diabetic neuropathic arthropathy (404064933) Diabetic Charcot's foot (E11.610) Active confirmed Vital Signs Blood pressure diastolic 63 mm Hg 04/19/2025 Height 5ft3in in 04/19/2025 Blood pressure systolic 120 mm Hg 04/19/2025 Weight 195 lbs 04/19/2025 BMI 34.54 kg/m2 04/19/2025 Procedures Procedure Date Ordered Date Performed Result Body Sit e 66252-USHOTMF NAIL, 6 OR MORE 04/19/2025 N/A 84621-Mqbn Destruction, 1-14 04/19/2025 N/A 93533-SHBW SKIN LESIONS, OVER 4 04/19/2025 N/A Encounters Encounter Location Date Provider Diagnosis [facility] [address] [place] [address] 04/19/2025 Aria Dodd Other hammer toe(s) (acquired), right foot M20.41 ; Type 2 diabetes mellitus with diabetic polyneuropathy E11.42 ; Other hammer toe(s) (acquired), left foot M20.42 ; Verruca pedis B07.0 ; Left foot pain M79.672 ; Onychomycosis B35.1 ; Diabetic Charcot's foot E11.610 ; Charcot's joint of right foot M14.671 ; Foot pain, right M79.671 and Bulla R23.8 [facility] [address] [place] [address] 04/19/2025 Aria Dodd Assessments Encounter Date Diagnosis (ICD Code) Assessment Notes Treatment Notes Treatment Clinical Notes Section Notes 04/19/2025 Other hammer toe(s) (acquired), right foot (ICD-10 - M20.41) Patient Educated with: DIABETIC FOOT CARE INSTRUCTIONS. pdf (DIABETIC FOOT CARE INSTRUCTIONS. pdf) 04/19/2025 Type 2 diabetes mellitus with diabetic polyneuropathy (ICD-10 - E11.42) 04/19/2025 Other hammer toe(s) (acquired), left foot (ICD-10 - M20.42) 04/19/2025 Verruca pedis (ICD-10 - B07.0) 04/19/2025 Left foot pain (ICD-10 - M79.672) 04/19/2025 Onychomycosis (ICD-10 - B35.1) 04/19/2025 Diabetic Charcot's foot (ICD-10 - E11.610) 04/19/2025 Charcot's joint of right foot (ICD-10 - M14.671) 04/19/2025 Foot pain, right (ICD-10 - M79.671) 04/19/2025 Bulla (ICD-10 - R23.8) Plan Of Treatment Pending Test Test Name Order Date X ray : Foot, right 3V 09/22/2013 12001-LMWRJHE NAIL, 6 OR MORE 01/26/2014 10377-XWWZVED NAIL, 6 OR MORE 05/24/2015 54357-UFNGKRY NAIL, 6 OR MORE 04/29/2013 19973-CTEHHGA NAIL, 6 OR MORE 07/14/2013 60522-AXQAJPJ NAIL, 6 OR MORE 06/10/2015 52980-TWPIBOA NAIL, 6 OR MORE 08/02/2015 11637-PKYBHLJ NAIL, 6 OR MORE 10/11/2020 63159-HFIAJVZ NAIL, 6 OR MORE 04/11/2021 60455-VXEMFKZ NAIL, 6 OR MORE 07/18/2023 01811-DDPPBIE NAIL, 6 OR MORE 11/07/2023 29787-IBOFAFK NAIL, 6 OR MORE 02/20/2024 47693-XJSQIOM NAIL, 6 OR MORE 04/19/2025 58310-Mciy Destruction, 1-14 02/20/2024 02677-Ldsn Destruction, 1-14 04/19/2025 44892-Lhpe Destruction, 1-14 07/18/2023 97684-Qsbe Destruction, 1-14 11/07/2023 79861-Rgtl Destruction, 1-14 10/11/2020 28834-EIQG SKIN LESIONS, OVER 4 10/11/20 20 31039-XHJZ SKIN LESIONS, OVER 4 02/20/20 24 24935-AHII SKIN LESIONS, OVER 4 11/07/19 24 02070-ICAA SKIN LESIONS, OVER 4 04/11/20 21 58539-JXDO SKIN LESIONS, OVER 4 07/18/20 23 03160-QXDY SKIN LESIONS, OVER 4 04/19/20 25 26485-FTRZ SKIN LESIONS, 2 TO 4 08/02/20 15 13789-GEHE SKIN LESIONS, 2 TO 4 06/10/20 15 88421-DWGU SKIN LESIONS, 2 TO 4 04/29/20 13 97480-CLPF SKIN LESIONS, 2 TO 4 07/14/20 13 98001-AEYU SKIN LESIONS, 2 TO 4 05/24/20 15 80942-LCEV SKIN LESIONS, 2 TO 4 01/27/20 14 68352- Removal of Foreign Body, Subcut 1 50,X5267-KTG TENDON SHEATH/LIGAMENT 0 07/01/201512659,C3336-BIY TENDON SHEATH/LIGAMENT 0 07/17/201318358,N0569-ABT TENDON SHEATH/LIGAMENT 1 50,S2555-GZU TENDON SHEATH/LIGAMENT 1 Next Appt Details Provider Name:Aria Dodd , 07/26/2025 01:00:00 PM, [address] [facility], [place], [address], Insurance Providers Payer Name Payer Address Payer Phone Subscriber Number Group Number Insured Name Patient Relationship to Insured Coverage Start Date Coverage End Date [employer] [place] [employer] [address] [place] [address] [id number] Evelyne Claudio Self - patient is the insured Medical (General) History Medical History History ICD Code sciatica mumps measles joint implants/screws hypercholesterolemia headaches/migraines glaucoma depression chicken pox back, hip, knee pain anxiety hypertension Arthritis - Degenerative Charcot type II diabetes rheumatoid arthritis Pulmonary embolism thyroid Reflux ( GERD) Hyperlipidemia Neuropathy Fibromyalgia Macular degeneration Poor circulation Osteomylitis Arthritis of joint of lesser toe, right M19.071 Arthritis of joint of lesser toe, left M 19.072 Unsteady gait R26.81 Surgical History Surgery Date(Month/Year) arm 2005 carpal tunnel surgery 2004 cyst removal tendon release-elbows knee replacememtn- left oral surgery bladder suspension inguinal hernia repair back surgery pilonidal cyst excision elbow sx wrist surgery spine surgery Thumb Surgery Infection removal mouth 12/2021 cervical spine 03/2022 right knee replacement 08/2022 Cervical spine surgery 02/2023 cyst removal - lower lumber 05/2023 back surgery 07/22,08/21 Hospitalization History Reason Date(Month/Year) [facility] [place] [facility] [place] [facility] [place] [facility] - right knee replacement 08/2022 Cervical spine surgery - [facility] 03/2022 [facility] - Infection removal duncan th-shaved bone 12/2021 pneumonia sm blood clot 07/09-
--- OUTSIDE RECORDS SUMMARY | 2025-06-30 17:49 | XMS_ITS | Encounter Summary ---
Author Organization [facility] Address [address] [place] [address] [place] [address] Phone Care Team Providers Care Blood Bank Laboratory Technologist Name Role Phone Getachew Toscano MD Unavailable Braxton Hernandez DPM, Erik Unavailable [phone] Reason for Visit * Reason Comments Medication Refill Encounter Details Date Type Department Care Team (Late st Contact Info) Description 04/09/2025 Refill [facility] [place] [facility] [address] [facility] [address] [place] [address] Tomás Lubin, TIFFANIEC [address] [place] [address] [email or web address] Medication Refill Social History Tobacco Use Types [...] high school, GED, job training, learning the [place] language, technical skills, or developing parenting skills)? [...] Noted Time PHQ-9 Depression Total Score: 15 08/29/2 024 1:14 PM EDT PHQ-2 Depression Total Score: 3 06/25/20 24 1:14 PM EDT documented as of this encounter Care Teams Blood Bank Laboratory Technologist Relationship Specialty Start Date End Date Getachew Toscano MD [address] [place] [phone] Internal Medicine 02/17/20 Jun Limon DPM [address] [place] [address] Podiatry 10/04/20 documented as of this encounter Additional Source Comments The information contained in this document represents components of the legal health record. It is not the complete legal health record.[facility]
== END 2025-06-30 16:00 | disposition home or self-care (01) ==
LOC: HO.HMGCX 15:59
DX: R22.41 Localized swelling, mass and lump, right lower limb (principal)
CPT/HCPCS: 76882

== ENCOUNTER 2025-07-23 13:49 | Outpatient (AMB) | payer MEDICARE, SELFPAY ==
--- OUTSIDE RECORDS SUMMARY | 2024-06-08 07:15 | XMS_ITS ---
Author Organization [facility] Address [address] [place] [address] Care Team Providers Care Optical Instrument Inspector Name Role Phone Lilo Davis Primary Care Provider Unavailab yojana Dodd Aria Unavailable [phone] Encounters Encounter Location Date Provider Diagnosis [address] [address] 06/08/2024 Aria Yousif Plan Of Treatment Next Appt Details Provider Name:Aria Arnold Yousif , 07/26/2025 01:00:00 PM, [address] [place] [address], [phone], Provider Name:Aria Dodd , 09/09/2025 10:45:00 AM, [address] [place] [address], [phone], Progress Notes * Evelyne CLAUDIO MDOB: (64 yo F)Acc No.[id number]:06/08/2024 Progress Note Patient: Evelyne HAYWARD Provider: Leanne Dodd DPM :1960 A ge:63 Y S ex:Female Date:06/08/2024 Address:[address] [place] [address] Grace Dutton [id number] Pcp:Lilo Davis Subjective: * Chief Complaints: * * Medical History: Objective: * Vitals: Assessment: Plan: * Treatment: * Images: * The named appointment provid er may or may not be the originator of this progress note, and it is not deemed complete until electronically signed by the appointment provider. Sign off status: Pending * Provider: Leanne Dodd DPM Date: 06/08/2024 Generated for Rehan sullivan/Wali/Elba on: 07/23/2025 03:00 PM EDT
[2025-07-23 13:58] VITALS: BP 124/82; PULSE 97; TEMP 36.3; O2SAT 93; BMI 30.9
--- NOTE | 2025-07-23 13:58 | A.OFFPC_ITS ---
Vital Signs 07/23/25 13:58 Height 5 ft 4 in Weight 179 lb 14.355 oz BMI 30.9 BP 124/82 Blood Pressure Location Lt brachial Position Sitting Pulse 97 Pulse Source Pulse Oximeter Temp 97.3 F Temp Source Temporal Artery Scan Pulse Oximetry (%) 93 Oxygen Delivery Method Room Air Intake Visit Reasons: med f/u Allergies lisinopril Allergy (Intermediate, Verified 07/23/25 14:17) Swelling aripiprazole (From ABILIFY) Adverse Reaction (Intermediate, Verified 07/23/25 14:17) EDEMA duloxetine (From CYMBALTA) Adverse Reaction (Intermediate, Verified 07/23/25 14:17) WT GAIN/EDEMA Medication List - Last Reconciled 07/23/25 by Lilo Davis PA-C acetaminophen 1,000 mg PO TID PRN albuterol sulfate 90 mcg/actuation 1 puff inhalation Q4H baclofen 10 mg PO TID PRN 30 days blood sugar diagnostic (FreeStyle Lite Strips) bupropion HCl XL 300 mg PO DAILY cholecalciferol (vitamin D3) (Vitamin D3) 25 mcg PO DAILY [Diabetic shoe with inserts As directed] docusate sodium 100 mg PO BID furosemide 40 mg (2 x 20 mg) PO DAILY hydroxychloroquine 200 mg PO BID 90 days ibuprofen 600 mg PO Q8H PRN levothyroxine 88 mcg PO DAILY@0600 magnesium oxide 400 mg PO BEDTIME multivitamin 1 tab PO DAILY omeprazole 20 mg PO DAILY@0630 oxybutynin chloride ER 10 mg PO DAILY oxycodone 10 mg PO TID PRN 28 days oxycodone ER (OxyContin) 15 mg PO BID PRN pregabalin 75 mg PO BID@0800,1200 30 days pregabalin 150 mg PO BEDTIME simvastatin 20 mg PO BEDTIME sulfasalazine 1 g (2 x 500 mg) PO BID 90 days NS trazodone 75 mg PO BEDTIME venlafaxine ER 150 mg PO DAILY Tobacco use date assessed: 07/23/25 Dental Screening Dental Screen Date: 07/23/25 Did you have a dental visit in the last 12 months?: No Did you have a dental problem in the last 6 months where you did not have access to dental care?: No Was dental information given to patient?: Patient has dentist HPI med f/u HPI Details 64-year-old female with past medical his tory of peripheral vascular di sease, chronic bronchitis, rheumatoid arthritis, post-laminectomy syndrome, nicotine dependence last seen 05/2025 coming in for follow up. Presenting with chronic pain management and respiratory symptoms. The patient had a CAT scan in early May to ensure pneumonia had cleared, with another scan scheduled along with blood work before a follow-up with the surgeon. The patient reports significant pain, particularly when not taking prescribed medications, which affects her ability to perform daily activities such as walking and housekeeping. The patient reports experiencing severe headaches related to back pain, particularly when not on medication. The patient experiences sleep disturbances, including restless legs and inability to sleep without medication. [facility] Medical History Mass of right thigh Diabetes History of pulmonary embolism Nicotine dependence, cigarettes, uncomplicated Overactive bladder Thyroid disease Elevated cholesterol Spinal stenosis Anxiety Depression HTN (hypertension) Constipation GERD (gastroesophageal reflux disease) Long-term use of hydroxychloroquine Alcohol abuse Chronic bronchitis Seronegative rheumatoid arthritis Pilonidal cyst Neuropathy Carpal tunnel syndrome Rheumatoid arthritis Osteomyelitis Osteoarthritis Pleurisy Surgical History History of thoracic spinal fusion Hx of cervical spine surgery History of elbow surgery H/O colonoscopy History of total right knee replacement (TKR) H/O hernia repair History of surgery on arm History of left knee replacement (~2017) Previous back surgery (~2015) Family History Mother CHF (congestive heart failure) Stroke Uterine cancer Father CHF (congestive heart failure) Sister Diabetes Brother Diabetes Pulmonary embolism Other Mental health disorder Substance use disorder Social History Household Members: Significant Other Housing: Apartment Are you a primary professional healthcare representative to a significant other at home: No Do you presently have visiting nurse or other home services: No Alcohol intake: current Alcohol intake frequency: 3 or more drinks per day Alcohol type: hard liquor Patient Tobacco Use Status: Current everyday Tobacco user Tobacco use type: Cigarette Cigarettes Per Day: 15 Years Smoked: 40 e-Cigarette/Vaping Use: Never Used Second Hand Smoke Exposure: Yes Substance Use Type: Marijuana Advance Directives Date on File: 05/10/25 service: No Current occupational status: unemployed Cognitive needs: Yes (walker, cane) Hearing needs: No Vision needs: Yes (Reading glasses) Questionnaire PHQ-9 Over the last 2 weeks, how often have you been bothered by any of the following problems? 1. Little interest or pleasure in doing things: several days 2. Feeling down, depressed, or hopeless: several days 3. Trouble falling or staying asleep, or sleeping too much: several days 4. Feeling tired or having little energy: several days 5. Poor appetite or overeating: several days 6. Feeling bad about yourself - or that you are a failure or have let yourself or your family down: several days 7. Trouble concentrating on things, such as reading the newspaper or watching television: several days 8. Moving or speaking so slowly that other people could have noticed. Or the opposite - being so fidgety or restless that you have been moving around a lot more than usual: more than half the days 9. Thoughts that you would be better off or of hurting yourself in some way: not at all Total score: 9 Depression Screening Interpretation: Positive Depression Screening Follow-up: Existing condition and In treatment Depression Screening Done: Yes Source: Developed by Drs. Giovanni Castelan, Teri Garcia, Erlin [place] and colleagues, with an educational bill from [employer]. Thrive Questionnaire Date Thrive assessed: 01/22/25 I am a: Patient What is your living situation today?: I have a steady place to live Within the past 12 months, did the food you bought not last and you didn't have the money to get more?: Never true Within the past 12 months, did you worry whether your food would run out before you got money to buy more?: Never true Do you have trouble paying for medicines?: No Do you have trouble getting transportation to medical appointments?: No Do you have trouble paying your heating and electricity bill?: No Do you have trouble taking care of your child, family member or friend?: Yes Do you have trouble with day-to-day activities such as bathing, preparing meals, shopping, managing finances, etc.?: Yes Are you currently unemployed and looking for a job?: No Are you interested in more education?: No Please select the resources that you would like help with: None Currently or been in a relationship where the following occur: No concerns reported THRIVE Score: 0 AUDIT C Alcohol Use Questionnaire (AUDIT-C) 1. How often do you have a drink containing alcohol?: Never 3. How often do you have six or more drinks on one occasion?: Never Total Score: 0 VENANCIO-7 AMB Questionnaire VENANCIO-7 Date VENANCIO - 7 assessed: 06/08/25 Feeling nervous, anxious, or on edge: 0 = Not at all Not being able to stop or control worryin = Not at all Worrying too much about different things: 0 = Not at all Trouble relaxin = Not at all Being so restless that it is hard to sit still: 0 = Not at all Becoming easily annoyed or irritable: 0 = Not at all Feeling afraid as if something awful might happen: 0 = Not at all Total VENANCIO-7 score (0-4 normal; 5-9 mild; 10-14 moderate; 15-21 severe): 0 Source: Developed by Drs. Giovanni Castelan, Teri Garcia, Erlin [place] and colleagues, with an educational bill from [employer]. Review of Systems Const Denies body aches, Denies chills, Denies fever(s), Denies headache(s) and Denies poor appetite Eyes Reports no additional complaints ENT Denies dizziness and Denies headache(s) Card Denies chest pain, Denies lightheadedness and Denies dyspnea Resp Reports cough and Denies dyspnea GI Denies nausea and Denies vomiting Reports as per HPI Musc Reports as per HPI and Reports abnormal gait Skin/Breast Reports system reviewed and no additional complaints, except as documented Neuro Reports abnormal gait, Denies dizziness and Denies headache(s) Psych Reports no additional complaints Physical exam (Primary Care) Vital Signs: Last Vital Signs Temp 97.3 F 07/23/25 13:58 Pulse 97 07/23/25 13:58 BP 124/82 07/23/25 13:58 Pulse Ox 93 07/23/25 13:58 Oxygen Delivery Method Room Air 07/23/25 13:58 BMI result Body Mass Index 30.9 Tobacco/Smoking Status: Tobacco use Status Tobacco use date assessed 07/23/25 07/23/25 14:06 Patient Tobacco Use Status Current everyday Tobacco 07/23/25 14:06 Tobacco use type Cigarette 07/23/25 14:06 e-Cigarette/Vaping Use Never Used 07/23/25 14:06 PHQ-9: PHQ-9 Score PHQ-9: Total score 9 07/23/25 16:06 Depression Screening Interpretation: Positive Depression Screening Follow-up: Existing condition and In treatment Thrive Assessment: Date of Thrive Assessment Date Thrive assessed 01/22/25 07/23/25 14:06 Currently or been in a relationship where the following occur: No concerns reported Const General: cooperative, healthy appearing, comfortable and no acute distress Orientation/consciousness: patient oriented x3 HENMT Head: Yes normocephalic Ears: hearing grossly normal bilaterally General nose exam: Normal external nose present Eyes General: appearance normal, both eyes and all related structures Conjunctivae: conjunctivae normal Neck Neck: Yes full ROM and Yes no lymphadenopathy Resp Effort & Inspection: normal respiratory effort Auscultation: clear to auscultation bilaterally, no crackles, no rales, no rhonchi and no wheezes Cardio Rate: regular rate Rhythm: regular rhythm Skin General skin exam: no rashes or lesions noted Neuro General: patient oriented x3 Gait exam (Neuro): Normal gait present Extrem General: Yes normal to inspection, Yes full ROM and No edema Psych Affect: normal affect Attitude: cooperative Insight: Good insight present (Psych) Judgement: Good judgement present (Psych) Coding Level of Care Code Est Pt Level 3 (24965) Diagnoses Chronic pain syndrome G89.4 Seronegative rheumatoid arthritis M06.00 Peripheral neuropathy G62.9 Chronic bronchitis J42 Left upper lobe pneumonia J18.9 Pneumonia type: due to unspecified organism Assessment & Plan Assessment & Plan (1) Chronic pain syndrome: Code(s): G89.4 - Chronic pain syndrome Category: Medical Plan: She has been doing well with the tapering and denies any side effects except for mild headaches and occasional break through pain primarily at night. We will continue with the taper of oxycodone and OxyContin I discussed with the patient I do not recommended increase at this time as she is still on quite a bit of medication. I did however agreed to hold the taper once again for this month given her recent hospitalization and we will resume the taper next month. She is requesting for an increase in her medication which I declined as we are working to tapering down her pain medication. I will reach out to [facility] pain management to obtain an appointment for 2nd opinion. She is requesting physical therapy today which has been placed. (2) Seronegative rheumatoid arthritis: Comment: seroneg dx 2019. MTX (wasn't done due to alcohol abuse) HCQ 2019 SSZ added 07/2023 effective Code(s): M06.00 - Rheumatoid arthritis without rheumatoid factor, unspecified site Category: Medical Plan: Continue to follow with Rheumatology. (3) Peripheral neuropathy: Code(s): G62.9 - Polyneuropathy, unspecified Category: Medical Plan: Continue on current dose of pregabalin as she finds this increased dose has been more helpful. (4) Chronic bronchitis: Comment: She has recurrent cough due to recurrent bronchitis and this is definitely related to ongoing smoking. Has somewhat increased symptoms in the last 1 week, May have mild acute on chronic bronchitis. [place] must quit smoking . Albuterol HFa 2 puffs q 4=6 hrs PRN . Scheduled to have PFT. will recheck in 2 months . Code(s): J42 - Unspecified chronic bronchitis Category: Medical Plan: Referral was placed to pulmonology today at patient request. (5) Left upper lobe pneumonia: Code(s): J18.9 - Pneumonia, unspecified organism Category: Medical Qualifiers: Pneumonia type: due to unspecified organism Qualified Code(s): J18.9 - Pneumonia, unspecified organism Plan: She recently had a repeat chest CT which was normal and she will continue to follow with the thoracic team at [facility] and plan to obtain these notes. She reports having an additional appointment coming up next month. Plan This note was constructed using voice recognition software. While every effort has been made to ensure accuracy and reporting specialist, still areas may have been included sometimes these areas may affect the content or meeting of the given symptoms. Total time spent caring for the patient today was 20 minutes. This includes time spent before the visit reviewing the chart, time spent during the visit, and time spent after the visit and documentation. Patient was informed and verbally consented to the use of an ambient scribe for clinic note documentation during this visit. Orders: Orders PT Evaluation and Treatment Today G89.29 - Other chronic pain, M54.50 - Low back pain, unspecified, M54.9 - Dorsalgia, unspecified, M96.1 - Postlaminectomy syndrome, not elsewhere classified Referrals Pulmonology Referral J42 - Unspecified chronic bronchitis, R91.8 - Other nonspecific abnormal finding of lung field Medications: New nystatin 1 appl topical BID 30 grams 0RF Changed From baclofen 10 mg PO TID 30 days PRN 90 tabs 0RF Muscle Spasm To baclofen 10 mg PO BID 180 tabs 0RF Muscle Spasm 90 days From furosemide 40 mg (2 x 20 mg) PO DAILY 90 tabs 0RF To furosemide 40 mg (2 x 20 mg) PO DAILY 180 tabs 0RF 90 days Refilled [Diabetic shoe with inserts] As directed 1 ea 0RF E11.9 - Type 2 diabetes mellitus without complications levothyroxine 88 mcg PO DAILY@0600 90 tabs 0RF simvastatin 20 mg PO BEDTIME 90 tabs 0RF venlafaxine ER 150 mg PO DAILY 90 caps 0RF
--- OUTSIDE RECORDS SUMMARY | 2025-07-23 15:00 | XMS_ITS | Clinical Summary ---
Author Organization [facility] Address [address] [place] [address] Care Team Providers Care Plastic Shaper Name Role Phone Cayla Peñaloza NP Primary Care Provider [phone] Allergies Active Allergy Reactions Criticality Noted Date [...] metroNIDAZOLE (FLAGYL) 500 MG tabletIndicatio ns:Abscess of glove factory sewer space of mouth Take 1 tablet (500 mg total) by mouth 2 (two) times a day. Take with meals or food to reduce stomach upset. 44 tablet 2 Active cephalexin (KEFLEX) 500 MG capsuleIndicati ons:Abscess of glove factory sewer space of mouth Take 2 capsules (1,000 mg total) by mouth 2 (two) times a day. 88 capsule 2 Active baclofen (LIORESAL) 5 MG tabletIndicatio ns:Abscess of glove factory sewer space of mouth Take 3 tablets (15 [...] Problem Noted Date Diagnosed Date Abscess of glove factory sewer space of mouth 01/16/2022 Overview (01/16/2022): Added automatically from request for surgery [id number] Facial abscess 01/16/2022 Family History Medical History [...] patient's age to complete this topic Insurance [facility] Advance Directives * Full Code (Latest Code Status on File) Date Activated Date Inactivated Comments 01/16/2022 11:40 PM Care Teams Plastic Shaper Relationship Specialty Start Date End Date Cayla Peñaloza NP [address] [place] [id number] PCP - General Family Medicine 01/16/22
--- OUTSIDE RECORDS SUMMARY | 2025-07-23 15:01 | XMS_ITS | Clinical Summary ---
Author Organization [facility] Address [address] [place] [address] Care Team Providers Care Process Description Writer Name Role Phone Cayla Peñaloza NP Primary Care Provider [phone] Social History Tobacco Use Types Packs/Day Years [...] age to complete this topic Care Teams Process Description Writer Relationship Specialty Start Date End Date Cayla Peñaloza, [employer]OCI[employer] [address] [facility] [id number] PCP - General Family Medicine 03/20/19
--- OUTSIDE RECORDS SUMMARY | 2025-07-23 15:01 | XMS_ITS | Patient Health Record ---
Author Organization [facility] Address [address] [place] [address] Care Team Providers Care Medical Record Librarian Name Role Phone Lilo Davis Primary Care Provider Unavailab dial Aria Dodd Unavailable [phone] Allergies Allergen (clinical drug ingredient) Drug/Non Drug [...] Problem Acquired hammer toe of right foot (3366195954407440 ) Other hammer toe(s) (acquired), right foot (M20.41) Active confirmed Problem Acquired hammer toe of left foot (0188354792213476 ) Other hammer toe(s) (acquired), left foot (M20.42) Active confirmed Problem Polyneuropathy due to type 2 diabetes mellitus (547641985) Type 2 diabetes mellitus with diabetic polyneuropathy (E11.42) Active confirmed Problem Smoker (39415510) Smoker (F17.200) Active confi rmed Problem Arthropathy associated with a neurological disorder (90712577) Charcot's joint of right foot (M14.671) Active confirmed Problem Diabetic neuropathic arthropathy (972821032) Diabetic Charcot's foot (E11.610) Active confirmed Vital Signs Blood pressure diastolic 63 mm Hg 04/19/2025 Height 5ft3in in 04/19/2025 Blood pressure systolic 120 mm Hg 04/19/2025 Weight 195 lbs 04/19/2025 BMI 34.54 kg/m2 04/19/2025 Procedures Procedure Date Ordered Date Performed Result Body Sit e 88116-GZUOVIS NAIL, 6 OR MORE 04/19/2025 N/A 57992-Akfg Destruction, 1-14 04/19/2025 N/A 88403-EYOJ SKIN LESIONS, OVER 4 04/19/2025 N/A Encounters Encounter Location Date Provider Diagnosis [facility] [address] [place] [address] 04/19/2025 Aria Dodd Other hammer toe(s) (acquired), right foot M20.41 ; Type 2 diabetes mellitus with diabetic polyneuropathy E11.42 ; Other hammer toe(s) (acquired), left foot M20.42 ; Verruca pedis B07.0 ; Left foot pain M79.672 ; Onychomycosis B35.1 ; Diabetic Charcot's foot E11.610 ; Charcot's joint of right foot M14.671 ; Foot pain, right M79.671 and Bulla R23.8 [facility] [address] [place] [address] 04/19/2025 Aria Dodd Assessments Encounter Date Diagnosis [...] X ray : Foot, right 3V 09/22/2013 11573-KSLRLCP NAIL, 6 OR MORE 01/26/2014 67061-QRTZNAH NAIL, 6 OR MORE 05/24/2015 91223-LHLBCGU NAIL, 6 OR MORE 04/29/2013 11963-SIXEBQH NAIL, 6 OR MORE 07/14/2013 03280-AGTMLLP NAIL, 6 OR MORE 06/10/2015 72274-IJAELZO NAIL, 6 OR MORE 08/02/2015 38935-ODPCUMH NAIL, 6 OR MORE 10/11/2020 96164-GAHZCYP NAIL, 6 OR MORE 04/11/2021 62652-RUUDDCT NAIL, 6 OR MORE 07/18/2023 19743-BTRWMMP NAIL, 6 OR MORE 11/07/2023 48920-ZOLVZQG NAIL, 6 OR MORE 02/20/2024 68306-XACMOPL NAIL, 6 OR MORE 04/19/2025 00289-Umsq Destruction, 1-14 02/20/2024 34741-Lzlf Destruction, 1-14 04/19/2025 28411-Pmzs Destruction, 1-14 07/18/2023 76939-Rbrs Destruction, 1-14 11/07/2023 69966-Sqph Destruction, 1-14 10/11/2020 81071-HILT SKIN LESIONS, OVER 4 10/11/20 20 54301-GHUH SKIN LESIONS, OVER 4 02/20/20 24 95652-WBIC SKIN LESIONS, OVER 4 11/07/19 24 73373-WEAL SKIN LESIONS, OVER 4 04/11/20 21 60604-WVSY SKIN LESIONS, OVER 4 07/18/20 23 48693-EMHH SKIN LESIONS, OVER 4 04/19/20 25 51964-ROLK SKIN LESIONS, 2 TO 4 08/02/20 15 26096-ISZK SKIN LESIONS, 2 TO 4 06/10/20 15 88923-ASPO SKIN LESIONS, 2 TO 4 04/29/20 13 65409-MXBQ SKIN LESIONS, 2 TO 4 07/14/20 13 79262-DYAU SKIN LESIONS, 2 TO 4 05/24/20 15 52934-XDBK SKIN LESIONS, 2 TO 4 01/27/20 14 94365- Removal of Foreign Body, Subcut 1 50,J1644-TXN TENDON SHEATH/LIGAMENT 0 07/01/201518573,R1143-FEY TENDON SHEATH/LIGAMENT 0 07/17/201353540,J3839-GRC TENDON SHEATH/LIGAMENT 1 50,P3392-HSH TENDON SHEATH/LIGAMENT 1 Next Appt Details Provider Name:Aria Dodd , 07/26/2025 01:00:00 PM, [address] [facility] [place], [place], [address], Provider Name:Aria Dodd , 09/09/2025 10:45:00 AM, [address] [place], [address], Insurance Providers Payer Name Payer Address Payer Phone Subscriber Number Group Number Insured Name Patient Relationship to Insured Coverage Start Date Coverage End Date [employer]age [address] [place] [address] [id number] Evelyne Claudio Self - patient is the [...] Date(Month/Year) [facility] - Cervical spine surgery 02/2023 [facility] [place] - [employer] 11/2022 [facility] - right knee replacement 08/2022 Cervical spine surgery - [facility] 03/2022 [facility] - Infection removal [place] th-shaved bone 12/2021 pneumonia sm blood clot 07/09-
--- OUTSIDE RECORDS SUMMARY | 2025-07-23 15:01 | XMS_ITS | Clinical Summary ---
Author Organization [facility] Address [address] [place] [address] Phone Care Team Providers Care Clinical Physician Assistant Name Role Phone Lilo Davis Primary Care Provider [phone] Allergies Active Allergy Reactions Criticality Noted Date [...] getting referral to cardiology Dr. Taylor at [facility]. She has history [...] answered. Cervical cord compression wi th myelopathy ([facility] V24, 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 V24, [facility] V28) 04/20/2020 Overview (08/31/2024): Last Assessment & Plan: Managed by rheumatology, taking hydroxychloroquine and sulfasalazine Pyogenic inflammation of bone ([facility] V24, 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 V24, [facility] V28) 10/17/2017 Overview (08/31/2024): Last Assessment & Plan: Labs as ordered for treatment evaluation, she notes very sedentary lifestyle Status post total left knee replacement 10/17/20 17 Depression, major, recurrent , in partial remission ([facility] V24) 06/02/2015 Major depressive disorder, r ecurrent episode, in partial remission ([facility] V24) 06/18/2013 Opioid type dependence ([facility] V24, [facility] V28 ) 05/21/2013 Overview (08/31/2024): IMO update Alcohol abuse 04/03/2012 Back pain 04/03/2012 DJD (degenerative joint disease) of knee 012 Hypercholesteremia 04/03/2012 Hypertension 04/03/2012 Obesity 04/03/2012 Tobacco dependence 04/03/2012 Encounters Date Type Department Care Team Description 05/24/2025 Telephone Orthopedic Surgery [facility] [address] [phone] Yuli Rivers 05/17/2025 Telephone Orthopedic Surgery [facility] [address] [phone] Kasia Castillo 05/12/2025 Telephone Orthopedic Surgery [facility] [address] [address] Kasia Castillo from Last 3 Months Immunizations Name Administration [...] mellitus type 2, co ntrolled, with complications ([facility] V24, [facility] V28) DX:Diabetes mellitus type 2, controlled, with complications ([facility]) Esophageal reflux DX:Esophageal reflux Anxiety state DX:Anxiety state Depressive disorder DX:Depressiv e disorder Hyperlipidemia DX:Hyperlipidemi a Essential hypertension DX:Essent ial hypertension Rheumatoid arthritis (CMS/ C V24, [facility] V28) DX:Rheumatoid arthritis ([facility] ); COMMENT: Severe in the [...] - Risk 60-74 years 1-dose series) 2022 Diabetes: Annual Urine Albumin-Creatinine Ratio (uACR) 08/10/2024 11/29/2022, 07/21/2019, 07/29/2018 Diabetes: Blood Sugar Control Test (HGBA1C) 08/10/2024 12/04/2023 Depression Screening 10/28/2024 09/22/2024 Diabetes: Annual GFR (Glomerular Filtration Rate) 12/04/2024 12/04/2023, 12/04/2023, 02/18/2023, Additional history exists Hypertension/CHF/CAD Annual BMP Blood Test 12/04/2024 12/04/2023, 12/04/2023, 02/18/2023, Additional history exists COVID-19 Vaccine ( season) 2025 03/14/2022, 08/23/2021, 02/03/2021, Additional history exists Influenza Vaccine (#1) 2025 [...] week 4 Care Plan Impaired Tissue No Chester Sandra E, sales specialist volume breakdown reduced by X% by week [...] Dodson RN Medical Devices Implanted Type Area Carpenter Maintenance Device Identifier Shelf Expiration Date Model / Serial / Lot Joints Knee Joints Knee Bilateral : Knee Procedures Procedure Name Priority Date/Time Associated Diagnosis Comments ANNUAL BMP BLOOD TEST Routine 12/04/2023 HEMOGLOBIN A1C Routine 12/04/2023 LIPID PANEL Routine 12/04/2023 from Last 3 Months or Most Recently Relevant to Health Maintenance Results * Annual BMP Blood Test (12/04/2023) Pathologist [facility] Annual BMP Blood Test Abstarcted Historical Provider HEALTH MAINTENANCE Final Result * Hemoglobin A1c (12/04/2023) Pathologist [facility] Hemoglobin A1C 0.0 % Comment:No Interpretation, A bstracted Blood Venous blood specimen / Unknown Historical Provider LAB BLOOD ORDERABLES Madelaine l Result * Lipid panel (12/04/2023) [facility] LDL/HDL Ratio 0 Comment:No Interpretation, A [...] HE[employer] [place] MED[employer]VANTAGE Care Teams Clinical Physician Assistant Relationship Specialty Start Date End Date Lilo Davis PA [address] [facility], [address] [place] [address] PCP - General 02/01/25
--- OUTSIDE RECORDS SUMMARY | 2025-07-23 15:01 | XMS_ITS | Patient Health Record ---
Author Organization [facility] Address [address] [place] [address] Care Team Providers Care Electric Range Preparer Name Role Phone Anabela CANTRELL, Cayla Primary [...] Problem Status W/U Status Risk Notes Problem 760814444 Colon cancer screening (Z12.11) Active confirmed Problem 659095536 Personal history of colonic polyps (Z86.010) Active confirmed Problem 46725723 Drug-induced constipation (K59.03) Active confirmed Problem 893855979 Gastroesophageal reflux disease, unspecified whether esophagitis present (K21.9) Active confirmed Plan Of Treatment Future Test Test Name Order Date COLONOSCOPY 11/04/2014 COLONOSCOPY 11/27/2023 Insurance Providers Payer Name Payer Address Payer Phone Subscriber Number Group Number Insured Name Patient Relationship to Insured Coverage Start Date Coverage End Date [facility] [address] [place] [phone] [id number] BEAR KRAUSE Self - patient is the [...]
== END 2025-07-23 14:57 | disposition home or self-care (01) ==
LOC: HO.HMCH 13:50
DX: G89.4 Chronic pain syndrome (principal); M06.00 Rheumatoid arthritis without rheumatoid factor, unspecified site; G62.9 Polyneuropathy, unspecified; J42 Unspecified chronic bronchitis; J18.9 Pneumonia, unspecified organism

== ENCOUNTER → 2025-07-23 13:49 | Outpatient (BNVA) | payer MEDICARE, SELFPAY | DX: G89.4 Chronic pain syndrome (principal); M06.00 Rheumatoid arthritis without rheumatoid factor, unspecified site; G62.9 Polyneuropathy, unspecified; J42 Unspecified chronic bronchitis; J18.9 Pneumonia, unspecified organism; M54.50 Low back pain, unspecified; M96.1 Postlaminectomy syndrome, not elsewhere classified; R91.8 Other nonspecific abnormal finding of lung field | CPT/HCPCS: 96127; 99212 ==

== ENCOUNTER 2025-07-27 15:23 | Outpatient (REF) | payer MEDICARE, SELFPAY ==
--- NOTE | ~2025-07-27 | XR_ITS ---
EXAMINATION: XR CHEST CLINICAL INFORMATION: R07.9 - Chest pain, unspecified COMPARISON: May 13, 2025 TECHNIQUE: 2 views of the chest were obtained. FINDINGS: There is a small right pleural effusion with compressive atelectasis. There is minimal linear and patchy density in the left lower lung zone. Lungs clear otherwise. Heart size is within normal limits. XR/XR chest 2V IMPRESSION: Small right pleural effusion and compressive atelectasis. Probable trace left pleural effusion. Linear and vague patchy density in the left lung base likely represents atelectasis though an early developing pneumonia is not ruled out. Electronically signed by: Dean Schmitz MD 07/27/2025 04:43 PM EDT RP
== END 2025-07-27 15:24 | disposition home or self-care (01) ==
LOC: HO.XRAY 15:23
PROVIDERS: Visit Provider Internal Medicine
DX: R07.9 Chest pain, unspecified (principal); J18.9 Pneumonia, unspecified organism; Z79.2 Long term (current) use of antibiotics; Z79.890 Hormone replacement therapy; Z79.891 Long term (current) use of opiate analgesic; Z79.899 Other long term (current) drug therapy
CPT/HCPCS: 71046; 99212

== ENCOUNTER 2025-07-27 15:23 | Outpatient (AMB) | payer MEDICARE, SELFPAY ==
--- OUTSIDE RECORDS SUMMARY | 2024-06-08 07:15 | XMS_ITS ---
Author Organization [facility] Address [address] [place] [address] Care Team Providers Care Treasurer Name Role Phone Lilo Davis Primary Care Provider Unavailab Aria Garcia [phone] Encounters Encounter Location Date Provider Diagnosis [facility] [address] [place] [address] 06/08/2024 Aria Dodd Plan Of Treatment Next Appt Details Provider Name:Aria A Yousif , 09/09/2025 10:45:00 AM, [address] [place], [address], Progress Notes * Evelyne CLAUDIO MDOB: (64 yo F)Acc No.[id number]:06/08/2024 Progress Note Patient: Evelyne HAYWARD Provider: Leanne Dodd DPM :1960 A ge:63 Y S ex:Female Date:06/08/2024 Address:[address] [place], [place] [address], [id number] Pcp:Lilo Davis Subjective: * Chief Complaints: * [...] 06/08/2024 Generated for Rehan sullivan/Wali/Elba on: 0 07/27/2025 04:39 PM EDT
--- OUTSIDE RECORDS SUMMARY | 2025-07-26 09:00 | XMS_ITS ---
Author Organization [facility] Address [address] [place] [address] Care Team Providers Care Carton Wrapper Name Role Phone Lilo Davis Primary Care Provider Unavailab Aria Garcia Unavailable [phone] Malone Encounters Encounter Location Date Provider Diagnosis [address] [address] 07/26/2025 Aria Dodd Plan Of Treatment Next Appt Details Provider Name:Aria Dodd , 09/09/2025 10:45:00 AM, [address] [place] [address], [phone], Progress Notes * Evelyne CLAUDIO MDOB: (64 yo F)Acc No.[id number]:07/26/2025 Progress Note Patient: Evelyne HAYWARD Provider: Leanne Dodd DPM :1960 A ge:64 Y S ex:Female Date:07/26/2025 Address:[address] [place], [place] [id number] Pcp:Lilo Davis Subjective: * Chief Complaints: * [...] 0 07/26/2025 Generated for Rehan sullivan/Wali/Elba on: 07/27/2025 04:39 PM EDT
[2025-07-27 15:25] VITALS: BP 128/68; PULSE 94; RESP 18; TEMP 36.4; O2SAT 94; BMI 30.9
--- NOTE | 2025-07-27 15:25 | A.OFFPC_ITS ---
Vital Signs 07/27/25 15:25 Height 5 ft 4 in Weight 180 lb 4 oz BMI 30.9 BP 128/68 Blood Pressure Location Lt brachial Position Sitting Respiration 18 Pulse 94 Pulse Source Pulse Oximeter Temp 97.5 F Temp Source Temporal Artery Scan Pulse Oximetry (%) 94 Oxygen Delivery Method Room Air Intake Visit Reasons: has a very bad cough and thinks she has pneumonia Club Attendant Required: No County Auditor: Not Required per policy Accompanied by: Self / Same As Patient Allergies lisinopril Allergy (Intermediate, Verified 07/27/25 15:47) Swelling aripiprazole (From ABILIFY) Adverse Reaction (Intermediate, Verified 07/27/25 15:47) EDEMA duloxetine (From CYMBALTA) Adverse Reaction (Intermediate, Verified 07/27/25 15:47) WT GAIN/EDEMA Medication List - Last Reconciled 07/27/25 by Grey Dueñas MD acetaminophen 1,000 mg PO TID PRN albuterol sulfate 90 mcg/actuation 1 puff inhalation Q4H azithromycin For 250 mg dose pack: take 500 mg today (day 1), then 250 mg for 4 days (days 2-5) PO baclofen 10 mg PO BID 90 days blood sugar diagnostic (FreeStyle Lite Strips) bupropion HCl XL 300 mg PO DAILY cholecalciferol (vitamin D3) (Vitamin D3) 25 mcg PO DAILY [Diabetic shoe with inserts As directed] docusate sodium 100 mg PO BID furosemide 40 mg (2 x 20 mg) PO DAILY 90 days hydroxychloroquine 200 mg PO BID 90 days ibuprofen 600 mg PO Q8H PRN levothyroxine 88 mcg PO DAILY@0600 magnesium oxide 400 mg PO BEDTIME multivitamin 1 tab PO DAILY nystatin 1 appl topical BID omeprazole 20 mg PO DAILY@0630 oxybutynin chloride ER 10 mg PO DAILY oxycodone 10 mg PO TID PRN 28 days oxycodone ER (OxyContin) 15 mg PO BID PRN pregabalin 75 mg PO BID@0800,1200 30 days pregabalin 150 mg PO BEDTIME simvastatin 20 mg PO BEDTIME sulfasalazine 1 g (2 x 500 mg) PO BID 90 days NS trazodone 75 mg PO BEDTIME venlafaxine ER 150 mg PO DAILY Tobacco use date assessed: 07/23/25 Dental Screening Dental Screen Date: 07/23/25 HPI HPI Comments History of Present Illness Details The patient is a 64-year-old female presenting with concerns of recurrent pneumonia. She was previously hospitalized for pneumonia, requiring chest tubes and intubation due to severe respiratory distress. Currently, she reports a productive cough with white sputum, fatigue, and dyspnea, particularly after waking and with exertion. The pain is now on the right side, extending to the back. The patient has a history of smoking, currently smoking three cigarettes a day, and has attempted cessation multiple times. She experiences significant fatigue and shortness of breath with minimal exertion. [facility] Medical History Mass of right thigh Diabetes History of pulmonary embolism Nicotine dependence, cigarettes, uncomplicated Overactive bladder Thyroid disease Elevated cholesterol Spinal stenosis Anxiety Depression HTN (hypertension) Constipation GERD (gastroesophageal reflux disease) Long-term use of hydroxychloroquine Alcohol abuse Chronic bronchitis Seronegative rheumatoid arthritis Pilonidal cyst Neuropathy Carpal tunnel syndrome Rheumatoid arthritis Osteomyelitis Osteoarthritis Pleurisy Surgical History History of thoracic spinal fusion Hx of cervical spine surgery History of elbow surgery H/O colonoscopy History of total right knee replacement (TKR) H/O hernia repair History of surgery on arm History of left knee replacement (~2017) Previous back surgery (~2016) Family History Mother CHF (congestive heart failure) Stroke Uterine cancer Father CHF (congestive heart failure) Sister Diabetes Brother Diabetes Pulmonary embolism Other Mental health disorder Substance use disorder Social History Household Members: Significant Other Housing: Apartment Are you a primary respiratory care assistant to a significant other at home: No Do you presently have visiting nurse or other home services: No Alcohol intake: current Alcohol intake frequency: 3 or more drinks per day Alcohol type: hard liquor Patient Tobacco Use Status: Current everyday Tobacco user Tobacco use type: Cigarette Cigarettes Per Day: 15 Years Smoked: 40 Packs per year/per ci.00 e-Cigarette/Vaping Use: Never Used Second Hand Smoke Exposure: Yes Substance Use Type: Marijuana Advance Directives Date on File: 05/10/25 service: No Current occupational status: unemployed Cognitive needs: Yes (walker, cane) Hearing needs: No Vision needs: Yes (Reading glasses) Questionnaire Thrive Questionnaire Date Thrive assessed: 01/22/25 I am a: Patient What is your living situation today?: I have a steady place to live Within the past 12 months, did the food you bought not last and you didn't have the money to get more?: Never true Within the past 12 months, did you worry whether your food would run out before you got money to buy more?: Never true Do you have trouble paying for medicines?: No Do you have trouble getting transportation to medical appointments?: No Do you have trouble paying your heating and electricity bill?: No Do you have trouble taking care of your child, family member or friend?: Yes Do you have trouble with day-to-day activities such as bathing, preparing meals, shopping, managing finances, etc.?: Yes Are you currently unemployed and looking for a job?: No Are you interested in more education?: No Please select the resources that you would like help with: None Currently or been in a relationship where the following occur: No concerns reported THRIVE Score: 0 VENANCIO-7 AMB Questionnaire VENANCIO-7 Date VENANCIO - 7 assessed: 06/08/25 Source: Developed by Drs. Giovanni Castelan, Teri Garcia, Erlin Houston and colleagues, with an educational bill from [employer]. Review of Systems Const Details: Positives besides what was mentioned in HPI are in BOLD Constitutional: No Weight Change, No Fever, No Chills, No Night Sweats, No Fatigue, No Malaise ENT/Mouth: No Hearing Changes, No Ear Pain, No Nasal Congestion, No Sinus Pain, No Hoarseness, No sore throat, No Rhinorrhea, No Swallowing Difficulty Eyes: No Eye Pain, No Swelling, No Redness, No Foreign Body, No Discharge, No Vision Changes Cardiovascular: No Chest Pain, No SOB, No PND, No Dyspnea on Exertion, No Orthopnea, No Claudication, No Edema, No Palpitations Respiratory: No Cough, No Sputum, No Wheezing, No Smoke Exposure, No Dyspnea Gastrointestinal: No Nausea, No Vomiting, No Diarrhea, No Constipation, No Pain, No Heartburn, No Anorexia, No Dysphagia, No Hematochezia, No Melena, No Flatulence, No Jaundice Genitourinary: No Dysmenorrhea, No DUB, No Dyspareunia, No Dysuria, No Urinary Frequency, No Hematuria, No Urinary Incontinence, No Urgency, No Flank Pain, No Urinary Flow Changes, No Hesitancy Musculoskeletal: No Arthralgias, No Myalgias, No Joint Swelling, No Joint Stiffness, No Back Pain, No Neck Pain, No Injury History Skin: No Skin Lesions, No Pruritis, No Hair Changes, No Breast/Skin Changes, No Nipple Discharge Neuro: No Weakness, No Numbness, No Paresthesias, No Loss of Consciousness, No Syncope, No Dizziness, No Headache, No Coordination Changes, No Recent Falls Psych: No Anxiety/Panic, No Depression, No Insomnia, No Personality Changes, No Delusions, No Rumination, No SI/HI/AH/VH, No Social Issues, No Memory Changes, No Violence/Abuse Hx., No Eating Concerns Heme/Lymph: No Bruising, No Bleeding, No Transfusions History, No Lymphadenopathy Endocrine: No Polyuria, No Polydipsia, No Temperature Intolerance Physical exam (Primary Care) Vital Signs: Last Vital Signs Temp 97.5 F 07/27/25 15:25 Pulse 94 07/27/25 15:25 Resp 18 07/27/25 15:25 BP 128/68 07/27/25 15:25 Pulse Ox 94 07/27/25 15:25 Oxygen Delivery Method Room Air 07/27/25 15:25 BMI result Body Mass Index 30.9 Tobacco/Smoking Status: Tobacco use Status Tobacco use date assessed 07/23/25 07/27/25 15:28 Patient Tobacco Use Status Current everyday Tobacco 07/27/25 15:28 Tobacco use type Cigarette 07/27/25 15:28 e-Cigarette/Vaping Use Never Used 07/27/25 15:28 Thrive Assessment: Date of Thrive Assessment Date Thrive assessed 01/22/25 07/27/25 15:28 Currently or been in a relationship where the following occur: No concerns reported Const Other: Pertinent findings are in BOLD GENERAL APPEARANCE NAD, activity normal for age, well developed/ well nourished, no cyanosis, pallor, or diaphoresis. EYES lids/conjunctiva normal. EARS/NOSE/THROAT Mucous membranes moist, nares normal, lips/teeth normal uvula midline without oral pharyngeal erythema, exudate or swelling TMs normal bilaterally. No lymphangitis/lymphedema. HEAD/NECK normocephalic atraumatic, no facial trauma, neck is supple. RESPIRATORY respiratory effort normal, speaks in full sentences, no tripod position, no accessory muscle use. Bilateral lower lung medina crackles. CARDIAC Regular rate and rhythm, no edema. ABDOMINAL Soft, ND/NT. No evidence of fluid wave. No pulsatile masses on exam, rebound tenderness, Lin sign or pain over Mcburney's point. MUSCLES/EXTREMITIES No abnormal range of motion, no swelling. SKIN Warm, pink and dry. No rashes, dermatoses, petechiae or lesions. NEUROLOGICAL Speech is clear and appropriate. Normal level of consciousness. Gait and coordination are normal. 5/5 strength in all extremities. PSYCH Normal mood and affect. Judgement/competence is appropriate Coding Level of Care Code Est Pt Level 4 (68924) Diagnoses Pneumonia J18.9 Time Spent (min) 30 Assessment & Plan Assessment & Plan (1) Pneumonia: Code(s): J18.9 - Pneumonia, unspecified organism Category: Medical Plan: - A chest x-ray will be obtained to evaluate lung status. - Azithromycin (Z-Jason) prescribed for five days. - Emergency care advised if symptoms worsen, especially increased dyspnea or cough. - Advised on smoking cessation. Plan I discussed with the patient the likelihood of recurrent pneumonia and the need for a chest x-ray to evaluate her current condition. We talked about starting azithromycin as a precautionary measure and the importance of seeking emergency care if her symptoms worsen. Additionally, we reviewed her smoking habits and the benefits of cessation, acknowledging her previous attempts to quit. Time spent 30 minutes This includes time spent before the visit reviewing the chart, time spent during the visit, and time spent after the visit and documentation. Orders: Orders XR chest 2V Today R07.9 - Chest pain, unspecified Medications: New azithromycin For 250 mg dose pack: take 500 mg today (day 1), then 250 mg for 4 days (days 2-5) PO 6 tabs 0RF
--- OUTSIDE RECORDS SUMMARY | 2025-07-27 16:39 | XMS_ITS | Clinical Summary ---
Author Organization [facility] Address [address] [place] [address] Care Team Providers Care Crt Name Role Phone Cayla Peñaloza NP Primary Care Provider [phone] Allergies Active Allergy Reactions Criticality Noted Date [...] metroNIDAZOLE (FLAGYL) 500 MG tabletIndicatio ns:Abscess of special forces communications sergeant space of mouth Take 1 tablet (500 mg total) by mouth 2 (two) times a day. Take with meals or food to reduce stomach upset. 44 tablet 2 Active cephalexin (KEFLEX) 500 MG capsuleIndicati ons:Abscess of special forces communications sergeant space of mouth Take 2 capsules (1,000 mg total) by mouth 2 (two) times a day. 88 capsule 2 Active baclofen (LIORESAL) 5 MG tabletIndicatio ns:Abscess of special forces communications sergeant space of mouth Take 3 tablets (15 [...] Problem Noted Date Diagnosed Date Abscess of special forces communications sergeant space of mouth 01/16/2022 Overview (01/16/2022): Added automatically from request for surgery [id number] Facial abscess 01/16/2022 Family History Medical History [...] patient's age to complete this topic Insurance [facility] Advance Directives * Full Code (Latest Code Status on File) Date Activated Date Inactivated Comments 01/16/2022 11:40 PM Care Teams Crt Relationship Specialty Start Date End Date Cayla Peñaloza NP [address] [place] [id number] PCP - General Family Medicine 01/16/22
--- OUTSIDE RECORDS SUMMARY | 2025-07-27 16:39 | XMS_ITS | Clinical Summary ---
Author Organization [facility] Address [address] [place] [address] Care Team Providers Care Neon Sign Maker Name Role Phone Cayla Peñaloza NP Primary Care Provider [phone] Social History Tobacco Use Types Packs/Day Years [...] age to complete this topic Care Teams Neon Sign Maker Relationship Specialty Start Date End Date Cayla Peñaloza, LINE ASSIGNER [address] [facility] [id number] PCP - General Family Medicine 03/20/19
--- OUTSIDE RECORDS SUMMARY | 2025-07-27 16:40 | XMS_ITS | Patient Health Record ---
Author Organization [facility] Address [address] [facility] [place] [address] Care Team Providers Care Director Of Outpatient Services Name Role Phone Lilo Davis Primary Care Provider Unavailab dial Aria Dodd Unavailable [phone] Allergies Allergen (clinical drug ingredient) Drug/Non Drug [...] Problem Acquired hammer toe of right foot (0128312754433505 ) Other hammer toe(s) (acquired), right foot (M20.41) Active confirmed Problem Acquired hammer toe of left foot (4898225690150808 ) Other hammer toe(s) (acquired), left foot (M20.42) Active confirmed Problem Polyneuropathy due to type 2 diabetes mellitus (386194695) Type 2 diabetes mellitus with diabetic polyneuropathy (E11.42) Active confirmed Problem Smoker (21614881) Smoker (F17.200) Active confi rmed Problem Arthropathy associated with a neurological disorder (61896921) Charcot's joint of right foot (M14.671) Active confirmed Problem Diabetic neuropathic arthropathy (958570442) Diabetic Charcot's foot (E11.610) Active confirmed Vital Signs Blood pressure diastolic 63 mm Hg 04/19/2025 Height 5ft3in in 04/19/2025 Blood pressure systolic 120 mm Hg 04/19/2025 Weight 195 lbs 04/19/2025 BMI 34.54 kg/m2 04/19/2025 Procedures Procedure Date Ordered Date Performed Result Body Sit e 21718-NIONMBD NAIL, 6 OR MORE 04/19/2025 N/A 72864-Biea Destruction, 1-14 04/19/2025 N/A 80055-CVXG SKIN LESIONS, OVER 4 04/19/2025 N/A Encounters Encounter Location Date Provider Diagnosis [facility] [place] [address] [place] [address] 07/26/2025 Aria Dodd [facility] [address] 04/19/2025 Aria Dodd Other hammer toe(s) (acquired), right foot M20.41 ; Type 2 diabetes mellitus with diabetic polyneuropathy E11.42 ; Other hammer toe(s) (acquired), left foot M20.42 ; Verruca pedis B07.0 ; Left foot pain M79.672 ; Onychomycosis B35.1 ; Diabetic Charcot's foot E11.610 ; Charcot's joint of right foot M14.671 ; Foot pain, right M79.671 and Bulla R23.[address] [address] 04/19/2025 Aria Dodd Assessments Encounter Date Diagnosis [...] X ray : Foot, right 3V 09/22/2013 27963-KYQKAOU NAIL, 6 OR MORE 01/26/2014 21948-YIDODTX NAIL, 6 OR MORE 05/24/2015 64750-XQVBOZZ NAIL, 6 OR MORE 04/29/2013 61124-VBSVKNN NAIL, 6 OR MORE 07/14/2013 24705-QFSQTPV NAIL, 6 OR MORE 06/10/2015 63708-YJIOAVN NAIL, 6 OR MORE 08/02/2015 38211-GROLCYL NAIL, 6 OR MORE 10/11/2020 96616-HVQGMHA NAIL, 6 OR MORE 04/11/2021 54484-ZGCUYCQ NAIL, 6 OR MORE 07/18/2023 45632-ANZDQRP NAIL, 6 OR MORE 11/07/2023 63459-GXQKKBC NAIL, 6 OR MORE 02/20/2024 44993-WSQUKXW NAIL, 6 OR MORE 04/19/2025 24703-Clky Destruction, 1-14 02/20/2024 56001-Njmw Destruction, 1-14 04/19/2025 97323-Eviu Destruction, 1-14 07/18/2023 93895-Dhwq Destruction, 1-14 11/07/2023 58048-Zxig Destruction, 1-14 10/11/2020 29050-IALQ SKIN LESIONS, OVER 4 10/11/20 20 12475-ZGGZ SKIN LESIONS, OVER 4 02/20/20 24 93148-WKKO SKIN LESIONS, OVER 4 11/07/19 24 30621-DHWJ SKIN LESIONS, OVER 4 04/11/20 21 19585-CEHU SKIN LESIONS, OVER 4 07/18/20 23 03481-RKPZ SKIN LESIONS, OVER 4 04/19/20 25 18505-UDYO SKIN LESIONS, 2 TO 4 08/02/20 15 56764-HPHM SKIN LESIONS, 2 TO 4 06/10/20 15 33624-HQXZ SKIN LESIONS, 2 TO 4 04/29/20 13 57979-GIRT SKIN LESIONS, 2 TO 4 07/14/20 13 95522-URPP SKIN LESIONS, 2 TO 4 05/24/20 15 13025-RKDB SKIN LESIONS, 2 TO 4 01/27/20 14 13199- Removal of Foreign Body, Subcut 1 50,J7861-XSV TENDON SHEATH/LIGAMENT 0 07/01/201553277,C8702-BYJ TENDON SHEATH/LIGAMENT 0 07/17/201383120,H4212-LOI TENDON SHEATH/LIGAMENT 1 50,W5131-MFZ TENDON SHEATH/LIGAMENT 1 Next Appt Details Provider Name:Aria Dodd , 09/09/2025 10:45:00 AM, [address] [facility], [place], [address], Insurance Providers Payer Name Payer Address Payer Phone Subscriber Number Group Number Insured Name Patient Relationship to Insured Coverage Start Date Coverage End Date [employer] [place] [employer] [facility] [address] [place] [address] [phone] [id number] Evelyne Claudio Self - patient is the [...] Date(Month/Year) [facility] - [facility] 02/2023 [facility] [place] [facility] 11/2022 [facility] - right knee replacement 08/2022 Cervical spine surgery - [facility] 03/2022 [facility] - Infection removal duncan th-shaved bone 12/2021 pneumonia sm blood clot 07/09-
--- OUTSIDE RECORDS SUMMARY | 2025-07-27 16:40 | XMS_ITS | Clinical Summary ---
Author Organization [facility] Address [address] [place] [address] Phone Care Team Providers Care Air Brake Tester Name Role Phone Getachew Toscano MD Unavailable Braxton Hernandez DPM, Erik Unavailable [phone] Allergies Active Allergy Reactions Criticality Noted Date Comments Aripiprazole Other (See Comments) 10/17/2017 EDEMA Amoxicillin-Pot Clavulanate Rash Low 04/03/2012 Duloxetine Other (See Comments) 10/17/2017 edema Ibuprofen Other (See Comments) 10/14/2018 Kidney failure Lisinopril Angioedema 01/22/2018 Nsaids (Non-Steroidal Anti-Inflammatory Drug) 08/26/2019 Penicillins Diarrhea 10/17/2017 Medications blood-glucose meter (FREESTYLE FREEDOM) kitIndications:Ty pe 2 diabetes mellitus with diabetic neuropathic arthropathy as directed 1 each 017 Active Additional Information Patient taking differently: As needed, as directed, Reported on 01/29/2022 lancets 28 gauge Misc 1 each 2 (two) times a day. 017 Active MULTIVITAMIN ORAL Take 1 capsule by mouth daily. Active naloxone (NARCAN) 1 mg/mL injection syringe 0.4 mL (0.4 mg total) by Nasal route once for 1 dose. For use with Mucosal Atomization Device 0.4 mL 021 Active acetaminophen (TYLENOL) 325 mg tablet Take 650 mg by mouth every 6 (six) hours as needed for mild pain. Active chlorhexidine (PERIDEX) 0.12 % solution 2 (two) times a day. Active cholecalciferol (VITAMIN D3) 25 MCG (1,000 unit) tablet Take 1,000 Units by mouth daily. Active clotrimazole-beta methasone (LOTRISONE) cream APPLY TOPICALLY TWICE DAILY TO AFFECTED AREA 45 g Active hydrOXYchloroQUIN E (PLAQUENIL) 200 mg tablet Take 1 tablet by mouth twice daily 60 tablet 023 Active FREESTYLE LITE Strp stripsIndications :Type 2 diabetes mellitus with diabetic neuropathic arthropathy 1 each by See Administration Instructions route 2 (two) times a day. 100 strip 2 023 Active sulfaSALAzine (AZULFIDINE) 500 mg tablet Take 2 tablets by mouth 2 (two) times a day. 024 Active docusate sodium (STOOL SOFTENER) 100 MG capsuleIndication s:Slow transit constipation Take 1 capsule (100 mg total) by mouth 2 (two) times a day. 180 capsule 3 024 Active traZODone (DESYREL) 50 MG tablet Take 1 tablet (50 mg total) by mouth nightly at bedtime as needed. 90 tablet 3 024 Active omeprazole (PRILOSEC) 20 MG capsule Take 1 capsule (20 mg total) by mouth every morning. 90 capsule 3 024 Active hydrOXYzine (ATARAX) 25 MG tablet TAKE ONE TABLET BY MOUTH THREE TIMES DAILY NEEDED 21 tablet 1 Active nystatin cream APPLY CREAM TOPICALLY TO AFFECTED AREA TWICE DAILY NEEDED 30 g Active cyclobenzaprine (FLEXERIL) 10 MG tablet Take 10 mg by mouth 3 (three) times a day as needed. Active ibuprofen (ADVIL,MOTRIN) 600 MG tablet Take 600 mg by mouth every 8 (eight) hours as needed for pain (specific location in comments). Active sulfamethoxazole- trimethoprim (BACTRIM DS) 800-160 mg per tablet Take 1 tablet by mouth 2 (two) times a day. Active albuterol 90 mcg/actuation inhaler INHALE 2 PUFFS BY MOUTH EVERY 6 HOURS NEEDED FOR WHEEZING 18 g 1 024 Active amLODIPine (NORVASC) 2.5 MG tablet Take 1 tablet by mouth once daily 90 tablet 025 Active venlafaxine (EFFEXOR-XR) 150 MG 24 hr capsuleIndication s:Recurrent major depressive disorder, in partial remission Take 1 capsule by mouth once daily 90 capsule 025 Active furosemide (LASIX) 20 MG tablet TAKE 1 TABLET BY MOUTH ONCE DAILY NEEDED 90 tablet 025 Active magnesium oxide 250 mg (150 mg elemental) Tab TAKE 1 TABLET BY MOUTH NIGHTLY AT BEDTIME 90 tablet 025 Active oxyCODONE (OXYCONTIN) 15 mg 12 hr tabletIndications :Lumbar radiculopathy Take 1 tablet (15 mg total) by mouth every 12 (twelve) hours for 28 days. Partial fill ok 56 tablet 025 Active levothyroxine (SYNTHROID, LEVOTHROID) 88 MCG tabletIndications :Acquired hypothyroidism TAKE 1 TABLET BY MOUTH IN THE MORNING 90 tablet 025 Active baclofen (LIORESAL) 10 MG tabletIndications :Back pain,Neck pain Take 1 tablet (10 mg total) by mouth 3 (three) times a day. 270 tablet 025 Active simvastatin (ZOCOR) 20 MG tabletIndications :Mixed hyperlipidemia Take 1 tablet (20 mg total) by mouth every evening. 90 tablet 025 Active oxyBUTYnin (DITROPAN-XL) 10 MG 24 hr tabletIndications :Overactive bladder Take 1 tablet (10 mg total) by mouth daily. 90 tablet 025 Active pregabalin (LYRICA) 75 MG capsule TAKE 1 CAPSULE(75 MG) BY MOUTH THREE TIMES DAILY 90 capsule 025 Active oxyCODONE HCl 10 mg TabIndications:Kim mbar radiculopathy Take 1 tablet (10 mg total) by mouth every 8 (eight) hours as needed (chronic pain). partial fill okay. Must last one month 84 tablet 025 Active buPROPion (WELLBUTRIN XL) 300 MG ER 24 hr tablet Take 1 tablet by mouth once daily 90 tablet 3 025 Active buPROPion (WELLBUTRIN XL) 300 MG ER 24 hr tablet Take 1 tablet by mouth once daily 90 tablet 025 2024 Discontinued Active Problems Problem Noted Date Diagnosed Date [...] use of opioids 05/21/2013 Overview (10/17/2017): Overview: [facility] update Assessment & Plan (12/11/2024 4:00 PM [...] Encounters Date Type Department Care Team Description 07/14/2025 Refill [facility] [place] [facility] [address] [facility] [place] [address] Lynda Kumar MD Medication Refill from Last 3 Months Immunizations Immunization Administration [...] high school, GED, job training, learning the Macedonian language, technical skills, or developing parenting skills)? [...] your housing situation today? I have yvonne rob 06/25/2024 How many times have you move [...] Additional history exists HEMOGLOBIN A1C 06/03/2024 12/04/2023, 02/04/2024, 08/02/2023, Additional history exists LUNG CANCER SCREENING [...] EST) TSH 2.10 0.27 - 4.20 uIU/mL [facility] Blood 12/04/2023 10:3 8 AM EST 12/04/2023 10:44 AM EST Cayla Peñaloza NP LAB BLOOD ORDERABLES Final Resu lt [address] [address] * Hemoglobin A1c (12/04/2023 10:38 AM EST) HEMOGLOBIN A1C 5.2 4.3 - 5.8 % [facility] Blood 12/04/2023 10:3 8 AM EST 12/04/2023 10:44 AM EST Cayla Peñaloza NP LAB BLOOD ORDERABLES Final Resu lt [address] [address] * HM LDCT PROCEDURE FOR RESULT ENTRY ONLY (11/25/2023 [...] HIV TEST (08/06/2019) HIV - External Neg Historical Provider LAB BLOOD ORDERABLES Madelaine l Result * Pap Smear (11/21/2018 12:00 AM EST) 11/21/2018 11/24/2018 11: 13 AM EST Narrative SEE NARRATIVE - 11/27/2018 11:12 AM EST [address] [address] Light Bulb Assembler: Laurel Pugh MD WELL LOGGER Cytology Report FINAL DIAGNOSIS A. PAP SMEAR (SUREPATH) CE: SPECIMEN ADEQUACY: Satisfactory for evaluation; transformation zone present. INTERPRETATION: NEGATIVE FOR INTRAEPITHELIAL LESION OR MALIGNANCY. Electronically Signed Out By: KADIE Edgar(ASCP) The Pap test is a screening test [...] 52, 56, 58, 59, 66, 68) by [employer] Onclarity HR-HPV analysis. Clinical correlation is advised. This HPV test was performed at [facility], [address] [place] [address]. This test has been FDA approved for SurePath cervical cytology specimens. The accuracy and precision of this test for all other specimen sources has been verified in the Cytopathology Laboratory of the [facility] and has not been cleared or approved by the U.S. Food and Drug Administration. Clinical correlation is advised. CLINICAL HISTORY Date of Last Menstrual Period: Not Provided Menstrual History: Post Menopausal Other Clinical Conditions: Screening Pap SPECIMEN SOURCE A: PAP SMEAR (SUREPATH) CE Patient Name: EVELYNE CLAUDIO : 1960 (Age: 58) Sex: F Institution: [facility] Location: [facility] Date of Collection: 11/21/2018 Date of Reported: 11/27/2018 11:12 Results to: Cayla Peñaloza MSN, BSN us Cayla Peñaloza NP CYTOLOGY ORDERABLES Final Resul t SEE NARRATIVE * Outside Hepatitis C Virus Screening (05/19/2018) Hepatitis C Screening - External Neg Historical Provider LAB BLOOD ORDERABLES Madelaine prado Result * COLONOSCOPY FOR RESULT ENTRY ONLY (02/04/2015) [facility] Colonoscopy . us Historical Provider MD HEALTH MAINTENANCE Final Result from Last 3 [...] REPLACEMENT [employer] [place] MED[employer] HMO REPLACEMENT Care Teams Air Brake Tester Relationship Specialty Start Date End Date Getachew Toscano MD [address] [place] [address] [place] [phone] Internal Medicine 02/17/20 [place] [address] Podiatry 10/04/20 Additional Source Comments The information contained in this document represents components of the legal health record. It is not the complete legal health record.[facility]
--- OUTSIDE RECORDS SUMMARY | 2025-07-27 16:40 | XMS_ITS | Encounter Summary ---
Author Organization Located [facility] Address [address] [place] [address] Phone Care Team Providers Care Canoe Inspector Final Name Role Phone Getachew Toscano MD Unavailable Braxton Hernandez DPM, Erik Unavailable Reason for Visit * Reason Comments Medication Refill Encounter Details Date Type Department Care Team (Late st Contact Info) Description 04/25/2025 Refill [facility] [place] [facility] [address] [facility] [address] [place] [address] Candice John, FAWN [address] [facility] [address] [place] [address] [email or web address] Medication Refill Social History Tobacco Use Types [...] high school, GED, job training, learning the Ghanaian language, technical skills, or developing parenting skills)? [...] documented as of this encounter Care Teams Canoe Inspector Final Relationship Specialty Start Date End Date Getachew Toscano MD [address] [place] [address] [place] [phone] Internal Medicine 02/17/20 Jun Limon DPM [address] [place] [address] Podiatry 10/04/20 documented as of this encounter Additional Source Comments The information contained in this document represents components of the legal health record. It is not the complete legal health record.[facility]
--- OUTSIDE RECORDS SUMMARY | 2025-07-27 16:40 | XMS_ITS | Encounter Summary ---
Author Organization [facility] Address [address] [facility] [facility] [address] [place] [address] Phone Care Team Providers Care Continuity Manager Name Role Phone Getachew Toscano MD Unavailable Braxton Hernandez DPM, Erik Unavailable Reason for Visit * Reason Comments Medication Refill Encounter Details Date Type Department Care Team (Late st Contact Info) Description 04/24/2025 Refill [facility] [place] [facility] [address] [facility] [address] [place] [address] Lynda Kumar MD [address] [facility] [address] [place] [address] [email or web address] Medication Refill Social History Tobacco Use Types [...] high school, GED, job training, learning the [place] Islander language, technical skills, or developing parenting skills)? [...] documented as of this encounter Care Teams Continuity Manager Relationship Specialty Start Date End Date Getachew Toscano MD [address] [place] [phone] Internal Medicine 02/17/20 Jun Limon DPM [address] [place] [address] Podiatry 10/04/20 documented as of this encounter Additional Source Comments The information contained in this document represents components of the legal health record. It is not the complete legal health record.[facility]
--- OUTSIDE RECORDS SUMMARY | 2025-07-27 16:40 | XMS_ITS | Patient Health Record ---
Author Organization [facility] Address [address] [place] [address] Care Team Providers Care Twist Tester Name Role Phone Anabela CANTRELL, Cayla Primary Care Provider Getachew De Dios Jr Unavailable [phone] Allergies Allergen (clinical drug ingredient) Drug/Non Drug [...] Problem Status W/U Status Risk Notes Problem 866474617 Colon cancer screening (Z12.11) Active confirmed Problem 238614926 Personal history of colonic polyps (Z86.010) Active confirmed Problem 34481717 Drug-induced constipation (K59.03) Active confirmed Problem 003441379 Gastroesophageal reflux disease, unspecified whether esophagitis present (K21.9) Active confirmed Plan Of Treatment Future Test Test Name Order Date COLONOSCOPY 11/04/2014 COLONOSCOPY 11/27/2023 Insurance Providers Payer Name Payer Address Payer Phone Subscriber Number Group Number Insured Name Patient Relationship to Insured Coverage Start Date Coverage End Date [facility] [address] [place] [phone] [id number] BEAR KRAUSE Self - patient is the [...]
--- OUTSIDE RECORDS SUMMARY | 2025-07-27 16:40 | XMS_ITS | Clinical Summary ---
Author Organization [address] [facility] Address [address] [place] [address] Phone Care Team Providers Care Hatch Supervisor Name Role Phone Lilo Davis Primary Care Provider [phone] Allergies Active Allergy Reactions Criticality Noted Date [...] answered. 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 ([facility] V24, [facility] V28) 04/20/2020 Overview (08/31/2024): Last Assessment & Plan: Managed by rheumatology, taking hydroxychloroquine and sulfasalazine Pyogenic inflammation of bone ([facility] V24, [facility] V28) 12/02/2019 Lichen sclerosus 07/29/2018 Slow transit [...] 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 ([facility] V24, [facility] V28) 10/17/2017 Overview (08/31/2024): Last Assessment & Plan: Labs as ordered for treatment evaluation, she notes very sedentary lifestyle Status post total left knee replacement 10/17/20 17 Depression, major, recurrent , in partial remission ([facility] V24) 06/02/2015 Major depressive disorder, r ecurrent episode, in partial remission ([facility] V24) 06/18/2013 Opioid type dependence ([facility] V24, [facility] V28 ) 05/21/2013 Overview (08/31/2024): IMO update Alcohol abuse 04/03/2012 Back pain 04/03/2012 DJD (degenerative joint disease) of knee 012 Hypercholesteremia 04/03/2012 Hypertension 04/03/2012 Obesity 04/03/2012 Tobacco dependence 04/03/2012 Encounters Date Type Department Care Team Description 05/24/2025 Telephone Orthopedic Surgery [facility] [address] [address] Yuli Rivers 05/17/2025 Telephone Orthopedic Surgery [facility] [address] [phone] Kasia Castillo 05/12/2025 Telephone Orthopedic Surgery [facility] [address] [address] Kasia Castillo from Last 3 Months Immunizations Immunization Administration Dates Next Due Influenza trivalent, 0.5mL, [...] mellitus type 2, co ntrolled, with complications (CMS/[facility] V24, [facility] V28) DX:Diabetes mellitus type 2, controlled, with complications ([facility]) Esophageal reflux DX:Esophageal reflux Anxiety state DX:Anxiety state Depressive disorder DX:Depressiv e disorder Hyperlipidemia DX:Hyperlipidemi a Essential hypertension DX:Essent ial hypertension Rheumatoid arthritis (CMS/ C V24, [facility] V28) DX:Rheumatoid arthritis ([facility] ); COMMENT: Severe in the right knee; [...] Plan Impaired Tissue No Chester Sandra E, recording clerk volume breakdown reduced by X% by week [...] Dodson RN Medical Devices Implanted Type Area Client Experience Manager Device Identifier Shelf Expiration Date Model / Serial / Lot Joints Knee Joints Knee Bilateral : Knee Procedures Procedure Name Priority Date/Time Associated Diagnosis Comments ANNUAL BMP BLOOD TEST Routine 12/04/2023 HEMOGLOBIN A1C Routine 12/04/2023 LIPID PANEL Routine 12/04/2023 from Last 3 Months or Most Recently Relevant to Health Maintenance Results * Annual BMP Blood Test (12/04/2023) Pathologist [facility] Annual BMP Blood Test Abstarcted Historical Provider HEALTH MAINTENANCE Final Result * Hemoglobin A1c (12/04/2023) Pathologist [facility] Hemoglobin A1C 0.0 % Comment:No Interpretation, A bstracted Blood Venous blood specimen / Unknown Historical Provider LAB BLOOD ORDERABLES Madelaine l Result * Lipid panel (12/04/2023) [facility] LDL/HDL Ratio 0 Comment:No Interpretation, A [...] [employer] [place] [employer] ADVANTAGE Care Teams Hatch Supervisor Relationship Specialty Start Date End Date Lilo Davis PA [address] [facility], [address] [place] [address] PCP - General 02/01/25
== END 2025-07-27 16:12 | disposition home or self-care (01) ==
LOC: HO.HMCH 15:23
PROVIDERS: Visit Provider Internal Medicine
DX: J18.9 Pneumonia, unspecified organism (principal)

== ENCOUNTER → 2025-07-27 16:24 | Outpatient (BNV) | payer MEDICARE, SELFPAY | PROVIDERS: Visit Provider Radiology Diagnostic Radiology | DX: J98.11 Atelectasis (principal) | CPT/HCPCS: 71046 ==

== ENCOUNTER 2025-09-08 14:32 | Outpatient (REF) | payer MEDICARE, SELFPAY ==
--- OUTSIDE RECORDS SUMMARY | 2024-02-13 10:00 | XMS_ITS | Continuity of Care Document ---
Author Organization [facility] Address [address] [place] [address] Phone Care Team Providers Care Tin Roofer Name Role Phone Flavio RIBEIRO, RVLeanne, NO, Giovanni Unavailable U navailable Procedures Procedure Date Office/Outpt E&M Established 15 Mins- CT & [place] Duplex Scan-extrem Veins; Comp- CT & [place] Ultrason Guidan Needle Bx-rad 4 Inj Sclerosing Solution; Sngl 4 Duplex Scan-extrem Veins; / 24 Inj Scleros Solut; Mx Veins 1 4 Ultrason Guidan Needle Bx-rad 4 Duplex Scan-extrem Veins; / 24 Endovenous Laser, 1st Vein Inj Scleros Solut; Mx Veins 1 4 Ultrason Guidan Needle Bx-rad 4 Offic/outpt E&m Estab 5 Min Trial - Tele medicine Offic Cons New/estab Mod-hi 60 Duplex Scan-extrem Veins; Comp Advance Directives Directive Yes / No Effective Date File Name No Information Encounters Encounter Description Practice Location Reason(s) For Visit Diagnoses Date Provider Providers Copied on Encounter Office/Outpt E&M Established 15 Mins- CT & [place] [facility], [address], [id number], [place] tel:[phone] [facility] [place] Varicose veins of bilateral lower extremities with other complication sLymphedema, not elsewhere classified 4 Flavio RIBEIRO RVT, NO Davila. [address] [address], [place], [place], [id number], [place]. tel:[phone] Referring Provider: Cayla Peñaloza NP, [address] [facility] [place], [address]. tel:[phone] [facility], [address] [place] [address] [address]J[place], [id number], [place] tel:[phone] [facility] [place] Encounter for follow-up examination after completed treatment for conditions other than malignant neChronic venous hypertension (idiopathic) with other complication s of bilateral lower extremity 4 Flavio RIBEIRO RVT, NO Davila. [address] [address], [place], [place], [id number], [place]. tel:[phone] Referring Provider: Cayla Peñaloza NP, [address] [facility] [place], [address]. tel:[phone] [facility], [address] [place] [address] [address]Javi [place], [id number], [place] tel:[phone] CV[facility] - [place] Varicose veins of left lower extremity with other complication s 4 Wyatt Briceno. [address] [facility] [facility] [address], [place], [place], [id number], [place]. tel:[phone] Referring Provider: Cayla Peñaloza NP, [address] [facility] [place], [address]. tel:[phone] [facility], [address] [place] [address] [address]J[place], [id number], [place] tel:[phone] [facility] Encounter for follow-up examination after completed treatment for conditions other than malignant nePain in right leg 0 4 Flavio RIBEIRO RVT, NO Davila. [address] [place] [address], Suite [facility], [place], [id number], [place]. tel:[phone] Referring Provider: Cayla Peñaloza NP, [address] [facility] [place], [address]. tel:[phone] [facility], [address] [place] [address] [address], [id number], [place] tel:[phone] [facility] - [place] Chronic venous hypertension (idiopathic) with inflammation of right lower extremity Nov- 4 Flavio RIBEIRO RVT, NO Davila. [address] [place] [address], Suite [facility], [place], [id number], [place]. tel:[phone] Referring Provider: Cayla Peñaloza NP, [address] [place] [address] [place] [address] [place], [address]. tel:[phone] [facility], [address] [place] [address] Dr [address], [id number], [place] tel:[phone] [facility] [place] Encounter for follow-up examination after completed treatment for conditions other than malignant neVaricose veins of right lower extremity with pain Nov- 4 Flavio RIBEIRO RVT, NO Davila. [address] [place] [address], [address] [address], [place], [id number], [place]. tel:[phone] Referring Provider: Cayla Peñaloza NP, [address] [facility] [place], [address]. tel:[phone] [facility], [address] [place] [address] [address]J[place], [id number], [place] tel:[phone] CVR - [facility] Varicose veins of right lower extremity with other complication s 4 Flavio RIBEIRO RVT, RPVI Robert. [address] [place] [address], [address], [place], [id number], [place]. tel:[phone] Referring Provider: Cayla Peñaloza NP, [address] [facility] [place], [address]. tel:[phone] Offic/outpt E&m Estab 5 Min Trial - Telemedicine [facility], [address] [place] [address] [address], [id number], [place] tel:[phone] [facility] Localized edemaCramp and spasmRestles s legs syndromeVeno us insufficienc y (chronic) (peripheral) Disorder of pigmentation , unspecified 3 Wyatt Briceno. [address] [facility] [address], [facility] [place], [id number], [place]. tel:[phone] Referring Provider: Cayla Peñaloza NP, [address] [facility] [place], [address]. tel:[phone] Offic Cons New/estab Mod-hi 60 [facility], [address] [place] [address] [address]J[place], [id number], [place] tel:[phone] CV - [facility] Varicose veins of bilateral lower extremities with other complication sVaricose veins of right lower extremity with inflammation Varicose veins of left lower extremity with inflammation Localized edemaRestles s legs syndromeLymp hedema, not elsewhere classifiedDi sorder of pigmentation , unspecifiedH ereditary lymphedemaCr amp and spasm Jul- 3 Pranya RIBEIRO FACS RVT RPGEMA Barahona. [address] [facility] [address], [place], [address], [place]. tel:[phone] Referring Provider: Cayla Peñaloza NP, [address] [facility] [place], [address]. tel:[phone] [place] [facility], [address] [place] [address] [address], [id number], [place] tel:[phone] [facility] Chronic venous hypertension (idiopathic) with other complication s of bilateral lower extremity 3 Pranay RIBEIRO FACS RVT LEIDAVI Antonio Barahona. [address] [facility], [address], [place], [address], [place]. tel:[phone] Referring Provider: Cayla Peñaloza [employer], [address] [place] [address] Dr [address] Certified Low Vision Therapist [facility] In , [place], [address]. tel:[phone] Family History Family Member Type Diagnosis Age At Onset No Information Payers Payer name Insurance type Covered libertarian ID Thea alejandra(s) [employer] CI [id number] Social History Type Description Quantity Date Captured Comments Alcohol Use Details Unknown Caffeine Use Details Unknown Tobacco Use Status Smoking Status Smoker, current stat us unknown Non-Smoking Tobacco Use Details : No Details Available : No Details Available Sex Female Vital Signs Date / Time: Height Weight BMI Pulse Rate Blood Pressure Temperature Respiratory Rate Body Surface Area Head Circumference Head Circ. Percentile Wt./Augustin. Percentile BMI percentile Pulse Ox Inhaled Ox 77.110 kg (170.00 lbs) 31.1 2 kg/m eter (2) 124/84 mm[Hg] Chief Complaint And Reason For Visit No Information Reason For Referral Reason For Referral No Information Plan Of Treatment Date Type Action Status Goal Tobacco cessation counseling completed Goal Diet education completed Goal Tobacco cessation counseling completed Goal Tobacco cessation counseling completed Goal Diet education completed Referral Ordered: Weight management: Referral to physician timeframe: 3 Months (related to Body mass index (BMI) 31.0-31.9, adult) ordered Referral Ordered: Weight management: Referral to physician timeframe: 3 Months (related to Body mass index (BMI) 31.0-31.9, adult) ordered History Of Present Illness Encounter Date Complaint History Of Prese nt Illness No Information Functional Status Date Functional Assessmen t No Information Instructions Date Instruction Additional Infor mation Patient education booklet given Related to Varicose veins of bilateral lower extremities with other complications Compression stocking usage as conservative measure Related to Varicose veins of bilateral lower extremities with other complications Lifestyle education Related to B steven mass index (BMI) 31.0-31.9, adult Giving Encouragement to exercise Related to Body mass index (BMI) 31.0-31.9, adult Diet education Related to Body mass index (BMI) 31.0-31.9, adult Pre and post instruc tions reviewed and provided Related to Localized edema Patient education booklet given Related to Localized edema Pre and post instruc tions reviewed and provided Related to Varicose veins of bilateral lower extremities with other complications Patient education booklet given Related to Varicose veins of bilateral lower extremities with other complications Lifestyle education Related to B steven mass index (BMI) 31.0-31.9, adult Giving Encouragement to exercise Related to Body mass index (BMI) 31.0-31.9, adult Diet education Related to Body mass index (BMI) 31.0-31.9, adult Assessments Type Assessment Date No Information Patient Care Teams Name Effective Dates (start - stop) Status Members No Information
--- OUTSIDE RECORDS SUMMARY | 2024-06-08 06:15 | XMS_ITS ---
Author Organization [facility] Address [address] [place] [address] Care Team Providers Care Shelter Case Manager Name Role Phone Lilo Davis Primary Care Provider Unavailab Aria Garcia [phone] Encounters Encounter Location Date Provider Diagnosis [facility] [address] [place] [address] 06/08/2024 Aria Dodd Plan Of Treatment Next Appt Details Provider Name:Aria A Yousif , 09/09/2025 10:45:00 AM, [address] [place], [address], Progress Notes * Evelyne CLAUDIO MDOB: (64 yo F)Acc No.[id number]:06/08/2024 Progress Note Patient: Evelyne HAYWARD Provider: Leanne Dodd DPM :1960 A ge:63 Y S ex:Female Date:06/08/2024 Address:[address] [place], [place] [address]Grace mcintoshLIB[place], [id number] Pcp:Lilo Davis Subjective: * Chief Complaints: * * Medical History: Objective: * Vitals: Assessment: Plan: * Treatment: * Images: * The named appointment provid er may or may not be the originator of this progress note, and it is not deemed complete until electronically signed by the appointment provider. Sign off status: Pending * Provider: Leanne Dodd DPM Date: 0 06/08/2024 Generated for Rehan sullivan/Wali/Elba on: 1 11/08/2024 06:00 PM EST
--- OUTSIDE RECORDS SUMMARY | 2025-07-26 08:00 | XMS_ITS ---
Author Organization [facility] Address [address] [place] [address] Care Team Providers Care Electronic Semiconductor Processor Name Role Phone Lilo Davis Primary Care Provider Unavailab Aria Garcia Unavailable [phone] Malone Encounters Encounter Location Date Provider Diagnosis [address] [address] 07/26/2025 Aria Dodd Plan Of Treatment Next Appt Details Provider Name:Aria Dodd , 09/09/2025 10:45:00 AM, [address] [place] [address], [phone], Progress Notes * Evelyne CLAUDIO MDOB: (64 yo F)Acc No.[id number]:07/26/2025 Progress Note Patient: Evelyne HAYWARD Provider: Leanne Dodd DPM :1960 A ge:64 Y S ex:Female Date:07/26/2025 Address:[address] [place], [place] [id number] Pcp:Lilo Davis Subjective: * Chief Complaints: * [address] Malone. * Medical History: Objective: * Vitals: Assessment: Plan: * Treatment: * Images: * The named appointment provid er may or may not be the originator of this progress note, and it is not deemed complete until electronically signed by the appointment provider. Sign off status: Pending * Provider: Leanne Dodd DPM Date: 0 07/26/2025 Generated for Rehan sullivan/Wali/Elba on: 1 11/08/2024 06:01 PM EST
--- NOTE | ~2025-09-08 | US_ITS ---
CLINICAL HISTORY: N28.9 - Disorder of kidney and ureter, unspecified US Renal Comparison: None provided Findings: Right kidney normal size and echotexture, 9.8 cm length. Left kidney normal size and echotexture, 9.0 cm length. There are bilateral Bosniak 1 cysts, largest on the left measuring 2.6 x 2.4 x 2.4 cm. No collecting system dilatation of either kidney. Normal color Doppler. IMPRESSION: 1. No acute findings. This document has been electronically signed by: Alvarez Sorto MD on 09/09/2025 10:38:41
--- OUTSIDE RECORDS SUMMARY | 2025-09-08 18:00 | XMS_ITS | Encounter Summary ---
Author Organization [facility] Address [address] [place] [address] Care Team Providers Care Rug Cleaning Supervisor Name Role Phone Domonique [place] MD Unavailable [phone] Najma Fay PA-C Unavailable Jed CalixC Unavailable Cayla Peñaloza NP Primary Care Provider Unavailabl e [facility], Pcp Primary Care Provider UnavailJim Hines Primary Care Provider Unavaila Laura Grey MD Primary Care Provider Unavailabl e Encounter Details Date Type Department Care Team Description 03/08/[address] [facility] [address] [address] Yu Hernández MD 175 [place] [address] Social History Tobacco Use Types Packs/Day Years [...] suspected to have Coronavirus/COVID-19? No / Unsure 02/25/2023 11:40 AM EDT documented as of this encounter Miscellaneous Notes * Telephone Encounter - Laurel Delgado - 03/08/2023 2:37 PM EDT Pt called again regarding MRI results, she would appreciate a call back * Telephone Encounter - Leny Victoria - 03/08/2023 10:35 AM EDT Evelyne called in asking about her MRI results. She states she is in a lot of pain. Please call patient when possible. Thank you documented in this encounter Plan of Treatment Not on file documented as of this encounter Visit Diagnoses Not on filedocumented in this encounter Care Teams Rug Cleaning Supervisor Relationship Specialty Start Date End Date Cayla Peñaloza NP [address] [address] PCP - General Internal Medicine 01/31/22 05/25/24 [facility], Pcp [address] [address] PCP - General Internal Medicine 05/26/24 07/28/24 Jim Tan [address] [address] PCP - General Internal Medicine 07/29/24 08/05/24 Laura Car MD [address] [address] PCP - General Family Practice 08/25/24 Domonique [place] MD [address] [address] Surgeon Neurosurgery 01/02/22 Najma Fay PA-C [address] [address] Specialist Neurosurgery 01/02/22 Jed Calix PA-C [address] [address] Specialist Neurosurgery 01/02/22 documented as of this encounter
--- OUTSIDE RECORDS SUMMARY | 2025-09-08 18:00 | XMS_ITS | Encounter Summary ---
Author Organization [facility] Address [address] [place] [address] Care Team Providers Care Hoop Riveter Name Role Phone Jim Tan Primary Care Provider Domonique Chavira MD Unavailable [phone] Najma Fay PA-C Unavailable [phone] Jed Calix PA-C Unavailable [phone] Cayla Peñaloza NP Primary Care Provider Unavailashkan mcintosh [facility], Pcp Primary Care Provider UnavailJim Hines Primary Care Provider Laura Antunez MD Primary Care Provider Unavailashkan mcintosh Encounter Details Date Type Department Care Team Description 05/23/2015 [facility] Report Medical Records [address] [place] [id number] Abstract, Provider Social History Tobacco Use Types [...] on filedocumented in this encounter Care Teams Hoop Riveter Relationship Specialty Start Date End Date Jim Tan PCP - General Internal Medicine 02/28/12 01/30/22 Cayla Peñaloza, TAMIA [address] [address] PCP - General Internal Medicine 01/31/22 05/25/24 [facility], Pcp [address] [address] PCP - General Internal Medicine 05/26/24 07/28/24 Jim Tan PCP - General Internal Medicine 07/29/24 08/05/24 Larua Car MD [address] [address] PCP - General Family Practice 08/25/24 Domonique [place] MD [address] [address] Surgeon Neurosurgery 01/02/22 Najma Fay PA-C [address] [address] Specialist Neurosurgery 01/02/22 Jed Calix PA-C [address] [address] Specialist Neurosurgery 01/02/22 documented as of this encounter
--- OUTSIDE RECORDS SUMMARY | 2025-09-08 18:00 | XMS_ITS | Encounter Summary ---
Author Organization [facility] Address [address] [place] [address] Care Team Providers Care Catering Chef Name Role Phone Domoniqeu [place] MD Unavailable [phone] Najma Fay PA-C Unavailable [phone] Jed Calix PA-C Unavailable Cayla Peñaloza NP Primary Care Provider Unavailabl e [facility], Pcp Primary Care Provider UnavailJim Hines Primary Care Provider Unavaila Laura Grey MD Primary Care Provider Unavailabl e Encounter Details Date Type Department Care Team Description 01/30/2023 SCAN [facility] Medical [facility] 175 [facility] [address] [place] [phone] Laurel Haynes PA-C 175 [facility] [address] [place] [address] Social History Tobacco Use Types Packs/Day Years [...] on filedocumented in this encounter Care Teams Catering Chef Relationship Specialty Start Date End Date Cayla Peñaloza NP 175 [facility] [address] [place] [address] PCP - General Internal Medicine 01/31/22 05/25/24 [facility], Pcp [address] [address] PCP - General Internal Medicine 05/26/24 07/28/24 Jim Tan [address] [address] PCP - General Internal Medicine 07/29/24 08/05/24 Laura Car MD [address] [address] PCP - General Family Practice 08/25/24 Domonique [place] MD [address] [address] Surgeon Neurosurgery 01/02/22 Najma Fay PA-C [address] [address] Specialist Neurosurgery 01/02/22 Jed Calix PA-C [address] [address] Specialist Neurosurgery 01/02/22 documented as of this encounter
--- OUTSIDE RECORDS SUMMARY | 2025-09-08 18:00 | XMS_ITS | Encounter Summary ---
Author Organization [facility] Address [address] [place] [address] Care Team Providers Care Kiln Firer Name Role Phone Domonique [place] MD Unavailable [phone] Najma Fay PA-C Unavailable [phone] Jed Calix PA-C Unavailable [phone] Cayla Peñaloza NP Primary Care Provider Diaz mcintosh [facility], Pcp Primary Care Provider Jim Lewis Primary Care Provider Laura Antunez MD Primary Care Provider Unavailashkan e Encounter Details Date Type Department Care Team Description 02/02/2022 Release of Information Medical Records [address] [place] [id number] Abstract, Provider Social History Tobacco Use Types [...] on filedocumented in this encounter Care Teams Kiln Firer Relationship Specialty Start Date End Date Cyala Peñaloza, TAMIA 175 [facility] [address] [place] [address] PCP - General Internal Medicine 01/31/22 05/25/24 [facility], Pcp [address] [address] PCP - General Internal Medicine 05/26/24 07/28/24 Jim Tan [address] [address] PCP - General Internal Medicine 07/29/24 08/05/24 Laura Car MD [address] [address] PCP - General Family Practice 08/25/24 Domonique [place] MD [address] [address] Surgeon Neurosurgery 01/02/22 Najma Fay PA-C [address] [address] Specialist Neurosurgery 01/02/22 Jed Calix PA-C [address] [address] Specialist Neurosurgery 01/02/22 documented as of this encounter
--- OUTSIDE RECORDS SUMMARY | 2025-09-08 18:00 | XMS_ITS | Encounter Summary ---
Author Organization [facility] Address [address] [place] [address] Care Team Providers Care Renal Case Manager Name Role Phone Domonique [place] MD Unavailable [phone] Najma Fay PA-C Unavailable Jed Calix PA-C Unavailable Cayla Peñaloza NP Primary Care Provider Unavailabl e [facility], Pcp Primary Care Provider UnavailJim Hines Primary Care Provider Unavaila Laura Grey MD Primary Care Provider Unavailabl e Encounter Details Date Type Department Care Team Description 03/23/2022 Telephone [facility] Neurosurgery [place] [address] [address] Domonique [place] MD 175 [place] [address] Social History Tobacco Use Types Packs/Day Years [...] surgery and posto restrictions/recovery expectations. 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 Pt [...] on filedocumented in this encounter Care Teams Renal Case Manager Relationship Specialty Start Date End Date Cayla Peñaloza NP [address] [address] PCP - General Internal Medicine 01/31/22 05/25/24 [facility], Pcp [address] [address] PCP - General Internal Medicine 05/26/24 07/28/24 Jim Tan [address] [address] PCP - General Internal Medicine 07/29/24 08/05/24 Laura Car MD [address] [address] PCP - General Family Practice 08/25/24 Domonique [place] MD [address] [address] Surgeon Neurosurgery 01/02/22 Najma Fay PA-C [address] [address] Specialist Neurosurgery 01/02/22 Jed Calix PA-C [address] [address] Specialist Neurosurgery 01/02/22 documented as of this encounter
--- OUTSIDE RECORDS SUMMARY | 2025-09-08 18:01 | XMS_ITS | Encounter Summary ---
Author Organization [facility] Address [address] [place] [address] Care Team Providers Care Web Developer Programmer Name Role Phone Domonique [place] MD Unavailable [phone] Najma Fay PA-C Unavailable [phone] Jed Calix PA-C Unavailable [phone] Cayla Peñaloza NP Primary Care Provider Unavailashkan [place], Pcp Primary Care Provider Jim Lewis Primary Care Provider Laura Antunez MD Primary Care Provider Unavailashkan e Encounter Details Date Type Department Care Team Description 11/14/2023 [facility] Medical [facility] Neurosurgery [place] [address] [phone] Jed Calix PA-C [address] [phone] Social History Tobacco Use Types Packs/Day Years [...] on filedocumented in this encounter Care Teams Web Developer Programmer Relationship Specialty Start Date End Date Cayla Peñaloza NP [address] [address] PCP - General Internal Medicine 01/31/22 05/25/24 [facility], Pcp [address] [address] PCP - General Internal Medicine 05/26/24 07/28/24 Jim Tan [address] [address] PCP - General Internal Medicine 07/29/24 08/05/24 Laura Car MD [address] [address] PCP - General Family Practice 08/25/24 Domonique [place] MD [address] [address] Surgeon Neurosurgery 01/02/22 Najma Fay PA-C [address] [address] Specialist Neurosurgery 01/02/22 Jed Calix PA-C [address] [address] Specialist Neurosurgery 01/02/22 documented as of this encounter
--- OUTSIDE RECORDS SUMMARY | 2025-09-08 18:01 | XMS_ITS | Encounter Summary ---
Author Organization [facility] Address [address] [place] [address] Care Team Providers Care Oncology Rep Specialist Name Role Phone Domonique [place] MD Unavailable [phone] Najma Fay PA-C Unavailable Jed CalixC Unavailable [phone] Cayla Peñaloza NP Primary Care Provider Unavailabl e [facility], Pcp Primary Care Provider Unavailabl e Jim Tan Primary Care Provider Unavaila Laura Grey MD Primary Care Provider Unavailabl e Reason for Visit * Reason Onset Date Comments allergies 04/25/2022 Encounter Details Date Type Department Care Team Description 04/25/2022 Telephone [facility] Medical [facility] Neurosurgery [place] [address] [address] Domonique [place] MD [address] [place] [address] allergies Social History Tobacco Use Types [...] on filedocumented in this encounter Care Teams Oncology Rep Specialist Relationship Specialty Start Date End Date Cayla Peñaloza NP [address] [address] PCP - General Internal Medicine 01/31/22 05/25/24 [facility], Pcp [address] [address] PCP - General Internal Medicine 05/26/24 07/28/24 Jim Tan [address] [address] PCP - General Internal Medicine 07/29/24 08/05/24 Laura Car MD [address] [address] PCP - General Family Practice 08/25/24 Domonique [place] MD [address] [address] Surgeon Neurosurgery 01/02/22 Najma Fay PA-C [address] [address] Specialist Neurosurgery 01/02/22 Jed Calix PA-C [address] [address] Specialist Neurosurgery 01/02/22 documented as of this encounter
--- OUTSIDE RECORDS SUMMARY | 2025-09-08 18:01 | XMS_ITS | Encounter Summary ---
Author Organization [facility] Address [address] [place] [address] Care Team Providers Care Emulsion Operator Name Role Phone Domonique [place] MD Unavailable [phone] Najma Fay PA-C Unavailable Jed Calix PA-C Unavailable [phone] Cayla Peñaloza NP Primary Care Provider Unavailashkan mcintosh [facility], Pcp Primary Care Provider UnavailJim Hines Primary Care Provider UnavailLaura Quiroga MD Primary Care Provider Unavailashkan e Encounter Details Date Type Department Care Team Description 08/29/2023 [facility] Medical [facility] Neurosurgery [place] [address] [phone] Domonique [place] MD [address] [address] Social History Tobacco Use Types Packs/Day Years [...] on filedocumented in this encounter Care Teams Emulsion Operator Relationship Specialty Start Date End Date Cayla Peñaloza NP [address] [address] PCP - General Internal Medicine 01/31/22 05/25/24 [facility], Pcp [address] [address] PCP - General Internal Medicine 05/26/24 07/28/24 Jim Tan [address] [address] PCP - General Internal Medicine 07/29/24 08/05/24 Laura Car MD [address] [address] PCP - General Family Practice 08/25/24 Domonique [place] MD [address] [address] Surgeon Neurosurgery 01/02/22 Najma Fay PA-C [address] [address] Specialist Neurosurgery 01/02/22 Jed Calix PA-C [address] [address] Specialist Neurosurgery 01/02/22 documented as of this encounter
--- OUTSIDE RECORDS SUMMARY | 2025-09-08 18:01 | XMS_ITS | Encounter Summary ---
Author Organization [facility] Address [address] [facility] [address] [place] [address] Phone Care Team Providers Care Director Life Sales Name Role Phone Getachew Toscano MD Unavailable Braxton Hernandez DPM, Erik Unavailable [phone] Reason for Visit * Reason Comments Medication Refill Encounter Details Date Type Department Care Team (Late st Contact Info) Description 07/28/2025 Refill [facility] [place] [facility] [address] [facility] [address] [place] [address] Lynda Kumar MD 15 [facility] [address] [place] [address] [email or web address] Medication Refill Social History Tobacco Use Types [...] high school, GED, job training, learning the Tristanian language, technical skills, or developing parenting skills)? [...] documented as of this encounter Care Teams Director Life Sales Relationship Specialty Start Date End Date Getachew Toscano MD [address] [place] [phone] Internal Medicine 02/17/20 Jun Limon DPM [address] [place] [address] Podiatry 10/04/20 documented as of this encounter Additional Source Comments The information contained in this document represents components of the legal health record. It is not the complete legal health record.[facility]
--- OUTSIDE RECORDS SUMMARY | 2025-09-08 18:01 | XMS_ITS | Encounter Summary ---
Author Organization [facility] Address [address] [place] [address] Care Team Providers Care Handle Bender Name Role Phone Domonique [place] MD Unavailable [phone] Najma Fay PA-C Unavailable Jed Calix PA-C Unavailable Cayla Peñaloza NP Primary Care Provider Unavailabl e [facility], Pcp Primary Care Provider UnavailJim Hines Primary Care Provider Unavaila Laura Grey MD Primary Care Provider Unavailabl e Encounter Details Date Type Department Care Team Description 04/04/2023 SCAN [facility] Medical [facility] Neurosurgery [place] [address] [address] Najma Fay PA-C [address] [address] Social History Tobacco Use Types Packs/Day Years [...] on filedocumented in this encounter Care Teams Handle Bender Relationship Specialty Start Date End Date Cayla Peñaloza NP [address] [address] PCP - General Internal Medicine 01/31/22 05/25/24 [facility], Pcp [address] [address] PCP - General Internal Medicine 05/26/24 07/28/24 Jim Tan [address] [address] PCP - General Internal Medicine 07/29/24 08/05/24 Laura Car MD [address] [address] PCP - General Family Practice 08/25/24 Domonique [place] MD [address] [address] Surgeon Neurosurgery 01/02/22 Najma Fay PA-C [address] [address] Specialist Neurosurgery 01/02/22 Jed Calix PA-C [address] [address] Specialist Neurosurgery 01/02/22 documented as of this encounter
--- OUTSIDE RECORDS SUMMARY | 2025-09-08 18:01 | XMS_ITS | Encounter Summary ---
Author Organization [facility] Address [address] [facility] [address] [place] [address] Phone Care Team Providers Care Camera Repairer Name Role Phone Getachew Toscano MD Unavailable Braxton Hernandez DPM, Erik Unavailable Reason for Visit * Reason Comments Medication Refill Encounter Details Date Type Department Care Team (Late st Contact Info) Description 08/03/2025 Refill [facility] [place] [facility] [address] [facility] [address] [place] [address] Lynda Kumar MD 15 [facility] [address] [place] [address] [email or web address] Medication Refill Social History Tobacco Use Types [...] high school, GED, job training, learning the Albanian language, technical skills, or developing parenting skills)? [...] documented as of this encounter Care Teams Camera Repairer Relationship Specialty Start Date End Date Getachew Toscano MD [address] [place] [phone] Internal Medicine 02/17/20 Jun Limon DPM [address] [place] [address] Podiatry 10/04/20 documented as of this encounter Additional Source Comments The information contained in this document represents components of the legal health record. It is not the complete legal health record.[facility]
--- OUTSIDE RECORDS SUMMARY | 2025-09-08 18:01 | XMS_ITS | Clinical Summary ---
Author Organization [facility] Address [address] [place] [address] Care Team Providers Care Medical Insurance Biller Name Role Phone Cayla Peñaloza NP Primary Care Provider [phone] Social History Tobacco Use Types Packs/Day Years [...] C Screening 1962 COVID-19 Vaccine (#1) 03/28/1963 Depression Screening 1974 Preventative Health Evaluation 1980 [...] on patient's age to complete this topic Pneumococcal Vaccine Aged Out No long er eligible based on patient's age to complete this topic RSV Ped < 20 months Aged Out No longe r eligible based on patient's age to complete this topic Care Teams Medical Insurance Biller Relationship Specialty Start Date End Date Cayla Peñaloza, TAMIA [address] [facility] [address] [address] PCP - General Family Medicine 03/20/19
--- OUTSIDE RECORDS SUMMARY | 2025-09-08 18:01 | XMS_ITS | Encounter Summary ---
Author Organization [facility] Address [address] [place] [address] Care Team Providers Care Assistant Hairstylist Name Role Phone Domonique [place] MD Unavailable [phone] Najma Fay PA-C Unavailable Jed Calix PA-C Unavailable [phone] Laura Car MD Primary Care Provider Unavailabl e Encounter Details Date Type Department Care Team Description 08/20/2024 SCAN [facility] Medical [facility] Neurosurgery [place] [address] [phone] Najma Fay PA-C [address] [phone] Social History Tobacco Use Types Packs/Day Years [...] on filedocumented in this encounter Care Teams Assistant Hairstylist Relationship Specialty Start Date End Date Laura Car MD [address] [address] PCP - General Family Practice 08/25/24 Domonique [place] MD [address] [phone] Surgeon Neurosurgery 01/02/22 Najma Fay PA-C 175 [facility] [address] [place] [address] Specialist Neurosurgery 01/02/22 Jed Calix PA-C [address] [address] Specialist Neurosurgery 01/02/22 documented as of this encounter
--- OUTSIDE RECORDS SUMMARY | 2025-09-08 18:01 | XMS_ITS | Encounter Summary ---
Author Organization [facility] Address [address] [place] [address] Care Team Providers Care Sea Captain Name Role Phone Domonique [place] MD Unavailable [phone] Najma Fay PA-C Unavailable Jed Calix PA-C Unavailable Cayla Peñaloza NP Primary Care Provider Unavailabl e [facility], Pcp Primary Care Provider UnavailJim Hines Primary Care Provider Unavaila Laura Grey MD Primary Care Provider Unavailabl e Encounter Details Date Type Department Care Team Description 04/04/2023 SCAN [facility] Medical [facility] Neurosurgery [place] [address] [address] Domonique [place] MD 175 [place] [address] Social History Tobacco Use Types Packs/Day Years [...] on filedocumented in this encounter Care Teams Sea Captain Relationship Specialty Start Date End Date Cayla Peñaloza NP [address] [address] PCP - General Internal Medicine 01/31/22 05/25/24 [facility], Pcp [address] [address] PCP - General Internal Medicine 05/26/24 07/28/24 Jim Tan [address] [address] PCP - General Internal Medicine 07/29/24 08/05/24 Laura Car MD [address] [address] PCP - General Family Practice 08/25/24 Domonique [place] MD [address] [address] Surgeon Neurosurgery 01/02/22 Najma Fay PA-C [address] [address] Specialist Neurosurgery 01/02/22 Jed Calix PA-C [address] [address] Specialist Neurosurgery 01/02/22 documented as of this encounter
--- OUTSIDE RECORDS SUMMARY | 2025-09-08 18:01 | XMS_ITS | Encounter Summary ---
Author Organization [facility] Address [address] [place] [address] Care Team Providers Care Ice Cream Machine Operator Name Role Phone Domonique [place] MD Unavailable [phone] Najma Fay PA-C Unavailable Jed Calix PA-C Unavailable Cayla Peñaloza NP Primary Care Provider Unavailabl e [facility], Pcp Primary Care Provider UnavailJim Hines Primary Care Provider Unavaila Laura Grey MD Primary Care Provider Unavailabl e Encounter Details Date Type Department Care Team Description 05/17/2023 SCAN [facility] Medical [facility] Neurosurgery [place] [address] [address] Domonique [place] MD 175 [place] [address] Social History Tobacco Use Types Packs/Day Years [...] on filedocumented in this encounter Care Teams Ice Cream Machine Operator Relationship Specialty Start Date End Date Cayla Peñaloza NP [address] [address] PCP - General Internal Medicine 01/31/22 05/25/24 [facility], Pcp [address] [address] PCP - General Internal Medicine 05/26/24 07/28/24 Jim Tan [address] [address] PCP - General Internal Medicine 07/29/24 08/05/24 Laura Car MD [address] [address] PCP - General Family Practice 08/25/24 Domonique [place] MD [address] [address] Surgeon Neurosurgery 01/02/22 Najma Fay PA-C [address] [address] Specialist Neurosurgery 01/02/22 Jed Calix PA-C [address] [address] Specialist Neurosurgery 01/02/22 documented as of this encounter
--- OUTSIDE RECORDS SUMMARY | 2025-09-08 18:01 | XMS_ITS | Clinical Summary ---
Author Organization [facility] Address [address] [place] [address] Care Team Providers Care Head Cd Reactor Operator Name Role Phone Cayla Peñaloza NP Primary Care Provider Allergies Active Allergy Reactions [...] metroNIDAZOLE (FLAGYL) 500 MG tabletIndicatio ns:Abscess of tar worker space of mouth Take 1 tablet (500 mg total) by mouth 2 (two) times a day. Take with meals or food to reduce stomach upset. 44 tablet 2 Active cephalexin (KEFLEX) 500 MG capsuleIndicati ons:Abscess of tar worker space of mouth Take 2 capsules (1,000 mg total) by mouth 2 (two) times a day. 88 capsule 2 Active baclofen (LIORESAL) 5 MG tabletIndicatio ns:Abscess of tar worker space of mouth Take 3 tablets (15 [...] Problem Noted Date Diagnosed Date Abscess of tar worker space of mouth 01/16/2022 Overview (01/16/2022): Added automatically from request for surgery [id number] Facial abscess 01/16/2022 Family History Medical History [...] (Ages 21-65) 1983 Mammogram 2002 Colonoscopy 2007 RSV Vaccine 50 years and older and Patients (1 - Risk 50-74 years 1-dose series) 2012 COVID-19 Vaccine (3 - Pfizer risk series) 03/03/2021 02/03/2021, 01/13/2021 Influenza Vaccine 05/28/2025 07/26/2020, 07/21/2019, 07/29/2018 Chronic Controlled Substance User PDMP Review Discontinued 01/16/2022 Hepatitis B Vaccines Aged Out No long er eligible based on patient's age to complete this topic Insurance [facility] Advance Directives * Full Code (Latest Code Status on File) Date Activated Date Inactivated Comments 01/16/2022 11:40 PM Care Teams Head Cd Reactor Operator Relationship Specialty Start Date End Date Cayla Peñaloza NP [address] [place] [address] PCP - General Family Medicine 01/16/22
--- OUTSIDE RECORDS SUMMARY | 2025-09-08 18:01 | XMS_ITS | Encounter Summary ---
Author Organization [facility] Address [address] [place] [address] Care Team Providers Care Tube Bender Hand Name Role Phone Domonique Gibson MD Unavailable [phone] Najma Fay PA-C Unavailable Jed Calix PA-C Unavailable Cayla Peñaloza NP Primary Care Provider Unavailabl e [facility], Pcp Primary Care Provider UnavailJim Hines Primary Care Provider Unavaila Laura Grey MD Primary Care Provider Unavailabl e Encounter Details Date Type Department Care Team Description 04/11/2023 SCAN [facility] Medical [facility] Neurosurgery [place] [address] [address] Domonique Gibson MD 175 [place] [address] Social History Tobacco Use Types Packs/Day Years [...] on filedocumented in this encounter Care Teams Tube Bender Hand Relationship Specialty Start Date End Date Cayla Peñaloza NP [address] [address] PCP - General Internal Medicine 01/31/22 05/25/24 [facility], Pcp [address] [address] PCP - General Internal Medicine 05/26/24 07/28/24 Jim Tan [address] [address] PCP - General Internal Medicine 07/29/24 08/05/24 Laura Car MD [address] [address] PCP - General Family Practice 08/25/24 Domonique Gibson MD [address] [address] Surgeon Neurosurgery 01/02/22 Najma Fay PA-C [address] [address] Specialist Neurosurgery 01/02/22 Jed Calix PA-C [address] [address] Specialist Neurosurgery 01/02/22 documented as of this encounter
--- OUTSIDE RECORDS SUMMARY | 2025-09-08 18:01 | XMS_ITS | Encounter Summary ---
Author Organization [facility] Address [address] [place] [address] Care Team Providers Care Sculpture Instructor Name Role Phone Domonique Gibson MD Unavailable [phone] Najma Fay PA-C Unavailable Jed Calix PA-C Unavailable Cayla Peñaloza NP Primary Care Provider Unavailabl e [facility], Pcp Primary Care Provider UnavailJim Hines Primary Care Provider Unavaila Laura Grey MD Primary Care Provider Unavailabl e Encounter Details Date Type Department Care Team Description 05/22/2023 SCAN [facility] Medical [facility] Neurosurgery [place] [address] [address] Domonique Gibson MD 175 [place] [address] Social History Tobacco Use Types Packs/Day Years [...] on filedocumented in this encounter Care Teams Sculpture Instructor Relationship Specialty Start Date End Date Cayla Peñaloza NP [address] [address] PCP - General Internal Medicine 01/31/22 05/25/24 [facility], Pcp [address] [address] PCP - General Internal Medicine 05/26/24 07/28/24 Jim Tan [address] [address] PCP - General Internal Medicine 07/29/24 08/05/24 Laura Car MD [address] [address] PCP - General Family Practice 08/25/24 Domonique Gibson MD [address] [address] Surgeon Neurosurgery 01/02/22 Najma Fay PA-C [address] [address] Specialist Neurosurgery 01/02/22 Jed Calix PA-C [address] [address] Specialist Neurosurgery 01/02/22 documented as of this encounter
--- OUTSIDE RECORDS SUMMARY | 2025-09-08 18:01 | XMS_ITS | Patient Health Record ---
Author Organization [facility] Address [address] [place] [address] Care Team Providers Care Poultry Farm Manager Name Role Phone Cayla Peñaloza NP Primary [...] day Active oxyBUTYnin Chloride ER 10 MG Oral; Duration: 30 Active OxyCONTIN 15 MG TAKE 1 TABLET BY MOUTH EVERY 12 HOURS Oral; Duration: 28 Active Simvastatin 20 MG 1 tablet in the evening Orally Once a day Active buPROPion HCl ER (XL) 300 MG 1 tablet in the morning Orally Once a day Active sulfaSALAzine 500 MG TAKE 2 TABLETS BY MOUTH TWICE DAILY Oral; Duration: 30 Active Levothyroxine Sodium 50 MCG 1 tablet Orally Once a day Active oxyCODONE HCl ER 10 MG 1 tablet Orally every 12 hrs Active Pregabalin 75 MG TAKE 1 CAPSULE BY MOUTH THREE TIMES DAILY Oral; Duration: 30 Active Baclofen 10 MG Oral; Duration: 30 Active Furosemide 20 MG 1 tablet Orally Once a day as needed Active Hydroxychloroquine Sulfate 200 MG Oral; Duration: 90 Not-Takin g Omeprazole 20 MG Oral; Duration: 90 Active oxyCODONE HCl 20 MG 1 tablet as needed Orally every 6 hrs Active Cyclobenzaprine HCl 10 MG 1 tablet Orall y Three times a day Active Immunizations Vaccine Route Administration Date Status Comme nts Influenza Unknown 10/28/2023 Administered Problems Problem Type SNOMED Code ICD Code Onset Dates Problem Status W/U Status Risk Notes Problem Colon cancer screening (843211630) Colon cancer screening (Z12.11) Active confirmed Problem History of polyp of colon (situation) (197118293) Personal history of colonic polyps (Z86.010) Active confirmed Problem Drug-induced constipation (02858827) Drug-induced constipation (K59.03) Active confirmed Problem Gastroesophageal reflux disease (022042330) Gastroesophageal reflux disease, unspecified whether esophagitis present (K21.9) Active confirmed Plan Of Treatment Future Test Test Name Order Date COLONOSCOPY 11/04/2014 COLONOSCOPY 11/27/2023 Insurance Providers Payer Name Payer Address Payer Phone Subscriber Number Group Number Insured Name Patient Relationship to Insured Coverage Start Date Coverage End Date [facility] [address] [place] [address] [id number] BEAR KRAUSE Self - patient is the [...]
--- OUTSIDE RECORDS SUMMARY | 2025-09-08 18:01 | XMS_ITS | Encounter Summary ---
Author Organization [facility] Address [address] [place] [address] Care Team Providers Care Boat Hop Name Role Phone Domonique Gibson MD Unavailable [phone] Najma Fay PA-C Unavailable [phone] Jed Calix PA-C Unavailable [phone] Cayla Peñaloza NP Primary Care Provider Unavailashkan Quintana, Pcp Primary Care Provider Jim Lewis Primary Care Provider Laura Antunez MD Primary Care Provider Unavailashkan e Encounter Details Date Type Department Care Team Description 10/24/2023 SCAN [facility] Medical [facility] Neurosurgery [place] [address] [phone] Jed Calix PA-C [address] [phone] Social History Tobacco Use Types Packs/Day Years [...] on filedocumented in this encounter Care Teams Boat Hop Relationship Specialty Start Date End Date Cayla Peñaloza NP [address] [address] PCP - General Internal Medicine 01/31/22 05/25/24 [facility], Pcp [address] [address] PCP - General Internal Medicine 05/26/24 07/28/24 Jim Tan [address] [address] PCP - General Internal Medicine 07/29/24 08/05/24 Laura Car MD [address] [address] PCP - General Family Practice 08/25/24 Domonique Gibson MD [address] [address] Surgeon Neurosurgery 01/02/22 Najma Fay PA-C [address] [address] Specialist Neurosurgery 01/02/22 Jed Calix PA-C [address] [address] Specialist Neurosurgery 01/02/22 documented as of this encounter
--- OUTSIDE RECORDS SUMMARY | 2025-09-08 18:01 | XMS_ITS | Encounter Summary ---
Author Organization [facility] Address [address] [facility] [address] [place] [address] Phone Care Team Providers Care Wallet Assembler Name Role Phone Getachew Toscano MD Unavailable [phone] Braxton Hernandez DPM, Erik Unavailable Reason for Visit * Reason Comments Medication Refill Encounter Details Date Type Department Care Team (Late st Contact Info) Description 07/14/2025 Refill [facility] [employer] [facility] Primary [facility] [address] [facility] [address] [place] [address] Lynda Kumar MD [address] [facility] [address] [place] [address] [email or web address] Medication Refill Social History Tobacco Use Types [...] high school, GED, job training, learning the Dutch language, technical skills, or developing parenting skills)? [...] as of this encounter Progress Notes * Christina Maria MA - 07/14/2025 1:02 PM EDT Rx Care Gap Status - Instructions for Clinical Staff (prescriber discretion applies): > Mismatch review guide > No future appt: Please schedule if appropriate. Visit Info Last visit: 12/11/2024 Candice John FNP - Primary Care [facility] PRIMARY OXBOW > Requested f/u: Not specified Upcoming visit: None ACTIONS TAKEN BY Christina Maria MA - Criteria met. Antidepressant / Anxiolytics (Non-Benzodiazepine) Rx Protocol - bupropion HCl Criteria met; renew for up to 12 months. Visit in the past 14 months: Yes documented in this encounter Plan of Treatment Not on file documented as of this encounter Visit Diagnoses Not on filedocumented in this encounter Additional Health Concerns Assessment Noted Time PHQ-9 Depression Total Score: 15 024 1:14 PM EDT PHQ-2 Depression Total Score: 3 06/25/20 24 1:14 PM EDT documented as of this encounter Care Teams Wallet Assembler Relationship Specialty Start Date End Date Getachew Toscano MD [address] [place] [address] [address] [place] [address] Internal Medicine 02/17/20 Jun Limon DPM [address] [place] [address] Podiatry 10/04/20 documented as of this encounter Additional Source Comments The information contained in this document represents components of the legal health record. It is not the complete legal health record.[facility]
--- OUTSIDE RECORDS SUMMARY | 2025-09-08 18:01 | XMS_ITS | Encounter Summary ---
Author Organization [facility] Address [address] [place] [address] Care Team Providers Care Chemical Equipment Controller Name Role Phone Domonique Gibson MD Unavailable [phone] Najma Fay PA-C Unavailable [phone] Jed Calix PA-C Unavailable Laura Car MD Primary Care Provider Unavailabl e Encounter Details Date Type Department Care Team Description 08/20/2024 SCAN [facility] Medical [facility] Neurosurgery [place] [address] [phone] Najma Fay PA-C [address] [phone] Social History Tobacco Use Types Packs/Day Years [...] on filedocumented in this encounter Care Teams Chemical Equipment Controller Relationship Specialty Start Date End Date Laura Car MD [address] [address] PCP - General Family Practice 08/25/24 Domonique Gibson MD [address] [phone] Surgeon Neurosurgery 01/02/22 Najma Fay PA-C 175 [facility] [address] [place] [address] Specialist Neurosurgery 01/02/22 Jed Calix PA-C [address] [address] Specialist Neurosurgery 01/02/22 documented as of this encounter
--- OUTSIDE RECORDS SUMMARY | 2025-09-08 18:01 | XMS_ITS | Encounter Summary ---
Author Organization [facility] Address [address] [place] [address] Care Team Providers Care Administrative Support Specialist Name Role Phone Domonique Gibson MD Unavailable [phone] Najma Fay PA-C Unavailable Jed Calix PA-C Unavailable Laura Car MD Primary Care Provider Unavailabl e Encounter Details Date Type Department Care Team Description 08/19/2024 SCAN [facility] Medical [facility] Neurosurgery [place] [address] [phone] Najma Fay PA-C [address] [phone] Social History Tobacco Use Types Packs/Day Years [...] on filedocumented in this encounter Care Teams Administrative Support Specialist Relationship Specialty Start Date End Date Laura Car MD [address] [address] PCP - General Family Practice 08/25/24 Domonique Gibson MD [address] [phone] Surgeon Neurosurgery 01/02/22 Najma Fay PA-C 175 [facility] [address] [place] [address] Specialist Neurosurgery 01/02/22 Jed Calix PA-C [address] [address] Specialist Neurosurgery 01/02/22 documented as of this encounter
--- OUTSIDE RECORDS SUMMARY | 2025-09-08 18:02 | XMS_ITS | Encounter Summary ---
Author Organization [facility] Address [address] [place] [address] Care Team Providers Care Credit Risk Management Director Name Role Phone Domonique Gibson MD Unavailable [phone] Najma Fay PA-C Unavailable Jed Calix PA-C Unavailable [facility], Pcp Primary Care Provider Jim Lewis Primary Care Provider Laura Antunez MD Primary Care Provider Diaz mcintosh Encounter Details Date Type Department Care Team Description 05/27/2024 SCAN [facility] Medical [facility] Neurosurgery [place] [address] [address] Najma Fay PA-C [address] [phone] Social History Tobacco Use Types Packs/Day Years [...] on filedocumented in this encounter Care Teams Credit Risk Management Director Relationship Specialty Start Date End Date Community, Pcp [address] [address] PCP - General Internal Medicine 05/26/24 07/28/24 Jim Tan [address] [address] PCP - General Internal Medicine 07/29/24 08/05/24 Laura Car MD [address] [address] PCP - General Family Practice 08/25/24 Domonique Gibson MD [address] [address] Surgeon Neurosurgery 01/02/22 Najma Fay PA-C [address] [address] Specialist Neurosurgery 01/02/22 Jed Calix PA-C [address] [address] Specialist Neurosurgery 01/02/22 documented as of this encounter
--- OUTSIDE RECORDS SUMMARY | 2025-09-08 18:02 | XMS_ITS | Data Portability ---
Author Organization [place] [facility] Address [address] [place] [address] Care Team Providers Care Production Stage Manager Name Role Phone LAZARO BONDS Primary Care [...] also has nasal congestion and overuse of wgmg-eex-qjunban decongestant preparations. I have recommended saline irrigations, [...] oil 0.01 % ear drops 2024 025 [facility], [address] [facility], [place], [address], 15:58:40 Patient TargetsNo targets recorded. Patient InstructionsNo [...] Sensorineur al hearing loss of bilateral ears 280155485 Active 2024 SRINI BELL [address] [facility], [place], [address], [facility] - [facility] 15:31:15 Chronic rhinitis 01810146 Active 2024 ARLETH CASPER MD [address] [facility],[place] [address], [place], [address], [facility] - [facility] 15:56:30 Bilateral tinnitus 2752316117998 Active 2024 ARLETH CASPER MD [address] [facility],[place] [address], [place], [address], [facility] - [facility] [place] 15:56:38 Itching of ear 799330431 Active 2024 ARLETH CASPER MD [address] [facility], [address] [facility], [place], [address], [facility] - [facility] [place] 15:58:07 Problem Notes None recorded. Procedures Surgical History Date Name Laterality Status Provider Name and Address Organization Details Recorded Time JMSNasal/Sinus Endoscopy completed ARLETH SHERMAN MD [address] [facility],[address], [address], [facility] - [facility] 04/15/2025 15:56:24 Comp Audio with Tymps - 39543 & 14595 completed SRINI BELL [address] [facility],[place] [address], [place], [address], [facility] - [facility] 04/15/2025 15:29:16 total knee replacement completed Laurel Madden [place] - [facility] 04/15/2025 15:44:58 Imaging Results None recorded. Procedure Notes None recorded. Medical Equipment None Reported. Allergies Allergen ID Allergen Name Allergen Category Reaction Reaction Severity Criticality Documentation Date Start Date Code Code System Note Provider Name and Address Organization Details Recorded Time 831468 Abilify medicatio n Not available Not available Not available 04/15/2025 17657 3 RxNorm Laureljarek sellers [place] [facility] 5 15:09:10 325897 Cymbalta medicatio n Not available Not available Not available 04/15/2025 14320 4 RxNorm Laurel sellers [place] [facility] 5 15:09:18 Medications Name Sig Start Date [...] Updated DateTime 04/15/2025 157.48 cm 34.4 kg/m2 98791.37 g Laurel Madden [place] [facility] 04/15/2025 15:12:58 Social History None recorded. Functional [...] Diagnosis SNOMED-CT Code Diagnosis ICD10 Code Diagnosis IMO Codes Diagnosis Note 02199 ARLETH CHILDS MD [facility] [address] [address] 04/15/2025 14:23:43 04/15/2025 16:18:58 Sensorineural hearing loss of bilateral ears 671314369 H90.3 98286540 Audiologic al evaluation results: Normal sloping to mild sensorineu ral hearing loss with excellent word recognitio n, bilaterall y. Tympanomet ry: Right Ear:Type A Left Ear:Type A Chronic rhinitis 6384658 6 J31.0 2545 Bilateral tinnitus [address] 102 H93.13 835917 Itching of ear 570554837 L29.9 1327985 Health Concerns Section Related Observation LastModified by Organization Detai ls LastModified Time None Recorded Concern Status LastModified by Organization Details LastModified Time None Recorded Advance Directives Directive None Recorded Payers Insurance Date Sequence Insurance Name Policy Number Policy Major Covered Member ID Major Member ID Guarantor Name 04/15/2025 1 [employer] - MEDICARE ADVANTAGE PLAN (MEDICARE REPLACEMENT HMO) [id number] Evelyne Claudio [id number] Evelyne Claudio Notes Date Note Type Note Provider Name and Address Organization Details Recorded Time 04/15/2025 text/html ROS as noted in the HPI 3 years ago she was hospitalized for [...] well as saline occasionally ARLETH SHERMAN MD [address] [place] [address], [address], [facility] - [facility] 04/15/2025 15:58:55 OBGyn Episode No OBEpisode recorded.
--- OUTSIDE RECORDS SUMMARY | 2025-09-08 18:02 | XMS_ITS | Patient Health Record ---
Author Organization [facility] Address [address] [facility] [place] [address] Care Team Providers Care Blanket Washer Name Role Phone Lilo Davis Primary Care Provider Unavailab dial Aria Dodd Unavailable [phone] Allergies Allergen (clinical drug ingredient) Drug/Non Drug [...] Problem Acquired hammer toe of right foot (8619107176635140 ) Other hammer toe(s) (acquired), right foot (M20.41) Active confirmed Problem Acquired hammer toe of left foot (3069440010074125 ) Other hammer toe(s) (acquired), left foot (M20.42) Active confirmed Problem Polyneuropathy due to type 2 diabetes mellitus (170748167) Type 2 diabetes mellitus with diabetic polyneuropathy (E11.42) Active confirmed Problem Smoker (47956607) Smoker (F17.200) Active confi rmed Problem Arthropathy associated with a neurological disorder (19054491) Charcot's joint of right foot (M14.671) Active confirmed Problem Diabetic neuropathic arthropathy (668874419) Diabetic Charcot's foot (E11.610) Active confirmed Vital Signs Blood pressure diastolic 63 mm Hg 04/19/2025 Height 5ft3in in 04/19/2025 Blood pressure systolic 120 mm Hg 04/19/2025 Weight 195 lbs 04/19/2025 BMI 34.54 kg/m2 04/19/2025 Procedures Procedure Date Ordered Date Performed Result Body Sit e 55523-NIXYELA NAIL, 6 OR MORE 04/19/2025 N/A 65728-Nozv Destruction, 1-14 04/19/2025 N/A 38541-ZOXM SKIN LESIONS, OVER 4 04/19/2025 N/A Encounters Encounter Location Date Provider Diagnosis [facility] [address] [place] [address] 07/26/2025 Aria Dodd [facility] [address] 04/19/2025 Aria Dodd Other hammer toe(s) (acquired), right foot M20.41 ; Type 2 diabetes mellitus with diabetic polyneuropathy E11.42 ; Other hammer toe(s) (acquired), left foot M20.42 ; Verruca pedis B07.0 ; Left foot pain M79.672 ; Onychomycosis B35.1 ; Diabetic Charcot's foot E11.610 ; Charcot's joint of right foot M14.671 ; Foot pain, right M79.671 and Bull[place] R23.[address] [address] 04/19/2025 Aria Dodd Assessments Encounter Date Diagnosis [...] X ray : Foot, right 3V 09/22/2013 76832-ICGCKQP NAIL, 6 OR MORE 01/26/2014 49476-JUASEES NAIL, 6 OR MORE 05/24/2015 89315-ZAXBZGQ NAIL, 6 OR MORE 04/29/2013 61002-NOHJYFQ NAIL, 6 OR MORE 07/14/2013 50154-KIKFMWK NAIL, 6 OR MORE 06/10/2015 79003-MJIABAY NAIL, 6 OR MORE 08/02/2015 29885-CHWUCQZ NAIL, 6 OR MORE 10/11/2020 21127-AKKXPTE NAIL, 6 OR MORE 04/11/2021 81138-QAKLMYE NAIL, 6 OR MORE 07/18/2023 95087-WMKICXG NAIL, 6 OR MORE 11/07/2023 18037-CJBOHLJ NAIL, 6 OR MORE 02/20/2024 97138-CBTJMEI NAIL, 6 OR MORE 04/19/2025 84468-Hdvl Destruction, 1-14 02/20/2024 34070-Ivea Destruction, 1-14 04/19/2025 31577-Acgs Destruction, 1-14 07/18/2023 27874-Lheg Destruction, 1-14 11/07/2023 20154-Jkpy Destruction, 1-14 10/11/2020 61458-IEAC SKIN LESIONS, OVER 4 10/11/20 20 82076-MRVB SKIN LESIONS, OVER 4 02/20/20 24 61738-KXXX SKIN LESIONS, OVER 4 11/07/19 24 26346-SKAT SKIN LESIONS, OVER 4 04/11/20 21 71580-PRFE SKIN LESIONS, OVER 4 07/18/20 23 87826-CTDL SKIN LESIONS, OVER 4 04/19/20 25 11231-WJJC SKIN LESIONS, 2 TO 4 08/02/20 15 83526-HLPR SKIN LESIONS, 2 TO 4 06/10/20 15 02780-GAQY SKIN LESIONS, 2 TO 4 04/29/20 13 97868-PXFP SKIN LESIONS, 2 TO 4 07/14/20 13 37131-IPBE SKIN LESIONS, 2 TO 4 05/24/20 15 08156-WMCJ SKIN LESIONS, 2 TO 4 01/27/20 14 91640- Removal of Foreign Body, Subcut 1 50,Y1979-FFQ TENDON SHEATH/LIGAMENT 0 07/01/201585409,N1307-TOR TENDON SHEATH/LIGAMENT 0 07/17/201316504,T0477-ZHC TENDON SHEATH/LIGAMENT 1 50,F2408-DTG TENDON SHEATH/LIGAMENT 1 Next Appt Details Provider Name:Aria Dodd , 09/09/2025 10:45:00 AM, [address] [facility], [place], [address], Insurance Providers Payer Name Payer Address Payer Phone Subscriber Number Group Number Insured Name Patient Relationship to Insured Coverage Start Date Coverage End Date [employer] [place] Medicare Advantage [facility] [address] [place] [address] [id number] Evelyne Claudio Self - patient is the [...] Date(Month/Year) [facility]erv[facility] 02/2023 [facility] [place] [facility] [employer] 11/2022 [facility] - right knee replacement 08/2022 Cervical spine surgery - [facility] 03/2022 [facility] - Infection removal [place] th-shaved bone 12/2021 pneumonia sm blood clot 07/09-
--- OUTSIDE RECORDS SUMMARY | 2025-09-08 18:02 | XMS_ITS | Encounter Summary ---
Author Organization [facility] Address [address] [place] [address] Care Team Providers Care Hospice Music Therapy Name Role Phone Domonique Gibson MD Unavailable [phone] Najma Fay PA-C Unavailable Jed Calix PA-C Unavailable [phone] Laura Car MD Primary Care Provider Unavailabl e Encounter Details Date Type Department Care Team Description 08/18/2024 SCAN [facility] Neurosurgery [place] [address] [id number] Najma Fay PA-C [address] [id number] Social History Tobacco Use Types Packs/Day Years [...] on filedocumented in this encounter Care Teams Hospice Music Therapy Relationship Specialty Start Date End Date Laura Car MD [address] [address] PCP - General Family Practice 08/25/24 Domonique Gibson MD [address] [phone] Surgeon Neurosurgery 01/02/22 Najma Fay PA-C 175 [facility] [address] [place] [id number] Specialist Neurosurgery 01/02/22 Jed Calix PA-C [address] [address] Specialist Neurosurgery 01/02/22 documented as of this encounter
--- OUTSIDE RECORDS SUMMARY | 2025-09-08 18:02 | XMS_ITS | Clinical Summary ---
Author Organization [facility] Address [address] [place] [phone] Phone Care Team Providers Care Community Marketing Manager Name Role Phone Getachew Toscano MD Unavailable Braxton Hernandez DPM, Erik Unavailable [phone] Allergies Active Allergy Reactions Criticality Noted Date [...] by mouth once daily 90 tablet 3 07/14/20 25 Active Active Problems Problem Noted Date [...] use of opioids 05/21/2013 Overview (10/17/2017): Overview: [facility] update Assessment & Plan (12/11/2024 4:00 PM [...] Encounters Date Type Department Care Team Description 08/03/20[facility] [address] [place] [address] Lynda Kumar MD Medication Refill 07/28/2025 [facility] [address] [place] [address] Lynda Kumar MD Medication Refill 07/14/2025 Refill [facility] [address] [place] [address] Lynda Kumar MD Medication Refill from Last [...] high school, GED, job training, learning the Jordanian language, technical skills, or developing parenting skills)? [...] Health Maintenance Due Date Last Done Comments SMOKING Hx and SMOKELESS TOBACCO SCREENING 1975 COLOGUARD 2007 FIT TEST 2007 FOBT 2007 SIGMOIDOSCOPY 2007 VIRTUAL COLONOSCOPY 2007 RSV VACCINE (1 - Risk 50-74 years 1-dose series) 2012 ZOSTER VACCINES (1 of 2) 2012 COLONOSCOPY 02/05/2020 02/04/2015 COLORECTAL CANCER SCREENING 02/05/2020 PNEUMOCOCCAL VACCINES (50+ years) (3 of 3 - PCV20 or PCV21) 07/19/2022 07/19/2017, 05/12/2015 PAP SMEAR 11/21/2023 11/21/2018, 10/29, 04/08/2015 URINE MICROALBUMIN/CREATININE RATIO 11/28/2023 11/28/2022, 07/21/2019, 07/29/2018, Additional history exists HEMOGLOBIN A1C 06/03/2024 12/04/2023, 02/0 04/2024, 08/02/2023, Additional history exists TSH LEVEL 12/04/2024 12/04/2023, 01/27, 02/16/2023, Additional history exists DIABETIC EYE EXAM 12/25/2024 12/26/2023, , 07/29/2018 INFLUENZA VACCINE (#1) 2025 , 10/28/2023, 08/02/2023, Additional history exists BLOOD PRESSURE 06/10/2025 12/11/2024 DEPRESSION SCREENING 06/25/2025 06/25/2024, 06/25/20 24 COVID-19 VACCINE ( season) 2025 03/14/2022, 08/23/2021, 02/03/2021, Additional history exists MAMMOGRAM 08/14/2025 08/14/2023, 07/28, 08/17/2020, Additional history exists Adult Td,Tdap Booster 01/11/2034 01/12/2024 , 03/17/2016, 01/24/2006 HEPATITIS C SCREENING Completed 05/19/2018 HIV ONE-TIME SCREENING (18-65 YEARS) Completed 08/06/2019 HEPATITIS A VACCINES Aged Out No long er eligible based on patient's age to complete this topic HIB VACCINES Aged Out No longer eligi ble based on patient's age to complete this topic IPV VACCINES Aged Out No longer eligi ble [...] arthropathy, without long-term current use of insulin THYROID STIMULATING HORMONE (TSH) Routine 12/04/2023 10:38 AM EST Acquired hypothyroidism MAMMOGRAPHY Routine 08/14/2023 OUTSIDE URINE MALB/CRE RATIO Routine 11/28/2022 OUTSIDE HIV Routine 08/06/2019 PAP TEST Routine 11/21/2018 12:00 AM EST OUTSIDE HEPATITIS C VIRUS SCREENING Routine 05/19/2018 COLONOSCOPY FOR RESULT ENTRY ONLY Routine 02/04/2015 from Last 3 Months or Most Recently Relevant to Health Maintenance Results * DIABETES EYE EXAM FOR RESULT ENTRY ONLY (12/26/2023 4:28 PM EST) us Historical Provider HEALTH MAINTENANCE Edited Result - Final * TSH (12/04/2023 10:38 AM EST) TSH 2.10 0.27 - 4.20 uIU/mL [facility] Blood 12/04/2023 10:3 8 AM EST 12/04/2023 10:44 AM EST Cayla Peñaloza NP LAB BLOOD BKR ORDERABLES Final Result [address] [address] * Hemoglobin A1c (12/04/2023 10:38 AM EST) HEMOGLOBIN A1C 5.2 4.3 - 5.8 % [facility] Blood 12/04/2023 10:3 8 AM EST 12/04/2023 10:44 AM EST Cayla Peñaloza NP LAB BLOOD BKR ORDERABLES Final Result Performing Organization Address City/[facility]/ZIP Co de Phone Number [address] [address] * HM MAMMOGRAPHY FOR RESULT ENTRY ONLY [...] SEE NARRATIVE - 11/27/2018 11:12 AM EST [address] [address] Phlebotomist Prn: Laurel Pugh MD [employer] DEVELOPER Cytology Report FINAL DIAGNOSIS A. PAP SMEAR [...] 52, 56, 58, 59, 66, 68) by [employer] HR-HPV analysis. Clinical correlation is advised. This HPV test was performed at [facility], [address] [place] [address]. This test has been FDA approved for [facility] cervical cytology specimens. The accuracy and precision of this test for all other specimen sources has been verified in the Cytopathology Laboratory of the [facility] and has not been cleared or approved by the U.S. Food and Drug Administration. Clinical correlation is advised. CLINICAL HISTORY Date of Last Menstrual Period: Not Provided Menstrual History: Post Menopausal Other Clinical Conditions: Screening Pap SPECIMEN SOURCE A: PAP SMEAR (SUREPATH) CE Patient Name: EVELYNE CLAUDIO : 1960 (Age: 58) Sex: F Institution: [facility] Location: [facility] Date of Collection: 11/21/2018 Date of Reported: 11/27/2018 11:12 Results to: Cayla Peñaloza MSN, BSN Cayla Peñaloza SCRUBBER SYSTEM ATTENDANT CYTOLOGY ORDERABLES Final Resul t SEE NARRATIVE * Outside Hepatitis C Virus Screening (05/19/2018) Hepatitis C Screening - External Neg Historical Provider LAB BLOOD ORDERABLES Madelaine l Result * COLONOSCOPY FOR RESULT ENTRY ONLY (02/04/2015) Colonoscopy . Historical Provider HEALTH MAINTENANCE Final Result from Last 3 Months or Most Recently Relevant to Health Maintenance Insurance [employer] [place] [employer] H[employer] REPLACEMENT [facility] MEDICARE HMO REPLACEMENT [facility] MEDICARE HMO REPLACEMENT [employer] [place] [employer] [facility] REPLACEMENT [facility] MEDICARE HMO REPLACEMENT [employer] [place] [employer] REPLACEMENT [employer] [place]PLACEMENT Member Subscriber Plan / Payer (Ef fective 2018-Present) Name:Evelyne Claudio Relation to Subscriber:Self Name:Evelyne Claudio Payer ID:Not on file Type:Medicare Address: [place] [id number] Care Teams Community Marketing Manager Relationship Specialty Start Date End Date Getachew Toscano MD [address] [place] [address] [place] [phone] Internal Medicine 02/17/20 Jun Limon DPM [address] [place] [phone] Podiatry 12/8/20 Additional Source Comments The information contained in this document represents components of the legal health record. It is not the complete legal health record.[facility]
== END 2025-09-08 14:33 | disposition home or self-care (01) ==
LOC: HO.HMGCX 14:32
DX: E11.9 Type 2 diabetes mellitus without complications (principal); N28.9 Disorder of kidney and ureter, unspecified
CPT/HCPCS: 76775; 82570

== ENCOUNTER → 2025-09-08 14:35 | Outpatient (BNV) | payer MEDICARE, SELFPAY | PROVIDERS: Visit Provider Specialist | DX: N28.9 Disorder of kidney and ureter, unspecified (principal) | CPT/HCPCS: 76775 ==

== ENCOUNTER 2025-09-10 13:51 | Outpatient (AMB) | payer MEDICARE, SELFPAY ==
--- NOTE | 2025-09-10 14:05 | MHC.PC.OV ---
Vital Signs 09/10/25 14:06 09/10/25 14:42 Height 5 ft 4 in Weight 179 lb BMI 30.7 BP 150/100 H 138/82 Blood Pressure Location Lt brachial Lt brachial Position Sitting Sitting Pulse 93 Pulse Source Pulse Oximeter Temp 98.3 F Temp Source Temporal Artery Scan Pulse Oximetry (%) 98 Oxygen Delivery Method Room Air Intake Visit Reasons: f/u pain management Accounting Tutor Required: No Solutions Executive Cloud Sales: Not Required per policy Accompanied by: Self / Same As Patient Allergies lisinopril Allergy (Intermediate, Verified 09/10/25 14:46) Swelling aripiprazole (From ABILIFY) Adverse Reaction (Intermediate, Verified 09/10/25 14:46) EDEMA duloxetine (From CYMBALTA) Adverse Reaction (Intermediate, Verified 09/10/25 14:46) WT GAIN/EDEMA Medication List - Last Reconciled 09/10/25 by Lilo Davis PA-C acetaminophen 1,000 mg PO TID PRN albuterol sulfate 90 mcg/actuation 1 puff inhalation Q4H amoxicillin-pot clavulanate 1,000-62.5 mg (Augmentin XR) 1 tab PO BID 10 days baclofen 10 mg PO BID 90 days blood sugar diagnostic (FreeStyle Lite Strips) bupropion HCl XL 300 mg PO DAILY cholecalciferol (vitamin D3) (Vitamin D3) 25 mcg PO DAILY [Diabetic shoe with inserts As directed] docusate sodium 100 mg PO BID furosemide 40 mg (2 x 20 mg) PO DAILY 90 days hydroxychloroquine 200 mg PO BID 90 days ibuprofen 600 mg PO Q8H PRN levothyroxine 88 mcg PO DAILY@0600 magnesium oxide 400 mg PO BEDTIME multivitamin 1 tab PO DAILY nystatin 1 appl topical BID omeprazole 20 mg PO DAILY@0630 oxybutynin chloride ER 10 mg PO DAILY oxycodone 10 mg PO TID PRN 28 days oxycodone ER (OxyContin) 15 mg PO BID PRN 28 days pregabalin 75 mg PO BID@0800,1200 30 days pregabalin 150 mg PO BEDTIME simvastatin 20 mg PO BEDTIME sulfasalazine 1 g (2 x 500 mg) PO BID 90 days NS trazodone 75 mg PO BEDTIME venlafaxine ER 150 mg PO DAILY Tobacco use date assessed: 07/23/25 Dental Screening Dental Screen Date: 09/10/25 HPI f/u pain management HPI Details 64-year-old female with past medical history of peripheral vascular disease, chronic bronchitis, rheumatoid arthritis, post-laminectomy syndrome, nicotine dependence last seen 06/2025 coming in for follow up. Presenting for follow-up on recent pneumonia and management of chronic, worsening pain. She was recently treated for pneumonia with antibiotics, but not steroids, and used her albuterol inhaler a couple of times a day. She has an upcoming appointment with a procurement engineer, Dr. Epstein, in September. The patient reports worsening chronic pain, particularly in her right leg, from the mid-selby down to the foot and toes, which she describes as stiff, heavy, and causing hot darts between her toes, waking her up at night. She has a history of Charcot foot and arthritis, and her back pain has worsened to the point where she cannot stand to wash dishes. The patient is reluctant to attend physical therapy due to severe pain and is concerned about obtaining adequate pain medication. She has been attempting to get an appointment with a pain management clinic since February without success. Her child day care center worker ordered bilateral ankle X-rays and blood work, which she plans to complete closer to her September appointment. [facility] Medical History Mass of right thigh Diabetes History of pulmonary embolism Nicotine dependence, cigarettes, uncomplicated Overactive bladder Thyroid disease Elevated cholesterol Spinal stenosis Anxiety Depression HTN (hypertension) Constipation GERD (gastroesophageal reflux disease) Long-term use of hydroxychloroquine Alcohol abuse Chronic bronchitis Seronegative rheumatoid arthritis Pilonidal cyst Neuropathy Carpal tunnel syndrome Rheumatoid arthritis Osteomyelitis Osteoarthritis Pleurisy Surgical History History of thoracic spinal fusion Hx of cervical spine surgery History of elbow surgery H/O colonoscopy History of total right knee replacement (TKR) H/O hernia repair History of surgery on arm History of left knee replacement (~2017) Previous back surgery (~2016) Family History Mother CHF (congestive heart failure) Stroke Uterine cancer Father CHF (congestive heart failure) Sister Diabetes Brother Diabetes Pulmonary embolism Other Mental health disorder Substance use disorder Social History Household Members: Significant Other Housing: Apartment Are you a primary dog daycare provider to a significant other at home: No Do you presently have visiting nurse or other home services: No Alcohol intake: current Alcohol intake frequency: 3 or more drinks per day Alcohol type: hard liquor Patient Tobacco Use Status: Current everyday Tobacco user Tobacco use type: Cigarette Cigarettes Per Day: 15 Years Smoked: 40 e-Cigarette/Vaping Use: Never Used Second Hand Smoke Exposure: Yes Substance Use Type: Marijuana Advance Directives Date on File: 05/10/25 service: No Current occupational status: unemployed Cognitive needs: Yes (walker, cane) Hearing needs: No Vision needs: Yes (Reading glasses) Questionnaire PHQ-9 Over the last 2 weeks, how often have you been bothered by any of the following problems? 1. Little interest or pleasure in doing things: several days 2. Feeling down, depressed, or hopeless: several days 3. Trouble falling or staying asleep, or sleeping too much: several days 4. Feeling tired or having little energy: several days 5. Poor appetite or overeating: several days 6. Feeling bad about yourself - or that you are a failure or have let yourself or your family down: several days 7. Trouble concentrating on things, such as reading the newspaper or watching television: several days 8. Moving or speaking so slowly that other people could have noticed. Or the opposite - being so fidgety or restless that you have been moving around a lot more than usual: more than half the days 9. Thoughts that you would be better off or of hurting yourself in some way: not at all Total score: 9 Depression Screening Interpretation: Positive Depression Screening Follow-up: Existing condition and In treatment Depression Screening Done: Yes Source: Developed by Drs. Giovanni Castelan, Teri Garcia, Erlin Houston and colleagues, with an educational bill from [employer]. Thrive Questionnaire Date Thrive assessed: 01/22/25 I am a: Patient What is your living situation today?: I have a steady place to live Within the past 12 months, did the food you bought not last and you didn't have the money to get more?: Never true Within the past 12 months, did you worry whether your food would run out before you got money to buy more?: Never true Do you have trouble paying for medicines?: No Do you have trouble getting transportation to medical appointments?: No Do you have trouble paying your heating and electricity bill?: No Do you have trouble taking care of your child, family member or friend?: Yes Do you have trouble with day-to-day activities such as bathing, preparing meals, shopping, managing finances, etc.?: Yes Are you currently unemployed and looking for a job?: No Are you interested in more education?: No Please select the resources that you would like help with: None Currently or been in a relationship where the following occur: No concerns reported THRIVE Score: 0 AUDIT C Alcohol Use Questionnaire (AUDIT-C) 1. How often do you have a drink containing alcohol?: Never 3. How often do you have six or more drinks on one occasion?: Never Total Score: 0 VENANCIO-7 AMB Questionnaire VENANCIO-7 Date VENANCIO - 7 assessed: 06/08/25 Source: Developed by Drs. Giovanni Castelan, Teri Garcia, Erlin Houston and colleagues, with an educational bill from [employer]. Review of Systems Const Denies body aches, Denies chills, Denies fever(s), Denies headache(s) and Denies poor appetite Eyes Reports no additional complaints ENT Denies dizziness and Denies headache(s) Card Denies chest pain, Denies edema, Denies lightheadedness and Denies dyspnea Resp Denies cough and Denies dyspnea GI Denies abdominal pain, Denies nausea and Denies vomiting Reports no additional complaints Musc Reports no additional complaints and Denies abnormal gait Skin/Breast Reports system reviewed and no additional complaints, except as documented Neuro Denies abnormal gait, Denies dizziness and Denies headache(s) Psych Reports no additional complaints Physical exam (Primary Care) Vital Signs: Last Vital Signs Temp 98.3 F 09/10/25 14:06 Pulse 93 09/10/25 14:06 BP 138/82 09/10/25 14:42 Pulse Ox 98 09/10/25 14:06 Oxygen Delivery Method Room Air 09/10/25 14:06 BMI result Body Mass Index 30.7 Tobacco/Smoking Status: Tobacco use Status Tobacco use date assessed 07/23/25 09/10/25 14:11 Patient Tobacco Use Status Current everyday Tobacco 09/10/25 14:11 Tobacco use type Cigarette 09/10/25 14:11 e-Cigarette/Vaping Use Never Used 09/10/25 14:11 PHQ-9: PHQ-9 Score PHQ-9: Total score 9 09/10/25 15:02 Depression Screening Interpretation: Positive Depression Screening Follow-up: Existing condition and In treatment Thrive Assessment: Date of Thrive Assessment Date Thrive assessed 01/22/25 09/10/25 14:11 Currently or been in a relationship where the following occur: No concerns reported Const General: cooperative, healthy appearing, comfortable and no acute distress Orientation/consciousness: patient oriented x3 HENMT Head: Yes normocephalic Ears: hearing grossly normal bilaterally General nose exam: Normal external nose present Eyes General: appearance normal, both eyes and all related structures Conjunctivae: conjunctivae normal Neck Neck: Yes full ROM and Yes no lymphadenopathy Resp Effort & Inspection: normal respiratory effort Auscultation: clear to auscultation bilaterally, no crackles, no rales, no rhonchi and no wheezes Cardio Rate: regular rate Rhythm: regular rhythm Skin General skin exam: no rashes or lesions noted Neuro General: patient oriented x3 Gait exam (Neuro): Normal gait present Extrem General: Yes normal to inspection, Yes full ROM and No edema Psych Affect: normal affect Attitude: cooperative Insight: Good insight present (Psych) Judgement: Good judgement present (Psych) Office Procedures Flu Questionnaire Does the patient have a severe egg allergy?: No Does the patient have severe life threatening allergies?: No Does the patient have a fever or illness today?: No Has the patient ever had Guillain-[place] Syndrome?: No Has the patient ever had any past reaction to a flu shot?: No Immunizations Fluarix [id number] (PF) 45 mcg (15 mcg x 3)/0.5 mL IM syringe Performing Provider: Lilo Davis PA-C [facility] Administered by: Yuli Nazario LPN on 09/10/25 15:02 Dose Route Admin Location Dispensed Lot Number Expiration Date [facility] Vmware Engineer 0.5 mL IM Right Deltoid 0.5 mL [id number] 04/26/26 [id number] [employer] VIS Given Date VIS Provided VIS Publication Date 09/10/25 Single Vaccine 24 Eligibility Eligibility Date Funding Source Not [facility] Eligible 09/10/25 Private Coding Level of Care Code Est Pt Level 3 (31609) Diagnoses Chronic pain syndrome G89.4 Seronegative rheumatoid arthritis M06.00 Peripheral neuropathy G62.9 Chronic bronchitis J42 Assessment & Plan Assessment & Plan (1) Chronic pain syndrome: Code(s): G89.4 - Chronic pain syndrome Category: Medical Plan: The patient's chronic pain in her back, hands, and right lower extremity has worsened, significantly limiting her daily activities. She declines physical therapy due to pain and has been unable to secure an appointment with a paint mixer hand. Pregabalin will be continued, and other pain medications will be refilled. I will personally contact the pain management clinic to facilitate an appointment. The patient will proceed with bilateral ankle X-rays as ordered by her child day care center worker, whom she will see in September. I personally called [facility] pain management today and faxed Patient information and they agreed to call to schedule appointment the patient (2) Seronegative rheumatoid arthritis: Comment: seroneg dx 2019. MTX (wasn't done due to alcohol abuse) HCQ 2019 SSZ added 07/2023 effective Code(s): M06.00 - Rheumatoid arthritis without rheumatoid factor, unspecified site Category: Medical Plan: Continue to follow with Rheumatology. (3) Peripheral neuropathy: Code(s): G62.9 - Polyneuropathy, unspecified Category: Medical Plan: Continue on current dose of pregabalin as she finds this increased dose has been more helpful. (4) Chronic bronchitis: Comment: She has recurrent cough due to recurrent bronchitis and this is definitely related to ongoing smoking. Has somewhat increased symptoms in the last 1 week, May have mild acute on chronic bronchitis. [place] must quit smoking . Albuterol HFa 2 puffs q 4=6 hrs PRN . Scheduled to have PFT. will recheck in 2 months . Code(s): J42 - Unspecified chronic bronchitis Category: Medical Plan: Patient has a appointment with pulmonology coming up. Plan This note was constructed using voice recognition software. While every effort has been made to ensure accuracy and school fundraising director, still areas may have been included sometimes these areas may affect the content or meeting of the given symptoms. Total time spent caring for the patient today was 20 minutes. This includes time spent before the visit reviewing the chart, time spent during the visit, and time spent after the visit and documentation. Patient was informed and verbally consented to the use of an ambient scribe for clinic note documentation during this visit. Orders: Orders Lipid Panel Today E78.00 - Pure hypercholesterolemia, unspecified Hemoglobin A1c Today E11.65 - Type 2 diabetes mellitus with hyperglycemia Influenza [id number] Immunization Today Z23 - Encounter for immunization Referrals Pain Management Referral G62.9 - Polyneuropathy, unspecified, G89.29 - Other chronic pain, G89.4 - Chronic pain syndrome, M54.2 - Cervicalgia, M54.50 - Low back pain, unspecified, M54.9 - Dorsalgia, unspecified, M96.1 - Postlaminectomy syndrome, not elsewhere classified Medications: Discontinued amoxicillin-pot clavulanate 1,000-62.5 mg (Augmentin XR) Discontinued Reason: Patient no longer taking 1 tab PO BID 10 days 20 tabs 0RF
[2025-09-10 14:06] VITALS: BP 150/100; PULSE 93; TEMP 36.8; O2SAT 98; BMI 30.7
[2025-09-10 14:42] VITALS: BP 138/82
--- OUTSIDE RECORDS SUMMARY | 2025-09-10 20:22 | XMS_ITS | Clinical Summary ---
Author Organization [facility] Address [address] [place] [address] Care Team Providers Care Wire Brusher Name Role Phone Cayla Peñaloza NP Primary Care Provider [phone] Allergies Active Allergy Reactions Criticality Noted Date [...] metroNIDAZOLE (FLAGYL) 500 MG tabletIndicatio ns:Abscess of stove refinisher space of mouth Take 1 tablet (500 mg total) by mouth 2 (two) times a day. Take with meals or food to reduce stomach upset. 44 tablet 2 Active cephalexin (KEFLEX) 500 MG capsuleIndicati ons:Abscess of stove refinisher space of mouth Take 2 capsules (1,000 mg total) by mouth 2 (two) times a day. 88 capsule 2 Active baclofen (LIORESAL) 5 MG tabletIndicatio ns:Abscess of stove refinisher space of mouth Take 3 tablets (15 [...] Problem Noted Date Diagnosed Date Abscess of stove refinisher space of mouth 01/16/2022 Overview (01/16/2022): Added automatically from request for surgery [id number] Facial abscess 01/16/2022 Family History Medical History [...] patient's age to complete this topic Insurance [facility] Advance Directives * Full Code (Latest Code Status on File) Date Activated Date Inactivated Comments 01/16/2022 11:40 PM Care Teams Wire Brusher Relationship Specialty Start Date End Date Cayla Peñaloza NP [address] [place] [address] PCP - General Family Medicine 01/16/22
--- OUTSIDE RECORDS SUMMARY | 2025-09-10 20:23 | XMS_ITS | Encounter Summary ---
Author Organization [facility] Address [address] [place] [address] Care Team Providers Care Mold Filling Operator Name Role Phone Domonique Gibson MD Unavailable [phone] Najma Fay PA-C Unavailable [phone] Jed Calix PA-C Unavailable Cayla Peñaloza NP Primary Care Provider Unavailabl e [facility], [facility], Pcp Primary Care Provider UnavailJim Hines Primary Care Provider Unavaila Laura Grey MD Primary Care Provider Unavailabl e Encounter Details Date Type Department Care Team Description 04/11/2023 SCAN [facility] Neurosurgery [place] [address] [address] Domonique Gibson MD 175 [place] [address] Social History Tobacco Use Types Packs/Day Years [...] on filedocumented in this encounter Care Teams Mold Filling Operator Relationship Specialty Start Date End Date Cayla Peñaloza NP [address] [address] PCP - General Internal Medicine 01/31/22 05/25/24 [facility], [facility], Pcp [address] [address] PCP - General Internal Medicine 05/26/24 07/28/24 Jim Tan [address] [address] PCP - General Internal Medicine 07/29/24 08/05/24 Laura Car MD [address] [address] PCP - General Family Practice 08/25/24 Domonique Gibson MD [address] [address] Surgeon Neurosurgery 01/02/22 Najma Fay PA-C [address] [address] Specialist Neurosurgery 01/02/22 Jed Calix PA-C [address] [address] Specialist Neurosurgery 01/02/22 documented as of this encounter
--- OUTSIDE RECORDS SUMMARY | 2025-09-10 20:23 | XMS_ITS | Encounter Summary ---
Author Organization [facility] Address [address] [place] [address] Care Team Providers Care Radio Television Announcer Name Role Phone Domonique Gibson MD Unavailable [phone] Najma Fay PA-C Unavailable Jed Calix PA-C Unavailable Cayla Peñaloza NP Primary Care Provider Unavailabl e [facility], Pcp Primary Care Provider UnavailJim Hines Primary Care Provider Unavaila Laura Grey MD Primary Care Provider Unavailabl e Encounter Details Date Type Department Care Team Description 04/04/2023 SCAN [facility] Neurosurgery [place] [address] [address] Najma Fay PA-C [address] [address] Social History Tobacco Use Types Packs/Day Years [...] on filedocumented in this encounter Care Teams Radio Television Announcer Relationship Specialty Start Date End Date Cayla Peñaloza NP [address] [address] PCP - General Internal Medicine 01/31/22 05/25/24 [facility], Pcp [address] [address] PCP - General Internal Medicine 05/26/24 07/28/24 Jim Tan [address] [address] PCP - General Internal Medicine 07/29/24 08/05/24 Laura Car MD [address] [address] PCP - General Family Practice 08/25/24 Domonique Gibson MD [address] [address] Surgeon Neurosurgery 01/02/22 Najma Fay PA-C [address] [address] Specialist Neurosurgery 01/02/22 Jed Calix PA-C [address] [address] Specialist Neurosurgery 01/02/22 documented as of this encounter
--- OUTSIDE RECORDS SUMMARY | 2025-09-10 20:23 | XMS_ITS | Encounter Summary ---
Author Organization [facility] Address [address] [place] [address] Care Team Providers Care Bell Valet Name Role Phone Domonique Gibson MD Unavailable [phone] Najma Fay PA-C Unavailable Jed CalixC Unavailable Cayla Peñaloza NP Primary Care Provider Unavailabl e [facility], Pcp Primary Care Provider UnavailJim Hines Primary Care Provider Unavaila Laura Grey MD Primary Care Provider Unavailabl e Encounter Details Date Type Department Care Team Description 03/08/2023 Telephone [facility] [address] [address] Yu Hernández MD 175 [place] [address] Social History Tobacco Use Types Packs/Day Years [...] on filedocumented in this encounter Care Teams Bell Valet Relationship Specialty Start Date End Date Cayla Peñaloza NP [address] [address] PCP - General Internal Medicine 01/31/22 05/25/24 [facility], Pcp [address] [address] PCP - General Internal Medicine 05/26/24 07/28/24 Jim Tan [address] [address] PCP - General Internal Medicine 07/29/24 08/05/24 Laura Car MD [address] [address] PCP - General Family Practice 08/25/24 Domonique Gibson MD [address] [address] Surgeon Neurosurgery 01/02/22 Najma Fay PA-C [address] [address] Specialist Neurosurgery 01/02/22 Jed Calix PA-C [address] [address] Specialist Neurosurgery 01/02/22 documented as of this encounter
--- OUTSIDE RECORDS SUMMARY | 2025-09-10 20:23 | XMS_ITS | Encounter Summary ---
Author Organization [facility] Address [address] [place] [address] Care Team Providers Care Holistic Specialist Name Role Phone Domonique Gibson MD Unavailable [phone] Najma Fay PA-C Unavailable Jed Calix PA-C Unavailable Laura Car MD Primary Care Provider Unavailabl e Encounter Details Date Type Department Care Team Description 08/20/2024 SCAN [facility] Neurosurgery [place] [address] [id number] Najma Fay PA-C [address] [id number] Social History Tobacco Use Types Packs/Day Years [...] on filedocumented in this encounter Care Teams Holistic Specialist Relationship Specialty Start Date End Date Laura Car MD [address] [address] PCP - General Family Practice 08/25/24 Domonique Gibson MD [address] [address] Surgeon Neurosurgery 01/02/22 Najma Fay PA-C 175 [facility] [address] [place] [address] Specialist Neurosurgery 01/02/22 Jed Calix PA-C [address] [address] Specialist Neurosurgery 01/02/22 documented as of this encounter
--- OUTSIDE RECORDS SUMMARY | 2025-09-10 20:23 | XMS_ITS | Encounter Summary ---
Author Organization [facility] Address [address] [place] [address] Care Team Providers Care Executive Secretary Name Role Phone Domonique Gibson MD Unavailable [phone] Najma Fay PA-C Unavailable Jed Calix PA-C Unavailable [phone] Cayla Peñaloza NP Primary Care Provider Unavailabl e [facility], Pcp Primary Care Provider UnavailJim Hines Primary Care Provider Unavaila Laura Grey MD Primary Care Provider Unavailabl e Encounter Details Date Type Department Care Team Description 04/04/2023 SCAN [facility] Neurosurgery [place] [address] [address] Domonique Gibson MD 175 [place] [address] Social History Tobacco Use Types Packs/Day Years [...] on filedocumented in this encounter Care Teams Executive Secretary Relationship Specialty Start Date End Date Cayla Peñaloza NP [address] [address] PCP - General Internal Medicine 01/31/22 05/25/24 [facility], Pcp [address] [address] PCP - General Internal Medicine 05/26/24 07/28/24 Jim Tan [address] [address] PCP - General Internal Medicine 07/29/24 08/05/24 Laura Car MD [address] [address] PCP - General Family Practice 08/25/24 Domonique Gibson MD [address] [address] Surgeon Neurosurgery 01/02/22 Najma Fay PA-C [address] [address] Specialist Neurosurgery 01/02/22 Jed Calix PA-C [address] [address] Specialist Neurosurgery 01/02/22 documented as of this encounter
--- OUTSIDE RECORDS SUMMARY | 2025-09-10 20:23 | XMS_ITS | Data Portability ---
Author Organization [place] [facility] Address [address] [place] [address] Care Team Providers Care Esl Instructional Assistant Name Role Phone LAZARO BONDS Primary Care Provider [phone] LAZARO BONDS Referring Provider [phone] Assessment Encounter Date Assessment Date Assessment LastModified by Organization Details LastModified Time 04/15/2025 04/15/2025 Patient with bilateral tinnitus that is occasionally pulsatile but in both ears. No evidence of bruits. Audiometric testing shows mild high-frequency hearing loss bilaterally. She does have some TMJ tenderness and poor dentition also has nasal congestion and overuse of eqrg-tdj-emomgon decongestant preparations. I have recommended saline irrigations, [...] oil 0.01 % ear drops 2024 025 [facility], [address] [facility], [place], [address], 15:58:40 Patient TargetsNo targets recorded. Patient InstructionsNo [...] Sensorineur al hearing loss of bilateral ears [id number] Active 2024 SRINI BELL [address] [facility], [place], [address], [facility] - [facility] [place] 15:31:15 Chronic rhinitis 50909168 Active 2024 ARLETH CASPER MD [address] [facility],[place] [address], [place], [address], [facility] - [facility] 15:56:30 Bilateral tinnitus 1572013348335 Active 2024 ARLETH CASPER MD [address] [facility],[place] [address], [place], [address], [facility] - [facility] [place] 15:56:38 Itching of ear 374750943 Active 2024 ARLETH CASPER MD [address] [facility], [facility], [place], [address], [facility] - [facility] [place] 15:58:07 Problem Notes None recorded. Procedures Surgical History Date Name Laterality Status Provider Name and Address Organization Details Recorded Time JMSNasal/Sinus Endoscopy completed ARLETH SHERMAN MD [address] [facility],[address], [address], [facility] - [facility] [place] 04/15/2025 15:56:24 Comp Audio with Tymps - 83550 & 88411 completed SRINI BELL [address] [facility],[place] [address], [place], [address], [facility] - [facility] [place] 04/15/2025 15:29:16 total knee replacement completed Laurel Madden [place] - [facility] [place] 04/15/2025 15:44:58 Imaging Results None recorded. Procedure Notes None recorded. Medical Equipment None Reported. Allergies Allergen ID Allergen Name Allergen Category Reaction Reaction Severity Criticality Documentation Date Start Date Code Code System Note Provider Name and Address Organization Details Recorded Time 881906 Abilify medicatio n Not available Not available Not available 04/15/2025 36849 3 RxNorm Laureljarek sellers [place] [facility] 5 15:09:10 244193 Cymbalta medicatio n Not available Not available Not available 04/15/2025 63993 4 RxNorm Laurel sellers [place] [facility] 5 15:09:18 Medications Name Sig Start Date [...] Available No t Available OxyContin 10 mg tablet,candcae h resistant,e xtended release TAKE 1 TABLET BY MOUTH THREE TIMES DAILY NEEDED FOR PAIN 04/15 completed Not Available Not Available Not Available Vitals Date Recorded Body height Body mass index (BMI) Body weight Provider Name and Address Organization Details Last Updated DateTime 04/15/2025 157.48 cm 34.4 kg/m2 27327.37 g Laurel Madden [place] [facility] 04/15/2025 15:12:58 Social History None recorded. Functional [...] ICD10 Code Diagnosis IMO Codes Diagnosis Note [id number] ARLETH CHILDS MD [facility] [address] [address] 04/15/2025 14:23:43 04/15/2025 16:18:58 Sensorineural hearing loss of bilateral ears 172485937 H90.3 [id number] Audiologic al evaluation results: Normal sloping to mild sensorineu ral hearing loss with excellent word recognitio n, bilaterall y. Tympanomet ry: Right Ear:Type A Left Ear:Type A Chronic rhinitis 0695241 6 J31.0 2545 Bilateral tinnitus [address] 102 H93.13 940794 Itching of ear 583846751 L29.9 1668801 Health Concerns Section Related Observation LastModified by Organization Detai ls LastModified Time None Recorded Concern Status LastModified by Organization Details LastModified Time None Recorded Advance Directives Directive None Recorded Payers Insurance Date Sequence Insurance Name Policy Number Policy Major Covered Member ID Major Member ID Guarantor Name 04/15/2025 1 [employer] - MEDICARE ADVANTAGE PLAN (MEDICARE REPLACEMENT HMO) [id number] Evelyne Claudio [id number] Evelyne Claudio Notes Date Note Type Note [...] well as saline occasionally ARLETH SHERMAN MD [address] [place] [address], [address], [facility] - [facility] 04/15/2025 15:58:55 OBGyn Episode No OBEpisode recorded.
--- OUTSIDE RECORDS SUMMARY | 2025-09-10 20:23 | XMS_ITS | Clinical Summary ---
Author Organization [address] [facility] Address [address] [place] [address] Phone Care Team Providers Care Neighborhood Service Center Director Name Role Phone Lilo Davis Primary Care Provider [phone] Allergies Active Allergy Reactions Criticality Noted Date [...] (as needed to ambulate). 1 each 4 Active oxyCODONE (OXY-IR) 5 mg immediate release [...] getting referral to cardiology Dr. Taylor at [facility]. She has history of lymphedema, [...] compression wi th myelopathy ([facility] V24, [facility] V28) 03/12/2023 Overview (08/31/2024): Last Assessment [...] ritis of multiple joints ([facility] V24, [facility] V28) 04/20/2020 Overview (08/31/2024): Last Assessment & Plan: Managed by rheumatology, taking hydroxychloroquine and sulfasalazine Pyogenic inflammation of bone ([facility] V24, [facility] V28) 12/02/2019 Lichen sclerosus 07/29/2018 Slow [...] 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 ([facility] V24, [facility] V28) 10/17/2017 Overview (08/31/2024): Last Assessment & Plan: Labs as ordered for treatment evaluation, she notes very sedentary lifestyle Status post total left knee replacement 10/17/20 17 Depression, major, recurrent , in partial remission ([facility] V24) 06/02/2015 Major depressive disorder, r ecurrent episode, in partial remission ([facility] V24) 06/18/2013 Opioid type dependence ([facility] V24, [facility] V28 ) 05/21/2013 Overview (08/31/2024): IMO update Alcohol abuse 04/03/2012 Back pain 04/03/2012 DJD (degenerative joint disease) of knee 012 Hypercholesteremia 04/03/2012 Hypertension 04/03/2012 Obesity 04/03/2012 Tobacco dependence 04/03/2012 Immunizations Immunization Administration Dates Next Due Influenza [...] co ntrolled, with complications ([facility]/HCC V24, [facility] V28) DX:Diabetes mellitus type 2, controlled, with complications ([facility]) Esophageal reflux DX:Esophageal reflux Anxiety state DX:Anxiety state Depressive disorder DX:Depressiv e disorder Hyperlipidemia DX:Hyperlipidemi a Essential hypertension DX:Essent ial hypertension Rheumatoid arthritis (CMS/ C V24, CMS/HCC V28) DX:Rheumatoid arthritis ([facility] ); COMMENT: Severe in the right knee; [...] Date Smoking Tobacco: Every Day Cigarettes 1.5 44.9 Started: 1980 Passive Smoke Exposure: Past Smokeless [...] Last Done Comments Breast Cancer Screening 1962 Colorectal Cancer Screening: Colonoscopy 1962 Diabetes: Annual Foot Exam 1972 Diabetes: Annual Retina Eye Exam 1972 Hepatitis A Vaccines (1 of 2 - Risk 2-dose series) 1981 Cervical Cancer Screening: Pap Smear 1983 RSV Immunization Adult Patients (1 - Risk 50-74 years 1-dose series) 2012 Zoster Vaccines (1 of 2) 2012 HIV Screening 09/25/2022 Hepatitis C Screening 09/25/2022 Lung Cancer Screening (Low Dose CT) 09/25/2022 Medicare Annual Wellness Visit 09/25/2022 Social Influencers of Health Screening 09/25/2022 Diabetes: Annual Urine Albumin-Creatinine Ratio (uACR) 08/10/2024 [...] exists Cholesterol Screening (Lipid Panel) 12/04/2028 12/04/2023 DTaP,Tdap,and [...] needed on impact of smoking on wound No Sandra Briggs RN Patient and Caregiver Understand Wound Care Education Care Plan Education needed related to ulceration/compr omised skin integrity. No Sandra Briggs RN Medical Devices Implanted Type Area Cloth Burler Device Identifier Shelf Expiration Date Model / Serial / Lot Joints Knee Joints Knee Bilateral : Knee Procedures Procedure Name Priority Date/Time Associated Diagnosis Comments ANNUAL BMP BLOOD TEST Routine 12/04/2023 HEMOGLOBIN A1C Routine 12/04/2023 LIPID PANEL Routine 12/04/2023 from Last 3 Months or Most Recently Relevant to Health Maintenance Results * Annual BMP Blood Test (12/04/2023) Pathologist [facility] Annual BMP Blood Test Abstarcted [facility] Provider MD HEALTH MAINTENANCE Final Result * Hemoglobin A1c (12/04/2023) Pathologist [facility] Hemoglobin A1C 0.0 % Comment:No Interpretation, A bstracted Blood Venous blood specimen / Unknown [facility] Provider MD LAB BLOOD ORDERABLES Madelaine l Result * Lipid panel (12/04/2023) Pathologist [facility] LDL/HDL Ratio 0 Comment:No Interpretation, A bstracted Triglycerides 0 mg/dL Comment:No Interpretation, A bstracted Cholesterol 0 mg/dL Comment:No Interpretation, A bstracted HDL 0 mg/dL Comment:No Interpretation, A bstracted LDL Cholesterol 0 mg/dL Comment:No Interpretation, A bstracted Blood Venous blood specimen / Unknown [facility] Provider LAB BLOOD ORDERABLES Madelaine l Result from Last 3 Months or Most Recently Relevant to Health Maintenance Additional Health Concerns Active Problems Noted Date Diagnosed Date Impaired Tissue 09/22/2024 Education needed on impact of smoking on wound 1 11/22/2023 Education needed related to ulceration/compromised skin integrity. 09/22/2024 Insurance [employer] MEDICARE ADVANTAGE Care Teams Neighborhood Service Center Director Relationship Specialty Start Date End Date Lilo Davis PA [address] [facility], [address] [place] [address] PCP - General 02/01/25
--- OUTSIDE RECORDS SUMMARY | 2025-09-10 20:23 | XMS_ITS | Encounter Summary ---
Author Organization [facility] Address [address] [place] [address] Care Team Providers Care Technical Services Specialist Name Role Phone Domonique Gibson MD Unavailable [phone] Najma Fay PA-C Unavailable Jed Calix PA-C Unavailable Cayla Peñaloza NP Primary Care Provider Unavailabl e [facility], Pcp Primary Care Provider UnavailJim Hines Primary Care Provider Unavaila Laura Grey MD Primary Care Provider Unavailabl e Encounter Details Date Type Department Care Team Description 07/25/2023 SCAN [facility] Medical [facility] Neurosurgery [place] [address] [address] Domonique Gibson MD 175 [place] [address] Social History Tobacco Use Types Packs/Day Years [...] on filedocumented in this encounter Care Teams Technical Services Specialist Relationship Specialty Start Date End Date Cayla Peñaloza NP [address] [address] PCP - General Internal Medicine 01/31/22 05/25/24 [facility], Pcp [address] [address] PCP - General Internal Medicine 05/26/24 07/28/24 Jim Tan [address] [address] PCP - General Internal Medicine 07/29/24 08/05/24 Laura Car MD [address] [address] PCP - General Family Practice 08/25/24 Domonique Gibson MD [address] [address] Surgeon Neurosurgery 01/02/22 Najma Fay PA-C [address] [address] Specialist Neurosurgery 01/02/22 Jed Calix PA-C [address] [address] Specialist Neurosurgery 01/02/22 documented as of this encounter
--- OUTSIDE RECORDS SUMMARY | 2025-09-10 20:23 | XMS_ITS | Encounter Summary ---
Author Organization [facility] Address [address] [place] [address] Care Team Providers Care Overhead Cleaner Maintainer Name Role Phone Domonique Gibson MD Unavailable [phone] Najma Fay PA-C Unavailable Jed Calix PA-C Unavailable Cayla Peñaloza NP Primary Care Provider Unavailabl e [facility], Pcp Primary Care Provider UnavailJim Hines Primary Care Provider Unavaila Laura Grey MD Primary Care Provider Unavailabl e Encounter Details Date Type Department Care Team Description 05/17/2023 SCAN [facility] Medical [facility] Neurosurgery [place] [address] [address] Domonique Gibson MD 175 [place] [address] Social History Tobacco Use Types Packs/Day Years [...] on filedocumented in this encounter Care Teams Overhead Cleaner Maintainer Relationship Specialty Start Date End Date Cayla Peñaloza NP [address] [address] PCP - General Internal Medicine 01/31/22 05/25/24 [facility], Pcp [address] [address] PCP - General Internal Medicine 05/26/24 07/28/24 Jim Tan [address] [address] PCP - General Internal Medicine 07/29/24 08/05/24 Laura Car MD [address] [address] PCP - General Family Practice 08/25/24 Domonique Gibson MD [address] [address] Surgeon Neurosurgery 01/02/22 Najma Fay PA-C [address] [address] Specialist Neurosurgery 01/02/22 Jed Calix PA-C [address] [address] Specialist Neurosurgery 01/02/22 documented as of this encounter
--- OUTSIDE RECORDS SUMMARY | 2025-09-10 20:24 | XMS_ITS | Encounter Summary ---
Author Organization [facility] Address [address] [place] [address] Care Team Providers Care School Boat Driver Name Role Phone Domonique Gibson MD Unavailable [phone] Najma Fay PA-C Unavailable [phone] Jed Calix PA-C Unavailable [phone] Laura Car MD Primary Care Provider Unavailabl e Encounter Details Date Type Department Care Team Description 08/20/2024 SCAN [facility] Medical [facility] Neurosurgery [place] [address] [phone] Najma Fay PA-C [address] [phone] Social History Tobacco Use Types Packs/Day Years [...] on filedocumented in this encounter Care Teams School Boat Driver Relationship Specialty Start Date End Date Laura Car MD [address] [address] PCP - General Family Practice 08/25/24 Domonique Gibson MD [address] [phone] Surgeon Neurosurgery 01/02/22 Najma Fay PA-C 175 [facility] [address] [place] [address] Specialist Neurosurgery 01/02/22 Jed Calix PA-C [address] [address] Specialist Neurosurgery 01/02/22 documented as of this encounter
--- OUTSIDE RECORDS SUMMARY | 2025-09-10 20:24 | XMS_ITS | Encounter Summary ---
Author Organization [facility] Address [address] [place] [address] Care Team Providers Care Cephalometric Technician Name Role Phone Jim Tan Primary Care Provider Domonique Chavira MD Unavailable [phone] Najma Fay PA-C Unavailable [phone] Jed Calix PA-C Unavailable [phone] Cayla Peñaloza NP Primary Care Provider Unavailashkan mcintosh [facility], Pcp Primary Care Provider UnavailJim Hines Primary Care Provider Laura Antunez MD Primary Care Provider Unavailashkan mcintosh Encounter Details Date Type Department Care Team Description 05/23/2015 MARZIPAN MAKER/[facility] Report Medical Records [address] [place] [address] Abstract, Provider Social History Tobacco Use Types [...] on filedocumented in this encounter Care Teams Cephalometric Technician Relationship Specialty Start Date End Date Jim Tan PCP - General Internal Medicine 02/28/12 01/30/22 Cayla Peñaloza, TAMIA [address] [address] PCP - General Internal Medicine 01/31/22 05/25/24 Community, Pcp [address] [address] PCP - General Internal Medicine 05/26/24 07/28/24 Jim Tan PCP - General Internal Medicine 07/29/24 08/05/24 Laura Car MD [address] [address] PCP - General Family Practice 08/25/24 Domonique Gibson MD [address] [address] Surgeon Neurosurgery 01/02/22 Najma Fay PA-C [address] [address] Specialist Neurosurgery 01/02/22 Jed Calix PA-C [address] [address] Specialist Neurosurgery 01/02/22 documented as of this encounter
--- OUTSIDE RECORDS SUMMARY | 2025-09-10 20:24 | XMS_ITS | Encounter Summary ---
Author Organization [facility] Address [address] [place] [address] Care Team Providers Care Deputy Clerk Of Superior Court Name Role Phone Jim Tan Primary Care Provider Domonique Chavira MD Unavailable [phone] Najma Fay PA-C Unavailable [phone] Jed Calix PA-C Unavailable [phone] Cayla Peñaloza NP Primary Care Provider Unavailashkan e [facility], Pcp Primary Care Provider Unavailashkan e Jim Tan Primary Care Provider Laura Antunez MD Primary Care Provider Unavailabl e Encounter Details Date Type Department Care Team Description 01/02/2022 Transfer Records [facility] Neurosurgery [place] [address] [address] Najma Fay PA-C [address] [id number] Social History Tobacco Use Types Packs/Day Years [...] on filedocumented in this encounter Care Teams Deputy Clerk Of Superior Court Relationship Specialty Start Date End Date Jim Tan PCP - General Internal Medicine 02/28/12 01/30/22 Cayla Peñaloza NP [address] [address] PCP - General Internal Medicine 01/31/22 05/25/24 [facility], Pcp [address] [address] PCP - General Internal Medicine 05/26/24 07/28/24 Jim Tan PCP - General Internal Medicine 07/29/24 08/05/24 Laura Car MD [address] [address] PCP - General Family Practice 08/25/24 Domonique Gibson MD [address] [address] Surgeon Neurosurgery 01/02/22 Najma Fay PA-C [address] [address] Specialist Neurosurgery 01/02/22 Jed Calix PA-C [address] [address] Specialist Neurosurgery 01/02/22 documented as of this encounter
--- OUTSIDE RECORDS SUMMARY | 2025-09-10 20:24 | XMS_ITS | Encounter Summary ---
Author Organization [facility] Address [address] [place] [address] Care Team Providers Care Fiber Optic Assembly Worker Name Role Phone Jim Tan Primary Care Provider Domonique Chavira MD Unavailable [phone] Najma Fay PA-C Unavailable [phone] Jed Calix PA-C Unavailable [phone] Cayla Peñaloza NP Primary Care Provider Unavailabl e [facility], Pcp Primary Care Provider Unavailabl e Jim Tan Primary Care Provider UnavailLaura Quiroga MD Primary Care Provider Unavailabl e Reason for Visit * Reason Onset Date Comments Prior Authorization 12/29/2021 MRI CERVICAL SPINE Encounter Details Date Type Department Care Team Description 12/29/2021 Telephone Internal Medicine - [place] 175 [facility], [address] [place] [address] Najma Fay PA-C [address] [facility] [address] [place] [address] Prior Authorization (MRI CERVICAL SPINE) Social History Tobacco Use Types Packs/Day Years [...] AM EST documented as of this encounter Miscellaneous Notes * Telephone Encounter - Zora Hawthorne - 12/29/2021 10:41 AM EST [facility] Auth # [id number] Valid 12/28/21-06/26/22 Forwarded to Neuro philo P [id number]. They will call patient and schedule documented in this encounter Plan of Treatment Not on file documented as of this encounter Visit Diagnoses Not on filedocumented in this encounter Care Teams Fiber Optic Assembly Worker Relationship Specialty Start Date End Date Jim Tan PCP - General Internal Medicine 02/28/12 01/30/22 Cayla Peñaloza NP [address] [address] PCP - General Internal Medicine 01/31/22 05/25/24 [facility], Pcp [address] [address] PCP - General Internal Medicine 05/26/24 07/28/24 Jim Tan PCP - General Internal Medicine 07/29/24 08/05/24 Laura Car MD [address] [address] PCP - General Family Practice 08/25/24 Domonique Gibson MD [address] [address] Surgeon Neurosurgery 01/02/22 Najma Fay PA-C [address] [address] Specialist Neurosurgery 01/02/22 Jed Calix PA-C [address] [address] Specialist Neurosurgery 01/02/22 documented as of this encounter
--- OUTSIDE RECORDS SUMMARY | 2025-09-10 20:24 | XMS_ITS | Clinical Summary ---
Author Organization [facility] Address [address] [place] [address] Care Team Providers Care Meeting Specialist Name Role Phone Domonique Gibson MD Unavailable [phone] Najma Fay PA-C Unavailable [phone] Jed Calix PA-C Unavailable Laura Car MD [...] getting referral to cardiology Dr. Taylor at [facility]. She has history of lymphedema, her right [...] 87 12/30/2023 3:38 PM EST Temperature 36.3 C (97.3 F) 07/24/2022 1:37 PM EDT Respiratory Rate 17 12/07/2021 1:14 PM EST [...] Cancer Screening (Low D ose CT) 2017 BMI CHECK/ADVISE 10/28/2024 04/01/2024, 01/2024, 09/17/2023, Additional history exists Covid-19 Vaccine (3 2022-2 4 season) 2025 02/03/2021, 01/13/2021 INFLUENZA (#1) 2025 08/19/2024, 10/2023, 08/02/2023, Additional history exists PNEUMOCOCCAL VACCINE FOR HIG H RISK PATIENTS (#2) 2027 07/19/2017, 05/12/2015 DTAP/TDAP/TD (2 - Td or Tdap) 01/11/2034, 03/17/2016, 03/17/2016, Additional history exists Care Teams Meeting Specialist Relationship Specialty Start Date End Date Laura Car MD 175 [facility] [address] [place] [address] PCP - General Family Practice 08/25/24 Domonique Gibson MD 175 [facility] [address] [place] [address] Surgeon Neurosurgery 01/02/22 Najma Fay PA-C [address] [address] Specialist Neurosurgery 01/02/22 Jed Calix PA-C 175 [facility] [address] [place] [address] Specialist Neurosurgery 01/02/22
--- OUTSIDE RECORDS SUMMARY | 2025-09-10 20:24 | XMS_ITS | Encounter Summary ---
Author Organization [facility] Address [address] [place] [address] Care Team Providers Care Apprentice Embalmer Name Role Phone Domonique Gibson MD Unavailable [phone] Najma Fay PA-C Unavailable [phone] Jed Calix PA-C Unavailable Laura Car MD Primary Care Provider Unavailabl e Encounter Details Date Type Department Care Team Description 08/18/2024 SCAN [facility] Medical [facility] Neurosurgery [place] [address] [phone] Najma Fay PA-C [address] [phone] Social History Tobacco Use Types Packs/Day Years [...] on filedocumented in this encounter Care Teams Apprentice Embalmer Relationship Specialty Start Date End Date Laura Car MD [address] [address] PCP - General Family Practice 08/25/24 Domonique Gibson MD [address] [phone] Surgeon Neurosurgery 01/02/22 Najma Fay PA-C 175 [facility] [address] [place] [address] Specialist Neurosurgery 01/02/22 Jed Calix PA-C [address] [address] Specialist Neurosurgery 01/02/22 documented as of this encounter
--- OUTSIDE RECORDS SUMMARY | 2025-09-10 20:25 | XMS_ITS | Encounter Summary ---
Author Organization [facility] Address [address] [place] [address] Care Team Providers Care Wire Welder Name Role Phone Domonique Gibson MD Unavailable [phone] Najma Fay PA-C Unavailable Jed Calix PA-C Unavailable Cayla Peñaloza NP Primary Care Provider Unavailashkan mcintosh [facility], Pcp Primary Care Provider UnavailJim Hines Primary Care Provider UnavailLaura Quiroga MD Primary Care Provider Unavailashkan e Encounter Details Date Type Department Care Team Description 12/03/2023 SCAN [facility] Medical [facility] Neurosurgery [place] [address] [phone] Domonique Gibson MD [address] [address] Social History Tobacco Use Types Packs/Day Years [...] on filedocumented in this encounter Care Teams Wire Welder Relationship Specialty Start Date End Date Cayla Peñaloza NP [address] [address] PCP - General Internal Medicine 01/31/22 05/25/24 Community, Pcp [address] [address] PCP - General Internal Medicine 05/26/24 07/28/24 Jim Tan [address] [address] PCP - General Internal Medicine 07/29/24 08/05/24 Laura Car MD [address] [address] PCP - General Family Practice 08/25/24 Domonique Gibson MD [address] [address] Surgeon Neurosurgery 01/02/22 Najma Fay PA-C [address] [address] Specialist Neurosurgery 01/02/22 Jed Calix PA-C [address] [address] Specialist Neurosurgery 01/02/22 documented as of this encounter
--- OUTSIDE RECORDS SUMMARY | 2025-09-10 20:25 | XMS_ITS | Encounter Summary ---
Author Organization [facility] Address [address] [place] [address] Care Team Providers Care Tunnel Heading Inspector Name Role Phone Domonique Gibson MD Unavailable [phone] Najma Fay PA-C Unavailable Jed aClix PA-C Unavailable Cayla Peñaloza NP Primary Care Provider Unavailashkan [place], Pcp Primary Care Provider Jim Lewis Primary Care Provider Laura Antunez MD Primary Care Provider Unavailashkan e Encounter Details Date Type Department Care Team Description 10/24/2023 [facility] Medical [facility] Neurosurgery [place] [address] [phone] Jed Calix PA-C [address] [phone] Social History Tobacco Use Types Packs/Day Years [...] on filedocumented in this encounter Care Teams Tunnel Heading Inspector Relationship Specialty Start Date End Date Cayla Peñaloza NP [address] [address] PCP - General Internal Medicine 01/31/22 05/25/24 [facility], Pcp [address] [address] PCP - General Internal Medicine 05/26/24 07/28/24 Jim Tan [address] [address] PCP - General Internal Medicine 07/29/24 08/05/24 Laura Car MD [address] [address] PCP - General Family Practice 08/25/24 Domonique Gibson MD [address] [address] Surgeon Neurosurgery 01/02/22 Najma Fay PA-C [address] [address] Specialist Neurosurgery 01/02/22 Jed Calix PA-C [address] [address] Specialist Neurosurgery 01/02/22 documented as of this encounter
--- OUTSIDE RECORDS SUMMARY | 2025-09-10 20:25 | XMS_ITS | Clinical Summary ---
Author Organization [facility] Address [address] [place] [address] Care Team Providers Care Search Engine Optimization Strategist Name Role Phone Cayla Peñaloza NP Primary Care Provider [phone] Social History Tobacco Use Types Packs/Day Years [...] age to complete this topic Care Teams Search Engine Optimization Strategist Relationship Specialty Start Date End Date Cayla Peñaloza, TAMIA [address] [facility] [place] [address] PCP - General Family Medicine 03/20/19
--- OUTSIDE RECORDS SUMMARY | 2025-09-10 20:25 | XMS_ITS | Encounter Summary ---
Author Organization [facility] Address [address] [place] [address] Care Team Providers Care Product Safety Specialist Name Role Phone Domonique Gibson MD Unavailable [phone] Najma Fay PA-C Unavailable Jed Calix PA-C Unavailable Cayla Peñaloza NP Primary Care Provider Unavailashkan mcintosh [facility], Pcp Primary Care Provider UnavailJim Hines Primary Care Provider UnavailLaura Quiroga MD Primary Care Provider Unavailashkan e Encounter Details Date Type Department Care Team Description 11/14/2023 [facility] Neurosurgery [place] [address] [phone] Domonique Gibson MD [address] [phone] Social History Tobacco Use Types Packs/Day Years [...] on filedocumented in this encounter Care Teams Product Safety Specialist Relationship Specialty Start Date End Date Cayla Peñaloza NP [address] [address] PCP - General Internal Medicine 01/31/22 05/25/24 [facility], Pcp [address] [address] PCP - General Internal Medicine 05/26/24 07/28/24 Jim Tan [address] [address] PCP - General Internal Medicine 07/29/24 08/05/24 Laura Car MD [address] [address] PCP - General Family Practice 08/25/24 Domonique Gibson MD [address] [address] Surgeon Neurosurgery 01/02/22 Najma Fay PA-C [address] [address] Specialist Neurosurgery 01/02/22 Jed Calix PA-C [address] [address] Specialist Neurosurgery 01/02/22 documented as of this encounter
--- OUTSIDE RECORDS SUMMARY | 2025-09-10 20:25 | XMS_ITS | Encounter Summary ---
Author Organization [facility] Address [address] [place] [address] Care Team Providers Care Service Desk Analyst Name Role Phone Domonique Gibson MD Unavailable [phone] Najma Fay PA-C Unavailable [phone] Jed Calix PA-C Unavailable [facility], Pcp Primary Care Provider Jim Lewis Primary Care Provider Laura Antunez MD Primary Care Provider Diaz mcintosh Encounter Details Date Type Department Care Team Description 06/04/2024 Orders Only [facility] Medical [facility] Neurosurgery [place] [address] [phone] Najma Fay PA-C [address] [phone] Low back pain with sciatica, sciatica laterality unspecified, unspecified back pain laterality, unspecified chronicity Social History Tobacco Use Types Packs/Day Years [...] Priority Date/Time Associated Diagnosis Comments MRI OF LUMBAR SPINE W/WO CONTRAST Routine 06/02/2024 Low back pain with sciatica, sciatica laterality unspecified, unspecified back pain laterality, unspecified chronicity documented in this encounter Results * MRI OF LUMBAR SPINE W/WO CONTRAST (06/02/2024) Najma Fay PA-C MRI [facility] documented in this encounter Visit Diagnoses Diagnosis Low back pain with sciatica, sciatica laterality unspecified, unspecified back pain laterality, unspecified chronicity documented in this encounter Care Teams Service Desk Analyst Relationship Specialty Start Date End Date Community, Pcp [address] [address] PCP - General Internal Medicine 05/26/24 07/28/24 Jim Tan [address] [address] PCP - General Internal Medicine 07/29/24 08/05/24 Laura Car MD [address] [address] PCP - General Family Practice 08/25/24 Domonique Gibson MD [address] [address] Surgeon Neurosurgery 01/02/22 Najma Fay PA-C [address] [address] Specialist Neurosurgery 01/02/22 Jed Calix PA-C [address] [address] Specialist Neurosurgery 01/02/22 documented as of this encounter
--- OUTSIDE RECORDS SUMMARY | 2025-09-10 20:25 | XMS_ITS | Encounter Summary ---
Author Organization [facility] Address [address] [place] [address] Care Team Providers Care Hoist Operator Name Role Phone Domonique Gibson MD Unavailable [phone] Najma Fay PA-C Unavailable Jed CalixC Unavailable Cayla Peñaloza NP Primary Care Provider Unavailabl e [facility], Pcp Primary Care Provider Unavailabl e Jim Tan Primary Care Provider Unavaila Laura Grey MD Primary Care Provider Unavailabl e Reason for Visit * Reason Onset Date Comments allergies 04/25/2022 Encounter Details Date Type Department Care Team Description 04/25/2022 Telephone [facility] Medical [facility] Neurosurgery [place] [address] [phone] Domonique Gibson MD [address] [place] [address] allergies Social History Tobacco Use Types [...] on filedocumented in this encounter Care Teams Hoist Operator Relationship Specialty Start Date End Date Cayla Peñaloza NP [address] [address] PCP - General Internal Medicine 01/31/22 05/25/24 [facility], Pcp [address] [address] PCP - General Internal Medicine 05/26/24 07/28/24 Jim Tan [address] [address] PCP - General Internal Medicine 07/29/24 08/05/24 Laura Car MD [address] [address] PCP - General Family Practice 08/25/24 Domonique Gibson MD [address] [address] Surgeon Neurosurgery 01/02/22 Najma Fay PA-C [address] [address] Specialist Neurosurgery 01/02/22 Jed Calix PA-C [address] [address] Specialist Neurosurgery 01/02/22 documented as of this encounter
--- OUTSIDE RECORDS SUMMARY | 2025-09-10 20:25 | XMS_ITS | Encounter Summary ---
Author Organization [facility] Address [address] [place] [address] Care Team Providers Care Glass Selector Name Role Phone Domonique Gibson MD Unavailable [phone] Najma Fay PA-C Unavailable [phone] Jed Calix PA-C Unavailable [phone] Cayla Peñaloza NP Primary Care Provider Diaz mcintosh [facility], Pcp Primary Care Provider Jim Lewis Primary Care Provider Laura Antunez MD Primary Care Provider Unavailashkan e Encounter Details Date Type Department Care Team Description 02/02/2022 Release of Information Medical Records [address] [place] [address] Abstract, Provider Social History Tobacco Use Types [...] on filedocumented in this encounter Care Teams Glass Selector Relationship Specialty Start Date End Date Cayla Peñaloza, TAMIA 175 [facility] [address] [place] [address] PCP - General Internal Medicine 01/31/22 05/25/24 [facility], Pcp [address] [address] PCP - General Internal Medicine 05/26/24 07/28/24 Jim Tan [address] [address] PCP - General Internal Medicine 07/29/24 08/05/24 Laura Car MD [address] [address] PCP - General Family Practice 08/25/24 Domonique Gibson MD [address] [address] Surgeon Neurosurgery 01/02/22 Najma Fay PA-C [address] [address] Specialist Neurosurgery 01/02/22 Jed Calix PA-C [address] [address] Specialist Neurosurgery 01/02/22 documented as of this encounter
--- OUTSIDE RECORDS SUMMARY | 2025-09-10 20:25 | XMS_ITS | Encounter Summary ---
Author Organization [facility] Address [address] [place] [address] Care Team Providers Care Card Brusher Name Role Phone Domonique Gibson MD Unavailable [phone] Najma Fay PA-C Unavailable Jed Calix PA-C Unavailable Cayla Peñaloza NP Primary Care Provider Unavailashkan [facility], Pcp Primary Care Provider Jim Lewis Primary Care Provider Laura Antunez MD Primary Care Provider Unavailashkan e Encounter Details Date Type Department Care Team Description 11/14/2023 [facility] Neurosurgery [place] [address] [phone] Jed Calix PA-C [address] [phone] Social History Tobacco Use Types Packs/Day Years [...] on filedocumented in this encounter Care Teams Card Brusher Relationship Specialty Start Date End Date Cayla Peñaloza NP [address] [address] PCP - General Internal Medicine 01/31/22 05/25/24 [facility], Pcp [address] [address] PCP - General Internal Medicine 05/26/24 07/28/24 Jim Tan [address] [address] PCP - General Internal Medicine 07/29/24 08/05/24 Laura Car MD [address] [address] PCP - General Family Practice 08/25/24 Domonique Gibson MD [address] [address] Surgeon Neurosurgery 01/02/22 Najma Fay PA-C [address] [address] Specialist Neurosurgery 01/02/22 Jed Calix PA-C [address] [address] Specialist Neurosurgery 01/02/22 documented as of this encounter
--- OUTSIDE RECORDS SUMMARY | 2025-09-10 20:25 | XMS_ITS | Encounter Summary ---
Author Organization [facility] Address [address] [place] [address] Care Team Providers Care Para Machine Operator Name Role Phone Domonique Gibson MD Unavailable [phone] Najma Fay PA-C Unavailable Jed Calix PA-C Unavailable [phone] [facility], Pcp Primary Care Provider Jim Lewis Primary Care Provider Laura Antunez MD Primary Care Provider Diaz mcintosh Encounter Details Date Type Department Care Team Description 05/27/2024 SCAN [facility] Medical [facility] Neurosurgery [place] [address] [phone] Najma Fay PA-C [address] [phone] Social History Tobacco Use Types Packs/Day Years [...] on filedocumented in this encounter Care Teams Para Machine Operator Relationship Specialty Start Date End Date Community, Pcp [address] [address] PCP - General Internal Medicine 05/26/24 07/28/24 Jim Tan [address] [address] PCP - General Internal Medicine 07/29/24 08/05/24 Laura Car MD [address] [address] PCP - General Family Practice 08/25/24 Domonique Gibson MD [address] [address] Surgeon Neurosurgery 01/02/22 Najma Fay PA-C [address] [address] Specialist Neurosurgery 01/02/22 Jed Calix PA-C [address] [address] Specialist Neurosurgery 01/02/22 documented as of this encounter
== END 2025-09-10 14:54 | disposition home or self-care (01) ==
LOC: HO.HMCH 13:53
DX: G89.4 Chronic pain syndrome (principal); M06.00 Rheumatoid arthritis without rheumatoid factor, unspecified site; G62.9 Polyneuropathy, unspecified; J42 Unspecified chronic bronchitis; Z23 Encounter for immunization

== ENCOUNTER → 2025-09-10 13:51 | Outpatient (BNVA) | payer MEDICARE, SELFPAY | DX: G89.4 Chronic pain syndrome (principal); E11.51 Type 2 diabetes mellitus with diabetic peripheral angiopathy without gangrene; E11.65 Type 2 diabetes mellitus with hyperglycemia; E78.00 Pure hypercholesterolemia, unspecified; M79.604 Pain in right leg; M06.00 Rheumatoid arthritis without rheumatoid factor, unspecified site; G62.9 Polyneuropathy, unspecified; J42 Unspecified chronic bronchitis; Z23 Encounter for immunization | CPT/HCPCS: 90471; 90656; 96127; 99212 ==